=== PATIENT | female | born 1970 | race Caucasian/White ===

== ENCOUNTER 2016-08-20 11:55 | Inpatient (IN) | payer OTHER ==
[2016-08-20 12:00] VITALS: BMI 26.5
[2016-08-20] MEDS ORDERED: FAMOTIDINE 20 MG/50 ML IVPB 20 MG in PREMIX 50 IVPB ONE (12:20)
[2016-08-20] MEDS ORDERED: MAG HYDROX/AL HYDROX/SIMETH 355 ML ORAL.SUSP PO ONE (12:20)
[2016-08-20] MEDS ORDERED: SODIUM CHLORIDE 1,000 ML IV ONE (12:26)
--- NOTE | 2016-08-20 12:28 | PDOC ---
History of Present Illness - General History Source: Patient Exam Limitations: No Limitations <Eran Lucero - Last Filed: 08/20/16 15:41> - General History Source: Patient Exam Limitations: No Limitations - History of Present Illness Initial Comments: 08/20/16 16:29 The patient is a 46 year old female, with a significant past medical history of HTN, hypercholesterolemia, and DM who presents to the emergency department with right sided abdominal pain, nausea, and vomiting since yesterday. She describes the pain as an intermittent burning sensation that radiates up her chest/throat area, ranking her pain a 10/10 in pain intensity. She denies any alleviation from vomiting. She also notes having decreased appetite. She reports having multiple episodes of vomiting describing it as yellow at first, but reports that her vomit is now green in color. She denies recent chills, headache or dizziness. She denies recent diarrhea or constipation. She denies recent dysuria , frequency, urgency or hematuria. She denies recent shortness of breath. Allergies: Penicillins Past surgical history: Cholecystectomy. Tubal ligation. Social history: Nonsmoker. Denies EtOH use and drug use. Primary Care Physician: Not On Staff <Percy Padilla - Last Filed: 08/20/16 16:30> - General Chief Complaint: Pain, Acute Stated Complaint: ABD PAIN Time Seen by Provider: 08/20/16 12:11 Past History - Past Medical History Diabetes: Yes HTN: Yes Hypercholesterolemia: Yes - Surgical History Abdominal Surgery: (TUBAL LIGATION) Cholecystectomy: Yes - Psycho/Social/Smoking Cessation Hx Anxiety: No Suicidal Ideation: No Smoking Status: No Smoking History: Never smoked Number of Cigarettes Smoked Daily: 0 Hx Alcohol Use: No Drug/Substance Use Hx: No Substance Use Type: None Hx Substance Use Treatment: No <Eran Lucero - Last Filed: 08/20/16 15:41> <Percy Padilla - Last Filed: 08/20/16 16:30> - Past Medical History Allergies/Adverse Reactions: Allergies Allergy/AdvReac Type Severity Reaction Status Date / Time Penicillins Allergy Verified 08/20/16 12:00 Home Medications: Ambulatory Orders Enalapril Maleate [Vasotec -] 5 mg PO DAILY #0 tablet 03/03/13 Glipizide [Glucotrol -] 10 mg PO BID #0 tablet 03/03/13 Metformin HCl [Glucophage] 1,000 mg PO BID 04/07/13 Omeprazole [Prilosec (RX)] 40 mg PO DAILY 04/07/13 Simvastatin [Zocor -] 20 mg PO HS 04/07/13 Acetaminophen [Tylenol .Regular Strength -] 650 mg PO Q6H PRN #0 tablet Insulin Glargine,Hum.rec.anlog [Lantus Solostar PEN -] 20 units SQ HS #0 ins 03/22 Unobtainable 08/20/16 Review of Systems - Review of Systems Comments:: 08/20/16 16:30 CONSTITUTIONAL: +subjective fever and loss of appetite. No reported: Chills, Diaphoresis, Generalized Weakness, Malaise HEENT: No reported: Rhinorrhea, Nasal Congestion, Throat Pain, Throat Swelling, Difficulty Swallowing, Mouth Swelling, Ear Pain, Eye Pain, Visual Changes CARDIOVASCULAR: No reported: Chest Pain, Syncope, Palpitations, Irregular Heart Rate, Lightheadedness, Peripheral Edema RESPIRATORY: No reported: Cough, Shortness of Breath, SOB with Exertion, Orthopnea, Wheezing , Stridor, Hemoptysis GASTROINTESTINAL: +abd pain, nausea, and vomiting. No reported: Diarrhea, Constipation, Melena, Hematochezia GENITOURINARY: No reported: Dysuria, Frequency, Urgency, Hesitancy, Flank Pain, Genital Pain MUSCULOSKELETAL: No reported: Myalgia, Arthralgia, Joint Swelling, Back pain, Neck Pain SKIN: No reported: Rash, Itching, Pallor HEMATOLOGIC/IMMUNOLOGIC: No reported: Easy Bleeding, Easy Bruising, Lymphadenopathy, Frequent infections ENDOCRINE: No reported: Unexplained Weight Gain, Unexplained Weight Loss, Heat Intolerance , Cold Intolerance NEUROLOGIC: No reported: Headache, Focal Weakness, Paresthesias, Vertigo, Lightheadedness, Unsteady Gait, Seizure, Mental Status Changes, Incontinence PSYCHIATRIC: No reported: Anxiety, Depression <Percy Padilla - Last Filed: 08/20/16 16:30> *Physical Exam - Vital Signs Last Vital Signs Temp Pulse Resp BP Pulse Ox 98.2 F 122 H 16 155/94 99 08/20/16 11:57 08/20/16 11:57 08/20/16 11:57 08/20/16 11:57 08/20/16 11:57 <Eran Lucero - Last Filed: 08/20/16 15:41> - Vital Signs Last Vital Signs Temp Pulse Resp BP Pulse Ox 98.2 F 98 H 16 155/94 99 08/20/16 11:57 08/20/16 12:59 08/20/16 11:57 08/20/16 11:57 08/20/16 11:57 - Physical Exam Comments: 08/20/16 16:30 GENERAL: The patient is awake, alert, and fully oriented, Nontoxic - in no acute distress. HEAD: Normocephalic, atraumatic. EYES: extraocular movements intact, sclera anicteric, conjunctiva clear. ENT: Normal voice, dry mucous membranes. NECK: Normal range of motion, supple LUNGS: Breath sounds equal, clear to auscultation bilaterally. No wheezes, no rhonchi, no rales. HEART: +tachycardic. Regular rate and rhythm, without murmur, rub or gallop. ABDOMEN: MIld epigastric tenderness. Soft, normoactive bowel sounds. No guarding , no rebound.No CVA tenderness EXTREMITIES: Normal range of motion, no edema. No clubbing or cyanosis. No cords , erythema, or tenderness. NEUROLOGICAL: No facial asymmetry, Normal speech. PSYCH: Normal mood, normal affect. SKIN: Warm, Dry, normal turgor. <Percy Padilla - Last Filed: 08/20/16 16:30> Heart Score/ECG Review - ECG Impressions Comment:: 08/20/16 13:48 Twelve-lead EKG was performed and reviewed by me. There is normal sinus rhythm rate of 125 with some blocked beats no ST change ssuggestive of ischemia <Eran Lucero - Last Filed: 08/20/16 15:41> ED Treatment Course - LABORATORY CBC & Chemistry Diagram: 08/20/16 12:07 08/20/16 12:07 <Eran Lucero - Last Filed: 08/20/16 15:41> - LABORATORY CBC & Chemistry Diagram: 08/20/16 12:07 08/20/16 12:07 - ADDITIONAL ORDERS Additional order review: Laboratory Results 08/20/16 08/20/16 08/20/16 15:20 14:50 12:07 VBG pH 7.32 POC VBG pCO2 34.4 L POC VBG pO2 43.7 Mixed VBG HCO3 17.3 L Sodium 132 L Potassium 4.3 Chloride 95 L D Carbon Dioxide 20 L Anion Gap 17 H BUN 20 H D Creatinine 1.0 D Creat Clearance w eGFR 59.96 Random Glucose 482 H* D Calcium 9.6 Total Bilirubin 0.7 D AST 11 L ALT 25 Alkaline Phosphatase 122 H Creatine Kinase 38 Troponin I < 0.02 Total Protein 8.6 H D Albumin 3.6 D Lipase 91 Serum , Qual Urine Color Urine Appearance Urine pH Ur Specific [place] Urine Protein Urine Glucose (UA) Urine Ketones Urine Blood Urine Nitrite Urine Bilirubin Urine Urobilinogen Ur Leukocyte Esterase Urine RBC Urine WBC Ur Epithelial Cells Urine Crystals Urine Bacteria Hyaline Casts Acetone, Qual Positive moderate 2+ H 08/20/16 12:07 VBG pH POC VBG pCO2 POC VBG pO2 Mixed VBG HCO3 Sodium Potassium Chloride Carbon Dioxide Anion Gap BUN Creatinine Creat Clearance w eGFR Random Glucose Calcium Total Bilirubin AST ALT Alkaline Phosphatase Creatine Kinase Troponin I Total Protein Albumin Lipase Serum , Qual Negative Urine Color Colorless Urine Appearance Clear Urine pH 5.0 Ur Specific [place] 1.031 Urine Protein 2+ H Urine Glucose (UA) 3+ H Urine Ketones 2+ H Urine Blood 1+ H Urine Nitrite Negative Urine Bilirubin Negative Urine Urobilinogen Negative Ur Leukocyte Esterase Trace H Urine RBC 4 Urine WBC 7 Ur Epithelial Cells Few Urine Crystals None seen Urine Bacteria Rare Hyaline Casts 1 Acetone, Qual 08/20/16 12:07 RBC 4.65 MCV 75.0 L MCHC 33.0 RDW 14.7 MPV 8.4 Neutrophils % 84.7 H Lymphocytes % 10.7 D Monocytes % 4.0 Eosinophils % 0.0 D Basophils % 0.6 - Medications Given in the ED: ED Medications Discontinued Medications Generic Name Dose Route Start Last Admin Trade Name Freq PRN Reason Stop Dose Admin Al Hydroxide/Mg Hydroxide 30 ml 08/20/16 12:20 08/20/16 12:50 Mylanta Suspension - PO 08/20/16 12:21 30 ml ONCE ONE Administration Famotidine/Sodium Chloride 20 50 mls @ 100 mls/hr 08/20/16 12:20 08/20/16 12:45 mg/ Miscellaneous IVPB 08/20/16 12:49 100 mls/hr ONCE ONE Administration Sodium Chloride 1,000 mls @ 1,000 mls/hr 08/20/16 12:26 08/20/16 12:45 Normal Saline - IV 08/20/16 13:25 1,000 mls/hr .Q1H ONE Administration Sodium Chloride 1,000 mls @ 1,000 mls/hr 08/20/16 14:04 08/20/16 14:25 Normal Saline - IV 08/20/16 15:03 1,000 mls/hr ASDIR STA Administration <Percy Padilla - Last Filed: 08/20/16 16:30> Medical Decision Making - Medical Decision Making 08/20/16 12:22 46y F hx of htn, dm, hl presents with 1 day of epgiastric/pain radiating to the throat associated with multiple episodes of vomiting that is yellowish and greenish without asociated sob, f/c, diarrhea. on exam the pt was noted to be tachy to 122, with mild epigastric tendreness. differential includes possible gastritis, pancreatitis, obstruction, consider possible ACS, dka will fluid resusitate will give pepcid/maalox, will ck cbc, cmp, lipase, trops will ck ekg will send acetone will place on monitor will r/o uti, 08/20/16 13:03 08/20/16 15:38 pts labs reviewed noted for hyperglycemia, AG of 17, bicarb of 20, serum acetones were +2 pts VBG (obtanied after acetones were returned) shows low normal but not formally acidosis. will give pt insulin bolus and will recheck BGM and manage using boluses of insulin vitals stabilized will admit to med surge case d/w dr. todd (endocrine) and dr. Alegria - agreed with mangement stable for med surg Case discussed in detail with admitting physician including history, physical exam and ancillary studies. Admitting physician has assumed care for the patient, will follow all pending diagnostics and will complete the evaluation and treatment. <Erna Lucero - Last Filed: 08/20/16 15:41> - Medical Decision Making 08/20/16 15:29 Call made to , case discussed. <Percy Padilla - Last Filed: 08/20/16 16:30> *DC/Admit/Observation/Transfer - Discharge Dispostion Admit: Yes <Eran Lucero - Last Filed: 08/20/16 15:41> - Attestations Scribe Attestion: 08/20/16 15:30 Documentation prepared by Percy Padilla, acting as medical social worker for Eran Lucero MD. <Percy Padilla - Last Filed: 08/20/16 16:30> Diagnosis at time of Disposition: Hyperglycemia DKA (diabetic ketoacidoses) Qualifiers: Diabetes mellitus type: type 2 Diabetes mellitus complication detail: without coma Qualified Code(s): E13.10 - Other specified diabetes mellitus with ketoacidosis without coma
[2016-08-20] MEDS ORDERED: FAMOTIDINE 20 MG/50 ML IVPB 50 ML IVPB ONE (12:58)
[2016-08-20] MEDS ORDERED: MAG HYDROX/AL HYDROX/SIMETH 30 ML UNIT-DOSE CUP ONE (12:58)
[2016-08-20 13:04] LABS: BASOPHIL 0.6 % (0-2.0); MCH 24.8 pg (25.7-33.7); MEAN PLT VOLUME 8.4 fl (7.5-11.1); NEUTROPHILS 84.7 % (42.8-82.8); PLATELET COUNT 372 K/MM3 (134-434); RDW 14.7 % (11.6-15.6); WHITE BLOOD COUNT 9.7 K/mm3 (4.0-10.0)
[2016-08-20 13:19] LABS: URINE APPEARANCE CLEAR; URINE BILIRUBIN NEGATIVE (NEGATIVE); URINE COLOR COLORLESS; URINE GLUCOSE (UA) 3+ (NEGATIVE); URINE KETONE 2+ (NEGATIVE); URINE NITRITE NEGATIVE (NEGATIVE); URINE UROBILINOGEN NEGATIVE E.U./dl (0.2-1.0)
[2016-08-20 13:28] LABS: ALBUMIN 3.6 g/dl (3.4-5.0); ANION GAP 17 (8-16); CALCIUM 9.6 mg/dL (8.5-10.1); CO2 20 mmol/L (21-32); SGPT/ALT 25 U/L (12-78)
[2016-08-20 13:33] LABS: ALK PHOS 122 U/L (45-117); BILIRUBIN,TOTAL 0.7 mg/dL (0.2-1.0); COCKROFT - GAULT 76.3045; SGOT/AST 11 U/L (15-37); TOT PROT 8.6 g/dl (6.4-8.2); TROPONIN I < 0.02 ng/ml (0.00-0.05)
[2016-08-20 13:38] LABS: URINE BLOOD 1+ (NEGATIVE); URINE LEUK ESTERASE TRACE (NEGATIVE); URINE PROTEIN 2+ (NEGATIVE)
[2016-08-20] MEDS ORDERED: SODIUM CHLORIDE 1,000 ML IV STA (14:04)
[2016-08-20 14:19] LABS: URINE RBC 4 /hpf (0-3); URINE WBC 7 /hpf (3-5)
[2016-08-20 14:20] LABS: URINE BACTERIA RARE /hpf (NONE SEEN); URINE HYALINE CAST 1 /lpf
[2016-08-20 15:16] LABS: GLUCOSE,RANDOM 482 mg/dL (74-106)
[2016-08-20 15:22] LABS: VENOUS BLOOD GAS HCO3 17.3 meq/L (19-25); VENOUS PH 7.32 (7.32-7.42)
[2016-08-20] MEDS ORDERED: INSULIN REGULAR HUMAN 100 UNITS/ML *VIAL SQ ONE (15:30)
[2016-08-20] MEDS ORDERED: INSULIN REGULAR HUMAN 100 UNITS/ML *VIAL ONE ×2 (15:34→17:14)
--- NOTE | 2016-08-20 15:42 | EKG ---
Test Reason : Blood Pressure : / mmHG Vent. Rate : 098 BPM Atrial Rate : 117 BPM P-R Int : 120 ms QRS Dur : 080 ms QT Int : 328 ms P-R-T Axes : 067 061 046 degrees QTc Int : 418 ms SINUS TACHYCARDIA WITH BLOCKED PREMATURE ATRIAL COMPLEXES POSSIBLE LEFT ATRIAL ENLARGEMENT BORDERLINE ECG WHEN COMPARED WITH ECG OF 05-SEP-2014 05:36, PREMATURE ATRIAL COMPLEXES ARE NOW PRESENT Confirmed by AGNES CAMARA, NUHA ([id number]) on 08/20/2016 3:42:33 PM Referred By: Confirmed By:NUHA ALARCON MD
[2016-08-20] MEDS ORDERED: SODIUM CHLORIDE 1,000 ML IV SCH (16:15)
[2016-08-20] MEDS ORDERED: INSULIN REGULAR HUMAN 100 UNITS/ML *VIAL IVPUSH ONE (17:00)
[2016-08-20] MEDS ORDERED: POTASSIUM CHLORIDE TABS 20 MEQ TABLET.ER (FP) PO ONE ×2 (17:12→17:31)
[2016-08-20] MEDS ORDERED: diphenhydrAMINE HCL 25 MG CAPSULE (FP) PO PRN (20:46)
--- NOTE | 2016-08-20 20:46 | HP ---
Admitting History and Physical - Past Medical History Cardiovascular: Yes: Hyperlipdemia ...LMP: 03/29/13 Endocrine: Yes: Diabetes Mellitus - Smoking History Smoking history: Never smoked Aproximately how many cigarettes per day: 0 - Alcohol/Substance Use Hx Alcohol Use: No - Social History History of Recent Travel: No Home Medications - Allergies Allergies/Adverse Reactions: Allergies Allergy/AdvReac Type Severity Reaction Status Date / Time Penicillins Allergy Verified 08/20/16 12:00 - Home Medications Home Medications: Ambulatory Orders Enalapril Maleate [Vasotec -] 10 mg PO DAILY 08/20/16 Insulin (Levemir) [Levemir Vial] 10 units SQ HS ml 08/26/16 Insulin (Levemir) [Levemir Vial] 10 units SQ HS #1 ml 08/26/16 Pantoprazole Sodium [Protonix] 40 mg PO DAILY #30 tablet. 08/26/16 Physical Examination Vital Signs: Vital Signs Temperature 99.0 F 08/20/16 20:14 Pulse Rate 122 H 08/20/16 20:14 Respiratory Rate 18 08/20/16 20:14 Blood Pressure 146/77 08/20/16 20:14 O2 Sat by Pulse Oximetry (%) 98 08/20/16 20:14 Problem List - Problems (1) DKA (diabetic ketoacidoses) Code(s): E13.10 - OTH DIABETES MELLITUS WITH KETOACIDOSIS WITHOUT COMA Qualifiers: Diabetes mellitus type: type 2 Diabetes mellitus complication detail: without coma Qualified Code(s): E13.10 - Other specified diabetes mellitus with ketoacidosis without coma (2) Nausea and vomiting Code(s): R11.2 - NAUSEA WITH VOMITING, UNSPECIFIED
[2016-08-20] MEDS: SODIUM CHLORIDE 0.45% 1,000 ML IV SCH (22:57)
[2016-08-20] MEDS: HEPARIN NA (PORCINE) 5,000 UNITS/ML 1ML VIAL SQ SCH (22:57)
[2016-08-20] MEDS: INSULIN SLIDING SCALE (NOVOLOG) 1 VIAL SQ SCH (23:11)
[2016-08-21] MEDS: ONDANSETRON 4 MG/2 ML VIAL IVPB PRN ×2 (00:10→09:27)
[2016-08-21] MEDS: INSULIN SLIDING SCALE (NOVOLOG) 1 VIAL SQ SCH ×5 (02:12→23:14)
[2016-08-21] MEDS: metFORMIN HCL 500 MG TABLET (FP) PO SCH ×2 (06:06→17:20)
[2016-08-21 07:20] LABS: BASOPHIL 0.4 % (0-2.0); EOSINOPHIL 0.1 % (0-4.5); MCH 24.7 pg (25.7-33.7); MCHC 33.4 g/dl (32.0-36.0); MEAN CELL VOLUME 73.8 fl (80-96); NEUTROPHILS 73.7 % (42.8-82.8); PLATELET COUNT 304 K/MM3 (134-434); RDW 14.9 % (11.6-15.6)
[2016-08-21 07:33] LABS: ALBUMIN 2.9 g/dl (3.4-5.0); ANION GAP 11 (8-16); CALCIUM 8.3 mg/dL (8.5-10.1); CO2 22 mmol/L (21-32); GLUCOSE,RANDOM 206 mg/dL (74-106); SGOT/AST 10 U/L (15-37); SGPT/ALT 19 U/L (12-78)
[2016-08-21 07:35] LABS: ALK PHOS 95 U/L (45-117); BILIRUBIN,TOTAL 0.5 mg/dL (0.2-1.0); CREATININE 0.6 mg/dL (0.55-1.02); TOT PROT 6.9 g/dl (6.4-8.2)
[2016-08-21] MEDS: SODIUM CHLORIDE 0.45% 1,000 ML IV SCH (08:54)
--- NOTE | 2016-08-21 09:14 | CONSULT ---
Consult Consult Specialty:: Endocrinology Referred by:: Dr Lucero Reason for Consultation:: HYperglycemia - History of Present Illness Chief Complaint: Abdominal pain, nausea History of Present Illness: This is a 46 year old female, with history of HTN, hypercholesterolemia, and DM who presented to the emergency department with right sided abdominal pain, nausea, and vomiting for 2 days. She describes the pain as an intermittent burning sensation that radiates up her chest/throat area, ranking her pain a 10/ 10 in pain intensity. She denies any alleviation from vomiting. Pt found to be hyperglycemic with mild acidosis and treated with IV hydration and Insulin with resolution acidosis and hyperglycemia. Pt referred for mangaement of DM. Pt still with c/o Nausea and vomiting. Pt says she hasn't taken Insulin for sometime but has been taking the oral antidiabetic agents. FS at home 140 to 180. No hypos. - History Source History Provided By: Patient, Medical Record - Past Medical History Cardio/Vascular: Yes: Hyperlipdemia ...LMP: 03/29/13 Endocrine: Yes: Diabetes Mellitus - Alcohol/Substance Use Hx Alcohol Use: No - Smoking History Smoking history: Never smoked Aproximately how many cigarettes per day: 0 - Social History Usual Living Arrangement: With Spouse History of Recent Travel: No Home Medications - Allergies Allergies/Adverse Reactions: Allergies Allergy/AdvReac Type Severity Reaction Status Date / Time Penicillins Allergy Verified 08/20/16 12:00 - Home Medications Home Medications: Ambulatory Orders Metformin HCl [Glucophage] 1,000 mg PO BID 04/07/13 Omeprazole [Prilosec (RX)] 40 mg PO DAILY 04/07/13 Enalapril Maleate [Vasotec -] 10 mg PO DAILY 08/20/16 Review of Systems - Review of Systems Constitutional: reports: Loss of Appetite, Malaise Eyes: reports: No Symptoms HENT: reports: No Symptoms Neck: reports: No Symptoms Cardiovascular: reports: No Symptoms Respiratory: reports: No Symptoms Gastrointestinal: reports: Abdominal Pain, Nausea, Vomiting Genitourinary: reports: No Symptoms Musculoskeletal: reports: No Symptoms Neurological: reports: No Symptoms Endocrine: reports: No Symptoms Physical Exam Vital Signs: Vital Signs Temperature 99.1 F 08/21/16 06:20 Pulse Rate 110 H 08/21/16 06:20 Respiratory Rate 20 08/21/16 06:20 Blood Pressure 161/85 08/21/16 06:20 O2 Sat by Pulse Oximetry (%) 98 08/20/16 22:00 Constitutional: Yes: No Distress, Calm Eyes: Yes: Conjunctiva Clear, EOM Intact HENT: Yes: Atraumatic, Normocephalic Neck: Yes: Supple, Trachea Midline Cardiovascular: Yes: Regular Rate and Rhythm Respiratory: Yes: Regular, CTA Bilaterally Gastrointestinal: Yes: Normal Bowel Sounds, Soft Extremities: Yes: WNL Edema: No Neurological: Yes: Alert, Oriented Labs: CBC, BMP 08/21/16 06:40 08/21/16 06:40 Imaging - Results Chest X-ray: Report Reviewed Assessment/Plan AP: DM uncontrolled with hyperlglycemia BM Q4 hrs Novolog SS coverage for now Change IVF to D5NS if blood sugar drops to less than 120 Start long acting Insulin and nutrition consult once pt is able tolerate food CMP with Mag and Phos in morning Electrolyte replacement as necessary Check HBA1c Will f/U Abd Pain/ Nausea/vomiting Consider GI Consult.
[2016-08-21] MEDS: PANTOPRAZOLE 40 MG TABLET (FP) PO SCH (10:01)
[2016-08-21] MEDS: HEPARIN NA (PORCINE) 5,000 UNITS/ML 1ML VIAL SQ SCH ×2 (10:01→23:10)
[2016-08-21] MEDS ORDERED: INSULIN (NOVOLOG) ASPART 100 UNITS/ML 10ML VIAL ONE (10:13)
[2016-08-21] MEDS: KETOROLAC TROMETHAMINE 30 MG/1 ML VIAL IVPB PRN ×2 (10:56→23:37)
[2016-08-21] MEDS: MAG HYDROX/AL HYDROX/SIMETH 30 ML UNIT-DOSE CUP PO PRN (13:15)
[2016-08-21] MEDS ORDERED: INSULIN SLIDING SCALE (NOVOLOG) 1 VIAL SQ SCH (17:09)
[2016-08-21] MEDS ORDERED: DEXTROSE 5%-NORMAL SALINE 1,000 ML IV SCH (18:15)
--- NOTE | 2016-08-21 18:23 | PN ---
Progress Note, Physician - Current Medication List Current Medications: Active Medications Al Hydroxide/Mg Hydroxide (Mylanta Oral Suspension -) 30 ml PO Q8H PRN PRN Reason: INDIGESTION Last Admin: 08/21/16 13:15 Dose: 30 ml Diphenhydramine HCl (Benadryl -) 25 mg PO HS PRN PRN Reason: INSOMNIA Last Admin: 08/20/16 22:57 Dose: 25 mg Heparin Sodium (Porcine) (Heparin -) 5,000 unit SQ BID [facility] Last Admin: 08/21/16 10:01 Dose: 5,000 unit Dextrose/Sodium Chloride (D5-Ns -) 1,000 mls @ 75 mls/hr IV ASDIR [facility] Last Admin: 08/21/16 18:19 Dose: 75 mls/hr Insulin Aspart (Novolog Vial Sliding Scale -) 1 vial SQ Q4HPO [facility] PRN Reason: Protocol Last Admin: 08/21/16 18:20 Dose: 2 units Ketorolac Tromethamine (Toradol Injection -) 30 mg IVPB Q8H PRN PRN Reason: PAIN Stop: 08/26/16 10:43 Last Admin: 08/21/16 10:56 Dose: 30 mg Ondansetron HCl (Zofran Injection) 4 mg IVPB Q6H PRN PRN Reason: NAUSEA AND/OR VOMITING Last Admin: 08/21/16 09:27 Dose: 4 mg Pantoprazole Sodium (Protonix -) 40 mg PO DAILY [facility] Last Admin: 08/21/16 10:01 Dose: 40 mg - Objective Vital Signs: Vital Signs Temperature 98.2 F 08/21/16 14:00 Pulse Rate 110 H 08/21/16 14:00 Respiratory Rate 20 08/21/16 14:00 Blood Pressure 150/90 08/21/16 14:00 O2 Sat by Pulse Oximetry (%) 98 08/21/16 09:00 Labs: CBC, BMP 08/21/16 06:40 08/21/16 06:40
[2016-08-21 19:02] LABS: ANION GAP 11 (8-16); BILIRUBIN,TOTAL 0.6 mg/dL (0.2-1.0); CALCIUM 8.6 mg/dL (8.5-10.1); CO2 25 mmol/L (21-32); CREATININE 0.5 mg/dL (0.55-1.02); GLUCOSE,RANDOM 157 mg/dL (74-106); SGOT/AST 16 U/L (15-37); SGPT/ALT 22 U/L (12-78); TOT PROT 6.9 g/dl (6.4-8.2)
[2016-08-21 19:03] LABS: ALK PHOS 89 U/L (45-117)
[2016-08-22] MEDS: MAG HYDROX/AL HYDROX/SIMETH 30 ML UNIT-DOSE CUP PO PRN ×2 (01:59→06:59)
[2016-08-22] MEDS: ONDANSETRON 4 MG/2 ML VIAL IVPB PRN ×3 (01:59→15:54)
[2016-08-22] MEDS: KETOROLAC TROMETHAMINE 30 MG/1 ML VIAL IVPB PRN ×2 (06:59→15:53)
[2016-08-22] MEDS: INSULIN SLIDING SCALE (NOVOLOG) 1 VIAL SQ SCH ×4 (07:03→21:55)
[2016-08-22 09:29] LABS: ALBUMIN 2.8 g/dl (3.4-5.0); ANION GAP 11 (8-16); BILIRUBIN,TOTAL 0.4 mg/dL (0.2-1.0); CO2 25 mmol/L (21-32); CREATININE 0.5 mg/dL (0.55-1.02); GLUCOSE,RANDOM 239 mg/dL (74-106); PHOSPHOROUS 2.3 mg/dL (2.5-4.9); SGOT/AST 20 U/L (15-37); SGPT/ALT 25 U/L (12-78); TOT PROT 6.8 g/dl (6.4-8.2)
[2016-08-22 09:30] LABS: ALK PHOS 86 U/L (45-117)
[2016-08-22] MEDS: PANTOPRAZOLE 40 MG TABLET (FP) PO SCH (10:12)
[2016-08-22] MEDS: HEPARIN NA (PORCINE) 5,000 UNITS/ML 1ML VIAL SQ SCH ×2 (10:12→21:54)
--- NOTE | 2016-08-22 12:01 | PN ---
Progress Note (short form) - Note Progress Note: Feels better but still with nausea and vomiting once today Had BM today Poor oral intake Vital Signs Period Temp Pulse Resp BP Sys/Aguilar Pulse Ox Last 24 Hr 97.5 F-98.8 F 105-110 20-20 150-162/88-97 98-98 PE: Aox3 Neck: supple, No JVD HEENT:PERRL, EOMI Lungs: CTA CVS: S1S2 Abd: benign< +BS, Mild diffuse tenderness Ext: No edema Neuro: No focal deficit CMP Sodium 133 mmol/L (136-145) L 08/22/16 07:30 Potassium 3.4 mmol/L (3.5-5.1) L 08/22/16 07:30 Chloride 97 mmol/L (98-107) L 08/22/16 07:30 Carbon Dioxide 25 mmol/L (21-32) 08/22/16 07:30 Anion Gap 11 (8-16) 08/22/16 07:30 BUN 9 mg/dL (7-18) D 08/22/16 07:30 Creatinine 0.5 mg/dL (0.55-1.02) L 08/22/16 07:30 Creat Clearance w eGFR > 60 (>60) 08/22/16 07:30 POC Glucometer 220 UNITS (()) 08/22/16 06:40 Random Glucose 239 mg/dL (74-106) H D 08/22/16 07:30 Hemoglobin A1c % 12.5 % (4.8-6.0) H D 08/21/16 06:40 Calcium 8.0 mg/dL (8.5-10.1) L 08/22/16 07:30 Phosphorus 2.3 mg/dL (2.5-4.9) L 08/22/16 07:30 Magnesium 2.0 mg/dL (1.8-2.4) 08/22/16 07:30 Total Bilirubin 0.4 mg/dL (0.2-1.0) D 08/22/16 07:30 AST 20 U/L (15-37) D 08/22/16 07:30 ALT 25 U/L (12-78) 08/22/16 07:30 Alkaline Phosphatase 86 U/L (45-117) 08/22/16 07:30 Creatine Kinase 38 IU/L (26-192) 08/20/16 12:07 Troponin I < 0.02 ng/ml (0.00-0.05) 08/20/16 12:07 Total Protein 6.8 g/dl (6.4-8.2) 08/22/16 07:30 Albumin 2.8 g/dl (3.4-5.0) L 08/22/16 07:30 Lipase 91 U/L (73-393) 08/20/16 12:07 Serum , Qual Negative 08/20/16 12:07 Current Medications Generic Name Dose Route Start Last Admin Trade Name Freq PRN Reason Stop Dose Admin Al Hydroxide/Mg Hydroxide 30 ml 08/21/16 12:48 08/22/16 06:59 Mylanta Oral Suspension - PO 30 ml Q8H PRN Administration INDIGESTION Diphenhydramine HCl 25 mg 08/20/16 20:46 08/20/16 22:57 Benadryl - PO 25 mg HS PRN Administration INSOMNIA Heparin Sodium (Porcine) 5,000 unit 08/20/16 22:00 08/22/16 10:12 Heparin - SQ 5,000 unit BID ROCÍO Administration Dextrose/Sodium Chloride 1,000 mls @ 75 mls/hr 08/21/16 18:15 08/21/16 18:19 D5-Ns - IV 75 mls/hr ASDIR ROCÍO Administration Insulin Aspart 1 vial 08/21/16 22:00 08/22/16 07:03 Novolog Vial Sliding Scale - SQ 4 units ACHS ROCÍO Administration Protocol Ketorolac Tromethamine 30 mg 08/21/16 10:44 08/22/16 06:59 Toradol Injection - IVPB 08/26/16 10:43 30 mg Q8H PRN Administration PAIN Ondansetron HCl 4 mg 08/20/16 23:53 08/22/16 08:44 Zofran Injection IVPB 4 mg Q6H PRN Administration NAUSEA AND/OR VOMITING Pantoprazole Sodium 40 mg 08/21/16 10:00 08/22/16 10:12 Protonix - PO 40 mg DAILY ROCÍO Administration AP: DM uncontrolled with hyperlglycemia BM Q4 hrs Novolog SS coverage for now Change IVF to D5NS with 20meq KCL 75 ml/hr Start long acting Insulin and nutrition consult once pt is able tolerate food CMP in a.m. Electrolyte replacement as necessary HBA1c: 12.5 Will f/U Monitor blood pressure Abd Pain/ Nausea/vomiting Consider GI Consult.
[2016-08-22] MEDS: D5-NS + 20 MEQ KCL - 1,000 ML IV SCH (12:22)
--- NOTE | 2016-08-22 15:40 | CON.GI ---
Consult Consult Specialty:: GI Referred by:: Dr Alegria Reason for Consultation:: N/V/D and abdominal pain. - History of Present Illness Chief Complaint: abdominal pain History of Present Illness: 46 F with h/o metabolic syndrome with DM x 11 years, admitted with a 3 day h/o epigastric/RUQ pain which she describes as severe, with N/V/D. She states vomitus was bilious. - History Source History Provided By: Patient, Medical Record Limitations to Obtaining History: No Limitations - Past Medical History Cardio/Vascular: Yes: HTN, Hyperlipdemia ...LMP: 03/29/13 Endocrine: Yes: Diabetes Mellitus - Alcohol/Substance Use Hx Alcohol Use: No - Smoking History Smoking history: Never smoked Aproximately how many cigarettes per day: 0 - Social History Usual Living Arrangement: With Spouse History of Recent Travel: No Home Medications - Allergies Allergies/Adverse Reactions: Allergies Allergy/AdvReac Type Severity Reaction Status Date / Time Penicillins Allergy Verified 08/20/16 12:00 - Home Medications Home Medications: Ambulatory Orders Metformin HCl [Glucophage] 1,000 mg PO BID 04/07/13 Omeprazole [Prilosec (RX)] 40 mg PO DAILY 04/07/13 Enalapril Maleate [Vasotec -] 10 mg PO DAILY 08/20/16 Physical Exam-GI Vital Signs: Vital Signs Temperature 99.8 F H 08/22/16 15:22 Pulse Rate 105 H 08/22/16 15:22 Respiratory Rate 20 08/22/16 15:22 Blood Pressure 145/101 08/22/16 15:22 O2 Sat by Pulse Oximetry (%) 98 08/22/16 09:00 Constitutional: Yes: Well Nourished, No Distress HENT: Yes: Normocephalic Neck: Yes: Supple Cardiovascular: Yes: Regular Rate and Rhythm Respiratory: Yes: CTA Bilaterally Gastrointestinal Inspection: Yes: WNL ...Auscultate: Yes: Normoactive Bowel Sounds ...Palpate: Yes: Soft, Tenderness, Tenderness, Epigastium Labs: CBC, BMP 08/21/16 06:40 08/22/16 07:30 Hepatic Panel Total Bilirubin 0.4 mg/dL (0.2-1.0) D 08/22/16 07:30 AST 20 U/L (15-37) D 08/22/16 07:30 ALT 25 U/L (12-78) 08/22/16 07:30 Alkaline Phosphatase 86 U/L (45-117) 08/22/16 07:30 Albumin 2.8 g/dl (3.4-5.0) L 08/22/16 07:30 Abnormal Lab Results 08/21/16 08/22/16 18:00 07:30 Sodium 134 L 133 L Potassium 3.4 L Chloride 97 L Creatinine 0.5 L 0.5 L Random Glucose 157 H D 239 H D Calcium 8.0 L Phosphorus 2.3 L Albumin 3.0 L 2.8 L Imaging - Results Ultrasound: Report Reviewed (sl hepatomegaly, s/p alecia, no ductal dilation) Assessment/Plan 46 F with above history admitted with severe abd pain and N/V Pain symptoms suggest nephrolithiasis (+) blood in urine For now, PPI, reglan 5 tid, Clear liquid diet
[2016-08-22] MEDS: PANTOPRAZOLE SODIUM 100 ML IVPB SCH (15:53)
--- NOTE | 2016-08-22 19:46 | PN ---
Progress Note, Physician History of Present Illness: No abdominal pain Howegver pt still w. some nausea but tolerating diet - Current Medication List Current Medications: Active Medications Al Hydroxide/Mg Hydroxide (Mylanta Oral Suspension -) 30 ml PO Q8H PRN PRN Reason: INDIGESTION Last Admin: 08/22/16 06:59 Dose: 30 ml Diphenhydramine HCl (Benadryl -) 25 mg PO HS PRN PRN Reason: INSOMNIA Last Admin: 08/20/16 22:57 Dose: 25 mg Heparin Sodium (Porcine) (Heparin -) 5,000 unit SQ BID ROCÍO Last Admin: 08/22/16 10:12 Dose: 5,000 unit Dextrose/Sodium Chloride (Dextrose 5%-Normal Saline+20 Meq Kcl -) 1,000 mls @ 75 mls/hr IV ASDIR [facility] Last Admin: 08/22/16 12:22 Dose: 75 mls/hr Pantoprazole Sodium (Protonix 40mg Ivpb (Pre-Docked)) 100 mls @ 200 mls/hr IVPB DAILY [facility] Last Admin: 08/22/16 15:53 Dose: 200 mls/hr Insulin Aspart (Novolog Vial Sliding Scale -) 1 vial SQ ACHS ROCÍO PRN Reason: Protocol Last Admin: 08/22/16 17:59 Dose: 2 units Ketorolac Tromethamine (Toradol Injection -) 30 mg IVPB Q8H PRN PRN Reason: PAIN Stop: 08/26/16 10:43 Last Admin: 08/22/16 15:53 Dose: 30 mg Ondansetron HCl (Zofran Injection) 4 mg IVPB Q6H PRN PRN Reason: NAUSEA AND/OR VOMITING Last Admin: 08/22/16 15:54 Dose: 4 mg - Objective Vital Signs: Vital Signs Temperature 99.3 F 08/22/16 18:05 Pulse Rate 105 H 08/22/16 18:05 Respiratory Rate 20 08/22/16 18:05 Blood Pressure 161/82 08/22/16 18:05 O2 Sat by Pulse Oximetry (%) 98 08/22/16 09:00 Constitutional: Yes: Well Nourished Neck: Yes: Supple Cardiovascular: Yes: WNL, Regular Rate and Rhythm Respiratory: Yes: WNL, Regular, CTA Bilaterally Gastrointestinal: Yes: WNL, Normal Bowel Sounds, Soft Labs: CBC, BMP 08/21/16 06:40 08/22/16 07:30 Problem List - Problems (1) DKA (diabetic ketoacidoses) Assessment/Plan: Change FS to before meals Cont sliding scale Cont IVF HgA1c elevated at 12 Code(s): E13.10 - OTH DIABETES MELLITUS WITH KETOACIDOSIS WITHOUT COMA Qualifiers: Diabetes mellitus type: type 2 Diabetes mellitus complication detail: without coma Qualified Code(s): E13.10 - Other specified diabetes mellitus with ketoacidosis without coma (2) Nausea and vomiting Assessment/Plan: ?gastroparesis Awaiting gastric emptying GI consult Cont zofran Advance diet Code(s): R11.2 - NAUSEA WITH VOMITING, UNSPECIFIED
[2016-08-23] MEDS: D5-NS + 20 MEQ KCL - 1,000 ML IV SCH ×2 (01:41→18:11)
[2016-08-23] MEDS: KETOROLAC TROMETHAMINE 30 MG/1 ML VIAL IVPB PRN ×2 (01:46→21:02)
[2016-08-23] MEDS: ONDANSETRON 4 MG/2 ML VIAL IVPB PRN ×3 (02:17→20:17)
[2016-08-23] MEDS: INSULIN SLIDING SCALE (NOVOLOG) 1 VIAL SQ SCH ×4 (06:19→21:06)
[2016-08-23] MEDS: HEPARIN NA (PORCINE) 5,000 UNITS/ML 1ML VIAL SQ SCH ×2 (10:27→21:06)
[2016-08-23] MEDS: PANTOPRAZOLE SODIUM 100 ML IVPB SCH (10:27)
--- NOTE | 2016-08-23 10:52 | PN ---
Progress Note (short form) - Note Progress Note: Feels better no abd pain, NO vomiting today Still with nausea BGM 200s on D5 1/2NS 75 ml/hr Tolerating liquid diet Vital Signs Period Temp Pulse Resp BP Sys/Aguilar Pulse Ox Last 24 Hr 97.5 F-99.8 F 95-106 20-20 145-161/82-103 98 PE: Aox3 Neck: supple, No JVD HEENT:PERRL, EOMI Lungs: CTA CVS: S1S2 Abd: benign< +BS, Mild diffuse tenderness Ext: No edema Neuro: No focal deficit CMP Sodium 133 mmol/L (136-145) L 08/22/16 07:30 Potassium 3.4 mmol/L (3.5-5.1) L 08/22/16 07:30 Chloride 97 mmol/L (98-107) L 08/22/16 07:30 Carbon Dioxide 25 mmol/L (21-32) 08/22/16 07:30 Anion Gap 11 (8-16) 08/22/16 07:30 BUN 9 mg/dL (7-18) D 08/22/16 07:30 Creatinine 0.5 mg/dL (0.55-1.02) L 08/22/16 07:30 Creat Clearance w eGFR > 60 (>60) 08/22/16 07:30 POC Glucometer 226 UNITS (()) 08/23/16 06:04 Random Glucose 239 mg/dL (74-106) H D 08/22/16 07:30 Hemoglobin A1c % 12.5 % (4.8-6.0) H D 08/21/16 06:40 Calcium 8.0 mg/dL (8.5-10.1) L 08/22/16 07:30 Phosphorus 2.3 mg/dL (2.5-4.9) L 08/22/16 07:30 Magnesium 2.0 mg/dL (1.8-2.4) 08/22/16 07:30 Total Bilirubin 0.4 mg/dL (0.2-1.0) D 08/22/16 07:30 AST 20 U/L (15-37) D 08/22/16 07:30 ALT 25 U/L (12-78) 08/22/16 07:30 Alkaline Phosphatase 86 U/L (45-117) 08/22/16 07:30 Creatine Kinase 38 IU/L (26-192) 08/20/16 12:07 Troponin I < 0.02 ng/ml (0.00-0.05) 08/20/16 12:07 Total Protein 6.8 g/dl (6.4-8.2) 08/22/16 07:30 Albumin 2.8 g/dl (3.4-5.0) L 08/22/16 07:30 Lipase 91 U/L (73-393) 08/20/16 12:07 Serum , Qual Negative 08/20/16 12:07 Current Medications Generic Name Dose Route Start Last Admin Trade Name Freq PRN Reason Stop Dose Admin Al Hydroxide/Mg Hydroxide 30 ml 08/21/16 12:48 08/22/16 06:59 Mylanta Oral Suspension - PO 30 ml Q8H PRN Administration INDIGESTION Diphenhydramine HCl 25 mg 08/20/16 20:46 08/20/16 22:57 Benadryl - PO 25 mg HS PRN Administration INSOMNIA Heparin Sodium (Porcine) 5,000 unit 08/20/16 22:00 08/23/16 10:27 Heparin - SQ 5,000 unit BID ROCÍO Administration Dextrose/Sodium Chloride 1,000 mls @ 75 mls/hr 08/22/16 12:15 08/23/16 01:41 Dextrose 5%-Normal Saline+20 Meq Kcl - IV 75 mls/hr ASDIR ROCÍO Administration Pantoprazole Sodium 100 mls @ 200 mls/hr 08/22/16 15:45 08/23/16 10:27 Protonix 40mg Ivpb (Pre-Docked) IVPB 200 mls/hr DAILY ROCÍO Administration Insulin Aspart 1 vial 08/21/16 22:00 08/23/16 06:19 Novolog Vial Sliding Scale - SQ 4 units ACHS ROCÍO Administration Protocol Ketorolac Tromethamine 30 mg 08/21/16 10:44 08/23/16 01:46 Toradol Injection - IVPB 08/26/16 10:43 30 mg Q8H PRN Administration PAIN Ondansetron HCl 4 mg 08/20/16 23:53 08/23/16 10:34 Zofran Injection IVPB 4 mg Q6H PRN Administration NAUSEA AND/OR VOMITING AP: DM uncontrolled with hyperlglycemia BM Q4 hrs Novolog SS coverage for now IVF to D5NS with 20meq KCL 75 ml/hr Start long acting Insulin and nutrition consult once pt is able tolerate food BMP now Electrolyte replacement as necessary HBA1c: 12.5 Will f/U Monitor blood pressure Abd Pain/ Nausea/vomiting Consider GI Consult noted ?renal colic
[2016-08-23] MEDS ORDERED: INSULIN (NOVOLOG) ASPART 100 UNITS/ML 10ML VIAL ONE (12:11)
--- NOTE | 2016-08-23 13:12 | PN ---
GI Progress Note Subjective: Appears comfortable-in bed States "a little nausea" Has been receiving Zofran - Objective Vital Signs: Vital Signs Temperature 98.8 F 08/23/16 06:00 Pulse Rate 95 H 08/23/16 06:00 Respiratory Rate 20 08/23/16 06:00 Blood Pressure 152/103 08/23/16 06:00 O2 Sat by Pulse Oximetry (%) 98 08/22/16 21:00 Constitutional: Obese HENT: Yes: Normocephalic Neck: Yes: Supple Cardiovascular: Yes: Regular Rate and Rhythm Respiratory: Yes: CTA Bilaterally Gastrointestinal Inspection: Yes: WNL ...Auscultate: Yes: Normoactive Bowel Sounds ...Palpate: Yes: Soft. No: Tenderness Labs: CBC, BMP 08/21/16 06:40 08/22/16 07:30 Assessment/Plan Improving, with no vomiting and less nausea Responding to reglan and PPI Poss gastroenteritis now resolving Rec: d/c gastric emptying scan as it can't be done with patient on reglan-can arrange as opt Advance diet-patient states she is hungry Continue above meds as opt
--- NOTE | 2016-08-23 22:25 | PN ---
Progress Note, Physician - Current Medication List Current Medications: Active Medications Al Hydroxide/Mg Hydroxide (Mylanta Oral Suspension -) 30 ml PO Q8H PRN PRN Reason: INDIGESTION Last Admin: 08/22/16 06:59 Dose: 30 ml Diphenhydramine HCl (Benadryl -) 25 mg PO HS PRN PRN Reason: INSOMNIA Last Admin: 08/20/16 22:57 Dose: 25 mg Heparin Sodium (Porcine) (Heparin -) 5,000 unit SQ BID [facility] Last Admin: 08/23/16 21:06 Dose: 5,000 unit Dextrose/Sodium Chloride (Dextrose 5%-Normal Saline+20 Meq Kcl -) 1,000 mls @ 75 mls/hr IV ASDIR [facility] Last Admin: 08/23/16 18:11 Dose: 75 mls/hr Pantoprazole Sodium (Protonix 40mg Ivpb (Pre-Docked)) 100 mls @ 200 mls/hr IVPB DAILY [facility] Last Admin: 08/23/16 10:27 Dose: 200 mls/hr Insulin Aspart (Novolog Vial Sliding Scale -) 1 vial SQ ACHS ROCÍO PRN Reason: Protocol Last Admin: 08/23/16 21:06 Dose: 4 units Ketorolac Tromethamine (Toradol Injection -) 30 mg IVPB Q8H PRN PRN Reason: PAIN Stop: 08/26/16 10:43 Last Admin: 08/23/16 21:02 Dose: 30 mg Ondansetron HCl (Zofran Injection) 4 mg IVPB Q6H PRN PRN Reason: NAUSEA AND/OR VOMITING Last Admin: 08/23/16 20:17 Dose: 4 mg - Objective Vital Signs: Vital Signs Temperature 99.0 F 08/23/16 18:00 Pulse Rate 97 H 08/23/16 18:00 Respiratory Rate 20 08/23/16 18:00 Blood Pressure 153/99 08/23/16 18:00 O2 Sat by Pulse Oximetry (%) 98 08/22/16 21:00 Labs: CBC, BMP 08/21/16 06:40 08/22/16 07:30 Problem List - Problems (1) DKA (diabetic ketoacidoses) Code(s): E13.10 - OTH DIABETES MELLITUS WITH KETOACIDOSIS WITHOUT COMA Qualifiers: Diabetes mellitus type: type 2 Diabetes mellitus complication detail: without coma Qualified Code(s): E13.10 - Other specified diabetes mellitus with ketoacidosis without coma (2) Nausea and vomiting Code(s): R11.2 - NAUSEA WITH VOMITING, UNSPECIFIED
[2016-08-24] MEDS: ONDANSETRON 4 MG/2 ML VIAL IVPB PRN ×2 (06:33→12:03)
[2016-08-24] MEDS: INSULIN SLIDING SCALE (NOVOLOG) 1 VIAL SQ SCH ×4 (06:33→22:32)
[2016-08-24] MEDS ORDERED: PT OWN MED DRAWER 7, Y5N ONE (09:49)
[2016-08-24] MEDS: KETOROLAC TROMETHAMINE 30 MG/1 ML VIAL IVPB PRN (10:04)
[2016-08-24] MEDS: D5-NS + 20 MEQ KCL - 1,000 ML IV SCH (10:07)
[2016-08-24] MEDS: HEPARIN NA (PORCINE) 5,000 UNITS/ML 1ML VIAL SQ SCH ×2 (10:09→22:05)
[2016-08-24] MEDS: PANTOPRAZOLE SODIUM 100 ML IVPB SCH ×2 (10:11→22:02)
--- NOTE | 2016-08-24 12:33 | PN ---
Progress Note (short form) - Note Progress Note: Nausea vomiting since last night BGM 200s on D5 1/2NS 75 ml/hr diet advanced Vital Signs Period Temp Pulse Resp BP Sys/Aguilar Pulse Ox Last 24 Hr 97.8 F-99.1 F 86-105 17-20 128-159/80-99 PE: Aox3 Neck: supple, No JVD HEENT:PERRL, EOMI Lungs: CTA CVS: S1S2 Abd: benign< +BS, No tenderness Ext: No edema Neuro: No focal deficit CMP Sodium 133 mmol/L (136-145) L 08/22/16 07:30 Potassium 3.4 mmol/L (3.5-5.1) L 08/22/16 07:30 Chloride 97 mmol/L (98-107) L 08/22/16 07:30 Carbon Dioxide 25 mmol/L (21-32) 08/22/16 07:30 Anion Gap 11 (8-16) 08/22/16 07:30 BUN 9 mg/dL (7-18) D 08/22/16 07:30 Creatinine 0.5 mg/dL (0.55-1.02) L 08/22/16 07:30 Creat Clearance w eGFR > 60 (>60) 08/22/16 07:30 POC Glucometer 260 UNITS (()) 08/24/16 11:14 Random Glucose 239 mg/dL (74-106) H D 08/22/16 07:30 Hemoglobin A1c % 12.5 % (4.8-6.0) H D 08/21/16 06:40 Calcium 8.0 mg/dL (8.5-10.1) L 08/22/16 07:30 Phosphorus 2.3 mg/dL (2.5-4.9) L 08/22/16 07:30 Magnesium 2.0 mg/dL (1.8-2.4) 08/22/16 07:30 Total Bilirubin 0.4 mg/dL (0.2-1.0) D 08/22/16 07:30 AST 20 U/L (15-37) D 08/22/16 07:30 ALT 25 U/L (12-78) 08/22/16 07:30 Alkaline Phosphatase 86 U/L (45-117) 08/22/16 07:30 Creatine Kinase 38 IU/L (26-192) 08/20/16 12:07 Troponin I < 0.02 ng/ml (0.00-0.05) 08/20/16 12:07 Total Protein 6.8 g/dl (6.4-8.2) 08/22/16 07:30 Albumin 2.8 g/dl (3.4-5.0) L 08/22/16 07:30 Lipase 91 U/L (73-393) 08/20/16 12:07 Serum , Qual Negative 08/20/16 12:07 Current Medications Generic Name Dose Route Start Last Admin Trade Name Freq PRN Reason Stop Dose Admin Al Hydroxide/Mg Hydroxide 30 ml 08/21/16 12:48 08/22/16 06:59 Mylanta Oral Suspension - PO 30 ml Q8H PRN Administration INDIGESTION Diphenhydramine HCl 25 mg 08/20/16 20:46 08/20/16 22:57 Benadryl - PO 25 mg HS PRN Administration INSOMNIA Heparin Sodium (Porcine) 5,000 unit 08/20/16 22:00 08/24/16 10:09 Heparin - SQ 5,000 unit BID ROCÍO Administration Dextrose/Sodium Chloride 1,000 mls @ 75 mls/hr 08/22/16 12:15 08/24/16 10:07 Dextrose 5%-Normal Saline+20 Meq Kcl - IV 75 mls/hr ASDIR ROCÍO Administration Pantoprazole Sodium 100 mls @ 200 mls/hr 08/22/16 15:45 08/24/16 10:11 Protonix 40mg Ivpb (Pre-Docked) IVPB 200 mls/hr DAILY ROCÍO Administration Insulin Aspart 1 vial 08/21/16 22:00 08/24/16 11:49 Novolog Vial Sliding Scale - SQ 6 units ACHS ROCÍO Administration Protocol Ketorolac Tromethamine 30 mg 08/21/16 10:44 08/24/16 10:04 Toradol Injection - IVPB 08/26/16 10:43 30 mg Q8H PRN Administration PAIN Ondansetron HCl 4 mg 08/20/16 23:53 08/24/16 12:03 Zofran Injection IVPB 4 mg Q6H PRN Administration NAUSEA AND/OR VOMITING AP: DM uncontrolled with hyperlglycemia BM Q4 hrs Novolog SS coverage for now IVF to D5NS with 20meq KCL 75 ml/hr Start long acting Insulin and nutrition consult once pt is able tolerate food CMP stat. Not done yesterday Electrolyte replacement as necessary HBA1c: 12.5 Will f/U Monitor blood pressure Abd Pain/ Nausea/vomiting GI Consult on the case. On PPI
[2016-08-24 13:38] LABS: ALBUMIN 2.9 g/dl (3.4-5.0); ALK PHOS 89 U/L (45-117); ANION GAP 8 (8-16); BILIRUBIN,TOTAL 0.3 mg/dL (0.2-1.0); CALCIUM 8.2 mg/dL (8.5-10.1); CO2 27 mmol/L (21-32); CREATININE 0.6 mg/dL (0.55-1.02); GLUCOSE,RANDOM 230 mg/dL (74-106); SGOT/AST 15 U/L (15-37); SGPT/ALT 26 U/L (12-78); TOT PROT 6.6 g/dl (6.4-8.2)
--- NOTE | 2016-08-24 18:42 | PN ---
GI Progress Note Subjective: still with intractable nausea and vomitig despite adequate medication, epigastric pain persists, ct was ordered but would not be able to tolerate contrast, abdominal ultrasound was done which revealed a normal CBD and patient noted to have a fatty liver - Objective Vital Signs: Vital Signs Temperature 99.0 F 08/24/16 15:21 Pulse Rate 99 H 08/24/16 15:21 Respiratory Rate 18 08/24/16 15:21 Blood Pressure 145/101 08/24/16 15:21 O2 Sat by Pulse Oximetry (%) 99 08/24/16 09:00 Constitutional: Well Nourished Eyes: Yes: Conjunctiva Clear HENT: Yes: Atraumatic Neck: Yes: Supple Cardiovascular: Yes: Regular Rate and Rhythm Respiratory: Yes: CTA Bilaterally ...Palpate: Yes: Soft. No: Firm/Rigid, Guarding, Hepatomegaly, Mass, Pulsatile Mass, Splenomegaly, Tenderness Labs: CBC, BMP 08/21/16 06:40 08/24/16 12:55 Problem List - Problems (1) Intractable abdominal pain Assessment/Plan: associated with nausea and vomiting r/o Peptic ulcer disease, gastroparesis R> IV Reglan, Zofran d/c Toradol Dilaudid prn' EGD as an outpatient--patient was made aware to follow-up Code(s): R10.9 - UNSPECIFIED ABDOMINAL PAIN
[2016-08-24] MEDS ORDERED: SODIUM CHLORIDE 1,000 ML IV SCH (18:45)
[2016-08-24] MEDS: SODIUM CHLORIDE 1,000 ML IV SCH (19:01)
[2016-08-24] MEDS: HYDROmorphone HCL CARPU-JECT 1 MG/1 ML DISP.SYRIN IVPB PRN (19:02)
--- NOTE | 2016-08-24 19:55 | PN ---
Progress Note, Physician - Current Medication List Current Medications: Active Medications Al Hydroxide/Mg Hydroxide (Mylanta Oral Suspension -) 30 ml PO Q8H PRN PRN Reason: INDIGESTION Last Admin: 08/22/16 06:59 Dose: 30 ml Diphenhydramine HCl (Benadryl -) 25 mg PO HS PRN PRN Reason: INSOMNIA Last Admin: 08/20/16 22:57 Dose: 25 mg Heparin Sodium (Porcine) (Heparin -) 5,000 unit SQ BID ROCÍO Last Admin: 08/24/16 10:09 Dose: 5,000 unit Hydromorphone HCl (Dilaudid Injection -) 1 mg IVPB Q4H PRN PRN Reason: PAIN Stop: 08/25/16 18:31 Last Admin: 08/24/16 19:02 Dose: 1 mg Pantoprazole Sodium (Protonix 40mg Ivpb (Pre-Docked)) 100 mls @ 200 mls/hr IVPB BID ROCÍO Sodium Chloride (Normal Saline -) 1,000 mls @ 150 mls/hr IV ASDIR ROCÍO Stop: 08/27/16 01:24 Last Admin: 08/24/16 19:01 Dose: 150 mls/hr Insulin Aspart (Novolog Vial Sliding Scale -) 1 vial SQ ACHS ROCÍO PRN Reason: Protocol Last Admin: 08/24/16 17:10 Dose: 4 units Metoclopramide HCl (Reglan Injection -) 10 mg IVPB Q8H-IV ROCÍO Ondansetron HCl (Zofran Injection) 4 mg IVPB Q4H ROCÍO Stop: 08/25/16 06:34 Ondansetron HCl (Zofran Injection) 4 mg IVPB Q4H PRN PRN Reason: NAUSEA AND/OR VOMITING - Objective Vital Signs: Vital Signs Temperature 99.3 F 08/24/16 19:00 Pulse Rate 101 H 08/24/16 19:00 Respiratory Rate 18 08/24/16 19:00 Blood Pressure 147/77 08/24/16 19:00 O2 Sat by Pulse Oximetry (%) 99 08/24/16 09:00 Labs: CBC, BMP 08/21/16 06:40 08/24/16 12:55 Problem List - Problems (1) DKA (diabetic ketoacidoses) Code(s): E13.10 - OTH DIABETES MELLITUS WITH KETOACIDOSIS WITHOUT COMA Qualifiers: Diabetes mellitus type: type 2 Diabetes mellitus complication detail: without coma Qualified Code(s): E13.10 - Other specified diabetes mellitus with ketoacidosis without coma (2) Nausea and vomiting Code(s): R11.2 - NAUSEA WITH VOMITING, UNSPECIFIED
[2016-08-24] MEDS: ONDANSETRON 4 MG/2 ML VIAL IVPB SCH (22:02)
[2016-08-24] MEDS: METOCLOPRAMIDE HCL INJECTION 10 MG/2 ML VIAL IVPB SCH (22:02)
[2016-08-25] MEDS: ONDANSETRON 4 MG/2 ML VIAL IVPB SCH ×3 (01:08→06:56)
[2016-08-25] MEDS: METOCLOPRAMIDE HCL INJECTION 10 MG/2 ML VIAL IVPB SCH ×3 (02:37→18:48)
[2016-08-25] MEDS ORDERED: ONDANSETRON 4 MG/2 ML VIAL IVPB PRN (06:35)
[2016-08-25] MEDS: INSULIN SLIDING SCALE (NOVOLOG) 1 VIAL SQ SCH ×3 (06:55→16:38)
[2016-08-25 08:02] LABS: ALBUMIN 2.5 g/dl (3.4-5.0); ANION GAP 9 (8-16); CALCIUM 8.2 mg/dL (8.5-10.1); CO2 24 mmol/L (21-32); CREATININE 0.6 mg/dL (0.55-1.02); GLUCOSE,RANDOM 136 mg/dL (74-106); SGOT/AST 20 U/L (15-37); SGPT/ALT 26 U/L (12-78)
[2016-08-25 08:04] LABS: ALK PHOS 77 U/L (45-117); BILIRUBIN,TOTAL 0.3 mg/dL (0.2-1.0)
--- NOTE | 2016-08-25 09:14 | PN ---
Progress Note (short form) - Note Progress Note: Feels better No Nausea vomiting since last night Tolerating regular diet Vital Signs Period Temp Pulse Resp BP Sys/Aguilar Pulse Ox Last 24 Hr 97.9 F-99.3 F 84-101 18-20 101-147/68-101 99 PE: Aox3 Neck: supple, No JVD HEENT:PERRL, EOMI Lungs: CTA CVS: S1S2 Abd: benign< +BS, No tenderness Ext: No edema Neuro: No focal deficit CMP Sodium 139 mmol/L (136-145) 08/25/16 07:10 Potassium 3.5 mmol/L (3.5-5.1) 08/25/16 07:10 Chloride 106 mmol/L (98-107) 08/25/16 07:10 Carbon Dioxide 24 mmol/L (21-32) 08/25/16 07:10 Anion Gap 9 (8-16) 08/25/16 07:10 BUN 7 mg/dL (7-18) 08/25/16 07:10 Creatinine 0.6 mg/dL (0.55-1.02) 08/25/16 07:10 Creat Clearance w eGFR > 60 (>60) 08/25/16 07:10 POC Glucometer 177 UNITS (()) 08/25/16 16:36 Random Glucose 136 mg/dL (74-106) H D 08/25/16 07:10 Hemoglobin A1c % 12.5 % (4.8-6.0) H D 08/21/16 06:40 Calcium 8.2 mg/dL (8.5-10.1) L 08/25/16 07:10 Phosphorus 2.3 mg/dL (2.5-4.9) L 08/22/16 07:30 Magnesium 2.0 mg/dL (1.8-2.4) 08/22/16 07:30 Total Bilirubin 0.3 mg/dL (0.2-1.0) 08/25/16 07:10 AST 20 U/L (15-37) D 08/25/16 07:10 ALT 26 U/L (12-78) 08/25/16 07:10 Alkaline Phosphatase 77 U/L (45-117) 08/25/16 07:10 Creatine Kinase 38 IU/L (26-192) 08/20/16 12:07 Troponin I < 0.02 ng/ml (0.00-0.05) 08/20/16 12:07 Total Protein 6.0 g/dl (6.4-8.2) L 08/25/16 07:10 Albumin 2.5 g/dl (3.4-5.0) L 08/25/16 07:10 Lipase 91 U/L (73-393) 08/20/16 12:07 Serum , Qual Negative 08/20/16 12:07 Current Medications Generic Name Dose Route Start Last Admin Trade Name Freq PRN Reason Stop Dose Admin Al Hydroxide/Mg Hydroxide 30 ml 08/21/16 12:48 08/22/16 06:59 Mylanta Oral Suspension - PO 30 ml Q8H PRN Administration INDIGESTION Diphenhydramine HCl 25 mg 08/20/16 20:46 08/20/16 22:57 Benadryl - PO 25 mg HS PRN Administration INSOMNIA Heparin Sodium (Porcine) 5,000 unit 08/20/16 22:00 08/25/16 11:47 Heparin - SQ 5,000 unit BID ROCÍO Administration Pantoprazole Sodium 100 mls @ 200 mls/hr 08/24/16 22:00 08/25/16 11:47 Protonix 40mg Ivpb (Pre-Docked) IVPB 200 mls/hr BID ROCÍO Administration Insulin Aspart 1 vial 08/21/16 22:00 08/25/16 16:38 Novolog Vial Sliding Scale - SQ 2 units ACHS ROCÍO Administration Protocol Insulin Detemir 10 units 08/25/16 22:00 Levemir Vial SQ HS ROCÍO Metoclopramide HCl 10 mg 08/24/16 18:45 08/25/16 10:06 Reglan Injection - IVPB 10 mg Q8H-IV ROCÍO Administration Ondansetron HCl 4 mg 08/25/16 06:35 Zofran Injection IVPB Q4H PRN NAUSEA AND/OR VOMITING AP: DM uncontrolled with hyperlglycemia BGM QACHS Novolog SS coverage for now Levemri 10 units daily starting today Electrolyte replacement as necessary HBA1c: 12.5 Will f/U Monitor blood pressure Abd Pain/ Nausea/vomiting: improving GI Consult on the case. On PPI and Reglan
[2016-08-25] MEDS: HYDROmorphone HCL CARPU-JECT 1 MG/1 ML DISP.SYRIN IVPB PRN (11:06)
[2016-08-25] MEDS: HEPARIN NA (PORCINE) 5,000 UNITS/ML 1ML VIAL SQ SCH ×2 (11:47→21:03)
[2016-08-25] MEDS: PANTOPRAZOLE SODIUM 100 ML IVPB SCH ×2 (11:47→21:04)
[2016-08-25] MEDS ORDERED: INSULIN (NOVOLOG) ASPART 100 UNITS/ML 10ML VIAL ONE ×2 (11:55→20:34)
[2016-08-25] MEDS: SODIUM CHLORIDE 1,000 ML IV SCH (16:07)
[2016-08-25] MEDS ORDERED: ACETAMINOPHEN 325 MG TABLET (FP) PO ONE (16:15)
[2016-08-25] MEDS ORDERED: ACETAMINOPHEN 325 MG TABLET (FP) PO PRN (20:03)
[2016-08-25] MEDS ORDERED: INSULIN DETEMIR 100 UNITS/ML MDV SQ SCH (22:00)
[2016-08-25] MEDS ORDERED: INSULIN SLIDING SCALE (NOVOLOG) 1 VIAL SQ SCH (22:00)
--- NOTE | 2016-08-25 23:19 | PN ---
Progress Note, Physician - Current Medication List Current Medications: Active Medications Acetaminophen (Tylenol -) 650 mg PO Q4H PRN PRN Reason: FEVER OR PAIN Al Hydroxide/Mg Hydroxide (Mylanta Oral Suspension -) 30 ml PO Q8H PRN PRN Reason: INDIGESTION Last Admin: 08/22/16 06:59 Dose: 30 ml Diphenhydramine HCl (Benadryl -) 25 mg PO HS PRN PRN Reason: INSOMNIA Last Admin: 08/20/16 22:57 Dose: 25 mg Heparin Sodium (Porcine) (Heparin -) 5,000 unit SQ BID ROCÍO Last Admin: 08/25/16 21:03 Dose: 5,000 unit Pantoprazole Sodium (Protonix 40mg Ivpb (Pre-Docked)) 100 mls @ 200 mls/hr IVPB BID ROCÍO Last Admin: 08/25/16 21:04 Dose: 200 mls/hr Insulin Aspart (Novolog Vial Sliding Scale -) 1 vial SQ TIDAC ROCÍO PRN Reason: Protocol Insulin Aspart (Novolog Vial Sliding Scale -) 1 vial SQ HS ROCÍO PRN Reason: Protocol Last Admin: 08/25/16 21:04 Dose: Not Given Metoclopramide HCl (Reglan Injection -) 10 mg IVPB Q8H-IV ROCÍO Last Admin: 08/25/16 18:48 Dose: 10 mg Ondansetron HCl (Zofran Injection) 4 mg IVPB Q4H PRN PRN Reason: NAUSEA AND/OR VOMITING - Objective Vital Signs: Vital Signs Temperature 97.5 F L 08/25/16 18:10 Pulse Rate 93 H 08/25/16 18:10 Respiratory Rate 20 08/25/16 18:10 Blood Pressure 163/85 08/25/16 18:10 O2 Sat by Pulse Oximetry (%) 100 08/25/16 09:00 Labs: CBC, BMP 08/21/16 06:40 08/25/16 07:10 Problem List - Problems (1) DKA (diabetic ketoacidoses) Code(s): E13.10 - OTH DIABETES MELLITUS WITH KETOACIDOSIS WITHOUT COMA Qualifiers: Diabetes mellitus type: type 2 Diabetes mellitus complication detail: without coma Qualified Code(s): E13.10 - Other specified diabetes mellitus with ketoacidosis without coma (2) Nausea and vomiting Code(s): R11.2 - NAUSEA WITH VOMITING, UNSPECIFIED
[2016-08-26] MEDS: METOCLOPRAMIDE HCL INJECTION 10 MG/2 ML VIAL IVPB SCH ×3 (02:34→17:51)
[2016-08-26] MEDS: INSULIN SLIDING SCALE (NOVOLOG) 1 VIAL SQ SCH ×3 (06:30→17:50)
[2016-08-26] MEDS ORDERED: INSULIN (NOVOLOG) ASPART 100 UNITS/ML 10ML VIAL ONE ×2 (06:47→21:23)
[2016-08-26] MEDS ORDERED: PT OWN MED DRAWER 7, Y5N ONE (06:48)
--- NOTE | 2016-08-26 08:45 | PN ---
Progress Note (short form) - Note Progress Note: Feels good DEnies any complaints Improving blood sugar Vital Signs Period Temp Pulse Resp BP Sys/Aguilar Pulse Ox Last 24 Hr 97.5 F-99.4 F 83-100 16-20 121-163/73-96 100-100 PE: Aox3 Neck: supple, No JVD HEENT:PERRL, EOMI Lungs: CTA CVS: S1S2 Abd: benign< +BS, No tenderness Ext: No edema Neuro: No focal deficit CMP Sodium 139 mmol/L (136-145) 08/25/16 07:10 Potassium 3.5 mmol/L (3.5-5.1) 08/25/16 07:10 Chloride 106 mmol/L (98-107) 08/25/16 07:10 Carbon Dioxide 24 mmol/L (21-32) 08/25/16 07:10 Anion Gap 9 (8-16) 08/25/16 07:10 BUN 7 mg/dL (7-18) 08/25/16 07:10 Creatinine 0.6 mg/dL (0.55-1.02) 08/25/16 07:10 Creat Clearance w eGFR > 60 (>60) 08/25/16 07:10 POC Glucometer 165 UNITS (()) 08/26/16 06:28 Random Glucose 136 mg/dL (74-106) H D 08/25/16 07:10 Hemoglobin A1c % 12.5 % (4.8-6.0) H D 08/21/16 06:40 Calcium 8.2 mg/dL (8.5-10.1) L 08/25/16 07:10 Phosphorus 2.3 mg/dL (2.5-4.9) L 08/22/16 07:30 Magnesium 2.0 mg/dL (1.8-2.4) 08/22/16 07:30 Total Bilirubin 0.3 mg/dL (0.2-1.0) 08/25/16 07:10 AST 20 U/L (15-37) D 08/25/16 07:10 ALT 26 U/L (12-78) 08/25/16 07:10 Alkaline Phosphatase 77 U/L (45-117) 08/25/16 07:10 Creatine Kinase 38 IU/L (26-192) 08/20/16 12:07 Troponin I < 0.02 ng/ml (0.00-0.05) 08/20/16 12:07 Total Protein 6.0 g/dl (6.4-8.2) L 08/25/16 07:10 Albumin 2.5 g/dl (3.4-5.0) L 08/25/16 07:10 Lipase 91 U/L (73-393) 08/20/16 12:07 Serum , Qual Negative 08/20/16 12:07 Current Medications Generic Name Dose Route Start Last Admin Trade Name Freq PRN Reason Stop Dose Admin Acetaminophen 650 mg 08/25/16 20:03 Tylenol - PO Q4H PRN FEVER OR PAIN Al Hydroxide/Mg Hydroxide 30 ml 08/21/16 12:48 08/22/16 06:59 Mylanta Oral Suspension - PO 30 ml Q8H PRN Administration INDIGESTION Diphenhydramine HCl 25 mg 08/20/16 20:46 08/20/16 22:57 Benadryl - PO 25 mg HS PRN Administration INSOMNIA Heparin Sodium (Porcine) 5,000 unit 08/20/16 22:00 08/25/16 21:03 Heparin - SQ 5,000 unit BID ROCÍO Administration Pantoprazole Sodium 100 mls @ 200 mls/hr 08/24/16 22:00 08/25/16 21:04 Protonix 40mg Ivpb (Pre-Docked) IVPB 200 mls/hr BID ROCÍO Administration Insulin Aspart 1 vial 08/26/16 07:00 08/26/16 06:30 Novolog Vial Sliding Scale - SQ 4 units TIDAC ROCÍO Administration Protocol Insulin Aspart 1 vial 08/25/16 22:00 08/25/16 21:04 Novolog Vial Sliding Scale - SQ Not Given HS ROCÍO Protocol Metoclopramide HCl 10 mg 08/24/16 18:45 08/26/16 02:34 Reglan Injection - IVPB 10 mg Q8H-IV ROCÍO Administration Ondansetron HCl 4 mg 08/25/16 06:35 Zofran Injection IVPB Q4H PRN NAUSEA AND/OR VOMITING AP: DM uncontrolled with hyperlglycemia BGM QACHS Novolog SS coverage for now Levemri 10 units daily starting today, was discontinued yesterday Pt to be discharged on Basal and bolus insulin regimen as she came in with mild acidosis. Will get C peptide and antibodies before deciding whether Insulin can be discontinued. Electrolyte replacement as necessary HBA1c: 12.5 Will f/U Monitor blood pressure Abd Pain/ Nausea/vomiting: improving GI Consult on the case. On PPI and Reglan
[2016-08-26] MEDS: PANTOPRAZOLE SODIUM 100 ML IVPB SCH (12:22)
[2016-08-26] MEDS: HEPARIN NA (PORCINE) 5,000 UNITS/ML 1ML VIAL SQ SCH (12:22)
[2016-08-26] MEDS: MAG HYDROX/AL HYDROX/SIMETH 30 ML UNIT-DOSE CUP PO PRN (17:49)
[2016-08-26] MEDS ORDERED: INSULIN DETEMIR 100 UNITS/ML MDV SQ SCH (22:00)
[2016-08-26 22:56] VITALS: BP 151/67; PULSE 88; TEMP 98.8
== END 2016-08-26 21:28 | disposition home or self-care (01) | DRG 420 ==
LOC: JER 11:55 → JERBED 15:48 → J5S 18:08
PROVIDERS: ADMIT Internal Medicine; ATTEND Internal Medicine
DX: E13.10 Other specified diabetes mellitus with ketoacidosis without coma (principal); Z79.4 Long term (current) use of insulin; I10 Essential (primary) hypertension; E78.5 Hyperlipidemia, unspecified; K76.0 Fatty (change of) liver, not elsewhere classified
CPT/HCPCS: 36415; 71020-TC; 76700-TC; 80053; 81003; 81015; 82009; 82550; 82803; 83036; 83690; 83735; 84100; 84484; 84703; 85025; 87081; 93005; 93010; 99283-25; J1644

== ENCOUNTER 2016-09-12 11:11 | Inpatient (IN) | payer MEDICARE, OTHER ==
[2016-09-12] MEDS ORDERED: SODIUM CHLORIDE 1,000 ML IV STA (12:13)
[2016-09-12] MEDS ORDERED: ONDANSETRON 4 MG/2 ML VIAL IVPUSH ONE (12:13)
[2016-09-12] MEDS ORDERED: morphine CARPU-JECT 4 MG/1 ML DISP.SYRIN IVPUSH ONE (12:13)
--- NOTE | 2016-09-12 12:13 | PDOC ---
History of Present Illness - General History Source: Patient Exam Limitations: No Limitations - History of Present Illness Initial Comments: 09/12/16 12:34 The patient is a 46 year old female, with a significant past medical history of diabetes, hypertension, and hyperlipidemia, who presents to the emergency department complaining of diffuse abdominal pain radiating into her back for approximately 1 month. The patient reports she has been unable to tolerate solids or fluids p.o. since the onset of her symptoms. She reports associated nausea and vomiting, but denies diarrhea or constipation. Patient reports bilateral flank pain, but denies any dysuria, hematuria, frequency, or urgency. Patient reports she was admitted on 08/20/16 for DKA. Since her discharge, she states she has been noncompliant with her diabetes medication, because she has been unable to get up from bed due to increasing pain and weakness. Patient reports her baseline blood glucose levels are in the 500 range. She denies any fever, chills, cough, headache, or dizziness. She denies any chest pain shortness of breath, diaphoresis, or palpitations. She denies any recent travel or sick contacts. Allergies: Penicillins Past Surgical History: Cholecystectomy. Tubal Ligation. Social History: Non-smoker. Denies alcohol or drug use. <Bakari Paul - Last Filed: 09/12/16 13:31> <Luli Rodriguez - Last Filed: 09/12/16 15:08> - General Chief Complaint: Pain Stated Complaint: ABD PAIN Time Seen by Provider: 09/12/16 11:29 Past History <Bakari Paul - Last Filed: 09/12/16 13:31> - Past Medical History Diabetes: Yes HTN: Yes Hypercholesterolemia: Yes - Surgical History Abdominal Surgery: (TUBAL LIGATION) Cholecystectomy: Yes - Reproductive History Is Patient Now?: No - Psycho/Social/Smoking Cessation Hx Anxiety: No Suicidal Ideation: No Smoking Status: No Smoking History: Never smoked Number of Cigarettes Smoked Daily: 0 Hx Alcohol Use: No Drug/Substance Use Hx: No Substance Use Type: None Hx Substance Use Treatment: No <Luli Rodriguez - Last Filed: 09/12/16 15:08> - Past Medical History Allergies/Adverse Reactions: Allergies Allergy/AdvReac Type Severity Reaction Status Date / Time Penicillins Allergy Verified 09/12/16 11:23 Home Medications: Ambulatory Orders Enalapril Maleate [Vasotec -] 10 mg PO DAILY 08/20/16 Insulin (Levemir) [Levemir Vial] 10 units SQ HS #1 ml 08/26/16 Glipizide [Glipizide ER] 10 mg PO DAILY 09/12/16 Review of Systems - Review of Systems Able to Perform ROS?: Yes Comments:: 09/12/16 12:34 GENERAL/CONSTITUTIONAL: Yes: +weakness. No fever or chills. HEAD, EYES, EARS, NOSE AND THROAT: No change in vision. No ear pain or discharge. No sore throat. CARDIOVASCULAR: No chest pain or shortness of breath. RESPIRATORY: No cough, wheezing, or hemoptysis. GASTROINTESTINAL: Yes: +Abdominal pain, +nausea, +vomiting. No diarrhea or constipation. GENITOURINARY: Yes: +bilateral flank pain. No dysuria, frequency, or change in urination. MUSCULOSKELETAL: Yes: +back pain. No joint or muscle swelling or pain. No neck pain. SKIN: No rash NEUROLOGIC: No headache, vertigo, loss of consciousness, or change in strength/ sensation. ENDOCRINE: No increased thirst. No abnormal weight change. HEMATOLOGIC/LYMPHATIC: No anemia, easy bleeding, or history of blood clots. ALLERGIC/IMMUNOLOGIC: No hives or skin allergy. <Bakari Paul - Last Filed: 09/12/16 13:31> *Physical Exam - Vital Signs Last Vital Signs Temp Pulse Resp BP Pulse Ox 98.5 F 117 H 20 122/79 98 09/12/16 11:20 09/12/16 11:20 09/12/16 11:20 09/12/16 11:20 09/12/16 11:20 - Physical Exam Comments: 09/12/16 12:34 GENERAL: Awake, alert, and fully oriented, in no acute distress HEAD: No signs of trauma EYES: PERRLA, EOMI, sclera anicteric, conjunctiva clear ENT: Auricles normal inspection, hearing grossly normal, nares patent, oropharynx clear without exudates. Dry mucosa NECK: Normal ROM, supple, no lymphadenopathy, JVD, or masses LUNGS: Breath sounds equal, clear to auscultation bilaterally. No wheezes, and no crackles HEART: Tachycardic. Regular rhythm, normal S1 and S2, no murmurs, rubs or gallops ABDOMEN: Bilateral upper quadrant tenderness to palpation, but no guarding or rebound. Normoactive bowel sounds. No masses. EXTREMITIES: Normal range of motion, no edema. No clubbing or cyanosis. No cords, erythema, or tenderness NEUROLOGICAL: Cranial nerves II through XII grossly intact. Normal speech, normal gait SKIN: Warm, Dry, normal turgor, no rashes or lesions noted. <Bakari Paul - Last Filed: 09/12/16 13:31> - Vital Signs Last Vital Signs Temp Pulse Resp BP Pulse Ox 98.5 F 117 H 20 122/79 98 09/12/16 11:20 09/12/16 11:20 09/12/16 11:20 09/12/16 11:20 09/12/16 11:20 <Luli Rodriguez - Last Filed: 09/12/16 15:08> ED Treatment Course - LABORATORY CBC & Chemistry Diagram: 09/12/16 12:15 09/12/16 12:15 - ADDITIONAL ORDERS Additional order review: 09/12/16 12:15 RBC 5.20 D MCV 75.0 L MCHC 33.1 RDW 15.2 MPV 8.2 Neutrophils % 62.5 Lymphocytes % 26.2 D Monocytes % 9.2 Eosinophils % 1.3 D Basophils % 0.8 - Medications Given in the ED: ED Medications Discontinued Medications Generic Name Dose Route Start Last Admin Trade Name Martinq PRN Reason Stop Dose Admin Morphine Sulfate 4 mg 09/12/16 12:13 09/12/16 12:30 Morphine Injection - IVPUSH 09/12/16 12:14 4 mg ONCE ONE Administration Ondansetron HCl 4 mg 09/12/16 12:13 09/12/16 12:30 Zofran Injection IVPUSH 09/12/16 12:14 4 mg ONCE ONE Administration <Bakari Paul - Last Filed: 09/12/16 13:31> - LABORATORY CBC & Chemistry Diagram: 09/12/16 12:15 09/12/16 12:15 <Luli Rodriguez - Last Filed: 09/12/16 15:08> Medical Decision Making - Medical Decision Making 09/12/16 15:06 Pt with elevated blood glucose but normal HCO3 and normal anion gap. She states that she has barely been eating since her last admission, and has not been taking insulin. This may more likely be starvation ketosis, as she would have a much higher glucose if she had been eating all along and not taking insulin. Will continue IV hydration, will give 6 units insulin SC. I have treated for UTI with rocephin. For the abdominal pain and vomiting, I suspect she may have gastroparesis, given her poor insight into her diabetes and need for careful followup (for example, has not filled rx for insulin, and has not checked a fingerstick since discharge from last admission). Will admit to hospitalist- d/ w Dr. Pandya. Will not place on insulin drip for the above reasons. <Luli Rodriguez - Last Filed: 09/12/16 15:08> *DC/Admit/Observation/Transfer - Attestations Scribe Attestion: 09/12/16 12:35 Documentation prepared by Bakari Paul, acting as medical staff assistant for Luli Rodriguez MD. <Bakari Paul - Last Filed: 09/12/16 13:31> - Discharge Dispostion Admit: Yes <Luli Rodriguez - Last Filed: 09/12/16 15:08> Diagnosis at time of Disposition: Hyperglycemia, Intractable abdominal pain, UTI (urinary tract infection) Nausea and vomiting Qualifiers: Vomiting type: unspecified Vomiting Intractability: intractable Qualified Code( s): R11.2 - Nausea with vomiting, unspecified - Discharge Dispostion Condition at time of disposition: Stable
[2016-09-12] MEDS ORDERED: morphine CARPU-JECT 4 MG/1 ML DISP.SYRIN ONE (12:25)
[2016-09-12] MEDS ORDERED: ONDANSETRON 4 MG/2 ML VIAL ONE (12:25)
[2016-09-12 12:26] LABS: BASOPHIL 0.8 % (0-2.0); EOSINOPHIL 1.3 % (0-4.5); MCH 24.8 pg (25.7-33.7); MCHC 33.1 g/dl (32.0-36.0); MEAN PLT VOLUME 8.2 fl (7.5-11.1); NEUTROPHILS 62.5 % (42.8-82.8); PLATELET COUNT 333 K/MM3 (134-434); RDW 15.2 % (11.6-15.6); WHITE BLOOD COUNT 6.8 K/mm3 (4.0-10.0)
[2016-09-12 12:47] LABS: ALBUMIN 3.2 g/dl (3.4-5.0); ANION GAP 14 (8-16); BILIRUBIN,TOTAL 0.7 mg/dL (0.2-1.0); CALCIUM 9.2 mg/dL (8.5-10.1); CO2 22 mmol/L (21-32); CREATININE 0.9 mg/dL (0.55-1.02); SGPT/ALT 23 U/L (12-78); TOT PROT 7.6 g/dl (6.4-8.2)
[2016-09-12 12:48] LABS: ALK PHOS 87 U/L (45-117)
[2016-09-12 12:59] LABS: URINE APPEARANCE CLEAR; URINE BILIRUBIN NEGATIVE (NEGATIVE); URINE COLOR YELLOW; URINE GLUCOSE (UA) 3+ (NEGATIVE); URINE KETONE 2+ (NEGATIVE); URINE NITRITE NEGATIVE (NEGATIVE); URINE UROBILINOGEN NEGATIVE E.U./dl (0.2-1.0)
[2016-09-12 13:04] LABS: GLUCOSE,RANDOM 338 mg/dL (74-106); URINE BLOOD 3+ (NEGATIVE); URINE LEUK ESTERASE TRACE (NEGATIVE); URINE PROTEIN 1+ (NEGATIVE)
[2016-09-12 13:05] LABS: SGOT/AST 64 U/L (15-37)
[2016-09-12 13:08] LABS: URINE HYALINE CAST 3 /lpf; URINE MUCUS RARE; URINE RBC 57 /hpf (0-3); URINE WBC 10 /hpf (3-5)
[2016-09-12] MEDS ORDERED: CEFTRIAXONE 1 GM in DEXTROSE 5%-WATER - 50 ML IVPB ONE (13:47)
[2016-09-12] MEDS ORDERED: CEFTRIAXONE 50 ML ONE (14:04)
[2016-09-12 14:40] LABS: ACETONE SERUM POSITIVE SMALL 1+ (NEGATIVE)
[2016-09-12] MEDS ORDERED: INSULIN REGULAR HUMAN 100 UNITS/ML *VIAL SQ ONE (14:54)
[2016-09-12] MEDS ORDERED: SODIUM CHLORIDE 2,000 ML IV STA (14:54)
[2016-09-12] MEDS ORDERED: INSULIN REGULAR HUMAN 100 UNITS/ML *VIAL ONE (15:04)
--- NOTE | 2016-09-12 16:10 | EKG ---
Test Reason : Blood Pressure : / mmHG Vent. Rate : 104 BPM Atrial Rate : 104 BPM P-R Int : 112 ms QRS Dur : 084 ms QT Int : 360 ms P-R-T Axes : 056 053 020 degrees QTc Int : 473 ms SINUS TACHYCARDIA POSSIBLE LATERAL INFARCT , AGE UNDETERMINED ABNORMAL ECG WHEN COMPARED WITH ECG OF 20-AUG-2016 12:59, PREMATURE ATRIAL COMPLEXES ARE NO LONGER PRESENT QT HAS LENGTHENED Confirmed by VINAY CAMARA, DARCI ([id number]) on 09/12/2016 4:10:29 PM Referred By: Confirmed By:DARCI MCLEAN MD
[2016-09-12] MEDS ORDERED: ONDANSETRON 4 MG/2 ML VIAL IVPB PRN (16:15)
[2016-09-12] MEDS ORDERED: PANTOPRAZOLE SODIUM 40 MG in SODIUM CHLORIDE 100 ML IVPB SCH (16:30)
[2016-09-12] MEDS ORDERED: INSULIN SLIDING SCALE (NOVOLOG) 1 VIAL SQ SCH (16:30)
--- NOTE | 2016-09-12 16:38 | PN ---
Teaching Attending Note Name of Resident: Justin New ATTENDING PHYSICIAN STATEMENT I saw and evaluated the patient. I reviewed the resident's note and discussed the case with the resident. I agree with the resident's findings and plan as documented. SUBJECTIVE: CC: N/V HPI : 46 y/o lady with h/o HTN, IDDM, h/o DKA x2 , UTI with E coli bacteremia in 2012, and recent admission in 08/24 for DKA . AFter her dc form the hospital , the patient continued to have N/V about 10 times a day. emesis included yellow/white/sometimes black/no red blood. has constant 8-10 LUQ and epigastric abd pain . not related to food intake. not relieved by anything. no radiation. has no dysuria , no urinary frequency. has her period for 1 months. changes 4 pads/day. has h/o irregular periods that last for 2.5 weeks . denies any fever or chills. has no CP or SOB. HAs not been able to take any medication due to her illness. 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 She reports sugars of 350s at home . of note she denies marijuana use , NSAIDs use or other drugs / alcohol OBJECTIVE: NAd , AAOx3. comfortable in bed HEENT: MMM, no LAP in neck. EOMI, no facial droop. nl oropharynx. CV: RRR. no JVD Lungs : CTAB ext : no edema. no fungal infection among toes , no ulcers . Abd :Soft, ND , TTP in All quadrants eva in LUQ and epigastric area , no rebound tenderness or guarding, nl BS Neuro : symmetric face , no facial droop , EOMI, round equal reactive pupils . strength 5/5 in upper and lwoer ext proximally and distally. sensation to light touch NL. reflexes 2+ knee jerk and biceps b/l ASSESSMENT AND PLAN: 46 y/o lady with h/o HTN, IDDM, h/o DKA x2 , UTI with E coli bacteremia in 2012 , and recent admission in 08/24 for DKA . She presented with persistent nausea and vomiting and abd pain 1- N/V/Abd pain: SX are most consistent with gastroparesis picture especially with poorly controlled DM with A1c of 12.5 last admission. Of course , gastritis is in DDx. PUD in DDX . - IVF - zofran for nausea. - avoid NSAIDS . give small amount of morphine fro pain control pendinf improvement in po intake - QTC is 470 try to avoid reglan as prokinetic - PPI - HP stool Ag. - stool OB. - if sx don't improve , or worsen, then will consult GI, otherwise , will have her follow with GI as out pt for EGD - full liquid diabetic diet 2- Uncontrolled DM with hyperglycemia: no evidence of DKA, as her Bicarb is nL and has no AG despite the ketones in urine and blood . - SSI TID AC - start 5 units of levemir at HS - no need t repeat A1c 3- Mild hyponatremia : due to decreased po intake . monitor with IVhydration 4- Irregular vaginal bleeding . probably francisca-menopausal irregularity. of course endometrial cancer /fibroids can't be r/o and can follow with [facility] as out pt 5- asymptomatic pyuria : no sx of UTI. urine cx was sent . hold off any treatment pending cx results. 6- DVT px : SCDS due to vaginal bleeding
--- NOTE | 2016-09-12 16:41 | HP ---
CHIEF COMPLAINT: Abdominal pain PCP: HISTORY OF PRESENT ILLNESS: 46 yo F with sigificant PMhx of DM,HTN, HLD presents with one month history of worsening abdominal pain. She describes intermittent sharp 10/10 abdominal pain that is localized to epigastic area, which can generalize. Pain is accompanied by nausea, chills and vomiting. Vomiting makes the pain worse and is of varying color and consistency( thick/thin, yellow/clear/black.) She states that it is not blood and "doesnt taste like blood". She has tried melody seltzer and omeprazole with minimal relief. Denies fever, recent illness, or urinary symptoms. She was seen at [facility] for DKA in August 2016 and discharged on insulin regimen. She states that she did not feel well enough to go get prescription filled. She has been in her house getting weaker and weaker to the point where she could not get out of bed today and brought by a friend who physically picked her up and carlos her to ER. She endorses very poor oral intake and has had nothing but water for past week or so , but has continued to take metformin but vomits every time she takes it. Denies CP, SOB, palpitation or diaphoresis. ER course was notable for: (1)Given 10 units of insulin for BG 338 (2)Given 2L of NS (3)EKG shows no changes from previous admission. (4) hyponatremia seen on labs. Na+=130 Recent Travel:no PAST MEDICAL HISTORY: DM,HTN, HLD PAST SURGICAL HISTORY: Social History: Smoking:denies Alcohol:denies Drugs: denies Family History: Mother - alive(Hypothyroid) ; Father - (DM, cirrhosis) of complications of cirrhosis. Allergies Penicillins Allergy (Verified 09/12/16 11:23) HOME MEDICATIONS: Home Medications Medication Instructions Recorded Enalapril Maleate [Vasotec -] 10 mg PO DAILY 08/20/16 Insulin (Levemir) [Levemir Vial] 10 units SQ HS #1 ml 08/26/16 Glipizide [Glipizide ER] 10 mg PO DAILY 09/12/16 REVIEW OF SYSTEMS CONSTITUTIONAL: chills,generalized weakness,loss of appetite Absent: fever, , diaphoresis, , malaise, , weight change HEENT: Absent: rhinorrhea, nasal congestion, throat pain, throat swelling, difficulty swallowing, mouth swelling, ear pain, eye pain, visual changes CARDIOVASCULAR: Absent: chest pain, syncope, palpitations, irregular heart rate, lightheadedness , peripheral edema RESPIRATORY: Absent: cough, shortness of breath, dyspnea with exertion, orthopnea, wheezing, stridor, hemoptysis GASTROINTESTINAL:abdominal pain, vomiting Absent: abdominal distension, nausea,, diarrhea, constipation, melena, hematochezia GENITOURINARY: Vaginal bleeding for past month Absent: dysuria, frequency, urgency, hesitancy, hematuria, flank pain, genital pain MUSCULOSKELETAL: Absent: myalgia, arthralgia, joint swelling, back pain, neck pain SKIN: Absent: rash, itching, pallor HEMATOLOGIC/IMMUNOLOGIC: Absent: easy bleeding, easy bruising, lymphadenopathy, frequent infections ENDOCRINE: Absent: unexplained weight gain, unexplained weight loss, heat intolerance, cold intolerance NEUROLOGIC: Absent: headache, focal weakness or paresthesias, dizziness, unsteady gait, seizure, mental status changes, bladder or bowel incontinence PSYCHIATRIC: Absent: anxiety, depression, suicidal or homicidal ideation, hallucinations. PHYSICAL EXAMINATION GENERAL: Awake, alert, and fully oriented, in no acute distress. HEAD: Normal with no signs of trauma. EYES: Pupils equal, round and reactive to light, extraocular movements intact, sclera anicteric, conjunctiva clear. No lid lag. EARS, NOSE, THROAT: Dry mucous membranes. NECK: Normal range of motion, supple without lymphadenopathy, JVD, or masses. LUNGS: Breath sounds equal, clear to auscultation bilaterally. No wheezes, and no crackles. No accessory muscle use. HEART: Regular rate and rhythm, normal S1 and S2 without murmur, rub or gallop. ABDOMEN: Soft,Epigastric tenderness, not distended, normoactive bowel sounds, minimal guarding, no rebound, no masses. No hepatomegaly or splenomegaly. MUSCULOSKELETAL: Normal range of motion at all joints. No bony deformities or tenderness. No CVA tenderness. UPPER EXTREMITIES: 2+ pulses, warm, well-perfused. No cyanosis. No clubbing. No peripheral edema. LOWER EXTREMITIES: 2+ pulses, warm, well-perfused. No calf tenderness. No peripheral edema. NEUROLOGICAL: Cranial nerves II-XII intact. Normal speech. gait not observed. PSYCHIATRIC: Cooperative. Good eye contact. Appropriate mood and affect. SKIN: Warm, dry, normal turgor, no rashes or lesions noted, normal capillary refill. Laboratory Results - last 24 hr 09/12/16 15:12 POC Glucometer [id number] ASSESSMENT/PLAN: 46 yo F with significant PMHx of HTn, HLD, and DM admitted to med/surg for intractable abdominal pain and hyperglycemia. Problem List - Problem (1) Hyperglycemia Assessment/Plan: * ADA liquid diet * This is not DKA because no anion gap will treat as hyperglycemia * NISS AC * Lantus 5 U HS * BGM ACHS * diabetic education (2) Intractable abdominal pain Assessment/Plan: * Most like gastroperesis vs. gasritis/PUD * Morphine 2mg IV Q6 * Zofran for nausea * Protonix 40mg IV BID (3) Nausea and vomiting (4) DVT prophylaxis Assessment/Plan: * Will hold AC for now given uterine bleeding * SCD bilat. (5) Pyuria Assessment/Plan: * asymptomatic * will hold off Abx for now * Cultures sent ; if + will treat Visit type - Emergency Visit Emergency Visit: Yes ED Registration Date: 09/12/16 Care time: The patient presented to the Emergency Department on the above date and was hospitalized for further evaluation of their emergent condition. - New Patient This patient is new to me today: Yes Date on this admission: 09/12/16 - Critical Care Critical Care patient: No
[2016-09-12] MEDS ORDERED: PT OWN MED DRAWER 7, Y5N ONE (18:19)
[2016-09-12] MEDS: PANTOPRAZOLE SODIUM 40 MG/100 ML PRE-DOCKED IVPB SCH ×2 (18:21→22:18)
[2016-09-12] MEDS ORDERED: INSULIN DETEMIR 100 UNITS/ML MDV SQ SCH (22:00)
[2016-09-12] MEDS: morphine CARPU-JECT 2 MG/1 ML DISP.SYRIN IVPUSH PRN (22:18)
[2016-09-13] MEDS ORDERED: INSULIN DETEMIR 100 UNITS/ML MDV SQ ONE (05:57)
[2016-09-13] MEDS: INSULIN SLIDING SCALE (NOVOLOG) 1 VIAL SQ SCH ×3 (06:10→18:04)
[2016-09-13] MEDS: morphine CARPU-JECT 2 MG/1 ML DISP.SYRIN IVPUSH PRN ×2 (07:54→13:11)
[2016-09-13 07:58] LABS: BASOPHIL 0.8 % (0-2.0); EOSINOPHIL 3.3 % (0-4.5); MCH 24.7 pg (25.7-33.7); MCHC 33.2 g/dl (32.0-36.0); MEAN CELL VOLUME 74.4 fl (80-96); MEAN PLT VOLUME 8.6 fl (7.5-11.1); NEUTROPHILS 43.8 % (42.8-82.8); PLATELET COUNT 282 K/MM3 (134-434); RDW 15.4 % (11.6-15.6)
[2016-09-13 08:21] LABS: ALK PHOS 77 U/L (45-117); ANION GAP 11 (8-16); BILIRUBIN,TOTAL 0.4 mg/dL (0.2-1.0); CALCIUM 8.2 mg/dL (8.5-10.1); CO2 24 mmol/L (21-32); CREATININE 0.7 mg/dL (0.55-1.02); GLUCOSE,RANDOM 146 mg/dL (74-106); MAGNESIUM 1.7 mg/dL (1.8-2.4); SGOT/AST 14 U/L (15-37); SGPT/ALT 17 U/L (12-78); TOT PROT 6.5 g/dl (6.4-8.2)
[2016-09-13] MEDS: PANTOPRAZOLE SODIUM 40 MG/100 ML PRE-DOCKED IVPB SCH (09:02)
[2016-09-13 15:07] VITALS: BP 121/78; PULSE 92; TEMP 99.2
[2016-09-13] MEDS ORDERED: MAGNESIUM OXIDE 400 MG TABLET (FP) PO ONE (15:34)
[2016-09-13] MEDS ORDERED: POTASSIUM CHLORIDE TABS 20 MEQ TABLET.ER (FP) PO ONE (15:34)
--- NOTE | 2016-09-13 16:17 | DS ---
Physical Examination Vital Signs: Vital Signs Temperature 99.2 F 09/13/16 15:05 Pulse Rate 92 H 09/13/16 15:05 Respiratory Rate 20 09/13/16 15:05 Blood Pressure 121/78 09/13/16 15:05 O2 Sat by Pulse Oximetry (%) 98 09/13/16 09:00 Findings/Remarks: pt looks comfortable, denies any vomiting today , ate soft diet fro breakfast and lunch . abd pain has improved NAd , AAOx3. comfortable in the chair HEENT: MMM, no LAP in neck. EOMI, no facial droop. nl oropharynx. CV: RRR. no JVD Lungs : CTAB ext : no edema. Abd :Soft, ND , minimal TTP in epigastric area , no rebound tenderness or guarding Labs: CBC, BMP 09/13/16 06:00 09/13/16 06:00 Discharge Summary Reason For Visit: NAUSEA AND VOMITING; HYPERGYLCEMIA; UTI Current Active Problems DVT prophylaxis (Acute) Hyperglycemia (Acute) Intractable abdominal pain (Acute) Nausea and vomiting (Acute) Pyuria (Acute) Hospital Course: 46 y/o lady with h/o HTN, IDDM, h/o DKA x2 , UTI with E coli bacteremia in 2012 , and recent admission in 08/24 for DKA . She presented with persistent nausea and vomiting and abd pain . on admission , her labs were unremarkable, except fro mild hyponatremia and GLC > 300 with no AG and nl Bicarb. she was not felt to be in DKA , despite acetones i n urine and blood. Her GI sx were attributed ot possible gastroparesis eva with poorly controlled Dm ( A1c of 12.5 ) . of course PUD and gastritis were in DDx. she was given IVF , nausea medications and was advised to follow with Dr. Rodgers for EGD adn gastric emptying study. she was sent on zofran and pPI and dno pain meds . she did well with soft diet here . fro her DM, she was not taking any medications at [facility] although she was discharged on insulin last admissin given her hx of DKA recently. she was given SQ insulinhere and d/c on SSI and levemir and to follow with Dr. Black . she has h/o of or regular menses , and has menstrual bleeding for 1 month, with stable HB. she was advised to follow with [facility]. she has asymptomatic pyuria with neg Urine cx . She was not treated . Dispo : HOme f.u : GI, PCP, Endocrine , and [facility] condition : improved time spent 30 min Condition: Improved - Instructions Diet, Activity, Other Instructions: - please follow with your primary care doctor - Take diabetic diet, in small portions as tolerated. - take insulin ( Levemir ) 10 units every evening - take insulin ( novolog ) three times with meals depending on a sliding scale. if you do not eat , do not take a sliding scale. - Please follow with Dr. Black , the diabetes doctor. it is important to control your diabetes - you can follow with Dr. Umana , as a primary care dotor if you don't want to go back to [facility] - take all your medications as prescribed. - Do not take glipizide any more . you are on insulin now - check your sugar three times before meals and at bed time . report to your doctor if you develop hypoglycemis ( Glucose < 90 or high numbers > 300 ) - you need to see dr. Rodgers fro an upper GI scope . and for work up for gastroparesis Referrals: Vargas Rodgers MD [Staff Physician] - 1 Week Lloyd Umana MD [Staff Physician] - Ildefonso Marin MD [Staff Physician] - 2 Weeks Disposition: HOME - Home Medications Comprehensive Discharge Medication List: Ambulatory Orders Enalapril Maleate [Vasotec -] 10 mg PO DAILY #30 tab 09/13/16 Insulin (Levemir) [Levemir Flexpen -] 10 units SQ HS #1 pen 09/13/16 Insulin Aspart [Novolog Flexpen] See Protocol SQ AC #1 insuln.pen 09/13/16 Miscellaneous Medical Supply [Outpatient Order] 1 each ASDIR #1 misc Ondansetron HCl [Zofran] 4 mg PO BIDAC #10 tablet 09/13/16 Pantoprazole Sodium [Protonix] 40 mg PO DAILY #30 tablet. 09/13/16 Kevin Needle, Diabetic [Insulin Pen Needle] 1 each ASDIR #100 dis.needle This patient is new to me today: No Emergency Visit: Yes ED Registration Date: 09/12/16 Care time: The patient presented to the Emergency Department on the above date and was hospitalized for further evaluation of their emergent condition. Critical Care patient: No - Discharge Referral Referred to [facility] Yes Physician Referral: Lloyd Umana MD (Int Med)
== END 2016-09-13 17:45 | disposition home or self-care (01) | DRG 48 ==
LOC: JER 11:11 → JERBED 15:00 → J7W 18:11
PROVIDERS: ADMIT Internal Medicine; ATTEND Internal Medicine
DX: E11.43 Type 2 diabetes mellitus with diabetic autonomic (poly)neuropathy (principal); E11.65 Type 2 diabetes mellitus with hyperglycemia; E87.1 Hypo-osmolality and hyponatremia; K31.84 Gastroparesis; I10 Essential (primary) hypertension; E78.5 Hyperlipidemia, unspecified; Z79.4 Long term (current) use of insulin; Z88.0 Allergy status to penicillin; N93.9 Abnormal uterine and vaginal bleeding, unspecified
CPT/HCPCS: 36415; 80053; 81003; 81015; 82009; 83690; 83735; 84100; 84703; 85025; 87086; 93005; 93010; 99285-25

== ENCOUNTER 2016-09-18 13:38 | Emergency (ER) | payer SELFPAY ==
[2016-09-18 13:54] VITALS: BMI 24.7
[2016-09-18] MEDS ORDERED: SODIUM CHLORIDE 1,000 ML IV ONE ×2 (15:18→17:43)
--- NOTE | 2016-09-18 15:43 | PDOC ---
History of Present Illness - General History Source: Patient Exam Limitations: No Limitations - History of Present Illness Initial Comments: CHIEF COMPLAINT: 46 y/o afebrile female with PMH DM c/o vomiting and abd pain x 1 month. HISTORY OF PRESENT ILLNESS: The patient states she's had a 30lb weight loss over the past month and she was not trying to lose weight. She states she cannot eat or drink because she vomits. Her doctor switched her to insulin because she cannot tolerate her oral medications. She was here last week for same issue, had IV antiemetics which worked but the PO antiemetics didn't work at home. The patient denies fever, cough, CP, SOB, back pain, hematuria, dysuria , diarrhea. She does admit she's had vaginal bleeding for 1 month as well. Vital signs on arrival are notable for pulse of 113. REVIEW OF SYSTEMS: GENERAL/CONSTITUTIONAL: No fever/chills. No weakness. +unintentional 30 pound weight loss HEAD, EYES, EARS, NOSE AND THROAT: No change in vision. No ear pain or discharge. No sore throat. CARDIOVASCULAR: No chest pain or shortness of breath. RESPIRATORY: No cough, wheezing, or hemoptysis. GASTROINTESTINAL: +vomiting and abd pain. No diarrhea or constipation. GENITOURINARY: No dysuria, frequency, or change in urination. +vaginal bleeding x 1 month. MUSCULOSKELETAL: No joint or muscle swelling or pain. No neck or back pain. SKIN: No rash or easy bruising. NEUROLOGIC: No headache, vertigo, loss of consciousness, or loss of sensation. PHYSICAL EXAM: GENERAL: The patient is awake, alert, and fully oriented, in no acute distress. She is ambulatory and well appearing. HEAD: Normal with no signs of trauma. ENT: Pupils equal, round and reactive to light, extraocular movements intact, sclera anicteric, conjunctiva clear. Neck supple. Mucous membranes dry. LUNGS: Clear to auscultation bilaterally. Normal excursion. No respiratory distress or use of accessory muscles. CV: RRR, S1/S2, no MRG. Cap refill < 2 sec. ABDOMEN: Soft, non-distended, very TTP of entire lower abdomen with passive guarding. No rebound or rigidity. No masses appreciated. VAGINAL: DEFERRED EXTREMITIES: Normal range of motion, no edema. NEUROLOGICAL: Normal speech, normal gait. CN II-XII grossly intact. PSYCH: Normal mood, normal affect. SKIN: Warm, dry, normal turgor, no rashes or lesions noted. <Jocelyn Johnson - Last Filed: 09/20/16 08:55> <Eran Lucero - Last Filed: 09/21/16 08:13> - General Chief Complaint: Pain, Acute Stated Complaint: ABD PAIN Time Seen by Provider: 09/18/16 15:02 Past History - Past Medical History Anemia: No Asthma: No Cancer: No Cardiac Disorders: No CVA: No COPD: No CHF: No Dementia: No Diabetes: Yes GI Disorders: No Disorders: No HTN: Yes Hypercholesterolemia: Yes Liver Disease: No Seizures: No Thyroid Disease: No - Surgical History Abdominal Surgery: (TUBAL LIGATION) Appendectomy: No Cardiac Surgery: No Cholecystectomy: Yes Lung Surgery: No Neurologic Surgery: No Orthopedic Surgery: No - Psycho/Social/Smoking Cessation Hx Anxiety: No Suicidal Ideation: No Smoking Status: No Smoking History: Never smoked Have you smoked in the past 12 months: No Number of Cigarettes Smoked Daily: 0 Hx Alcohol Use: No Drug/Substance Use Hx: No Substance Use Type: None Hx Substance Use Treatment: No <Jocelyn Johnson - Last Filed: 09/20/16 08:55> <Eran Lucero - Last Filed: 09/21/16 08:13> - Past Medical History Allergies/Adverse Reactions: Allergies Allergy/AdvReac Type Severity Reaction Status Date / Time Penicillins Allergy Verified 09/18/16 13:49 Home Medications: Ambulatory Orders Enalapril Maleate [Vasotec -] 10 mg PO DAILY #30 tab 09/13/16 Pantoprazole Sodium [Protonix] 40 mg PO DAILY #30 tablet. 09/13/16 Insulin (Levemir) [Levemir Flexpen -] 0 units SQ ASDIR 09/18/16 Insulin Glargine,Hum.rec.anlog [Lantus Solostar PEN (NF)] 0 units SQ ASDIR 09/18 Ondansetron [Zofran Odt -] 4 mg SL BID #14 od.tablet 09/19/16 *Physical Exam - Vital Signs Last Vital Signs Temp Pulse Resp BP Pulse Ox 98.9 F 113 H 19 112/79 99 09/18/16 13:49 09/18/16 13:49 09/18/16 13:49 09/18/16 13:49 09/18/16 13:49 <Jocelyn Johnson - Last Filed: 09/20/16 08:55> - Vital Signs Last Vital Signs Temp Pulse Resp BP Pulse Ox 97.1 F L 76 19 130/75 98 09/19/16 06:18 09/19/16 06:18 09/19/16 06:18 09/19/16 06:18 09/19/16 06:18 <Eran Lucero - Last Filed: 09/21/16 08:13> ED Treatment Course - LABORATORY CBC & Chemistry Diagram: 09/18/16 15:45 09/19/16 05:02 <Jocelyn Johnson - Last Filed: 09/20/16 08:55> - LABORATORY CBC & Chemistry Diagram: 09/18/16 15:45 09/19/16 05:02 - ADDITIONAL ORDERS Additional order review: 09/18/16 15:45 RBC 5.04 MCV 74.9 L MCHC 32.8 RDW 16.0 H MPV 7.8 Neutrophils % 55.5 D Lymphocytes % 32.3 D Monocytes % 9.7 Eosinophils % 1.2 Basophils % 1.3 - Medications Given in the ED: ED Medications Discontinued Medications Generic Name Dose Route Start Last Admin Trade Name Gila PRN Reason Stop Dose Admin Sodium Chloride 1,000 mls @ 1,000 mls/hr 09/18/16 15:18 09/18/16 15:55 Normal Saline - IV 09/18/16 16:17 1,000 mls/hr ASDIR ONE Administration Sodium Chloride 1,000 mls @ 250 mls/hr 09/18/16 17:43 09/18/16 17:43 Normal Saline - IV 09/18/16 21:42 250 mls/hr ASDIR ONE Administration Levofloxacin 100 mls @ 100 mls/hr 09/18/16 20:35 09/18/16 22:17 Levaquin 500 Mg Premixed Ivpb - IVPB 09/18/16 21:34 100 mls/hr ONCE ONE Administration Potassium Chloride 100 mls @ 100 mls/hr 09/18/16 21:45 09/19/16 01:23 Potassium Chloride 10 Meq Premix Ivpb - IVPB 09/18/16 23:44 100 mls/hr Q60M ROCÍO Administration Magnesium Sulfate 2 gm 09/18/16 20:34 09/18/16 21:45 Magnesium Sulfate IVPB 09/18/16 20:35 2 gm ONCE ONE Administration Metoclopramide HCl 10 mg 09/18/16 16:59 09/18/16 17:01 Reglan Injection - IVPB 09/18/16 17:00 10 mg ONCE ONE Administration Ondansetron HCl 4 mg 09/18/16 15:44 09/18/16 16:03 Zofran Injection IVPUSH 09/18/16 15:45 4 mg ONCE ONE Administration Potassium Chloride 40 meq 09/18/16 16:39 09/18/16 17:43 K-Dur - PO 09/18/16 16:40 40 meq ONCE ONE Administration <Eran Lucero - Last Filed: 09/21/16 08:13> Medical Decision Making - Medical Decision Making A/P: 46 y/o female with vomiting x 1 month with 30lb weight loss. Also 1 month of vaginal bleeding. Plan is as follows: 1. Labs 2. IV fluids 3. IV zofran 4. CT scan abd/pelvis 5. Transvaginal ultrasound Transvaginal Ultrasound IMPRESSION: Fibroid uterus. I am signing this patient out to my colleague: EMERY Bishop In brief, this patient is being seen in the ED for a chief complaint of: vomiting x 1 month with 30lb weight loss I have completed the initial assessment interview note and have ordered: labs, transvaginal ultrasound, antiemetics, CT scan abd/pelvis I have reviewed the following results: labs, urine, ultrasound Pending results are: Acetone, CT scan abd/pelvis Plan for disposition is as follows: Pending <Jocelyn Johnson - Last Filed: 09/20/16 08:55> - Medical Decision Making 09/21/16 08:12 The patient was seen and evaluated in conjunction with EMERY Johnson under my direct supervision, ancillary studies were reviewed. I agree with the plan as outlined by EMERY Johnson . pt noted +ketones, however not acidodic and no signs of anion gap.suspect ketonuria/ketonemia is secondary to starvation <Eran Lucero - Last Filed: 09/21/16 08:13> *DC/Admit/Observation/Transfer <Jocelyn Johnson - Last Filed: 09/20/16 08:55> <Nic,Eran - Last Filed: 09/21/16 08:13> Diagnosis at time of Disposition: Hypokalemia, Weight loss, non-intentional, Poorly controlled diabetes mellitus , Colitis - Discharge Dispostion Disposition: HOME Condition at time of disposition: Stable - Prescriptions Prescriptions: Ondansetron [Zofran Odt -] 4 mg SL BID #14 od.tablet - Referrals Referrals: Roberto Carlos Gongora MD [Staff Physician] - - Patient Instructions Printed Discharge Instructions: DI for Colitis
[2016-09-18] MEDS ORDERED: ONDANSETRON 4 MG/2 ML VIAL IVPUSH ONE (15:44)
[2016-09-18 16:00] LABS: BASOPHIL 1.3 % (0-2.0); EOSINOPHIL 1.2 % (0-4.5); MCH 24.6 pg (25.7-33.7); MCHC 32.8 g/dl (32.0-36.0); MEAN CELL VOLUME 74.9 fl (80-96); MEAN PLT VOLUME 7.8 fl (7.5-11.1); NEUTROPHILS 55.5 % (42.8-82.8); PLATELET COUNT 359 K/MM3 (134-434); WHITE BLOOD COUNT 7.8 K/mm3 (4.0-10.0)
[2016-09-18] MEDS ORDERED: ONDANSETRON 4 MG/2 ML VIAL ONE (16:02)
[2016-09-18 16:03] LABS: URINE APPEARANCE SLCLOUDY; URINE BILIRUBIN NEGATIVE (NEGATIVE); URINE BLOOD NEGATIVE (NEGATIVE); URINE COLOR YELLOW; URINE GLUCOSE (UA) 2+ (NEGATIVE); URINE KETONE 2+ (NEGATIVE); URINE NITRITE NEGATIVE (NEGATIVE); URINE UROBILINOGEN NEGATIVE E.U./dl (0.2-1.0)
[2016-09-18 16:26] LABS: ALBUMIN 3.6 g/dl (3.4-5.0); ANION GAP 12 (8-16); CALCIUM 9.1 mg/dL (8.5-10.1); CO2 30 mmol/L (21-32); CREATININE 0.8 mg/dL (0.55-1.02); GLUCOSE,RANDOM 231 mg/dL (74-106); SGOT/AST 11 U/L (15-37); SGPT/ALT 26 U/L (12-78)
[2016-09-18 16:29] LABS: ALK PHOS 86 U/L (45-117); BILIRUBIN,TOTAL 0.6 mg/dL (0.2-1.0); TOT PROT 7.7 g/dl (6.4-8.2)
[2016-09-18] MEDS ORDERED: POTASSIUM CHLORIDE TABS 20 MEQ TABLET.ER (FP) PO ONE ×2 (16:39→16:44)
[2016-09-18 16:51] LABS: URINE LEUK ESTERASE 2+ (NEGATIVE); URINE PROTEIN 2+ (NEGATIVE)
[2016-09-18] MEDS ORDERED: METOCLOPRAMIDE HCL INJECTION 10 MG/2 ML VIAL IVPB ONE (16:59)
[2016-09-18] MEDS ORDERED: METOCLOPRAMIDE HCL INJECTION 10 MG/2 ML VIAL ONE (16:59)
[2016-09-18 17:03] LABS: VENOUS BLOOD GAS HCO3 25.5 meq/L (19-25); VENOUS PH 7.5 (7.32-7.42)
[2016-09-18 17:30] LABS: URINE MUCUS MANY; URINE RBC 8 /hpf (0-3); URINE WBC 39 /hpf (3-5)
[2016-09-18 19:10] LABS: ACETONE SERUM POSITIVE MODERATE 2+ (NEGATIVE)
[2016-09-18] MEDS ORDERED: MAGNESIUM SULF 50% (8.12 MEQ/2 ML-1 GM VIAL) IVPB ONE (20:34)
[2016-09-18] MEDS ORDERED: LEVOFLOXACIN 500 MG IVPB 100 ML IVPB ONE ×2 (20:35→21:27)
--- NOTE | 2016-09-18 20:36 | PDOC ---
History of Present Illness - History of Present Illness Initial Comments: 09/19/16 05:43 46-year-old female presents to the emergency department complaining of anorexia 1 month with a 30 pound weight loss. patient reports s been experiencing left- sidedabdominal discomfort 3 days. Pain is described as 6/10 dull nonradiating intermittent discomfort. Patient denies headaches, fever/chills, nausea/vomiting , neck pains, back pains, chest pain, shortness of breath, back pains, extremity numbness or tingling sensation, urinary symptoms. <Minnie Bishop - Last Filed: 10/03/16 04:58> <Eran Lucero - Last Filed: 10/06/16 08:49> - General Chief Complaint: Pain, Acute Stated Complaint: ABD PAIN Time Seen by Provider: 09/18/16 15:02 Past History - Past Medical History Anemia: No Asthma: No Cancer: No Cardiac Disorders: No CVA: No COPD: No CHF: No Dementia: No Diabetes: Yes GI Disorders: No Disorders: No HTN: Yes Hypercholesterolemia: Yes Liver Disease: No Seizures: No Thyroid Disease: No - Surgical History Abdominal Surgery: (TUBAL LIGATION) Appendectomy: No Cardiac Surgery: No Cholecystectomy: Yes Lung Surgery: No Neurologic Surgery: No Orthopedic Surgery: No - Psycho/Social/Smoking Cessation Hx Anxiety: No Suicidal Ideation: No Smoking Status: No Smoking History: Never smoked Have you smoked in the past 12 months: No Number of Cigarettes Smoked Daily: 0 Hx Alcohol Use: No Drug/Substance Use Hx: No Substance Use Type: None Hx Substance Use Treatment: No <Minnie Bishop - Last Filed: 10/03/16 04:58> <Eran Lucero - Last Filed: 10/06/16 08:49> - Past Medical History Allergies/Adverse Reactions: Allergies Allergy/AdvReac Type Severity Reaction Status Date / Time Penicillins Allergy Verified 09/18/16 13:49 Home Medications: Ambulatory Orders Enalapril Maleate [Vasotec -] 10 mg PO DAILY #30 tab 09/13/16 Pantoprazole Sodium [Protonix] 40 mg PO DAILY #30 tablet. 09/13/16 Insulin (Levemir) [Levemir Flexpen -] 0 units SQ ASDIR 09/18/16 Insulin Glargine,Hum.rec.anlog [Lantus Solostar PEN (NF)] 0 units SQ ASDIR 09/18 Ondansetron [Zofran Odt -] 4 mg SL BID #14 od.tablet 09/19/16 Review of Systems - Review of Systems Able to Perform ROS?: Yes Comments:: 10/03/16 04:58 CONSTITUTIONAL: Absent: fever, chills, diaphoresis, generalized weakness, malaise, loss of appetite HEENT: Absent: rhinorrhea, nasal congestion, throat pain, throat swelling, difficulty swallowing, mouth swelling, ear pain, eye pain, visual Changes CARDIOVASCULAR: Absent: chest pain, loss of consciousness, palpitations, irregular heart rate, peripheral edema RESPIRATORY: Absent: cough, shortness of breath, dyspnea with exertion, orthopnea, wheezing, stridor, hemoptysis GASTROINTESTINAL: +Left sided abdominal pain Absent: abdominal distension, nausea, vomiting, diarrhea, constipation, melena, hematochezia GENITOURINARY: Absent: dysuria, frequency, urgency, hesitancy, hematuria, flank pain, genital pain MUSCULOSKELETAL: Absent: myalgia, arthralgia, joint swelling SKIN: Absent: rash, itching, pallor HEMATOLOGIC/IMMUNOLOGIC: Absent: easy bleeding, easy bruising, lymphadenopathy, frequent infections ENDOCRINE: Absent: unexplained weight gain, unexplained weight loss, heat intolerance, cold intolerance NEUROLOGIC: Absent: headache, focal weakness or paresthesias, dizziness, unsteady gait, seizure, mental status changes, bladder or bowel incontinence PSYCHIATRIC: +anxiety Absent: depression, suicidal or homicidal ideation, hallucinations. Is the patient limited Bahraini proficient: No <Minnie Bishop - Last Filed: 10/03/16 04:58> *Physical Exam - Vital Signs Last Vital Signs Temp Pulse Resp BP Pulse Ox 98.9 F 88 16 159/91 97 09/18/16 13:49 09/18/16 17:58 09/18/16 17:58 09/18/16 17:58 09/18/16 17:58 - Physical Exam Comments: 10/03/16 04:58 GENERAL: Well developed, well nourished. Awake and alert. No acute distress. HEENT: Normocephalic, atraumatic. PERRLA, EOMI. No conjunctival pallor. Sclera are non- icteric. Moist mucous membranes. Oropharynx is clear. NECK: Supple. Full ROM. No JVD. Carotid pulses 2+ and symmetric, without bruits. No thyromegaly. No lymphadenopathy. CARDIOVASCULAR: Regular rate and rhythm. No murmurs, rubs, or gallops. Distal pulses are 2+ and symmetric. PULMONARY: No evidence of respiratory distress. Lungs clear to auscultation bilaterally. No wheezing, rales or rhonchi. ABDOMINAL: Soft. Non-tender. Non-distended. No rebound or guarding. No organomegaly. Normoactive bowel sounds. MUSCULOSKELETAL Normal range of motion at all joints. No bony deformities or tenderness. No CVA tenderness. EXTREMITIES: No cyanosis. No clubbing. No edema. No calf tenderness. SKIN: Warm and dry. Normal capillary refill. No rashes. No jaundice. NEUROLOGICAL: Alert, awake, appropriate. Cranial nerves 2-12 intact. No deficits to light touch and temperature in face, upper extremities and lower extremities. No motor deficits in the in face, upper extremities and lower extremities. Normoreflexic in the upper and lower extremities. Normal speech. Toes are down- going bilaterally. Gait is normal without ataxia. PSYCHIATRIC: Cooperative. Good eye contact. Appropriate mood and affect. <Minnie Bishop - Last Filed: 10/03/16 04:58> - Vital Signs Last Vital Signs Temp Pulse Resp BP Pulse Ox 97.1 F L 76 19 130/75 98 09/19/16 06:18 09/19/16 06:18 09/19/16 06:18 09/19/16 06:18 09/19/16 06:18 <Eran Lucero - Last Filed: 10/06/16 08:49> ED Treatment Course - LABORATORY CBC & Chemistry Diagram: 09/18/16 15:45 09/19/16 05:02 - ADDITIONAL ORDERS Additional order review: Laboratory Results 09/18/16 09/18/16 09/18/16 18:25 16:50 15:45 VBG pH 7.50 H D POC VBG pCO2 32.9 L POC VBG pO2 60.5 H D Mixed VBG HCO3 25.5 H Sodium 133 L Potassium 3.1 L Chloride 91 L D Carbon Dioxide 30 D Anion Gap 12 BUN 15 D Creatinine 0.8 Creat Clearance w eGFR > 60 Random Glucose 231 H D Calcium 9.1 Total Bilirubin 0.6 D AST 11 L D ALT 26 D Alkaline Phosphatase 86 Total Protein 7.7 Albumin 3.6 Lipase 337 Urine Color Urine Appearance Urine pH Ur Specific [place] Urine Protein Urine Glucose (UA) Urine Ketones Urine Blood Urine Nitrite Urine Bilirubin Urine Urobilinogen Ur Leukocyte Esterase Urine RBC Urine WBC Ur Epithelial Cells Urine Mucus Urine HCG, Qual Negative Acetone, Qual Positive moderate 2+ H 09/18/16 15:45 VBG pH POC VBG pCO2 POC VBG pO2 Mixed VBG HCO3 Sodium Potassium Chloride Carbon Dioxide Anion Gap BUN Creatinine Creat Clearance w eGFR Random Glucose Calcium Total Bilirubin AST ALT Alkaline Phosphatase Total Protein Albumin Lipase Urine Color Yellow Urine Appearance Slcloudy Urine pH 6.0 Ur Specific [place] 1.025 Urine Protein 2+ H Urine Glucose (UA) 2+ H Urine Ketones 2+ H Urine Blood Negative Urine Nitrite Negative Urine Bilirubin Negative Urine Urobilinogen Negative Ur Leukocyte Esterase 2+ H D Urine RBC 8 Urine WBC 39 Ur Epithelial Cells Many Urine Mucus Many Urine HCG, Qual Acetone, Qual 09/18/16 15:45 RBC 5.04 MCV 74.9 L MCHC 32.8 RDW 16.0 H MPV 7.8 Neutrophils % 55.5 D Lymphocytes % 32.3 D Monocytes % 9.7 Eosinophils % 1.2 Basophils % 1.3 - Medications Given in the ED: ED Medications Discontinued Medications Generic Name Dose Route Start Last Admin Trade Name Martinq PRN Reason Stop Dose Admin Sodium Chloride 1,000 mls @ 1,000 mls/hr 09/18/16 15:18 09/18/16 15:55 Normal Saline - IV 09/18/16 16:17 1,000 mls/hr ASDIR ONE Administration Metoclopramide HCl 10 mg 09/18/16 16:59 09/18/16 17:01 Reglan Injection - IVPB 09/18/16 17:00 10 mg ONCE ONE Administration Ondansetron HCl 4 mg 09/18/16 15:44 09/18/16 16:03 Zofran Injection IVPUSH 09/18/16 15:45 4 mg ONCE ONE Administration Potassium Chloride 40 meq 09/18/16 16:39 09/18/16 17:43 K-Dur - PO 09/18/16 16:40 40 meq ONCE ONE Administration <Minnie Bishop - Last Filed: 10/03/16 04:58> - LABORATORY CBC & Chemistry Diagram: 09/18/16 15:45 09/19/16 05:02 - ADDITIONAL ORDERS Additional order review: 09/18/16 15:45 RBC 5.04 MCV 74.9 L MCHC 32.8 RDW 16.0 H MPV 7.8 Neutrophils % 55.5 D Lymphocytes % 32.3 D Monocytes % 9.7 Eosinophils % 1.2 Basophils % 1.3 - Medications Given in the ED: ED Medications Discontinued Medications Generic Name Dose Route Start Last Admin Trade Name Gila PRN Reason Stop Dose Admin Sodium Chloride 1,000 mls @ 1,000 mls/hr 09/18/16 15:18 09/18/16 15:55 Normal Saline - IV 09/18/16 16:17 1,000 mls/hr ASDIR ONE Administration Sodium Chloride 1,000 mls @ 250 mls/hr 09/18/16 17:43 09/18/16 17:43 Normal Saline - IV 09/18/16 21:42 250 mls/hr ASDIR ONE Administration Levofloxacin 100 mls @ 100 mls/hr 09/18/16 20:35 09/18/16 22:17 Levaquin 500 Mg Premixed Ivpb - IVPB 09/18/16 21:34 100 mls/hr ONCE ONE Administration Potassium Chloride 100 mls @ 100 mls/hr 09/18/16 21:45 09/19/16 01:23 Potassium Chloride 10 Meq Premix Ivpb - IVPB 09/18/16 23:44 100 mls/hr Q60M ROCOÍ Administration Magnesium Sulfate 2 gm 09/18/16 20:34 09/18/16 21:45 Magnesium Sulfate IVPB 09/18/16 20:35 2 gm ONCE ONE Administration Metoclopramide HCl 10 mg 09/18/16 16:59 09/18/16 17:01 Reglan Injection - IVPB 09/18/16 17:00 10 mg ONCE ONE Administration Ondansetron HCl 4 mg 09/18/16 15:44 09/18/16 16:03 Zofran Injection IVPUSH 09/18/16 15:45 4 mg ONCE ONE Administration Potassium Chloride 40 meq 09/18/16 16:39 09/18/16 17:43 K-Dur - PO 09/18/16 16:40 40 meq ONCE ONE Administration <Nic,Eran - Last Filed: 10/06/16 08:49> Medical Decision Making - Medical Decision Making 10/06/16 08:49 The patient was seen and evaluated in conjunction with EMERY Bishop under my direct supervision, ancillary studies were reviewed. I agree with the plan as outlined by EMERY Bishop . <Eran Lucero - Last Filed: 10/06/16 08:49> *DC/Admit/Observation/Transfer - Discharge Dispostion Admit: No <Minnie Bishop - Last Filed: 10/03/16 04:58> <Eran Lucero - Last Filed: 10/06/16 08:49> Diagnosis at time of Disposition: Hypokalemia, Weight loss, non-intentional, Poorly controlled diabetes mellitus , Colitis - Discharge Dispostion Disposition: HOME Condition at time of disposition: Stable - Prescriptions Prescriptions: Ondansetron [Zofran Odt -] 4 mg SL BID #14 od.tablet - Referrals Referrals: Roberto Carlos Gongora MD [Staff Physician] - - Patient Instructions Printed Discharge Instructions: DI for Colitis
[2016-09-18] MEDS ORDERED: MAGNESIUM SULF 50% (8.12 MEQ/2 ML-1 GM VIAL) ONE (21:26)
[2016-09-18] MEDS ORDERED: KCL 10 MEQ IVPB 100 ML IVPB ONE (22:04)
[2016-09-18] MEDS: KCL 10 MEQ IVPB 100 ML IVPB SCH (22:28)
[2016-09-19] MEDS ORDERED: KCL 10 MEQ IVPB 100 ML IVPB ONE (00:07)
[2016-09-19] MEDS: KCL 10 MEQ IVPB 100 ML IVPB SCH (01:23)
[2016-09-19 06:28] VITALS: BP 130/75; PULSE 76; TEMP 97.1
--- NOTE | 2016-09-21 12:51 | EKG ---
Test Reason : Blood Pressure : / mmHG Vent. Rate : 110 BPM Atrial Rate : 110 BPM P-R Int : 128 ms QRS Dur : 084 ms QT Int : 360 ms P-R-T Axes : 050 058 020 degrees QTc Int : 487 ms SINUS TACHYCARDIA POSSIBLE LATERAL INFARCT (CITED ON OR BEFORE 12-SEP-2016) ABNORMAL ECG WHEN COMPARED WITH ECG OF 12-SEP-2016 12:44, T WAVE VARIATION Confirmed by VERNON RIDDLE MD ([id number]) on 09/21/2016 12:51:35 PM Referred By: Confirmed By:VERNON RIDDLE MD
== END 2016-09-19 06:53 | disposition home or self-care (01) ==
LOC: JER 13:38
PROC: 3E0337Z Introduction of Electrolytic and Water Balance Substance into Peripheral Vein, Percutaneous Approach (ICD-10-PCS; principal; 2016-09-18)
PROC: 3E03329 Introduction of Other Anti-infective into Peripheral Vein, Percutaneous Approach (ICD-10-PCS; 2016-09-18)
PROC: 3E033GC Introduction of Other Therapeutic Substance into Peripheral Vein, Percutaneous Approach (ICD-10-PCS; 2016-09-18)
PROC: 3E033GC Introduction of Other Therapeutic Substance into Peripheral Vein, Percutaneous Approach (ICD-10-PCS; 2016-09-18)
DX: E11.65 Type 2 diabetes mellitus with hyperglycemia (principal); Z79.4 Long term (current) use of insulin; E87.6 Hypokalemia; R63.4 Abnormal weight loss; Z68.24 Body mass index [BMI] 24.0-24.9, adult; K52.9 Noninfective gastroenteritis and colitis, unspecified
CPT/HCPCS: 36415; 74177-TC; 76830-TC; 80053; 81003; 81015; 82009; 82803; 83690; 84132; 84703; 85025; 93005; 93010; 99283-25

== ENCOUNTER 2016-10-08 13:26 | Emergency (ER) | payer SELFPAY ==
[2016-10-08 13:36] VITALS: BMI 26.5
--- NOTE | 2016-10-08 14:08 | PDOC ---
History of Present Illness - General History Source: Patient, Old Records Exam Limitations: No Limitations - History of Present Illness Initial Comments: 10/08/16 14:12 The patient is a 46-year-old woman, accompanied by family, with a significant past medical history of hypertension, hypercholesterolemia, type II diabetes mellitus, uteral fibroid who presents to the emergency department for further evaluation of abdominal pain. Patient was seen in this ED on 09/23 for abdominal pain and nausea for which she underwent an abdominal and pelvic CT scan with IV contrast and was indicative for thickening of the proximal sigmoid colon wall and possible diverticula. She also underwent a transvaginal ultrasound which was indicative for a fibroid uterus and she was discharged home. Today, she reports experiencing constant left mid-lower abdominal pain radiating to her left flank, described as a sharp sensation with a rated 10/10 in severity, since yesterday. She reports that her pain has worsened today. She notes that eating and vomiting exacerbates her pain. She reports vomiting approximately 10 times today (no noted bile/blood). She does not report any alleviating factors. She notes associated symptoms of chills and dysuria. No other complaints. No recent ingestion of river, stream or pardo water. No recent ingestion of raw meat. No recent ingestion of shellfish. No antibiotic use in the past 6 months. No recent travel outside of the state. No sick contacts with similar symptoms. No blood or mucous noted in the stools. She denies fever, generalized weakness. She denies chest pain, shortness of breath, cough She denies diarrhea, dysuria, hematuria, urinary frequency and urgency. Allergies: Penicillin Past Surgical History: Tubal Ligation. Cholecystectomy. Social History: Never smoked. No EtOH and recreational drug use. Primary Care Physician: N/A <Diamante Trotter - Last Filed: 10/08/16 15:08> <Luis Allen - Last Filed: 10/08/16 16:45> - General Chief Complaint: Pain Stated Complaint: ABD PAIN, VOMITING Time Seen by Provider: 10/08/16 14:06 Past History <Diamante Trotter - Last Filed: 10/08/16 15:08> - Past Medical History Anemia: No Asthma: No Cancer: No Cardiac Disorders: No CVA: No COPD: No CHF: No Dementia: No Diabetes: Yes GI Disorders: No Disorders: No HTN: Yes Hypercholesterolemia: Yes Liver Disease: No Seizures: No Thyroid Disease: No - Surgical History Abdominal Surgery: (TUBAL LIGATION) Appendectomy: No Cardiac Surgery: No Cholecystectomy: Yes Lung Surgery: No Neurologic Surgery: No Orthopedic Surgery: No - Psycho/Social/Smoking Cessation Hx Anxiety: No Suicidal Ideation: No Smoking Status: No Smoking History: Never smoked Have you smoked in the past 12 months: No Number of Cigarettes Smoked Daily: 0 Information on smoking cessation initiated: No Hx Alcohol Use: No Drug/Substance Use Hx: No Substance Use Type: None Hx Substance Use Treatment: No <Luis Allen - Last Filed: 10/08/16 16:45> - Past Medical History Allergies/Adverse Reactions: Allergies Allergy/AdvReac Type Severity Reaction Status Date / Time Penicillins Allergy Verified 10/08/16 13:36 Home Medications: Ambulatory Orders Enalapril Maleate [Vasotec -] 10 mg PO DAILY #30 tab 09/13/16 Pantoprazole Sodium [Protonix] 40 mg PO DAILY #30 tablet.dr 09/13/16 Insulin (Levemir) [Levemir Flexpen -] 0 units SQ ASDIR 09/18/16 Insulin Glargine,Hum.rec.anlog [Lantus Solostar PEN (NF)] 0 units SQ ASDIR 09/18 Ondansetron [Zofran Odt -] 4 mg SL BID #14 od.tablet 09/19/16 Review of Systems - Review of Systems Able to Perform ROS?: Yes Comments:: 10/08/16 14:12 CONSTITUTIONAL: Present: Chills. Cold sweats. Absent: fever, generalized weakness, malaise, loss of appetite HEENT: Absent: rhinorrhea, nasal congestion, throat pain, throat swelling, difficulty swallowing, mouth swelling, ear pain, eye pain, visual Changes CARDIOVASCULAR: Absent: chest pain, syncope, palpitations, irregular heart rate , lightheadedness, peripheral edema RESPIRATORY: Absent: cough, shortness of breath, dyspnea with exertion, orthopnea, wheezing, stridor, hemoptysis GASTROINTESTINAL: Present: Abdominal Pain. Nausea. Vomiting. Absent: abdominal distension, diarrhea, constipation, melena, hematochezia GENITOURINARY: Present: Dysuria. Absent: frequency, urgency, hesitancy, hematuria, flank pain, genital pain MUSCULOSKELETAL: Absent: myalgia, arthralgia, joint swelling SKIN: Absent: rash, itching, pallor HEMATOLOGIC/IMMUNOLOGIC: Absent: easy bleeding, easy bruising, lymphadenopathy, frequent infections ENDOCRINE:Absent: unexplained weight gain, unexplained weight loss, heat intolerance, cold intolerance NEUROLOGIC: Absent: headache, focal weakness or paresthesias, dizziness, unsteady gait, seizure, mental status changes, bladder or bowel incontinence PSYCHIATRIC: Absent: anxiety, depression, suicidal or homicidal ideation, hallucinations <Diamante Trotter - Last Filed: 10/08/16 15:08> *Physical Exam - Vital Signs Last Vital Signs Temp Pulse Resp BP Pulse Ox 98 F 117 H 16 119/79 99 10/08/16 13:30 10/08/16 13:30 10/08/16 13:30 10/08/16 13:30 10/08/16 13:30 - Physical Exam Comments: 10/08/16 14:12 GENERAL: Well developed, well nourished. Awake and alert. No acute distress. HEENT: Normocephalic, atraumatic. PERRLA, EOMI. No conjunctival pallor. Sclera are non-icteric. Dry mucous membranes. Oropharynx is clear. NECK: Supple. Full ROM. No JVD. CARDIOVASCULAR: Tachycardic but regular rate and rhythm. No murmurs, rubs, or gallops. PULMONARY: No evidence of respiratory distress. Lungs clear to auscultation bilaterally. No wheezing, rales or rhonchi. ABDOMINAL: Soft. There is left lower quadrant tenderness on deep palpation. Non- distended. No rebound or guarding. No organomegaly. Normoactive bowel sounds. MUSCULOSKELETAL: Normal range of motion at all joints. No bony deformities or tenderness. No CVA tenderness. EXTREMITIES: No cyanosis. No clubbing. No edema. No calf tenderness. SKIN: Warm and dry. Normal capillary refill. No rashes. No jaundice. NEUROLOGICAL: Alert, awake, appropriate. Cranial nerves 2-12 intact. No deficits to light touch and temperature in face, upper extremities and lower extremities. No motor deficits in the in face, upper extremities and lower extremities. Normoreflexic in the upper and lower extremities. Normal speech. PSYCHIATRIC: Cooperative. Good eye contact. Appropriate mood and affect. <Diamante Trotter - Last Filed: 10/08/16 15:08> - Vital Signs Last Vital Signs Temp Pulse Resp BP Pulse Ox 98 F 117 H 16 119/79 99 10/08/16 13:30 10/08/16 13:30 10/08/16 13:30 10/08/16 13:30 10/08/16 13:30 <Luis Allen - Last Filed: 10/08/16 16:45> ED Treatment Course - LABORATORY CBC & Chemistry Diagram: 10/08/16 14:50 10/08/16 14:50 <Diamante Trotter - Last Filed: 10/08/16 15:08> - LABORATORY CBC & Chemistry Diagram: 10/08/16 14:50 10/08/16 14:50 <Luis Allen - Last Filed: 10/08/16 16:45> Medical Decision Making - Medical Decision Making 10/08/16 14:00 The patient is well-appearing and in no acute distress She has one SIRS criteria, tachycardia Will obtain labs, urinalysis 10/08/16 15:15 CBC noted, without leukocytosis Chemistries pending Urinalysis pending 10/08/16 15:20 Urinalysis noted, with pyuria and significant hematuria but no bacteriuria Her clinical presentation is potentially consistent with diverticulitis and ureterolithiasis Will obtain CT of the abdomen and pelvis with oral and IV contrast Creatinine pending UHCG pending 10/08/16 15:41 Chemistries noted, with mild hyponatremia I suspect this is secondary to volume depletion Will administer an additional liter of normal saline 10/08/16 16:13 Pt is drinking contrast CT pending 10/08/16 16:45 Oncoming emergency physician has assumed care and will complete the work-up and determine the disposition <Luis Allen - Last Filed: 10/08/16 16:45> *DC/Admit/Observation/Transfer - Attestations Scribe Attestion: 10/08/16 14:12 Documentation prepared by Diamante Trotter, acting as medical office supervisor for Luis Allen MD. <Diamante Trotter - Last Filed: 10/08/16 15:08> <Luis Allen - Last Filed: 10/08/16 16:45> Diagnosis at time of Disposition: Abdominal pain
[2016-10-08] MEDS ORDERED: SODIUM CHLORIDE 1,000 ML IV STA ×2 (14:09→15:42)
[2016-10-08] MEDS ORDERED: ONDANSETRON 4 MG/2 ML VIAL IVPB ONE ×2 (14:28→19:00)
[2016-10-08] MEDS ORDERED: KETOROLAC TROMETHAMINE 30 MG/1 ML VIAL IVPUSH ONE (14:28)
[2016-10-08] MEDS ORDERED: KETOROLAC TROMETHAMINE 60 MG/2 ML VIAL ONE (14:41)
[2016-10-08 15:07] LABS: BASOPHIL 0.9 % (0-2.0); EOSINOPHIL 1.9 % (0-4.5); MCH 24.7 pg (25.7-33.7); MCHC 33.1 g/dl (32.0-36.0); MEAN CELL VOLUME 74.5 fl (80-96); MEAN PLT VOLUME 7.7 fl (7.5-11.1); NEUTROPHILS 50.9 % (42.8-82.8); PLATELET COUNT 284 K/MM3 (134-434); RDW 16.9 % (11.6-15.6); WHITE BLOOD COUNT 4.3 K/mm3 (4.0-10.0)
[2016-10-08 15:09] LABS: URINE APPEARANCE SLCLOUDY; URINE BILIRUBIN NEGATIVE (NEGATIVE); URINE COLOR AMBER; URINE GLUCOSE (UA) 2+ (NEGATIVE); URINE KETONE 1+ (NEGATIVE); URINE NITRITE NEGATIVE (NEGATIVE); URINE UROBILINOGEN 2.0 E.U/dl E.U./dl (0.2-1.0)
[2016-10-08 15:18] LABS: URINE BLOOD 3+ (NEGATIVE); URINE LEUK ESTERASE TRACE (NEGATIVE); URINE PROTEIN 2+ (NEGATIVE)
[2016-10-08 15:20] LABS: URINE MUCUS MANY; URINE RBC 5009 /hpf (0-3); URINE WBC 25 /hpf (3-5)
[2016-10-08 15:34] LABS: ANION GAP 12 (8-16); BILIRUBIN,TOTAL 0.4 mg/dL (0.2-1.0); CALCIUM 9.2 mg/dL (8.5-10.1); CO2 26 mmol/L (21-32); CREATININE 0.7 mg/dL (0.55-1.02); GLUCOSE,RANDOM 274 mg/dL (74-106); SGOT/AST 35 U/L (15-37); SGPT/ALT 45 U/L (12-78); TOT PROT 6.7 g/dl (6.4-8.2)
[2016-10-08 15:35] LABS: ALK PHOS 76 U/L (45-117)
[2016-10-08] MEDS ORDERED: FAMOTIDINE 20 MG/50 ML IVPB 20 MG in PREMIX 50 IV ONE (15:37)
[2016-10-08] MEDS ORDERED: FAMOTIDINE 20 MG/50 ML IVPB 50 ML IVPB ONE (16:10)
[2016-10-08] MEDS ORDERED: METOCLOPRAMIDE HCL INJECTION 10 MG/2 ML VIAL IVPUSH ONE (16:15)
[2016-10-08] MEDS ORDERED: METOCLOPRAMIDE HCL INJECTION 10 MG/2 ML VIAL ONE (16:16)
[2016-10-08] MEDS ORDERED: POTASSIUM CHLORIDE TABS 20 MEQ TABLET.ER (FP) PO ONE ×2 (18:47→19:08)
[2016-10-08] MEDS ORDERED: SODIUM CHLORIDE 500 ML IV STA (19:00)
[2016-10-08] MEDS ORDERED: PANTOPRAZOLE SODIUM 40 MG in SODIUM CHLORIDE 100 ML IVPB ONE (19:00)
[2016-10-08] MEDS ORDERED: PANTOPRAZOLE SODIUM 100 ML IVPB ONE (19:01)
[2016-10-08] MEDS ORDERED: ONDANSETRON 4 MG/2 ML VIAL ONE (19:01)
[2016-10-08] MEDS ORDERED: morphine CARPU-JECT 2 MG/1 ML DISP.SYRIN IVPUSH ONE (20:07)
[2016-10-08] MEDS ORDERED: morphine CARPU-JECT 2 MG/1 ML DISP.SYRIN ONE (20:13)
[2016-10-08 21:03] VITALS: BP 159/95; PULSE 105; TEMP 98.4
--- NOTE | 2016-10-08 21:23 | PDOC ---
*Physical Exam - Vital Signs Last Vital Signs Temp Pulse Resp BP Pulse Ox 98.4 F 105 H 16 159/95 96 10/08/16 21:02 10/08/16 21:02 10/08/16 21:02 10/08/16 21:02 10/08/16 21:02 - Physical Exam Comments: 10/08/16 21:18 Patient endorsed to me by Dr. Allen. Patient is a 46-year-old female who presented with atraumatic epigastric and left lower quadrant pain. CBC/CMP are noted to be within normal limit. Urinalysis reveals more than 5000 RBCs (patient 's currently having her menstrual and has no urinary symptoms or complaints). CT of abdomen and pelvis reveals no evidence of acute intra-abdominal pathology. There is no evidence of diverticulitis or pancreatitis. On further questioning, patient reports that she had been using large amounts of NSAIDs prior to onset of her current symptoms which have lingered for the past several months and required numerous visits to the ER. Patient failed to follow-up with GI as result of losing her health coverage. I suspect patient's symptoms may be related to acute NSAID-related gastritis. At this time, patient is reporting improvement in level of her pain and is able tolerate by mouth. Will discharge with protonic twice a day, Zofran for nausea as needed and GI follow-up for EGD and further evaluation. ED Treatment Course - LABORATORY CBC & Chemistry Diagram: 10/08/16 14:50 10/08/16 14:50 - ADDITIONAL ORDERS Additional order review: Laboratory Results 10/08/16 10/08/16 10/08/16 14:57 14:57 14:57 Sodium Potassium Chloride Carbon Dioxide Anion Gap BUN Creatinine Creat Clearance w eGFR Random Glucose Lactic Acid 1.4 Calcium Total Bilirubin AST ALT Alkaline Phosphatase C-Reactive Protein 0.4 H Total Protein Albumin Lipase Serum , Qual Negative Urine Color [place] Urine Appearance Slcloudy Urine pH 6.0 Ur Specific [place] 1.020 Urine Protein 2+ H Urine Glucose (UA) 2+ H Urine Ketones 1+ H Urine Blood 3+ H Urine Nitrite Negative Urine Bilirubin Negative Urine Urobilinogen 2.0 e.u/dl H Ur Leukocyte Esterase Trace H D Urine RBC 5009 Urine WBC 25 Urine Mucus Many Urine HCG, Qual Cancelled 10/08/16 14:50 Sodium 135 L Potassium 3.3 L Chloride 97 L Carbon Dioxide 26 Anion Gap 12 BUN 6 L D Creatinine 0.7 Creat Clearance w eGFR > 60 Random Glucose 274 H Lactic Acid Calcium 9.2 Total Bilirubin 0.4 D AST 35 D ALT 45 D Alkaline Phosphatase 76 C-Reactive Protein Total Protein 6.7 Albumin 3.0 L Lipase 252 Serum , Qual Urine Color Urine Appearance Urine pH Ur Specific [place] Urine Protein Urine Glucose (UA) Urine Ketones Urine Blood Urine Nitrite Urine Bilirubin Urine Urobilinogen Ur Leukocyte Esterase Urine RBC Urine WBC Urine Mucus Urine HCG, Qual 10/08/16 14:50 RBC 4.59 MCV 74.5 L MCHC 33.1 RDW 16.9 H MPV 7.7 Neutrophils % 50.9 Lymphocytes % 34.8 Monocytes % 11.5 H Eosinophils % 1.9 Basophils % 0.9 - Medications Given in the ED: ED Medications Discontinued Medications Generic Name Dose Route Start Last Admin Trade Name Freq PRN Reason Stop Dose Admin Sodium Chloride 1,000 mls @ 1,000 mls/hr 10/08/16 14:09 10/08/16 14:39 Normal Saline - IV 10/08/16 15:08 1,000 mls/hr ASDIR STA Administration Famotidine/Sodium Chloride 20 50 mls @ 100 mls/hr 10/08/16 15:37 10/08/16 16:09 mg/ Miscellaneous IV 10/08/16 16:06 100 mls/hr ONCE ONE Administration Sodium Chloride 1,000 mls @ 1,000 mls/hr 10/08/16 15:42 10/08/16 16:09 Normal Saline - IV 10/08/16 16:41 1,000 mls/hr ASDIR STA Administration Pantoprazole Sodium 40 mg/ 100 mls @ 200 mls/hr 10/08/16 19:00 10/08/16 19:08 Sodium Chloride IVPB 10/08/16 19:29 200 mls/hr ONCE ONE Administration Sodium Chloride 500 mls @ 500 mls/hr 10/08/16 19:00 10/08/16 19:08 Normal Saline - IV 10/08/16 19:59 500 mls/hr ASDIR STA Administration Ketorolac Tromethamine 30 mg 10/08/16 14:28 10/08/16 14:39 Toradol Injection - IVPUSH 10/08/16 14:29 30 mg ONCE ONE Administration Metoclopramide HCl 10 mg 10/08/16 16:15 10/08/16 16:23 Reglan Injection - IVPUSH 10/08/16 16:16 10 mg ONCE ONE Administration Morphine Sulfate 2 mg 10/08/16 20:07 10/08/16 20:10 Morphine Injection - IVPUSH 10/08/16 20:08 2 mg ONCE ONE Administration Ondansetron HCl 4 mg 10/08/16 14:28 10/08/16 14:39 Zofran Injection IVPB 10/08/16 14:29 4 mg ONCE ONE Administration Ondansetron HCl 8 mg 10/08/16 19:00 10/08/16 19:08 Zofran Injection IVPB 10/08/16 19:01 8 mg ONCE ONE Administration Potassium Chloride 40 meq 10/08/16 18:47 10/08/16 19:08 K-Dur - PO 10/08/16 18:48 40 meq ONCE ONE Administration *DC/Admit/Observation/Transfer Diagnosis at time of Disposition: Abdominal pain Qualifiers: Abdominal location: unspecified location Qualified Code(s): R10.9 - Unspecified abdominal pain Nausea and vomiting Qualifiers: Vomiting type: unspecified Vomiting Intractability: non-intractable Qualified Code(s): R11.2 - Nausea with vomiting, unspecified - Discharge Dispostion Disposition: HOME Condition at time of disposition: Stable - Referrals Referrals: Sravan Fischer MD [Staff Physician] - - Patient Instructions Printed Discharge Instructions: DI for Abdominal Pain-Adult
--- NOTE | 2016-10-12 11:50 | PDOC ---
Patient Follow-up (Call Back) - Post ED Follow - Up Chief Complaint: Pain Condition at time of discharge: Stable Disposition at time of original discharge: HOME Reason for Call Back: Abnwl. Microbiology (E.Coli in urine spoke to pt still having abd pain will send bactrim to [facility]. pt is to see her PMD this week or return to ER for any worsening symptoms. pt agrees with plan and understands the follow up plan.)
== END 2016-10-08 21:36 | disposition home or self-care (01) ==
LOC: JER 13:26
PROC: 3E033GC Introduction of Other Therapeutic Substance into Peripheral Vein, Percutaneous Approach (ICD-10-PCS; principal; 2016-10-08)
PROC: 3E033GC Introduction of Other Therapeutic Substance into Peripheral Vein, Percutaneous Approach (ICD-10-PCS; 2016-10-08)
PROC: 3E033NZ Introduction of Analgesics, Hypnotics, Sedatives into Peripheral Vein, Percutaneous Approach (ICD-10-PCS; 2016-10-08)
PROC: 3E0333Z Introduction of Anti-inflammatory into Peripheral Vein, Percutaneous Approach (ICD-10-PCS; 2016-10-08)
PROC: 3E033GC Introduction of Other Therapeutic Substance into Peripheral Vein, Percutaneous Approach (ICD-10-PCS; 2016-10-08)
DX: R10.84 Generalized abdominal pain (principal); I10 Essential (primary) hypertension; E78.00 Pure hypercholesterolemia, unspecified; D25.9 Leiomyoma of uterus, unspecified; E11.9 Type 2 diabetes mellitus without complications; Z79.4 Long term (current) use of insulin
CPT/HCPCS: 36415; 74177-TC; 80053; 81003; 81015; 83605; 83690; 84703; 85025; 86140; 87086; 87186; 99283-25; Q9967

== ENCOUNTER 2017-09-28 11:23 | Emergency (ER) | payer OTHER ==
[2017-09-28 11:32] VITALS: BMI 28.3
--- NOTE | 2017-09-28 14:49 | PDOC ---
History of Present Illness - General History Source: Patient - History of Present Illness Timing/Duration: reports: constant Quality: reports: other Abdominal Pain Onset Location: reports: generalized abdomen Pain Radiation: reports: back <Elham GuzmanRadhaSravani - Last Filed: 09/28/17 19:16> <Nic,Eran - Last Filed: 10/01/17 09:24> - General Chief Complaint: Pain Stated Complaint: ABD/BACK PAIN Time Seen by Provider: 09/28/17 14:03 Past History - Past Medical History Anemia: No Asthma: No Cancer: No Cardiac Disorders: No CVA: No COPD: No CHF: No DVT: No Dementia: No Diabetes: Yes GI Disorders: Yes (gastroparesis) Disorders: No HTN: Yes Hypercholesterolemia: Yes Liver Disease: No Seizures: No Thyroid Disease: No - Surgical History Abdominal Surgery: Yes (TUBAL LIGATION) Appendectomy: No Cardiac Surgery: No Cholecystectomy: Yes Lung Surgery: No Neurologic Surgery: No Orthopedic Surgery: No - Suicide/Smoking/Psychosocial Hx Smoking Status: No Smoking History: Never smoked Have you smoked in the past 12 months: No Number of Cigarettes Smoked Daily: 0 Information on smoking cessation initiated: No Hx Alcohol Use: No Drug/Substance Use Hx: No Substance Use Type: None Hx Substance Use Treatment: No <Elham GuzmanLuciano - Last Filed: 09/28/17 19:16> <Eran Lucero - Last Filed: 10/01/17 09:24> - Past Medical History Allergies/Adverse Reactions: Allergies Allergy/AdvReac Type Severity Reaction Status Date / Time Penicillins Allergy Verified 09/28/17 11:28 Home Medications: Ambulatory Orders Insulin (Levemir) [Levemir Flexpen -] 0 units SQ ASDIR 09/18/16 Insulin Glargine,Hum.rec.anlog [Lantus Solostar PEN (NF)] 0 units SQ ASDIR 09/18 Ondansetron [Zofran Odt -] 4 mg SL TID #21 od.tablet 10/08/16 Pantoprazole Sodium [Protonix -] 40 mg PO BID #60 tablet.ec 10/08/16 Tramadol HCl 50 mg PO Q6H #20 tablet MDD 200 mg 09/28/17 Review of Systems - Review of Systems Constitutional: No: Chills, Fever, Unexplained wgt Loss ABD/GI: Yes: Nausea, Vomiting. No: Constipated, Diarrhea : No: Dysuria, Hematuria <Braden Guzman - Last Filed: 09/28/17 19:16> *Physical Exam - Vital Signs Last Vital Signs Temp Pulse Resp BP Pulse Ox 98.5 F 112 H 18 146/106 100 09/28/17 11:29 09/28/17 11:29 09/28/17 11:29 09/28/17 11:29 09/28/17 11:29 - Physical Exam General Appearance: Yes: Moderate Distress HEENT: positive: Normal Voice Respiratory/Chest: positive: Lungs Clear, Normal Breath Sounds. negative: Respiratory Distress Cardiovascular: positive: Regular Rate, S1, S2 Gastrointestinal/Abdominal: positive: Normal Bowel Sounds, Soft. negative: Tender, Pulsatile Mass, Distended, Guarding, Rebound Musculoskeletal: negative: CVA Tenderness, Vertebral Tenderness Extremity: positive: Normal Inspection Integumentary: positive: Dry, Warm Neurologic: positive: Fully Oriented, Alert, Normal Mood/Affect <Braden Guzman - Last Filed: 09/28/17 19:16> - Vital Signs Last Vital Signs Temp Pulse Resp BP Pulse Ox 98 F 105 H 18 164/96 98 09/28/17 19:20 09/28/17 19:20 09/28/17 19:20 09/28/17 19:20 09/28/17 19:20 <Eran Lucero - Last Filed: 10/01/17 09:24> Moderate Sedation - Procedure Monitoring Vital Signs: Vital Signs Temp Pulse Resp BP Pulse Ox 98.5 F 112 H 18 146/106 100 09/28/17 11:29 09/28/17 11:29 09/28/17 11:29 09/28/17 11:29 09/28/17 11:29 <Braden Guzman - Last Filed: 09/28/17 19:16> ED Treatment Course - LABORATORY CBC & Chemistry Diagram: 09/28/17 16:26 09/28/17 16:26 <Braden Guzman - Last Filed: 09/28/17 19:16> - LABORATORY CBC & Chemistry Diagram: 09/28/17 16:26 09/28/17 16:26 - ADDITIONAL ORDERS Additional order review: 09/28/17 16:26 RBC 4.10 MCV 76.3 L MCHC 32.5 RDW 15.5 MPV 7.8 Neutrophils % 56.0 Lymphocytes % 31.0 Monocytes % 8.6 Eosinophils % 3.5 D Basophils % 0.9 - Medications Given in the ED: ED Medications Discontinued Medications Generic Name Dose Route Start Last Admin Trade Name [place]ila PRN Reason Stop Dose Admin Sodium Chloride 1,000 mls @ 1,000 mls/hr 09/28/17 15:28 09/28/17 16:26 Normal Saline - IV 09/28/17 16:27 1,000 mls/hr ASDIR STA Administration Ketorolac Tromethamine 30 mg 09/28/17 15:26 09/28/17 16:26 Toradol Injection - IVPUSH 09/28/17 15:27 30 mg ONCE ONE Administration Tramadol HCl 50 mg 09/28/17 17:29 09/28/17 18:25 Ultram - PO 09/28/17 17:30 50 mg ONCE ONE Administration <Eran Lucero - Last Filed: 10/01/17 09:24> Medical Decision Making - Medical Decision Making 09/28/17 14:49 47-year-old female, history of hypertension, hyperlipidemia, diabetes, gastroparesis, fibroids, diverticulosis, status post alecia, renal stones, s/p normal endoscopy w/ her GI 3 months ago per pt, here with chronic complaints. Patient complaining of right lower back pain radiating to diffuse abdomen that has been constant for 3 months. Describes pain as "It feels like I'm carrying someone" with an intensity of 10 out of 10. States she went to see her doctor a month ago and had CT of the abdomen and pelvis with contrast with no remarkable findings. Continues to have intermittent nausea, vomiting, consistent with her gastroparesis but states reglan significantly improves symptoms. Denies dysuria, hematuria, change in bowel movements, fever, chills or unexplained weight loss. Of note, patient has had multiple ER visits going back last year with mostly negative imaging. See exam Chronic back/abd pain of unclear etiology Multiple neg imaging in past including neg CT a/p + last month per pt (imaging not done here) -pain control -labs -reassess 09/28/17 18:08 Pt reports moderate improvement with Motrin. HR now improved. Pt feels safe being discharged to follow-up with her PMD this week. Reasons to return discussed with patient <Braden Guzman - Last Filed: 09/28/17 19:16> - Medical Decision Making The patient was seen and evaluated in conjunction with EMERY Guzman under my direct supervision, ancillary studies were reviewed. I agree with the plan as outlined by EMERY Guzman . <Eran Lucero - Last Filed: 10/01/17 09:24> *DC/Admit/Observation/Transfer <Braden Guzman - Last Filed: 09/28/17 19:16> <Eran Lucero - Last Filed: 10/01/17 09:24> Diagnosis at time of Disposition: Chronic abdominal pain - Discharge Dispostion Disposition: HOME Condition at time of disposition: Improved - Prescriptions Prescriptions: Tramadol HCl 50 mg PO Q6H #20 tablet MDD 200 mg - Referrals Referrals: Sandi Tapia MD [Primary Care Provider] - - Patient Instructions Additional Instructions: The cause of your chronic back and abdominal pain is unclear at this time as workup in ER and past workup have not demonstrated a specific cause of your symptoms. Take medications as prescribed and please follow-up with your doctor this week - Post Discharge Activity
[2017-09-28] MEDS ORDERED: KETOROLAC TROMETHAMINE 30 MG/1 ML VIAL IVPUSH ONE (15:26)
[2017-09-28] MEDS ORDERED: SODIUM CHLORIDE 1,000 ML IV STA (15:28)
[2017-09-28] MEDS ORDERED: KETOROLAC TROMETHAMINE 30 MG/1 ML VIAL ONE (16:09)
[2017-09-28 16:54] LABS: BASO % 0.9 % (0-2.0); EOS % 3.5 % (0-4.5); HEMATOCRIT 31.3 % (32.4-45.2); HEMOGLOBIN 10.2 GM/dL (10.7-15.3); MCH 24.8 pg (25.7-33.7); MCHC 32.5 g/dl (32.0-36.0); MEAN CELL VOLUME 76.3 fl (80-96); MEAN PLT VOLUME 7.8 fl (7.5-11.1); MONO % 8.6 % (3.8-10.2); PLATELET COUNT 377 K/MM3 (134-434); RDW 15.5 % (11.6-15.6); WHITE BLOOD COUNT 5.6 K/mm3 (4.0-10.0)
[2017-09-28 17:25] LABS: ANION GAP 6 (8-16); BILIRUBIN,TOTAL 0.5 mg/dL (0.2-1.0); BLOOD UREA NITROGEN 12 mg/dL (7-18); CHLORIDE 102 mmol/L (98-107); CO2 28 mmol/L (21-32); CREATININE 0.7 mg/dL (0.55-1.02); GLUCOSE,RANDOM 245 mg/dL (74-106); LIPASE 100 U/L (73-393); POTASSIUM 4.2 mmol/L (3.5-5.1); SGOT/AST 14 U/L (15-37); SGPT/ALT 16 U/L (12-78); SODIUM 136 mmol/L (136-145)
[2017-09-28 17:26] LABS: ALK PHOS 101 U/L (45-117)
[2017-09-28] MEDS ORDERED: traMADol HCL 50 MG TABLET PO ONE (17:29)
[2017-09-28] MEDS ORDERED: traMADol HCL 50 MG TABLET ONE (18:14)
[2017-09-28 18:51] LABS: URINE APPEARANCE CLOUDY; URINE BILIRUBIN NEGATIVE (<2.0 mg/dL); URINE COLOR YELLOW; URINE GLUCOSE (UA) 3+ (NEGATIVE); URINE KETONE NEGATIVE (NEGATIVE); URINE LEUK ESTERASE NEGATIVE (NEGATIVE); URINE NITRITE NEGATIVE (NEGATIVE); URINE UROBILINOGEN NEGATIVE mg/dL (0.2-1.0)
[2017-09-28 19:00] LABS: URINE PROTEIN 1+ (NEGATIVE)
[2017-09-28 19:11] LABS: EPI CELLS MANY /HPF (FEW); URINE MUCUS RARE
[2017-09-28 19:22] VITALS: BP 164/96; PULSE 105; TEMP 98
== END 2017-09-28 19:24 | disposition home or self-care (01) ==
LOC: JER 11:23
DX: R10.84 Generalized abdominal pain (principal); I10 Essential (primary) hypertension; E78.5 Hyperlipidemia, unspecified; Z79.4 Long term (current) use of insulin; Z87.19 Personal history of other diseases of the digestive system
CPT/HCPCS: 36415; 80053; 81003; 81015; 83690; 85025; 99282-25; J7030

== ENCOUNTER 2019-12-05 05:08 | Inpatient (IN) | payer OTHER ==
--- NOTE | 2019-12-05 05:10 | PDOC ---
History of Present Illness - General Chief Complaint: SIRS, Suspected/Possible Stated Complaint: ABD PAIN,FEVER,COUGHING Time Seen by Provider: 12/05/19 05:10 History Source: Patient Exam Limitations: No Limitations - History of Present Illness Initial Comments: 12/05/19 05:28 49yF w PMHx DM HTN presenting w 8d chills, non productive cough, generalized malaise, fatigue. Didn't take any meds for symptoms. Denies sick contacts/covid exposures. Denies n/v, fevers, chest pain, SOB, ABD pain, urinary/bowel mvmt changes. Past History - Medical History Allergies/Adverse Reactions: Allergies Allergy/AdvReac Type Severity Reaction Status Date / Time Penicillins Allergy Verified 12/05/19 05:18 Home Medications: Ambulatory Orders Insulin (Levemir) [Levemir Flexpen -] 0 units SQ ASDIR 09/18/16 Insulin Glargine,Hum.rec.anlog [Lantus Solostar PEN (NF)] 0 units SQ ASDIR 09/18 Ondansetron [Zofran Odt -] 4 mg SL TID #21 od.tablet 10/08/16 Pantoprazole Sodium [Protonix -] 40 mg PO BID #60 tablet.ec 10/08/16 Tramadol HCl 50 mg PO Q6H #20 tablet MDD 200 mg 09/28/17 Anemia: No Asthma: No Cancer: No Cardiac Disorders: No CVA: No COPD: No CHF: No DVT: No Dementia: No Diabetes: Yes GI Disorders: Yes (gastroparesis) Disorders: No HTN: Yes Hypercholesterolemia: Yes Liver Disease: No Seizures: No Thyroid Disease: No - Surgical History Abdominal Surgery: Yes (TUBAL LIGATION) Appendectomy: No Cardiac Surgery: No Cholecystectomy: Yes Lung Surgery: No Neurologic Surgery: No Orthopedic Surgery: No - Psycho-Social/Smoking History Smoking Status: No Smoking History: Never smoked Have you smoked in the past 12 months: No Number of Cigarettes Smoked Daily: 0 Review of Systems - Review of Systems Constitutional: Yes: Chills. No: Fever HEENTM: No: Eye Pain, Nose Congestion Respiratory: Yes: Cough. No: Shortness of Breath Cardiac (ROS): No: Chest Pain, Lightheadedness ABD/GI: No: Nausea, Vomiting : No: Burning, Flank Pain Musculoskeletal: No: Back Pain, Joint Pain Integumentary: No: Bruising, Dryness Neurological: No: Headache, Seizure Psychiatric: No: Anxiety, Depression Endocrine: No: Intolerance to Cold, Intolerance to Heat Hematologic/Lymphatic: No: Anemia, Blood Clots *Physical Exam - Physical Exam General Appearance: Yes: Nourished, Appropriately Dressed, Mild Distress HEENT: positive: EOMI, LEXIE, Normal Voice. negative: Scleral Icterus (R), Scleral Icterus (L), Nasal Congestion Respiratory/Chest: positive: Lungs Clear, Rapid RR. 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 negative: Edema, Murmur Gastrointestinal/Abdominal: positive: Normal Bowel Sounds, Flat, Soft. negative: Tender, Organomegaly Musculoskeletal: negative: CVA Tenderness (R), CVA Tenderness (L) Integumentary: positive: Normal Color, Dry, Warm Neurologic: positive: Fully Oriented, Alert, Normal Mood/Affect, Normal Response, Responsive Medical Decision Making - Medical Decision Making 12/05/19 06:08 EKG CXR - zina patchy infiltrates --- 49yF w PMHx DM HTN presenting w 8d chills, non productive cough, generalized malaise, fatigue. Sepsis (temp 102, HR 121, RR 22, hypoxic low 80s RA) 2/2 covid vs UTI Given vanc, meropenem, 30mL/kg NS, tylenol. Started non-rebreather mask. Plan admit m/s for suspected covid, acute respiratory failure on supplemental O2 - pending lab results, EKG Signed out to day team Discharge - Discharge Information Problems reviewed: Yes Clinical Impression/Diagnosis: Suspected COVID-19 virus infection Acute respiratory failure Qualifiers: Respiratory failure complication: hypoxia Qualified Code(s): J96.01 - Acute respiratory failure with hypoxia Sepsis Qualifiers: Sepsis type: sepsis due to unspecified organism Sepsis acute organ dysfunction status: with acute organ dysfunction Severe sepsis acute organ dysfunction type: acute respiratory failure Acute respiratory failure type: with hypoxia Severe sepsis shock status: without septic shock Qualified Code(s): A41.9 - Sepsis, unspecified organism Condition: Guarded - Follow up/Referral Referrals: Sandi Tapia MD [Primary Care Provider] - - Patient Discharge Instructions - Post Discharge Activity
[2019-12-05] MEDS ORDERED: SODIUM CHLORIDE 1,905 ML IV ONE (05:24)
[2019-12-05] MEDS ORDERED: MEROPENEM 1 GM in DEXTROSE 5%-WATER 100 ML IVPB ONE (05:26)
[2019-12-05] MEDS ORDERED: VANCOMYCIN 1 GM in D5W (PRE-DOCKED) 1,000 MG/250 ML IVPB ONE (05:26)
[2019-12-05] MEDS ORDERED: ACETAMINOPHEN 1000 MG/100 ML VIAL (NON FORMULARY) IVPB ONE (05:26)
[2019-12-05] MEDS ORDERED: ACETAMINOPHEN INJECTION 100 ML IVPB ONE (05:30)
[2019-12-05] MEDS ORDERED: MEROPENEM 1 GM VIAL (RESTRICTED TO ID) IVPB ONE (05:30)
[2019-12-05] MEDS ORDERED: VANCOMYCIN 1 GRAM (PRE-DOCKED) 1,000 MG/250 ML BAG IVPB ONE (05:31)
--- NOTE | 2019-12-05 05:35 | PDOC ---
Attending Attestation - Resident Resident Name: Mikie Gutierrez - ED Attending Attestation I have performed the following: I have examined & evaluated the patient, The case was reviewed & discussed with the resident, I agree w/resident's findings & plan - HPI HPI: 12/06/19 01:26 see resident hpi - Physicial Exam PE: 12/06/19 01:26 see resident exam - Medical Decision Making 12/06/19 01:27 49-year-old female with fever and increasing shortness of breath Initial evaluation suggest COVID-19 infection, chest x-ray shows bilateral increased interstitial Case signed out to dayshift pending results and eventual admission Discharge - Discharge Information Problems reviewed: Yes Clinical Impression/Diagnosis: Suspected COVID-19 virus infection Acute respiratory failure Qualifiers: Respiratory failure complication: hypoxia Qualified Code(s): J96.01 - Acute respiratory failure with hypoxia Sepsis Qualifiers: Sepsis type: sepsis due to unspecified organism Sepsis acute organ dysfunction status: with acute organ dysfunction Severe sepsis acute organ dysfunction type: acute respiratory failure Acute respiratory failure type: with hypoxia Severe sepsis shock status: without septic shock Qualified Code(s): A41.9 - Sepsis, unspecified organism Condition: Guarded - Follow up/Referral - Patient Discharge Instructions - Post Discharge Activity
[2019-12-05 06:43] LABS: EPI CELLS >36 /uL (0-25.1); HYALINE CASTS 27 /uL (0-3.1); URINE APPEARANCE CLOUDY; URINE BILIRUBIN NEGATIVE (NEGATIVE); URINE COLOR YELLOW; URINE GLUCOSE (UA) 3+ (NEGATIVE); URINE KETONE 1+ (NEGATIVE); URINE LEUK ESTERASE TRACE (NEGATIVE); URINE NITRITE NEGATIVE (NEGATIVE); URINE PROTEIN 3+ (NEGATIVE); URINE RBC 13 /uL (0-23.9); URINE UROBILINOGEN 0.2 mg/dL (0.2-1.0); URINE WBC 598 /uL (0-25.8)
--- NOTE | 2019-12-05 07:15 | PDOC ---
*Physical Exam - Vital Signs Last Vital Signs Temp Pulse Resp BP Pulse Ox 102.4 F H 121 H 22 H 151/96 100 12/05/19 05:10 12/05/19 05:10 12/05/19 05:10 12/05/19 05:10 12/05/19 06:00 - Physical Exam 12/05/19 09:22 GENERAL: Awake, alert, and fully oriented, in moderate distress HEAD: No signs of trauma, normocephalic, atraumatic EYES: PERRLA, EOMI, sclera anicteric, conjunctiva clear ENT: Auricles normal inspection, hearing grossly normal, nares patent, oropharynx clear without exudates. Moist mucosa NECK: Normal ROM, supple, no lymphadenopathy, JVD, or masses LUNGS: In distress, on 6L NRB. Bilateral lung restrictions. HEART: Regular rate and rhythm, normal S1 and S2, no murmurs, rubs or gallops, peripheral pulses normal and equal bilaterally. ABDOMEN: Soft, normoactive bowel sounds. Tender to palpation on RUQ. No guarding, no rebound. No masses EXTREMITIES : Normal inspection, Normal range of motion, no edema. No clubbing or cyanosis. NEUROLOGICAL: Cranial nerves II through XII grossly intact. Normal speech, normal gait, no focal sensorimotor deficits SKIN: Warm, Dry, normal turgor, no rashes or lesions noted : Copious white discharge. vaginal wall tenderness. Neg cervical wall motion tenderness or adnexal tenderness. ED Treatment Course - LABORATORY CBC & Chemistry Diagram: 12/05/19 06:15 12/05/19 06:15 - ADDITIONAL ORDERS Additional order review: Laboratory Results 12/05/19 05:49 Urine Color Yellow Urine Appearance Cloudy Urine pH 5.0 Ur Specific [place] 1.029 Urine Protein 3+ H Urine Glucose (UA) 3+ H Urine Ketones 1+ H Urine Blood 1+ H Urine Nitrite Negative Urine Bilirubin Negative Urine Urobilinogen 0.2 Ur Leukocyte Esterase Trace Urine WBC (Auto) 598 Urine RBC (Auto) 13 Urine Casts (Auto) 27 U Epithel Cells (Auto) >36 Urine Bacteria (Auto) >10,000 - Medications Given in the ED: ED Medications Discontinued Medications Generic Name Dose Route Start Last Admin Trade Name Freq PRN Reason Stop Dose Admin Acetaminophen 1,000 mg 12/05/19 05:26 12/05/19 06:15 Ofirmev Injection - IVPB 12/05/19 05:27 1,000 mg ONCE ONE Administration Meropenem 1 gm/ Dextrose 100 mls @ 200 mls/hr 12/05/19 05:26 12/05/19 06:15 IVPB 12/05/19 05:55 200 mls/hr ONCE ONE Administration Vancomycin HCl 1,000 mg 12/05/19 05:26 12/05/19 06:44 Vancomycin (Pre-Docked) IVPB 12/05/19 05:27 1,000 mg ONCE ONE Administration Protocol Medical Decision Making - Medical Decision Making 12/05/19 07:05 Received signout from PM team. 49yF w PMHx DM HTN presenting w 8d chills, non productive cough, generalized malaise, fatigue. Didn't take any meds for symptoms. Denies sick contacts/covid exposures. Denies n/v, fevers, chest pain, SOB, ABD pain, urinary/bowel mvmt changes. Pt was saturating in 80s so was given NRB. Pt found to have UTI and cxr with patchy infiltrates and vitals that met SIRs criteria. Pt was given 30cc/kg fluids, vanc and meropenem. Waiting on labs will assess and admit. On further questioning Pt had RUQ abdominal pain going on for years. Also had burning in urination and vaginal discharge going on for three months but new onset back pain going on for 3 days. Pt also has positive Left sided CVA tenderness. 12/05/19 10:[address] scan showed possible COVID pt was admitted to Dr. Irene Hale. Pt also elevated glucose which she has not taken her insulin for one week. Will give 50 of insulin Discharge - Discharge Information Problems reviewed: Yes Clinical Impression/Diagnosis: Suspected COVID-19 virus infection Acute respiratory failure Qualifiers: Respiratory failure complication: hypoxia Qualified Code(s): J96.01 - Acute respiratory failure with hypoxia Sepsis Qualifiers: Sepsis type: sepsis due to unspecified organism Sepsis acute organ dysfunction status: with acute organ dysfunction Severe sepsis acute organ dysfunction type: acute respiratory failure Acute respiratory failure type: with hypoxia Severe sepsis shock status: without septic shock Qualified Code(s): A41.9 - Sepsis, unspecified organism Condition: Guarded - Admission Yes - Follow up/Referral Referrals: Hadi,Sandi, MD [Primary Care Provider] - - Patient Discharge Instructions - Post Discharge Activity
[2019-12-05 07:26] LABS: BASO % 0.2 % (0-2.0); HEMOGLOBIN 12.6 GM/dL (10.7-15.3); LYMPH % 17.3 % (8-40); MCH 26.3 pg (25.7-33.7); MCHC 32.2 g/dl (32.0-36.0); MEAN CELL VOLUME 81.6 fl (80-96); MEAN PLT VOLUME 8.6 fl (7.5-11.1); MONO % 10.6 % (3.8-10.2); NEUT % 71.9 % (42.8-82.8); PLATELET COUNT 265 K/MM3 (134-434); RBC 4.78 M/mm3 (3.60-5.2); RDW 14.5 % (11.6-15.6)
[2019-12-05 07:34] LABS: ALBUMIN 2.3 g/dl (3.4-5.0); BILIRUBIN,TOTAL 0.3 mg/dL (0.2-1); BLOOD UREA NITROGEN 20.1 mg/dL (7-18); CALCIUM 8.9 mg/dL (8.5-10.1); CREATININE 1.1 mg/dL (0.55-1.3); POTASSIUM 4.8 mmol/L (3.5-5.1); TOT PROT 7.7 g/dl (6.4-8.2)
[2019-12-05 07:36] LABS: INR 0.92 (0.83-1.09); PROTHROMBIN TIME (PATIENT) 10.8 SEC (9.7-13.0)
[2019-12-05 07:39] LABS: ACTIVATED PTT 29.2 SECONDS (25.2-36.5)
--- NOTE | 2019-12-05 09:12 | EKG ---
Test Reason : Blood Pressure : / mmHG Vent. Rate : 115 BPM Atrial Rate : 115 BPM P-R Int : 114 ms QRS Dur : 080 ms QT Int : 312 ms P-R-T Axes : 056 067 048 degrees QTc Int : 431 ms SINUS TACHYCARDIA POSSIBLE LATERAL INFARCT (CITED ON OR BEFORE 12-SEP-2016) ABNORMAL ECG WHEN COMPARED WITH ECG OF 18-SEP-2016 21:34, NONSPECIFIC T WAVE ABNORMALITY NO LONGER EVIDENT IN INFERIOR LEADS T WAVE INVERSION NO LONGER EVIDENT IN ANTERIOR LEADS Confirmed by MD SHAHRZAD, INOCENCIO ([id number]) on 12/05/2019 9:12:01 AM Referred By: Confirmed By:INOCENCIO MARKHAM MD
[2019-12-05] MEDS ORDERED: DEXAMETHASONE SOD PHOSPHATE 4 MG/1 ML VIAL IVPUSH ONE ×2 (09:29→15:43)
[2019-12-05] MEDS ORDERED: DEXAMETHASONE SOD PHOSPHATE 4 MG/1 ML VIAL ONE (09:46)
[2019-12-05] MEDS ORDERED: INSULIN (LEVEMIR) 100 UNITS/ML UNITS SQ ONE ×2 (10:02→10:12)
--- NOTE | 2019-12-05 10:39 | HP ---
CHIEF COMPLAINT: SOB PCP: Dr. Demetria Junior HISTORY OF PRESENT ILLNESS: 49 y/o DM, HTN, Gastroparesis presents with SOB. Last Wednesday patient woke in her usual state of health. After returning home from a job interview, she felt fatigue and rested. Her fatigue progressed to weakness to the point where she was unable to get up from the bed. Since then, she endorses a decreased appetite, decreased PO intake, sore throat, subjective fevers. She says she felt so bad that she was unable to take her insulin for the past 2-3 days. She discussed her sx's with her PCP but they were unable to test her for 2-3 weeks and advised her to vist [facility] [place]. Patient did not want to visit the hospital however she then experienced difficulty with breathing accompanied by pleuritic chest pain with deep inhalation that awoke her from sleep prompting her to visit [facility] [place]. She additionally complain of loss of taste but has a sensation of smell. Endorses diarrhea, 3-4 episodes nonbloody last week. Patient tried tylenol at home with minimal relief. Denies any chest pain, Nausea, vomiting, constipation, hematuria, headache. Denies any recent medication changes, travel, trauma or sick contacts. Patient says she has been quarantining herself and her only possible exposure may have been at the job interview. Additionally endorses dysuria x 1 month. She visited her OBGyn who rx'ed monistat however it provided minimal relief. ER course was notable for: (1) NS 1L, Meropenem, Ofirmev, Vanco (2) Decadron (3) CTA Chest/CTAP Recent Travel: Denies PAST MEDICAL HISTORY: As per HPI PAST SURGICAL HISTORY: [facility] (2005) Social History: Smoking: Denies Alcohol: Denies Drugs: Denies Occupation: Unemployed Residence: in house with , Children Ambulation: without assistance Allergies Penicillins Allergy (Verified 12/05/19 05:18) HOME MEDICATIONS: Home Medications Medication Instructions Recorded Insulin Glargine,Hum.rec.anlog 50 units SQ DAILY 09/18/16 [Lantus Solostar PEN (NF)] Ondansetron [Zofran Odt -] 4 mg SL TID #21 od.tablet 10/08/16 Amitriptyline HCl [Elavil -] 0 mg PO DAILY 12/05/19 Gabapentin [Neurontin -] 900 mg PO BID 12/05/19 Omeprazole 20 mg PO DAILY 12/05/19 metFORMIN HCL [Metformin HCl ER] 1,000 mg PO DAILY 12/05/19 REVIEW OF SYSTEMS As per HPI PHYSICAL EXAMINATION Last Vital Signs Temp Pulse Resp BP Pulse Ox 99.5 F 104 H 20 141/92 100 12/05/19 09:21 12/05/19 09:21 12/05/19 09:21 12/05/19 09:21 12/05/19 10:34 GENERAL: A&Ox3, NAD HEAD: NCAT EYES: PERRL, EOMI ENT: Moist mucous membranes. NECK: No JVD LUNGS: Diminished breath sounds at the bases, Poor inspiratory effort HEART: Tachycardic, S1 S2 ABDOMEN: Soft, Diffusely tender to palpation, not distended, + bowel sounds, no guarding, no rebound MUSCULOSKELETAL: No CVA tenderness. EXTREMITIES: No peripheral edema. NEUROLOGICAL: Cranial nerves II-XII intact. Normal speech. Gross sensation intact throughout. 5/5 muscle strength throughout. PSYCHIATRIC: Cooperative. SKIN: Warm, dry Laboratory Last Values WBC 3.0 K/mm3 (4.0-10.0) L 12/05/19 06:15 RBC 4.78 M/mm3 (3.60-5.2) 12/05/19 06:15 Hgb 12.6 GM/dL (10.7-15.3) 12/05/19 06:15 Hct 39.0 % (32.4-45.2) D 12/05/19 06:15 MCV 81.6 fl (80-96) 12/05/19 06:15 MCH 26.3 pg (25.7-33.7) 12/05/19 06:15 MCHC 32.2 g/dl (32.0-36.0) 12/05/19 06:15 RDW 14.5 % (11.6-15.6) 12/05/19 06:15 Plt Count 265 K/MM3 (134-434) D 12/05/19 06:15 MPV 8.6 fl (7.5-11.1) D 12/05/19 06:15 Absolute Neuts (auto) 2.1 K/mm3 (1.5-8.0) 12/05/19 06:15 Neutrophils % 71.9 % (42.8-82.8) D 12/05/19 06:15 Lymphocytes % 17.3 % (8-40) D 12/05/19 06:15 Monocytes % 10.6 % (3.8-10.2) H 12/05/19 06:15 Eosinophils % 0.0 % (0-4.5) D 12/05/19 06:15 Basophils % 0.2 % (0-2.0) 12/05/19 06:15 Nucleated RBC % 0 % (0-0) 12/05/19 06:15 PT with INR 10.80 SEC (9.7-13.0) 12/05/19 06:15 INR 0.92 (0.83-1.09) 12/05/19 06:15 PTT (Actin FS) 29.2 SECONDS (25.2-36.5) 12/05/19 06:15 D-Dimer 411 ng/ml (0-500) 12/05/19 07:55 Sodium 136 mmol/L (136-145) 12/05/19 06:15 Potassium 4.8 mmol/L (3.5-5.1) 12/05/19 06:15 Chloride 102 mmol/L (98-107) 12/05/19 06:15 Carbon Dioxide 18 mmol/L (21-32) L 12/05/19 06:15 Anion Gap 17 MMOL/L (8-16) H 12/05/19 06:15 BUN 20.1 mg/dL (7-18) H 12/05/19 06:15 Creatinine 1.1 mg/dL (0.55-1.3) 12/05/19 06:15 Est GFR (CKD-EPI)AfAm 68.75 12/05/19 06:15 Est GFR (CKD-EPI)NonAf 59.32 12/05/19 06:15 POC Glucometer 457 UNITS (80-120) 12/05/19 09:29 Random Glucose 400 mg/dL (74-106) H 12/05/19 06:15 Lactic Acid 2.6 mmol/L (0.4-2.0) H* 12/05/19 05:33 Calcium 8.9 mg/dL (8.5-10.1) 12/05/19 06:15 Ferritin 319.1 ng/ml (8-388) 12/05/19 06:15 Total Bilirubin 0.3 mg/dL (0.2-1) 12/05/19 06:15 AST 114 U/L (15-37) H 12/05/19 06:15 ALT 86 U/L (13-61) H 12/05/19 06:15 Alkaline Phosphatase 148 U/L (45-117) H 12/05/19 06:15 LD Total 344 U/L (84-246) H 12/05/19 06:15 Troponin I < 0.02 ng/ml (0.00-0.05) 12/05/19 06:15 C-Reactive Protein 12.0 MG/DL (0.00-0.3) H 12/05/19 06:15 Total Protein 7.7 g/dl (6.4-8.2) 12/05/19 06:15 Albumin 2.3 g/dl (3.4-5.0) L 12/05/19 06:15 Beta HCG, Quant Cancelled 12/05/19 06:15 Serum , Qual Negative 12/05/19 08:00 Urine Color Yellow 12/05/19 05:49 Urine Appearance Cloudy 12/05/19 05:49 Urine pH 5.0 (5.0-8.0) 12/05/19 05:49 Ur Specific [place] 1.029 (1.010-1.035) 12/05/19 05:49 Urine Protein 3+ (NEGATIVE) H 12/05/19 05:49 Urine Glucose (UA) 3+ (NEGATIVE) H 12/05/19 05:49 Urine Ketones 1+ (NEGATIVE) H 12/05/19 05:49 Urine Blood 1+ (NEGATIVE) H 12/05/19 05:49 Urine Nitrite Negative (NEGATIVE) 12/05/19 05:49 Urine Bilirubin Negative (NEGATIVE) 12/05/19 05:49 Urine Urobilinogen 0.2 mg/dL (0.2-1.0) 12/05/19 05:49 Ur Leukocyte Esterase Trace (NEGATIVE) 12/05/19 05:49 Urine WBC (Auto) 598 /uL (0-25.8) 12/05/19 05:49 Urine RBC (Auto) 13 /uL (0-23.9) 12/05/19 05:49 Urine Casts (Auto) 27 /uL (0-3.1) 12/05/19 05:49 U Epithel Cells (Auto) >36 /uL (0-25.1) 12/05/19 05:49 Urine Bacteria (Auto) >10,000 /uL (0-1359) 12/05/19 05:49 ASSESSMENT/PLAN: 49 y/o DM, HTN, Gastroparesis presents with SOB, Subjective fevers, diarrhea, and loss of taste. Patient founds to be in Sepsis (TMax 102.4, HR 121, RR 22, WBC 3.0) with Chest CTA Findings suggestive of Covid19 Pneumonitis, UA positive for UTI. #Sepsis -In the setting of COVID19 pneumonitis VS UTI -Follow covid serologies, Blood Cx, Urine Cx -Check Sputum Cx, Urine Legionella/Pneumoniae Ag, -Given 1L NS in ED; Give 500ccs more then hold off -Trend Lactic -ID (Dr. Clements) consulted -Continue Vanco/Meropenem -CT A/P without acute pathology though patient complains of white discharge inaddition to dysuria; Pelvic Exam as per ED Documentation. Will consider OBGyn consult if patient does not begin to improve #Acute Hypoxic Respiratory failure -In the setting of COVID19 pneumonitis findings on Chest CTA -Chest CTA negative for PE; Elevated CRP, LDH -Continue Decadron 6mg Daily IV -Full dose Lovenox -Vit C/D/zinc -Albuterol MDI -Supplemental O2 to maintain SpO2 >92%; Currently on NRB -Trend inflammatory Markers -Pulm Consulted; Will consider Remdesevir and C-Plasma #Anion Gap Metabolic Acidosis -In the setting of lactic acidosis; Will need to r/o DKA as patient as mild AG, Ketonuria, Low Serum Bicarb--Likely due to medication nonadherence vs Sepsis -Check Stat Beta-Hydroxybutyrate and repeat CMP -Will consider stat IVPush Regular Insulin followed by Insulin GTT pending above #Transaminitis -likely due to [place] (Diffuse fatty infiltrate on CT); Possibly due to sepsis from Covid -Check hepatitis panel -Trend LFTs #FEN -No standing fluids -Replete Lytes PRN -Soft diet #PPx -DVT: Lovenox Visit type - Emergency Visit Emergency Visit: Yes ED Registration Date: 12/05/19 Care time: The patient presented to the Emergency Department on the above date and was hospitalized for further evaluation of their emergent condition. - New Patient This patient is new to me today: Yes Date on this admission: 12/06/19 - Critical Care Critical Care patient: Yes Total Critical Care Time (in minutes): 40 Critical Care Statement: The care of this patient involved high complexity decision making to prevent further life threatening deterioration of the patie nt's condition and/or to evaluate & treat vital organ system(s) failure or risk of failure. ATTENDING PHYSICIAN STATEMENT I saw and evaluated the patient. I reviewed the resident's note and discussed the case with the resident. I agree with the resident's findings and plan as documented. SUBJECTIVE: OBJECTIVE: ASSESSMENT AND PLAN:
[2019-12-05] MEDS ORDERED: SODIUM CHLORIDE 1,000 ML IV STA (11:51)
--- NOTE | 2019-12-05 12:52 | CONSULT ---
Consultation: REQUESTING PROVIDER: CONSULT REQUEST: We have been asked to medically evaluate this patient for DKA and likely COVID-19 related acute respiratory distress. HISTORY OF PRESENT ILLNESS: 49 y/o DM, HTN, cholecystectomy, Gastroparesis presented to the ED with SOB. Last Wednesday patient woke in her usual state of health. After returning home from a job interview, she felt fatigue and rested. Her fatigue progressed to debilitating weakness, unable to get out of bed. Reports decreased appetite, loss of taste, decreased PO intake, sore throat, subjective fevers, too ill to take her insulin, polydipsia and polyuria. Also reported diarrhea, 3-4 episodes nonbloody last week. Her PCP was unable to see her for 2-3 weeks and recommended that she goes to [facility]. She decided to go the ED after a paroxysmal nocturnal dyspnea episode, accompanied by pleuritic pain. Tylenol offered no relief. Of note, she has been quarantining at home since onset of symptoms. REVIEW OF SYSTEMS: CONSTITUTIONAL: Admits to fevers for 2 days along with generalized weakness HEENT: Absent: rhinorrhea, nasal congestion, throat pain, throat swelling, difficulty swallowing, mouth swelling, ear pain, eye pain, visual changes CARDIOVASCULAR: Absent: chest pain, syncope, palpitations, irregular heart rate, lightheadedness, peripheral edema RESPIRATORY: Admits to SOB worse on exertion and when laying flat GASTROINTESTINAL: Absent: abdominal pain, abdominal distension, nausea, vomiting, diarrhea, constipation, melena, hematochezia GENITOURINARY: Admits to increased urination and pain on urination. MUSCULOSKELETAL: Absent: myalgia, arthralgia, joint swelling, back pain, neck pain SKIN: Absent: rash, itching, pallor NEUROLOGIC: Absent: headache, focal weakness or paresthesias, dizziness, unsteady gait, seizure, mental status changes, bladder or bowel incontinence PHYSICAL EXAMINATION GENERAL: Awake, alert, and fully oriented, in no acute distress. HEAD: Normal with no signs of trauma. EYES: Pupils equal, round and reactive to light, extraocular movements intact, sclera anicteric, conjunctiva clear. No lid lag. EARS, NOSE, THROAT: Ears normal, nares patent, oropharynx clear without exudates. Moist mucous membranes. NECK: Normal range of motion, supple without lymphadenopathy, JVD, or masses. LUNGS: Breath sounds equal, clear to auscultation bilaterally. No wheezes, and no crackles. No accessory muscle use. Speaking in full sentences, RR 18 HEART: Tachycardic and rhythm, normal S1 and S2 without murmur, rub or gallop. ABDOMEN: Soft, nontender, not distended, normoactive bowel sounds, no guarding, no rebound, no masses. No hepatomegaly or splenomegaly. MUSCULOSKELETAL: Normal range of motion at all joints. No bony deformities or tenderness. No CVA tenderness noted on my exam. UPPER EXTREMITIES: 2+ pulses, warm, well-perfused. No cyanosis. No clubbing. Cap refill <2 seconds. No peripheral edema. LOWER EXTREMITIES: 2+ pulses, warm, well-perfused. No calf tenderness. No peripheral edema. NEUROLOGICAL: Cranial nerves II-XII intact. Normal speech. Normal gait. PSYCHIATRIC: Cooperative. Good eye contact. Appropriate mood and affect. SKIN: Warm, dry, normal turgor, no rashes or lesions noted. Vital Signs (72 hours) 12/05/19 12/05/19 12/05/19 05:10 06:00 07:23 Temperature 102.4 F H Pulse Rate 121 H 108 H Pulse Rate [ Apical] Respiratory 22 H Rate Blood Pressure 151/96 Blood Pressure [Left Arm] O2 Sat by Pulse 100 100 100 Oximetry (%) 12/05/19 12/05/19 12/05/19 09:05 09:21 10:34 Temperature 99.9 F H 99.5 F Pulse Rate Pulse Rate [ 108 H 104 H Apical] Respiratory 20 20 Rate Blood Pressure Blood Pressure 141/92 [Left Arm] O2 Sat by Pulse 100 100 100 Oximetry (%) 12/05/19 12/05/19 12/05/19 12:20 12:29 14:00 Temperature 99.2 F 98.2 F Pulse Rate 102 H 92 H Pulse Rate [ 100 H Apical] Respiratory 20 32 H Rate Blood Pressure 152/92 Blood Pressure 162/102 H [Left Arm] O2 Sat by Pulse 100 100 Oximetry (%) 12/05/19 14:30 Temperature 98.6 F Pulse Rate 91 H Pulse Rate [ Apical] Respiratory 35 H Rate Blood Pressure 159/92 Blood Pressure [Left Arm] O2 Sat by Pulse 97 Oximetry (%) Laboratory Results - last 24 hr Laboratory Last Values WBC 3.0 K/mm3 (4.0-10.0) L 12/05/19 06:15 RBC 4.78 M/mm3 (3.60-5.2) 12/05/19 06:15 Hgb 12.6 GM/dL (10.7-15.3) 12/05/19 06:15 Hct 39.0 % (32.4-45.2) D 12/05/19 06:15 MCV 81.6 fl (80-96) 12/05/19 06:15 MCH 26.3 pg (25.7-33.7) 12/05/19 06:15 MCHC 32.2 g/dl (32.0-36.0) 12/05/19 06:15 RDW 14.5 % (11.6-15.6) 12/05/19 06:15 Plt Count 265 K/MM3 (134-434) D 12/05/19 06:15 MPV 8.6 fl (7.5-11.1) D 12/05/19 06:15 Absolute Neuts (auto) 2.1 K/mm3 (1.5-8.0) 12/05/19 06:15 Neutrophils % 71.9 % (42.8-82.8) D 12/05/19 06:15 Lymphocytes % 17.3 % (8-40) D 12/05/19 06:15 Monocytes % 10.6 % (3.8-10.2) H 12/05/19 06:15 Eosinophils % 0.0 % (0-4.5) D 12/05/19 06:15 Basophils % 0.2 % (0-2.0) 12/05/19 06:15 Nucleated RBC % 0 % (0-0) 12/05/19 06:15 PT with INR 10.80 SEC (9.7-13.0) 12/05/19 06:15 INR 0.92 (0.83-1.09) 12/05/19 06:15 PTT (Actin FS) 29.2 SECONDS (25.2-36.5) 12/05/19 06:15 D-Dimer 361 ng/ml (0-500) 12/05/19 11:05 Anticoagulation Therapy No Result Required. 12/05/19 12:18 Puncture Site Left radial 12/05/19 12:18 Patient Temperature No Result Required. 12/05/19 12:18 ABG pH 7.347 (7.350-7.450) L 12/05/19 12:18 ABG pCO2 32.30 mmHg (35-45) L 12/05/19 12:18 ABG pO2 123.7 mmHg (80-100) H 12/05/19 12:18 ABG HCO3 17.3 mmol/L (22-27) L 12/05/19 12:18 ABG O2 Sat (Measured) 98.3 mmHg (95-98) H 12/05/19 12:18 ABG O2 Content No Result Required. 12/05/19 12:18 ABG Base Excess -7.2 mmol/L (-2-2) L 12/05/19 12:18 John Paul Test No Result Required. 12/05/19 12:18 Patient On Oxygen Yes 12/05/19 12:18 O2 Delivery Device Breather 12/05/19 12:18 Oxygen Flow Rate 100 12/05/19 12:18 Vent Mode No Result Required. 12/05/19 12:18 Vent Rate No Result Required. 12/05/19 12:18 Mechanical Rate No Result Required. 12/05/19 12:18 PEEP No Result Required. 12/05/19 12:18 Pressure Support Vent No Result Required. 12/05/19 12:18 Sodium 139 mmol/L (136-145) 12/05/19 12:01 Potassium 4.4 mmol/L (3.5-5.1) 12/05/19 12:01 Chloride 108 mmol/L (98-107) H 12/05/19 12:01 Carbon Dioxide 19 mmol/L (21-32) L 12/05/19 12:01 Anion Gap 11 MMOL/L (8-16) 12/05/19 12:01 BUN 16.8 mg/dL (7-18) 12/05/19 12:01 Creatinine 0.8 mg/dL (0.55-1.3) 12/05/19 12:01 Est GFR (CKD-EPI)AfAm 101.04 12/05/19 12:01 Est GFR (CKD-EPI)NonAf 87.18 12/05/19 12:01 POC Glucometer 304 UNITS (80-120) 12/05/19 13:16 Random Glucose 359 mg/dL (74-106) H 12/05/19 12:01 Hemoglobin A1c % < 3.5 % (4.2-6.3) L 12/05/19 12:01 Lactic Acid 0.9 mmol/L (0.4-2.0) 12/05/19 15:14 Calcium 8.2 mg/dL (8.5-10.1) L 12/05/19 12:01 Phosphorus 3.0 mg/dL (2.5-4.9) 12/05/19 12:01 Magnesium 2.6 mg/dL (1.8-2.4) H 12/05/19 12:01 Ferritin 319.1 ng/ml (8-388) 12/05/19 06:15 Total Bilirubin 0.3 mg/dL (0.2-1) 12/05/19 12:01 AST 83 U/L (15-37) H 12/05/19 12:01 ALT 72 U/L (13-61) H 12/05/19 12:01 Alkaline Phosphatase 131 U/L (45-117) H 12/05/19 12:01 LD Total 344 U/L (84-246) H 12/05/19 06:15 Troponin I < 0.02 ng/ml (0.00-0.05) 12/05/19 06:15 C-Reactive Protein 12.0 MG/DL (0.00-0.3) H 12/05/19 06:15 Total Protein 7.2 g/dl (6.4-8.2) 12/05/19 12:01 Albumin 2.0 g/dl (3.4-5.0) L 12/05/19 12:01 Beta-Hydroxybutyrate 39.2 mg/dL (0.2-2.8) H 12/05/19 06:15 Beta HCG, Quant Cancelled 12/05/19 06:15 Serum , Qual Negative 12/05/19 08:00 Urine Color Yellow 12/05/19 05:49 Urine Appearance Cloudy 12/05/19 05:49 Urine pH 5.0 (5.0-8.0) 12/05/19 05:49 Ur Specific [place] 1.029 (1.010-1.035) 12/05/19 05:49 Urine Protein 3+ (NEGATIVE) H 12/05/19 05:49 Urine Glucose (UA) 3+ (NEGATIVE) H 12/05/19 05:49 Urine Ketones 1+ (NEGATIVE) H 12/05/19 05:49 Urine Blood 1+ (NEGATIVE) H 12/05/19 05:49 Urine Nitrite Negative (NEGATIVE) 12/05/19 05:49 Urine Bilirubin Negative (NEGATIVE) 12/05/19 05:49 Urine Urobilinogen 0.2 mg/dL (0.2-1.0) 12/05/19 05:49 Ur Leukocyte Esterase Trace (NEGATIVE) 12/05/19 05:49 Urine WBC (Auto) 598 /uL (0-25.8) 12/05/19 05:49 Urine RBC (Auto) 13 /uL (0-23.9) 12/05/19 05:49 Urine Casts (Auto) 27 /uL (0-3.1) 12/05/19 05:49 U Epithel Cells (Auto) >36 /uL (0-25.1) 12/05/19 05:49 Urine Bacteria (Auto) >10,000 /uL (0-1359) 12/05/19 05:49 SARS-CoV-2 Ab Interp Non-reactive (NONREACTIVE) 12/05/19 11:05 Active Medications Acetaminophen (Ofirmev Injection -) 1,000 mg IVPB Q6H PRN PRN Reason: FEVER Stop: 12/06/19 14:46 Albuterol Sulfate (Ventolin Hfa Inhaler -) 2 puff IH Q4H PRN PRN Reason: SHORT OF BREATH/WHEEZING Ascorbic Acid (Vitamin C -) 250 mg PO BID [facility] Chlorhexidine Gluconate (Hibiclens For Decolonization -) 1 applic TP HS [facility] Cholecalciferol (Vitamin D3 -) 1,000 unit PO DAILY [facility] Enoxaparin Sodium (Lovenox -) 80 mg SQ BID [facility] Gabapentin (Neurontin -) 900 mg PO BID [facility] Non-Formulary Medication 100 (mg/ Sodium Chloride) 250 mls @ 250 mls/hr IVPB DAILY [facility] Stop: 12/09/19 10:59 Non-Formulary Medication 200 (mg/ Sodium Chloride) 250 mls @ 250 mls/hr IVPB ONCE ONE Stop: 12/05/19 16:59 Azithromycin (Zithromax 500mg Ivpb (Pre-Docked)) 500 mg in 250 mls @ 250 mls/hr IVPB DAILY [facility] Ceftriaxone Sodium 2 gm/ (Dextrose) 100 mls @ 200 mls/hr IVPB DAILY [facility]; Protocol Insulin Aspart (Novolog Vial Sliding Scale -) 1 vial SQ ACHS [facility]; Protocol Mupirocin (Bactroban Ointment (For Decolonization) -) 1 applic NS BID [facility] Stop: 12/10/19 21:59 Pantoprazole Sodium (Protonix -) 20 mg PO DAILY [facility] Zinc Sulfate (Orazinc -) 220 mg PO BID [facility] ASSESSMENT/PLAN: 49 y/o DM, HTN, cholecystectomy, Gastroparesis presented to the ED with SOB, Subjective fevers, diarrhea, and loss of taste. Patient met criteria for sepsis protocol, with Chest CTA findings suggestive of Covid19 Pneumonitis, EMS reported her oxygen Sat was 80% upon their arrival. Workup also met criteria for mild DKA. ED Course: - Patient was satting in the 80s upon arrival then given NRB. Pt found to have UTI with CVA tenderness and CXR with patchy infiltrates and vitals met SIRs criteria. Was given 30 cc/kg fluids as protocol, vanc and meropenem. CT scan showed possible covid and decadron 1 dose 6 mg IVPush was given. #Sepsis - In the setting of COVID19 pneumonitis VS UTI - Arrived with 102.4 fever, tachy, elevated RR, received tylenol and vitals improved - Follow blood Cx, Urine Cx - Check Sputum Cx, Urine Legionella/Pneumoniae Ag, - Given 3L of NS. - ID (Dr. Clements/Harrison) consulted, awaiting recommendations - Received dose of Vanco/Meropenem. Awaiting recommendations from ID. - CT A/P without acute pathology though patient complains of white discharge in addition to dysuria #Acute Hypoxic Respiratory failure - In the setting of COVID19 pneumonitis findings on Chest CTA - Chest CTA negative for PE - Decadron 6 mg IVPush Daily - Full dose Lovenox (awaiting accurate weight), will give 1 mg/kg initial dose then BID 1 mg/kg mg/kg - Vit C/D/zinc - Albuterol MDI PRN - Supplemental O2 to maintain SpO2 >92%; Currently 100% STAT at 12L flow rate - Inflammatory Markers: LD total 344, elevated. CRP 12, elevated. D-dimer wnl - Leukopenia - SARS Covid-19 serology negative - Pulmonology (Dr. Rivas) in the ICU is following. Will consider Remdesevir and C-Plasma #Anion Gap Metabolic Acidosis - Initial Beta-Hydroxybutyrate in DKA range, 39.2, ketonuria - Anion gap closed - LA was elevated, now within normal range - Bicarbonate levels are improving, now above DKA range - ISS (No gtt recommended at this time) - BGM ACHS, BG trending down #Transaminitis - likely due to [place] (Diffuse fatty infiltrate on CT); Possibly due to sepsis from Covid - LFTs Improving, will continue to trend - Check hepatitis panel #FEN - No standing fluids - Routing electrolyte monitoring, notably K - NPO #PPx -Therapeutic: Lovenox #Disposition - Patient admitted to the ICU, not on a vent currently. Visit type - Emergency Visit Emergency Visit: Yes ED Registration Date: 12/05/19 Care time: The patient presented to the Emergency Department on the above date and was hospitalized for further evaluation of their emergent condition. - New Patient This patient is new to me today: Yes Date on this admission: 12/05/19 - Critical Care Critical Care patient: Yes Total Critical Care Time (in minutes): 60 Critical Care Statement: The care of this patient involved high complexity decision making to prevent further life threatening deterioration of the patient's condition and/or to evaluate & treat vital organ system(s) failure or risk of failure. ATTENDING PHYSICIAN STATEMENT I saw and evaluated the patient. I reviewed the resident's note and discussed the case with the resident. I agree with the resident's findings and plan as documented. SUBJECTIVE: OBJECTIVE: ASSESSMENT AND PLAN:
[2019-12-05 13:06] LABS: BILIRUBIN,TOTAL 0.3 mg/dL (0.2-1); BLOOD UREA NITROGEN 16.8 mg/dL (7-18); CALCIUM 8.2 mg/dL (8.5-10.1); CREATININE 0.8 mg/dL (0.55-1.3); MAGNESIUM 2.6 mg/dL (1.8-2.4); POTASSIUM 4.4 mmol/L (3.5-5.1); TOT PROT 7.2 g/dl (6.4-8.2)
[2019-12-05] MEDS ORDERED: ALBUTEROL SO4 HFA INHALER IH PRN (14:46)
[2019-12-05] MEDS ORDERED: ACETAMINOPHEN 1000 MG/100 ML VIAL (NON FORMULARY) IVPB PRN (14:46)
--- NOTE | 2019-12-05 15:03 | PN ---
Teaching Attending Note Name of Resident: Vicente Gary ATTENDING PHYSICIAN STATEMENT I saw and evaluated the patient. I reviewed the resident's note and discussed the case with the resident. I agree with the resident's findings and plan as documented. SUBJECTIVE: Patient seen and examined in the ER. 49 F, DM, HTN, and history of gastroparesi s. Admitted via the ER due to progressive SOB for the past few days. She reports that last Wednesday she had a job interview and then felt fatigue afterwards. Progressive SOB with pleuritic type CP, decreased appetite, decreased PO intake, and subjective fevers. Reports change in sense of smell. She reports not taking her insulin for the past few days. Denies travel history or sick contacts. Lives with her and 2 teenage children who have all been apparently socially isolating. Intake & Output 12/02/19 12/03/19 12/04/19 12/05/19 23:59 23:59 23:59 23:59 Intake Total 2400 Balance 2400 Weight 140 lb Last Vital Signs Temp Pulse Resp BP Pulse Ox 98.2 F 92 H 32 H 152/92 100 12/05/19 14:00 12/05/19 14:00 12/05/19 14:00 12/05/19 14:00 12/05/19 12:29 Active Medications Chlorhexidine Gluconate (Hibiclens For Decolonization -) 1 applic TP HS [facility] Insulin Aspart (Novolog Vial Sliding Scale -) 1 vial SQ ACHS [facility]; Protocol Mupirocin (Bactroban Ointment (For Decolonization) -) 1 applic NS BID [facility] Stop: 12/10/19 21:59 GENERAL: A&Ox3, Mildly tachypneic on 100% NRBM HEAD: NCAT EYES: PERRL, EOMI ENT: dry mucous membranes. NECK: No JVD LUNGS: Diminished breath sounds at the bases, Poor inspiratory effort HEART: Tachycardic, S1 S2 ABDOMEN: Soft, mildly tender to palpation, not distended, + bowel sounds, no guarding, no rebound MUSCULOSKELETAL: No CVA tenderness. EXTREMITIES: No peripheral edema. NEUROLOGICAL: Non-focal PSYCHIATRIC: Cooperative. SKIN: Warm, dry Laboratory Last Values WBC 3.0 K/mm3 (4.0-10.0) L 12/05/19 06:15 RBC 4.78 M/mm3 (3.60-5.2) 12/05/19 06:15 Hgb 12.6 GM/dL (10.7-15.3) 12/05/19 06:15 Hct 39.0 % (32.4-45.2) D 12/05/19 06:15 MCV 81.6 fl (80-96) 12/05/19 06:15 MCH 26.3 pg (25.7-33.7) 12/05/19 06:15 MCHC 32.2 g/dl (32.0-36.0) 12/05/19 06:15 RDW 14.5 % (11.6-15.6) 12/05/19 06:15 Plt Count 265 K/MM3 (134-434) D 12/05/19 06:15 MPV 8.6 fl (7.5-11.1) D 12/05/19 06:15 Absolute Neuts (auto) 2.1 K/mm3 (1.5-8.0) 12/05/19 06:15 Neutrophils % 71.9 % (42.8-82.8) D 12/05/19 06:15 Lymphocytes % 17.3 % (8-40) D 12/05/19 06:15 Monocytes % 10.6 % (3.8-10.2) H 12/05/19 06:15 Eosinophils % 0.0 % (0-4.5) D 12/05/19 06:15 Basophils % 0.2 % (0-2.0) 12/05/19 06:15 Nucleated RBC % 0 % (0-0) 12/05/19 06:15 PT with INR 10.80 SEC (9.7-13.0) 12/05/19 06:15 INR 0.92 (0.83-1.09) 12/05/19 06:15 PTT (Actin FS) 29.2 SECONDS (25.2-36.5) 12/05/19 06:15 D-Dimer 411 ng/ml (0-500) 12/05/19 07:55 Sodium 136 mmol/L (136-145) 12/05/19 06:15 Potassium 4.8 mmol/L (3.5-5.1) 12/05/19 06:15 Chloride 102 mmol/L (98-107) 12/05/19 06:15 Carbon Dioxide 18 mmol/L (21-32) L 12/05/19 06:15 Anion Gap 17 MMOL/L (8-16) H 12/05/19 06:15 BUN 20.1 mg/dL (7-18) H 12/05/19 06:15 Creatinine 1.1 mg/dL (0.55-1.3) 12/05/19 06:15 Est GFR (CKD-EPI)AfAm 68.75 12/05/19 06:15 Est GFR (CKD-EPI)NonAf 59.32 12/05/19 06:15 POC Glucometer 457 UNITS (80-120) 12/05/19 09:29 Random Glucose 400 mg/dL (74-106) H 12/05/19 06:15 Lactic Acid 2.6 mmol/L (0.4-2.0) H* 12/05/19 05:33 Calcium 8.9 mg/dL (8.5-10.1) 12/05/19 06:15 Ferritin 319.1 ng/ml (8-388) 12/05/19 06:15 Total Bilirubin 0.3 mg/dL (0.2-1) 12/05/19 06:15 AST 114 U/L (15-37) H 12/05/19 06:15 ALT 86 U/L (13-61) H 12/05/19 06:15 Alkaline Phosphatase 148 U/L (45-117) H 12/05/19 06:15 LD Total 344 U/L (84-246) H 12/05/19 06:15 Troponin I < 0.02 ng/ml (0.00-0.05) 12/05/19 06:15 C-Reactive Protein 12.0 MG/DL (0.00-0.3) H 12/05/19 06:15 Total Protein 7.7 g/dl (6.4-8.2) 12/05/19 06:15 Albumin 2.3 g/dl (3.4-5.0) L 12/05/19 06:15 Beta HCG, Quant Cancelled 12/05/19 06:15 Serum , Qual Negative 12/05/19 08:00 Urine Color Yellow 12/05/19 05:49 Urine Appearance Cloudy 12/05/19 05:49 Urine pH 5.0 (5.0-8.0) 12/05/19 05:49 Ur Specific [place] 1.029 (1.010-1.035) 12/05/19 05:49 Urine Protein 3+ (NEGATIVE) H 12/05/19 05:49 Urine Glucose (UA) 3+ (NEGATIVE) H 12/05/19 05:49 Urine Ketones 1+ (NEGATIVE) H 12/05/19 05:49 Urine Blood 1+ (NEGATIVE) H 12/05/19 05:49 Urine Nitrite Negative (NEGATIVE) 12/05/19 05:49 Urine Bilirubin Negative (NEGATIVE) 12/05/19 05:49 Urine Urobilinogen 0.2 mg/dL (0.2-1.0) 12/05/19 05:49 Ur Leukocyte Esterase Trace (NEGATIVE) 12/05/19 05:49 Urine WBC (Auto) 598 /uL (0-25.8) 12/05/19 05:49 Urine RBC (Auto) 13 /uL (0-23.9) 12/05/19 05:49 Urine Casts (Auto) 27 /uL (0-3.1) 12/05/19 05:49 U Epithel Cells (Auto) >36 /uL (0-25.1) 12/05/19 05:49 Urine Bacteria (Auto) >10,000 /uL (0-1359) 12/05/19 05:49 ASSESSMENT/PLAN: High clinical and Radiographic suspicion for COVID19 infection with Capillary Leak Syndrome / COVID19 Pneumonitis DM Hyperglycemia HTN Gastroparesis Sepsis PE ruled out Dexamethasone 6mg OD Follow Inflammatory markers Check Sputum Ross-culture Judicious IVF Tight glycemic control with SQ insulin for now Strict I & O Check urinary antigen Full AC Strict Isolation and usage of Full PPE Vit C Vitamin D Zinc No nebulized treatments Supplemental O2 to maintain saturation Follow Transaminitis I discussed the Risks and the Benefits of the use of Remdesivir. I have a very high clinical suspicion of COVID19 infection and for the possibility of clinical decompensation. The patient was given information about Remdesivir and about the potential risks and the benefits. The patient has agreed for Remdesivir therapy. Close ICU monitoring Dr Rivas Critical care time spent in reviewing chart, evaluating patient and formulating plan - 36 minutes.
[2019-12-05] MEDS ORDERED: ENOXAPARIN NA (PORCINE) 80 MG/0.8 ML DISP.SYRIN SQ ONE (15:29)
--- NOTE | 2019-12-05 15:58 | PN ---
Progress Note (short form) - Note Progress Note: ID CONSULT DICTATED PROBABLE COVID-19 PNEUMONITIS ?SUPERIMPOSED BACTERIAL PNEUMONIA UTI LEUKOPENIA UNCONTROLLED DIABETES MELLITUS AWAIT COVID-19 PCR, CULTURES AGREE WITH REMDESIVIR EMPIRIC CEFTRIAXONE/ ZITHROMAX
[2019-12-05] MEDS ORDERED: REMDESIVIR 200 MG in SODIUM CHLORIDE 210 ML IVPB ONE (16:00)
[2019-12-05] MEDS: CEFTRIAXONE 2 GM in DEXTROSE 5%-WATER 100 ML IVPB SCH (17:00)
[2019-12-05] MEDS ORDERED: DEXTROSE 5%-WATER 100 ML IVPB ONE (17:00)
--- NOTE | 2019-12-05 17:14 | CONS ---
DATE OF CONSULTATION: DATE OF DICTATION: 12/05/2019 INFECTIOUS DISEASE CONSULTATION HISTORY OF PRESENT ILLNESS: The patient is a 49-year-old diabetic female who is admitted for probable COVID-19 pneumonitis. The patient states that she was well until approximately 8 days ago. She had attended a job interview. Shortly after that, she developed profound fatigue, generalized weakness, malaise, cough, and chills. She also experienced some back pain and dysuria. She presented to the emergency room, where she was noted to be hypoxemic. A CAT scan of the chest was negative for pulmonary embolism; however, showed extensive bilateral pulmonary consolidations with ground-glass appearance and peripheral distribution. Patient required placement on a nonrebreather mask. She appears comfortable at the present time on the nonrebreather; however, when taken off, she quickly desaturates to the low 80s. The patient lives at home. She states that she has been remaining at home with the exception of a pending job interview. She denies any ill contacts. She does have 2 teenage children. She denies any ill contacts. She has not traveled. PAST MEDICAL HISTORY: Positive for diabetes mellitus, hypertension. ALLERGIES: PENICILLIN. SOCIAL HISTORY: As per HPI. The patient is originally from [facility], has been living in the [facility] for the past 40 years . Denies recent travel. Denies tobacco use. LABORATORY DATA: White count 3.0, 71 neutrophils, 17 lymphocytes, 10 monocytes. Hematocrit 39.0, platelet count 265. Creatinine 0.8, lactic acid 1.5, glucose 359. Urinalysis 598 white cells. Total bilirubin 0.3, alkaline phosphatase 131. AST 83, ALT 72. D-dimer 361. C-reactive protein 12.0, ferritin 319, LDH 344. PHYSICAL EXAMINATION: General: On exam, she is awake, obese, in no acute distress. She has a nonrebreather mask on. She appears comfortable at rest. She is able to speak in complete sentences. Vital signs: Temperature 99.2, T-max 102.4, blood pressure 152/92, pulse 92, respirations 30 per minute. HEENT: Sclerae anicteric. Cardiovascular: Heart sounds S1, S2. Lungs: Diminished breath sounds bilaterally. Abdomen: Obese. Soft, nontender. Extremities: Negative for edema. Negative Homans sign. IMPRESSION: 1. Probable COVID-19 pneumonitis. 2. Possible superimposed bacterial pneumonia. 3 . Urinary tract infection. 4. Uncontrolled diabetes mellitus. 5. Leukopenia, likely secondary to viral infection. Clinical presentation and CAT scan findings highly suggestive of COVID-19 pneumonitis. Agree with Remdesivir. Await PCR. Obtain cultures. Will empirically treat for possible superimposed bacterial pneumonia with Zithromax and ceftriaxone. Patient is a candidate for convalescent plasma and assuming her PCR comes back positive, airborne precautions. Thank you for the kind referral. YOLIS SOLORZANO M.D. [id number]
[2019-12-05] MEDS: CHOLECALCIFEROL (VIT D3) 1,000 UNIT (25 MCG) TABLET PO SCH (17:31)
[2019-12-05] MEDS: PANTOPRAZOLE 20 MG TABLET PO SCH (17:31)
[2019-12-05] MEDS: AZITHROMYCIN IVPB 500 MG/250 ML BAG IVPB SCH (17:32)
[2019-12-05] MEDS: INSULIN SLIDING SCALE (NOVOLOG) 1 VIAL SQ SCH (17:34)
[2019-12-05 20:08] LABS: BLOOD UREA NITROGEN 16.2 mg/dL (7-18); CALCIUM 8.4 mg/dL (8.5-10.1); CREATININE 0.8 mg/dL (0.55-1.3); POTASSIUM 4.7 mmol/L (3.5-5.1)
[2019-12-05] MEDS ORDERED: PT OWN MED DRAWER 7, Y5N ONE (21:57)
[2019-12-05] MEDS ORDERED: ENOXAPARIN NA (PORCINE) 40 MG/0.4 ML DISP.SYRIN SQ SCH (22:00)
[2019-12-06] MEDS: ZINC SULFATE 220 MG CAPSULE (FP) PO SCH ×3 (00:25→23:09)
[2019-12-06] MEDS: GABAPENTIN 300 MG CAPSULE PO SCH ×3 (00:27→23:09)
[2019-12-06] MEDS: ASCORBIC ACID 250 MG TABLET (FP) PO SCH ×3 (00:27→23:09)
[2019-12-06] MEDS: CHLORHEXIDINE GLUCONATE 4% CLEANSER FOR DECOLONIZATION TP SCH ×2 (00:28→23:08)
[2019-12-06] MEDS: MUPIROCIN 2% TOPICAL OINTMENT FOR DECOLONIZATION NS SCH ×3 (00:28→23:08)
[2019-12-06] MEDS: INSULIN SLIDING SCALE (NOVOLOG) 1 VIAL SQ SCH ×4 (04:35→17:25)
[2019-12-06] MEDS ORDERED: ENOXAPARIN NA (PORCINE) 40 MG/0.4 ML DISP.SYRIN SQ SCH ×2 (07:00→10:00)
[2019-12-06 07:21] LABS: BASO % 0.2 % (0-2.0); HEMATOCRIT 34.2 % (32.4-45.2); HEMOGLOBIN 11.3 GM/dL (10.7-15.3); MCH 26.4 pg (25.7-33.7); MEAN PLT VOLUME 8.5 fl (7.5-11.1); MONO % 8.9 % (3.8-10.2); NEUT % 77.9 % (42.8-82.8); PLATELET COUNT 288 K/MM3 (134-434); RBC 4.27 M/mm3 (3.60-5.2); RDW 14.5 % (11.6-15.6); WHITE BLOOD COUNT 5.2 K/mm3 (4.0-10.0)
[2019-12-06 07:49] LABS: ALBUMIN 1.7 g/dl (3.4-5.0); BILIRUBIN,TOTAL 0.3 mg/dL (0.2-1); BLOOD UREA NITROGEN 19.1 mg/dL (7-18); CALCIUM 8.4 mg/dL (8.5-10.1); CREATININE 0.6 mg/dL (0.55-1.3); MAGNESIUM 2.6 mg/dL (1.8-2.4); PHOSPHOROUS 2.8 mg/dL (2.5-4.9); TOT PROT 6.5 g/dl (6.4-8.2)
[2019-12-06] MEDS ORDERED: ENOXAPARIN NA (PORCINE) 80 MG/0.8 ML DISP.SYRIN SQ SCH (08:00)
[2019-12-06] MEDS ORDERED: DEXTROSE 5%-WATER 100 ML IVPB ONE (08:42)
[2019-12-06] MEDS ORDERED: PT OWN MED DRAWER 7, Y5N ONE ×2 (08:44→22:29)
[2019-12-06] MEDS: CEFTRIAXONE 2 GM in DEXTROSE 5%-WATER 100 ML IVPB SCH (09:06)
[2019-12-06] MEDS: PANTOPRAZOLE 20 MG TABLET PO SCH (09:07)
[2019-12-06] MEDS: AZITHROMYCIN IVPB 500 MG/250 ML BAG IVPB SCH (09:07)
[2019-12-06] MEDS: CHOLECALCIFEROL (VIT D3) 1,000 UNIT (25 MCG) TABLET PO SCH (09:12)
[2019-12-06] MEDS: ENOXAPARIN NA (PORCINE) 80 MG/0.8 ML DISP.SYRIN SQ SCH ×2 (09:13→23:08)
[2019-12-06] MEDS: REMDESIVIR 100 MG in SODIUM CHLORIDE 230 ML IVPB SCH (09:20)
--- NOTE | 2019-12-06 11:25 | PN ---
Progress Note (short form) - Note Progress Note: Transfer note: Subjective: 49 y/o female with PMH DM and HTN presented to ED with SOB. Pt was returning home from a job interview and subsequently felt fatigued. She had decreased appetite, decreased PO intake, sore throat, and subjective fevers. As a results of her fatigue, pt was not able to take insulin for the 2-3 days. Pt experienced difficulty breathing and pleuritic chest pain. Pt tried to use Tylenol with minimal relief. Pt called her PCP, who told her to go to the ED. Pt also complained of associated loss of taste, 3-4 non-bloody loose bowel movements. Objective: Last Vital Signs Temp Pulse Resp BP Pulse Ox 97.3 F L 80 33 H 145/82 100 12/06/19 06:00 12/06/19 08:00 12/06/19 08:00 12/06/19 08:00 12/06/19 08:00 Physical exam as per Dr. Otoole, due to limited PPE. GENERAL: The patient is awake, alert, and fully oriented, in no acute distress. HEENT: NCAT, EOMI. On non-rebreather mask. LUNGS: scattered rales HEART: regular rate and rhythm, no murmurs. ABDOMEN: soft, nontender. A/P: 49 y/o with PMH DM, HTN, cholecystectomy, Gastroparesis presented to the ED with SOB, Subjective fevers, diarrhea, polyuria, polydipsia, dysuria and loss of taste. EMS reported her oxygen Sat was 80% upon their arrival. Patient met criteria for sepsis protocol, with Chest CTA findings suggestive of Covid-19 Pneumonitis. Workup also met criteria for mild DKA. Pt was admitted to ICU due to COVID related acute respiratory distress and mild DKA. Pt was Covid serology positive as of 12/05 and SARS Covid-19 serology negative.Pt received IVF, Decadron, Lovenox,Vit C/D/zinc, Ventolin, remdesivir, rocephin, and zithromax. Mild DKA resolved, anion gap closed and lactic acid was in normal range. Pt was weaned off non-rebreather mask and placed on ventimask at 50%, pt was saturating well at 100%. Pt is hemodynamically stable and is medically optimized for transfer. #Cardio HTN -Monitor BP and maintain MAP>65. #Pulmonary COVID pneumonitis - Continue Decadron 6 mg IVPush Daily - Continue Lovenox 80 mg SQ BID - Continue Vit C/D/zinc - Continue Ventolin hfa 2 puffs IH Q4 PRN - Supplemental O2 to maintain SpO2 >92%; Weaned to venti mask at 50%. Tolerating well. - Trend inflammatory markers - Continue 100mg Remdesevir #ID COVID19 pneumonitis VS UTI - Rocephin and Zithromax empirically for suspected bacterial superinfection - Follow blood Cx, negative 24 hrs - Urine Cx growing lactose fermenting neg bacilli, along with UTI symptoms, treating with broad spectrum - Urine Legionella/Pneumoniae Ag neg - ID consulted. Recommended continue remdesivir, rocephin and zithromax. #Endo Mild DKA, improved DM - Anion gap closed, lactic acid within normal range, bicarbonate levels within normal range - ISS + BGM ACHS -Continue gabapentin for neuropathy #GI/Hepatology Transaminitis in the setting of [place] vs sepsis from Covid, improved - LFTs improved - Hepatitis panel pending #FEN - No standing fluids - Monitor electrolytes and replete as necessary - Diabetic/sodium diet #PPx - DVT: Lovenox 80 mg SQ BID - Pantoprazole 20 mg Daily #Disposition Transfer
--- NOTE | 2019-12-06 11:42 | PN ---
Teaching Attending Note Name of Resident: Sandi Jaimes ATTENDING PHYSICIAN STATEMENT I saw and evaluated the patient. I reviewed the resident's note and discussed the case with the resident. I agree with the resident's findings and plan as documented. SUBJECTIVE: Pt seen and examined in the ICU. Remains on NRB saturating well. States breathi ng is improving. COVID19 serology positive. Declining convalescent plasma at this time. OBJECTIVE: Vital Signs Period Temp Pulse Resp BP Sys/Aguilar Pulse Ox Last 24 Hr 95.2 F-99.2 F 75-102 18-35 133-162/80-102 97-100 Intake & Output 12/03/19 12/04/19 12/05/19 12/06/19 23:59 23:59 23:59 23:59 Intake Total 3250 100 Output Total 500 Balance 2750 100 Weight 80 kg Gen: NAD on NRB Heart: RRR Lung: scattered rales Abd: soft, nontender Ext: no edema CBC, BMP 12/06/19 06:02 12/06/19 06:00 Active Medications Acetaminophen (Ofirmev Injection -) 1,000 mg IVPB Q6H PRN PRN Reason: FEVER Stop: 12/06/19 14:46 Albuterol Sulfate (Ventolin Hfa Inhaler -) 2 puff IH Q4H PRN PRN Reason: SHORT OF BREATH/WHEEZING Ascorbic Acid (Vitamin C -) 250 mg PO BID [facility] Last Admin: 12/06/19 09:07 Dose: 250 mg Documented by: Chlorhexidine Gluconate (Hibiclens For Decolonization -) 1 applic TP HS [facility] Last Admin: 12/06/19 00:28 Dose: 1 applic Documented by: Cholecalciferol (Vitamin D3 -) 1,000 unit PO DAILY [facility] Last Admin: 12/06/19 09:12 Dose: 1,000 unit Documented by: Enoxaparin Sodium (Lovenox -) 80 mg SQ BID [facility] Last Admin: 12/06/19 09:13 Dose: 80 mg Documented by: Gabapentin (Neurontin -) 900 mg PO BID [facility] Last Admin: 12/06/19 09:07 Dose: 900 mg Documented by: Non-Formulary Medication 100 (mg/ Sodium Chloride) 250 mls @ 250 mls/hr IVPB DAILY [facility] Stop: 12/09/19 10:59 Last Admin: 12/06/19 09:20 Dose: 250 mls/hr Documented by: Azithromycin (Zithromax 500mg Ivpb (Pre-Docked)) 500 mg in 250 mls @ 250 mls/hr IVPB DAILY [facility] Last Admin: 12/06/19 09:07 Dose: 250 mls/hr Documented by: Ceftriaxone Sodium 2 gm/ (Dextrose) 100 mls @ 200 mls/hr IVPB DAILY [facility]; Protocol Last Admin: 12/06/19 09:06 Dose: 200 mls/hr Documented by: Insulin Aspart (Novolog Vial Sliding Scale -) 1 vial SQ ACHS [facility]; Protocol Last Admin: 12/06/19 09:16 Dose: 4 units Documented by: Mupirocin (Bactroban Ointment (For Decolonization) -) 1 applic NS BID [facility] Stop: 12/10/19 21:59 Last Admin: 12/06/19 09:12 Dose: 1 applic Documented by: Pantoprazole Sodium (Protonix -) 20 mg PO DAILY [facility] Last Admin: 12/06/19 09:07 Dose: 20 mg Documented by: Zinc Sulfate (Orazinc -) 220 mg PO BID [facility] Last Admin: 12/06/19 09:07 Dose: 220 mg Documented by: ASSESSMENT AND PLAN: COVID19 Pneumonitis DKA resolved UTI Sepsis Lactic Acidosis HTN DM - continue remdesivir - continue antibiotics - f/u cultures - glucose control - continue decadron - taper Fio2 to keep SpO2 >90%, transitioned to 50% ventimask - trend inflammatory markers - DVT prophylaxis
--- NOTE | 2019-12-06 13:37 | PN ---
Progress Note, Physician History of Present Illness: COVID-19+ ON REMDESIVIR IMPROVED AWAKE , ALERT NOW ON 50% VM BREATHING NON-LABORED DENIES DYSPNEA/ CHEST PAIN/ COUGH NO FEVER WBC IMPROVED URINE C/S LF BC NO GROWTH LEGIONELLA AG (-) - Current Medication List Current Medications: Active Medications Acetaminophen (Ofirmev Injection -) 1,000 mg IVPB Q6H PRN PRN Reason: FEVER Stop: 12/06/19 14:46 Albuterol Sulfate (Ventolin Hfa Inhaler -) 2 puff IH Q4H PRN PRN Reason: SHORT OF BREATH/WHEEZING Ascorbic Acid (Vitamin C -) 250 mg PO BID [facility] Last Admin: 12/06/19 09:07 Dose: 250 mg Documented by: Chlorhexidine Gluconate (Hibiclens For Decolonization -) 1 applic TP HS [facility] Last Admin: 12/06/19 00:28 Dose: 1 applic Documented by: Cholecalciferol (Vitamin D3 -) 1,000 unit PO DAILY [facility] Last Admin: 12/06/19 09:12 Dose: 1,000 unit Documented by: Enoxaparin Sodium (Lovenox -) 80 mg SQ BID [facility] Last Admin: 12/06/19 09:13 Dose: 80 mg Documented by: Gabapentin (Neurontin -) 900 mg PO BID [facility] Last Admin: 12/06/19 09:07 Dose: 900 mg Documented by: Non-Formulary Medication 100 (mg/ Sodium Chloride) 250 mls @ 250 mls/hr IVPB DAILY [facility] Stop: 12/09/19 10:59 Last Admin: 12/06/19 09:20 Dose: 250 mls/hr Documented by: Azithromycin (Zithromax 500mg Ivpb (Pre-Docked)) 500 mg in 250 mls @ 250 mls/hr IVPB DAILY [facility] Last Admin: 12/06/19 09:07 Dose: 250 mls/hr Documented by: Ceftriaxone Sodium 2 gm/ (Dextrose) 100 mls @ 200 mls/hr IVPB DAILY [facility]; Protocol Last Admin: 12/06/19 09:06 Dose: 200 mls/hr Documented by: Insulin Aspart (Novolog Vial Sliding Scale -) 1 vial SQ ACHS [facility]; Protocol Last Admin: 12/06/19 11:50 Dose: 6 units Documented by: Mupirocin (Bactroban Ointment (For Decolonization) -) 1 applic NS BID [facility] Stop: 12/10/19 21:59 Last Admin: 12/06/19 09:12 Dose: 1 applic Documented by: Pantoprazole Sodium (Protonix -) 20 mg PO DAILY [facility] Last Admin: 12/06/19 09:07 Dose: 20 mg Documented by: Zinc Sulfate (Orazinc -) 220 mg PO BID [facility] Last Admin: 12/06/19 09:07 Dose: 220 mg Documented by: - Objective Vital Signs: Vital Signs Temperature 98.2 F 12/06/19 10:00 Pulse Rate 97 H 12/06/19 12:00 Respiratory Rate 28 H 12/06/19 12:00 Blood Pressure 134/81 12/06/19 12:00 O2 Sat by Pulse Oximetry (%) 95 12/06/19 12:00 Constitutional: Yes: No Distress Eyes: Yes: Conjunctiva Clear Cardiovascular: Yes: Regular Rate and Rhythm, S1, S2 Respiratory: Yes: Diminished Gastrointestinal: Yes: Normal Bowel Sounds, Soft, Abdomen, Obese. No: Tend erness Edema: No Labs: CBC, BMP 12/06/19 06:02 12/06/19 06:00 INR, PTT INR 0.92 (0.83-1.09) 12/05/19 06:15 Assessment/Plan COVID-19 PNEUMONITIS ? SUPERIMPOSED BACTERIAL PNEUMONIA UTI UNCONTROLLED DM CONTINUE REMDESIVIR CEFTRIAXONE/ ZITHROMAX
--- NOTE | 2019-12-06 14:39 | PN ---
Physical Exam: SUBJECTIVE: Patient seen and examined in the ICU. Pt stated that her breathing has improved. Reported 1 episode of large loose bowel movement overnight. Denies shortness of breath. OBJECTIVE: Vital Signs Period Temp Pulse Resp BP Sys/Aguilar Pulse Ox Last 24 Hr 95.2 F-98.6 F 75-97 18-35 133-160/80-94 95-100 Physical exam as per Dr. Otoole, due to limited PPE. GENERAL: The patient is awake, alert, and fully oriented, in no acute distress. HEENT: NCAT, EOMI. On non-rebreather mask. LUNGS: scattered rales HEART: regular rate and rhythm, no murmurs. ABDOMEN: soft, nontender. Laboratory Last Values WBC 5.2 K/mm3 (4.0-10.0) 12/06/19 06:02 RBC 4.27 M/mm3 (3.60-5.2) 12/06/19 06:02 Hgb 11.3 GM/dL (10.7-15.3) 12/06/19 06:02 Hct 34.2 % (32.4-45.2) 12/06/19 06:02 MCV 80.0 fl (80-96) 12/06/19 06:02 MCH 26.4 pg (25.7-33.7) 12/06/19 06:02 MCHC 33.0 g/dl (32.0-36.0) 12/06/19 06:02 RDW 14.5 % (11.6-15.6) 12/06/19 06:02 Plt Count 288 K/MM3 (134-434) 12/06/19 06:02 MPV 8.5 fl (7.5-11.1) 12/06/19 06:02 Absolute Neuts (auto) 4.0 K/mm3 (1.5-8.0) 12/06/19 06:02 Neutrophils % 77.9 % (42.8-82.8) 12/06/19 06:02 Lymphocytes % 13.0 % (8-40) D 12/06/19 06:02 Monocytes % 8.9 % (3.8-10.2) 12/06/19 06:02 Eosinophils % 0.0 % (0-4.5) 12/06/19 06:02 Basophils % 0.2 % (0-2.0) 12/06/19 06:02 Nucleated RBC % 0 % (0-0) 12/06/19 06:02 PT with INR 10.80 SEC (9.7-13.0) 12/05/19 06:15 INR 0.92 (0.83-1.09) 12/05/19 06:15 PTT (Actin FS) 29.2 SECONDS (25.2-36.5) 12/05/19 06:15 D-Dimer 361 ng/ml (0-500) 12/05/19 11:05 Anticoagulation Therapy Cancelled 12/05/19 12:18 Puncture Site Cancelled 12/05/19 12:18 Patient Temperature Cancelled 12/05/19 12:18 ABG pH Cancelled 12/05/19 12:18 ABG pCO2 Cancelled 12/05/19 12:18 ABG pO2 Cancelled 12/05/19 12:18 ABG HCO3 Cancelled 12/05/19 12:18 ABG O2 Sat (Measured) Cancelled 12/05/19 12:18 ABG O2 Content Cancelled 12/05/19 12:18 ABG Base Excess Cancelled 12/05/19 12:18 John Paul Test Cancelled 12/05/19 12:18 Patient On Oxygen Cancelled 12/05/19 12:18 O2 Delivery Device Cancelled 12/05/19 12:18 Oxygen Flow Rate Cancelled 12/05/19 12:18 Vent Mode Cancelled 12/05/19 12:18 Vent Rate Cancelled 12/05/19 12:18 Mechanical Rate Cancelled 12/05/19 12:18 PEEP Cancelled 12/05/19 12:18 Pressure Support Vent Cancelled 12/05/19 12:18 Sodium 140 mmol/L (136-145) 12/06/19 06:00 Potassium 4.0 mmol/L (3.5-5.1) 12/06/19 06:00 Chloride 110 mmol/L (98-107) H 12/06/19 06:00 Carbon Dioxide 22 mmol/L (21-32) 12/06/19 06:00 Anion Gap 9 MMOL/L (8-16) 12/06/19 06:00 BUN 19.1 mg/dL (7-18) H 12/06/19 06:00 Creatinine 0.6 mg/dL (0.55-1.3) 12/06/19 06:00 Est GFR (CKD-EPI)AfAm 124.92 12/06/19 06:00 Est GFR (CKD-EPI)NonAf 107.78 12/06/19 06:00 POC Glucometer 279 UNITS (80-120) 12/06/19 11:44 Random Glucose 254 mg/dL (74-106) H 12/06/19 06:00 Hemoglobin A1c % < 3.5 % (4.2-6.3) L 12/05/19 12:01 Lactic Acid 0.9 mmol/L (0.4-2.0) 12/05/19 15:14 Calcium 8.4 mg/dL (8.5-10.1) L 12/06/19 06:00 Phosphorus 2.8 mg/dL (2.5-4.9) 12/06/19 06:00 Magnesium 2.6 mg/dL (1.8-2.4) H 12/06/19 06:00 Ferritin 319.1 ng/ml (8-388) 12/05/19 06:15 Total Bilirubin 0.3 mg/dL (0.2-1) 12/06/19 06:00 AST 66 U/L (15-37) H 12/06/19 06:00 ALT 59 U/L (13-61) 12/06/19 06:00 Alkaline Phosphatase 113 U/L (45-117) 12/06/19 06:00 LD Total 344 U/L (84-246) H 12/05/19 06:15 Troponin I < 0.02 ng/ml (0.00-0.05) 12/05/19 06:15 C-Reactive Protein 12.0 MG/DL (0.00-0.3) H 12/05/19 06:15 Total Protein 6.5 g/dl (6.4-8.2) 12/06/19 06:00 Albumin 1.7 g/dl (3.4-5.0) L 12/06/19 06:00 Beta-Hydroxybutyrate 29.7 mg/dL (0.2-2.8) H 12/05/19 12:01 Beta HCG, Quant Cancelled 12/05/19 06:15 Serum , Qual Negative 12/05/19 08:00 Urine Color Yellow 12/05/19 05:49 Urine Appearance Cloudy 12/05/19 05:49 Urine pH 5.0 (5.0-8.0) 12/05/19 05:49 Ur Specific [place] 1.029 (1.010-1.035) 12/05/19 05:49 Urine Protein 3+ (NEGATIVE) H 12/05/19 05:49 Urine Glucose (UA) 3+ (NEGATIVE) H 12/05/19 05:49 Urine Ketones 1+ (NEGATIVE) H 12/05/19 05:49 Urine Blood 1+ (NEGATIVE) H 12/05/19 05:49 Urine Nitrite Negative (NEGATIVE) 12/05/19 05:49 Urine Bilirubin Negative (NEGATIVE) 12/05/19 05:49 Urine Urobilinogen 0.2 mg/dL (0.2-1.0) 12/05/19 05:49 Ur Leukocyte Esterase Trace (NEGATIVE) 12/05/19 05:49 Urine WBC (Auto) 598 /uL (0-25.8) 12/05/19 05:49 Urine RBC (Auto) 13 /uL (0-23.9) 12/05/19 05:49 Urine Casts (Auto) 27 /uL (0-3.1) 12/05/19 05:49 U Epithel Cells (Auto) >36 /uL (0-25.1) 12/05/19 05:49 Urine Bacteria (Auto) >10,000 /uL (0-1359) 12/05/19 05:49 COVID-19 (BULMARO) Detected (Not Detected) H 12/05/19 06:15 SARS-CoV-2 Ab Interp Non-reactive (NONREACTIVE) 12/05/19 11:05 Active Medications Acetaminophen (Ofirmev Injection -) 1,000 mg IVPB Q6H PRN PRN Reason: FEVER Stop: 12/06/19 14:46 Albuterol Sulfate (Ventolin Hfa Inhaler -) 2 puff IH Q4H PRN PRN Reason: SHORT OF BREATH/WHEEZING Ascorbic Acid (Vitamin C -) 250 mg PO BID [facility] Last Admin: 12/06/19 09:07 Dose: 250 mg Documented by: Chlorhexidine Gluconate (Hibiclens For Decolonization -) 1 applic TP HS [facility] Last Admin: 12/06/19 00:28 Dose: 1 applic Documented by: Cholecalciferol (Vitamin D3 -) 1,000 unit PO DAILY [facility] Last Admin: 12/06/19 09:12 Dose: 1,000 unit Documented by: Enoxaparin Sodium (Lovenox -) 80 mg SQ BID [facility] Last Admin: 12/06/19 09:13 Dose: 80 mg Documented by: Gabapentin (Neurontin -) 900 mg PO BID [facility] Last Admin: 12/06/19 09:07 Dose: 900 mg Documented by: Non-Formulary Medication 100 (mg/ Sodium Chloride) 250 mls @ 250 mls/hr IVPB DAILY [facility] Stop: 12/09/19 10:59 Last Admin: 12/06/19 09:20 Dose: 250 mls/hr Documented by: Azithromycin (Zithromax 500mg Ivpb (Pre-Docked)) 500 mg in 250 mls @ 250 mls/hr IVPB DAILY [facility] Last Admin: 12/06/19 09:07 Dose: 250 mls/hr Documented by: Ceftriaxone Sodium 2 gm/ (Dextrose) 100 mls @ 200 mls/hr IVPB DAILY [facility]; Protocol Last Admin: 12/06/19 09:06 Dose: 200 mls/hr Documented by: Insulin Aspart (Novolog Vial Sliding Scale -) 1 vial SQ ACHS [facility]; Protocol Last Admin: 12/06/19 11:50 Dose: 6 units Documented by: Mupirocin (Bactroban Ointment (For Decolonization) -) 1 applic NS BID [facility] Stop: 12/10/19 21:59 Last Admin: 12/06/19 09:12 Dose: 1 applic Documented by: Pantoprazole Sodium (Protonix -) 20 mg PO DAILY [facility] Last Admin: 12/06/19 09:07 Dose: 20 mg Documented by: Zinc Sulfate (Orazinc -) 220 mg PO BID [facility] Last Admin: 12/06/19 09:07 Dose: 220 mg Documented by: ASSESSMENT/PLAN: 49 y/o with PMH DM, HTN, cholecystectomy, Gastroparesis presented to the ED with SOB, Subjective fevers, diarrhea, polyuria, polydipsia, dysuria and loss of taste. EMS reported her oxygen Sat was 80% upon their arrival. Patient met criteria for sepsis protocol, with Chest CTA findings suggestive of Covid-19 Pneumonitis. Workup also met criteria for mild DKA. Pt was admitted to ICU due to COVID related acute respiratory distress and mild DKA. Pt is currently saturating well with ventimask at 50%, is hemodynamically stable and is optimized for transfer. Problem list: #Neuro -Alert and oriented #Cardio HTN -Monitor BP and maintain MAP>65. #Pulmonary COVID pneumonitis - Covid positive as of 12/05 - SARS Covid-19 serology negative - In the setting of COVID19 pneumonitis findings on Chest CTA - Chest CTA negative for PE - Continue Decadron 6 mg IVPush Daily - Continue Lovenox 80 mg SQ BID - Continue Vit C/D/zinc - Continue Ventolin hfa 2 puffs IH Q4 PRN - Supplemental O2 to maintain SpO2 >92%; Weaned to venti mask at 50%. Tolerating well. - Inflammatory Markers: LD total 344, elevated. CRP 12, elevated. D-dimer and ferritin wnl - Trend inflammatory markers - Leukopenia, resolved - Continue 100mg Remdesevir - Pulmonology (Dr. Topete), patient is stable for transfer to telemetry. #ID COVID19 pneumonitis VS UTI - Arrived with 102.4 fever, tachy, elevated RR, received tylenol and vitals improved - Rocephin and Zithromax empirically for suspected bacterial superinfection - Follow blood Cx, negative 24 hrs - Urine Cx growing lactose fermenting neg bacilli, along with UTI symptoms, treating with broad spectrum - Urine Legionella/Pneumoniae Ag neg - ID (Dr. Clements/Harrison) consulted. Recommended continue remdesivir, rocephin and zithromax. #Endo Mild DKA DM - Initial Beta-Hydroxybutyrate in DKA range, 39.2 --> 29.7, ketonuria - Anion gap closed - Lactic acid within normal range - Bicarbonate levels within normal range - ISS (No gtt recommended at this time) + BGM ACHS -Continue gabapentin for neuropathy #GI/Hepatology Transaminitis in the setting of [place] vs sepsis from Covid - LFTs improved - Hepatitis panel pending #FEN - No standing fluids - Monitor electrolytes and replete as necessary - Diabetic/sodium diet #PPx - DVT: Lovenox 80 mg SQ BID - Pantoprazole 20 mg Daily #Disposition Transfer Visit type - Emergency Visit Emergency Visit: Yes ED Registration Date: 12/05/19 Care time: The patient presented to the Emergency Department on the above date and was hospitalized for further evaluation of their emergent condition. - New Patient This patient is new to me today: No - Critical Care Critical Care patient: Yes Total Critical Care Time (in minutes): 38 Critical Care Statement: The care of this patient involved high complexity decision making to prevent further life threatening deterioration of the patient's condition and/or to evaluate & treat vital organ system(s) failure or risk of failure. ATTENDING PHYSICIAN STATEMENT I saw and evaluated the patient. I reviewed the resident's note and discussed the case with the resident. I agree with the resident's findings and plan as documented. SUBJECTIVE: OBJECTIVE: ASSESSMENT AND PLAN:
--- NOTE | 2019-12-06 16:35 | HOSP ---
Subjective - Review of Symptoms Subjective: Acceptance Note Pt seen and assessed at bedside in ICU, seen stable, NAD, AOx3. Pt stable for transfer from ICU to telemetry. Physical Examination Vital Signs: Vital Signs Temperature 98.4 F 12/06/19 14:00 Pulse Rate 84 12/06/19 14:00 Respiratory Rate 32 H 12/06/19 14:00 Blood Pressure 123/78 12/06/19 14:00 O2 Sat by Pulse Oximetry (%) 94 L 12/06/19 14:00 Findings/Remarks: General: AOx3, pt resting comfortably in bed Lungs: Decreased air movement B/L, fine crackles in bases Heart: RRR, no murmurs or rubs noted Abdomen: Soft, non-tender Extremities: No edema, pulses intact Neuro: Motor 5/5, sensations intact in all 4 extremities Labs: CBC, BMP 12/06/19 06:02 12/06/19 06:00 Visit type - Emergency Visit Emergency Visit: No - New Patient This patient is new to me today: Yes Date on this admission: 12/07/19 - Critical Care Critical Care patient: No
[2019-12-07] MEDS: INSULIN SLIDING SCALE (NOVOLOG) 1 VIAL SQ SCH ×4 (06:35→22:41)
[2019-12-07 07:33] LABS: BASO % 0.2 % (0-2.0); EOS % 0.2 % (0-4.5); HEMATOCRIT 33.5 % (32.4-45.2); HEMOGLOBIN 11.1 GM/dL (10.7-15.3); LYMPH % 21.8 % (8-40); MCH 26.3 pg (25.7-33.7); MCHC 33.1 g/dl (32.0-36.0); MEAN CELL VOLUME 79.5 fl (80-96); MEAN PLT VOLUME 8.4 fl (7.5-11.1); MONO % 12.9 % (3.8-10.2); NEUT % 64.9 % (42.8-82.8); PLATELET COUNT 351 K/MM3 (134-434); RBC 4.21 M/mm3 (3.60-5.2); RDW 14.2 % (11.6-15.6); WHITE BLOOD COUNT 4.9 K/mm3 (4.0-10.0)
[2019-12-07 07:43] LABS: ALBUMIN 1.6 g/dl (3.4-5.0); BILIRUBIN,TOTAL 0.3 mg/dL (0.2-1); BLOOD UREA NITROGEN 19.3 mg/dL (7-18); CALCIUM 8.1 mg/dL (8.5-10.1); CREATININE 0.6 mg/dL (0.55-1.3); MAGNESIUM 2.1 mg/dL (1.8-2.4); PHOSPHOROUS 2.8 mg/dL (2.5-4.9); POTASSIUM 3.5 mmol/L (3.5-5.1)
[2019-12-07] MEDS ORDERED: DEXTROSE 5%-WATER 100 ML IVPB ONE (08:36)
[2019-12-07 09:00] VITALS: BMI 31.1
[2019-12-07] MEDS: ENOXAPARIN NA (PORCINE) 80 MG/0.8 ML DISP.SYRIN SQ SCH (10:44)
[2019-12-07] MEDS: MUPIROCIN 2% TOPICAL OINTMENT FOR DECOLONIZATION NS SCH ×2 (10:44→23:37)
[2019-12-07] MEDS: GABAPENTIN 300 MG CAPSULE PO SCH ×2 (10:45→22:44)
[2019-12-07] MEDS: CEFTRIAXONE 2 GM in DEXTROSE 5%-WATER 100 ML IVPB SCH (10:45)
[2019-12-07] MEDS: PANTOPRAZOLE 20 MG TABLET PO SCH (10:45)
[2019-12-07] MEDS: ZINC SULFATE 220 MG CAPSULE (FP) PO SCH ×2 (10:45→22:44)
[2019-12-07] MEDS: AZITHROMYCIN IVPB 500 MG/250 ML BAG IVPB SCH (10:46)
[2019-12-07] MEDS: CHOLECALCIFEROL (VIT D3) 1,000 UNIT (25 MCG) TABLET PO SCH (10:46)
[2019-12-07] MEDS: ASCORBIC ACID 250 MG TABLET (FP) PO SCH ×2 (10:46→23:37)
--- NOTE | 2019-12-07 11:12 | PN ---
Physical Exam: SUBJECTIVE: Patient seen and examined. Stated that breathing has improved. No complaints at this time. OBJECTIVE: Vital Signs Period Temp Pulse Resp BP Sys/Aguilar Pulse Ox Last 24 Hr 97.8 F-98.4 F 75-97 25-44 123-148/70-118 94-100 Physical exam as per Dr. Otoole, due to limited PPE. GENERAL: AAOx3, not in acute distress. HEENT: NCAT, EOMI, dry mucous membranes. LUNGS: Breath sounds decreased at bases. HEART: Regular rate and rhythm, S1, S2 without murmur ABDOMEN: Bowel sounds present. Soft, nontender, nondistended EXTREMITIES: warm, well-perfused, no edema. SKIN: Warm, dry Laboratory Last Values WBC 4.9 K/mm3 (4.0-10.0) 12/07/19 06:05 RBC 4.21 M/mm3 (3.60-5.2) 12/07/19 06:05 Hgb 11.1 GM/dL (10.7-15.3) 12/07/19 06:05 Hct 33.5 % (32.4-45.2) 12/07/19 06:05 MCV 79.5 fl (80-96) L 12/07/19 06:05 MCH 26.3 pg (25.7-33.7) 12/07/19 06:05 MCHC 33.1 g/dl (32.0-36.0) 12/07/19 06:05 RDW 14.2 % (11.6-15.6) 12/07/19 06:05 Plt Count 351 K/MM3 (134-434) D 12/07/19 06:05 MPV 8.4 fl (7.5-11.1) 12/07/19 06:05 Absolute Neuts (auto) 3.2 K/mm3 (1.5-8.0) 12/07/19 06:05 Neutrophils % 64.9 % (42.8-82.8) 12/07/19 06:05 Lymphocytes % 21.8 % (8-40) D 12/07/19 06:05 Monocytes % 12.9 % (3.8-10.2) H 12/07/19 06:05 Eosinophils % 0.2 % (0-4.5) D 12/07/19 06:05 Basophils % 0.2 % (0-2.0) 12/07/19 06:05 Nucleated RBC % 0 % (0-0) 12/07/19 06:05 ESR 101 mm/hr (0-20) H 12/07/19 06:05 PT with INR 10.80 SEC (9.7-13.0) 12/05/19 06:15 INR 0.92 (0.83-1.09) 12/05/19 06:15 PTT (Actin FS) 29.2 SECONDS (25.2-36.5) 12/05/19 06:15 D-Dimer 409 ng/ml (0-500) 12/07/19 06:05 Anticoagulation Therapy Cancelled 12/05/19 12:18 Puncture Site Cancelled 12/05/19 12:18 Patient Temperature Cancelled 12/05/19 12:18 ABG pH Cancelled 12/05/19 12:18 ABG pCO2 Cancelled 12/05/19 12:18 ABG pO2 Cancelled 12/05/19 12:18 ABG HCO3 Cancelled 12/05/19 12:18 ABG O2 Sat (Measured) Cancelled 12/05/19 12:18 ABG O2 Content Cancelled 12/05/19 12:18 ABG Base Excess Cancelled 12/05/19 12:18 John Paul Test Cancelled 12/05/19 12:18 Patient On Oxygen Cancelled 12/05/19 12:18 O2 Delivery Device Cancelled 12/05/19 12:18 Oxygen Flow Rate Cancelled 12/05/19 12:18 Vent Mode Cancelled 12/05/19 12:18 Vent Rate Cancelled 12/05/19 12:18 Mechanical Rate Cancelled 12/05/19 12:18 PEEP Cancelled 12/05/19 12:18 Pressure Support Vent Cancelled 12/05/19 12:18 Sodium 142 mmol/L (136-145) 12/07/19 06:05 Potassium 3.5 mmol/L (3.5-5.1) 12/07/19 06:05 Chloride 111 mmol/L (98-107) H 12/07/19 06:05 Carbon Dioxide 23 mmol/L (21-32) 12/07/19 06:05 Anion Gap 7 MMOL/L (8-16) L 12/07/19 06:05 BUN 19.3 mg/dL (7-18) H 12/07/19 06:05 Creatinine 0.6 mg/dL (0.55-1.3) 12/07/19 06:05 Est GFR (CKD-EPI)AfAm 124.92 12/07/19 06:05 Est GFR (CKD-EPI)NonAf 107.78 12/07/19 06:05 POC Glucometer 308 UNITS (80-120) 12/07/19 11:10 Random Glucose 179 mg/dL (74-106) H 12/07/19 06:05 Hemoglobin A1c % < 3.5 % (4.2-6.3) L 12/05/19 12:01 Lactic Acid 0.9 mmol/L (0.4-2.0) 12/05/19 15:14 Calcium 8.1 mg/dL (8.5-10.1) L 12/07/19 06:05 Phosphorus 2.8 mg/dL (2.5-4.9) 12/07/19 06:05 Magnesium 2.1 mg/dL (1.8-2.4) 12/07/19 06:05 Ferritin 343.7 ng/ml (8-388) 12/07/19 06:05 Total Bilirubin 0.3 mg/dL (0.2-1) 12/07/19 06:05 AST 109 U/L (15-37) H 12/07/19 06:05 ALT 72 U/L (13-61) H 12/07/19 06:05 Alkaline Phosphatase 100 U/L (45-117) 12/07/19 06:05 LD Total 282 U/L (84-246) H 12/07/19 06:05 Troponin I < 0.02 ng/ml (0.00-0.05) 12/05/19 06:15 C-Reactive Protein 5.5 MG/DL (0.00-0.3) H 12/07/19 06:05 Total Protein 6.0 g/dl (6.4-8.2) L 12/07/19 06:05 Albumin 1.6 g/dl (3.4-5.0) L 12/07/19 06:05 Beta-Hydroxybutyrate 29.7 mg/dL (0.2-2.8) H 12/05/19 12:01 Beta HCG, Quant Cancelled 12/05/19 06:15 Serum , Qual Negative 12/05/19 08:00 Urine Color Yellow 12/05/19 05:49 Urine Appearance Cloudy 12/05/19 05:49 Urine pH 5.0 (5.0-8.0) 12/05/19 05:49 Ur Specific [place] 1.029 (1.010-1.035) 12/05/19 05:49 Urine Protein 3+ (NEGATIVE) H 12/05/19 05:49 Urine Glucose (UA) 3+ (NEGATIVE) H 12/05/19 05:49 Urine Ketones 1+ (NEGATIVE) H 12/05/19 05:49 Urine Blood 1+ (NEGATIVE) H 12/05/19 05:49 Urine Nitrite Negative (NEGATIVE) 12/05/19 05:49 Urine Bilirubin Negative (NEGATIVE) 12/05/19 05:49 Urine Urobilinogen 0.2 mg/dL (0.2-1.0) 12/05/19 05:49 Ur Leukocyte Esterase Trace (NEGATIVE) 12/05/19 05:49 Urine WBC (Auto) 598 /uL (0-25.8) 12/05/19 05:49 Urine RBC (Auto) 13 /uL (0-23.9) 12/05/19 05:49 Urine Casts (Auto) 27 /uL (0-3.1) 12/05/19 05:49 U Epithel Cells (Auto) >36 /uL (0-25.1) 12/05/19 05:49 Urine Bacteria (Auto) >10,000 /uL (0-1359) 12/05/19 05:49 COVID-19 (BULMARO) Detected (Not Detected) H 12/05/19 06:15 Hep A IgM Ab Confirm Negative (Negative) 12/05/19 19:15 Hep Bs Antigen Negative (Negative) 12/05/19 19:15 Hep B Core IgM Ab Negative (Negative) 12/05/19 19:15 Hepatitis C Ab (EIA) <0.1 s/co ratio (0.0-0.9) 12/05/19 19:15 SARS-CoV-2 Ab Interp Non-reactive (NONREACTIVE) 12/05/19 11:05 Active Medications Albuterol Sulfate (Ventolin Hfa Inhaler -) 2 puff IH Q4H PRN PRN Reason: SHORT OF BREATH/WHEEZING Apixaban (Eliquis -) 5 mg PO BID [facility] Ascorbic Acid (Vitamin C -) 250 mg PO BID [facility] Last Admin: 12/07/19 10:46 Dose: 250 mg Documented by: Chlorhexidine Gluconate (Hibiclens For Decolonization -) 1 applic TP HS [facility] Last Admin: 12/06/19 23:08 Dose: 1 applic Documented by: Cholecalciferol (Vitamin D3 -) 1,000 unit PO DAILY [facility] Last Admin: 12/07/19 10:46 Dose: 1,000 unit Documented by: Gabapentin (Neurontin -) 900 mg PO BID [facility] Last Admin: 12/07/19 10:45 Dose: 900 mg Documented by: Non-Formulary Medication 100 (mg/ Sodium Chloride) 250 mls @ 250 mls/hr IVPB DAILY [facility] Stop: 12/09/19 10:59 Last Admin: 12/07/19 11:39 Dose: 250 mls/hr Documented by: Azithromycin (Zithromax 500mg Ivpb (Pre-Docked)) 500 mg in 250 mls @ 250 mls/hr IVPB DAILY [facility] Last Admin: 12/07/19 10:46 Dose: 250 mls/hr Documented by: Ceftriaxone Sodium 2 gm/ (Dextrose) 100 mls @ 200 mls/hr IVPB DAILY [facility]; Protocol Last Admin: 12/07/19 10:45 Dose: 200 mls/hr Documented by: Insulin Aspart (Novolog Vial Sliding Scale -) 1 vial SQ ACHS [facility]; Protocol Last Admin: 12/07/19 11:39 Dose: 8 units Documented by: Mupirocin (Bactroban Ointment (For Decolonization) -) 1 applic NS BID [facility] Stop: 12/10/19 21:59 Last Admin: 12/07/19 10:44 Dose: 1 applic Documented by: Pantoprazole Sodium (Protonix -) 20 mg PO DAILY [facility] Last Admin: 12/07/19 10:45 Dose: 20 mg Documented by: Zinc Sulfate (Orazinc -) 220 mg PO BID [facility] Last Admin: 12/07/19 10:45 Dose: 220 mg Documented by: ASSESSMENT/PLAN: 49 y/o with PMH DM, HTN, cholecystectomy, Gastroparesis presented to the ED with SOB, Subjective fevers, diarrhea, polyuria, polydipsia, dysuria and loss of taste. EMS reported her oxygen Sat was 80% upon their arrival. Pt was admitted to ICU due to COVID related acute respiratory distress and mild DKA. Pt is currently saturating well with ventimask at 50%, is hemodynamically stable and is optimized for transfer. Problem list: #Neuro -Alert and oriented #Cardio HTN -Monitor BP and maintain MAP>65. #Pulmonary Acute hypoxic respiratory failure secondary to COVID - Covid positive as of 12/05 - SARS Covid-19 serology negative - Chest CTA negative for PE, showed b/l ground glass opacities consistent with COVID. - Discontinued Lovenox. - Started Eliquis 5mg BID - Continue Vit C/D/zinc - Continue Ventolin hfa 2 puffs IH Q4 PRN - Supplemental O2 to maintain SpO2 >92%; Weaned to venti mask at 50%. Tolerating well. - Inflammatory Markers: LD total 282, elevated. CRP 5.5, elevated. D-dimer and ferritin wnl. ESR 101, elevated. - Trend inflammatory markers - Leukopenia, resolved - Continue 100mg Remdesevir #ID COVID19 pneumonitis VS UTI - Arrived with 102.4 fever, tachy, elevated RR, received tylenol and vitals improved - Rocephin and Zithromax empirically for suspected bacterial superinfection - Blood cultures negative - Urine Cx growing E Coli, treating with broad spectrum - Urine Legionella/Pneumoniae Ag neg - ID (Dr. Clements/Harrison) consulted. Recommended continue remdesivir, rocephin and zithromax. #Endo Mild DKA DM - Anion gap closed - Lactic acid within normal range - Bicarbonate levels within normal range - ISS + BGM ACHS -Continue gabapentin for neuropathy #GI/Hepatology Transaminitis likely due to sepsis from COVID - LFTs improved - Hepatitis panel negative #FEN - No standing fluids - Monitor electrolytes and replete as necessary - Diabetic/sodium diet #PPx - DVT: Eliquis - Pantoprazole 20 mg Daily -Activity: OOB to chair #Disposition Transfer Visit type - Emergency Visit Emergency Visit: Yes ED Registration Date: 12/05/19 Care time: The patient presented to the Emergency Department on the above date and was hospitalized for further evaluation of their emergent condition. - New Patient This patient is new to me today: No - Critical Care Critical Care patient: Yes Total Critical Care Time (in minutes): 39 Critical Care Statement: The care of this patient involved high complexity decision making to prevent further life threatening deterioration of the patient's condition and/or to evaluate & treat vital organ system(s) failure or risk of failure. ATTENDING PHYSICIAN STATEMENT I saw and evaluated the patient. I reviewed the resident's note and discussed the case with the resident. I agree with the resident's findings and plan as documented. SUBJECTIVE: OBJECTIVE: ASSESSMENT AND PLAN:
--- NOTE | 2019-12-07 11:19 | PN ---
Teaching Attending Note Name of Resident: Sandi Jaimes ATTENDING PHYSICIAN STATEMENT I saw and evaluated the patient. I reviewed the resident's note and discussed the case with the resident. I agree with the resident's findings and plan as documented. SUBJECTIVE: Patient seen and examined in the ICU. Reports breathing is better. 50% VM. Intake & Output 12/04/19 12/05/19 12/06/19 12/07/19 23:59 23:59 23:59 23:59 Intake Total 3250 1260 250 Output Total 500 1 Balance 2750 1259 250 Weight 176 lb 5.917 oz 176 lb Last Vital Signs Temp Pulse Resp BP Pulse Ox 98.4 F 92 H 32 H 145/89 97 12/07/19 06:00 12/07/19 08:00 12/07/19 08:00 12/07/19 08:00 12/07/19 08:00 Active Medications Albuterol Sulfate (Ventolin Hfa Inhaler -) 2 puff IH Q4H PRN PRN Reason: SHORT OF BREATH/WHEEZING Ascorbic Acid (Vitamin C -) 250 mg PO BID [facility] Last Admin: 12/07/19 10:46 Dose: 250 mg Documented by: Chlorhexidine Gluconate (Hibiclens For Decolonization -) 1 applic TP HS [facility] Last Admin: 12/06/19 23:08 Dose: 1 applic Documented by: Cholecalciferol (Vitamin D3 -) 1,000 unit PO DAILY [facility] Last Admin: 12/07/19 10:46 Dose: 1,000 unit Documented by: Enoxaparin Sodium (Lovenox -) 80 mg SQ BID [facility] Last Admin: 12/07/19 10:44 Dose: 80 mg Documented by: Gabapentin (Neurontin -) 900 mg PO BID [facility] Last Admin: 12/07/19 10:45 Dose: 900 mg Documented by: Non-Formulary Medication 100 (mg/ Sodium Chloride) 250 mls @ 250 mls/hr IVPB DAILY [facility] Stop: 12/09/19 10:59 Last Admin: 12/06/19 09:20 Dose: 250 mls/hr Documented by: Azithromycin (Zithromax 500mg Ivpb (Pre-Docked)) 500 mg in 250 mls @ 250 mls/hr IVPB DAILY [facility] Last Admin: 12/07/19 10:46 Dose: 250 mls/hr Documented by: Ceftriaxone Sodium 2 gm/ (Dextrose) 100 mls @ 200 mls/hr IVPB DAILY [facility]; Protocol Last Admin: 12/07/19 10:45 Dose: 200 mls/hr Documented by: Insulin Aspart (Novolog Vial Sliding Scale -) 1 vial SQ ACHS [facility]; Protocol Last Admin: 12/07/19 06:35 Dose: Not Given Documented by: Mupirocin (Bactroban Ointment (For Decolonization) -) 1 applic NS BID [facility] Stop: 12/10/19 21:59 Last Admin: 12/07/19 10:44 Dose: 1 applic Documented by: Pantoprazole Sodium (Protonix -) 20 mg PO DAILY [facility] Last Admin: 12/07/19 10:45 Dose: 20 mg Documented by: Zinc Sulfate (Orazinc -) 220 mg PO BID [facility] Last Admin: 12/07/19 10:45 Dose: 220 mg Documented by: GENERAL: A&Ox3, Mildly tachypneic on 50% VM HEAD: NCAT EYES: PERRL, EOMI ENT: dry mucous membranes. NECK: No JVD LUNGS: Diminished breath sounds at the bases, Poor inspiratory effort HEART: S1 S2 ABDOMEN: Soft, non-tender to palpation, not distended, + bowel sounds, no guar ding, no rebound MUSCULOSKELETAL: No CVA tenderness. EXTREMITIES: No peripheral edema. NEUROLOGICAL: Non-focal PSYCHIATRIC: Cooperative. SKIN: Warm, dry Laboratory Results - last 24 hr 12/05/19 12/06/19 12/06/19 19:15 11:44 17:24 WBC RBC Hgb Hct MCV MCH MCHC RDW Plt Count MPV Absolute Neuts (auto) Neutrophils % Lymphocytes % Monocytes % Eosinophils % Basophils % Nucleated RBC % D-Dimer Sodium Potassium Chloride Carbon Dioxide Anion Gap BUN Creatinine Est GFR (CKD-EPI)AfAm Est GFR (CKD-EPI)NonAf POC Glucometer 279 301 Random Glucose Calcium Phosphorus Magnesium Ferritin Total Bilirubin AST ALT Alkaline Phosphatase LD Total C-Reactive Protein Total Protein Albumin Hep A IgM Ab Confirm Negative Hep Bs Antigen Negative Hep B Core IgM Ab Negative Hepatitis C Ab (EIA) <0.1 12/07/19 12/07/19 12/07/19 04:00 06:05 06:05 WBC 4.9 RBC 4.21 Hgb 11.1 Hct 33.5 MCV 79.5 L MCH 26.3 MCHC 33.1 RDW 14.2 Plt Count 351 D MPV 8.4 Absolute Neuts (auto) 3.2 Neutrophils % 64.9 Lymphocytes % 21.8 D Monocytes % 12.9 H Eosinophils % 0.2 D Basophils % 0.2 Nucleated RBC % 0 D-Dimer Sodium 142 Potassium 3.5 Chloride 111 H Carbon Dioxide 23 Anion Gap 7 L BUN 19.3 H Creatinine 0.6 Est GFR (CKD-EPI)AfAm 124.92 Est GFR (CKD-EPI)NonAf 107.78 POC Glucometer 185 Random Glucose 179 H Calcium 8.1 L Phosphorus 2.8 Magnesium 2.1 Ferritin Total Bilirubin 0.3 AST 109 H ALT 72 H Alkaline Phosphatase 100 LD Total 282 H C-Reactive Protein Total Protein 6.0 L Albumin 1.6 L Hep A IgM Ab Confirm Hep Bs Antigen Hep B Core IgM Ab Hepatitis C Ab (EIA) 12/07/19 12/07/19 12/07/19 06:05 06:05 11:10 WBC RBC Hgb Hct MCV MCH MCHC RDW Plt Count MPV Absolute Neuts (auto) Neutrophils % Lymphocytes % Monocytes % Eosinophils % Basophils % Nucleated RBC % D-Dimer 409 Sodium Potassium Chloride Carbon Dioxide Anion Gap BUN Creatinine Est GFR (CKD-EPI)AfAm Est GFR (CKD-EPI)NonAf POC Glucometer 308 Random Glucose Calcium Phosphorus Magnesium Ferritin 343.7 Total Bilirubin AST ALT Alkaline Phosphatase LD Total C-Reactive Protein 5.5 H Total Protein Albumin Hep A IgM Ab Confirm Hep Bs Antigen Hep B Core IgM Ab Hepatitis C Ab (EIA) ASSESSMENT/PLAN: COVID19 infection with Capillary Leak Syndrome / COVID19 Pneumonitis DM Hyperglycemia HTN Gastroparesis Sepsis PE ruled out Dexamethasone 6mg OD Glycemic control Strict I & O AC with Reta Strict Isolation and usage of Full PPE Vit C Vitamin D Zinc No nebulized treatments Supplemental O2 to maintain saturation Remdesivir Floor Dr Rivas
[2019-12-07] MEDS: REMDESIVIR 100 MG in SODIUM CHLORIDE 230 ML IVPB SCH (11:39)
--- NOTE | 2019-12-07 15:15 | PN ---
Progress Note, Physician History of Present Illness: COVID-19+ ON REMDESIVIR IMPROVED AWAKE , ALERT ON 50% VM BREATHING NON-LABORED DENIES DYSPNEA/ CHEST PAIN/ COUGH LOW GRADE TEMP WBC IMPROVED URINE C/S E COLI BC NO GROWTH LEGIONELLA AG (-) - Current Medication List Current Medications: Active Medications Albuterol Sulfate (Ventolin Hfa Inhaler -) 2 puff IH Q4H PRN PRN Reason: SHORT OF BREATH/WHEEZING Apixaban (Eliquis -) 5 mg PO BID [facility] Ascorbic Acid (Vitamin C -) 250 mg PO BID [facility] Last Admin: 12/07/19 10:46 Dose: 250 mg Documented by: Chlorhexidine Gluconate (Hibiclens For Decolonization -) 1 applic TP HS [facility] Last Admin: 12/06/19 23:08 Dose: 1 applic Documented by: Cholecalciferol (Vitamin D3 -) 1,000 unit PO DAILY [facility] Last Admin: 12/07/19 10:46 Dose: 1,000 unit Documented by: Gabapentin (Neurontin -) 900 mg PO BID [facility] Last Admin: 12/07/19 10:45 Dose: 900 mg Documented by: Non-Formulary Medication 100 (mg/ Sodium Chloride) 250 mls @ 250 mls/hr IVPB DAILY [facility] Stop: 12/09/19 10:59 Last Admin: 12/07/19 11:39 Dose: 250 mls/hr Documented by: Azithromycin (Zithromax 500mg Ivpb (Pre-Docked)) 500 mg in 250 mls @ 250 mls/hr IVPB DAILY [facility] Last Admin: 12/07/19 10:46 Dose: 250 mls/hr Documented by: Ceftriaxone Sodium 2 gm/ (Dextrose) 100 mls @ 200 mls/hr IVPB DAILY [facility]; Protocol Last Admin: 12/07/19 10:45 Dose: 200 mls/hr Documented by: Insulin Aspart (Novolog Vial Sliding Scale -) 1 vial SQ ACHS [facility]; Protocol Last Admin: 12/07/19 11:39 Dose: 8 units Documented by: Mupirocin (Bactroban Ointment (For Decolonization) -) 1 applic NS BID [facility] Stop: 12/10/19 21:59 Last Admin: 12/07/19 10:44 Dose: 1 applic Documented by: Pantoprazole Sodium (Protonix -) 20 mg PO DAILY [facility] Last Admin: 12/07/19 10:45 Dose: 20 mg Documented by: Zinc Sulfate (Orazinc -) 220 mg PO BID [facility] Last Admin: 12/07/19 10:45 Dose: 220 mg Documented by: - Objective Vital Signs: Vital Signs Temperature 99.8 F H 12/07/19 14:00 Pulse Rate 96 H 12/07/19 14:00 Respiratory Rate 35 H 12/07/19 14:00 Blood Pressure 169/91 12/07/19 14:00 O2 Sat by Pulse Oximetry (%) 99 12/07/19 14:00 Constitutional: Yes: No Distress Cardiovascular: Yes: Regular Rate and Rhythm, S1, S2 Respiratory: Yes: Diminished Gastrointestinal: Yes: Normal Bowel Sounds, Soft. No: Tenderness Edema: No Labs: CBC, BMP 12/07/19 06:05 12/07/19 06:05 INR, PTT INR 0.92 (0.83-1.09) 12/05/19 06:15 Assessment/Plan COVID-19 PNEUMONITIS ? SUPERIMPOSED BACTERIAL PNEUMONIA UTI E COLI UNCONTROLLED DM CONTINUE REMDESIVIR CEFTRIAXONE/ ZITHROMAX
[2019-12-07] MEDS: APIXABAN 5 MG TABLET PO SCH (22:44)
[2019-12-07] MEDS: CHLORHEXIDINE GLUCONATE 4% CLEANSER FOR DECOLONIZATION TP SCH (23:37)
[2019-12-08 06:06] LABS: BASO % 0.3 % (0-2.0); EOS % 0.2 % (0-4.5); HEMATOCRIT 32.9 % (32.4-45.2); HEMOGLOBIN 10.9 GM/dL (10.7-15.3); LYMPH % 19.4 % (8-40); MCH 26.3 pg (25.7-33.7); MCHC 33.2 g/dl (32.0-36.0); MEAN CELL VOLUME 79.1 fl (80-96); MEAN PLT VOLUME 7.7 fl (7.5-11.1); MONO % 13.3 % (3.8-10.2); NEUT % 66.8 % (42.8-82.8); PLATELET COUNT 361 K/MM3 (134-434); RBC 4.16 M/mm3 (3.60-5.2); RDW 14.3 % (11.6-15.6)
[2019-12-08] MEDS: INSULIN SLIDING SCALE (NOVOLOG) 1 VIAL SQ SCH ×6 (06:39→22:40)
[2019-12-08 06:40] LABS: ALBUMIN 1.6 g/dl (3.4-5.0); BILIRUBIN,TOTAL 0.7 mg/dL (0.2-1); BLOOD UREA NITROGEN 13.5 mg/dL (7-18); CALCIUM 7.9 mg/dL (8.5-10.1); CREATININE 0.6 mg/dL (0.55-1.3); MAGNESIUM 1.8 mg/dL (1.8-2.4); PHOSPHOROUS 3.3 mg/dL (2.5-4.9); POTASSIUM 3.3 mmol/L (3.5-5.1); TOT PROT 5.6 g/dl (6.4-8.2)
[2019-12-08] MEDS ORDERED: POTASSIUM CHLORIDE TABS 20 MEQ TABLET.ER (FP) PO ONE (07:16)
--- NOTE | 2019-12-08 07:50 | PN ---
Physical Exam: SUBJECTIVE: Patient seen and examined. No acute overnight events. OBJECTIVE: Vital Signs Period Temp Pulse Resp BP Sys/Aguilar Pulse Ox Last 24 Hr 98.5 F-100.3 F 88-98 20-39 128-169/70-91 93-99 Physical exam as per Dr. Otoole, due to limited PPE. GENERAL: AAOx3, not in acute distress. HEENT: NCAT, EOMI, dry mucous membranes. LUNGS: Breath sounds decreased at bases. Non-labored breathing HEART: Regular rate and rhythm, S1, S2 without murmur ABDOMEN: Bowel sounds present. Soft, nontender, nondistended EXTREMITIES: warm, well-perfused, no edema. SKIN: Warm, dry Laboratory Last Values WBC 5.0 K/mm3 (4.0-10.0) 12/08/19 05:50 RBC 4.16 M/mm3 (3.60-5.2) 12/08/19 05:50 Hgb 10.9 GM/dL (10.7-15.3) 12/08/19 05:50 Hct 32.9 % (32.4-45.2) 12/08/19 05:50 MCV 79.1 fl (80-96) L 12/08/19 05:50 MCH 26.3 pg (25.7-33.7) 12/08/19 05:50 MCHC 33.2 g/dl (32.0-36.0) 12/08/19 05:50 RDW 14.3 % (11.6-15.6) 12/08/19 05:50 Plt Count 361 K/MM3 (134-434) 12/08/19 05:50 MPV 7.7 fl (7.5-11.1) 12/08/19 05:50 Absolute Neuts (auto) 3.4 K/mm3 (1.5-8.0) 12/08/19 05:50 Neutrophils % 66.8 % (42.8-82.8) 12/08/19 05:50 Lymphocytes % 19.4 % (8-40) 12/08/19 05:50 Monocytes % 13.3 % (3.8-10.2) H 12/08/19 05:50 Eosinophils % 0.2 % (0-4.5) 12/08/19 05:50 Basophils % 0.3 % (0-2.0) 12/08/19 05:50 Nucleated RBC % 0 % (0-0) 12/08/19 05:50 ESR 101 mm/hr (0-20) H 12/07/19 06:05 PT with INR 10.80 SEC (9.7-13.0) 12/05/19 06:15 INR 0.92 (0.83-1.09) 12/05/19 06:15 PTT (Actin FS) 29.2 SECONDS (25.2-36.5) 12/05/19 06:15 D-Dimer 409 ng/ml (0-500) 12/07/19 06:05 Anticoagulation Therapy Cancelled 12/05/19 12:18 Puncture Site Cancelled 12/05/19 12:18 Patient Temperature Cancelled 12/05/19 12:18 ABG pH Cancelled 12/05/19 12:18 ABG pCO2 Cancelled 12/05/19 12:18 ABG pO2 Cancelled 12/05/19 12:18 ABG HCO3 Cancelled 12/05/19 12:18 ABG O2 Sat (Measured) Cancelled 12/05/19 12:18 ABG O2 Content Cancelled 12/05/19 12:18 ABG Base Excess Cancelled 12/05/19 12:18 John Paul Test Cancelled 12/05/19 12:18 Patient On Oxygen Cancelled 12/05/19 12:18 O2 Delivery Device Cancelled 12/05/19 12:18 Oxygen Flow Rate Cancelled 12/05/19 12:18 Vent Mode Cancelled 12/05/19 12:18 Vent Rate Cancelled 12/05/19 12:18 Mechanical Rate Cancelled 12/05/19 12:18 PEEP Cancelled 12/05/19 12:18 Pressure Support Vent Cancelled 12/05/19 12:18 Sodium 142 mmol/L (136-145) 12/08/19 05:50 Potassium 3.3 mmol/L (3.5-5.1) L 12/08/19 05:50 Chloride 109 mmol/L (98-107) H 12/08/19 05:50 Carbon Dioxide 22 mmol/L (21-32) 12/08/19 05:50 Anion Gap 11 MMOL/L (8-16) 12/08/19 05:50 BUN 13.5 mg/dL (7-18) 12/08/19 05:50 Creatinine 0.6 mg/dL (0.55-1.3) 12/08/19 05:50 Est GFR (CKD-EPI)AfAm 124.92 12/08/19 05:50 Est GFR (CKD-EPI)NonAf 107.78 12/08/19 05:50 POC Glucometer 240 UNITS (80-120) 12/08/19 05:48 Random Glucose 261 mg/dL (74-106) H 12/08/19 05:50 Hemoglobin A1c % < 3.5 % (4.2-6.3) L 12/05/19 12:01 Lactic Acid 0.9 mmol/L (0.4-2.0) 12/05/19 15:14 Calcium 7.9 mg/dL (8.5-10.1) L 12/08/19 05:50 Phosphorus 3.3 mg/dL (2.5-4.9) 12/08/19 05:50 Magnesium 1.8 mg/dL (1.8-2.4) 12/08/19 05:50 Ferritin 343.7 ng/ml (8-388) 12/07/19 06:05 Total Bilirubin 0.7 mg/dL (0.2-1) 12/08/19 05:50 AST 35 U/L (15-37) 12/08/19 05:50 ALT 50 U/L (13-61) 12/08/19 05:50 Alkaline Phosphatase 91 U/L (45-117) 12/08/19 05:50 LD Total 252 U/L (84-246) H 12/08/19 05:50 Troponin I < 0.02 ng/ml (0.00-0.05) 12/05/19 06:15 C-Reactive Protein 8.0 MG/DL (0.00-0.3) H 12/08/19 05:50 Total Protein 5.6 g/dl (6.4-8.2) L 12/08/19 05:50 Albumin 1.6 g/dl (3.4-5.0) L 12/08/19 05:50 Beta-Hydroxybutyrate 29.7 mg/dL (0.2-2.8) H 12/05/19 12:01 Beta HCG, Quant Cancelled 12/05/19 06:15 Serum , Qual Negative 12/05/19 08:00 Urine Color Yellow 12/05/19 05:49 Urine Appearance Cloudy 12/05/19 05:49 Urine pH 5.0 (5.0-8.0) 12/05/19 05:49 Ur Specific Jackson 1.029 (1.010-1.035) 12/05/19 05:49 Urine Protein 3+ (NEGATIVE) H 12/05/19 05:49 Urine Glucose (UA) 3+ (NEGATIVE) H 12/05/19 05:49 Urine Ketones 1+ (NEGATIVE) H 12/05/19 05:49 Urine Blood 1+ (NEGATIVE) H 12/05/19 05:49 Urine Nitrite Negative (NEGATIVE) 12/05/19 05:49 Urine Bilirubin Negative (NEGATIVE) 12/05/19 05:49 Urine Urobilinogen 0.2 mg/dL (0.2-1.0) 12/05/19 05:49 Ur Leukocyte Esterase Trace (NEGATIVE) 12/05/19 05:49 Urine WBC (Auto) 598 /uL (0-25.8) 12/05/19 05:49 Urine RBC (Auto) 13 /uL (0-23.9) 12/05/19 05:49 Urine Casts (Auto) 27 /uL (0-3.1) 12/05/19 05:49 U Epithel Cells (Auto) >36 /uL (0-25.1) 12/05/19 05:49 Urine Bacteria (Auto) >10,000 /uL (0-1359) 12/05/19 05:49 COVID-19 (BULMARO) Detected (Not Detected) H 12/05/19 06:15 Hep A IgM Ab Confirm Negative (Negative) 12/05/19 19:15 Hep Bs Antigen Negative (Negative) 12/05/19 19:15 Hep B Core IgM Ab Negative (Negative) 12/05/19 19:15 Hepatitis C Ab (EIA) <0.1 s/co ratio (0.0-0.9) 12/05/19 19:15 SARS-CoV-2 Ab Interp Non-reactive (NONREACTIVE) 12/05/19 11:05 Active Medications Albuterol Sulfate (Ventolin Hfa Inhaler -) 2 puff IH Q4H PRN PRN Reason: SHORT OF BREATH/WHEEZING Apixaban (Eliquis -) 5 mg PO BID [facility] Last Admin: 12/07/19 22:44 Dose: 5 mg Documented by: Ascorbic Acid (Vitamin C -) 250 mg PO BID [facility] Last Admin: 12/07/19 23:37 Dose: 250 mg Documented by: Chlorhexidine Gluconate (Hibiclens For Decolonization -) 1 applic TP HS [facility] Last Admin: 12/07/19 23:37 Dose: 1 applic Documented by: Cholecalciferol (Vitamin D3 -) 1,000 unit PO DAILY [facility] Last Admin: 12/07/19 10:46 Dose: 1,000 unit Documented by: Gabapentin (Neurontin -) 900 mg PO BID [facility] Last Admin: 12/07/19 22:44 Dose: 900 mg Documented by: Non-Formulary Medication 100 (mg/ Sodium Chloride) 250 mls @ 250 mls/hr IVPB DAILY [facility] Stop: 12/09/19 10:59 Last Admin: 12/08/19 10:30 Dose: 250 mls/hr Documented by: Azithromycin (Zithromax 500mg Ivpb (Pre-Docked)) 500 mg in 250 mls @ 250 mls/hr IVPB DAILY [facility] Last Admin: 12/07/19 10:46 Dose: 250 mls/hr Documented by: Ceftriaxone Sodium 2 gm/ (Dextrose) 100 mls @ 200 mls/hr IVPB DAILY [facility]; Protocol Last Admin: 12/07/19 10:45 Dose: 200 mls/hr Documented by: Insulin Aspart (Novolog Vial Sliding Scale -) 1 vial SQ ACHS [facility]; Protocol Last Admin: 12/08/19 06:39 Dose: 4 units Documented by: Mupirocin (Bactroban Ointment (For Decolonization) -) 1 applic NS BID [facility] Stop: 12/10/19 21:59 Last Admin: 12/07/19 23:37 Dose: 1 applic Documented by: Pantoprazole Sodium (Protonix -) 20 mg PO DAILY [facility] Last Admin: 12/07/19 10:45 Dose: 20 mg Documented by: Zinc Sulfate (Orazinc -) 220 mg PO BID [facility] Last Admin: 12/07/19 22:44 Dose: 220 mg Documented by: ASSESSMENT/PLAN: 49 y/o with PMH DM, HTN, cholecystectomy, Gastroparesis presented to the ED with SOB, Subjective fevers, diarrhea, polyuria, polydipsia, dysuria and loss of taste. EMS reported her oxygen Sat was 80% upon their arrival. Pt was admitted to ICU due to COVID related acute respiratory distress and mild DKA. Pt is currently saturating well with ventimask at 50%, is hemodynamically stable and is optimized for transfer. No acute overnight events. Problem list: #Neuro -Alert and oriented -C/w gabapentin #Cardio HTN -Monitor BP and maintain MAP>65. #Pulmonary Acute hypoxic respiratory failure secondary to COVID - Covid positive as of 12/05 - SARS Covid-19 serology negative - Chest CTA negative for PE, showed b/l ground glass opacities consistent with COVID. - c/w Eliquis 5mg BID - Continue dexamethasone 6mg IV qD - Continue Vit C/D/zinc - Continue Ventolin hfa 2 puffs IH Q4 PRN - Continue 100mg Remdesevir - Supplemental O2 to maintain SpO2 >92%; Continue venti mask at 50%. Tolerating well. - Inflammatory Markers: LDH 252, elevated. CRP 8, elevated. D-dimer 706, elevated. ESR 102, elevated. - Trend inflammatory markers, if remained elevated, consider C-plasma - Leukopenia, resolved #ID COVID19 pneumonitis VS UTI - Arrived with 102.4 fever, tachy, elevated RR, received tylenol and vitals improved - Rocephin and Zithromax empirically for suspected bacterial superinfection - Blood cultures negative - Urine Cx growing E Coli, treating with broad spectrum - Urine Legionella/Pneumoniae Ag neg - ID (Dr. Clements/Harrison) consulted. Recommended continue remdesivir, ceftriaxone and zithromax. #Endo Mild DKA DM - Anion gap closed - Lactic acid within normal range - Bicarbonate levels within normal range - ISS + BGM ACHS -Start Levemir 25 U qHS -Continue gabapentin for neuropathy #GI/Hepatology Transaminitis likely due to sepsis from COVID - LFTs improved - Hepatitis panel negative #FEN - No standing fluids - Monitor electrolytes and replete as necessary - Diabetic/sodium diet #PPx - DVT: Eliquis - Pantoprazole 20 mg Daily -Activity: OOB to chair #Disposition Transfer Visit type - Emergency Visit Emergency Visit: Yes ED Registration Date: 12/05/19 Care time: The patient presented to the Emergency Department on the above date and was hospitalized for further evaluation of their emergent condition. - New Patient This patient is new to me today: No - Critical Care Critical Care patient: Yes Total Critical Care Time (in minutes): 37 Critical Care Statement: The care of this patient involved high complexity decision making to prevent further life threatening deterioration of the patient's condition and/or to evaluate & treat vital organ system(s) failure or risk of failure. ATTENDING PHYSICIAN STATEMENT I saw and evaluated the patient. I reviewed the resident's note and discussed the case with the resident. I agree with the resident's findings and plan as documented. SUBJECTIVE: OBJECTIVE: ASSESSMENT AND PLAN:
[2019-12-08] MEDS ORDERED: DEXTROSE 5%-WATER 100 ML IVPB ONE (09:14)
[2019-12-08] MEDS: REMDESIVIR 100 MG in SODIUM CHLORIDE 230 ML IVPB SCH (10:30)
[2019-12-08] MEDS: CEFTRIAXONE 2 GM in DEXTROSE 5%-WATER 100 ML IVPB SCH (11:26)
[2019-12-08] MEDS: PANTOPRAZOLE 20 MG TABLET PO SCH (11:26)
[2019-12-08] MEDS: APIXABAN 5 MG TABLET PO SCH ×2 (11:26→21:21)
[2019-12-08] MEDS: ZINC SULFATE 220 MG CAPSULE (FP) PO SCH ×2 (11:26→21:21)
[2019-12-08] MEDS: ASCORBIC ACID 250 MG TABLET (FP) PO SCH ×2 (11:26→22:03)
[2019-12-08] MEDS: MUPIROCIN 2% TOPICAL OINTMENT FOR DECOLONIZATION NS SCH (11:26)
[2019-12-08] MEDS: GABAPENTIN 300 MG CAPSULE PO SCH ×2 (11:26→21:21)
[2019-12-08] MEDS: CHOLECALCIFEROL (VIT D3) 1,000 UNIT (25 MCG) TABLET PO SCH (11:26)
[2019-12-08] MEDS: AZITHROMYCIN IVPB 500 MG/250 ML BAG IVPB SCH (11:27)
--- NOTE | 2019-12-08 12:02 | PN ---
Teaching Attending Note Name of Resident: Sandi Jaimes ATTENDING PHYSICIAN STATEMENT I saw and evaluated the patient. I reviewed the resident's note and discussed the case with the resident. I agree with the resident's findings and plan as documented. SUBJECTIVE: Patient seen and examined in the ICU. Reports breathing continues to slowly improve. Low grade fever overnight. 50% VM. Intake & Output 12/05/19 12/06/19 12/07/19 12/08/19 23:59 23:59 23:59 23:59 Intake Total 3250 1260 250 Output Total 500 1 2 Balance 2750 1259 248 Weight 176 lb 5.917 oz 176 lb Last Vital Signs Temp Pulse Resp BP Pulse Ox 100.3 F H 89 30 H 168/91 94 L 12/08/19 06:00 12/08/19 06:00 12/08/19 06:00 12/08/19 06:00 12/08/19 06:00 Active Medications Albuterol Sulfate (Ventolin Hfa Inhaler -) 2 puff IH Q4H PRN PRN Reason: SHORT OF BREATH/WHEEZING Apixaban (Eliquis -) 5 mg PO BID [facility] Last Admin: 12/08/19 11:26 Dose: 5 mg Documented by: Ascorbic Acid (Vitamin C -) 250 mg PO BID [facility] Last Admin: 12/08/19 11:26 Dose: 250 mg Documented by: Chlorhexidine Gluconate (Hibiclens For Decolonization -) 1 applic TP HS [facility] Last Admin: 12/07/19 23:37 Dose: 1 applic Documented by: Cholecalciferol (Vitamin D3 -) 1,000 unit PO DAILY [facility] Last Admin: 12/08/19 11:26 Dose: 1,000 unit Documented by: Dexamethasone Sodium Phosphate (Decadron Injection -) 6 mg IVPUSH DAILY [facility] Gabapentin (Neurontin -) 900 mg PO BID [facility] Last Admin: 12/08/19 11:26 Dose: 900 mg Documented by: Non-Formulary Medication 100 (mg/ Sodium Chloride) 250 mls @ 250 mls/hr IVPB DAILY [facility] Stop: 12/09/19 10:59 Last Admin: 12/08/19 10:30 Dose: 250 mls/hr Documented by: Azithromycin (Zithromax 500mg Ivpb (Pre-Docked)) 500 mg in 250 mls @ 250 mls/hr IVPB DAILY [facility] Last Admin: 12/08/19 11:27 Dose: 250 mls/hr Documented by: Ceftriaxone Sodium 2 gm/ (Dextrose) 100 mls @ 200 mls/hr IVPB DAILY [facility]; Protocol Last Admin: 12/08/19 11:26 Dose: 200 mls/hr Documented by: Insulin Aspart (Novolog Vial Sliding Scale -) 1 vial SQ ACHS [facility]; Protocol Last Admin: 12/08/19 06:39 Dose: 4 units Documented by: Mupirocin (Bactroban Ointment (For Decolonization) -) 1 applic NS BID [facility] Stop: 12/10/19 21:59 Last Admin: 12/08/19 11:26 Dose: 1 applic Documented by: Pantoprazole Sodium (Protonix -) 20 mg PO DAILY [facility] Last Admin: 12/08/19 11:26 Dose: 20 mg Documented by: Zinc Sulfate (Orazinc -) 220 mg PO BID [facility] Last Admin: 12/08/19 11:26 Dose: 220 mg Documented by: GENERAL: A&Ox3, Mildly tachypneic on 50% VM HEAD: NCAT EYES: PERRL, EOMI ENT: dry mucous membranes. NECK: No JVD LUNGS: Diminished breath sounds at the bases, Poor inspiratory effort HEART: S1 S2 ABDOMEN: Soft, non-tender to palpation, not distended, + bowel sounds, no guarding, no rebound MUSCULOSKELETAL: No CVA tenderness. EXTREMITIES: No peripheral edema. NEUROLOGICAL: Non-focal PSYCHIATRIC: Cooperative. SKIN: Warm, dry Laboratory Results - last 24 hr 12/07/19 12/07/19 12/08/19 17:08 23:45 05:48 WBC RBC Hgb Hct MCV MCH MCHC RDW Plt Count MPV Absolute Neuts (auto) Neutrophils % Lymphocytes % Monocytes % Eosinophils % Basophils % Nucleated RBC % ESR D-Dimer Sodium Potassium Chloride Carbon Dioxide Anion Gap BUN Creatinine Est GFR (CKD-EPI)AfAm Est GFR (CKD-EPI)NonAf POC Glucometer 227 273 240 Random Glucose Calcium Phosphorus Magnesium Total Bilirubin AST ALT Alkaline Phosphatase LD Total C-Reactive Protein Total Protein Albumin 12/08/19 12/08/19 12/08/19 05:50 05:50 05:50 WBC 5.0 RBC 4.16 Hgb 10.9 Hct 32.9 MCV 79.1 L MCH 26.3 MCHC 33.2 RDW 14.3 Plt Count 361 MPV 7.7 Absolute Neuts (auto) 3.4 Neutrophils % 66.8 Lymphocytes % 19.4 Monocytes % 13.3 H Eosinophils % 0.2 Basophils % 0.3 Nucleated RBC % 0 ESR 102 H D-Dimer Sodium 142 Potassium 3.3 L Chloride 109 H Carbon Dioxide 22 Anion Gap 11 BUN 13.5 Creatinine 0.6 Est GFR (CKD-EPI)AfAm 124.92 Est GFR (CKD-EPI)NonAf 107.78 POC Glucometer Random Glucose 261 H Calcium 7.9 L Phosphorus 3.3 Magnesium 1.8 Total Bilirubin 0.7 AST 35 ALT 50 Alkaline Phosphatase 91 LD Total 252 H C-Reactive Protein 8.0 H Total Protein 5.6 L Albumin 1.6 L 12/08/19 12/08/19 09:50 11:35 WBC RBC Hgb Hct MCV MCH MCHC RDW Plt Count MPV Absolute Neuts (auto) Neutrophils % Lymphocytes % Monocytes % Eosinophils % Basophils % Nucleated RBC % ESR D-Dimer 716 H Sodium Potassium Chloride Carbon Dioxide Anion Gap BUN Creatinine Est GFR (CKD-EPI)AfAm Est GFR (CKD-EPI)NonAf POC Glucometer 294 Random Glucose Calcium Phosphorus Magnesium Total Bilirubin AST ALT Alkaline Phosphatase LD Total C-Reactive Protein Total Protein Albumin ASSESSMENT/PLAN: COVID19 infection with Capillary Leak Syndrome / COVID19 Pneumonitis DM Hyperglycemia HTN Gastroparesis Sepsis PE ruled out Dexamethasone 6mg OD Glycemic control Strict I & O AC with Eliquis Strict Isolation and usage of Full PPE Vit C Vitamin D Zinc No nebulized treatments Supplemental O2 to maintain saturation Remdesivir x 5 days May benefit from Convalescent Plasma if continued fever or increasing symptoms Floor Dr Rivas
[2019-12-08] MEDS: DEXAMETHASONE SOD PHOSPHATE 10 MG/1 ML VIAL IVPUSH SCH (12:30)
--- NOTE | 2019-12-08 15:00 | PN ---
Progress Note, Physician History of Present Illness: ON REMDESIVIR IMPROVED AWAKE , ALERT ON 50% VM BREATHING NON-LABORED DENIES DYSPNEA/ CHEST PAIN/ COUGH LOW GRADE TEMP NOTED URINE C/S E COLI BC NO GROWTH LEGIONELLA AG (-) - Current Medication List Current Medications: Active Medications Albuterol Sulfate (Ventolin Hfa Inhaler -) 2 puff IH Q4H PRN PRN Reason: SHORT OF BREATH/WHEEZING Apixaban (Eliquis -) 5 mg PO BID [facility] Last Admin: 12/08/19 11:26 Dose: 5 mg Documented by: Ascorbic Acid (Vitamin C -) 250 mg PO BID [facility] Last Admin: 12/08/19 11:26 Dose: 250 mg Documented by: Chlorhexidine Gluconate (Hibiclens For Decolonization -) 1 applic TP HS [facility] Last Admin: 12/07/19 23:37 Dose: 1 applic Documented by: Cholecalciferol (Vitamin D3 -) 1,000 unit PO DAILY [facility] Last Admin: 12/08/19 11:26 Dose: 1,000 unit Documented by: Dexamethasone Sodium Phosphate (Decadron Injection -) 6 mg IVPUSH DAILY [facility] Last Admin: 12/08/19 12:30 Dose: 6 mg Documented by: Gabapentin (Neurontin -) 900 mg PO BID [facility] Last Admin: 12/08/19 11:26 Dose: 900 mg Documented by: Non-Formulary Medication 100 (mg/ Sodium Chloride) 250 mls @ 250 mls/hr IVPB DAILY [facility] Stop: 12/09/19 10:59 Last Admin: 12/08/19 10:30 Dose: 250 mls/hr Documented by: Azithromycin (Zithromax 500mg Ivpb (Pre-Docked)) 500 mg in 250 mls @ 250 mls/hr IVPB DAILY [facility] Last Admin: 12/08/19 11:27 Dose: 250 mls/hr Documented by: Ceftriaxone Sodium 2 gm/ (Dextrose) 100 mls @ 200 mls/hr IVPB DAILY [facility]; Prot ocol Last Admin: 12/08/19 11:26 Dose: 200 mls/hr Documented by: Insulin Aspart (Novolog Vial Sliding Scale -) 1 vial SQ ACHS [facility]; Protocol Last Admin: 12/08/19 12:35 Dose: 6 units Documented by: Mupirocin (Bactroban Ointment (For Decolonization) -) 1 applic NS BID [facility] Stop: 12/10/19 21:59 Last Admin: 12/08/19 11:26 Dose: 1 applic Documented by: Pantoprazole Sodium (Protonix -) 20 mg PO DAILY [facility] Last Admin: 12/08/19 11:26 Dose: 20 mg Documented by: Zinc Sulfate (Orazinc -) 220 mg PO BID [facility] Last Admin: 12/08/19 11:26 Dose: 220 mg Documented by: - Objective Vital Signs: Vital Signs Temperature 98.6 F 12/08/19 08:00 Pulse Rate 112 H 12/08/19 13:29 Respiratory Rate 30 H 12/08/19 13:29 Blood Pressure 141/88 12/08/19 13:29 O2 Sat by Pulse Oximetry (%) 96 12/08/19 13:29 Constitutional: Yes: No Distress Cardiovascular: Yes: Regular Rate and Rhythm, S1, S2 Respiratory: Yes: Diminished Gastrointestinal: Yes: Normal Bowel Sounds, Soft. No: Tenderness Edema: No Labs: CBC, BMP 12/08/19 05:50 12/08/19 05:50 INR, PTT INR 0.92 (0.83-1.09) 12/05/19 06:15 Assessment/Plan COVID-19 PNEUMONITIS ? SUPERIMPOSED BACTERIAL PNEUMONIA UTI E COLI UNCONTROLLED DM CONTINUE REMDESIVIR CEFTRIAXONE/ ZITHROMAX
[2019-12-08] MEDS ORDERED: ALBUTEROL SO4 HFA INHALER IH PRN (18:10)
[2019-12-08] MEDS ORDERED: INSULIN (NOVOLOG) ASPART 100 UNITS/ML 10ML VIAL ONE (21:05)
[2019-12-08] MEDS ORDERED: CHLORHEXIDINE GLUCONATE 4% CLEANSER FOR DECOLONIZATION TP SCH (22:00)
[2019-12-08] MEDS ORDERED: INSULIN (LEVEMIR) 100 UNITS/ML UNITS SQ SCH (22:00)
[2019-12-08] MEDS ORDERED: MUPIROCIN 2% TOPICAL OINTMENT FOR DECOLONIZATION NS SCH (22:00)
[2019-12-08 23:20] LABS: BLOOD UREA NITROGEN 16.2 mg/dL (7-18); CALCIUM 8.5 mg/dL (8.5-10.1); CREATININE 0.8 mg/dL (0.55-1.3); POTASSIUM 3.8 mmol/L (3.5-5.1)
[2019-12-09] MEDS: INSULIN SLIDING SCALE (NOVOLOG) 1 VIAL SQ SCH ×4 (06:18→22:26)
[2019-12-09] MEDS ORDERED: INSULIN (LEVEMIR) 100 UNITS/ML UNITS SQ ONE (06:45)
[2019-12-09 08:30] LABS: BASO % 0.4 % (0-2.0); EOS % 0.1 % (0-4.5); HEMATOCRIT 33.5 % (32.4-45.2); LYMPH % 11.4 % (8-40); MCH 26.3 pg (25.7-33.7); MEAN CELL VOLUME 79.9 fl (80-96); MEAN PLT VOLUME 8.4 fl (7.5-11.1); MONO % 11.3 % (3.8-10.2); NEUT % 76.8 % (42.8-82.8); PLATELET COUNT 427 K/MM3 (134-434); RDW 14.4 % (11.6-15.6); WHITE BLOOD COUNT 6.4 K/mm3 (4.0-10.0)
[2019-12-09] MEDS ORDERED: PT OWN MED DRAWER 7, Y5N ONE ×2 (09:05→19:23)
[2019-12-09] MEDS ORDERED: DEXTROSE 5%-WATER 100 ML IVPB ONE (09:06)
[2019-12-09 09:09] LABS: POTASSIUM 3.6 mmol/L (3.5-5.1)
[2019-12-09] MEDS: GABAPENTIN 300 MG CAPSULE PO SCH ×2 (09:16→21:47)
[2019-12-09] MEDS: ZINC SULFATE 220 MG CAPSULE (FP) PO SCH ×2 (09:16→21:44)
[2019-12-09] MEDS: APIXABAN 5 MG TABLET PO SCH ×2 (09:16→21:44)
[2019-12-09] MEDS: DEXAMETHASONE SOD PHOSPHATE 10 MG/1 ML VIAL IVPUSH SCH (09:16)
[2019-12-09] MEDS: ASCORBIC ACID 250 MG TABLET (FP) PO SCH ×2 (09:17→21:45)
[2019-12-09 09:30] LABS: ALBUMIN 1.6 g/dl (3.4-5.0); BILIRUBIN,TOTAL 0.3 mg/dL (0.2-1); BLOOD UREA NITROGEN 17.1 mg/dL (7-18); CALCIUM 8.7 mg/dL (8.5-10.1); CREATININE 0.7 mg/dL (0.55-1.3); MAGNESIUM 2.1 mg/dL (1.8-2.4); PHOSPHOROUS 2.8 mg/dL (2.5-4.9); TOT PROT 6.2 g/dl (6.4-8.2)
[2019-12-09] MEDS ORDERED: CHOLECALCIFEROL (VIT D3) 1,000 UNIT (25 MCG) TABLET PO SCH (10:00)
[2019-12-09] MEDS ORDERED: AZITHROMYCIN IVPB 500 MG/250 ML BAG IVPB SCH (10:00)
[2019-12-09] MEDS ORDERED: REMDESIVIR 100 MG in SODIUM CHLORIDE 230 ML IVPB SCH (10:00)
[2019-12-09] MEDS ORDERED: CEFTRIAXONE 2 GM in DEXTROSE 5%-WATER 100 ML IVPB SCH (10:00)
[2019-12-09] MEDS ORDERED: PANTOPRAZOLE 20 MG TABLET PO SCH (10:00)
[2019-12-09 10:16] LABS: ERYTHROCYTE SEDIMENTATION RATE 101 mm/hr (0-20)
[2019-12-09] MEDS ORDERED: ALBUTEROL SO4 HFA INHALER IH PRN (10:30)
[2019-12-09] MEDS ORDERED: methylPREDNISolone NA SUCC 40 MG/1 ML VIAL IVPUSH ONE (11:37)
--- NOTE | 2019-12-09 11:37 | PN ---
Progress Note (short form) - Note Progress Note: PULMONARY Now on NRB but denies shortness of breath. No cough or fevers. Vital Signs Period Temp Pulse Resp BP Sys/Aguilar Pulse Ox Last 24 Hr 98.4 F-98.8 F 85-112 20-30 125-153/68-88 82-100 Gen: NAD on NRB Heart: RRR Lung: decreased breath sounds at the bases Abd: soft, nontender Ext: no edema CBC, BMP 12/09/19 07:51 12/09/19 07:51 Active Medications Albuterol Sulfate (Ventolin Hfa Inhaler -) 2 puff IH Q4H PRN PRN Reason: SHORT OF BREATH/WHEEZING Apixaban (Eliquis -) 5 mg PO BID [facility] Ascorbic Acid (Vitamin C -) 250 mg PO BID [facility] Cholecalciferol (Vitamin D3 -) 1,000 unit PO DAILY [facility] Dexamethasone Sodium Phosphate (Decadron Injection -) 6 mg IVPUSH DAILY [facility] Gabapentin (Neurontin -) 900 mg PO BID [facility] Azithromycin (Zithromax 500mg Ivpb (Pre-Docked)) 500 mg in 250 mls @ 250 mls/hr IVPB DAILY [facility] Ceftriaxone Sodium 2 gm/ (Dextrose) 100 mls @ 200 mls/hr IVPB DAILY [facility]; Protocol Insulin Aspart (Novolog Vial Sliding Scale -) 1 vial SQ ACHS [facility]; Protocol Insulin Detemir (Levemir Vial) 25 units SQ HS [facility] Pantoprazole Sodium (Protonix -) 20 mg PO DAILY [facility] Zinc Sulfate (Orazinc -) 220 mg PO BID [facility] A/P COVID19 Pneumonitis DKA resolved UTI Sepsis Lactic Acidosis HTN DM - completed remdesivir - continue antibiotics - glucose control - will change decadron to solumedrol - taper Fio2 to keep SpO2 >90% - trend inflammatory markers - pulse oximetry monitoring
--- NOTE | 2019-12-09 14:00 | PN ---
Physical Exam: SUBJECTIVE: Patient seen and examined at bedside admitted for COVID pneumonitis, sat 91-91% on 100% NRB. Will transfer to telemetry for monitoring. OBJECTIVE: Vital Signs Period Temp Pulse Resp BP Sys/Aguilar Pulse Ox Last 24 Hr 98.4 F-98.8 F 85-101 20-30 125-153/68-88 82-100 GENERAL: AAOx3, on 100% VM, coughing HEAD: NCAT EYES: PERRL, EOMI ENT: dry mucous membranes. NECK: No JVD LUNGS: Diminished breath sounds at the bases, Poor inspiratory effort HEART: S1 S2 ABDOMEN: Soft, non-tender to palpation, not distended, + bowel sounds, no guarding, no rebound MUSCULOSKELETAL: No CVA tenderness. EXTREMITIES: No peripheral edema. NEUROLOGICAL: Non-focal PSYCHIATRIC: Cooperative. SKIN: Warm, dry Laboratory Results - last 24 hr 12/08/19 12/08/19 12/08/19 16:50 21:19 22:03 WBC RBC Hgb Hct MCV MCH MCHC RDW Plt Count MPV Absolute Neuts (auto) Neutrophils % Lymphocytes % Monocytes % Eosinophils % Basophils % Nucleated RBC % ESR D-Dimer Sodium Potassium Chloride Carbon Dioxide Anion Gap BUN Creatinine Est GFR (CKD-EPI)AfAm Est GFR (CKD-EPI)NonAf POC Glucometer 436 430 419 Random Glucose Calcium Phosphorus Magnesium Total Bilirubin AST ALT Alkaline Phosphatase LD Total Total Protein Albumin 12/08/19 12/09/19 12/09/19 22:46 00:13 05:56 WBC RBC Hgb Hct MCV MCH MCHC RDW Plt Count MPV Absolute Neuts (auto) Neutrophils % Lymphocytes % Monocytes % Eosinophils % Basophils % Nucleated RBC % ESR D-Dimer Sodium 137 Potassium 3.8 Chloride 106 Carbon Dioxide 23 Anion Gap 8 BUN 16.2 Creatinine 0.8 Est GFR (CKD-EPI)AfAm 101.04 Est GFR (CKD-EPI)NonAf 87.18 POC Glucometer 343 279 Random Glucose 431 H* Calcium 8.5 Phosphorus Magnesium Total Bilirubin AST ALT Alkaline Phosphatase LD Total Total Protein Albumin 12/09/19 12/09/19 12/09/19 07:51 07:51 07:51 WBC 6.4 RBC 4.20 Hgb 11.0 Hct 33.5 MCV 79.9 L MCH 26.3 MCHC 33.0 RDW 14.4 Plt Count 427 MPV 8.4 Absolute Neuts (auto) 4.9 Neutrophils % 76.8 Lymphocytes % 11.4 D Monocytes % 11.3 H Eosinophils % 0.1 Basophils % 0.4 Nucleated RBC % 0 ESR 101 H D-Dimer 1169 H Sodium 140 Potassium 3.6 Chloride 108 H Carbon Dioxide 24 Anion Gap 7 L BUN 17.1 Creatinine 0.7 Est GFR (CKD-EPI)AfAm 118.74 Est GFR (CKD-EPI)NonAf 102.45 POC Glucometer Random Glucose 258 H Calcium 8.7 Phosphorus 2.8 Magnesium 2.1 Total Bilirubin 0.3 AST 18 ALT 36 Alkaline Phosphatase 105 LD Total 256 H Total Protein 6.2 L Albumin 1.6 L 12/09/19 12:30 WBC RBC Hgb Hct MCV MCH MCHC RDW Plt Count MPV Absolute Neuts (auto) Neutrophils % Lymphocytes % Monocytes % Eosinophils % Basophils % Nucleated RBC % ESR D-Dimer Sodium Potassium Chloride Carbon Dioxide Anion Gap BUN Creatinine Est GFR (CKD-EPI)AfAm Est GFR (CKD-EPI)NonAf POC Glucometer 331 Random Glucose Calcium Phosphorus Magnesium Total Bilirubin AST ALT Alkaline Phosphatase LD Total Total Protein Albumin Active Medications Generic Name Dose Route Start Last Admin Trade Name Freq PRN Reason Stop Dose Admin Albuterol Sulfate 2 puff 12/09/19 10:30 Ventolin Hfa Inhaler - IH Q4H PRN SHORT OF BREATH/WHEEZING Apixaban 5 mg 12/09/19 22:00 Eliquis - PO BID [facility] Ascorbic Acid 250 mg 12/09/19 22:00 Vitamin C - PO BID [facility] Cholecalciferol 1,000 unit 12/10/19 10:00 Vitamin D3 - PO DAILY [facility] Gabapentin 900 mg 12/09/19 22:00 Neurontin - PO BID [facility] Azithromycin 500 mg in 250 mls @ 250 mls/hr 12/10/19 10:00 Zithromax 500mg Ivpb (Pre-Docked) IVPB DAILY [facility] Ceftriaxone Sodium 2 gm/ 100 mls @ 200 mls/hr 12/10/19 10:00 Dextrose IVPB DAILY [facility] Protocol Insulin Aspart 1 vial 12/09/19 11:00 12/09/19 12:31 Novolog Vial Sliding Scale - SQ 8 units ACHS [facility] Administration Protocol Insulin Detemir 25 units 12/09/19 22:00 Levemir Vial SQ HS [facility] Methylprednisolone Sodium Succinate 40 mg 08/01/20 22:00 Solu-Medrol - IVPUSH DAILY [facility] Pantoprazole Sodium 20 mg 12/10/19 10:00 Protonix - PO DAILY [facility] Zinc Sulfate 220 mg 12/09/19 22:00 Orazinc - PO BID [facility] ASSESSMENT/PLAN: 49 F COVID19 w/ pneumonitis DM Hyperglycemia HTN Gastroparesis Sepsis PE ruled out Plan: COnt. steroids Cont. Eliquis Supplemental O2 keep >90% Cont. Ceftriaxone/Azithromycin Evaluate for plasma if fevers persist Remdisivir x5 days Close cardiopulmonary monitoring DVT ppx: Eliquis Visit type - Emergency Visit Emergency Visit: Yes ED Registration Date: 12/05/19 Care time: The patient presented to the Emergency Department on the above date and was hospitalized for further evaluation of their emergent condition. - New Patient This patient is new to me today: Yes Date on this admission: 12/09/19 - Critical Care Critical Care patient: No - Discharge Referral Referred to [facility] No
--- NOTE | 2019-12-09 18:43 | PN ---
Progress Note, Physician History of Present Illness: AWAKE , ALERT LOW GRADE TEMP NOW ON NRB MASK BREATHING NON-LABORED - Current Medication List Current Medications: Active Medications Albuterol Sulfate (Ventolin Hfa Inhaler -) 2 puff IH Q4H PRN PRN Reason: SHORT OF BREATH/WHEEZING Apixaban (Eliquis -) 5 mg PO BID [facility] Ascorbic Acid (Vitamin C -) 250 mg PO BID [facility] Cholecalciferol (Vitamin D3 -) 1,000 unit PO DAILY [facility] Gabapentin (Neurontin -) 900 mg PO BID [facility] Azithromycin (Zithromax 500mg Ivpb (Pre-Docked)) 500 mg in 250 mls @ 250 mls/hr IVPB DAILY [facility] Ceftriaxone Sodium 2 gm/ (Dextrose) 100 mls @ 200 mls/hr IVPB DAILY [facility]; Protocol Insulin Aspart (Novolog Vial Sliding Scale -) 1 vial SQ ACHS [facility]; Protocol Last Admin: 12/09/19 17:51 Dose: 10 units Documented by: Insulin Detemir (Levemir Vial) 25 units SQ HS [facility] Methylprednisolone Sodium Succinate (Solu-Medrol -) 40 mg IVPUSH DAILY [facility] Pantoprazole Sodium (Protonix -) 20 mg PO DAILY [facility] Zinc Sulfate (Orazinc -) 220 mg PO BID [facility] - Objective Vital Signs: Vital Signs Temperature 97.0 F L 12/09/19 17:43 Pulse Rate 89 12/09/19 17:43 Respiratory Rate 20 12/09/19 17:43 Blood Pressure 154/94 12/09/19 17:43 O2 Sat by Pulse Oximetry (%) 88 L 12/09/19 17:43 Constitutional: Yes: No Distress Eyes: Yes: Conjunctiva Clear Cardiovascular: Yes: Regular Rate and Rhythm, S1, S2 Respiratory: Yes: Diminished Gastrointestinal: Yes: Normal Bowel Sounds, Soft Edema: No Labs: CBC, BMP 12/09/19 07:51 12/09/19 07:51 INR, PTT INR 0.92 (0.83-1.09) 12/05/19 06:15 Assessment/Plan COVID-19 PNEUMONITIS ? SUPERIMPOSED BACTERIAL PNEUMONIA UTI E COLI UNCONTROLLED DM CONTINUE REMDESIVIR CEFTRIAXONE/ ZITHROMAX
[2019-12-09] MEDS: methylPREDNISolone NA SUCC 40 MG/1 ML VIAL IVPUSH SCH (21:45)
[2019-12-09] MEDS ORDERED: INSULIN (LEVEMIR) 100 UNITS/ML UNITS SQ SCH (22:00)
[2019-12-10] MEDS ORDERED: INSULIN (LEVEMIR) 100 UNITS/ML UNITS SQ ONE (00:28)
[2019-12-10] MEDS: INSULIN SLIDING SCALE (NOVOLOG) 1 VIAL SQ SCH ×6 (00:35→22:38)
[2019-12-10] MEDS: ACETAMINOPHEN 325 MG TABLET (FP) PO PRN ×2 (00:36→22:38)
[2019-12-10] MEDS ORDERED: INSULIN (NOVOLOG) ASPART 100 UNITS/ML 10ML VIAL ONE ×2 (05:32→21:52)
[2019-12-10 07:50] LABS: BASO % 0.2 % (0-2.0); HEMATOCRIT 33.1 % (32.4-45.2); HEMOGLOBIN 11.1 GM/dL (10.7-15.3); LYMPH % 7.7 % (8-40); MCH 26.6 pg (25.7-33.7); MCHC 33.6 g/dl (32.0-36.0); MEAN CELL VOLUME 79.2 fl (80-96); MEAN PLT VOLUME 8.6 fl (7.5-11.1); MONO % 7.2 % (3.8-10.2); NEUT % 84.9 % (42.8-82.8); PLATELET COUNT 501 K/MM3 (134-434); RBC 4.18 M/mm3 (3.60-5.2); RDW 14.5 % (11.6-15.6); WHITE BLOOD COUNT 8.5 K/mm3 (4.0-10.0)
[2019-12-10 07:52] LABS: ALBUMIN 1.8 g/dl (3.4-5.0); BILIRUBIN,TOTAL 0.2 mg/dL (0.2-1); BLOOD UREA NITROGEN 20.5 mg/dL (7-18); CALCIUM 8.8 mg/dL (8.5-10.1); CREATININE 0.7 mg/dL (0.55-1.3); POTASSIUM 3.8 mmol/L (3.5-5.1); TOT PROT 6.4 g/dl (6.4-8.2)
[2019-12-10] MEDS ORDERED: DEXTROSE 5%-WATER 100 ML IVPB ONE (08:38)
[2019-12-10] MEDS ORDERED: PT OWN MED DRAWER 7, Y5N ONE (08:44)
[2019-12-10] MEDS: APIXABAN 5 MG TABLET PO SCH ×2 (09:47→22:38)
[2019-12-10] MEDS: ZINC SULFATE 220 MG CAPSULE (FP) PO SCH ×2 (09:47→22:00)
[2019-12-10] MEDS: methylPREDNISolone NA SUCC 40 MG/1 ML VIAL IVPUSH SCH (09:47)
[2019-12-10] MEDS: CHOLECALCIFEROL (VIT D3) 1,000 UNIT (25 MCG) TABLET PO SCH (09:47)
[2019-12-10] MEDS: PANTOPRAZOLE 20 MG TABLET PO SCH (09:47)
[2019-12-10] MEDS: ASCORBIC ACID 250 MG TABLET (FP) PO SCH ×2 (09:48→22:38)
[2019-12-10] MEDS: AZITHROMYCIN IVPB 500 MG/250 ML BAG IVPB SCH (09:48)
[2019-12-10] MEDS: CEFTRIAXONE 2 GM in DEXTROSE 5%-WATER 100 ML IVPB SCH (09:48)
[2019-12-10] MEDS: GABAPENTIN 300 MG CAPSULE PO SCH ×2 (09:48→22:37)
[2019-12-10] MEDS ORDERED: REMDESIVIR 100 MG in SODIUM CHLORIDE 230 ML IVPB SCH (10:00)
[2019-12-10] MEDS ORDERED: DEXAMETHASONE SOD PHOSPHATE 10 MG/1 ML VIAL IVPUSH SCH (10:00)
--- NOTE | 2019-12-10 12:20 | PN ---
Physical Exam: SUBJECTIVE: Patient seen and examined 12/10/19: nO CP, BUT STILL FEELS SOB WITH EXERTION, DENIES ANY COUGH, NO FEVERS, CHILLS, BREATHING IS ABOUT THE SAME; REPORTS SOME PAIN AND SWELLING IN HER LEGS OBJECTIVE: Vital Signs Period Temp Pulse Resp BP Sys/Aguilar Pulse Ox Last 24 Hr 97.0 F-98.5 F 87-97 20-24 133-154/70-98 88-100 GENERAL: The patient is awake, alert, and fully oriented, in no acute distress. ON 100%NRB, ABLE TO COMPLETE HER SENTENCES HEAD: Normal with no signs of trauma. EYES: extraocular movements intact, sclera anicteric, conjunctiva clear. No ptosis. ENT: Ears normal, nares patent, oropharynx clear without exudates, moist mucous membranes. NECK: Trachea midline, full range of motion, supple. LUNGS: Breath sounds equal, clear to auscultation bilaterally, no wheezes, no accessory muscle use. SCATTERED CRACKLES NIKKI HEART: Regular rate and rhythm, S1, S2 without murmur, rub or gallop. ABDOMEN: Soft, nontender, nondistended, normoactive bowel sounds, no guarding, no rebound, no hepatosplenomegaly, no masses. EXTREMITIES: 2+ pulses, warm, well-perfused, 1+ EDEMA NIKKI LE, TENDER IN THE [place] NIKKI NEUROLOGICAL: Cranial nerves II through XII grossly intact. Normal speech, gait not observed. PSYCH: Normal mood, normal affect. SKIN: Warm, dry, normal turgor, no rashes or lesions noted Laboratory Results - last 24 hr 12/09/19 12/09/19 12/09/19 07:51 12:30 17:16 WBC RBC Hgb Hct MCV MCH MCHC RDW Plt Count MPV Absolute Neuts (auto) Neutrophils % Lymphocytes % Monocytes % Eosinophils % Basophils % Nucleated RBC % D-Dimer Sodium Potassium Chloride Carbon Dioxide Anion Gap BUN Creatinine Est GFR (CKD-EPI)AfAm Est GFR (CKD-EPI)NonAf POC Glucometer 331 403 Random Glucose Calcium Ferritin Total Bilirubin AST ALT Alkaline Phosphatase LD Total C-Reactive Protein 7.8 H Total Protein Albumin 12/09/19 12/09/19 12/09/19 17:20 22:24 23:30 WBC RBC Hgb Hct MCV MCH MCHC RDW Plt Count MPV Absolute Neuts (auto) Neutrophils % Lymphocytes % Monocytes % Eosinophils % Basophils % Nucleated RBC % D-Dimer Sodium Potassium Chloride Carbon Dioxide Anion Gap BUN Creatinine Est GFR (CKD-EPI)AfAm Est GFR (CKD-EPI)NonAf POC Glucometer 378 410 428 Random Glucose Calcium Ferritin Total Bilirubin AST ALT Alkaline Phosphatase LD Total C-Reactive Protein Total Protein Albumin 12/10/19 12/10/19 12/10/19 01:16 05:34 05:34 WBC 8.5 RBC 4.18 Hgb 11.1 Hct 33.1 MCV 79.2 L MCH 26.6 MCHC 33.6 RDW 14.5 Plt Count 501 H MPV 8.6 Absolute Neuts (auto) 7.2 Neutrophils % 84.9 H Lymphocytes % 7.7 L D Monocytes % 7.2 Eosinophils % 0.0 D Basophils % 0.2 Nucleated RBC % 0 D-Dimer Sodium 139 Potassium 3.8 Chloride 110 H Carbon Dioxide 20 L Anion Gap 9 BUN 20.5 H Creatinine 0.7 Est GFR (CKD-EPI)AfAm 118.74 Est GFR (CKD-EPI)NonAf 102.45 POC Glucometer 425 Random Glucose 223 H Calcium 8.8 Ferritin 192.5 Total Bilirubin 0.2 AST 16 ALT 31 Alkaline Phosphatase 105 LD Total 265 H C-Reactive Protein 3.1 H Total Protein 6.4 Albumin 1.8 L 12/10/19 12/10/19 12/10/19 05:34 06:08 11:09 WBC RBC Hgb Hct MCV MCH MCHC RDW Plt Count MPV Absolute Neuts (auto) Neutrophils % Lymphocytes % Monocytes % Eosinophils % Basophils % Nucleated RBC % D-Dimer 1243 H Sodium Potassium Chloride Carbon Dioxide Anion Gap BUN Creatinine Est GFR (CKD-EPI)AfAm Est GFR (CKD-EPI)NonAf POC Glucometer 212 308 Random Glucose Calcium Ferritin Total Bilirubin AST ALT Alkaline Phosphatase LD Total C-Reactive Protein Total Protein Albumin Active Medications Generic Name Dose Route Start Last Admin Trade Name Freq PRN Reason Stop Dose Admin Acetaminophen 650 mg 12/10/19 00:29 12/10/19 00:36 Tylenol - PO 650 mg Q6H PRN Administration Fever Or Pain Albuterol Sulfate 2 puff 12/09/19 10:30 Ventolin Hfa Inhaler - IH Q4H PRN SHORT OF BREATH/WHEEZING Apixaban 5 mg 12/09/19 22:00 12/10/19 09:47 Eliquis - PO 5 mg BID [facility] Administration Ascorbic Acid 250 mg 12/09/19 22:00 12/10/19 09:48 Vitamin C - PO 250 mg BID [facility] Administration Cholecalciferol 1,000 unit 12/10/19 10:00 12/10/19 09:47 Vitamin D3 - PO 1,000 unit DAILY [facility] Administration Gabapentin 900 mg 12/09/19 22:00 12/10/19 09:48 Neurontin - PO 900 mg BID [facility] Administration Azithromycin 500 mg in 250 mls @ 250 mls/hr 12/10/19 10:00 12/10/19 09:48 Zithromax 500mg Ivpb (Pre-Docked) IVPB 250 mls/hr DAILY [facility] Administration Ceftriaxone Sodium 2 gm/ 100 mls @ 200 mls/hr 12/10/19 10:00 12/10/19 09:48 Dextrose IVPB 200 mls/hr DAILY [facility] Administration Protocol Insulin Aspart 1 vial 12/09/19 11:00 12/10/19 06:16 Novolog Vial Sliding Scale - SQ 4 units ACHS [facility] Administration Protocol Insulin Detemir 25 units 12/09/19 22:00 12/09/19 21:45 Levemir Vial SQ 25 units HS [facility] Administration Methylprednisolone Sodium Succinate 40 mg 12/09/19 22:00 12/10/19 09:47 Solu-Medrol - IVPUSH 40 mg DAILY [facility] Administration Pantoprazole Sodium 20 mg 12/10/19 10:00 12/10/19 09:47 Protonix - PO 20 mg DAILY [facility] Administration Zinc Sulfate 220 mg 12/09/19 22:00 12/10/19 09:47 Orazinc - PO 220 mg BID [facility] Administration ASSESSMENT/PLAN: 49 F WITH HX OF DM, HTN, GASTROPARESIS ADMITTED WITH SEPSIS AND HYPOXIC RESP FAILURE SECONDARY TO COVID PNEUMONITIS. *COVID PNEUMONITIS -- NOW WITH POSSIBLE CONCOMINANT BACTERIAL PNA? ON ROCEPHIN AND ZITHRO FINISHED REMDESEVIR STILL WITH HYPOXIA BUT SATS ARE STAYING 90-92% CONT STEROIDS INFLAMMATORY MARKERS TRENDING DOWN *UNCONTROLLED DM - WITH HYPERGLYCEMIA INCREASE LEVEMIR FURTHER CONT TO CHECK BGMS AND ADJUST NEEDED DIABETIC DIET LIKELY STEROID INDUCED WELL * LE EDEMA/CALF PAIN - CHECK DOPPLERS TO RULE OUT DVT IS ON ELIQUIS BUT STILL HIGH RISK *DVT PROPHY - ELIQUIS Problem List - Problems (1) Acute respiratory failure Code(s): J96.00 - ACUTE RESPIRATORY FAILURE, UNSP W HYPOXIA OR HYPERCAPNIA Qualifiers: Respiratory failure complication: hypoxia Qualified Code(s): J96.01 - Acute respiratory failure with hypoxia (2) Hyperglycemia due to diabetes mellitus Code(s): E11.65 - TYPE 2 DIABETES MELLITUS WITH HYPERGLYCEMIA Visit type - Emergency Visit Emergency Visit: Yes ED Registration Date: 12/05/19 Care time: The patient presented to the Emergency Department on the above date and was hospitalized for further evaluation of their emergent condition. - New Patient This patient is new to me today: Yes Date on this admission: 12/10/19 - Critical Care Critical Care patient: No - Discharge Referral Referred to [facility] Med P.C.: No
--- NOTE | 2019-12-10 12:43 | PN ---
Progress Note (short form) - Note Progress Note: PULMONARY Remains on NRB, states breathing is the same. No cough or fevers. c/o right foot pain. Vital Signs Period Temp Pulse Resp BP Sys/Aguilar Pulse Ox Last 24 Hr 97.0 F-98.5 F 87-97 20-24 133-154/70-98 88-100 Gen: NAD on NRB Heart: RRR Lung: decreased breath sounds at the bases Abd: soft, nontender Ext: no edema CBC, BMP 12/10/19 05:34 12/10/19 05:34 Laboratory Tests 12/05/19 12/07/19 12/08/19 06:15 06:05 05:50 C-Reactive Protein 12.0 H 5.5 H 8.0 H 12/09/19 12/10/19 07:51 05:34 C-Reactive Protein 7.8 H 3.1 H Active Medications Acetaminophen (Tylenol -) 650 mg PO Q6H PRN PRN Reason: Fever Or Pain Last Admin: 12/10/19 00:36 Dose: 650 mg Documented by: Albuterol Sulfate (Ventolin Hfa Inhaler -) 2 puff IH Q4H PRN PRN Reason: SHORT OF BREATH/WHEEZING Apixaban (Eliquis -) 5 mg PO BID [facility] Last Admin: 12/10/19 09:47 Dose: 5 mg Documented by: Ascorbic Acid (Vitamin C -) 250 mg PO BID [facility] Last Admin: 12/10/19 09:48 Dose: 250 mg Documented by: Cholecalciferol (Vitamin D3 -) 1,000 unit PO DAILY [facility] Last Admin: 12/10/19 09:47 Dose: 1,000 unit Documented by: Gabapentin (Neurontin -) 900 mg PO BID [facility] Last Admin: 12/10/19 09:48 Dose: 900 mg Documented by: Azithromycin (Zithromax 500mg Ivpb (Pre-Docked)) 500 mg in 250 mls @ 250 mls/hr IVPB DAILY [facility] Last Admin: 12/10/19 09:48 Dose: 250 mls/hr Documented by: Ceftriaxone Sodium 2 gm/ (Dextrose) 100 mls @ 200 mls/hr IVPB DAILY [facility]; Protocol Last Admin: 12/10/19 09:48 Dose: 200 mls/hr Documented by: Insulin Aspart (Novolog Vial Sliding Scale -) 1 vial SQ ACHS [facility]; Protocol Last Admin: 12/10/19 11:30 Dose: 8 units Documented by: Insulin Detemir (Levemir Vial) 25 units SQ HS [facility] Last Admin: 12/09/19 21:45 Dose: 25 units Documented by: Methylprednisolone Sodium Succinate (Solu-Medrol -) 40 mg IVPUSH DAILY [facility] Last Admin: 12/10/19 09:47 Dose: 40 mg Documented by: Pantoprazole Sodium (Protonix -) 20 mg PO DAILY [facility] Last Admin: 12/10/19 09:47 Dose: 20 mg Documented by: Zinc Sulfate (Orazinc -) 220 mg PO BID [facility] Last Admin: 12/10/19 09:47 Dose: 220 mg Documented by: A/P COVID19 Pneumonitis DKA resolved UTI Sepsis Lactic Acidosis HTN DM - completed remdesivir - continue antibiotics - glucose control - continue solumedrol - taper Fio2 to keep SpO2 >90% - trend inflammatory markers - pulse oximetry monitoring
--- NOTE | 2019-12-10 12:57 | PN ---
Progress Note, Physician History of Present Illness: AWAKE , ALERT IN BED AFEBRILE ON NRB MASK O2 SAT 94% BREATHING NON-LABORED - Current Medication List Current Medications: Active Medications Acetaminophen (Tylenol -) 650 mg PO Q6H PRN PRN Reason: Fever Or Pain Last Admin: 12/10/19 00:36 Dose: 650 mg Documented by: Albuterol Sulfate (Ventolin Hfa Inhaler -) 2 puff IH Q4H PRN PRN Reason: SHORT OF BREATH/WHEEZING Apixaban (Eliquis -) 5 mg PO BID [facility] Last Admin: 12/10/19 09:47 Dose: 5 mg Documented by: Ascorbic Acid (Vitamin C -) 250 mg PO BID [facility] Last Admin: 12/10/19 09:48 Dose: 250 mg Documented by: Cholecalciferol (Vitamin D3 -) 1,000 unit PO DAILY [facility] Last Admin: 12/10/19 09:47 Dose: 1,000 unit Documented by: Gabapentin (Neurontin -) 900 mg PO BID [facility] Last Admin: 12/10/19 09:48 Dose: 900 mg Documented by: Azithromycin (Zithromax 500mg Ivpb (Pre-Docked)) 500 mg in 250 mls @ 250 mls/hr IVPB DAILY [facility] Last Admin: 12/10/19 09:48 Dose: 250 mls/hr Documented by: Ceftriaxone Sodium 2 gm/ (Dextrose) 100 mls @ 200 mls/hr IVPB DAILY [facility]; Protocol Last Admin: 12/10/19 09:48 Dose: 200 mls/hr Documented by: Insulin Aspart (Novolog Vial Sliding Scale -) 1 vial SQ ACHS [facility]; Protocol Last Admin: 12/10/19 11:30 Dose: 8 units Documented by: Insulin Detemir (Levemir Vial) 25 units SQ HS [facility] Last Admin: 12/09/19 21:45 Dose: 25 units Documented by: Methylprednisolone Sodium Succinate (Solu-Medrol -) 40 mg IVPUSH DAILY [facility] Last Admin: 12/10/19 09:47 Dose: 40 mg Documented by: Pantoprazole Sodium (Protonix -) 20 mg PO DAILY [facility] Last Admin: 12/10/19 09:47 Dose: 20 mg Documented by: Zinc Sulfate (Orazinc -) 220 mg PO BID [facility] Last Admin: 12/10/19 09:47 Dose: 220 mg Documented by: - Objective Vital Signs: Vital Signs Temperature 97.8 F 12/10/19 10:00 Pulse Rate 97 H 12/10/19 10:00 Respiratory Rate 22 H 12/10/19 10:00 Blood Pressure 133/70 12/10/19 10:00 O2 Sat by Pulse Oximetry (%) 94 L 12/10/19 10:00 Constitutional: Yes: No Distress, Obese Cardiovascular: Yes: Regular Rate and Rhythm, S1, S2 Respiratory: Yes: CTA Bilaterally Gastrointestinal: Yes: Normal Bowel Sounds, Soft. No: Tenderness Edema: No Labs: CBC, BMP 12/10/19 05:34 12/10/19 05:34 INR, PTT INR 0.92 (0.83-1.09) 12/05/19 06:15 Assessment/Plan COVID-19 PNEUMONITIS ? SUPERIMPOSED BACTERIAL PNEUMONIA UTI E COLI UNCONTROLLED DM COMPLETED REMDESIVIR CEFTRIAXONE/ ZITHROMAX
[2019-12-10] MEDS: INSULIN (LEVEMIR) 100 UNITS/ML UNITS SQ SCH (22:39)
[2019-12-11] MEDS: INSULIN SLIDING SCALE (NOVOLOG) 1 VIAL SQ SCH ×4 (07:19→22:09)
[2019-12-11] MEDS ORDERED: DEXTROSE 5%-WATER 100 ML IVPB ONE (08:13)
[2019-12-11] MEDS: GABAPENTIN 300 MG CAPSULE PO SCH ×2 (09:10→22:09)
[2019-12-11] MEDS: AZITHROMYCIN IVPB 500 MG/250 ML BAG IVPB SCH (09:10)
[2019-12-11] MEDS: CEFTRIAXONE 2 GM in DEXTROSE 5%-WATER 100 ML IVPB SCH (09:10)
[2019-12-11] MEDS: APIXABAN 5 MG TABLET PO SCH ×2 (09:10→22:09)
[2019-12-11] MEDS: CHOLECALCIFEROL (VIT D3) 1,000 UNIT (25 MCG) TABLET PO SCH (09:10)
[2019-12-11] MEDS: methylPREDNISolone NA SUCC 40 MG/1 ML VIAL IVPUSH SCH (09:10)
[2019-12-11] MEDS: ZINC SULFATE 220 MG CAPSULE (FP) PO SCH ×2 (09:10→22:10)
[2019-12-11] MEDS: ASCORBIC ACID 250 MG TABLET (FP) PO SCH ×2 (09:10→22:10)
[2019-12-11] MEDS: PANTOPRAZOLE 20 MG TABLET PO SCH (09:10)
--- NOTE | 2019-12-11 15:27 | PN ---
Progress Note (short form) - Note Progress Note: Remains on NRB, but states breathing is better. No cough or fevers. No acute events overnight. Intake & Output 12/08/19 12/09/19 12/10/19 12/11/19 23:59 23:59 23:59 23:59 Intake Total 700 1454 1820 Balance 700 1454 1820 Last Vital Signs Temp Pulse Resp BP Pulse Ox 97.4 F L 97 H 22 H 126/74 96 12/11/19 14:02 12/11/19 14:02 12/11/19 14:02 12/11/19 14:02 12/11/19 11:55 Active Medications Acetaminophen (Tylenol -) 650 mg PO Q6H PRN PRN Reason: Fever Or Pain Last Admin: 12/10/19 22:38 Dose: 650 mg Documented by: Albuterol Sulfate (Ventolin Hfa Inhaler -) 2 puff IH Q4H PRN PRN Reason: SHORT OF BREATH/WHEEZING Apixaban (Eliquis -) 5 mg PO BID [facility] Last Admin: 12/11/19 09:10 Dose: 5 mg Documented by: Ascorbic Acid (Vitamin C -) 250 mg PO BID [facility] Last Admin: 12/11/19 09:10 Dose: 250 mg Documented by: Cholecalciferol (Vitamin D3 -) 1,000 unit PO DAILY [facility] Last Admin: 12/11/19 09:10 Dose: 1,000 unit Documented by: Gabapentin (Neurontin -) 900 mg PO BID [facility] Last Admin: 12/11/19 09:10 Dose: 900 mg Documented by: Azithromycin (Zithromax 500mg Ivpb (Pre-Docked)) 500 mg in 250 mls @ 250 mls/hr IVPB DAILY [facility] Last Admin: 12/11/19 09:10 Dose: 250 mls/hr Documented by: Ceftriaxone Sodium 2 gm/ (Dextrose) 100 mls @ 200 mls/hr IVPB DAILY [facility]; Protocol Last Admin: 12/11/19 09:10 Dose: 200 mls/hr Documented by: Insulin Aspart (Novolog Vial Sliding Scale -) 1 vial SQ ACHS [facility]; Protocol Last Admin: 12/11/19 11:00 Dose: 4 units Documented by: Insulin Detemir (Levemir Vial) 32 units SQ HS [facility] Last Admin: 12/10/19 22:39 Dose: 32 units Documented by: Methylprednisolone Sodium Succinate (Solu-Medrol -) 40 mg IVPUSH DAILY [facility] Last Admin: 12/11/19 09:10 Dose: 40 mg Documented by: Pantoprazole Sodium (Protonix -) 20 mg PO DAILY [facility] Last Admin: 12/11/19 09:10 Dose: 20 mg Documented by: Zinc Sulfate (Orazinc -) 220 mg PO BID [facility] Last Admin: 12/11/19 09:10 Dose: 220 mg Documented by: Gen: NAD on NRB Heart: RRR Lung: decreased breath sounds at the bases Abd: soft, nontender Ext: no edema Laboratory Results - last 24 hr 12/10/19 12/10/19 12/11/19 17:09 22:29 07:04 D-Dimer POC Glucometer 274 370 126 Ferritin LD Total C-Reactive Protein 12/11/19 12/11/19 12/11/19 10:57 12:10 12:10 D-Dimer 2142 H POC Glucometer 206 Ferritin 305.1 LD Total 335 H C-Reactive Protein 1.9 H A/P COVID19 Pneumonitis DKA resolved UTI Sepsis Lactic Acidosis HTN DM - completed remdesivir - continue antibiotics - glucose control - Steroids - taper Fio2 to keep SpO2 >90% - trend inflammatory markers - pulse oximetry monitoring Dr Rivas
--- NOTE | 2019-12-11 17:14 | PN ---
Physical Exam: SUBJECTIVE: Patient seen and examined. No acute events overnight. PAtient reports feeling better, although still short of breath. Trial of venti mask done today, but patient desaturated to the 80s. OBJECTIVE: Vital Signs Temperature 97.4 F L 12/11/19 14:02 Pulse Rate 97 H 12/11/19 14:02 Respiratory Rate 22 H 12/11/19 14:02 Blood Pressure 126/74 12/11/19 14:02 O2 Sat by Pulse Oximetry (%) 96 12/11/19 11:55 GENERAL: The patient is awake, alert, and fully oriented, on nonrebreather NECK: Trachea midline, full range of motion, supple. LUNGS: scattered rales bilaterally HEART: Regular rate and rhythm, S1, S2 ABDOMEN: Soft, nontender, nondistended, normoactive bowel sounds EXTREMITIES: 2+ pulses, warm, well-perfused, no edema. NEUROLOGICAL: Cranial nerves II through XII grossly intact. Normal speech PSYCH: Normal mood, normal affect. SKIN: Warm, dry, normal turgor Laboratory Results - last 24 hr 12/10/19 12/10/19 12/11/19 17:09 22:29 07:04 D-Dimer POC Glucometer 274 370 126 Ferritin LD Total C-Reactive Protein 12/11/19 12/11/19 12/11/19 10:57 12:10 12:10 D-Dimer 2142 H POC Glucometer 206 Ferritin 305.1 LD Total 335 H C-Reactive Protein 1.9 H 12/11/19 17:04 D-Dimer POC Glucometer 395 Ferritin LD Total C-Reactive Protein Active Medications Generic Name Dose Route Start Last Admin Trade Name Freq PRN Reason Stop Dose Admin Acetaminophen 650 mg 12/10/19 00:29 12/10/19 22:38 Tylenol - PO 650 mg Q6H PRN Administration Fever Or Pain Albuterol Sulfate 2 puff 12/09/19 10:30 Ventolin Hfa Inhaler - IH Q4H PRN SHORT OF BREATH/WHEEZING Apixaban 5 mg 12/09/19 22:00 12/11/19 09:10 Eliquis - PO 5 mg BID [facility] Administration Ascorbic Acid 250 mg 12/09/19 22:00 12/11/19 09:10 Vitamin C - PO 250 mg BID [facility] Administration Cholecalciferol 1,000 unit 12/10/19 10:00 12/11/19 09:10 Vitamin D3 - PO 1,000 unit DAILY [facility] Administration Gabapentin 900 mg 12/09/19 22:00 12/11/19 09:10 Neurontin - PO 900 mg BID [facility] Administration Azithromycin 500 mg in 250 mls @ 250 mls/hr 12/10/19 10:00 12/11/19 09:10 Zithromax 500mg Ivpb (Pre-Docked) IVPB 250 mls/hr DAILY [facility] Administration Ceftriaxone Sodium 2 gm/ 100 mls @ 200 mls/hr 12/10/19 10:00 12/11/19 09:10 Dextrose IVPB 200 mls/hr DAILY [facility] Administration Protocol Insulin Aspart 1 vial 12/09/19 11:00 12/11/19 17:08 Novolog Vial Sliding Scale - SQ 10 units ACHS [facility] Administration Protocol Insulin Detemir 32 units 12/10/19 22:00 12/10/19 22:39 Levemir Vial SQ 32 units HS [facility] Administration Methylprednisolone Sodium Succinate 40 mg 12/09/19 22:00 12/11/19 09:10 Solu-Medrol - IVPUSH 40 mg DAILY [facility] Administration Pantoprazole Sodium 20 mg 12/10/19 10:00 12/11/19 09:10 Protonix - PO 20 mg DAILY [facility] Administration Zinc Sulfate 220 mg 12/09/19 22:00 12/11/19 09:10 Orazinc - PO 220 mg BID [facility] Administration ASSESSMENT/PLAN: Patient is a 49 year old female with past medical history of DM, HTN, gastrop aresis, came in for SOB, admitted for COVID pneumonitis. #SEpsis 2/2 COVID pneumonitis #Acute hypoxic respiratory failure 2/2 COVID pneumonitis, ?possible concomitant bacterial pneumonia -Completed 5 doses of Remdesivir -IV Ceftriaxone and Azithromycin started on 12/09 -inflammatory markers trending down -blood cx, urine legionella/pneumonia negative -supplemental oxygen to keep SpO2>90% -Vit C/Zinc/Vit D3 -Pulm consulted REcommendations appreciated. -ID consulted. REcommendations appreciated #Uncontrolled DM -BGM ACHS -Insulin sliding scale implemented, will titrate as needed as patient is on steroid taper -Levemir 32u HS started overnight -hold home metformin -will continue to monitor #HTN -BP stable, not on any home meds -will continue to monitor #B/L LE edema, b/l plantar pain -LE doppler ordered, but could not be done due to patient's covid status -will keep legs elevated -gabapentin bid -keep legs elevated -on eliquis bid #FEN -Not on any standing fluids -Electrolytes wnl, routine bmp monitoring -Diabetic/sodium restricted diet #Prophylaxis -Eliquis 5mg bid #Disposition -full code -tele monitoring Visit type - Emergency Visit Emergency Visit: Yes ED Registration Date: 12/05/19 Care time: The patient presented to the Emergency Department on the above date and was hospitalized for further evaluation of their emergent condition. - New Patient This patient is new to me today: Yes Date on this admission: 12/11/19 - Critical Care Critical Care patient: No ATTENDING PHYSICIAN STATEMENT I saw and evaluated the patient. I reviewed the resident's note and discussed the case with the resident. I agree with the resident's findings and plan as documented. SUBJECTIVE: OBJECTIVE: ASSESSMENT AND PLAN:
[2019-12-11] MEDS: ACETAMINOPHEN 325 MG TABLET (FP) PO PRN (22:09)
[2019-12-11] MEDS: INSULIN (LEVEMIR) 100 UNITS/ML UNITS SQ SCH (22:09)
[2019-12-12] MEDS: INSULIN SLIDING SCALE (NOVOLOG) 1 VIAL SQ SCH ×4 (06:01→22:20)
[2019-12-12 06:56] LABS: BASO % 0.2 % (0-2.0); EOS % 0.5 % (0-4.5); HEMATOCRIT 33.2 % (32.4-45.2); HEMOGLOBIN 10.9 GM/dL (10.7-15.3); MCH 26.3 pg (25.7-33.7); MCHC 32.9 g/dl (32.0-36.0); MEAN CELL VOLUME 79.9 fl (80-96); MEAN PLT VOLUME 8.1 fl (7.5-11.1); MONO % 6.6 % (3.8-10.2); NEUT % 80.7 % (42.8-82.8); PLATELET COUNT 406 K/MM3 (134-434); RBC 4.16 M/mm3 (3.60-5.2); RDW 14.5 % (11.6-15.6); WHITE BLOOD COUNT 10.9 K/mm3 (4.0-10.0)
--- NOTE | 2019-12-12 08:01 | PN ---
Progress Note, Physician History of Present Illness: pulmonary alert,less dysoneic on 100% nrm,O sat 94% - Current Medication List Current Medications: Active Medications Acetaminophen (Tylenol -) 650 mg PO Q6H PRN PRN Reason: Fever Or Pain Last Admin: 12/11/19 22:09 Dose: 650 mg Documented by: Albuterol Sulfate (Ventolin Hfa Inhaler -) 2 puff IH Q4H PRN PRN Reason: SHORT OF BREATH/WHEEZING Apixaban (Eliquis -) 5 mg PO BID [facility] Last Admin: 12/11/19 22:09 Dose: 5 mg Documented by: Ascorbic Acid (Vitamin C -) 250 mg PO BID [facility] Last Admin: 12/11/19 22:10 Dose: 250 mg Documented by: Cholecalciferol (Vitamin D3 -) 1,000 unit PO DAILY [facility] Last Admin: 12/11/19 09:10 Dose: 1,000 unit Documented by: Gabapentin (Neurontin -) 900 mg PO BID [facility] Last Admin: 12/11/19 22:09 Dose: 900 mg Documented by: Azithromycin (Zithromax 500mg Ivpb (Pre-Docked)) 500 mg in 250 mls @ 250 mls/hr IVPB DAILY [facility] Last Admin: 12/11/19 09:10 Dose: 250 mls/hr Documented by: Ceftriaxone Sodium 2 gm/ (Dextrose) 100 mls @ 200 mls/hr IVPB DAILY [facility]; Protocol Last Admin: 12/11/19 09:10 Dose: 200 mls/hr Documented by: Insulin Aspart (Novolog Vial Sliding Scale -) 1 vial SQ ACHS [facility]; Protocol Last Admin: 12/12/19 06:01 Dose: 2 units Documented by: Insulin Detemir (Levemir Vial) 32 units SQ HS [facility] Last Admin: 12/11/19 22:09 Dose: 32 units Documented by: Methylprednisolone Sodium Succinate (Solu-Medrol -) 40 mg IVPUSH DAILY [facility] Last Admin: 12/11/19 09:10 Dose: 40 mg Documented by: Pantoprazole Sodium (Protonix -) 20 mg PO DAILY [facility] Last Admin: 12/11/19 09:10 Dose: 20 mg Documented by: Zinc Sulfate (Orazinc -) 220 mg PO BID [facility] Last Admin: 12/11/19 22:10 Dose: 220 mg Documented by: - Objective Vital Signs: Vital Signs Temperature 98.1 F 08/04/20 05:58 Pulse Rate 91 H 12/12/19 05:58 Respiratory Rate 18 12/12/19 05:58 Blood Pressure 140/96 12/12/19 05:58 O2 Sat by Pulse Oximetry (%) 92 L 12/12/19 05:58 Constitutional: Yes: Well Nourished, Calm, Other (dyspneic) Eyes: Yes: WNL HENT: Yes: WNL Neck: Yes: WNL Cardiovascular: Yes: Regular Rate and Rhythm, S1, S2 Respiratory: Yes: Rales (scattered zina crackles) Gastrointestinal: Yes: Normal Bowel Sounds, Soft Extremities: Yes: WNL Edema: No Labs: CBC, BMP 12/12/19 05:45 INR, PTT INR 0.92 (0.83-1.09) 12/05/19 06:15 Problem List - Problems (1) COVID-19 Code(s): U07.1 - COVID POSITIVE (2) Acute respiratory failure Code(s): J96.00 - ACUTE RESPIRATORY FAILURE, UNSP W HYPOXIA OR HYPERCAPNIA Qualifiers: Respiratory failure complication: hypoxia Qualified Code(s): J96.01 - Acute respiratory failure with hypoxia (3) Hyperglycemia due to diabetes mellitus Code(s): E11.65 - TYPE 2 DIABETES MELLITUS WITH HYPERGLYCEMIA (4) Sepsis Code(s): A41.9 - SEPSIS, UNSPECIFIED ORGANISM Qualifiers: Sepsis type: sepsis due to unspecified organism Sepsis acute organ dysfunction status: with acute organ dysfunction Severe sepsis acute organ dysfunction type: acute respiratory failure Acute respiratory failure type: with hypoxia Severe sepsis shock status: without septic shock Qualified Code(s): A41.9 - Sepsis, unspecified organism; R65.20 - Severe sepsis without septic shock; J96.01 - Acute respiratory failure with hypoxia (5) DKA (diabetic ketoacidoses) Code(s): E13.10 - OTH DIABETES MELLITUS WITH KETOACIDOSIS WITHOUT COMA Assessment/Plan A/P COVID19 Pneumonitis DKA resolved UTI Sepsis Lactic Acidosis HTN DM - completed remdesivir - antibiotics - glucose control - Steroids - taper Fio2 to keep SpO2 >90% - trend inflammatory markers - pulse oximetry monitoring DR GUNDERSON
[2019-12-12 08:04] LABS: CALCIUM 8.8 mg/dL (8.5-10.1); POTASSIUM 3.7 mmol/L (3.5-5.1)
[2019-12-12 08:05] LABS: ALBUMIN 1.7 g/dl (3.4-5.0); BILIRUBIN,TOTAL 0.2 mg/dL (0.2-1); BLOOD UREA NITROGEN 18.3 mg/dL (7-18); CREATININE 0.7 mg/dL (0.55-1.3); TOT PROT 5.8 g/dl (6.4-8.2)
[2019-12-12] MEDS ORDERED: DEXTROSE 5%-WATER 100 ML IVPB ONE (08:31)
[2019-12-12] MEDS: APIXABAN 5 MG TABLET PO SCH ×2 (09:54→22:07)
[2019-12-12] MEDS: GABAPENTIN 300 MG CAPSULE PO SCH ×2 (09:54→22:07)
[2019-12-12] MEDS: CHOLECALCIFEROL (VIT D3) 1,000 UNIT (25 MCG) TABLET PO SCH (09:55)
[2019-12-12] MEDS: ZINC SULFATE 220 MG CAPSULE (FP) PO SCH ×2 (09:55→22:07)
[2019-12-12] MEDS: methylPREDNISolone NA SUCC 40 MG/1 ML VIAL IVPUSH SCH (09:55)
[2019-12-12] MEDS: ASCORBIC ACID 250 MG TABLET (FP) PO SCH ×2 (09:55→22:08)
[2019-12-12] MEDS: PANTOPRAZOLE 20 MG TABLET PO SCH (09:55)
[2019-12-12] MEDS: ACETAMINOPHEN 325 MG TABLET (FP) PO PRN ×2 (09:56→22:17)
[2019-12-12] MEDS: AZITHROMYCIN IVPB 500 MG/250 ML BAG IVPB SCH (10:39)
[2019-12-12 11:11] LABS: ANISOCYTOSIS 0; MACROCYTOSIS 0; PLATELET ESTIMATE NORMAL
[2019-12-12] MEDS: CEFTRIAXONE 2 GM in DEXTROSE 5%-WATER 100 ML IVPB SCH (11:43)
--- NOTE | 2019-12-12 11:56 | PN ---
Teaching Attending Note Name of Resident: Italia Alcantar ATTENDING PHYSICIAN STATEMENT I saw and evaluated the patient. I reviewed the resident's note and discussed the case with the resident. I agree with the resident's findings and plan as documented. SUBJECTIVE: pt was seen and examined at bedside, on non rebreather. able to speak full sentences, not in acute distress OBJECTIVE: Last Vital Signs Temp Pulse Resp BP Pulse Ox 99.3 F 103 H 18 119/75 94 L 12/12/19 10:00 12/12/19 10:00 12/12/19 10:00 12/12/19 10:12/12/19 10:00 GENERAL: Awake, alert, and fully oriented, in no acute distress. HEENT: NC/AT, Not P/C/J, neck supple no JVD LUNGS: Breath sounds equal, clear to auscultation bilaterally. No wheezes, and no crackles. No accessory muscle use. HEART: tachy, normal S1 and S2 without murmur, rub or gallop. ABDOMEN: Soft, nontender, not distended, normoactive bowel sounds, no guarding, no rebound, no masses. No hepatomegaly or splenomegaly. EXTREMITIES: 2+ pulses, warm, well-perfused. No cyanosis. No clubbing. No peripheral edema. NEUROLOGICAL: no focal deficit CBCD WBC 10.9 K/mm3 (4.0-10.0) H 12/12/19 05:45 RBC 4.16 M/mm3 (3.60-5.2) 12/12/19 05:45 Hgb 10.9 GM/dL (10.7-15.3) 12/12/19 05:45 Hct 33.2 % (32.4-45.2) 12/12/19 05:45 MCV 79.9 fl (80-96) L 12/12/19 05:45 MCHC 32.9 g/dl (32.0-36.0) 12/12/19 05:45 RDW 14.5 % (11.6-15.6) 12/12/19 05:45 Plt Count 406 K/MM3 (134-434) 12/12/19 05:45 MPV 8.1 fl (7.5-11.1) 12/12/19 05:45 CMP Sodium 140 mmol/L (136-145) 12/12/19 05:45 Potassium 3.7 mmol/L (3.5-5.1) 12/12/19 05:45 Chloride 106 mmol/L (98-107) 12/12/19 05:45 Carbon Dioxide 25 mmol/L (21-32) 12/12/19 05:45 Anion Gap 8 MMOL/L (8-16) 12/12/19 05:45 BUN 18.3 mg/dL (7-18) H 12/12/19 05:45 Creatinine 0.7 mg/dL (0.55-1.3) 12/12/19 05:45 Calcium 8.8 mg/dL (8.5-10.1) 12/12/19 05:45 Total Bilirubin 0.2 mg/dL (0.2-1) 12/12/19 05:45 AST 64 U/L (15-37) H 12/12/19 05:45 ALT 82 U/L (13-61) H 12/12/19 05:45 Alkaline Phosphatase 131 U/L (45-117) H 12/12/19 05:45 Total Protein 5.8 g/dl (6.4-8.2) L 12/12/19 05:45 Albumin 1.7 g/dl (3.4-5.0) L 12/12/19 05:45 Current Medications Generic Name Dose Route Start Last Admin Trade Name Freq PRN Reason Stop Dose Admin Acetaminophen 650 mg 12/10/19 00:29 12/12/19 09:56 Tylenol - PO 650 mg Q6H PRN Administration Fever Or Pain Albuterol Sulfate 2 puff 12/09/19 10:30 Ventolin Hfa Inhaler - IH Q4H PRN SHORT OF BREATH/WHEEZING Apixaban 5 mg 12/09/19 22:00 12/12/19 09:54 Eliquis - PO 5 mg BID [facility] Administration Ascorbic Acid 250 mg 12/09/19 22:00 12/12/19 09:55 Vitamin C - PO 250 mg BID [facility] Administration Cholecalciferol 1,000 unit 12/10/19 10:00 12/12/19 09:55 Vitamin D3 - PO 1,000 unit DAILY [facility] Administration Gabapentin 900 mg 12/09/19 22:00 12/12/19 09:54 Neurontin - PO 900 mg BID [facility] Administration Azithromycin 500 mg in 250 mls @ 250 mls/hr 12/10/19 10:00 12/12/19 10:39 Zithromax 500mg Ivpb (Pre-Docked) IVPB 250 mls/hr DAILY [facility] Administration Ceftriaxone Sodium 2 gm/ 100 mls @ 200 mls/hr 12/10/19 10:00 12/12/19 11:43 Dextrose IVPB 200 mls/hr DAILY [facility] Administration Protocol Insulin Aspart 1 vial 12/09/19 11:00 12/12/19 06:01 Novolog Vial Sliding Scale - SQ 2 units ACHS [facility] Administration Protocol Insulin Detemir 20 units 12/12/19 22:00 Levemir Vial SQ 0700,2200 [facility] Methylprednisolone Sodium Succinate 40 mg 12/09/19 22:00 12/12/19 09:55 Solu-Medrol - IVPUSH 40 mg DAILY [facility] Administration Pantoprazole Sodium 20 mg 12/10/19 10:00 12/12/19 09:55 Protonix - PO 20 mg DAILY [facility] Administration Zinc Sulfate 220 mg 12/09/19 22:00 12/12/19 09:55 Orazinc - PO 220 mg BID [facility] Administration ASSESSMENT AND PLAN: # COVID19 Pneumonitis with sepsis - ICU downgrade 2 days ago - completed remdesivir - C/w IV antibiotics, Anticoagulation, O2 - Steroids - trend inflammatory markers - pulmonary and ID consult appreciated DM - DKA resolved - need to optimize glucose, will switch levemir bid plus with meal insulin UTI HTN obesity DVT prophylaxis (on Eliquis)
--- NOTE | 2019-12-12 13:55 | PN ---
Physical Exam: SUBJECTIVE: Patient seen and examined OBJECTIVE: Vital Signs Temperature 99.3 F 12/12/19 10:00 Pulse Rate 103 H 12/12/19 10:00 Respiratory Rate 18 12/12/19 10:00 Blood Pressure 119/75 12/12/19 10:00 O2 Sat by Pulse Oximetry (%) 94 L 12/12/19 10:00 GENERAL: The patient is awake, alert, and fully oriented, on nonrebreather NECK: Trachea midline, full range of motion, supple. LUNGS: scattered rales bilaterally HEART: Regular rate and rhythm, S1, S2 ABDOMEN: Soft, nontender, nondistended, normoactive bowel sounds EXTREMITIES: 2+ pulses, warm, well-perfused, no edema. NEUROLOGICAL: Cranial nerves II through XII grossly intact. Normal speech PSYCH: Normal mood, normal affect. SKIN: Warm, dry, normal turgor Laboratory Results - last 24 hr 12/11/19 12/11/19 12/12/19 17:04 22:00 05:42 WBC RBC Hgb Hct MCV MCH MCHC RDW Plt Count MPV Absolute Neuts (auto) Neutrophils % Neutrophils % (Manual) Band Neutrophils % Lymphocytes % Lymphocytes % (Manual) Monocytes % Monocytes % (Manual) Eosinophils % Eosinophils % (Manual) Basophils % Basophils % (Manual) Myelocytes % (Man) Promyelocytes % (Man) Blast Cells % (Manual) Nucleated RBC % Metamyelocytes Hypochromia Platelet Estimate Polychromasia Poikilocytosis Anisocytosis Microcytosis Macrocytosis Sodium Potassium Chloride Carbon Dioxide Anion Gap BUN Creatinine Est GFR (CKD-EPI)AfAm Est GFR (CKD-EPI)NonAf POC Glucometer 395 348 175 Random Glucose Calcium Ferritin Total Bilirubin AST ALT Alkaline Phosphatase LD Total C-Reactive Protein Total Protein Albumin 12/12/19 12/12/19 12/12/19 05:45 05:45 12:06 WBC 10.9 H RBC 4.16 Hgb 10.9 Hct 33.2 MCV 79.9 L MCH 26.3 MCHC 32.9 RDW 14.5 Plt Count 406 MPV 8.1 Absolute Neuts (auto) 8.8 H Neutrophils % 80.7 Neutrophils % (Manual) 77.0 Band Neutrophils % 0.0 Lymphocytes % 12.0 D Lymphocytes % (Manual) 12.0 Monocytes % 6.6 Monocytes % (Manual) 6 Eosinophils % 0.5 D Eosinophils % (Manual) 0.0 Basophils % 0.2 Basophils % (Manual) 0.0 Myelocytes % (Man) 3 H Promyelocytes % (Man) 0 Blast Cells % (Manual) 0 Nucleated RBC % 0 Metamyelocytes 1 Hypochromia 0 Platelet Estimate Normal Polychromasia 0 Poikilocytosis 0 Anisocytosis 0 Microcytosis 0 Macrocytosis 0 Sodium 140 Potassium 3.7 Chloride 106 Carbon Dioxide 25 Anion Gap 8 BUN 18.3 H Creatinine 0.7 Est GFR (CKD-EPI)AfAm 118.74 Est GFR (CKD-EPI)NonAf 102.45 POC Glucometer 204 Random Glucose 184 H Calcium 8.8 Ferritin 246.4 Total Bilirubin 0.2 AST 64 H ALT 82 H Alkaline Phosphatase 131 H LD Total 300 H C-Reactive Protein 5.1 H Total Protein 5.8 L Albumin 1.7 L Active Medications Generic Name Dose Route Start Last Admin Trade Name Freq PRN Reason Stop Dose Admin Acetaminophen 650 mg 12/10/19 00:29 12/12/19 09:56 Tylenol - PO 650 mg Q6H PRN Administration Fever Or Pain Albuterol Sulfate 2 puff 12/09/19 10:30 Ventolin Hfa Inhaler - IH Q4H PRN SHORT OF BREATH/WHEEZING Apixaban 5 mg 12/09/19 22:00 12/12/19 09:54 Eliquis - PO 5 mg BID [facility] Administration Ascorbic Acid 250 mg 12/09/19 22:00 12/12/19 09:55 Vitamin C - PO 250 mg BID [facility] Administration Cholecalciferol 1,000 unit 12/10/19 10:00 12/12/19 09:55 Vitamin D3 - PO 1,000 unit DAILY [facility] Administration Gabapentin 900 mg 12/09/19 22:00 12/12/19 09:54 Neurontin - PO 900 mg BID [facility] Administration Azithromycin 500 mg in 250 mls @ 250 mls/hr 12/10/19 10:00 12/12/19 10:39 Zithromax 500mg Ivpb (Pre-Docked) IVPB 250 mls/hr DAILY [facility] Administration Ceftriaxone Sodium 2 gm/ 100 mls @ 200 mls/hr 12/10/19 10:00 12/12/19 11:43 Dextrose IVPB 200 mls/hr DAILY [facility] Administration Protocol Insulin Aspart 1 vial 12/09/19 11:00 12/12/19 12:16 Novolog Vial Sliding Scale - SQ 4 units ACHS [facility] Administration Protocol Insulin Detemir 20 units 12/12/19 22:00 Levemir Vial SQ 0700,2200 [facility] Methylprednisolone Sodium Succinate 40 mg 12/09/19 22:00 12/12/19 09:55 Solu-Medrol - IVPUSH 40 mg DAILY [facility] Administration Pantoprazole Sodium 20 mg 12/10/19 10:00 12/12/19 09:55 Protonix - PO 20 mg DAILY [facility] Administration Zinc Sulfate 220 mg 12/09/19 22:00 12/12/19 09:55 Orazinc - PO 220 mg BID [facility] Administration ASSESSMENT/PLAN: Patient is a 49 year old female with past medical history of DM, HTN, gastroparesis, came in for SOB, admitted for COVID pneumonitis. #SEpsis 2/2 COVID pneumonitis #Acute hypoxic respiratory failure 2/2 COVID pneumonitis, ?possible concomitant bacterial pneumonia -Completed 5 doses of Remdesivir -IV Ceftriaxone and Azithromycin started on 12/09 -On IV steroids -inflammatory markers trending down -blood cx, urine legionella/pneumonia negative -supplemental oxygen to keep SpO2>90% -Vit C/Zinc/Vit D3 -Pulm consulted REcommendations appreciated. -ID consulted. REcommendations appreciated #Uncontrolled DM -BGM ACHS -Insulin sliding scale implemented, will titrate as needed as patient is on steroid taper -Levemir 32u hs switched to 20u bid -hold home metformin -will continue to monitor #HTN -BP stable, not on any home meds -will continue to monitor #B/L LE edema, b/l plantar pain -LE doppler ordered, but could not be done due to patient's covid status -will keep legs elevated -gabapentin bid -keep legs elevated -on eliquis bid #FEN -Not on any standing fluids -Electrolytes wnl, routine bmp monitoring -Diabetic/sodium restricted diet #Prophylaxis -Eliquis 5mg bid #Disposition -full code -tele monitoring Visit type - Emergency Visit Emergency Visit: Yes ED Registration Date: 12/05/19 Care time: The patient presented to the Emergency Department on the above date and was hospitalized for further evaluation of their emergent condition. - New Patient This patient is new to me today: No - Critical Care Critical Care patient: No ATTENDING PHYSICIAN STATEMENT I saw and evaluated the patient. I reviewed the resident's note and discussed the case with the resident. I agree with the resident's findings and plan as documented. SUBJECTIVE: OBJECTIVE: ASSESSMENT AND PLAN:
--- NOTE | 2019-12-12 15:56 | PN ---
Teaching Attending Note Name of Resident: Italia Alcantar ATTENDING PHYSICIAN STATEMENT I saw and evaluated the patient. I reviewed the resident's note and discussed the case with the resident. I agree with the resident's findings and plan as documented. SUBJECTIVE: Patient seen and examined at bedside, on NRB @50% saturating mid90s, NAD, VSS. OBJECTIVE: GENERAL: AAOx3, on 50% VM, NAD, speaking in full sentences HEAD: NCAT EYES: PERRL, EOMI ENT: dry mucous membranes. NECK: No JVD LUNGS: Diminished breath sounds at the bases, no accessory M use HEART: S1 S2 ABDOMEN: Soft, non-tender to palpation, not distended, + bowel sounds, no guarding, no rebound MUSCULOSKELETAL: No CVA tenderness. EXTREMITIES: No peripheral edema. NEUROLOGICAL: Non-focal PSYCHIATRIC: Cooperative. SKIN: Warm, dry Vital Signs - 24 hr 12/11/19 12/11/19 12/11/19 19:56 20:45 21:45 Temperature 98.5 F Pulse Rate 101 H Respiratory 19 Rate Blood Pressure 151/95 155/97 O2 Sat by Pulse 100 90 L Oximetry (%) 12/11/19 12/12/19 12/12/19 22:00 01:47 05:58 Temperature 98.2 F 98.1 F Pulse Rate 88 91 H Respiratory 18 18 Rate Blood Pressure 159/82 140/96 O2 Sat by Pulse 90 L 99 92 L Oximetry (%) 12/12/19 12/12/19 12/12/19 09:00 10:00 14:00 Temperature 99.3 F 98.3 F Pulse Rate 103 H 108 H Respiratory 18 18 20 Rate Blood Pressure 119/75 133/74 O2 Sat by Pulse 94 L 94 L 94 L Oximetry (%) Microbiology 12/05/19 06:00 Blood - Peripheral Venous Blood Culture - Final NO GROWTH AFTER 5 DAYS INCUBATION 12/05/19 06:15 Blood - Peripheral Venous Blood Culture - Final NO GROWTH AFTER 5 DAYS INCUBATION 12/08/19 22:46 Urine - Urine Clean Catch Legionella Antigen - Final 12/08/19 22:46 Urine - Urine Clean Catch Streptococcus pneumoniae Antigen (M - Final 12/05/19 05:49 Urine - Urine Clean Catch Urine Culture - Final Escherichia Coli 12/05/19 05:49 Urine - Urine Clean Catch Legionella Antigen - Final 12/05/19 05:49 Urine - Urine Clean Catch Streptococcus pneumoniae Antigen (M - Final Laboratory Results - last 24 hr 12/11/19 12/11/19 12/12/19 17:04 22:00 05:42 WBC RBC Hgb Hct MCV MCH MCHC RDW Plt Count MPV Absolute Neuts (auto) Neutrophils % Neutrophils % (Manual) Band Neutrophils % Lymphocytes % Lymphocytes % (Manual) Monocytes % Monocytes % (Manual) Eosinophils % Eosinophils % (Manual) Basophils % Basophils % (Manual) Myelocytes % (Man) Promyelocytes % (Man) Blast Cells % (Manual) Nucleated RBC % Metamyelocytes Hypochromia Platelet Estimate Polychromasia Poikilocytosis Anisocytosis Microcytosis Macrocytosis Sodium Potassium Chloride Carbon Dioxide Anion Gap BUN Creatinine Est GFR (CKD-EPI)AfAm Est GFR (CKD-EPI)NonAf POC Glucometer 395 348 175 Random Glucose Calcium Ferritin Total Bilirubin AST ALT Alkaline Phosphatase LD Total C-Reactive Protein Total Protein Albumin 12/12/19 12/12/19 12/12/19 05:45 05:45 12:06 WBC 10.9 H RBC 4.16 Hgb 10.9 Hct 33.2 MCV 79.9 L MCH 26.3 MCHC 32.9 RDW 14.5 Plt Count 406 MPV 8.1 Absolute Neuts (auto) 8.8 H Neutrophils % 80.7 Neutrophils % (Manual) 77.0 Band Neutrophils % 0.0 Lymphocytes % 12.0 D Lymphocytes % (Manual) 12.0 Monocytes % 6.6 Monocytes % (Manual) 6 Eosinophils % 0.5 D Eosinophils % (Manual) 0.0 Basophils % 0.2 Basophils % (Manual) 0.0 Myelocytes % (Man) 3 H Promyelocytes % (Man) 0 Blast Cells % (Manual) 0 Nucleated RBC % 0 Metamyelocytes 1 Hypochromia 0 Platelet Estimate Normal Polychromasia 0 Poikilocytosis 0 Anisocytosis 0 Microcytosis 0 Macrocytosis 0 Sodium 140 Potassium 3.7 Chloride 106 Carbon Dioxide 25 Anion Gap 8 BUN 18.3 H Creatinine 0.7 Est GFR (CKD-EPI)AfAm 118.74 Est GFR (CKD-EPI)NonAf 102.45 POC Glucometer 204 Random Glucose 184 H Calcium 8.8 Ferritin 246.4 Total Bilirubin 0.2 AST 64 H ALT 82 H Alkaline Phosphatase 131 H LD Total 300 H C-Reactive Protein 5.1 H Total Protein 5.8 L Albumin 1.7 L Home Medications Medication Instructions Recorded Insulin Glargine,Hum.rec.anlog 50 units SQ DAILY 09/18/16 [Lantus Solostar PEN (NF)] Ondansetron [Zofran Odt -] 4 mg SL TID #21 od.tablet 10/08/16 Amitriptyline HCl [Elavil -] 10 mg PO BID 12/05/19 Gabapentin [Neurontin -] 900 mg PO BID 12/05/19 Omeprazole 20 mg PO DAILY 12/05/19 metFORMIN HCL [Metformin HCl ER] 1,000 mg PO DAILY 12/05/19 Ergocalciferol (Vitamin D2) 50,000 units PO WEEKLY 12/08/19 [Vitamin D2] Current Medications Generic Name Dose Route Start Last Admin Trade Name Freq PRN Reason Stop Dose Admin Acetaminophen 650 mg 12/10/19 00:29 12/12/19 09:56 Tylenol - PO 650 mg Q6H PRN Administration Fever Or Pain Albuterol Sulfate 2 puff 12/09/19 10:30 Ventolin Hfa Inhaler - IH Q4H PRN SHORT OF BREATH/WHEEZING Apixaban 5 mg 12/09/19 22:00 12/12/19 09:54 Eliquis - PO 5 mg BID [facility] Administration Ascorbic Acid 250 mg 12/09/19 22:00 12/12/19 09:55 Vitamin C - PO 250 mg BID [facility] Administration Cholecalciferol 1,000 unit 12/10/19 10:00 12/12/19 09:55 Vitamin D3 - PO 1,000 unit DAILY [facility] Administration Gabapentin 900 mg 12/09/19 22:00 12/12/19 09:54 Neurontin - PO 900 mg BID [facility] Administration Azithromycin 500 mg in 250 mls @ 250 mls/hr 12/10/19 10:00 12/12/19 10:39 Zithromax 500mg Ivpb (Pre-Docked) IVPB 250 mls/hr DAILY [facility] Administration Ceftriaxone Sodium 2 gm/ 100 mls @ 200 mls/hr 12/10/19 10:00 12/12/19 11:43 Dextrose IVPB 200 mls/hr DAILY [facility] Administration Protocol Insulin Aspart 1 vial 12/09/19 11:00 12/12/19 12:16 Novolog Vial Sliding Scale - SQ 4 units ACHS [facility] Administration Protocol Insulin Detemir 20 units 12/12/19 22:00 Levemir Vial SQ 0700,2200 [facility] Methylprednisolone Sodium Succinate 40 mg 12/09/19 22:00 12/12/19 09:55 Solu-Medrol - IVPUSH 40 mg DAILY [facility] Administration Pantoprazole Sodium 20 mg 12/10/19 10:00 12/12/19 09:55 Protonix - PO 20 mg DAILY [facility] Administration Zinc Sulfate 220 mg 12/09/19 22:00 12/12/19 09:55 Orazinc - PO 220 mg BID [facility] Administration ASSESSMENT AND PLAN: 49 F COVID19 w/ pneumonitis Hypoxemia T2DM Steroid induced hyperglycemia HTN Gastroparesis Sepsis PE ruled out Plan: COnt. steroids Cont. Eliquis Supplement PPI Supplemental O2 keep >90% Cont. Ceftriaxone/Azithromycin Evaluate for plasma if fevers persist s/p Remdisivir course x5 days Close cardiopulmonary monitoring DVT ppx: Eliquis
[2019-12-12] MEDS ORDERED: INSULIN (LEVEMIR) 100 UNITS/ML UNITS SQ SCH ×2 (22:00)
[2019-12-13] MEDS ORDERED: INSULIN (LEVEMIR) 100 UNITS/ML UNITS SQ SCH ×2 (07:00)
[2019-12-13] MEDS: INSULIN SLIDING SCALE (NOVOLOG) 1 VIAL SQ SCH ×4 (07:17→22:25)
[2019-12-13 08:21] LABS: BASO % 0.3 % (0-2.0); EOS % 0.4 % (0-4.5); HEMATOCRIT 36.2 % (32.4-45.2); HEMOGLOBIN 11.7 GM/dL (10.7-15.3); MCH 26.2 pg (25.7-33.7); MCHC 32.3 g/dl (32.0-36.0); MEAN PLT VOLUME 8.1 fl (7.5-11.1); MONO % 6.5 % (3.8-10.2); NEUT % 82.8 % (42.8-82.8); PLATELET COUNT 380 K/MM3 (134-434); RBC 4.46 M/mm3 (3.60-5.2); RDW 14.9 % (11.6-15.6); WHITE BLOOD COUNT 13.2 K/mm3 (4.0-10.0)
[2019-12-13 08:49] LABS: ALBUMIN 1.8 g/dl (3.4-5.0); BLOOD UREA NITROGEN 17.3 mg/dL (7-18); CALCIUM 8.9 mg/dL (8.5-10.1)
[2019-12-13] MEDS ORDERED: DEXTROSE 5%-WATER 100 ML IVPB ONE (08:50)
[2019-12-13 08:54] LABS: BILIRUBIN,TOTAL 0.3 mg/dL (0.2-1); CREATININE 0.7 mg/dL (0.55-1.3); TOT PROT 6.4 g/dl (6.4-8.2)
[2019-12-13] MEDS: CEFTRIAXONE 2 GM in DEXTROSE 5%-WATER 100 ML IVPB SCH (09:02)
[2019-12-13] MEDS: AZITHROMYCIN IVPB 500 MG/250 ML BAG IVPB SCH (09:02)
[2019-12-13] MEDS: methylPREDNISolone NA SUCC 40 MG/1 ML VIAL IVPUSH SCH ×2 (09:03→22:24)
[2019-12-13] MEDS: PANTOPRAZOLE 20 MG TABLET PO SCH (09:03)
[2019-12-13] MEDS: ZINC SULFATE 220 MG CAPSULE (FP) PO SCH ×2 (09:03→22:24)
[2019-12-13] MEDS: CHOLECALCIFEROL (VIT D3) 1,000 UNIT (25 MCG) TABLET PO SCH (09:03)
[2019-12-13] MEDS: ASCORBIC ACID 250 MG TABLET (FP) PO SCH ×2 (09:03→22:24)
[2019-12-13] MEDS: APIXABAN 5 MG TABLET PO SCH ×2 (09:07→22:24)
[2019-12-13] MEDS: GABAPENTIN 300 MG CAPSULE PO SCH ×2 (09:07→22:23)
[2019-12-13 09:38] LABS: ANISOCYTOSIS 0; MACROCYTOSIS 0; PLATELET ESTIMATE NORMAL
--- NOTE | 2019-12-13 11:06 | PN ---
Progress Note, Physician History of Present Illness: pulmonary alert,comfortable on 100%nrm O2 sat 95% - Current Medication List Current Medications: Active Medications Acetaminophen (Tylenol -) 650 mg PO Q6H PRN PRN Reason: Fever Or Pain Last Admin: 12/12/19 22:17 Dose: 650 mg Documented by: Albuterol Sulfate (Ventolin Hfa Inhaler -) 2 puff IH Q4H PRN PRN Reason: SHORT OF BREATH/WHEEZING Apixaban (Eliquis -) 5 mg PO BID [facility] Last Admin: 12/13/19 09:07 Dose: 5 mg Documented by: Ascorbic Acid (Vitamin C -) 250 mg PO BID [facility] Last Admin: 12/13/19 09:03 Dose: 250 mg Documented by: Cholecalciferol (Vitamin D3 -) 1,000 unit PO DAILY [facility] Last Admin: 12/13/19 09:03 Dose: 1,000 unit Documented by: Gabapentin (Neurontin -) 900 mg PO BID [facility] Last Admin: 12/13/19 09:07 Dose: 900 mg Documented by: Azithromycin (Zithromax 500mg Ivpb (Pre-Docked)) 500 mg in 250 mls @ 250 mls/hr IVPB DAILY [facility] Last Admin: 12/13/19 09:02 Dose: 250 mls/hr Documented by: Ceftriaxone Sodium 2 gm/ (Dextrose) 100 mls @ 200 mls/hr IVPB DAILY [facility]; Protocol Last Admin: 12/13/19 09:02 Dose: 200 mls/hr Documented by: Insulin Aspart (Novolog Vial Sliding Scale -) 1 vial SQ ACHS [facility]; Protocol Last Admin: 12/13/19 07:17 Dose: 4 units Documented by: Insulin Detemir (Levemir Vial) 20 units SQ HS [facility] Last Admin: 12/12/19 22:18 Dose: 20 units Documented by: Insulin Detemir (Levemir Vial) 30 units SQ AM [facility] Last Admin: 12/13/19 07:16 Dose: 30 units Documented by: Methylprednisolone Sodium Succinate (Solu-Medrol -) 40 mg IVPUSH DAILY [facility] Last Admin: 12/13/19 09:03 Dose: 40 mg Documented by: Pantoprazole Sodium (Protonix -) 20 mg PO DAILY [facility] Last Admin: 12/13/19 09:03 Dose: 20 mg Documented by: Zinc Sulfate (Orazinc -) 220 mg PO BID [facility] Last Admin: 12/13/19 09:03 Dose: 220 mg Documented by: - Objective Vital Signs: Vital Signs Temperature 99.4 F 12/13/19 10:00 Pulse Rate 125 H 12/13/19 10:00 Respiratory Rate 26 H 12/13/19 10:00 Blood Pressure 144/84 12/13/19 10:00 O2 Sat by Pulse Oximetry (%) 95 12/13/19 10:00 Constitutional: Yes: Well Nourished, Calm Eyes: Yes: WNL HENT: Yes: WNL Neck: Yes: WNL Cardiovascular: Yes: Tachycardia, S1, S2 Respiratory: Yes: Diminished Gastrointestinal: Yes: Normal Bowel Sounds, Soft Extremities: Yes: WNL Edema: No Labs: CBC, BMP 12/13/19 07:50 12/13/19 07:50 INR, PTT INR 0.92 (0.83-1.09) 12/05/19 06:15 Laboratory Tests 12/11/19 12/13/19 12:10 07:50 D-Dimer 2142 H Ferritin 237.2 LD Total 319 H C-Reactive Protein 7.7 H Problem List - Problems (1) COVID-19 Code(s): U07.1 - COVID POSITIVE (2) Acute respiratory failure Code(s): J96.00 - ACUTE RESPIRATORY FAILURE, UNSP W HYPOXIA OR HYPERCAPNIA Qualifiers: Respiratory failure complication: hypoxia Qualified Code(s): J96.01 - Acute respiratory failure with hypoxia (3) Hyperglycemia due to diabetes mellitus Code(s): E11.65 - TYPE 2 DIABETES MELLITUS WITH HYPERGLYCEMIA (4) Sepsis Code(s): A41.9 - SEPSIS, UNSPECIFIED ORGANISM Qualifiers: Sepsis type: sepsis due to unspecified organism Sepsis acute organ dysfunction status: with acute organ dysfunction Severe sepsis acute organ dysfunction type: acute respiratory failure Acute respiratory failure type: with hypoxia Severe sepsis shock status: without septic shock Qualified Code(s): A41.9 - Sepsis, unspecified organism; R65.20 - Severe sepsis without septic shock; J96.01 - Acute respiratory failure with hypoxia (5) DKA (diabetic ketoacidoses) Code(s): E13.10 - OTH DIABETES MELLITUS WITH KETOACIDOSIS WITHOUT COMA Assessment/Plan A/P COVID19 Pneumonitis DKA resolved UTI Sepsis Lactic Acidosis HTN DM - completed remdesivir - antibiotics - glucose control - medrol 40 bid - taper Fio2 to keep SpO2 >90% - trend inflammatory markers - pulse oximetry monitoring DR GUNDERSON
--- NOTE | 2019-12-13 12:41 | PN ---
Progress Note, Physician History of Present Illness: AWAKE , ALERT IN BED AFEBRILE BREATHING NON-LABORED DESATS OFF NRB MASK LOW GRADE TEMP ELEVATED WBC LIKELY STEROID-INDUCED - Current Medication List Current Medications: Active Medications Acetaminophen (Tylenol -) 650 mg PO Q6H PRN PRN Reason: Fever Or Pain Last Admin: 12/12/19 22:17 Dose: 650 mg Documented by: Albuterol Sulfate (Ventolin Hfa Inhaler -) 2 puff IH Q4H PRN PRN Reason: SHORT OF BREATH/WHEEZING Apixaban (Eliquis -) 5 mg PO BID [facility] Last Admin: 12/13/19 09:07 Dose: 5 mg Documented by: Ascorbic Acid (Vitamin C -) 250 mg PO BID [facility] Last Admin: 12/13/19 09:03 Dose: 250 mg Documented by: Cholecalciferol (Vitamin D3 -) 1,000 unit PO DAILY [facility] Last Admin: 12/13/19 09:03 Dose: 1,000 unit Documented by: Gabapentin (Neurontin -) 900 mg PO BID [facility] Last Admin: 12/13/19 09:07 Dose: 900 mg Documented by: Azithromycin (Zithromax 500mg Ivpb (Pre-Docked)) 500 mg in 250 mls @ 250 mls/hr IVPB DAILY [facility] Last Admin: 12/13/19 09:02 Dose: 250 mls/hr Documented by: Ceftriaxone Sodium 2 gm/ (Dextrose) 100 mls @ 200 mls/hr IVPB DAILY [facility]; Protocol Last Admin: 12/13/19 09:02 Dose: 200 mls/hr Documented by: Insulin Aspart (Novolog Vial Sliding Scale -) 1 vial SQ ACHS [facility]; Protocol Last Admin: 12/13/19 11:22 Dose: 6 units Documented by: Insulin Detemir (Levemir Vial) 20 units SQ HS [facility] Last Admin: 12/12/19 22:18 Dose: 20 units Documented by: Insulin Detemir (Levemir Vial) 30 units SQ AM [facility] Last Admin: 12/13/19 07:16 Dose: 30 units Documented by: Methylprednisolone Sodium Succinate (Solu-Medrol -) 40 mg IVPUSH BID [facility] Pantoprazole Sodium (Protonix -) 20 mg PO DAILY [facility] Last Admin: 12/13/19 09:03 Dose: 20 mg Documented by: Zinc Sulfate (Orazinc -) 220 mg PO BID [facility] Last Admin: 12/13/19 09:03 Dose: 220 mg Documented by: - Objective Vital Signs: Vital Signs Temperature 99.4 F 12/13/19 10:00 Pulse Rate 125 H 12/13/19 10:00 Respiratory Rate 26 H 12/13/19 10:00 Blood Pressure 144/84 12/13/19 10:00 O2 Sat by Pulse Oximetry (%) 95 12/13/19 10:00 Constitutional: Yes: No Distress Eyes: Yes: Conjunctiva Clear Cardiovascular: Yes: Regular Rate and Rhythm, S1, S2 Respiratory: Yes: Rhonchi Gastrointestinal: Yes: Normal Bowel Sounds, Soft. No: Tenderness Labs: CBC, BMP 12/13/19 07:50 12/13/19 07:50 INR, PTT INR 0.92 (0.83-1.09) 12/05/19 06:15 Assessment/Plan COVID-19 PNEUMONITIS ? SUPERIMPOSED BACTERIAL PNEUMONIA UTI E COLI UNCONTROLLED DM DESATS OFF NRB MASK INFLAMMATORY MARKERS REMAIN ELEVATED COMPLETED REMDESIVIR CEFTRIAXONE/ ZITHROMAX FOLLOW UP CXR ORDERED DISCUSSED WITH PULMONARY
--- NOTE | 2019-12-13 13:23 | PN ---
Teaching Attending Note Name of Resident: Italia Alcantar ATTENDING PHYSICIAN STATEMENT I saw and evaluated the patient. I reviewed the resident's note and discussed the case with the resident. I agree with the resident's findings and plan as documented. SUBJECTIVE: pt seen and examined at bedside, denies complains, feeling better today OBJECTIVE: Last Vital Signs Temp Pulse Resp BP Pulse Ox 99.4 F 125 H 26 H 144/84 95 12/13/19 10:00 12/13/19 10:00 12/13/19 10:00 12/13/19 10:00 12/13/19 10:00 GENERAL: Awake, alert, and fully oriented, in no acute distress. HEENT: NC/AT, Not P/C/J, neck supple no JVD LUNGS: Breath sounds equal, clear to auscultation bilaterally. No wheezes, and no crackles. No accessory muscle use. HEART: tachy, normal S1 and S2 without murmur, rub or gallop. ABDOMEN: Soft, nontender, not distended, normoactive bowel sounds, no guarding, no rebound, no masses. No hepatomegaly or splenomegaly. EXTREMITIES: 2+ pulses, warm, well-perfused. No cyanosis. No clubbing. No peripheral edema. NEUROLOGICAL: no focal deficit CBCD WBC 13.2 K/mm3 (4.0-10.0) H 12/13/19 07:50 RBC 4.46 M/mm3 (3.60-5.2) 12/13/19 07:50 Hgb 11.7 GM/dL (10.7-15.3) 12/13/19 07:50 Hct 36.2 % (32.4-45.2) 12/13/19 07:50 MCV 81.0 fl (80-96) 12/13/19 07:50 MCHC 32.3 g/dl (32.0-36.0) 12/13/19 07:50 RDW 14.9 % (11.6-15.6) 12/13/19 07:50 Plt Count 380 K/MM3 (134-434) 12/13/19 07:50 MPV 8.1 fl (7.5-11.1) 12/13/19 07:50 CMP Sodium 139 mmol/L (136-145) 12/13/19 07:50 Potassium 4.0 mmol/L (3.5-5.1) 12/13/19 07:50 Chloride 104 mmol/L (98-107) 12/13/19 07:50 Carbon Dioxide 27 mmol/L (21-32) 12/13/19 07:50 Anion Gap 8 MMOL/L (8-16) 12/13/19 07:50 BUN 17.3 mg/dL (7-18) 12/13/19 07:50 Creatinine 0.7 mg/dL (0.55-1.3) 12/13/19 07:50 Random Glucose 199 mg/dL (74-106) H 12/13/19 07:50 Calcium 8.9 mg/dL (8.5-10.1) 12/13/19 07:50 Total Bilirubin 0.3 mg/dL (0.2-1) 12/13/19 07:50 AST 43 U/L (15-37) H 12/13/19 07:50 ALT 102 U/L (13-61) H 12/13/19 07:50 Alkaline Phosphatase 159 U/L (45-117) H 12/13/19 07:50 Total Protein 6.4 g/dl (6.4-8.2) 12/13/19 07:50 Albumin 1.8 g/dl (3.4-5.0) L 12/13/19 07:50 CARDIAC ENZYMES Troponin I < 0.02 ng/ml (0.00-0.05) 12/05/19 06:15 Active Medications Acetaminophen (Tylenol -) 650 mg PO Q6H PRN PRN Reason: Fever Or Pain Last Admin: 12/12/19 22:17 Dose: 650 mg Documented by: Albuterol Sulfate (Ventolin Hfa Inhaler -) 2 puff IH Q4H PRN PRN Reason: SHORT OF BREATH/WHEEZING Apixaban (Eliquis -) 5 mg PO BID [facility] Last Admin: 12/13/19 09:07 Dose: 5 mg Documented by: Ascorbic Acid (Vitamin C -) 250 mg PO BID [facility] Last Admin: 12/13/19 09:03 Dose: 250 mg Documented by: Cholecalciferol (Vitamin D3 -) 1,000 unit PO DAILY [facility] Last Admin: 12/13/19 09:03 Dose: 1,000 unit Documented by: Gabapentin (Neurontin -) 900 mg PO BID [facility] Last Admin: 12/13/19 09:07 Dose: 900 mg Documented by: Azithromycin (Zithromax 500mg Ivpb (Pre-Docked)) 500 mg in 250 mls @ 250 mls/hr IVPB DAILY [facility] Last Admin: 12/13/19 09:02 Dose: 250 mls/hr Documented by: Ceftriaxone Sodium 2 gm/ (Dextrose) 100 mls @ 200 mls/hr IVPB DAILY [facility]; Protocol Last Admin: 12/13/19 09:02 Dose: 200 mls/hr Documented by: Insulin Aspart (Novolog Vial Sliding Scale -) 1 vial SQ ACHS [facility]; Protocol Last Admin: 12/13/19 11:22 Dose: 6 units Documented by: Insulin Detemir (Levemir Vial) 20 units SQ HS [facility] Last Admin: 12/12/19 22:18 Dose: 20 units Documented by: Insulin Detemir (Levemir Vial) 30 units SQ AM [facility] Last Admin: 12/13/19 07:16 Dose: 30 units Documented by: Methylprednisolone Sodium Succinate (Solu-Medrol -) 40 mg IVPUSH BID [facility] Pantoprazole Sodium (Protonix -) 20 mg PO DAILY [facility] Last Admin: 12/13/19 09:03 Dose: 20 mg Documented by: Zinc Sulfate (Orazinc -) 220 mg PO BID [facility] Last Admin: 12/13/19 09:03 Dose: 220 mg Documented by: ASSESSMENT AND PLAN: 49 YO Lady with Mhx of DM, HTN, Obesity, admitted for COVID19 pneumonitis # COVID19 Pneumonitis with sepsis - completed remdesivir - C/w IV antibiotics, Anticoagulation, O2 - Steroids - trend inflammatory markers - pulmonary and ID consult appreciated - encourage to ambulate as tolerated DM - DKA resolved - levemir bid plus with meal insulin LFT trended up UTI HTN obesity DVT prophylaxis (on Eliquis)
--- NOTE | 2019-12-13 13:35 | PN ---
Physical Exam: SUBJECTIVE: Patient seen and examined. Still desats on venti. OBJECTIVE: Vital Signs Temperature 99.4 F 12/13/19 10:00 Pulse Rate 125 H 12/13/19 10:00 Respiratory Rate 26 H 12/13/19 10:00 Blood Pressure 144/84 12/13/19 10:00 O2 Sat by Pulse Oximetry (%) 95 12/13/19 10:00 GENERAL: The patient is awake, alert, and fully oriented, on nonrebreather NECK: Trachea midline, full range of motion, supple. LUNGS: scattered rales bilaterally HEART: Regular rate and rhythm, S1, S2 ABDOMEN: Soft, nontender, nondistended, normoactive bowel sounds EXTREMITIES: 2+ pulses, warm, well-perfused, no edema. NEUROLOGICAL: Cranial nerves II through XII grossly intact. Normal speech PSYCH: Normal mood, normal affect. SKIN: Warm, dry, normal turgor Laboratory Results - last 24 hr 12/12/19 12/12/19 12/13/19 17:16 22:14 05:58 WBC RBC Hgb Hct MCV MCH MCHC RDW Plt Count MPV Absolute Neuts (auto) Neutrophils % Neutrophils % (Manual) Band Neutrophils % Lymphocytes % Lymphocytes % (Manual) Monocytes % Monocytes % (Manual) Eosinophils % Eosinophils % (Manual) Basophils % Basophils % (Manual) Myelocytes % (Man) Promyelocytes % (Man) Blast Cells % (Manual) Nucleated RBC % Metamyelocytes Hypochromia Platelet Estimate Polychromasia Poikilocytosis Anisocytosis Microcytosis Macrocytosis Sodium Potassium Chloride Carbon Dioxide Anion Gap BUN Creatinine Est GFR (CKD-EPI)AfAm Est GFR (CKD-EPI)NonAf POC Glucometer 419 465 239 Random Glucose Calcium Ferritin Total Bilirubin AST ALT Alkaline Phosphatase LD Total C-Reactive Protein Total Protein Albumin 12/13/19 12/13/19 12/13/19 07:50 07:50 11:19 WBC 13.2 H RBC 4.46 Hgb 11.7 Hct 36.2 MCV 81.0 MCH 26.2 MCHC 32.3 RDW 14.9 Plt Count 380 MPV 8.1 Absolute Neuts (auto) 10.9 H Neutrophils % 82.8 Neutrophils % (Manual) 78.0 Band Neutrophils % 0.0 Lymphocytes % 10.0 Lymphocytes % (Manual) 13.0 Monocytes % 6.5 Monocytes % (Manual) 8 Eosinophils % 0.4 Eosinophils % (Manual) 0.0 Basophils % 0.3 Basophils % (Manual) 0.0 Myelocytes % (Man) 0 D Promyelocytes % (Man) 0 Blast Cells % (Manual) 0 Nucleated RBC % 0 Metamyelocytes 1 Hypochromia 0 Platelet Estimate Normal Polychromasia 0 Poikilocytosis 0 Anisocytosis 0 Microcytosis 0 Macrocytosis 0 Sodium 139 Potassium 4.0 Chloride 104 Carbon Dioxide 27 Anion Gap 8 BUN 17.3 Creatinine 0.7 Est GFR (CKD-EPI)AfAm 118.74 Est GFR (CKD-EPI)NonAf 102.45 POC Glucometer 298 Random Glucose 199 H Calcium 8.9 Ferritin 237.2 Total Bilirubin 0.3 AST 43 H ALT 102 H Alkaline Phosphatase 159 H LD Total 319 H C-Reactive Protein 7.7 H Total Protein 6.4 Albumin 1.8 L Active Medications Generic Name Dose Route Start Last Admin Trade Name Freq PRN Reason Stop Dose Admin Acetaminophen 650 mg 12/10/19 00:29 12/12/19 22:17 Tylenol - PO 650 mg Q6H PRN Administration Fever Or Pain Albuterol Sulfate 2 puff 12/09/19 10:30 Ventolin Hfa Inhaler - IH Q4H PRN SHORT OF BREATH/WHEEZING Apixaban 5 mg 12/09/19 22:00 12/13/19 09:07 Eliquis - PO 5 mg BID [facility] Administration Ascorbic Acid 250 mg 12/09/19 22:00 12/13/19 09:03 Vitamin C - PO 250 mg BID [facility] Administration Cholecalciferol 1,000 unit 12/10/19 10:00 12/13/19 09:03 Vitamin D3 - PO 1,000 unit DAILY [facility] Administration Gabapentin 900 mg 12/09/19 22:00 12/13/19 09:07 Neurontin - PO 900 mg BID [facility] Administration Azithromycin 500 mg in 250 mls @ 250 mls/hr 12/10/19 10:00 12/13/19 09:02 Zithromax 500mg Ivpb (Pre-Docked) IVPB 250 mls/hr DAILY [facility] Administration Ceftriaxone Sodium 2 gm/ 100 mls @ 200 mls/hr 12/10/19 10:00 12/13/19 09:02 Dextrose IVPB 200 mls/hr DAILY [facility] Administration Protocol Insulin Aspart 1 vial 12/09/19 11:00 12/13/19 11:22 Novolog Vial Sliding Scale - SQ 6 units ACHS [facility] Administration Protocol Insulin Detemir 20 units 12/12/19 22:00 12/12/19 22:18 Levemir Vial SQ 20 units HS [facility] Administration Insulin Detemir 30 units 12/13/19 07:00 12/13/19 07:16 Levemir Vial SQ 30 units AM [facility] Administration Methylprednisolone Sodium Succinate 40 mg 12/13/19 22:00 Solu-Medrol - IVPUSH BID [facility] Pantoprazole Sodium 20 mg 12/10/19 10:00 12/13/19 09:03 Protonix - PO 20 mg DAILY [facility] Administration Zinc Sulfate 220 mg 12/09/19 22:00 12/13/19 09:03 Orazinc - PO 220 mg BID [facility] Administration ASSESSMENT/PLAN: Patient is a 49 year old female with past medical history of DM, HTN, gastroparesis, came in for SOB, admitted for COVID pneumonitis. #SEpsis 2/2 COVID pneumonitis #Acute hypoxic respiratory failure 2/2 COVID pneumonitis, ?possible concomitant bacterial pneumonia -Completed 5 doses of Remdesivir -IV Ceftriaxone and Azithromycin started on 12/09 -Steroids increased to medrol 40mg bid -inflammatory markers trending down -blood cx, urine legionella/pneumonia negative -supplemental oxygen to keep SpO2>90% -Vit C/Zinc/Vit D3 -Pulm consulted REcommendations appreciated. -ID consulted. REcommendations appreciated #Uncontrolled DM -BGM ACHS -Insulin sliding scale implemented, will titrate as needed as patient is on steroid taper -Levemir bid, will titrate dose as needed -hold home metformin -will continue to monitor #HTN -BP stable, not on any home meds -will continue to monitor #B/L LE edema, b/l plantar pain -LE doppler ordered, but could not be done due to patient's covid status -will keep legs elevated -gabapentin bid -keep legs elevated -on eliquis bid #FEN -Not on any standing fluids -Electrolytes wnl, routine bmp monitoring -Diabetic/sodium restricted diet #Prophylaxis -Eliquis 5mg bid #Disposition -full code -tele monitoring Visit type - Emergency Visit Emergency Visit: Yes ED Registration Date: 12/05/19 Care time: The patient presented to the Emergency Department on the above date and was hospitalized for further evaluation of their emergent condition. - New Patient This patient is new to me today: No - Critical Care Critical Care patient: No ATTENDING PHYSICIAN STATEMENT I saw and evaluated the patient. I reviewed the resident's note and discussed the case with the resident. I agree with the resident's findings and plan as documented. SUBJECTIVE: OBJECTIVE: ASSESSMENT AND PLAN:
[2019-12-13] MEDS: ACETAMINOPHEN 325 MG TABLET (FP) PO PRN (17:59)
[2019-12-13] MEDS: INSULIN (LEVEMIR) 100 UNITS/ML UNITS SQ SCH (22:25)
[2019-12-14] MEDS: INSULIN SLIDING SCALE (NOVOLOG) 1 VIAL SQ SCH ×4 (07:07→21:45)
[2019-12-14] MEDS: INSULIN (LEVEMIR) 100 UNITS/ML UNITS SQ SCH (07:07)
[2019-12-14 07:55] LABS: BASO % 0.1 % (0-2.0); HEMATOCRIT 35.3 % (32.4-45.2); HEMOGLOBIN 11.5 GM/dL (10.7-15.3); MCH 26.2 pg (25.7-33.7); MCHC 32.5 g/dl (32.0-36.0); MEAN CELL VOLUME 80.6 fl (80-96); MEAN PLT VOLUME 8.3 fl (7.5-11.1); MONO % 5.4 % (3.8-10.2); NEUT % 89.5 % (42.8-82.8); PLATELET COUNT 327 K/MM3 (134-434); RBC 4.37 M/mm3 (3.60-5.2); RDW 14.6 % (11.6-15.6); WHITE BLOOD COUNT 13.3 K/mm3 (4.0-10.0)
[2019-12-14 08:44] LABS: ALBUMIN 1.7 g/dl (3.4-5.0); BILIRUBIN,TOTAL 0.3 mg/dL (0.2-1); BLOOD UREA NITROGEN 21.4 mg/dL (7-18); CALCIUM 8.7 mg/dL (8.5-10.1); CREATININE 0.6 mg/dL (0.55-1.3); POTASSIUM 4.6 mmol/L (3.5-5.1); TOT PROT 6.2 g/dl (6.4-8.2)
[2019-12-14] MEDS: APIXABAN 5 MG TABLET PO SCH ×2 (09:07→21:44)
[2019-12-14] MEDS: GABAPENTIN 300 MG CAPSULE PO SCH ×2 (09:07→21:43)
[2019-12-14] MEDS: ZINC SULFATE 220 MG CAPSULE (FP) PO SCH ×2 (09:07→21:43)
[2019-12-14] MEDS: CEFTRIAXONE 2 GM in DEXTROSE 5%-WATER 100 ML IVPB SCH (09:07)
[2019-12-14] MEDS: methylPREDNISolone NA SUCC 40 MG/1 ML VIAL IVPUSH SCH ×2 (09:07→21:44)
[2019-12-14] MEDS: ASCORBIC ACID 250 MG TABLET (FP) PO SCH ×2 (09:07→21:44)
[2019-12-14] MEDS: CHOLECALCIFEROL (VIT D3) 1,000 UNIT (25 MCG) TABLET PO SCH (09:07)
[2019-12-14] MEDS: PANTOPRAZOLE 20 MG TABLET PO SCH (09:07)
[2019-12-14] MEDS: AZITHROMYCIN IVPB 500 MG/250 ML BAG IVPB SCH (09:08)
--- NOTE | 2019-12-14 10:08 | PN ---
Progress Note, Physician History of Present Illness: pulmonary alert,less dyspneic,mildly tachypneic on 100%nrm o2 sat 88% - Current Medication List Current Medications: Active Medications Acetaminophen (Tylenol -) 650 mg PO Q6H PRN PRN Reason: Fever Or Pain Last Admin: 12/13/19 17:59 Dose: 650 mg Documented by: Albuterol Sulfate (Ventolin Hfa Inhaler -) 2 puff IH Q4H PRN PRN Reason: SHORT OF BREATH/WHEEZING Apixaban (Eliquis -) 5 mg PO BID [facility] Last Admin: 12/14/19 09:07 Dose: 5 mg Documented by: Ascorbic Acid (Vitamin C -) 250 mg PO BID [facility] Last Admin: 12/14/19 09:07 Dose: 250 mg Documented by: Cholecalciferol (Vitamin D3 -) 1,000 unit PO DAILY [facility] Last Admin: 12/14/19 09:07 Dose: 1,000 unit Documented by: Gabapentin (Neurontin -) 900 mg PO BID [facility] Last Admin: 12/14/19 09:07 Dose: 900 mg Documented by: Azithromycin (Zithromax 500mg Ivpb (Pre-Docked)) 500 mg in 250 mls @ 250 mls/hr IVPB DAILY [facility] Last Admin: 12/14/19 09:08 Dose: 250 mls/hr Documented by: Ceftriaxone Sodium 2 gm/ (Dextrose) 100 mls @ 200 mls/hr IVPB DAILY [facility]; Protocol Last Admin: 12/14/19 09:07 Dose: 200 mls/hr Documented by: Insulin Aspart (Novolog Vial Sliding Scale -) 1 vial SQ ACHS [facility]; Protocol Last Admin: 12/14/19 07:07 Dose: 8 units Documented by: Insulin Aspart (Novolog Vial) 5 units SQ TIDAC [facility] Insulin Detemir (Levemir Vial) 30 units SQ BID@0700,2200 [facility] Last Admin: 12/14/19 07:07 Dose: 30 units Documented by: Methylprednisolone Sodium Succinate (Solu-Medrol -) 40 mg IVPUSH BID [facility] Last Admin: 12/14/19 09:07 Dose: 40 mg Documented by: Pantoprazole Sodium (Protonix -) 20 mg PO DAILY [facility] Last Admin: 12/14/19 09:07 Dose: 20 mg Documented by: Zinc Sulfate (Orazinc -) 220 mg PO BID [facility] Last Admin: 12/14/19 09:07 Dose: 220 mg Documented by: - Objective Vital Signs: Vital Signs Temperature 98.2 F 12/14/19 06:00 Pulse Rate 113 H 12/14/19 06:00 Respiratory Rate 20 12/14/19 06:00 Blood Pressure 155/89 12/14/19 06:00 O2 Sat by Pulse Oximetry (%) 92 L 12/13/19 22:00 Constitutional: Yes: Well Nourished, Calm, Other (mildly tachypneic) Eyes: Yes: WNL HENT: Yes: WNL Neck: Yes: WNL Cardiovascular: Yes: Regular Rate and Rhythm, S1, S2 Respiratory: Yes: Rales (scattered zina crackles) Gastrointestinal: Yes: Normal Bowel Sounds, Soft Extremities: Yes: WNL Edema: No Labs: CBC, BMP 12/14/19 06:45 12/14/19 06:45 INR, PTT INR 0.92 (0.83-1.09) 12/05/19 06:15 - ....Imaging Chest X-ray: Report Reviewed, Image Reviewed (worsening zina infiltrates) Problem List - Problems (1) COVID-19 Code(s): U07.1 - COVID POSITIVE (2) Acute respiratory failure Code(s): J96.00 - ACUTE RESPIRATORY FAILURE, UNSP W HYPOXIA OR HYPERCAPNIA Qualifiers: Respiratory failure complication: hypoxia Qualified Code(s): J96.01 - Acute respiratory failure with hypoxia (3) Hyperglycemia due to diabetes mellitus Code(s): E11.65 - TYPE 2 DIABETES MELLITUS WITH HYPERGLYCEMIA (4) Sepsis Code(s): A41.9 - SEPSIS, UNSPECIFIED ORGANISM Qualifiers: Sepsis type: sepsis due to unspecified organism Sepsis acute organ dysfunction status: with acute organ dysfunction Severe sepsis acute organ dysfunction type: acute respiratory failure Acute respiratory failure type: with hypoxia Severe sepsis shock status: without septic shock Qualified Code(s): A41.9 - Sepsis, unspecified organism; R65.20 - Severe sepsis without septic shock; J96.01 - Acute respiratory failure with hypoxia (5) DKA (diabetic ketoacidoses) Code(s): E13.10 - OTH DIABETES MELLITUS WITH KETOACIDOSIS WITHOUT COMA Assessment/Plan A/P COVID19 Pneumonitis DKA resolved UTI Sepsis Lactic Acidosis HTN DM - completed remdesivir - pt refused convalescent plasma - antibiotics - glucose control - medrol 40 bid - taper Fio2 to keep SpO2 >90% - trend inflammatory markers - pulse oximetry monitoring - symbicort DR GUNDERSON
[2019-12-14] MEDS: INSULIN (NOVOLOG) ASPART 100 UNITS/ML 10ML VIAL SQ SCH ×2 (11:18→17:00)
--- NOTE | 2019-12-14 11:39 | PN ---
Teaching Attending Note Name of Resident: Italia Alcantar ATTENDING PHYSICIAN STATEMENT I saw and evaluated the patient. I reviewed the resident's note and discussed the case with the resident. I agree with the resident's findings and plan as documented. SUBJECTIVE: pt seen and examined at bedside, feeling tired as she couldn't sleep last night due to SOB OBJECTIVE: Last Vital Signs Temp Pulse Resp BP Pulse Ox 98.8 F 96 H 32 H 176/97 H 88 L 12/14/19 10:00 12/14/19 10:00 12/14/19 10:00 12/14/19 10:00 12/14/19 10:00 GENERAL: Awake, alert, and fully oriented, in no acute distress. HEENT: NC/AT, Not P/C/J, neck supple no JVD LUNGS: Breath sounds equal, clear to auscultation bilaterally. No wheezes, and no crackles. No accessory muscle use. HEART: tachy, normal S1 and S2 without murmur, rub or gallop. ABDOMEN: Soft, nontender, not distended, normoactive bowel sounds, no guarding, no rebound, no masses. No hepatomegaly or splenomegaly. EXTREMITIES: 2+ pulses, warm, well-perfused. No cyanosis. No clubbing. No peripheral edema, rt calf tenderness, +ve rawls NEUROLOGICAL: no focal deficit CBCD WBC 13.3 K/mm3 (4.0-10.0) H 12/14/19 06:45 RBC 4.37 M/mm3 (3.60-5.2) 12/14/19 06:45 Hgb 11.5 GM/dL (10.7-15.3) 12/14/19 06:45 Hct 35.3 % (32.4-45.2) 12/14/19 06:45 MCV 80.6 fl (80-96) 12/14/19 06:45 MCHC 32.5 g/dl (32.0-36.0) 12/14/19 06:45 RDW 14.6 % (11.6-15.6) 12/14/19 06:45 Plt Count 327 K/MM3 (134-434) 12/14/19 06:45 MPV 8.3 fl (7.5-11.1) 12/14/19 06:45 CMP Sodium 137 mmol/L (136-145) 12/14/19 06:45 Potassium 4.6 mmol/L (3.5-5.1) 12/14/19 06:45 Chloride 102 mmol/L (98-107) 12/14/19 06:45 Carbon Dioxide 25 mmol/L (21-32) 12/14/19 06:45 Anion Gap 10 MMOL/L (8-16) 12/14/19 06:45 BUN 21.4 mg/dL (7-18) H 12/14/19 06:45 Creatinine 0.6 mg/dL (0.55-1.3) 12/14/19 06:45 Calcium 8.7 mg/dL (8.5-10.1) 12/14/19 06:45 Total Bilirubin 0.3 mg/dL (0.2-1) 12/14/19 06:45 AST 25 U/L (15-37) 12/14/19 06:45 ALT 73 U/L (13-61) H 12/14/19 06:45 Alkaline Phosphatase 152 U/L (45-117) H 12/14/19 06:45 Total Protein 6.2 g/dl (6.4-8.2) L 12/14/19 06:45 Albumin 1.7 g/dl (3.4-5.0) L 12/14/19 06:45 Active Medications Acetaminophen (Tylenol -) 650 mg PO Q6H PRN PRN Reason: Fever Or Pain Last Admin: 12/13/19 17:59 Dose: 650 mg Documented by: Albuterol Sulfate (Ventolin Hfa Inhaler -) 2 puff IH Q4H PRN PRN Reason: SHORT OF BREATH/WHEEZING Apixaban (Eliquis -) 5 mg PO BID [facility] Last Admin: 12/14/19 09:07 Dose: 5 mg Documented by: Ascorbic Acid (Vitamin C -) 250 mg PO BID [facility] Last Admin: 12/14/19 09:07 Dose: 250 mg Documented by: Cholecalciferol (Vitamin D3 -) 1,000 unit PO DAILY [facility] Last Admin: 12/14/19 09:07 Dose: 1,000 unit Documented by: Gabapentin (Neurontin -) 900 mg PO BID [facility] Last Admin: 12/14/19 09:07 Dose: 900 mg Documented by: Azithromycin (Zithromax 500mg Ivpb (Pre-Docked)) 500 mg in 250 mls @ 250 mls/hr IVPB DAILY [facility] Last Admin: 12/14/19 09:08 Dose: 250 mls/hr Documented by: Ceftriaxone Sodium 2 gm/ (Dextrose) 100 mls @ 200 mls/hr IVPB DAILY [facility]; Protocol Last Admin: 12/14/19 09:07 Dose: 200 mls/hr Documented by: Insulin Aspart (Novolog Vial Sliding Scale -) 1 vial SQ ACHS [facility]; Protocol Last Admin: 12/14/19 11:18 Dose: 10 units Documented by: Insulin Aspart (Novolog Vial) 5 units SQ TIDAC [facility] Last Admin: 12/14/19 11:18 Dose: 5 units Documented by: Insulin Detemir (Levemir Vial) 30 units SQ BID@0700,2200 [facility] Last Admin: 12/14/19 07:07 Dose: 30 units Documented by: Methylprednisolone Sodium Succinate (Solu-Medrol -) 40 mg IVPUSH BID [facility] Last Admin: 12/14/19 09:07 Dose: 40 mg Documented by: Pantoprazole Sodium (Protonix -) 20 mg PO DAILY [facility] Last Admin: 12/14/19 09:07 Dose: 20 mg Documented by: Zinc Sulfate (Orazinc -) 220 mg PO BID [facility] Last Admin: 12/14/19 09:07 Dose: 220 mg Documented by: ASSESSMENT AND PLAN: 49 YO Lady with Mhx of DM, HTN, Obesity, admitted for COVID19 pneumonitis # COVID19 Pneumonitis with sepsis - completed remdesivir - C/w IV antibiotics, Anticoagulation, O2 - Steroids per pulmonary - trend inflammatory markers - pulmonary and ID consult appreciated - remains in bed, encourage to ambulate as tolerated - tender calf, last US Doppler was negative for DVT - will repeat D-Dimer and US Doppler DM - increasing insulin requirement, likely due to stress and steroids. abnormal LFT UTI HTN obesity DVT prophylaxis (on Eliquis)
[2019-12-14] MEDS: BUDESONIDE/FORMETEROL FUMARATE 160/4.5 mcg INHALER IH SCH ×2 (13:20→21:44)
--- NOTE | 2019-12-14 13:22 | PN ---
Physical Exam: SUBJECTIVE: Patient seen and examined. Still desats off NRB. Still has right calf pain. Afebrile. Blood glucose noted to be elevated. OBJECTIVE: Vital Signs Temperature 98.8 F 12/14/19 10:00 Pulse Rate 96 H 12/14/19 10:00 Respiratory Rate 32 H 12/14/19 10:00 Blood Pressure 176/97 H 12/14/19 10:00 O2 Sat by Pulse Oximetry (%) 88 L 12/14/19 10:00 GENERAL: The patient is awake, alert, and fully oriented, on nonrebreather NECK: Trachea midline, full range of motion, supple. LUNGS: scattered rales bilaterally HEART: Regular rate and rhythm, S1, S2 ABDOMEN: Soft, nontender, nondistended, normoactive bowel sounds EXTREMITIES: 2+ pulses, warm, well-perfused, no edema. NEUROLOGICAL: Cranial nerves II through XII grossly intact. Normal speech PSYCH: Normal mood, normal affect. SKIN: Warm, dry, normal turgor Laboratory Results - last 24 hr 12/13/19 12/13/19 12/14/19 16:36 22:13 06:45 WBC RBC Hgb Hct MCV MCH MCHC RDW Plt Count MPV Absolute Neuts (auto) Neutrophils % Lymphocytes % Monocytes % Eosinophils % Basophils % Nucleated RBC % Sodium 137 Potassium 4.6 Chloride 102 Carbon Dioxide 25 Anion Gap 10 BUN 21.4 H Creatinine 0.6 Est GFR (CKD-EPI)AfAm 124.92 Est GFR (CKD-EPI)NonAf 107.78 POC Glucometer 383 419 Random Glucose 311 H Calcium 8.7 Ferritin 210.6 Total Bilirubin 0.3 AST 25 ALT 73 H Alkaline Phosphatase 152 H LD Total 308 H C-Reactive Protein 9.8 H Total Protein 6.2 L Albumin 1.7 L 12/14/19 12/14/19 12/14/19 06:45 07:06 11:15 WBC 13.3 H RBC 4.37 Hgb 11.5 Hct 35.3 MCV 80.6 MCH 26.2 MCHC 32.5 RDW 14.6 Plt Count 327 MPV 8.3 Absolute Neuts (auto) 11.9 H Neutrophils % 89.5 H Lymphocytes % 5.0 L D Monocytes % 5.4 Eosinophils % 0.0 D Basophils % 0.1 Nucleated RBC % 0 Sodium Potassium Chloride Carbon Dioxide Anion Gap BUN Creatinine Est GFR (CKD-EPI)AfAm Est GFR (CKD-EPI)NonAf POC Glucometer 326 351 Random Glucose Calcium Ferritin Total Bilirubin AST ALT Alkaline Phosphatase LD Total C-Reactive Protein Total Protein Albumin Active Medications Generic Name Dose Route Start Last Admin Trade Name Freq PRN Reason Stop Dose Admin Acetaminophen 650 mg 12/10/19 00:29 12/13/19 17:59 Tylenol - PO 650 mg Q6H PRN Administration Fever Or Pain Albuterol Sulfate 2 puff 12/09/19 10:30 Ventolin Hfa Inhaler - IH Q4H PRN SHORT OF BREATH/WHEEZING Apixaban 5 mg 12/09/19 22:00 12/14/19 09:07 Eliquis - PO 5 mg BID ROCÍO Administration Ascorbic Acid 250 mg 12/09/19 22:00 12/14/19 09:07 Vitamin C - PO 250 mg BID ROCÍO Administration Budesonide/Formoterol Fumarate 2 puff 12/14/19 12:15 12/14/19 13:20 Symbicort 160/4.5mcg - IH 2 puff BID ROCÍO Administration Cholecalciferol 1,000 unit 12/10/19 10:00 12/14/19 09:07 Vitamin D3 - PO 1,000 unit DAILY ROCÍO Administration Gabapentin 900 mg 12/09/19 22:00 12/14/19 09:07 Neurontin - PO 900 mg BID ROCÍO Administration Azithromycin 500 mg in 250 mls @ 250 mls/hr 12/10/19 10:00 12/14/19 09:08 Zithromax 500mg Ivpb (Pre-Docked) IVPB 250 mls/hr DAILY ROCÍO Administration Ceftriaxone Sodium 2 gm/ 100 mls @ 200 mls/hr 12/10/19 10:00 12/14/19 09:07 Dextrose IVPB 200 mls/hr DAILY ROCÍO Administration Protocol Insulin Aspart 1 vial 12/09/19 11:00 12/14/19 11:18 Novolog Vial Sliding Scale - SQ 10 units ACHS ROCÍO Administration Protocol Insulin Aspart 5 units 12/14/19 11:00 12/14/19 11:18 Novolog Vial SQ 5 units TIDAC ROCÍO Administration Insulin Detemir 40 units 12/14/19 22:00 Levemir Vial SQ BID@0700,2200 [facility] Methylprednisolone Sodium Succinate 40 mg 12/13/19 22:00 08/06/20 09:07 Solu-Medrol - IVPUSH 40 mg BID ROCÍO Administration Pantoprazole Sodium 20 mg 12/10/19 10:00 12/14/19 09:07 Protonix - PO 20 mg DAILY ROCÍO Administration Zinc Sulfate 220 mg 12/09/19 22:00 12/14/19 09:07 Orazinc - PO 220 mg BID ROCÍO Administration ASSESSMENT/PLAN: Patient is a 49 year old female with past medical history of DM, HTN, gastroparesis, came in for SOB, admitted for COVID pneumonitis. #Sepsis 2/2 COVID pneumonitis #Acute hypoxic respiratory failure 2/2 COVID pneumonitis, ?possible concomitant bacterial pneumonia -Completed 5 doses of Remdesivir -IV Ceftriaxone and Azithromycin course completed -IV medrol 40mg bid -inflammatory markers trend -blood cx, urine legionella/pneumonia negative -supplemental oxygen to keep SpO2>90% -Vit C/Zinc/Vit D3 -Pulm consulted REcommendations appreciated. -ID consulted. REcommendations appreciated #Uncontrolled DM -BGM ACHS -Insulin sliding scale implemented -Levemir bid and novolog standing TIDAC, will titrate as needed as patient is on steroids -hold home metformin -will continue to monitor #HTN -BP stable, not on any home meds -will continue to monitor #B/L LE edema, b/l plantar pain -LE doppler negative 12/10 -will repeat LE US as patient still reports calf pain -gabapentin bid -keep legs elevated -on eliquis bid #FEN -Not on any standing fluids -Electrolytes wnl, routine bmp monitoring -Diabetic/sodium restricted diet #Prophylaxis -Eliquis 5mg bid #Disposition -full code -tele monitoring Visit type - Emergency Visit Emergency Visit: Yes ED Registration Date: 12/05/19 Care time: The patient presented to the Emergency Department on the above date and was hospitalized for further evaluation of their emergent condition. - New Patient This patient is new to me today: No - Critical Care Critical Care patient: No ATTENDING PHYSICIAN STATEMENT I saw and evaluated the patient. I reviewed the resident's note and discussed the case with the resident. I agree with the resident's findings and plan as documented. SUBJECTIVE: OBJECTIVE: ASSESSMENT AND PLAN:
[2019-12-14] MEDS ORDERED: INSULIN (LEVEMIR) 100 UNITS/ML UNITS SQ SCH (22:00)
[2019-12-14] MEDS ORDERED: LORazepam 2 MG/ML SDV VIAL IVPUSH ONE (23:49)
--- NOTE | 2019-12-14 23:59 | PN ---
Progress Note (short form) - Note Progress Note: Resident paged by RN for o2 desaturation to the low 80s on NRB. Pt examined and found to be tachypnic to 40 bpm, using accessory muscles of respiration. High flow therapy was initiated but pt further desaturated to the high 70s 02 sat and NRB resumed. Plethysmographic interpretation confirms o2 saturation reading accurate. Pt notably anxious. ABG, CXR, and Ativan ordered. Pt educated on importance of prone/lateral decubitus positioning and expansion of thoracic cavi ty. Possibility of intubation discussed with pt if she is not able to sustain o2 greater than 88%. Discussed case with ICU team, who is familiar with patient given stay in ICU prior to present telemetry monitoring.
--- NOTE | 2019-12-15 00:15 | PN ---
Physical Exam: SUBJECTIVE: Patient seen and examined at bedside- notified by floor team that patient was desaturating in the high 70's while on 100% NRB; patient attempted to use high-flow for a few minutes however she could not tolerate it she states she couldn't get enough air in. patient was instructed to lay on her side with minimal improvement in 02 saturations- patient 's o2 saturations were ranging in the high 70's with respirations in the 30's. updated patients on the current status of his and he endorsed that we should do everything that we need to do. OBJECTIVE: Vital Signs Period Temp Pulse Resp BP Sys/Aguilar Pulse Ox Last 24 Hr 98.2 F-99.0 F 96-118 20-36 152-176/83-97 83-88 GENERAL: The patient is awake, alert, and fully oriented, on NRB and tachypneic EYES: PEERLA: EOMI no scleral icterus . NECK: no JVD; no lymphadenopathy LUNGS: scattered rales BL HEART:tachycardic, S1, S2 without murmur, rub or gallop. ABDOMEN: Soft, NT ND +BS in all 4 quadrants . EXTREMITIES: 2+ pulses, warm, well-perfused, no edema + right calf pain/tenderness. PSYCH: Normal mood, normal affect. SKIN: Warm, dry, normal turgor, no rashes or lesions noted Laboratory Results - last 24 hr 12/14/19 12/14/19 12/14/19 06:45 06:45 07:06 WBC 13.3 H RBC 4.37 Hgb 11.5 Hct 35.3 MCV 80.6 MCH 26.2 MCHC 32.5 RDW 14.6 Plt Count 327 MPV 8.3 Absolute Neuts (auto) 11.9 H Neutrophils % 89.5 H Lymphocytes % 5.0 L D Monocytes % 5.4 Eosinophils % 0.0 D Basophils % 0.1 Nucleated RBC % 0 Sodium 137 Potassium 4.6 Chloride 102 Carbon Dioxide 25 Anion Gap 10 BUN 21.4 H Creatinine 0.6 Est GFR (CKD-EPI)AfAm 124.92 Est GFR (CKD-EPI)NonAf 107.78 POC Glucometer 326 Random Glucose 311 H Calcium 8.7 Ferritin 210.6 Total Bilirubin 0.3 AST 25 ALT 73 H Alkaline Phosphatase 152 H LD Total 308 H C-Reactive Protein 9.8 H Total Protein 6.2 L Albumin 1.7 L Blood Type Antibody Screen 12/14/19 12/14/19 12/14/19 11:15 16:45 16:57 WBC RBC Hgb Hct MCV MCH MCHC RDW Plt Count MPV Absolute Neuts (auto) Neutrophils % Lymphocytes % Monocytes % Eosinophils % Basophils % Nucleated RBC % Sodium Potassium Chloride Carbon Dioxide Anion Gap BUN Creatinine Est GFR (CKD-EPI)AfAm Est GFR (CKD-EPI)NonAf POC Glucometer 351 410 Random Glucose Calcium Ferritin 241.7 Total Bilirubin AST ALT Alkaline Phosphatase LD Total 339 H C-Reactive Protein Total Protein Albumin Blood Type Antibody Screen 12/14/19 12/14/19 18:35 21:42 WBC RBC Hgb Hct MCV MCH MCHC RDW Plt Count MPV Absolute Neuts (auto) Neutrophils % Lymphocytes % Monocytes % Eosinophils % Basophils % Nucleated RBC % Sodium Potassium Chloride Carbon Dioxide Anion Gap BUN Creatinine Est GFR (CKD-EPI)AfAm Est GFR (CKD-EPI)NonAf POC Glucometer 241 Random Glucose Calcium Ferritin Total Bilirubin AST ALT Alkaline Phosphatase LD Total C-Reactive Protein Total Protein Albumin Blood Type O POSITIVE Antibody Screen Negative Active Medications Generic Name Dose Route Start Last Admin Trade Name Freq PRN Reason Stop Dose Admin Acetaminophen 650 mg 12/10/19 00:29 12/13/19 17:59 Tylenol - PO 650 mg Q6H PRN Administration Fever Or Pain Albuterol Sulfate 2 puff 12/09/19 10:30 Ventolin Hfa Inhaler - IH Q4H PRN SHORT OF BREATH/WHEEZING Apixaban 5 mg 12/09/19 22:00 12/14/19 21:44 Eliquis - PO 5 mg BID ROCÍO Administration Ascorbic Acid 250 mg 12/09/19 22:00 12/14/19 21:44 Vitamin C - PO 250 mg BID ROCÍO Administration Budesonide/Formoterol Fumarate 2 puff 12/14/19 12:15 12/14/19 21:44 Symbicort 160/4.5mcg - IH 2 puff BID ROCÍO Administration Cholecalciferol 1,000 unit 12/10/19 10:00 12/14/19 09:07 Vitamin D3 - PO 1,000 unit DAILY ROCÍO Administration Gabapentin 900 mg 12/09/19 22:00 12/14/19 21:43 Neurontin - PO 900 mg BID ROCÍO Administration Insulin Aspart 1 vial 12/09/19 11:00 12/14/19 21:45 Novolog Vial Sliding Scale - SQ 4 units ACHS ROCÍO Administration Protocol Insulin Aspart 5 units 12/14/19 11:00 12/14/19 17:00 Novolog Vial SQ 5 units TIDAC ROCÍO Administration Insulin Detemir 40 units 12/14/19 22:00 12/14/19 21:44 Levemir Vial SQ 40 units BID@0700,2200 ROC[facility]O Administration Methylprednisolone Sodium Succinate 40 mg 12/13/19 22:00 12/14/19 21:44 Solu-Medrol - IVPUSH 40 mg BID ROCÍO Administration Pantoprazole Sodium 20 mg 12/10/19 10:00 12/14/19 09:07 Protonix - PO 20 mg DAILY ROCÍO Administration Zinc Sulfate 220 mg 12/09/19 22:00 12/14/19 21:43 Orazinc - PO 220 mg BID ROCÍO Administration ASSESSMENT/PLAN: Patient is a 49 year old female with past medical history of DM, HTN, gastroparesis, came in for SOB, admitted for COVID pneumonitis. #Neuro Aox3 -stable; no issues #Cardio HTN history -not on home meds -monitor hemodynamics #Endo DM -ISS -Levemir 40sq BID and novolog standing TIDAC, -BGMS ACHS #ID completed abx course of ceftriaxone/azithromycin #Pulmonary COVID 19 positive patient currently saturating high 70's on NRB and refusing high flow -f/u ABG and CXR -completed 5 days of remdesivir -agreed today to convalescent plasma; to receive tomorrow -completed abx course -medrol 40 BID -zine/vit c/ vit D -on eliquis for AC -symbicort -albuterol PRN -explained to patient that if she refuses hi-flow and does not improve o2 saturations may need intubation -maintain o2 sat >90%; -monitor inflammatory markers #Renal stable; no issues -monitor volume status and electrolytes f/e/n not on fluids monitor electrolytes sodium/diabetic diet dvt ppx: eliquis Problem List - Problems (1) Acute respiratory failure Code(s): J96.00 - ACUTE RESPIRATORY FAILURE, UNSP W HYPOXIA OR HYPERCAPNIA Qualifiers: Respiratory failure complication: hypoxia Qualified Code(s): J96.01 - Acute respiratory failure with hypoxia (2) COVID-19 Code(s): U07.1 - COVID POSITIVE Visit type - Emergency Visit Emergency Visit: Yes ED Registration Date: 12/05/19 Care time: The patient presented to the Emergency Department on the above date and was hospitalized for further evaluation of their emergent condition. - New Patient This patient is new to me today: No - Critical Care Critical Care patient: Yes Total Critical Care Time (in minutes): 35 Critical Care Statement: The care of this patient involved high complexity deci deb making to prevent further life threatening deterioration of the patient's condition and/or to evaluate & treat vital organ system(s) failure or risk of failure. ATTENDING PHYSICIAN STATEMENT I saw and evaluated the patient. I reviewed the resident's note and discussed the case with the resident. I agree with the resident's findings and plan as documented. SUBJECTIVE: OBJECTIVE: ASSESSMENT AND PLAN:
[2019-12-15 00:22] LABS: ARTERIAL BLD GAS O2 SATURATION 82.1 mmHg (95-98); ARTERIAL BLOOD GAS BASE EXCESS 2.5 mmol/L (-2-2); ARTERIAL BLOOD GAS PO2 42.2 mmHg (80-100); ARTERIAL BLOOD GAS pH 7.486 (7.350-7.450)
[2019-12-15 00:24] LABS: ALLENS TEST POSITIVE
[2019-12-15 02:16] LABS: BASO % 1.4 % (0-2.0); HEMATOCRIT 34.4 % (32.4-45.2); HEMOGLOBIN 11.2 GM/dL (10.7-15.3); MCH 26.4 pg (25.7-33.7); MCHC 32.5 g/dl (32.0-36.0); MEAN CELL VOLUME 81.2 fl (80-96); MEAN PLT VOLUME 8.3 fl (7.5-11.1); MONO % 4.4 % (3.8-10.2); NEUT % 91.2 % (42.8-82.8); PLATELET COUNT 334 K/MM3 (134-434); RBC 4.24 M/mm3 (3.60-5.2); RDW 14.9 % (11.6-15.6); WHITE BLOOD COUNT 19.8 K/mm3 (4.0-10.0)
[2019-12-15] MEDS ORDERED: IPRATROPIUM BR 0.02% 0.5 MG/2.5 ML VIAL.NEB. NEB PRN (02:18)
[2019-12-15 02:32] LABS: ALBUMIN 1.6 g/dl (3.4-5.0); BILIRUBIN,TOTAL 0.2 mg/dL (0.2-1); BLOOD UREA NITROGEN 28.5 mg/dL (7-18); CALCIUM 8.7 mg/dL (8.5-10.1); CREATININE 0.8 mg/dL (0.55-1.3); MAGNESIUM 2.3 mg/dL (1.8-2.4); PHOSPHOROUS 3.2 mg/dL (2.5-4.9); POTASSIUM 5.2 mmol/L (3.5-5.1); TOT PROT 6.5 g/dl (6.4-8.2)
[2019-12-15] MEDS ORDERED: RAPID SEQUENCE INTUBATION KIT NR ONE (03:09)
[2019-12-15 03:23] LABS: PLATELET ESTIMATE ADEQUATE
[2019-12-15] MEDS ORDERED: SODIUM CHLORIDE 1,000 ML IV SCH (03:30)
[2019-12-15] MEDS: SODIUM CHLORIDE 1,000 ML IV SCH ×2 (03:30→12:07)
[2019-12-15] MEDS: PROPOFOL 1,000,000 MCG/100 ML VIAL IVPB SCH ×4 (03:30→17:23)
[2019-12-15] MEDS ORDERED: PROPOFOL 1,000,000 MCG/100 ML VIAL ONE (03:33)
[2019-12-15] MEDS: MIDAZOLAM 100 MG in SODIUM CHLORIDE 100 ML IVPB SCH ×2 (04:00→12:10)
[2019-12-15] MEDS ORDERED: MIDAZOLAM 100 MG/100 ML MG IVPB ONE ×3 (04:03→20:23)
--- NOTE | 2019-12-15 04:38 | PROC ---
Intubation - Intubation Reason for Intubation: Respiratory Failure Time of Intubation: 03:15 Intubation Method: orotracheal Blade used: Glidescope Tube Size (cm): 7.5 Tube position @ lip (cm): 22 Tube position confirmed by: Direct visualization, CO2 detector, Chest x-ray, Breath sounds Breath Sounds after Intubation: equal Post Intubation Xray: Yes Remarks: Dr. Heath supervising attending No complications
[2019-12-15 04:44] LABS: ARTERIAL BLD GAS O2 SATURATION 93.4 mmHg (95-98); ARTERIAL BLOOD GAS BASE EXCESS 1.6 mmol/L (-2-2); ARTERIAL BLOOD GAS PO2 75.2 mmHg (80-100); ARTERIAL BLOOD GAS pH 7.302 (7.350-7.450)
[2019-12-15] MEDS ORDERED: ACETAMINOPHEN 325 MG TABLET (FP) PO PRN (04:44)
[2019-12-15] MEDS ORDERED: ALBUTEROL SO4 HFA INHALER IH PRN (04:44)
[2019-12-15 04:45] LABS: ALLENS TEST POSITIVE; VENT MODE A/C; VENT RATE 16
[2019-12-15] MEDS ORDERED: METOPROLOL TARTRATE 5 MG/5 ML VIAL IVPUSH ONE (04:55)
[2019-12-15] MEDS: ACETAMINOPHEN 1000 MG/100 ML VIAL (NON FORMULARY) IVPB PRN (04:59)
[2019-12-15] MEDS: MUPIROCIN 2% TOPICAL OINTMENT FOR DECOLONIZATION NS SCH ×3 (06:12→21:05)
[2019-12-15] MEDS ORDERED: VASOPRESSIN 20 UNITS/ML VIAL IV ONE (06:38)
[2019-12-15] MEDS ORDERED: VASOPRESSIN 40 UNITS in SODIUM CHLORIDE 98 ML IVPB SCH (06:45)
[2019-12-15] MEDS ORDERED: INSULIN (NOVOLOG) ASPART 100 UNITS/ML 10ML VIAL SQ SCH (07:00)
[2019-12-15] MEDS: INSULIN (LEVEMIR) 100 UNITS/ML UNITS SQ SCH ×2 (07:00→21:55)
[2019-12-15] MEDS: INSULIN SLIDING SCALE (NOVOLOG) 1 VIAL SQ SCH ×4 (07:00→21:55)
[2019-12-15] MEDS: VECURONIUM BROMIDE 100 MG/100 ML BAG IVPB SCH ×2 (08:15→12:11)
[2019-12-15 09:49] LABS: ARTERIAL BLD GAS O2 SATURATION 85.1 mmHg (95-98); ARTERIAL BLOOD GAS BASE EXCESS -2.2 mmol/L (-2-2); ARTERIAL BLOOD GAS PO2 58.9 mmHg (80-100); ARTERIAL BLOOD GAS pH 7.238 (7.350-7.450)
[2019-12-15 09:51] LABS: VENT MODE AC
[2019-12-15 09:52] LABS: VENT RATE 18
[2019-12-15] MEDS ORDERED: ZINC SULFATE 220 MG CAPSULE (FP) PO SCH (10:00)
[2019-12-15] MEDS ORDERED: PANTOPRAZOLE 20 MG TABLET PO SCH (10:00)
[2019-12-15] MEDS ORDERED: APIXABAN 5 MG TABLET PO SCH (10:00)
[2019-12-15] MEDS ORDERED: GABAPENTIN 300 MG CAPSULE PO SCH (10:00)
[2019-12-15] MEDS ORDERED: CHOLECALCIFEROL (VIT D3) 1,000 UNIT (25 MCG) TABLET PO SCH (10:00)
[2019-12-15] MEDS ORDERED: ASCORBIC ACID 250 MG TABLET (FP) PO SCH (10:00)
[2019-12-15] MEDS: ENOXAPARIN NA (PORCINE) 80 MG/0.8 ML DISP.SYRIN SQ SCH ×2 (10:43→21:02)
[2019-12-15] MEDS: methylPREDNISolone NA SUCC 40 MG/1 ML VIAL IVPUSH SCH ×2 (10:43→21:02)
--- NOTE | 2019-12-15 12:00 | PN ---
Progress Note, Physician History of Present Illness: TRANSFERRED TO ICU S/P RESP FAILURE INTUBATED HYPOTENSIVE ON PRESSORS LOW GRADE TEMP ELEVATED WBC TO RECEIVE CONVALESCENT PLASMA - Current Medication List Current Medications: Active Medications Acetaminophen (Ofirmev Injection -) 1,000 mg IVPB Q6H PRN PRN Reason: FEVER Stop: 12/16/19 02:38 Last Admin: 12/15/19 04:59 Dose: 1,000 mg Documented by: Acetaminophen (Tylenol -) 650 mg PO Q6H PRN PRN Reason: Fever Or Pain Albuterol Sulfate (Ventolin Hfa Inhaler -) 2 puff IH Q4H PRN PRN Reason: SHORT OF BREATH/WHEEZING Artificial Tears (Artificial Tears) 1 drop OU TID PRN PRN Reason: Dry eyes Ascorbic Acid (Vitamin C -) 250 mg PO BID [facility] Last Admin: 12/15/19 10:46 Dose: Not Given Documented by: Budesonide/Formoterol Fumarate (Symbicort 160/4.5mcg -) 2 puff IH BID [facility] Chlorhexidine Gluconate (Hibiclens For Decolonization -) 1 applic TP [facility] Cholecalciferol (Vitamin D3 -) 1,000 unit PO DAILY [facility] Last Admin: 12/15/19 10:48 Dose: Not Given Documented by: Enoxaparin Sodium (Lovenox -) 80 mg SQ BID [facility] Last Admin: 12/15/19 10:43 Dose: 80 mg Documented by: Gabapentin (Neurontin -) 900 mg PO BID [facility] Last Admin: 12/15/19 10:47 Dose: Not Given Documented by: Sodium Chloride (Normal Saline -) 1,000 mls @ 100 mls/hr IV ASDIR [facility] Last Admin: 12/15/19 03:30 Dose: 100 mls/hr Documented by: Propofol (Diprivan -) 1,000,000 mcg in 100 mls @ 2.395 mls/hr IVPB TITR [facility]; Protocol Last Titration: 12/15/19 06:00 Dose: 60 mcg/kg/min, 28.74 mls/hr Documented by: Midazolam HCl 100 mg/ Sodium (Chloride) 100 mls @ 1 mls/hr IVPB TITR [facility]; Protocol Last Titration: 12/15/19 08:25 Dose: 6 mg/hr, 6 mls/hr Documented by: Vecuronium [place] (Vecuronium [place]) 100 mg in 100 mls @ 4.79 mls/hr IVPB TITR [facility] Last Admin: 12/15/19 08:15 Dose: 1 mcg/kg/min, 4.79 mls/hr Documented by: Vasopressin 40 units/ Sodium (Chloride) 100 mls @ 5 mls/hr IVPB ASDIR [facility]; Protocol Last Titration: 12/15/19 08:35 Dose: 0 units/hr, 0 mls/hr Documented by: Vancomycin HCl 1,000 mg/ (Dextrose) 250 mls @ 166.667 mls/hr IVPB Q12H [facility]; Protocol Cefepime HCl (Maxipime 2gm Ivpb (Premix)) 2 gm in 50 mls @ 100 mls/hr IVPB Q8H- IV [facility]; Protocol Insulin Aspart (Novolog Vial Sliding Scale -) 1 vial SQ ACHS [facility]; Protocol Last Admin: 12/15/19 11:02 Dose: 6 units Documented by: Insulin Detemir (Levemir Vial) 40 units SQ BID@0700,2200 [facility] Last Admin: 12/15/19 07:00 Dose: 40 units Documented by: Ipratropium [place] (Atrovent 0.02% Nebulizer -) 1 amp NEB Q6H PRN PRN Reason: DYSPEPSIA Stop: 12/22/19 02:18 Methylprednisolone Sodium Succinate (Solu-Medrol -) 40 mg IVPUSH BID [facility] Last Admin: 12/15/19 10:43 Dose: 40 mg Documented by: Mupirocin (Bactroban Ointment (For Decolonization) -) 1 applic NS BID [facility] Stop: 12/20/19 00:14 Last Admin: 12/15/19 06:12 Dose: Not Given Documented by: Pantoprazole Sodium (Protonix -) 20 mg PO DAILY [facility] Last Admin: 12/15/19 10:47 Dose: Not Given Documented by: Zinc Sulfate (Orazinc -) 220 mg PO BID [facility] Last Admin: 12/15/19 10:47 Dose: Not Given Documented by: - Objective Vital Signs: Vital Signs Temperature 97.0 F L 12/15/19 10:00 Pulse Rate 117 H 12/15/19 10:00 Respiratory Rate 20 12/15/19 11:21 Blood Pressure 97/57 L 12/15/19 10:00 O2 Sat by Pulse Oximetry (%) 91 L 12/15/19 11:21 Constitutional: Yes: No Distress Cardiovascular: Yes: Tachycardia, S1, S2 Respiratory: Yes: Mechanically Ventilated Gastrointestinal: Yes: Normal Bowel Sounds, Soft. No: Tenderness Edema: No Labs: INR, PTT INR 0.92 (0.83-1.09) 12/05/19 06:15 Assessment/Plan COVID-19 PNEUMONITIS S/P RESP FAILURE R/O SEPTIC SHOCK OBTAIN BLOOD C/S SUCTIONED SPUTUM C/S EMPIRIC VANCOMYCIN / CEFEPIME PT HAS TOLERATED CEPHALOSPORINS IN THE PAST CONVALESCENT PLASMA VENTILATORY/ HEMODYNAMIC SUPPORT DISCUSSED WITH PULMONARY
[2019-12-15 12:01] LABS: BASO % 0.1 % (0-2.0); HEMATOCRIT 32.7 % (32.4-45.2); HEMOGLOBIN 10.4 GM/dL (10.7-15.3); LYMPH % 3.3 % (8-40); MCH 26.4 pg (25.7-33.7); MCHC 31.7 g/dl (32.0-36.0); MEAN CELL VOLUME 83.3 fl (80-96); MONO % 7.5 % (3.8-10.2); NEUT % 89.1 % (42.8-82.8); PLATELET COUNT 295 K/MM3 (134-434); RBC 3.93 M/mm3 (3.60-5.2); WHITE BLOOD COUNT 23.4 K/mm3 (4.0-10.0)
[2019-12-15] MEDS: BUDESONIDE/FORMETEROL FUMARATE 160/4.5 mcg INHALER IH SCH ×2 (12:06→21:02)
[2019-12-15 12:35] LABS: ALBUMIN 1.6 g/dl (3.4-5.0); BILIRUBIN,TOTAL 0.2 mg/dL (0.2-1); BLOOD UREA NITROGEN 31.5 mg/dL (7-18); CALCIUM 8.3 mg/dL (8.5-10.1); CREATININE 1.2 mg/dL (0.55-1.3); MAGNESIUM 2.4 mg/dL (1.8-2.4); N-TERMINAL BNP 624.4 pg/ml (5-125); PHOSPHOROUS 7.6 mg/dL (2.5-4.9); POTASSIUM 4.9 mmol/L (3.5-5.1); TOT PROT 5.8 g/dl (6.4-8.2)
[2019-12-15 12:48] LABS: ANISOCYTOSIS 0; MACROCYTOSIS 0; PLATELET ESTIMATE NORMAL
--- NOTE | 2019-12-15 13:06 | PN ---
Teaching Attending Note Name of Resident: Micha Katz ATTENDING PHYSICIAN STATEMENT I saw and evaluated the patient. I reviewed the resident's note and discussed the case with the resident. I agree with the resident's findings and plan as documented. SUBJECTIVE: Patient seen and examined in the ICU. Events from overnight noted. Clinical decompensation requiring intubation. ARDS : PPlat initially 32; settings were adjusted and now 26. Vasopressin for hemodynamic support. Intake & Output 12/12/19 12/13/19 12/14/19 12/15/19 23:59 23:59 23:59 23:59 Intake Total 1120 1700 890 260 Output Total 1250 Balance 1120 1700 890 -990 Last Vital Signs Temp Pulse Resp BP Pulse Ox 97.0 F L 117 H 20 97/57 L 91 L 12/15/19 10:00 12/15/19 10:00 12/15/19 11:21 12/15/19 10:00 12/15/19 11:21 Active Medications Acetaminophen (Ofirmev Injection -) 1,000 mg IVPB Q6H PRN PRN Reason: FEVER Stop: 12/16/19 02:38 Last Admin: 12/15/19 04:59 Dose: 1,000 mg Documented by: Acetaminophen (Tylenol -) 650 mg PO Q6H PRN PRN Reason: Fever Or Pain Albuterol Sulfate (Ventolin Hfa Inhaler -) 2 puff IH Q4H PRN PRN Reason: SHORT OF BREATH/WHEEZING Artificial Tears (Artificial Tears) 1 drop OU TID PRN PRN Reason: Dry eyes Ascorbic Acid (Vitamin C Oral Solution -) 250 mg NGT BID [facility] Budesonide/Formoterol Fumarate (Symbicort 160/4.5mcg -) 2 puff IH BID [facility] Last Admin: 12/15/19 12:06 Dose: Not Given Documented by: Chlorhexidine Gluconate (Hibiclens For Decolonization -) 1 applic TP HS [facility] Cholecalciferol (Vitamin D3 Oral Solution -) 1,000 unit GT DAILY [facility] Enoxaparin Sodium (Lovenox -) 80 mg SQ BID [facility] Last Admin: 12/15/19 10:43 Dose: 80 mg Documented by: Gabapentin (Neurontin -) 900 mg PO BID [facility] Last Admin: 12/15/19 10:47 Dose: Not Given Documented by: Sodium Chloride (Normal Saline -) 1,000 mls @ 100 mls/hr IV ASDIR [facility] Last Admin: 12/15/19 12:07 Dose: 100 mls/hr Documented by: Propofol (Diprivan -) 1,000,000 mcg in 100 mls @ 2.395 mls/hr IVPB TITR [facility]; Protocol Last Admin: 12/15/19 12:09 Dose: 50 mcg/kg/min, 23.95 mls/hr Documented by: Midazolam HCl 100 mg/ Sodium (Chloride) 100 mls @ 1 mls/hr IVPB TITR [facility]; Protocol Last Admin: 12/15/19 12:10 Dose: 6 mg/hr, 6 mls/hr Documented by: Vecuronium [place] (Vecuronium [place]) 100 mg in 100 mls @ 4.79 mls/hr IVPB TITR [facility] Last Admin: 12/15/19 12:11 Dose: 1 mcg/kg/min, 4.79 mls/hr Documented by: Vancomycin HCl (Vancomycin (Pre-Docked)) 1,000 mg in 250 mls @ 166.667 mls/hr IVPB BID@0100,1300 [facility]; Protocol Cefepime HCl 2 gm/ Dextrose 100 mls @ 200 mls/hr IVPB Q8H-IV [facility]; Protocol Insulin Aspart (Novolog Vial Sliding Scale -) 1 vial SQ ACHS [facility]; Protocol Last Admin: 12/15/19 11:02 Dose: 6 units Documented by: Insulin Detemir (Levemir Vial) 40 units SQ BID@0700,2200 [facility] Last Admin: 12/15/19 07:00 Dose: 40 units Documented by: Ipratropium [place] (Atrovent 0.02% Nebulizer -) 1 amp NEB Q6H PRN PRN Reason: DYSPEPSIA Stop: 12/22/19 02:18 Methylprednisolone Sodium Succinate (Solu-Medrol -) 40 mg IVPUSH BID [facility] Last Admin: 12/15/19 10:43 Dose: 40 mg Documented by: Mupirocin (Bactroban Ointment (For Decolonization) -) 1 applic NS BID [facility] Stop: 12/20/19 00:14 Last Admin: 12/15/19 06:12 Dose: Not Given Documented by: Pantoprazole Sodium (Protonix -) 20 mg PO DAILY [facility] Last Admin: 12/15/19 10:47 Dose: Not Given Documented by: Zinc Sulfate (Orazinc -) 220 mg NGT BID [facility] GENERAL: A&Ox3, Mildly tachypneic on 50% VM HEAD: NCAT EYES: PERRL, EOMI ENT: dry mucous membranes. NECK: No JVD LUNGS: Diminished breath sounds at the bases, Poor inspiratory effort HEART: S1 S2 ABDOMEN: Soft, non-tender to palpation, not distended, + bowel sounds, no guarding, no rebound MUSCULOSKELETAL: No CVA tenderness. EXTREMITIES: No peripheral edema. NEUROLOGICAL: Non-focal PSYCHIATRIC: Cooperative. SKIN: Warm, dry Laboratory Results - last 24 hr 12/14/19 12/14/19 12/14/19 16:45 16:57 18:35 WBC RBC Hgb Hct MCV MCH MCHC RDW Plt Count MPV Absolute Neuts (auto) Total Counted Neutrophils % Neutrophils % (Manual) Band Neutrophils % Lymphocytes % Lymphocytes % (Manual) Monocytes % Monocytes % (Manual) Eosinophils % Eosinophils % (Manual) Basophils % Basophils % (Manual) Myelocytes % (Man) Promyelocytes % (Man) Blast Cells % (Manual) Nucleated RBC % Metamyelocytes Hypochromia Platelet Estimate Platelet Comment Polychromasia Poikilocytosis Anisocytosis Microcytosis Macrocytosis Anticoagulation Therapy Puncture Site Patient Temperature ABG pH ABG pCO2 ABG pO2 ABG HCO3 ABG O2 Sat (Measured) ABG O2 Content ABG Base Excess [place] Test Patient On Oxygen O2 Delivery Device Oxygen Flow Rate Vent Mode Vent Rate Mechanical Rate PEEP Pressure Support Vent Sodium Potassium Chloride Carbon Dioxide Anion Gap BUN Creatinine Est GFR (CKD-EPI)AfAm Est GFR (CKD-EPI)NonAf POC Glucometer 410 Random Glucose Calcium Phosphorus Magnesium Ferritin 241.7 Total Bilirubin AST ALT Alkaline Phosphatase LD Total 339 H C-Reactive Protein B-Natriuretic Peptide Total Protein Albumin Blood Type O POSITIVE Antibody Screen Negative 12/14/19 12/15/19 12/15/19 21:42 00:10 02:03 WBC 19.8 H RBC 4.24 Hgb 11.2 Hct 34.4 MCV 81.2 MCH 26.4 MCHC 32.5 RDW 14.9 Plt Count 334 MPV 8.3 Absolute Neuts (auto) 18.1 H Total Counted 100 Neutrophils % 91.2 H Neutrophils % (Manual) 86.0 H Band Neutrophils % 3.0 Lymphocytes % 3.0 L D Lymphocytes % (Manual) 4.0 L D Monocytes % 4.4 Monocytes % (Manual) 7 Eosinophils % 0.0 Eosinophils % (Manual) Basophils % 1.4 D Basophils % (Manual) Myelocytes % (Man) Promyelocytes % (Man) Blast Cells % (Manual) Nucleated RBC % 0 Metamyelocytes Hypochromia 1+ Platelet Estimate Adequate Platelet Comment No clumping noted Polychromasia Poikilocytosis Anisocytosis Microcytosis Macrocytosis Anticoagulation Therapy No Result Required. Puncture Site Left radial Patient Temperature No Result Required. ABG pH 7.486 H ABG pCO2 34.60 L ABG pO2 42.2 L ABG HCO3 25.5 ABG O2 Sat (Measured) 82.1 L ABG O2 Content No Result Required. ABG Base Excess 2.5 H [place] Test Positive Patient On Oxygen Yes O2 Delivery Device Nrm Oxygen Flow Rate 100% Vent Mode No Result Required. Vent Rate No Result Required. Mechanical Rate No Result Required. PEEP No Result Required. Pressure Support Vent No Result Required. Sodium Potassium Chloride Carbon Dioxide Anion Gap BUN Creatinine Est GFR (CKD-EPI)AfAm Est GFR (CKD-EPI)NonAf POC Glucometer 241 Random Glucose Calcium Phosphorus Magnesium Ferritin Total Bilirubin AST ALT Alkaline Phosphatase LD Total C-Reactive Protein B-Natriuretic Peptide Total Protein Albumin Blood Type Antibody Screen 12/15/19 12/15/19 12/15/19 02:03 04:25 06:55 WBC RBC Hgb Hct MCV MCH MCHC RDW Plt Count MPV Absolute Neuts (auto) Total Counted Neutrophils % Neutrophils % (Manual) Band Neutrophils % Lymphocytes % Lymphocytes % (Manual) Monocytes % Monocytes % (Manual) Eosinophils % Eosinophils % (Manual) Basophils % Basophils % (Manual) Myelocytes % (Man) Promyelocytes % (Man) Blast Cells % (Manual) Nucleated RBC % Metamyelocytes Hypochromia Platelet Estimate Platelet Comment Polychromasia Poikilocytosis Anisocytosis Microcytosis Macrocytosis Anticoagulation Therapy No Result Required. Puncture Site Right radial Patient Temperature No Result Required. ABG pH 7.302 L ABG pCO2 60.20 H ABG pO2 75.2 L ABG HCO3 29.1 H ABG O2 Sat (Measured) 93.4 L ABG O2 Content No Result Required. ABG Base Excess 1.6 [place] Test Positive Patient On Oxygen Yes O2 Delivery Device Vent Oxygen Flow Rate 100% Vent Mode A/c Vent Rate 16 Mechanical Rate Yes PEEP 12.0 Pressure Support Vent 400 Sodium 137 Potassium 5.2 H Chloride 102 Carbon Dioxide 28 Anion Gap 6 L BUN 28.5 H Creatinine 0.8 Est GFR (CKD-EPI)AfAm 101.04 Est GFR (CKD-EPI)NonAf 87.18 POC Glucometer 254 Random Glucose 209 H Calcium 8.7 Phosphorus 3.2 Magnesium 2.3 Ferritin Total Bilirubin 0.2 AST 45 H ALT 57 Alkaline Phosphatase 176 H LD Total C-Reactive Protein B-Natriuretic Peptide Total Protein 6.5 Albumin 1.6 L Blood Type Antibody Screen 12/15/19 12/15/19 12/15/19 08:00 10:56 11:18 WBC 23.4 H RBC 3.93 Hgb 10.4 L Hct 32.7 MCV 83.3 MCH 26.4 MCHC 31.7 L RDW 15.0 Plt Count 295 MPV 8.0 Absolute Neuts (auto) 20.9 H Total Counted Neutrophils % 89.1 H Neutrophils % (Manual) 90.1 H Band Neutrophils % 0.0 Lymphocytes % 3.3 L Lymphocytes % (Manual) 3.9 L Monocytes % 7.5 Monocytes % (Manual) 4 Eosinophils % 0.0 Eosinophils % (Manual) 0.0 Basophils % 0.1 Basophils % (Manual) 0.0 Myelocytes % (Man) 1 D Promyelocytes % (Man) 0 Blast Cells % (Manual) 0 Nucleated RBC % 0 Metamyelocytes 0 D Hypochromia 0 Platelet Estimate Normal Platelet Comment Polychromasia 0 Poikilocytosis 0 Anisocytosis 0 Microcytosis 0 Macrocytosis 0 Anticoagulation Therapy No Result Required. Puncture Site Left radial Patient Temperature No Result Required. ABG pH 7.238 L ABG pCO2 62.50 H ABG pO2 58.9 L ABG HCO3 26.1 ABG O2 Sat (Measured) 85.1 L ABG O2 Content No Result Required. ABG Base Excess -2.2 L [place] Test No Result Required. Patient On Oxygen Yes O2 Delivery Device V Oxygen Flow Rate 100 Vent Mode Ac Vent Rate 18 Mechanical Rate V PEEP 10.0 Pressure Support Vent 350 Sodium Potassium Chloride Carbon Dioxide Anion Gap BUN Creatinine Est GFR (CKD-EPI)AfAm Est GFR (CKD-EPI)NonAf POC Glucometer 268 Random Glucose Calcium Phosphorus Magnesium Ferritin Total Bilirubin AST ALT Alkaline Phosphatase LD Total C-Reactive Protein B-Natriuretic Peptide Total Protein Albumin Blood Type Antibody Screen 12/15/19 11:18 WBC RBC Hgb Hct MCV MCH MCHC RDW Plt Count MPV Absolute Neuts (auto) Total Counted Neutrophils % Neutrophils % (Manual) Band Neutrophils % Lymphocytes % Lymphocytes % (Manual) Monocytes % Monocytes % (Manual) Eosinophils % Eosinophils % (Manual) Basophils % Basophils % (Manual) Myelocytes % (Man) Promyelocytes % (Man) Blast Cells % (Manual) Nucleated RBC % Metamyelocytes Hypochromia Platelet Estimate Platelet Comment Polychromasia Poikilocytosis Anisocytosis Microcytosis Macrocytosis Anticoagulation Therapy Puncture Site Patient Temperature ABG pH ABG pCO2 ABG pO2 ABG HCO3 ABG O2 Sat (Measured) ABG O2 Content ABG Base Excess [place] Test Patient On Oxygen O2 Delivery Device Oxygen Flow Rate Vent Mode Vent Rate Mechanical Rate PEEP Pressure Support Vent Sodium 140 Potassium 4.9 Chloride 105 Carbon Dioxide 27 Anion Gap 8 BUN 31.5 H Creatinine 1.2 Est GFR (CKD-EPI)AfAm 61.89 Est GFR (CKD-EPI)NonAf 53.40 POC Glucometer Random Glucose 268 H Calcium 8.3 L Phosphorus 7.6 H Magnesium 2.4 Ferritin Total Bilirubin 0.2 AST 80 H ALT 89 H Alkaline Phosphatase 170 H LD Total 393 H C-Reactive Protein 9.5 H B-Natriuretic Peptide 624.4 H Total Protein 5.8 L Albumin 1.6 L Blood Type Antibody Screen ASSESSMENT/PLAN: Acute Respiratory Failure due to9 COVID19 Pneumonitis Capillary Leak Syndrome DM Hyperglycemia HTN Gastroparesis Sepsis PE ruled out LTVV : Follow PPlat Dexamethasone Glycemic control Strict I & O Full AC Strict Isolation and usage of Full PPE Vit C Vitamin D Zinc S/P Remdesivir x 5 days Convalescent Plasma ordered If cultures are negative will give Actemra Critical care time spent in reviewing chart, evaluating patient and formulating plan - [address] Rivas
--- NOTE | 2019-12-15 13:34 | PN ---
Physical Exam: SUBJECTIVE: Patient seen and examined at bedside today s/p being intubated 2/2 desaturating. Additionally, one femoral and one EJ central line placed. OBJECTIVE: Vital Signs Period Temp Pulse Resp BP Sys/Aguilar Pulse Ox Last 24 Hr 97.0 F-100.2 F 0-146 16-40 70-164/40-96 75-95 GENERAL: Intubated and sedated EYES: Not able to assess NECK: no JVD; no lymphadenopathy LUNGS: Tachypnic, scattered coarse lung sounds BL HEART:tachycardic, S1, S2 without murmur, rub or gallop. ABDOMEN: Soft, NT ND +BS in all 4 quadrants . EXTREMITIES: 2+ pulses, warm, well-perfused, no edema PSYCH: Not able to assess SKIN: Warm, dry, normal turgor, no rashes or lesions noted ABG Results ABG pH 7.238 (7.350-7.450) L 12/15/19 08:00 ABG HCO3 26.1 mmol/L (22-27) 12/15/19 08:00 ABG O2 Sat (Measured) 85.1 mmHg (95-98) L 12/15/19 08:00 ABG O2 Content No Result Required. 12/15/19 08:00 ABG Base Excess -2.2 mmol/L (-2-2) L 12/15/19 08:00 CBC, BMP 12/15/19 11:18 12/15/19 11:18 Active Medications Acetaminophen (Ofirmev Injection -) 1,000 mg IVPB Q6H PRN PRN Reason: FEVER Stop: 12/16/19 02:38 Last Admin: 12/15/19 04:59 Dose: 1,000 mg Documented by: Acetaminophen (Tylenol -) 650 mg PO Q6H PRN PRN Reason: Fever Or Pain Albuterol Sulfate (Ventolin Hfa Inhaler -) 2 puff IH Q4H PRN PRN Reason: SHORT OF BREATH/WHEEZING Artificial Tears (Artificial Tears) 1 drop OU TID PRN PRN Reason: Dry eyes Ascorbic Acid (Vitamin C Oral Solution -) 250 mg NGT BID [facility] Budesonide/Formoterol Fumarate (Symbicort 160/4.5mcg -) 2 puff IH BID [facility] Last Admin: 12/15/19 12:06 Dose: Not Given Documented by: Chlorhexidine Gluconate (Hibiclens For Decolonization -) 1 applic TP HS [facility] Cholecalciferol (Vitamin D3 Oral Solution -) 1,000 unit GT DAILY [facility] Enoxaparin Sodium (Lovenox -) 80 mg SQ BID [facility] Last Admin: 12/15/19 10:43 Dose: 80 mg Documented by: Gabapentin (Neurontin -) 900 mg PO BID [facility] Last Admin: 12/15/19 10:47 Dose: Not Given Documented by: Sodium Chloride (Normal Saline -) 1,000 mls @ 100 mls/hr IV ASDIR [facility] Last Admin: 12/15/19 12:07 Dose: 100 mls/hr Documented by: Propofol (Diprivan -) 1,000,000 mcg in 100 mls @ 2.395 mls/hr IVPB TITR [facility]; Protocol Last Admin: 12/15/19 12:09 Dose: 50 mcg/kg/min, 23.95 mls/hr Documented by: Midazolam HCl 100 mg/ Sodium (Chloride) 100 mls @ 1 mls/hr IVPB TITR [facility]; Protocol Last Admin: 12/15/19 12:10 Dose: 6 mg/hr, 6 mls/hr Documented by: Vecuronium [place] (Vecuronium [place]) 100 mg in 100 mls @ 4.79 mls/hr IVPB TITR [facility] Last Admin: 12/15/19 12:11 Dose: 1 mcg/kg/min, 4.79 mls/hr Documented by: Vancomycin HCl (Vancomycin (Pre-Docked)) 1,000 mg in 250 mls @ 166.667 mls/hr IVPB BID@0100,1300 [facility]; Protocol Cefepime HCl 2 gm/ Dextrose 100 mls @ 200 mls/hr IVPB Q8H-IV [facility]; Protocol Insulin Aspart (Novolog Vial Sliding Scale -) 1 vial SQ ACHS [facility]; Protocol Last Admin: 12/15/19 11:02 Dose: 6 units Documented by: Insulin Detemir (Levemir Vial) 40 units SQ BID@0700,2200 [facility] Last Admin: 12/15/19 07:00 Dose: 40 units Documented by: Ipratropium [place] (Atrovent 0.02% Nebulizer -) 1 amp NEB Q6H PRN PRN Reason: DYSPEPSIA Stop: 12/22/19 02:18 Methylprednisolone Sodium Succinate (Solu-Medrol -) 40 mg IVPUSH BID [facility] Last Admin: 12/15/19 10:43 Dose: 40 mg Documented by: Mupirocin (Bactroban Ointment (For Decolonization) -) 1 applic NS BID [facility] Stop: 12/20/19 00:14 Last Admin: 12/15/19 06:12 Dose: Not Given Documented by: Pantoprazole Sodium (Protonix -) 20 mg PO DAILY [facility] Last Admin: 12/15/19 10:47 Dose: Not Given Documented by: Zinc Sulfate (Orazinc -) 220 mg NGT BID [facility] ASSESSMENT/PLAN: Patient is a 49 year old female with past medical history of DM, HTN, gastroparesis, came in for SOB, admitted for COVID pneumonitis. Currently sedated and intubated. Neuro -Intubated & Sedated -Monitor vital signs -Vecuronium -Midazolam -Propofol Cardio -Tachycardic at 117 -HTN history: BP stable at 110/66. -not on home meds -monitor hemodynamics Endo DM -ISS -Levemir 40sq BID and novolog standing TIDAC, ID -Likely infectious process: WBC trending up w/ left shift -completed abx course of ceftriaxone/azithromycin -Completed Remdesivir -Continue Cefepime -Continue Vancomycin -Follow up Blood Cultures then begin Tocilizumab therapy (12/14) Pulmonary -COVID 19 positive -Patient currently saturating 90 while intubated: TV 350; RR 20; PF 60; PEEP 7; FIO2 100 -F/U CXR & ABG -completed 5 days of remdesivir -convalescent plasma; to receive today (12/14) -completed azithromycin/Ceftriaxone -medrol 40 BID -zine/vit c/ vit D -on lovenox for AC -symbicort -albuterol PRN -maintain o2 sat >90%; -monitor inflammatory markers Renal -BUN: 31.5 -ABG Trend (12/14) -7.4/34/42/25 -7.3/60/75/29 -7.23/62/58/26 FEN Fluid: NS Electrolytes: FU [place] [facility] Nutrition: Orogastric tube - sodium/diabetic diet dvt ppx: -Lovenox 80 BID (Full dose) Visit type - Emergency Visit Emergency Visit: No - New Patient This patient is new to me today: Yes Date on this admission: 12/15/19 - Critical Care Critical Care patient: Yes Total Critical Care Time (in minutes): 36 Critical Care Statement: The care of this patient involved high complexity decision making to prevent further life threatening deterioration of the patient's condition and/or to evaluate & treat vital organ system(s) failure or risk of failure. - Discharge Referral Referred to [facility] No ATTENDING PHYSICIAN STATEMENT I saw and evaluated the patient. I reviewed the resident's note and discussed the case with the resident. I agree with the resident's findings and plan as documented. SUBJECTIVE: OBJECTIVE: ASSESSMENT AND PLAN:
[2019-12-15] MEDS: ARTIFICIAL TEARS (POLYVINYL ALCOHOL) OPTH DROPS OU PRN (13:59)
[2019-12-15] MEDS: CEFEPIME 2 GM in DEXTROSE 5%-WATER - 100 ML IVPB SCH ×2 (15:31→18:08)
[2019-12-15] MEDS ORDERED: PT OWN MED DRAWER 7, Y5N ONE (18:04)
[2019-12-15] MEDS: CHLORHEXIDINE GLUCONATE 4% CLEANSER FOR DECOLONIZATION TP SCH (21:01)
[2019-12-15] MEDS: ZINC SULFATE 220 MG CAPSULE (FP) NGT SCH (21:02)
[2019-12-15] MEDS: ASCORBIC ACID 500 MG/5 ML UNIT DOSE CUP NGT SCH (21:05)
[2019-12-16] MEDS: CEFEPIME 2 GM in DEXTROSE 5%-WATER - 100 ML IVPB SCH ×3 (01:34→18:00)
[2019-12-16] MEDS: PROPOFOL 1,000,000 MCG/100 ML VIAL IVPB SCH ×4 (01:56→14:40)
[2019-12-16] MEDS: MIDAZOLAM 100 MG in SODIUM CHLORIDE 100 ML IVPB SCH ×2 (04:00→13:50)
[2019-12-16] MEDS: SODIUM CHLORIDE 1,000 ML IV SCH (05:00)
[2019-12-16 06:40] LABS: ARTERIAL BLD GAS O2 SATURATION 94.2 mmHg (95-98); ARTERIAL BLOOD GAS BASE EXCESS -1.8 mmol/L (-2-2); ARTERIAL BLOOD GAS PO2 76.8 mmHg (80-100); ARTERIAL BLOOD GAS pH 7.315 (7.350-7.450)
[2019-12-16] MEDS: INSULIN (LEVEMIR) 100 UNITS/ML UNITS SQ SCH ×2 (06:41→23:40)
[2019-12-16] MEDS: VECURONIUM BROMIDE 100 MG/100 ML BAG IVPB SCH (06:41)
[2019-12-16] MEDS: INSULIN SLIDING SCALE (NOVOLOG) 1 VIAL SQ SCH ×4 (06:42→21:08)
[2019-12-16 06:48] LABS: ALLENS TEST POSITIVE
[2019-12-16 06:49] LABS: VENT MODE A/C; VENT RATE 20
[2019-12-16 07:07] LABS: BASO % 0.2 % (0-2.0); HEMATOCRIT 29.4 % (32.4-45.2); HEMOGLOBIN 9.5 GM/dL (10.7-15.3); LYMPH % 4.4 % (8-40); MCH 26.6 pg (25.7-33.7); MCHC 32.2 g/dl (32.0-36.0); MEAN CELL VOLUME 82.8 fl (80-96); MEAN PLT VOLUME 8.4 fl (7.5-11.1); MONO % 7.5 % (3.8-10.2); NEUT % 87.9 % (42.8-82.8); PLATELET COUNT 248 K/MM3 (134-434); RBC 3.55 M/mm3 (3.60-5.2); RDW 14.9 % (11.6-15.6); WHITE BLOOD COUNT 12.2 K/mm3 (4.0-10.0)
[2019-12-16 07:24] LABS: BLOOD UREA NITROGEN 33.8 mg/dL (7-18); CALCIUM 8.1 mg/dL (8.5-10.1); MAGNESIUM 2.5 mg/dL (1.8-2.4); PHOSPHOROUS 4.4 mg/dL (2.5-4.9); POTASSIUM 4.6 mmol/L (3.5-5.1)
[2019-12-16] MEDS ORDERED: PT OWN MED DRAWER 7, Y5N ONE (08:42)
[2019-12-16] MEDS: PANTOPRAZOLE SODIUM 40 MG VIAL IVPUSH SCH (09:06)
[2019-12-16] MEDS: methylPREDNISolone NA SUCC 40 MG/1 ML VIAL IVPUSH SCH ×2 (09:07→21:09)
[2019-12-16] MEDS: ZINC SULFATE 220 MG CAPSULE (FP) NGT SCH ×2 (09:07→21:08)
[2019-12-16] MEDS: ENOXAPARIN NA (PORCINE) 80 MG/0.8 ML DISP.SYRIN SQ SCH ×2 (09:07→21:08)
[2019-12-16] MEDS: CHOLECALCIFEROL (VIT D SOLUTION) 400 UNIT/1 ML DROPS GT SCH (09:08)
[2019-12-16] MEDS: ASCORBIC ACID 500 MG/5 ML UNIT DOSE CUP NGT SCH ×2 (09:08→21:09)
[2019-12-16] MEDS: MUPIROCIN 2% TOPICAL OINTMENT FOR DECOLONIZATION NS SCH ×2 (09:09→21:08)
[2019-12-16] MEDS: BUDESONIDE/FORMETEROL FUMARATE 160/4.5 mcg INHALER IH SCH ×2 (09:09→21:09)
--- NOTE | 2019-12-16 10:26 | PN ---
Progress Note (short form) - Note Progress Note: Progress Note Pulm/CCM Pt seen and examined in the ICU. Received convalescent plasma yesterday. Received off paralysis. Remains on FiO2 100%. O2 sat 94%. Vent: AC/VC; 20/350/100/7 Plat: 25 PIP:29.8 Active Medications Albuterol Sulfate (Ventolin Hfa Inhaler -) 2 puff IH Q4H PRN PRN Reason: SHORT OF BREATH/WHEEZING Artificial Tears (Artificial Tears) 1 drop OU TID PRN PRN Reason: Dry eyes Last Admin: 12/15/19 13:59 Dose: 1 drop Documented by: Ascorbic Acid (Vitamin C Oral Solution -) 250 mg NGT BID [facility] Last Admin: 12/16/19 09:08 Dose: 250 mg Documented by: Budesonide/Formoterol Fumarate (Symbicort 160/4.5mcg -) 2 puff IH BID [facility] Last Admin: 12/16/19 09:09 Dose: Not Given Documented by: Chlorhexidine Gluconate (Hibiclens For Decolonization -) 1 applic TP HS [facility] Last Admin: 12/15/19 21:01 Dose: 1 applic Documented by: Cholecalciferol (Vitamin D3 Oral Solution -) 1,000 unit GT DAILY [facility] Last Admin: 12/16/19 09:08 Dose: 1,000 units Documented by: Enoxaparin Sodium (Lovenox -) 80 mg SQ BID [facility] Last Admin: 12/16/19 09:07 Dose: 80 mg Documented by: Sodium Chloride (Normal Saline -) 1,000 mls @ 100 mls/hr IV ASDIR [facility] Last Admin: 12/16/19 05:00 Dose: 100 mls/hr Documented by: Propofol (Diprivan -) 1,000,000 mcg in 100 mls @ 2.395 mls/hr IVPB TITR [facility]; Protocol Last Admin: 12/16/19 05:00 Dose: 50 mcg/kg/min, 23.95 mls/hr Documented by: Midazolam HCl 100 mg/ Sodium (Chloride) 100 mls @ 1 mls/hr IVPB TITR [facility]; Protocol Last Admin: 12/16/19 04:00 Dose: 6 mg/hr, 6 mls/hr Documented by: Vecuronium [place] (Vecuronium [place]) 100 mg in 100 mls @ 4.79 mls/hr IVPB TITR [facility] Last Admin: 12/16/19 06:41 Dose: Not Given Documented by: Vancomycin HCl (Vancomycin (Pre-Docked)) 1,000 mg in 250 mls @ 166.667 mls/hr IVPB BID@0100,1300 [facility]; Protocol Cefepime HCl 2 gm/ Dextrose 100 mls @ 200 mls/hr IVPB Q8H-IV [facility]; Protocol Last Admin: 12/16/19 09:06 Dose: 200 mls/hr Documented by: Insulin Aspart (Novolog Vial Sliding Scale -) 1 vial SQ ACHS [facility]; Protocol Last Admin: 12/16/19 06:42 Dose: Not Given Documented by: Insulin Detemir (Levemir Vial) 40 units SQ BID@0700,2200 [facility] Last Admin: 12/16/19 06:41 Dose: 40 units Documented by: Ipratropium [place] (Atrovent 0.02% Nebulizer -) 1 amp NEB Q6H PRN PRN Reason: DYSPEPSIA Stop: 12/22/19 02:18 Methylprednisolone Sodium Succinate (Solu-Medrol -) 40 mg IVPUSH BID [facility] Last Admin: 12/16/19 09:07 Dose: 40 mg Documented by: Mupirocin (Bactroban Ointment (For Decolonization) -) 1 applic NS BID [facility] Stop: 12/20/19 00:14 Last Admin: 12/16/19 09:09 Dose: 1 applic Documented by: Pantoprazole Sodium (Protonix Iv) 40 mg IVPUSH DAILY [facility] Last Admin: 12/16/19 09:06 Dose: 40 mg Documented by: Zinc Sulfate (Orazinc -) 220 mg NGT BID [facility] Last Admin: 12/16/19 09:07 Dose: 220 mg Documented by: Vital Signs Period Temp Pulse Resp BP Sys/Aguilar Pulse Ox Last 24 Hr 96.5 F-99.1 F 104-122 20-36 105-136/62-79 90-96 Intake & Output 12/13/19 12/14/19 12/15/19 12/16/19 23:59 23:59 23:59 23:59 Intake Total 2752 031 7964 1760 Output Total 1850 300 Balance 1700 749 361 4912 GEN: Orally intubated, sedated ENT: Sclera clear LUNGS: Diminished bases; light rales CV: S1S2, tachy RRR ABD: Soft, ND, NT+ bowel sounds, no guarding, no rebound EXT: WWP; no edema NEURO: RASS-4 CBC,CMP WBC 12.2 K/mm3 (4.0-10.0) H 12/16/19 05:30 RBC 3.55 M/mm3 (3.60-5.2) L 12/16/19 05:30 Hgb 9.5 GM/dL (10.7-15.3) L 12/16/19 05:30 Hct 29.4 % (32.4-45.2) L 12/16/19 05:30 MCV 82.8 fl (80-96) 12/16/19 05:30 MCH 26.6 pg (25.7-33.7) 12/16/19 05:30 MCHC 32.2 g/dl (32.0-36.0) 12/16/19 05:30 RDW 14.9 % (11.6-15.6) 12/16/19 05:30 Plt Count 248 K/MM3 (134-434) 12/16/19 05:30 MPV 8.4 fl (7.5-11.1) 12/16/19 05:30 Absolute Neuts (auto) 10.7 K/mm3 (1.5-8.0) H 12/16/19 05:30 Total Counted 100 12/15/19 02:03 Neutrophils % 87.9 % (42.8-82.8) H 12/16/19 05:30 Neutrophils % (Manual) 90.1 % (42.8-82.8) H 12/15/19 11:18 Band Neutrophils % 0.0 % 12/15/19 11:18 Lymphocytes % 4.4 % (8-40) L D 12/16/19 05:30 Lymphocytes % (Manual) 3.9 % (8-40) L 12/15/19 11:18 Monocytes % 7.5 % (3.8-10.2) 12/16/19 05:30 Monocytes % (Manual) 4 % (3.8-10.2) 12/15/19 11:18 Eosinophils % 0.0 % (0-4.5) 12/16/19 05:30 Eosinophils % (Manual) 0.0 % (0-4.5) 12/15/19 11:18 Basophils % 0.2 % (0-2.0) 12/16/19 05:30 Basophils % (Manual) 0.0 % (0-2.0) 12/15/19 11:18 Myelocytes % (Man) 1 % (0-2) D 12/15/19 11:18 Promyelocytes % (Man) 0 % (0-2) 12/15/19 11:18 Blast Cells % (Manual) 0 % (0-0) 12/15/19 11:18 Nucleated RBC % 0 % (0-0) 12/16/19 05:30 Metamyelocytes 0 % (0-2) D 12/15/19 11:18 Hypochromia 0 12/15/19 11:18 Platelet Estimate Normal 12/15/19 11:18 Platelet Comment No clotting detected 12/15/19 02:03 Platelet Comment No clumping noted 12/15/19 02:03 Polychromasia 0 12/15/19 11:18 Poikilocytosis 0 12/15/19 11:18 Anisocytosis 0 12/15/19 11:18 Microcytosis 0 12/15/19 11:18 Macrocytosis 0 12/15/19 11:18 ESR 101 mm/hr (0-20) H 12/09/19 07:51 Sodium 144 mmol/L (136-145) 12/16/19 05:30 Potassium 4.6 mmol/L (3.5-5.1) 12/16/19 05:30 Chloride 111 mmol/L (98-107) H 12/16/19 05:30 Carbon Dioxide 27 mmol/L (21-32) 12/16/19 05:30 Anion Gap 5 MMOL/L (8-16) L 12/16/19 05:30 BUN 33.8 mg/dL (7-18) H 12/16/19 05:30 Creatinine 1.0 mg/dL (0.55-1.3) 12/16/19 05:30 Est GFR (CKD-EPI)AfAm 77.15 12/16/19 05:30 Est GFR (CKD-EPI)NonAf 66.57 12/16/19 05:30 POC Glucometer 130 UNITS (80-120) 12/16/19 06:19 Random Glucose 143 mg/dL (74-106) H 12/16/19 05:30 Hemoglobin A1c % < 3.5 % (4.2-6.3) L 12/05/19 12:01 Lactic Acid 0.9 mmol/L (0.4-2.0) 12/05/19 15:14 Calcium 8.1 mg/dL (8.5-10.1) L 12/16/19 05:30 Phosphorus 4.4 mg/dL (2.5-4.9) 12/16/19 05:30 Magnesium 2.5 mg/dL (1.8-2.4) H 12/16/19 05:30 Ferritin 241.7 ng/ml (8-388) 12/14/19 16:45 Total Bilirubin 0.2 mg/dL (0.2-1) 12/15/19 11:18 AST 80 U/L (15-37) H 12/15/19 11:18 ALT 89 U/L (13-61) H 12/15/19 11:18 Alkaline Phosphatase 170 U/L (45-117) H 12/15/19 11:18 LD Total 393 U/L (84-246) H 12/15/19 11:18 Troponin I < 0.02 ng/ml (0.00-0.05) 12/05/19 06:15 C-Reactive Protein 9.5 MG/DL (0.00-0.3) H 12/15/19 11:18 B-Natriuretic Peptide 624.4 pg/ml (5-125) H 12/15/19 11:18 Total Protein 5.8 g/dl (6.4-8.2) L 12/15/19 11:18 Albumin 1.6 g/dl (3.4-5.0) L 12/15/19 11:18 Beta-Hydroxybutyrate 29.7 mg/dL (0.2-2.8) H 12/05/19 12:01 Beta HCG, Quant Cancelled 12/05/19 06:15 Serum , Qual Negative 12/05/19 08:00 ABG Results ABG pH 7.315 (7.350-7.450) L 12/16/19 05:55 ABG HCO3 24.6 mmol/L (22-27) 08/08/20 05:55 ABG O2 Sat (Measured) 94.2 mmHg (95-98) L 12/16/19 05:55 ABG O2 Content No Result Required. 12/16/19 05:55 ABG Base Excess -1.8 mmol/L (-2-2) 12/16/19 05:55 Microbiology 12/05/19 06:00 Blood - Peripheral Venous Blood Culture - Final NO GROWTH AFTER 5 DAYS INCUBATION 12/05/19 06:15 Blood - Peripheral Venous Blood Culture - Final NO GROWTH AFTER 5 DAYS INCUBATION 12/08/19 22:46 Urine - Urine Clean Catch Legionella Antigen - Final 12/08/19 22:46 Urine - Urine Clean Catch Streptococcus pneumoniae Antigen (M - Final 12/05/19 05:49 Urine - Urine Clean Catch Urine Culture - Final Escherichia Coli 12/05/19 05:49 Urine - Urine Clean Catch Legionella Antigen - Final 12/05/19 05:49 Urine - Urine Clean Catch Streptococcus pneumoniae Antigen (M - Final ASSESSMENT/PLAN: Acute Respiratory Failure due to9 COVID19 Pneumonitis Capillary Leak Syndrome DM Hyperglycemia HTN Gastroparesis Sepsis PE ruled out LTVV; PPlat goal<30 Cont Dexamethasone Sedation for vent synchrony Diuresis for net even to neg Full AC Strict Isolation and usage of Full PPE S/P Remdesivir x 5 days F/u Convalescent Plasma treatment ID following If cultures are negative will give Actemra Vit C; Vitamin D; Zinc Strict I & O Replete electrolytes ALISHA Santamaria CCT 35mins
--- NOTE | 2019-12-16 10:42 | PN ---
Progress Note (short form) - Note Progress Note: chart reviewed-patient new to de admitted 12/04 covid positive pneumonia DM s/p remdesivir s/p rocephin/zithromax intubated yeserday am and transferred to ICU right IJ cvp placed as well s/p convalescent plasma yesterday started on vanco/cefepime for HAP cultures pending transiently on pressors- now off on sedation fio2 100% Vital Signs Period Temp Pulse Resp BP Sys/Aguilar Pulse Ox Last 24 Hr 96.5 F-99.1 F 104-122 20-36 105-136/62-79 90-96 cor-rrr lungs decreased bs at bases abd soft,nt ext no edema +arevalo +central line CBC, BMP 12/16/19 05:30 12/16/19 05:30 Microbiology 12/05/19 06:00 Blood - Peripheral Venous Blood Culture - Final NO GROWTH AFTER 5 DAYS INCUBATION 12/05/19 06:15 Blood - Peripheral Venous Blood Culture - Final NO GROWTH AFTER 5 DAYS INCUBATION 12/08/19 22:46 Urine - Urine Clean Catch Legionella Antigen - Final 12/08/19 22:46 Urine - Urine Clean Catch Streptococcus pneumoniae Antigen (M - Final 12/05/19 05:49 Urine - Urine Clean Catch Urine Culture - Final Escherichia Coli 12/05/19 05:49 Urine - Urine Clean Catch Legionella Antigen - Final 12/05/19 05:49 Urine - Urine Clean Catch Streptococcus pneumoniae Antigen (M - Final cxray reviewed- bilateral infiltrates Active Medications Albuterol Sulfate (Ventolin Hfa Inhaler -) 2 puff IH Q4H PRN PRN Reason: SHORT OF BREATH/WHEEZING Artificial Tears (Artificial Tears) 1 drop OU TID PRN PRN Reason: Dry eyes Last Admin: 12/15/19 13:59 Dose: 1 drop Documented by: Ascorbic Acid (Vitamin C Oral Solution -) 250 mg NGT BID [facility] Last Admin: 12/16/19 09:08 Dose: 250 mg Documented by: Budesonide/Formoterol Fumarate (Symbicort 160/4.5mcg -) 2 puff IH BID [facility] Last Admin: 12/16/19 09:09 Dose: Not Given Documented by: Chlorhexidine Gluconate (Hibiclens For Decolonization -) 1 applic TP HS [facility] Last Admin: 12/15/19 21:01 Dose: 1 applic Documented by: Cholecalciferol (Vitamin D3 Oral Solution -) 1,000 unit GT DAILY [facility] Last Admin: 12/16/19 09:08 Dose: 1,000 units Documented by: Enoxaparin Sodium (Lovenox -) 80 mg SQ BID [facility] Last Admin: 12/16/19 09:07 Dose: 80 mg Documented by: Sodium Chloride (Normal Saline -) 1,000 mls @ 100 mls/hr IV ASDIR [facility] Last Admin: 12/16/19 05:00 Dose: 100 mls/hr Documented by: Propofol (Diprivan -) 1,000,000 mcg in 100 mls @ 2.395 mls/hr IVPB TITR [facility]; Protocol Last Admin: 12/16/19 05:00 Dose: 50 mcg/kg/min, 23.95 mls/hr Documented by: Midazolam HCl 100 mg/ Sodium (Chloride) 100 mls @ 1 mls/hr IVPB TITR [facility]; Protocol Last Admin: 12/16/19 04:00 Dose: 6 mg/hr, 6 mls/hr Documented by: Vecuronium [place] (Vecuronium [place]) 100 mg in 100 mls @ 4.79 mls/hr IVPB TITR [facility] Last Admin: 12/16/19 06:41 Dose: Not Given Documented by: Cefepime HCl 2 gm/ Dextrose 100 mls @ 200 mls/hr IVPB Q8H-IV [facility]; Protocol Last Admin: 12/16/19 09:06 Dose: 200 mls/hr Documented by: Vancomycin HCl 1,000 mg/ (Dextrose) 250 mls @ 166.667 mls/hr IVPB Q12H [facility]; Protocol Insulin Aspart (Novolog Vial Sliding Scale -) 1 vial SQ ACHS [facility]; Protocol Last Admin: 12/16/19 06:42 Dose: Not Given Documented by: Insulin Detemir (Levemir Vial) 40 units SQ BID@0700,2200 [facility] Last Admin: 12/16/19 06:41 Dose: 40 units Documented by: Ipratropium [place] (Atrovent 0.02% Nebulizer -) 1 amp NEB Q6H PRN PRN Reason: DYSPEPSIA Stop: 12/22/19 02:18 Methylprednisolone Sodium Succinate (Solu-Medrol -) 40 mg IVPUSH BID [facility] Last Admin: 12/16/19 09:07 Dose: 40 mg Documented by: Mupirocin (Bactroban Ointment (For Decolonization) -) 1 applic NS BID [facility] Stop: 12/20/19 00:14 Last Admin: 12/16/19 09:09 Dose: 1 applic Documented by: Pantoprazole Sodium (Protonix Iv) 40 mg IVPUSH DAILY [facility] Last Admin: 12/16/19 09:06 Dose: 40 mg Documented by: Zinc Sulfate (Orazinc -) 220 mg NGT BID [facility] Last Admin: 12/16/19 09:07 Dose: 220 mg Documented by: a/p COVID-19 pneumonia- s/p convalescent plasma last night, s/p 5 days remdesvir- RESP FAILURE- intubated yesterday- treat for HAP with vanco/cefepime- f/u cultures, leukocytosis improved, follow vanco levels off pressors Diabetes elevated lfts- ?due to hypotension, will repeat today Pen allergy follow inflammatory markers f/u cultures vent management per ICU team overall status guarded over 35 minutes spent in the care of this critically ill patient d/w icu nurse and supervising editor news reel
[2019-12-16] MEDS: VANCOMYCIN 1 GRAM (PRE-DOCKED) 1,000 MG/250 ML BAG IVPB SCH ×2 (10:58→22:49)
[2019-12-16 11:11] LABS: ALBUMIN 1.7 g/dl (3.4-5.0); BILIRUBIN,DIRECT 0.1 mg/dL (0.0-0.2); BILIRUBIN,TOTAL 0.3 mg/dL (0.2-1); TOT PROT 5.7 g/dl (6.4-8.2)
[2019-12-16] MEDS: ACETAMINOPHEN 1000 MG/100 ML VIAL (NON FORMULARY) IVPB PRN (11:55)
[2019-12-16] MEDS ORDERED: ACETAMINOPHEN 1000 MG/100 ML VIAL (NON FORMULARY) IVPB PRN (12:15)
[2019-12-16] MEDS ORDERED: VANCOMYCIN 1 GRAM (PRE-DOCKED) 1,000 MG/250 ML BAG IVPB SCH (13:15)
[2019-12-16] MEDS ORDERED: MIDAZOLAM 100 MG/100 ML MG IVPB ONE (13:47)
[2019-12-16] MEDS: CHLORHEXIDINE GLUCONATE 4% CLEANSER FOR DECOLONIZATION TP SCH (21:08)
[2019-12-17] MEDS ORDERED: MIDAZOLAM IN 0.9 % SOD.CHLORID 1 MG/1 ML PLAST..BAG ONE ×3 (00:15→20:40)
[2019-12-17] MEDS ORDERED: PT OWN MED DRAWER 7, Y5N ONE ×3 (00:54→20:57)
[2019-12-17] MEDS: CEFEPIME 2 GM in DEXTROSE 5%-WATER - 100 ML IVPB SCH ×3 (01:04→17:43)
[2019-12-17] MEDS: MIDAZOLAM 100 MG in SODIUM CHLORIDE 100 ML IVPB SCH ×3 (01:05→10:37)
[2019-12-17] MEDS: PROPOFOL 1,000,000 MCG/100 ML VIAL IVPB SCH ×5 (01:05→14:57)
[2019-12-17] MEDS: SODIUM CHLORIDE 1,000 ML IV SCH ×2 (04:47→08:00)
[2019-12-17] MEDS: VECURONIUM BROMIDE 100 MG/100 ML BAG IVPB SCH (04:47)
[2019-12-17 06:20] LABS: ARTERIAL BLD GAS O2 SATURATION 95.4 mmHg (95-98); ARTERIAL BLOOD GAS BASE EXCESS -1.9 mmol/L (-2-2); ARTERIAL BLOOD GAS PO2 84.4 mmHg (80-100); ARTERIAL BLOOD GAS pH 7.315 (7.350-7.450)
[2019-12-17] MEDS: INSULIN SLIDING SCALE (NOVOLOG) 1 VIAL SQ SCH ×4 (06:23→21:17)
[2019-12-17 06:24] LABS: ALLENS TEST POSITIVE
[2019-12-17 06:25] LABS: VENT MODE A/C; VENT RATE 20
[2019-12-17 06:26] LABS: HEMATOCRIT 30.2 % (32.4-45.2); HEMOGLOBIN 9.6 GM/dL (10.7-15.3); MCH 26.2 pg (25.7-33.7); MCHC 31.8 g/dl (32.0-36.0); MEAN CELL VOLUME 82.3 fl (80-96); MEAN PLT VOLUME 8.5 fl (7.5-11.1); PLATELET COUNT 251 K/MM3 (134-434); RBC 3.67 M/mm3 (3.60-5.2); RDW 15.2 % (11.6-15.6); WHITE BLOOD COUNT 13.4 K/mm3 (4.0-10.0)
[2019-12-17 06:40] LABS: BLOOD UREA NITROGEN 26.4 mg/dL (7-18); CALCIUM 8.1 mg/dL (8.5-10.1); CREATININE 0.7 mg/dL (0.55-1.3); MAGNESIUM 2.6 mg/dL (1.8-2.4); POTASSIUM 4.5 mmol/L (3.5-5.1)
[2019-12-17] MEDS: ENOXAPARIN NA (PORCINE) 80 MG/0.8 ML DISP.SYRIN SQ SCH ×2 (10:04→21:04)
[2019-12-17] MEDS: MUPIROCIN 2% TOPICAL OINTMENT FOR DECOLONIZATION NS SCH ×2 (10:04→21:04)
[2019-12-17] MEDS: ASCORBIC ACID 500 MG/5 ML UNIT DOSE CUP NGT SCH ×2 (10:06→21:05)
[2019-12-17] MEDS: BUDESONIDE/FORMETEROL FUMARATE 160/4.5 mcg INHALER IH SCH ×2 (10:06→21:04)
[2019-12-17] MEDS: CHOLECALCIFEROL (VIT D SOLUTION) 400 UNIT/1 ML DROPS GT SCH (10:06)
[2019-12-17] MEDS: ZINC SULFATE 220 MG CAPSULE (FP) NGT SCH ×2 (10:07→21:04)
[2019-12-17] MEDS: PANTOPRAZOLE SODIUM 40 MG VIAL IVPUSH SCH (10:07)
[2019-12-17] MEDS: methylPREDNISolone NA SUCC 40 MG/1 ML VIAL IVPUSH SCH ×2 (10:08→21:04)
--- NOTE | 2019-12-17 10:20 | PN ---
Progress Note (short form) - Note Progress Note: Pulm/CCM Pt seen and examined in the ICU. Patient remains intubated and sedated. Received convalescent plasma (12/15). Received off paralysis. Remains on FiO2 100%. O2 sat 92%. Vent: AC/VC; 24/350/100/+7 Plat: 25 ABG Results ABG pH 7.315 (7.350-7.450) L 12/17/19 05:15 ABG HCO3 24.5 mmol/L (22-27) 12/17/19 05:15 ABG O2 Sat (Measured) 95.4 mmHg (95-98) 12/17/19 05:15 ABG O2 Content No Result Required. 12/17/19 05:15 ABG Base Excess -1.9 mmol/L (-2-2) 12/17/19 05:15 Active Medications Acetaminophen (Ofirmev Injection -) 1,000 mg IVPB Q6H PRN PRN Reason: FEVER Stop: 12/17/19 12:15 Albuterol Sulfate (Ventolin Hfa Inhaler -) 2 puff IH Q4H PRN PRN Reason: SHORT OF BREATH/WHEEZING Artificial Tears (Artificial Tears) 1 drop OU TID PRN PRN Reason: Dry eyes Last Admin: 12/15/19 13:59 Dose: 1 drop Documented by: Ascorbic Acid (Vitamin C Oral Solution -) 250 mg NGT BID [facility] Last Admin: 12/17/19 10:06 Dose: 250 mg Documented by: Budesonide/Formoterol Fumarate (Symbicort 160/4.5mcg -) 2 puff IH BID [facility] Last Admin: 12/17/19 10:06 Dose: Not Given Documented by: Chlorhexidine Gluconate (Hibiclens For Decolonization -) 1 applic TP HS [facility] Last Admin: 12/16/19 21:08 Dose: 1 applic Documented by: Cholecalciferol (Vitamin D3 Oral Solution -) 1,000 unit GT DAILY [facility] Last Admin: 12/17/19 10:06 Dose: 1,000 units Documented by: Enoxaparin Sodium (Lovenox -) 80 mg SQ BID [facility] Last Admin: 12/17/19 10:04 Dose: 80 mg Documented by: Propofol (Diprivan -) 1,000,000 mcg in 100 mls @ 2.395 mls/hr IVPB TITR [facility]; Protocol Last Admin: 12/17/19 10:39 Dose: 65 mcg/kg/min, 31.134 mls/hr Documented by: Midazolam HCl 100 mg/ Sodium (Chloride) 100 mls @ 1 mls/hr IVPB TITR [facility]; Protocol Last Admin: 12/17/19 10:37 Dose: 10 mg/hr, 10 mls/hr Documented by: Vecuronium [place] (Vecuronium [place]) 100 mg in 100 mls @ 4.79 mls/hr IVPB TITR [facility] Last Admin: 12/17/19 04:47 Dose: Not Given Documented by: Cefepime HCl 2 gm/ Dextrose 100 mls @ 200 mls/hr IVPB Q8H-IV [facility]; Protocol Last Admin: 12/17/19 10:05 Dose: 200 mls/hr Documented by: Vancomycin HCl (Vancomycin (Pre-Docked)) 1,000 mg in 250 mls @ 166.667 mls/hr IVPB Q12H [facility]; Protocol Last Admin: 12/16/19 22:49 Dose: 166.667 mls/hr Documented by: Sodium Chloride (Normal Saline -) 1,000 mls @ 25 mls/hr IV ASDIR [facility] Last Admin: 12/17/19 08:00 Dose: 25 mls/hr Documented by: Insulin Aspart (Novolog Vial Sliding Scale -) 1 vial SQ ACHS [facility]; Protocol Last Admin: 12/17/19 06:23 Dose: Not Given Documented by: Ipratropium [place] (Atrovent 0.02% Nebulizer -) 1 amp NEB Q6H PRN PRN Reason: DYSPEPSIA Stop: 12/22/19 02:18 Methylprednisolone Sodium Succinate (Solu-Medrol -) 40 mg IVPUSH BID [facility] Last Admin: 12/17/19 10:08 Dose: 40 mg Documented by: Mupirocin (Bactroban Ointment (For Decolonization) -) 1 applic NS BID [facility] Stop: 12/20/19 00:14 Last Admin: 12/17/19 10:04 Dose: 1 applic Documented by: Pantoprazole Sodium (Protonix Iv) 40 mg IVPUSH DAILY [facility] Last Admin: 12/17/19 10:07 Dose: 40 mg Documented by: Zinc Sulfate (Orazinc -) 220 mg NGT BID [facility] Last Admin: 12/17/19 10:07 Dose: 220 mg Documented by: Vital Signs Period Temp Pulse Resp BP Sys/Aguilar Pulse Ox Last 24 Hr 98.4 F-100.6 F 92-114 22-36 111-136/58-76 93-98 Intake & Output 12/14/19 12/15/19 12/16/19 12/17/19 23:59 23:59 23:59 23:59 Intake Total 890 2096 3672 1237.3 Output Total 1850 3050 900 Balance 890 246 622 337.3 GEN: Orally intubated, sedated ENT: Sclera clear LUNGS: Diminished bases; light rales CV: S1S2, tachy RRR ABD: Soft, ND, NT+ bowel sounds, no guarding, no rebound EXT: WWP; no edema NEURO: RASS-4 CBC, BMP 12/17/19 05:00 12/17/19 05:00 Microbiology 12/15/19 06:00 Sputum - Endotrachea Suction/Ventilator Sputum Culture - Preliminary Group D Strep Or Entero Coccus 12/15/19 15:20 Sputum - Endotrachea Suction/Ventilator Sputum Culture - Preliminary Group D Strep Or Entero Coccus 12/15/19 15:20 Urine - Urine - Catheterized Urine Culture - Final NO GROWTH OBTAINED 12/15/19 11:18 Blood - Central Line Blood Culture - Preliminary NO GROWTH OBTAINED AFTER 24 HOURS, INCUBATION TO CONTINUE FOR 4 DAYS. 12/15/19 11:18 Blood - Central Line Blood Culture - Preliminary NO GROWTH OBTAINED AFTER 24 HOURS, INCUBATION TO CONTINUE FOR 4 DAYS. 12/05/19 06:00 Blood - Peripheral Venous Blood Culture - Final NO GROWTH AFTER 5 DAYS INCUBATION 12/05/19 06:15 Blood - Peripheral Venous Blood Culture - Final NO GROWTH AFTER 5 DAYS INCUBATION 12/08/19 22:46 Urine - Urine Clean Catch Legionella Antigen - Final 12/08/19 22:46 Urine - Urine Clean Catch Streptococcus pneumoniae Antigen (M - Final 12/05/19 05:49 Urine - Urine Clean Catch Urine Culture - Final Escherichia Coli 12/05/19 05:49 Urine - Urine Clean Catch Legionella Antigen - Final 12/05/19 05:49 Urine - Urine Clean Catch Streptococcus pneumoniae Antigen (M - Final ASSESSMENT/PLAN: Acute Respiratory Failure due to COVID19 Pneumonitis Capillary Leak Syndrome DM Hyperglycemia HTN Gastroparesis Sepsis -LTVV; PPlat goal<30 -Cont Dexamethasone -Sedation for vent synchrony, will add Fentanyl drip -Diuresis for net even to neg -Full AC -Continue Cefepime -Strict Isolation and usage of Full PPE -S/P Remdesivir x 5 days -F/u Convalescent Plasma treatment -ID following -If cultures are negative will give Actemra -Vit C; Vitamin D; Zinc -Strict I & O -Replete electrolytes, keep Mg>2, K>4 -Transfuse for Hgb<7, Plt<10 -Continue TF Kiesha Rios, ACNP [id number]
[2019-12-17] MEDS: FENTANYL IVPB 500 MCG/100 ML BAG IVPB SCH ×2 (11:56→15:36)
--- NOTE | 2019-12-17 12:18 | PN ---
Progress Note (short form) - Note Progress Note: intubated and sedated remains on 100% fiO2 Vital Signs Period Temp Pulse Resp BP Sys/Aguilar Pulse Ox Last 24 Hr 98.4 F-100 F 92-111 22-34 111-135/58-73 90-98 cor-rrr lungs decreased bs at bases abd soft,nt ext no edema arevalo r CBC, BMP 12/17/19 05:00 12/17/19 05:00 Microbiology 12/15/19 15:20 Sputum - Endotrachea Suction/Ventilator Gram Stain - Final 12/15/19 15:20 Sputum - Endotrachea Suction/Ventilator Sputum Culture - Preliminary Group D Strep Or Entero Coccus 12/15/19 06:00 Sputum - Endotrachea Suction/Ventilator Gram Stain - Final 12/15/19 06:00 Sputum - Endotrachea Suction/Ventilator Sputum Culture - Preliminary Group D Strep Or Entero Coccus 12/15/19 11:18 Blood - Central Line Blood Culture - Preliminary NO GROWTH OBTAINED AFTER 48 HOURS, INCUBATION TO CONTINUE FOR 3 DAYS. 12/15/19 11:18 Blood - Central Line Blood Culture - Preliminary NO GROWTH OBTAINED AFTER 48 HOURS, INCUBATION TO CONTINUE FOR 3 DAYS. 12/15/19 15:20 Urine - Urine - Catheterized Urine Culture - Final NO GROWTH OBTAINED 12/05/19 06:00 Blood - Peripheral Venous Blood Culture - Final NO GROWTH AFTER 5 DAYS INCUBATION 12/05/19 06:15 Blood - Peripheral Venous Blood Culture - Final NO GROWTH AFTER 5 DAYS INCUBATION 12/08/19 22:46 Urine - Urine Clean Catch Legionella Antigen - Final 12/08/19 22:46 Urine - Urine Clean Catch Streptococcus pneumoniae Antigen (M - Final 12/05/19 05:49 Urine - Urine Clean Catch Urine Culture - Final Escherichia Coli 12/05/19 05:49 Urine - Urine Clean Catch Legionella Antigen - Final 12/05/19 05:49 Urine - Urine Clean Catch Streptococcus pneumoniae Antigen (M - Final Laboratory Tests 12/16/19 12/17/19 05:30 05:00 Ferritin 235.6 AST 28 ALT 63 H Alkaline Phosphatase 139 H LD Total 267 H C-Reactive Protein 7.6 H vanco trough 13.8 Active Medications Albuterol Sulfate (Ventolin Hfa Inhaler -) 2 puff IH Q4H PRN PRN Reason: SHORT OF BREATH/WHEEZING Artificial Tears (Artificial Tears) 1 drop OU TID PRN PRN Reason: Dry eyes Last Admin: 12/15/19 13:59 Dose: 1 drop Documented by: Ascorbic Acid (Vitamin C Oral Solution -) 250 mg NGT BID [facility] Last Admin: 12/16/19 09:08 Dose: 250 mg Documented by: Budesonide/Formoterol Fumarate (Symbicort 160/4.5mcg -) 2 puff IH BID [facility] Last Admin: 12/16/19 09:09 Dose: Not Given Documented by: Chlorhexidine Gluconate (Hibiclens For Decolonization -) 1 applic TP HS [facility] Last Admin: 12/15/19 21:01 Dose: 1 applic Documented by: Cholecalciferol (Vitamin D3 Oral Solution -) 1,000 unit GT DAILY [facility] Last Admin: 12/16/19 09:08 Dose: 1,000 units Documented by: Enoxaparin Sodium (Lovenox -) 80 mg SQ BID [facility] Last Admin: 12/16/19 09:07 Dose: 80 mg Documented by: Sodium Chloride (Normal Saline -) 1,000 mls @ 100 mls/hr IV ASDIR [facility] Last Admin: 12/16/19 05:00 Dose: 100 mls/hr Documented by: Propofol (Diprivan -) 1,000,000 mcg in 100 mls @ 2.395 mls/hr IVPB TITR [facility]; Protocol Last Admin: 12/16/19 05:00 Dose: 50 mcg/kg/min, 23.95 mls/hr Documented by: Midazolam HCl 100 mg/ Sodium (Chloride) 100 mls @ 1 mls/hr IVPB TITR [facility]; Protocol Last Admin: 12/16/19 04:00 Dose: 6 mg/hr, 6 mls/hr Documented by: Vecuronium Squire (Vecuronium Squire) 100 mg in 100 mls @ 4.79 mls/hr IVPB TITR [facility] Last Admin: 12/16/19 06:41 Dose: Not Given Documented by: Cefepime HCl 2 gm/ Dextrose 100 mls @ 200 mls/hr IVPB Q8H-IV [facility]O; Protocol Last Admin: 12/16/19 09:06 Dose: 200 mls/hr Documented by: Vancomycin HCl 1,000 mg/ (Dextrose) 250 mls @ 166.667 mls/hr IVPB Q12H [facility]; Protocol Insulin Aspart (Novolog Vial Sliding Scale -) 1 vial SQ ACHS [facility]O; Protocol Last Admin: 12/16/19 06:42 Dose: Not Given Documented by: Insulin Detemir (Levemir Vial) 40 units SQ BID@0700,2200 [facility] Last Admin: 12/16/19 06:41 Dose: 40 units Documented by: Ipratropium Squire (Atrovent 0.02% Nebulizer -) 1 amp NEB Q6H PRN PRN Reason: DYSPEPSIA Stop: 12/22/19 02:18 Methylprednisolone Sodium Succinate (Solu-Medrol -) 40 mg IVPUSH BID [facility] Last Admin: 12/16/19 09:07 Dose: 40 mg Documented by: Mupirocin (Bactroban Ointment (For Decolonization) -) 1 applic NS BID [facility] Stop: 12/20/19 00:14 Last Admin: 12/16/19 09:09 Dose: 1 applic Documented by: Pantoprazole Sodium (Protonix Iv) 40 mg IVPUSH DAILY [facility] Last Admin: 12/16/19 09:06 Dose: 40 mg Documented by: Zinc Sulfate (Orazinc -) 220 mg NGT BID [facility] Last Admin: 12/16/19 09:07 Dose: 220 mg Documented by: a/p COVID-19 pneumonia- s/p convalescent plasma last night, s/p 5 days remdesvir- RESP FAILURE- intubated 12/14- continue vanco/cefepime, f/u cultures Diabetes elevated lfts- improved Pen allergy follow inflammatory markers-improved today f/u cultures vent management per ICU team
[2019-12-17] MEDS: VANCOMYCIN 1 GRAM (PRE-DOCKED) 1,000 MG/250 ML BAG IVPB SCH ×2 (13:13→22:55)
[2019-12-17] MEDS: CHLORHEXIDINE GLUCONATE 4% CLEANSER FOR DECOLONIZATION TP SCH (21:04)
[2019-12-18] MEDS ORDERED: PT OWN MED DRAWER 7, Y5N ONE ×3 (01:12→16:49)
[2019-12-18] MEDS: CEFEPIME 2 GM in DEXTROSE 5%-WATER - 100 ML IVPB SCH ×2 (01:15→10:52)
[2019-12-18] MEDS: PROPOFOL 1,000,000 MCG/100 ML VIAL IVPB SCH ×2 (01:16→06:12)
[2019-12-18] MEDS: FENTANYL IVPB 500 MCG/100 ML BAG IVPB SCH ×3 (01:17→16:03)
[2019-12-18] MEDS ORDERED: fentaNYL CITRATE 250 MCG/5 ML VIAL ONE (04:17)
[2019-12-18] MEDS ORDERED: MIDAZOLAM IN 0.9 % SOD.CHLORID 1 MG/1 ML PLAST..BAG ONE ×2 (05:47→16:17)
[2019-12-18 06:03] LABS: ARTERIAL BLD GAS O2 SATURATION 97.1 mmHg (95-98); ARTERIAL BLOOD GAS BASE EXCESS -3.8 mmol/L (-2-2); ARTERIAL BLOOD GAS PO2 117.7 mmHg (80-100)
[2019-12-18] MEDS: MIDAZOLAM 100 MG in SODIUM CHLORIDE 100 ML IVPB SCH (06:12)
[2019-12-18] MEDS: VECURONIUM BROMIDE 100 MG/100 ML BAG IVPB SCH (06:12)
[2019-12-18] MEDS: INSULIN SLIDING SCALE (NOVOLOG) 1 VIAL SQ SCH ×4 (06:13→22:14)
[2019-12-18 06:17] LABS: ALLENS TEST POSITIVE; ARTERIAL BLOOD GAS pH 7.176 (7.350-7.450); VENT MODE A/C
[2019-12-18 06:18] LABS: VENT RATE 24
[2019-12-18] MEDS ORDERED: ACETAMINOPHEN 1000 MG/100 ML VIAL (NON FORMULARY) IVPB PRN (06:40)
--- NOTE | 2019-12-18 07:35 | PN ---
Physical Exam: SUBJECTIVE: Patient seen and examined. Remains intubated and sedated. Over the weekend, received plasma, completed remdesevir. On cefepime (day 4), vancomycin (day 3). ABG pH 7.176, Co2 70.3. As per [employer], when pt is turned R side up, her saturation improves to 99%. OBJECTIVE: Vital Signs Period Temp Pulse Resp BP Sys/Aguilar Pulse Ox Last 24 Hr 98.9 F-100.4 F 103-129 21-34 104-140/56-74 90-100 Physical exam as per Dr. Otoole, due to limited PPE. GENERAL: Intubated and sedated. HEENT: NCAT, ETT in place. CARDIAC: Tacychardic. Regular rate and rhythm, S1, S2 present, no murmurs. RESPIRATORY: b/l rhonchi EXTREMITIES: warm, well-perfused, no edema. Laboratory Last Values WBC 13.3 K/mm3 (4.0-10.0) H 12/18/19 05:30 RBC 3.42 M/mm3 (3.60-5.2) L 12/18/19 05:30 Hgb 9.0 GM/dL (10.7-15.3) L 12/18/19 05:30 Hct 28.4 % (32.4-45.2) L 12/18/19 05:30 MCV 83.2 fl (80-96) 12/18/19 05:30 MCH 26.3 pg (25.7-33.7) 12/18/19 05:30 MCHC 31.6 g/dl (32.0-36.0) L 12/18/19 05:30 RDW 14.6 % (11.6-15.6) 12/18/19 05:30 Plt Count 226 K/MM3 (134-434) 12/18/19 05:30 MPV 8.6 fl (7.5-11.1) 12/18/19 05:30 Absolute Neuts (auto) 12.3 K/mm3 (1.5-8.0) H 12/18/19 05:30 Total Counted 100 12/15/19 02:03 Neutrophils % 92.3 % (42.8-82.8) H 12/18/19 05:30 Neutrophils % (Manual) 91.0 % (42.8-82.8) H 12/18/19 05:30 Band Neutrophils % 0.0 % 12/18/19 05:30 Lymphocytes % 2.5 % (8-40) L D 12/18/19 05:30 Lymphocytes % (Manual) 5.0 % (8-40) L D 12/18/19 05:30 Monocytes % 5.0 % (3.8-10.2) 12/18/19 05:30 Monocytes % (Manual) 3 % (3.8-10.2) L 12/18/19 05:30 Eosinophils % 0.0 % (0-4.5) 12/18/19 05:30 Eosinophils % (Manual) 0.0 % (0-4.5) 12/18/19 05:30 Basophils % 0.2 % (0-2.0) 12/18/19 05:30 Basophils % (Manual) 0.0 % (0-2.0) 12/18/19 05:30 Myelocytes % (Man) 0 % (0-2) D 12/18/19 05:30 Promyelocytes % (Man) 0 % (0-2) 12/18/19 05:30 Blast Cells % (Manual) 0 % (0-0) 12/18/19 05:30 Nucleated RBC % 0 % (0-0) 12/18/19 05:30 Metamyelocytes 0 % (0-2) 12/18/19 05:30 Hypochromia 0 12/18/19 05:30 Platelet Estimate Normal 12/18/19 05:30 Platelet Comment No clotting detected 12/15/19 02:03 Platelet Comment No clumping noted 12/15/19 02:03 Polychromasia 0 12/18/19 05:30 Poikilocytosis 0 12/18/19 05:30 Anisocytosis 0 12/18/19 05:30 Microcytosis 0 12/18/19 05:30 Macrocytosis 0 12/18/19 05:30 ESR 101 mm/hr (0-20) H 12/09/19 07:51 PT with INR 10.80 SEC (9.7-13.0) 12/05/19 06:15 INR 0.92 (0.83-1.09) 12/05/19 06:15 PTT (Actin FS) 29.2 SECONDS (25.2-36.5) 12/05/19 06:15 D-Dimer 1350 ng/ml (0-500) H 12/18/19 05:30 Anticoagulation Therapy No Result Required. 12/18/19 09:25 Puncture Site Right radial 12/18/19 09:25 Patient Temperature No Result Required. 12/18/19 09:25 ABG pH 7.207 (7.350-7.450) L 12/18/19 09:25 ABG pCO2 63.00 mmHg (35-45) H 12/18/19 09:25 ABG pO2 107.7 mmHg (80-100) H 12/18/19 09:25 ABG HCO3 24.5 mmol/L (22-27) 12/18/19 09:25 ABG O2 Sat (Measured) 96.7 mmHg (95-98) 12/18/19 09:25 ABG O2 Content No Result Required. 12/18/19 09:25 ABG Base Excess -3.9 mmol/L (-2-2) L 12/18/19 09:25 John Paul Test Positive 12/18/19 09:25 Patient On Oxygen Yes 12/18/19 09:25 O2 Delivery Device V 12/18/19 09:25 Oxygen Flow Rate 80 12/18/19 09:25 Vent Mode 12/18/19 09:25 Vent Rate 28 12/18/19 09:25 Mechanical Rate Ac 12/18/19 09:25 PEEP 9.0 cmH2O 12/18/19 09:25 Pressure Support Vent 350 12/18/19 09:25 Sodium 136 mmol/L (136-145) 12/18/19 05:30 Potassium 5.4 mmol/L (3.5-5.1) H 12/18/19 05:30 Chloride 105 mmol/L (98-107) 12/18/19 05:30 Carbon Dioxide 26 mmol/L (21-32) 12/18/19 05:30 Anion Gap 5 MMOL/L (8-16) L 12/18/19 05:30 BUN 35.6 mg/dL (7-18) H 12/18/19 05:30 Creatinine 1.3 mg/dL (0.55-1.3) 12/18/19 05:30 Est GFR (CKD-EPI)AfAm 56.18 12/18/19 05:30 Est GFR (CKD-EPI)NonAf 48.47 12/18/19 05:30 POC Glucometer 257 UNITS (80-120) 12/18/19 11:12 Random Glucose 381 mg/dL (74-106) H 12/18/19 05:30 Hemoglobin A1c % < 3.5 % (4.2-6.3) L 12/05/19 12:01 Lactic Acid 0.9 mmol/L (0.4-2.0) 12/05/19 15:14 Calcium 8.0 mg/dL (8.5-10.1) L 12/18/19 05:30 Phosphorus 4.3 mg/dL (2.5-4.9) 12/18/19 05:30 Magnesium 2.8 mg/dL (1.8-2.4) H 12/18/19 05:30 Ferritin 249.3 ng/ml (8-388) 12/18/19 05:30 Total Bilirubin 0.2 mg/dL (0.2-1) 12/18/19 05:30 Direct Bilirubin 0.1 mg/dL (0.0-0.2) 12/16/19 05:30 AST 16 U/L (15-37) 12/18/19 05:30 ALT 43 U/L (13-61) 12/18/19 05:30 Alkaline Phosphatase 161 U/L (45-117) H 12/18/19 05:30 LD Total 317 U/L (84-246) H 12/18/19 05:30 Troponin I < 0.02 ng/ml (0.00-0.05) 12/05/19 06:15 C-Reactive Protein 11.9 MG/DL (0.00-0.3) H 12/18/19 05:30 B-Natriuretic Peptide 624.4 pg/ml (5-125) H 12/15/19 11:18 Total Protein 5.4 g/dl (6.4-8.2) L 12/18/19 05:30 Albumin 1.4 g/dl (3.4-5.0) L 12/18/19 05:30 Beta-Hydroxybutyrate 29.7 mg/dL (0.2-2.8) H 12/05/19 12:01 Beta HCG, Quant Cancelled 12/05/19 06:15 Serum , Qual Negative 12/05/19 08:00 Urine Color Yellow 12/05/19 05:49 Urine Appearance Cloudy 12/05/19 05:49 Urine pH 5.0 (5.0-8.0) 12/05/19 05:49 Ur Specific [place] 1.029 (1.010-1.035) 12/05/19 05:49 Urine Protein 3+ (NEGATIVE) H 12/05/19 05:49 Urine Glucose (UA) 3+ (NEGATIVE) H 12/05/19 05:49 Urine Ketones 1+ (NEGATIVE) H 12/05/19 05:49 Urine Blood 1+ (NEGATIVE) H 12/05/19 05:49 Urine Nitrite Negative (NEGATIVE) 12/05/19 05:49 Urine Bilirubin Negative (NEGATIVE) 12/05/19 05:49 Urine Urobilinogen 0.2 mg/dL (0.2-1.0) 12/05/19 05:49 Ur Leukocyte Esterase Trace (NEGATIVE) 12/05/19 05:49 Urine WBC (Auto) 598 /uL (0-25.8) 12/05/19 05:49 Urine RBC (Auto) 13 /uL (0-23.9) 12/05/19 05:49 Urine Casts (Auto) 27 /uL (0-3.1) 12/05/19 05:49 U Epithel Cells (Auto) >36 /uL (0-25.1) 12/05/19 05:49 Urine Bacteria (Auto) >10,000 /uL (0-1359) 12/05/19 05:49 Vancomycin Pre-Dose 13.8 ug/ml (5-10) H 12/17/19 10:50 COVID-19 (BULMARO) Detected (Not Detected) H 12/05/19 06:15 Hep A IgM Ab Confirm Negative (Negative) 12/05/19 19:15 Hep Bs Antigen Negative (Negative) 12/05/19 19:15 Hep B Core IgM Ab Negative (Negative) 12/05/19 19:15 Hepatitis C Ab (EIA) <0.1 s/co ratio (0.0-0.9) 12/05/19 19:15 SARS-CoV-2 Ab Interp Non-reactive (NONREACTIVE) 12/05/19 11:05 Blood Type O POSITIVE 12/14/19 18:35 Antibody Screen Negative 12/14/19 18:35 Active Medications Acetaminophen (Ofirmev Injection -) 1,000 mg IVPB Q8H PRN PRN Reason: FEVER Stop: 12/19/19 06:41 Albuterol Sulfate (Ventolin Hfa Inhaler -) 2 puff IH Q4H PRN PRN Reason: SHORT OF BREATH/WHEEZING Artificial Tears (Artificial Tears) 1 drop OU TID PRN PRN Reason: Dry eyes Last Admin: 12/15/19 13:59 Dose: 1 drop Documented by: Ascorbic Acid (Vitamin C Oral Solution -) 250 mg NGT BID ROCÍO Last Admin: 12/17/19 21:05 Dose: 250 mg Documented by: Budesonide/Formoterol Fumarate (Symbicort 160/4.5mcg -) 2 puff IH BID ROCÍO Last Admin: 12/17/19 21:04 Dose: Not Given Documented by: Chlorhexidine Gluconate (Hibiclens For Decolonization -) 1 applic TP HS ROCÍO Last Admin: 12/17/19 21:04 Dose: 1 applic Documented by: Cholecalciferol (Vitamin D3 Oral Solution -) 1,000 unit GT DAILY ROCÍO Last Admin: 12/17/19 10:06 Dose: 1,000 units Documented by: Enoxaparin Sodium (Lovenox -) 80 mg SQ BID ROCÍO Last Admin: 12/17/19 21:04 Dose: 80 mg Documented by: Propofol (Diprivan -) 1,000,000 mcg in 100 mls @ 2.395 mls/hr IVPB TITR [facility]; Protocol Last Admin: 12/18/19 06:12 Dose: 65 mcg/kg/min, 31.134 mls/hr Documented by: Midazolam HCl 100 mg/ Sodium (Chloride) 100 mls @ 1 mls/hr IVPB TITR [facility]; Protocol Last Admin: 12/18/19 06:12 Dose: 10 mg/hr, 10 mls/hr Documented by: Vecuronium Mcintosh (Vecuronium Mcintosh) 100 mg in 100 mls @ 4.79 mls/hr IVPB TITR ROCÍO Last Admin: 12/18/19 06:12 Dose: Not Given Documented by: Cefepime HCl 2 gm/ Dextrose 100 mls @ 200 mls/hr IVPB Q8H-IV ROC[facility]O; Protocol Last Admin: 12/18/19 01:15 Dose: 200 mls/hr Documented by: Vancomycin HCl (Vancomycin (Pre-Docked)) 1,000 mg in 250 mls @ 166.667 mls/hr IVPB Q12H [facility]; Protocol Last Admin: 12/17/19 22:55 Dose: 166.667 mls/hr Documented by: Sodium Chloride (Normal Saline -) 1,000 mls @ 25 mls/hr IV ASDIR [facility] Last Admin: 12/17/19 08:00 Dose: 25 mls/hr Documented by: Fentanyl (Sublimaze Ivpb) 500 mcg in 100 mls @ 15.966 mls/hr IVPB TITR [facility]; Protocol Last Admin: 12/18/19 04:30 Dose: 1.88 mcg/kg/hr, 30 mls/hr Documented by: Insulin Aspart (Novolog Vial Sliding Scale -) 1 vial SQ ACHS [facility]; Protocol Last Admin: 12/18/19 06:13 Dose: 10 units Documented by: Ipratropium Mcintosh (Atrovent 0.02% Nebulizer -) 1 amp NEB Q6H PRN PRN Reason: DYSPEPSIA Stop: 12/22/19 02:18 Methylprednisolone Sodium Succinate (Solu-Medrol -) 40 mg IVPUSH BID [facility] Last Admin: 12/17/19 21:04 Dose: 40 mg Documented by: Mupirocin (Bactroban Ointment (For Decolonization) -) 1 applic NS BID [facility] Stop: 12/20/19 00:14 Last Admin: 12/17/19 21:04 Dose: 1 applic Documented by: Pantoprazole Sodium (Protonix Iv) 40 mg IVPUSH DAILY [facility] Last Admin: 12/17/19 10:07 Dose: 40 mg Documented by: Zinc Sulfate (Orazinc -) 220 mg NGT BID [facility] Last Admin: 12/17/19 21:04 Dose: 220 mg Documented by: ASSESSMENT/PLAN: 49 yo Female with PMH DM, HTN, gastroparesis presented to ED with shortness of breath and is admitted to ICU for COVID pneumonitis. Pt was desaturating ~80% on NRB and tachypneic RR 40 and using accessory muscles. Pt was placed on HFOT, but further desaturated SpO2 ~70%. Pt was not able to sustain SpO2 greater than 88% and thus, decision made to intubate. Pt had rising WBC. Pt completed remdesevir regimen, received C-plasma, and is currently on Cefepime and vancomycin. ABG showed respiratory acidosis. Neuro - Sedated on propofol, midazolam, fentanyl - c/w vecuronium for paralysis. Cardio h/o HTN - No home meds for HTN. - Monitor and maintain MAP>65 - Hb 9.0, repeat CBC Hb 8.9. Stable. Transfuse if Hb<7. Pulmonary COVID pneumonitis - c/w albuterol, ipratropium bromide, methylprednisolone 40 BID - c/w Lovenox 80 BID - Vent: AC/VC 28/350/80%/9, maintain PPlat <30. Today Pplat 28. - CXR showed b/l congestive and infiltrative changes - ABG this morning showed respiratory acidosis. Repeat ABG done after incre asing RR of vent showed improvement, however, still respiratory acidosis. - monitor inflammatory markers GI h/o gastroparesis -Last BM 12/13 -consider Reglan Endo h/o DM - ISS + BGM Renal -Diuresis for net negative ID COVID pneumonitis - c/w Ofirmev PRN for fevers - c/w Vitamin C, D, Zinc - ID consulted. Recommended c/w cefepime (day 4), vancomycin (day 3). - c/w trending inflammatory markers. Improving. - Bcx negative thus far. Ucx negative. Sputum culture grew Group D Strep/Enterococcus and yeast-like organism. - Completed 5 days Remdesevir. Received c-plasma. Completed rocephin/azithromycin. - Consider tocilizumab PPX - DVT: Lovenox 80 BID - GI : PPI 40 IV qD FEN - NS @25 - Monitor and replete electrolytes as needed - Start feeds, as per manager architecture. LTD - RIJ 12/14 - ETT 12/14 - Milagros Dispo: Continue to monitor in the ICU. Visit type - Emergency Visit Emergency Visit: Yes ED Registration Date: 12/05/19 Care time: The patient presented to the Emergency Department on the above date and was hospitalized for further evaluation of their emergent condition. - New Patient This patient is new to me today: No - Critical Care Critical Care patient: Yes Total Critical Care Time (in minutes): 38 Critical Care Statement: The care of this patient involved high complexity decision making to prevent further life threatening deterioration of the patient's condition and/or to evaluate & treat vital organ system(s) failure or risk of failure. ATTENDING PHYSICIAN STATEMENT I saw and evaluated the patient. I reviewed the resident's note and discussed the case with the resident. I agree with the resident's findings and plan as documented. SUBJECTIVE: OBJECTIVE: ASSESSMENT AND PLAN:
[2019-12-18] MEDS: SODIUM CHLORIDE 1,000 ML IV SCH (07:37)
[2019-12-18 07:39] LABS: BASO % 0.2 % (0-2.0); HEMATOCRIT 28.4 % (32.4-45.2); LYMPH % 2.5 % (8-40); MCH 26.3 pg (25.7-33.7); MCHC 31.6 g/dl (32.0-36.0); MEAN CELL VOLUME 83.2 fl (80-96); MEAN PLT VOLUME 8.6 fl (7.5-11.1); NEUT % 92.3 % (42.8-82.8); PLATELET COUNT 226 K/MM3 (134-434); RBC 3.42 M/mm3 (3.60-5.2); RDW 14.6 % (11.6-15.6); WHITE BLOOD COUNT 13.3 K/mm3 (4.0-10.0)
[2019-12-18 07:44] LABS: ALBUMIN 1.4 g/dl (3.4-5.0); BILIRUBIN,TOTAL 0.2 mg/dL (0.2-1); BLOOD UREA NITROGEN 35.6 mg/dL (7-18); CREATININE 1.3 mg/dL (0.55-1.3); MAGNESIUM 2.8 mg/dL (1.8-2.4); PHOSPHOROUS 4.3 mg/dL (2.5-4.9); POTASSIUM 5.4 mmol/L (3.5-5.1); TOT PROT 5.4 g/dl (6.4-8.2)
[2019-12-18] MEDS ORDERED: FENTANYL NS IVPB 500 MCG/100 ML BAG IVPB ONE ×3 (08:17→18:23)
[2019-12-18 09:20] LABS: ANISOCYTOSIS 0; MACROCYTOSIS 0; PLATELET ESTIMATE NORMAL
[2019-12-18 09:45] LABS: ARTERIAL BLD GAS O2 SATURATION 96.7 mmHg (95-98); ARTERIAL BLOOD GAS BASE EXCESS -3.9 mmol/L (-2-2); ARTERIAL BLOOD GAS PO2 107.7 mmHg (80-100); ARTERIAL BLOOD GAS pH 7.207 (7.350-7.450)
[2019-12-18 09:47] LABS: ALLENS TEST POSITIVE
[2019-12-18 09:49] LABS: VENT RATE 28
[2019-12-18] MEDS: CHOLECALCIFEROL (VIT D SOLUTION) 400 UNIT/1 ML DROPS GT SCH (10:49)
[2019-12-18] MEDS: ENOXAPARIN NA (PORCINE) 80 MG/0.8 ML DISP.SYRIN SQ SCH ×2 (10:49→22:15)
[2019-12-18] MEDS: ASCORBIC ACID 500 MG/5 ML UNIT DOSE CUP NGT SCH ×2 (10:50→22:16)
[2019-12-18] MEDS: PANTOPRAZOLE SODIUM 40 MG VIAL IVPUSH SCH (10:50)
[2019-12-18] MEDS: methylPREDNISolone NA SUCC 40 MG/1 ML VIAL IVPUSH SCH ×2 (10:51→22:16)
[2019-12-18] MEDS: MUPIROCIN 2% TOPICAL OINTMENT FOR DECOLONIZATION NS SCH ×2 (11:03→22:15)
[2019-12-18] MEDS: BUDESONIDE/FORMETEROL FUMARATE 160/4.5 mcg INHALER IH SCH (11:03)
[2019-12-18] MEDS: ZINC SULFATE 220 MG CAPSULE (FP) NGT SCH ×2 (11:04→22:16)
[2019-12-18] MEDS: VANCOMYCIN 1 GRAM (PRE-DOCKED) 1,000 MG/250 ML BAG IVPB SCH (11:58)
--- NOTE | 2019-12-18 13:35 | PN ---
Teaching Attending Note Name of Resident: Sandi Jaimes ATTENDING PHYSICIAN STATEMENT I saw and evaluated the patient. I reviewed the resident's note and discussed the case with the resident. I agree with the resident's findings and plan as documented. SUBJECTIVE: Patient seen and examined in the ICU. intubated and sedated. AC mode of vent, 80% FiO2. No pressors. PPlat : 28 Intake & Output 12/15/19 12/16/19 12/17/19 12/18/19 23:59 23:59 23:59 23:59 Intake Total 2096 3672 2837.3 2046.6 Output Total 1850 3050 2000 1000 Balance 246 622 837.3 1046.6 Last Vital Signs Temp Pulse Resp BP Pulse Ox 98.1 F 88 28 H 100/60 93 L 12/18/19 12:00 12/18/19 12:59 12/18/19 12:59 12/18/19 12:59 12/18/19 12:59 Active Medications Acetaminophen (Ofirmev Injection -) 1,000 mg IVPB Q8H PRN PRN Reason: FEVER Stop: 12/19/19 06:41 Albuterol Sulfate (Ventolin Hfa Inhaler -) 2 puff IH Q4H PRN PRN Reason: SHORT OF BREATH/WHEEZING Amino Acids (Prosource No Carb Liquid Pkt) 30 ml PO BID@0800,1730 [facility] Artificial Tears (Artificial Tears) 1 drop OU TID PRN PRN Reason: Dry eyes Last Admin: 12/15/19 13:59 Dose: 1 drop Documented by: Ascorbic Acid (Vitamin C Oral Solution -) 250 mg NGT BID [facility] Last Admin: 12/18/19 10:50 Dose: 250 mg Documented by: Budesonide/Formoterol Fumarate (Symbicort 160/4.5mcg -) 2 puff IH BID [facility] Last Admin: 12/18/19 11:03 Dose: Not Given Documented by: Chlorhexidine Gluconate (Hibiclens For Decolonization -) 1 applic TP HS [facility] Last Admin: 12/17/19 21:04 Dose: 1 applic Documented by: Cholecalciferol (Vitamin D3 Oral Solution -) 1,000 unit GT DAILY [facility] Last Admin: 12/18/19 10:49 Dose: 1,000 units Documented by: Enoxaparin Sodium (Lovenox -) 80 mg SQ BID [facility] Last Admin: 12/18/19 10:49 Dose: 80 mg Documented by: Propofol (Diprivan -) 1,000,000 mcg in 100 mls @ 2.395 mls/hr IVPB TITR [facility]; Protocol Last Titration: 12/18/19 12:04 Dose: 55 mcg/kg/min, 26.345 mls/hr Documented by: Midazolam HCl 100 mg/ Sodium (Chloride) 100 mls @ 1 mls/hr IVPB TITR [facility]; Protocol Last Admin: 12/18/19 06:12 Dose: 10 mg/hr, 10 mls/hr Documented by: Vecuronium [place]ston (Vecuronium [place]ston) 100 mg in 100 mls @ 4.79 mls/hr IVPB TITR ROCÍO Last Admin: 12/18/19 06:12 Dose: Not Given Documented by: Sodium Chloride (Normal Saline -) 1,000 mls @ 25 mls/hr IV ASDIR ROCÍO Last Admin: 12/18/19 07:37 Dose: 25 mls/hr Documented by: Fentanyl (Sublimaze Ivpb) 500 mcg in 100 mls @ 15.966 mls/hr IVPB TITR [facility]; Protocol Last Titration: 12/18/19 12:04 Dose: 1.25 mcg/kg/hr, 20 mls/hr Documented by: Cefepime HCl 2 gm/ Sodium (Chloride) 100 mls @ 200 mls/hr IVPB Q8H-IV [facility]; Protocol Vancomycin HCl 1,000 mg/ (Sodium Chloride) 250 mls @ 166.667 mls/hr IVPB Q12H [facility]; Protocol Insulin Aspart (Novolog Vial Sliding Scale -) 1 vial SQ ACHS [facility]; Protocol Last Admin: 12/18/19 11:10 Dose: 6 units Documented by: Ipratropium [place] (Atrovent 0.02% Nebulizer -) 1 amp NEB Q6H PRN PRN Reason: DYSPEPSIA Stop: 12/22/19 02:18 Methylprednisolone Sodium Succinate (Solu-Medrol -) 40 mg IVPUSH BID [facility] Last Admin: 12/18/19 10:51 Dose: 40 mg Documented by: Mupirocin (Bactroban Ointment (For Decolonization) -) 1 applic NS BID [facility] Stop: 12/20/19 00:14 Last Admin: 12/18/19 11:03 Dose: 1 applic Documented by: Nystatin (Mycostatin Cream -) 1 applic TP BID [facility] Pantoprazole Sodium (Protonix Iv) 40 mg IVPUSH DAILY [facility] Last Admin: 12/18/19 10:50 Dose: 40 mg Documented by: Zinc Sulfate (Orazinc -) 220 mg NGT BID [facility] Last Admin: 12/18/19 11:04 Dose: Not Given Documented by: GEN: intubated, sedated ENT: Sclera clear LUNGS: Vented, bilateral coarse rhonchi CV: S1S2, tachy RRR ABD: Soft, ND, NT+ bowel sounds, no guarding, no rebound EXT: WWP; no edema NEURO: Sedated Laboratory Results - last 24 hr 12/17/19 12/17/19 12/17/19 17:50 18:42 21:15 WBC RBC Hgb Hct MCV MCH MCHC RDW Plt Count MPV Absolute Neuts (auto) Neutrophils % Neutrophils % (Manual) Band Neutrophils % Lymphocytes % Lymphocytes % (Manual) Monocytes % Monocytes % (Manual) Eosinophils % Eosinophils % (Manual) Basophils % Basophils % (Manual) Myelocytes % (Man) Promyelocytes % (Man) Blast Cells % (Manual) Nucleated RBC % Metamyelocytes Hypochromia Platelet Estimate Polychromasia Poikilocytosis Anisocytosis Microcytosis Macrocytosis D-Dimer Anticoagulation Therapy Puncture Site Patient Temperature ABG pH ABG pCO2 ABG pO2 ABG HCO3 ABG O2 Sat (Measured) ABG O2 Content ABG Base Excess [place] Test Patient On Oxygen O2 Delivery Device Oxygen Flow Rate Vent Mode Vent Rate Mechanical Rate PEEP Pressure Support Vent Sodium Potassium Chloride Carbon Dioxide Anion Gap BUN Creatinine Est GFR (CKD-EPI)AfAm Est GFR (CKD-EPI)NonAf POC Glucometer 363 386 369 Random Glucose Calcium Phosphorus Magnesium Ferritin Total Bilirubin AST ALT Alkaline Phosphatase LD Total C-Reactive Protein Total Protein Albumin 12/18/19 12/18/19 12/18/19 05:30 05:30 05:30 WBC 13.3 H RBC 3.42 L Hgb 9.0 L Hct 28.4 L MCV 83.2 MCH 26.3 MCHC 31.6 L RDW 14.6 Plt Count 226 MPV 8.6 Absolute Neuts (auto) 12.3 H Neutrophils % 92.3 H Neutrophils % (Manual) 91.0 H Band Neutrophils % 0.0 Lymphocytes % 2.5 L D Lymphocytes % (Manual) 5.0 L D Monocytes % 5.0 Monocytes % (Manual) 3 L Eosinophils % 0.0 Eosinophils % (Manual) 0.0 Basophils % 0.2 Basophils % (Manual) 0.0 Myelocytes % (Man) 0 D Promyelocytes % (Man) 0 Blast Cells % (Manual) 0 Nucleated RBC % 0 Metamyelocytes 0 Hypochromia 0 Platelet Estimate Normal Polychromasia 0 Poikilocytosis 0 Anisocytosis 0 Microcytosis 0 Macrocytosis 0 D-Dimer Anticoagulation Therapy No Result Required. Puncture Site Right radial Patient Temperature No Result Required. ABG pH 7.176 L* ABG pCO2 70.30 H* ABG pO2 117.7 H ABG HCO3 25.4 ABG O2 Sat (Measured) 97.1 ABG O2 Content No Result Required. ABG Base Excess -3.8 L [place] Test Positive Patient On Oxygen Yes O2 Delivery Device Vent Oxygen Flow Rate 100% Vent Mode A/c Vent Rate 24 Mechanical Rate Vent PEEP 9.0 Pressure Support Vent 350 Sodium 136 Potassium 5.4 H Chloride 105 Carbon Dioxide 26 Anion Gap 5 L BUN 35.6 H Creatinine 1.3 Est GFR (CKD-EPI)AfAm 56.18 Est GFR (CKD-EPI)NonAf 48.47 POC Glucometer Random Glucose 381 H Calcium 8.0 L Phosphorus 4.3 Magnesium 2.8 H Ferritin Total Bilirubin 0.2 AST 16 ALT 43 Alkaline Phosphatase 161 H LD Total 317 H C-Reactive Protein Total Protein 5.4 L Albumin 1.4 L 12/18/19 12/18/19 12/18/19 05:30 05:30 06:10 WBC RBC Hgb Hct MCV MCH MCHC RDW Plt Count MPV Absolute Neuts (auto) Neutrophils % Neutrophils % (Manual) Band Neutrophils % Lymphocytes % Lymphocytes % (Manual) Monocytes % Monocytes % (Manual) Eosinophils % Eosinophils % (Manual) Basophils % Basophils % (Manual) Myelocytes % (Man) Promyelocytes % (Man) Blast Cells % (Manual) Nucleated RBC % Metamyelocytes Hypochromia Platelet Estimate Polychromasia Poikilocytosis Anisocytosis Microcytosis Macrocytosis D-Dimer 1350 H Anticoagulation Therapy Puncture Site Patient Temperature ABG pH ABG pCO2 ABG pO2 ABG HCO3 ABG O2 Sat (Measured) ABG O2 Content ABG Base Excess [place] Test Patient On Oxygen O2 Delivery Device Oxygen Flow Rate Vent Mode Vent Rate Mechanical Rate PEEP Pressure Support Vent Sodium Potassium Chloride Carbon Dioxide Anion Gap BUN Creatinine Est GFR (CKD-EPI)AfAm Est GFR (CKD-EPI)NonAf POC Glucometer 372 Random Glucose Calcium Phosphorus Magnesium Ferritin 249.3 Total Bilirubin AST ALT Alkaline Phosphatase LD Total C-Reactive Protein 11.9 H Total Protein Albumin 12/18/19 12/18/19 09:25 11:12 WBC RBC Hgb Hct MCV MCH MCHC RDW Plt Count MPV Absolute Neuts (auto) Neutrophils % Neutrophils % (Manual) Band Neutrophils % Lymphocytes % Lymphocytes % (Manual) Monocytes % Monocytes % (Manual) Eosinophils % Eosinophils % (Manual) Basophils % Basophils % (Manual) Myelocytes % (Man) Promyelocytes % (Man) Blast Cells % (Manual) Nucleated RBC % Metamyelocytes Hypochromia Platelet Estimate Polychromasia Poikilocytosis Anisocytosis Microcytosis Macrocytosis D-Dimer Anticoagulation Therapy No Result Required. Puncture Site Right radial Patient Temperature No Result Required. ABG pH 7.207 L ABG pCO2 63.00 H ABG pO2 107.7 H ABG HCO3 24.5 ABG O2 Sat (Measured) 96.7 ABG O2 Content No Result Required. ABG Base Excess -3.9 L [place] Test Positive Patient On Oxygen Yes O2 Delivery Device V Oxygen Flow Rate 80 Vent Mode Vent Rate 28 Mechanical Rate Ac PEEP 9.0 Pressure Support Vent 350 Sodium Potassium Chloride Carbon Dioxide Anion Gap BUN Creatinine Est GFR (CKD-EPI)AfAm Est GFR (CKD-EPI)NonAf POC Glucometer 257 Random Glucose Calcium Phosphorus Magnesium Ferritin Total Bilirubin AST ALT Alkaline Phosphatase LD Total C-Reactive Protein Total Protein Albumin ASSESSMENT/PLAN: Acute Respiratory Failure due to COVID19 Pneumonitis Capillary Leak Syndrome DM Hyperglycemia HTN Gastroparesis Sepsis PE ruled out LTVV; PPlat goal<30 Cont Dexamethasone Sedation for vent synchrony Diuresis for net even to neg Full AC Strict Isolation and usage of Full PPE S/P Remdesivir x 5 days F/u Convalescent Plasma treatment ID following If cultures are negative will give Actemra Vit C; Vitamin D; Zinc Strict I & O Replete electrolytes Dr Rivas Critical care time spent in reviewing chart, evaluating patient and formulating plan - 36 minutes.
--- NOTE | 2019-12-18 14:22 | PN ---
Progress Note, Physician History of Present Illness: SEDATED ON VENTILATOR FIO2 REDUCED TO 80% OFF PRESSORS LOW GRADE TEMP - Current Medication List Current Medications: Active Medications Acetaminophen (Ofirmev Injection -) 1,000 mg IVPB Q8H PRN PRN Reason: FEVER Stop: 12/19/19 06:41 Albuterol Sulfate (Ventolin Hfa Inhaler -) 2 puff IH Q4H PRN PRN Reason: SHORT OF BREATH/WHEEZING Amino Acids (Prosource No Carb Liquid Pkt) 30 ml PO BID@0800,1730 [facility] Artificial Tears (Artificial Tears) 1 drop OU TID PRN PRN Reason: Dry eyes Last Admin: 12/15/19 13:59 Dose: 1 drop Documented by: Ascorbic Acid (Vitamin C Oral Solution -) 250 mg NGT BID [facility] Last Admin: 12/18/19 10:50 Dose: 250 mg Documented by: Budesonide/Formoterol Fumarate (Symbicort 160/4.5mcg -) 2 puff IH BID [facility] Last Admin: 12/18/19 11:03 Dose: Not Given Documented by: Chlorhexidine Gluconate (Hibiclens For Decolonization -) 1 applic TP HS [facility] Last Admin: 12/17/19 21:04 Dose: 1 applic Documented by: Cholecalciferol (Vitamin D3 Oral Solution -) 1,000 unit GT DAILY [facility] Last Admin: 12/18/19 10:49 Dose: 1,000 units Documented by: Enoxaparin Sodium (Lovenox -) 80 mg SQ BID [facility] Last Admin: 12/18/19 10:49 Dose: 80 mg Documented by: Propofol (Diprivan -) 1,000,000 mcg in 100 mls @ 2.395 mls/hr IVPB TITR [facility]; Protocol Last Titration: 12/18/19 12:04 Dose: 55 mcg/kg/min, 26.345 mls/hr Documented by: Midazolam HCl 100 mg/ Sodium (Chloride) 100 mls @ 1 mls/hr IVPB TITR [facility]; Protocol Last Admin: 12/18/19 06:12 Dose: 10 mg/hr, 10 mls/hr Documented by: Vecuronium [place] (Vecuronium [place]) 100 mg in 100 mls @ 4.79 mls/hr IVPB TITR [facility] Last Admin: 12/18/19 06:12 Dose: Not Given Documented by: Sodium Chloride (Normal Saline -) 1,000 mls @ 25 mls/hr IV ASDIR [facility] Last Admin: 12/18/19 07:37 Dose: 25 mls/hr Documented by: Fentanyl (Sublimaze Ivpb) 500 mcg in 100 mls @ 15.966 mls/hr IVPB TITR [facility]; Protocol Last Titration: 12/18/19 12:04 Dose: 1.25 mcg/kg/hr, 20 mls/hr Documented by: Cefepime HCl 2 gm/ Sodium (Chloride) 100 mls @ 200 mls/hr IVPB Q8H-IV [facility]; Protocol Vancomycin HCl 1,000 mg/ (Sodium Chloride) 250 mls @ 166.667 mls/hr IVPB Q12H [facility]; Protocol Insulin Aspart (Novolog Vial Sliding Scale -) 1 vial SQ ACHS [facility]; Protocol Last Admin: 12/18/19 11:10 Dose: 6 units Documented by: Ipratropium [place] (Atrovent 0.02% Nebulizer -) 1 amp NEB Q6H PRN PRN Reason: DYSPEPSIA Stop: 12/22/19 02:18 Methylprednisolone Sodium Succinate (Solu-Medrol -) 40 mg IVPUSH BID [facility] Last Admin: 12/18/19 10:51 Dose: 40 mg Documented by: Mupirocin (Bactroban Ointment (For Decolonization) -) 1 applic NS BID [facility] Stop: 12/20/19 00:14 Last Admin: 12/18/19 11:03 Dose: 1 applic Documented by: Nystatin (Mycostatin Cream -) 1 applic TP BID [facility] Pantoprazole Sodium (Protonix Iv) 40 mg IVPUSH DAILY [facility] Last Admin: 12/18/19 10:50 Dose: 40 mg Documented by: Zinc Sulfate (Orazinc -) 220 mg NGT BID [facility] Last Admin: 12/18/19 11:04 Dose: Not Given Documented by: - Objective Vital Signs: Vital Signs Temperature 98.1 F 12/18/19 12:00 Pulse Rate 88 12/18/19 12:59 Respiratory Rate 28 H 12/18/19 12:59 Blood Pressure 100/60 12/18/19 12:59 O2 Sat by Pulse Oximetry (%) 93 L 12/18/19 12:59 Constitutional: Yes: No Distress Cardiovascular: Yes: Regular Rate and Rhythm, S1, S2 Respiratory: Yes: Mechanically Ventilated Gastrointestinal: Yes: Normal Bowel Sounds, Soft. No: Tenderness Edema: Yes Labs: CBC, BMP 12/18/19 05:30 12/18/19 05:30 INR, PTT INR 0.92 (0.83-1.09) 12/05/19 06:15 Assessment/Plan COVID-19 PNEUMONITIS S/P RESP FAILURE R/O SEPTIC SHOCK CONTINUR EMPIRIC VANCOMYCIN / CEFEPIME RECEIVED CONVALESCENT PLASMA, REMDESIVIR VENTILATORY SUPPORT
[2019-12-18 16:44] LABS: BASO % 0.3 % (0-2.0); EOS % 0.3 % (0-4.5); HEMATOCRIT 27.7 % (32.4-45.2); HEMOGLOBIN 8.9 GM/dL (10.7-15.3); LYMPH % 3.7 % (8-40); MCH 26.6 pg (25.7-33.7); MCHC 31.9 g/dl (32.0-36.0); MEAN CELL VOLUME 83.3 fl (80-96); MEAN PLT VOLUME 8.5 fl (7.5-11.1); MONO % 6.2 % (3.8-10.2); NEUT % 89.5 % (42.8-82.8); PLATELET COUNT 201 K/MM3 (134-434); RBC 3.33 M/mm3 (3.60-5.2); RDW 14.8 % (11.6-15.6); WHITE BLOOD COUNT 11.5 K/mm3 (4.0-10.0)
[2019-12-18] MEDS: NYSTATIN 100,000 UNIT/GM TOPICAL CREAM 15 GM TUBE TP SCH ×2 (17:37→22:15)
[2019-12-18] MEDS: CEFEPIME 2 GM in SODIUM CHLORIDE 100 ML IVPB SCH (17:38)
[2019-12-18 18:15] LABS: ANISOCYTOSIS 2+; MACROCYTOSIS 1+; PLATELET ESTIMATE NORMAL
[2019-12-18] MEDS: AMINO ACIDS/PROTEIN HYDROLYS 30 ML LIQUID.PKT PO SCH (22:14)
[2019-12-18] MEDS: CHLORHEXIDINE GLUCONATE 4% CLEANSER FOR DECOLONIZATION TP SCH (22:15)
[2019-12-19] MEDS ORDERED: FENTANYL IVPB 500 MCG/100 ML BAG IVPB ONE ×2 (00:04→04:25)
[2019-12-19] MEDS ORDERED: MIDAZOLAM IN 0.9 % SOD.CHLORID 1 MG/1 ML PLAST..BAG ONE ×3 (00:05→20:20)
[2019-12-19] MEDS ORDERED: PT OWN MED DRAWER 7, Y5N ONE ×4 (01:19→21:01)
[2019-12-19] MEDS: CEFEPIME 2 GM in SODIUM CHLORIDE 100 ML IVPB SCH ×3 (03:08→17:55)
[2019-12-19] MEDS: PROPOFOL 1,000,000 MCG/100 ML VIAL IVPB SCH (03:09)
[2019-12-19] MEDS: MIDAZOLAM 100 MG in SODIUM CHLORIDE 100 ML IVPB SCH (04:00)
[2019-12-19] MEDS: VECURONIUM BROMIDE 100 MG/100 ML BAG IVPB SCH (06:29)
[2019-12-19] MEDS: SODIUM CHLORIDE 1,000 ML IV SCH ×2 (06:30→14:52)
[2019-12-19] MEDS: INSULIN SLIDING SCALE (NOVOLOG) 1 VIAL SQ SCH ×4 (06:30→21:14)
--- NOTE | 2019-12-19 06:43 | PN ---
Physical Exam: SUBJECTIVE: Patient seen and examined. No acute events overnight. Pt remains intubated and sedated. OBJECTIVE: Vital Signs Period Temp Pulse Resp BP Sys/[place] Pulse Ox Last 24 Hr 94.4 F-98.1 F 66-103 28-28 88-130/51-81 92-100 Physical exam as per Dr. Otoole, due to limited PPE GENERAL: Intubated and sedated. HEENT: NCAT, ETT in place. CARDIAC: Tacychardic. Regular rate and rhythm, S1, S2 present, no murmurs. RESPIRATORY: b/l rhonchi GI: soft, non-distended, bowel sounds present EXTREMITIES: no edema. Laboratory Last Values WBC 8.2 K/mm3 (4.0-10.0) 12/19/19 06:00 RBC 3.24 M/mm3 (3.60-5.2) L 12/19/19 06:00 Hgb 8.5 GM/dL (10.7-15.3) L 12/19/19 06:00 Hct 26.2 % (32.4-45.2) L 12/19/19 06:00 MCV 80.8 fl (80-96) 12/19/19 06:00 MCH 26.3 pg (25.7-33.7) 12/19/19 06:00 MCHC 32.6 g/dl (32.0-36.0) 12/19/19 06:00 RDW 14.8 % (11.6-15.6) 12/19/19 06:00 Plt Count 200 K/MM3 (134-434) 12/19/19 06:00 MPV 8.5 fl (7.5-11.1) 12/19/19 06:00 Absolute Neuts (auto) 7.2 K/mm3 (1.5-8.0) 12/19/19 06:00 Total Counted 100 12/15/19 02:03 Neutrophils % 88.8 % (42.8-82.8) H 12/19/19 06:00 Neutrophils % (Manual) 91.5 % (42.8-82.8) H 12/19/19 06:00 Band Neutrophils % 4.2 % 12/19/19 06:00 Lymphocytes % 6.4 % (8-40) L D 12/19/19 06:00 Lymphocytes % (Manual) 1.1 % (8-40) L D 12/19/19 06:00 Monocytes % 4.5 % (3.8-10.2) 12/19/19 06:00 Monocytes % (Manual) 2 % (3.8-10.2) L 12/19/19 06:00 Eosinophils % 0.1 % (0-4.5) 12/19/19 06:00 Eosinophils % (Manual) 0.0 % (0-4.5) D 12/19/19 06:00 Basophils % 0.2 % (0-2.0) 12/19/19 06:00 Basophils % (Manual) 0.0 % (0-2.0) 12/19/19 06:00 Myelocytes % (Man) 0 % (0-2) 12/19/19 06:00 Promyelocytes % (Man) 0 % (0-2) 12/19/19 06:00 Blast Cells % (Manual) 0 % (0-0) 12/19/19 06:00 Nucleated RBC % 1 % (0-0) H 12/19/19 06:00 Metamyelocytes 0 % (0-2) 12/19/19 06:00 Hypochromia 0 12/19/19 06:00 Platelet Estimate Normal 12/19/19 06:00 Platelet Comment No clotting detected 12/15/19 02:03 Platelet Comment No clumping noted 12/15/19 02:03 Polychromasia 0 12/19/19 06:00 Poikilocytosis 0 12/19/19 06:00 Anisocytosis 0 12/19/19 06:00 Microcytosis 0 12/19/19 06:00 Macrocytosis 0 12/19/19 06:00 ESR 101 mm/hr (0-20) H 12/09/19 07:51 PT with INR 10.80 SEC (9.7-13.0) 12/05/19 06:15 INR 0.92 (0.83-1.09) 12/05/19 06:15 PTT (Actin FS) 29.2 SECONDS (25.2-36.5) 12/05/19 06:15 D-Dimer 938 ng/ml (0-500) H 12/19/19 06:00 Anticoagulation Therapy No Result Required. 12/18/19 09:25 Puncture Site Right radial 12/18/19 09:25 Patient Temperature No Result Required. 12/18/19 09:25 ABG pH 7.207 (7.350-7.450) L 12/18/19 09:25 ABG pCO2 63.00 mmHg (35-45) H 12/18/19 09:25 ABG pO2 107.7 mmHg (80-100) H 12/18/19 09:25 ABG HCO3 24.5 mmol/L (22-27) 12/18/19 09:25 ABG O2 Sat (Measured) 96.7 mmHg (95-98) 12/18/19 09:25 ABG O2 Content No Result Required. 12/18/19 09:25 ABG Base Excess -3.9 mmol/L (-2-2) L 12/18/19 09:25 John Paul Test Positive 12/18/19 09:25 Patient On Oxygen Yes 12/18/19 09:25 O2 Delivery Device V 12/18/19 09:25 Oxygen Flow Rate 80 12/18/19 09:25 Vent Mode 12/18/19 09:25 Vent Rate 28 12/18/19 09:25 Mechanical Rate Ac 12/18/19 09:25 PEEP 9.0 cmH2O 12/18/19 09:25 Pressure Support Vent 350 12/18/19 09:25 Sodium 138 mmol/L (136-145) 12/19/19 06:00 Potassium 4.9 mmol/L (3.5-5.1) 12/19/19 06:00 Chloride 107 mmol/L (98-107) 12/19/19 06:00 Carbon Dioxide 21 mmol/L (21-32) 12/19/19 06:00 Anion Gap 10 MMOL/L (8-16) 12/19/19 06:00 BUN 52.6 mg/dL (7-18) H 12/19/19 06:00 Creatinine 1.7 mg/dL (0.55-1.3) H 12/19/19 06:00 Est GFR (CKD-EPI)AfAm 40.62 12/19/19 06:00 Est GFR (CKD-EPI)NonAf 35.05 12/19/19 06:00 POC Glucometer 226 UNITS (80-120) 12/19/19 10:49 Random Glucose 233 mg/dL (74-106) H 12/19/19 06:00 Hemoglobin A1c % < 3.5 % (4.2-6.3) L 12/05/19 12:01 Lactic Acid 0.9 mmol/L (0.4-2.0) 12/05/19 15:14 Calcium 8.0 mg/dL (8.5-10.1) L 12/19/19 06:00 Phosphorus 5.4 mg/dL (2.5-4.9) H 12/19/19 06:00 Magnesium 3.0 mg/dL (1.8-2.4) H 12/19/19 06:00 Ferritin 249.3 ng/ml (8-388) 12/18/19 05:30 Total Bilirubin 0.9 mg/dL (0.2-1) 12/19/19 06:00 Direct Bilirubin 0.1 mg/dL (0.0-0.2) 12/16/19 05:30 AST 12 U/L (15-37) L 12/19/19 06:00 ALT 31 U/L (13-61) 12/19/19 06:00 Alkaline Phosphatase 131 U/L (45-117) H 12/19/19 06:00 LD Total 239 U/L (84-246) 12/19/19 06:00 Troponin I < 0.02 ng/ml (0.00-0.05) 12/05/19 06:15 C-Reactive Protein 6.4 MG/DL (0.00-0.3) H 12/19/19 06:00 B-Natriuretic Peptide 624.4 pg/ml (5-125) H 12/15/19 11:18 Total Protein 5.3 g/dl (6.4-8.2) L 12/19/19 06:00 Albumin 1.3 g/dl (3.4-5.0) L 12/19/19 06:00 Beta-Hydroxybutyrate 29.7 mg/dL (0.2-2.8) H 12/05/19 12:01 Beta HCG, Quant Cancelled 12/05/19 06:15 Serum , Qual Negative 12/05/19 08:00 Urine Color Yellow 12/05/19 05:49 Urine Appearance Cloudy 12/05/19 05:49 Urine pH 5.0 (5.0-8.0) 12/05/19 05:49 Ur Specific [place] 1.029 (1.010-1.035) 12/05/19 05:49 Urine Protein 3+ (NEGATIVE) H 12/05/19 05:49 Urine Glucose (UA) 3+ (NEGATIVE) H 12/05/19 05:49 Urine Ketones 1+ (NEGATIVE) H 12/05/19 05:49 Urine Blood 1+ (NEGATIVE) H 12/05/19 05:49 Urine Nitrite Negative (NEGATIVE) 12/05/19 05:49 Urine Bilirubin Negative (NEGATIVE) 12/05/19 05:49 Urine Urobilinogen 0.2 mg/dL (0.2-1.0) 12/05/19 05:49 Ur Leukocyte Esterase Trace (NEGATIVE) 12/05/19 05:49 Urine WBC (Auto) 598 /uL (0-25.8) 12/05/19 05:49 Urine RBC (Auto) 13 /uL (0-23.9) 12/05/19 05:49 Urine Casts (Auto) 27 /uL (0-3.1) 12/05/19 05:49 U Epithel Cells (Auto) >36 /uL (0-25.1) 12/05/19 05:49 Urine Bacteria (Auto) >10,000 /uL (0-1359) 12/05/19 05:49 Vancomycin Pre-Dose 13.8 ug/ml (5-10) H 12/17/19 10:50 COVID-19 (BULMARO) Detected (Not Detected) H 12/05/19 06:15 Hep A IgM Ab Confirm Negative (Negative) 12/05/19 19:15 Hep Bs Antigen Negative (Negative) 12/05/19 19:15 Hep B Core IgM Ab Negative (Negative) 12/05/19 19:15 Hepatitis C Ab (EIA) <0.1 s/co ratio (0.0-0.9) 12/05/19 19:15 SARS-CoV-2 Ab Interp Non-reactive (NONREACTIVE) 12/05/19 11:05 Blood Type O POSITIVE 12/14/19 18:35 Antibody Screen Negative 12/14/19 18:35 Active Medications Acetaminophen (Ofirmev Injection -) 1,000 mg IVPB Q8H PRN PRN Reason: FEVER Stop: 12/19/19 06:41 Albuterol Sulfate (Ventolin Hfa Inhaler -) 2 puff IH Q4H PRN PRN Reason: SHORT OF BREATH/WHEEZING Amino Acids (Prosource No Carb Liquid Pkt) 30 ml PO BID@0800,1730 [facility] Last Admin: 12/18/19 22:14 Dose: Not Given Documented by: Artificial Tears (Artificial Tears) 1 drop OU TID PRN PRN Reason: Dry eyes Last Admin: 12/15/19 13:59 Dose: 1 drop Documented by: Ascorbic Acid (Vitamin C Oral Solution -) 250 mg NGT BID [facility] Last Admin: 12/18/19 22:16 Dose: 250 mg Documented by: Chlorhexidine Gluconate (Hibiclens For Decolonization -) 1 applic TP HS [facility] Last Admin: 12/18/19 22:15 Dose: 1 applic Documented by: Cholecalciferol (Vitamin D3 Oral Solution -) 1,000 unit GT DAILY [facility] Last Admin: 12/18/19 10:49 Dose: 1,000 units Documented by: Enoxaparin Sodium (Lovenox -) 80 mg SQ BID [facility] Last Admin: 12/18/19 22:15 Dose: 80 mg Documented by: Propofol (Diprivan -) 1,000,000 mcg in 100 mls @ 2.395 mls/hr IVPB TITR [facility]; Protocol Last Admin: 12/19/19 03:09 Dose: 55 mcg/kg/min, 26.345 mls/hr Documented by: Midazolam HCl 100 mg/ Sodium (Chloride) 100 mls @ 1 mls/hr IVPB TITR [facility]; Protocol Last Admin: 12/19/19 04:00 Dose: 8 mg/hr, 8 mls/hr Documented by: Vecuronium [place] (Vecuronium [place]) 100 mg in 100 mls @ 4.79 mls/hr IVPB TITR [facility] Last Admin: 12/19/19 06:29 Dose: Not Given Documented by: Sodium Chloride (Normal Saline -) 1,000 mls @ 25 mls/hr IV ASDIR [facility] Last Admin: 12/19/19 06:30 Dose: 25 mls/hr Documented by: Fentanyl (Sublimaze Ivpb) 500 mcg in 100 mls @ 15.966 mls/hr IVPB TITR [facility]; Protocol Last Admin: 12/18/19 16:03 Dose: 1.25 mcg/kg/hr, 20 mls/hr Documented by: Cefepime HCl 2 gm/ Sodium (Chloride) 100 mls @ 200 mls/hr IVPB Q8H-IV [facility]; Protocol Last Admin: 12/19/19 03:08 Dose: 200 mls/hr Documented by: Vancomycin HCl 1,000 mg/ (Sodium Chloride) 250 mls @ 166.667 mls/hr IVPB Q12H [facility]; Protocol Last Admin: 12/19/19 00:00 Dose: 166.667 mls/hr Documented by: Insulin Aspart (Novolog Vial Sliding Scale -) 1 vial SQ ACHS [facility]; Protocol Last Admin: 12/19/19 06:30 Dose: 4 units Documented by: Ipratropium [place] (Atrovent 0.02% Nebulizer -) 1 amp NEB Q6H PRN PRN Reason: DYSPEPSIA Stop: 12/22/19 02:18 Methylprednisolone Sodium Succinate (Solu-Medrol -) 40 mg IVPUSH BID [facility] Last Admin: 12/18/19 22:16 Dose: 40 mg Documented by: Mupirocin (Bactroban Ointment (For Decolonization) -) 1 applic NS BID [facility] Stop: 12/20/19 00:14 Last Admin: 12/18/19 22:15 Dose: 1 applic Documented by: Nystatin (Mycostatin Cream -) 1 applic TP BID [facility] Last Admin: 12/18/19 22:15 Dose: 1 applic Documented by: Pantoprazole Sodium (Protonix Iv) 40 mg IVPUSH DAILY [facility] Last Admin: 12/18/19 10:50 Dose: 40 mg Documented by: Zinc Sulfate (Orazinc -) 220 mg NGT BID [facility] Last Admin: 12/18/19 22:16 Dose: 220 mg Documented by: IVF resuscitation LTVV; PPlat goal<30 Cont Dexamethasone Sedation for vent synchrony Full AC Strict Isolation and usage of Full PPE S/P Remdesivir x 5 days S/P Convalescent Plasma treatment Vit C; Vitamin D; Zinc Strict I & O Replete electrolytes ASSESSMENT/PLAN: 49 yo Female with PMH DM, HTN, gastroparesis presented to ED with shortness of breath and is admitted to ICU for COVID pneumonitis. Pt was desaturating ~80% on NRB and tachypneic RR 40 and using accessory muscles. Pt was placed on HFOT, but further desaturated SpO2 ~70%. Pt was not able to sustain SpO2 greater than 88% and thus, decision made to intubate. Pt had rising WBC. Pt completed remdesevir regimen, received C-plasma, and is currently on Cefepime and vancomycin. ABG showed respiratory acidosis. Neuro - Sedated on propofol, midazolam, fentanyl - c/w vecuronium for paralysis if sats <90% and check ABG Cardio h/o HTN - No home meds for HTN. - Monitor and maintain MAP>65 - Monitor and transfuse if Hb<7 Pulmonary COVID pneumonitis - c/w albuterol, ipratropium bromide, methylprednisolone 40 BID - c/w Lovenox 80 BID - Vent: AC/VC 28/350/80%/9, maintain PPlat <30. Today Pplat 28. - CXR showed b/l congestive and infiltrative changes - ABG this morning showed respiratory acidosis. Repeat ABG done after increasing RR of vent showed improvement, however, still respiratory acidosis. - monitor inflammatory markers GI h/o gastroparesis -Last BM 12/13 -consider Reglan Endo h/o DM - ISS + BGM Renal NELLIE -Diuresis for net negative -Nephrology consulted. Cr 1.7. Recommended check ua, lytes, gate attendant. Avoid nephrotoxic medication if possible. -Monitor I/O's, Cr ID COVID pneumonitis - c/w Vitamin C, D, Zinc - ID consulted. Pt completed 5 days Remdesevir. Received c-plasma. Completed rocephin/azithromycin. Recommended c/w cefepime (day 5). Hold vancomycin. f/u vanc level in the morning. - c/w trending inflammatory markers. Improving. - Bcx negative thus far. Ucx negative. Sputum culture grew Enterococcus faecalis and yeast-like organism. - Consider tocilizumab - c/w topical nystatin cream for skin PPX - DVT: Lovenox 80 BID - GI : PPI 40 IV qD FEN - NS @50 - Monitor and replete electrolytes as needed - Continue tube feeds (Promote) LTD - RIJ 12/14 - ETT 12/14 - [place] Dispo: Continue to monitor in the ICU. Visit type - Emergency Visit Emergency Visit: Yes ED Registration Date: 12/05/19 Care time: The patient presented to the Emergency Department on the above date and was hospitalized for further evaluation of their emergent condition. - New Patient This patient is new to me today: No - Critical Care Critical Care patient: Yes Total Critical Care Time (in minutes): 38 Critical Care Statement: The care of this patient involved high complexity de cision making to prevent further life threatening deterioration of the patient's condition and/or to evaluate & treat vital organ system(s) failure or risk of failure. ATTENDING PHYSICIAN STATEMENT I saw and evaluated the patient. I reviewed the resident's note and discussed the case with the resident. I agree with the resident's findings and plan as documented. SUBJECTIVE: OBJECTIVE: ASSESSMENT AND PLAN:
[2019-12-19 07:01] LABS: BASO % 0.2 % (0-2.0); EOS % 0.1 % (0-4.5); HEMATOCRIT 26.2 % (32.4-45.2); HEMOGLOBIN 8.5 GM/dL (10.7-15.3); LYMPH % 6.4 % (8-40); MCH 26.3 pg (25.7-33.7); MCHC 32.6 g/dl (32.0-36.0); MEAN CELL VOLUME 80.8 fl (80-96); MEAN PLT VOLUME 8.5 fl (7.5-11.1); MONO % 4.5 % (3.8-10.2); NEUT % 88.8 % (42.8-82.8); PLATELET COUNT 200 K/MM3 (134-434); RBC 3.24 M/mm3 (3.60-5.2); RDW 14.8 % (11.6-15.6); WHITE BLOOD COUNT 8.2 K/mm3 (4.0-10.0)
[2019-12-19 07:32] LABS: ALBUMIN 1.3 g/dl (3.4-5.0); BILIRUBIN,TOTAL 0.9 mg/dL (0.2-1); BLOOD UREA NITROGEN 52.6 mg/dL (7-18); CREATININE 1.7 mg/dL (0.55-1.3); PHOSPHOROUS 5.4 mg/dL (2.5-4.9); POTASSIUM 4.9 mmol/L (3.5-5.1); TOT PROT 5.3 g/dl (6.4-8.2)
[2019-12-19] MEDS: AMINO ACIDS/PROTEIN HYDROLYS 30 ML LIQUID.PKT PO SCH (09:04)
[2019-12-19 10:02] LABS: ANISOCYTOSIS 0; MACROCYTOSIS 0; PLATELET ESTIMATE NORMAL
[2019-12-19] MEDS: MUPIROCIN 2% TOPICAL OINTMENT FOR DECOLONIZATION NS SCH ×2 (10:11→21:12)
[2019-12-19] MEDS: ENOXAPARIN NA (PORCINE) 80 MG/0.8 ML DISP.SYRIN SQ SCH ×2 (10:13→21:12)
[2019-12-19] MEDS: methylPREDNISolone NA SUCC 40 MG/1 ML VIAL IVPUSH SCH ×2 (10:14→21:13)
[2019-12-19] MEDS: CHOLECALCIFEROL (VIT D SOLUTION) 400 UNIT/1 ML DROPS GT SCH (10:17)
[2019-12-19] MEDS: ZINC SULFATE 220 MG CAPSULE (FP) NGT SCH ×2 (10:17→21:13)
[2019-12-19] MEDS: NYSTATIN 100,000 UNIT/GM TOPICAL CREAM 15 GM TUBE TP SCH ×2 (10:18→21:13)
[2019-12-19] MEDS: PANTOPRAZOLE SODIUM 40 MG VIAL IVPUSH SCH (10:19)
[2019-12-19] MEDS: ASCORBIC ACID 500 MG/5 ML UNIT DOSE CUP NGT SCH ×2 (10:22→21:13)
[2019-12-19] MEDS ORDERED: FENTANYL NS IVPB 500 MCG/100 ML BAG IVPB ONE ×2 (10:27→16:24)
[2019-12-19] MEDS: ARTIFICIAL TEARS (POLYVINYL ALCOHOL) OPTH DROPS OU PRN (11:30)
[2019-12-19] MEDS: VANCOMYCIN 1,000 MG in SODIUM CHLORIDE 250 ML IVPB SCH ×2 (12:02)
[2019-12-19] MEDS ORDERED: SODIUM CHLORIDE 500 ML IV STA (12:36)
--- NOTE | 2019-12-19 12:40 | PN ---
Teaching Attending Note Name of Resident: Sandi Jaimes ATTENDING PHYSICIAN STATEMENT I saw and evaluated the patient. I reviewed the resident's note and discussed the case with the resident. I agree with the resident's findings and plan as documented. SUBJECTIVE: Patient seen and examined in the ICU. Remains intubated and sedated. AC mode of vent, 80% FiO2. No pressors. PPlat : 28 Inflammatory markers are declining. Intake & Output 12/16/19 12/17/19 12/18/19 12/19/19 23:59 23:59 23:59 23:59 Intake Total 3672 2837.3 4592.6 1672.8 Output Total 3050 2000 2100 450 Balance 622 837.3 2492.6 1222.8 Last Vital Signs Temp Pulse Resp BP Pulse Ox 93.7 F L 66 28 H 115/73 94 L 12/19/19 10:00 12/19/19 10:00 12/19/19 10:00 12/19/19 10:00 12/19/19 10:00 Active Medications Albuterol Sulfate (Ventolin Hfa Inhaler -) 2 puff IH Q4H PRN PRN Reason: SHORT OF BREATH/WHEEZING Amino Acids (Prosource No Carb Liquid Pkt) 30 ml PO BID@0800,1730 [facility] Last Admin: 12/19/19 09:04 Dose: 30 ml Documented by: Artificial Tears (Artificial Tears) 1 drop OU TID PRN PRN Reason: Dry eyes Last Admin: 12/15/19 13:59 Dose: 1 drop Documented by: Ascorbic Acid (Vitamin C Oral Solution -) 250 mg NGT BID [facility] Last Admin: 12/19/19 10:22 Dose: 250 mg Documented by: Chlorhexidine Gluconate (Hibiclens For Decolonization -) 1 applic TP HS [facility] Last Admin: 12/18/19 22:15 Dose: 1 applic Documented by: Cholecalciferol (Vitamin D3 Oral Solution -) 1,000 unit GT DAILY [facility] Last Admin: 12/19/19 10:17 Dose: 1,000 units Documented by: Enoxaparin Sodium (Lovenox -) 80 mg SQ BID [facility] Last Admin: 12/19/19 10:13 Dose: 80 mg Documented by: Propofol (Diprivan -) 1,000,000 mcg in 100 mls @ 2.395 mls/hr IVPB TITR [facility]; Protocol Last Admin: 12/19/19 03:09 Dose: 55 mcg/kg/min, 26.345 mls/hr Documented by: Midazolam HCl 100 mg/ Sodium (Chloride) 100 mls @ 1 mls/hr IVPB TITR [facility]; Protocol Last Admin: 12/19/19 04:00 Dose: 8 mg/hr, 8 mls/hr Documented by: Vecuronium [place] (Vecuronium [place]) 100 mg in 100 mls @ 4.79 mls/hr IVPB TITR [facility] Last Admin: 12/19/19 06:29 Dose: Not Given Documented by: Sodium Chloride (Normal Saline -) 1,000 mls @ 25 mls/hr IV ASDIR [facility] Last Admin: 12/19/19 06:30 Dose: 25 mls/hr Documented by: Fentanyl (Sublimaze Ivpb) 500 mcg in 100 mls @ 15.966 mls/hr IVPB TITR [facility]; Protocol Last Admin: 12/18/19 16:03 Dose: 1.25 mcg/kg/hr, 20 mls/hr Documented by: Cefepime HCl 2 gm/ Sodium (Chloride) 100 mls @ 200 mls/hr IVPB Q8H-IV [facility]; Protocol Last Admin: 12/19/19 09:07 Dose: 200 mls/hr Documented by: Vancomycin HCl 1,000 mg/ (Sodium Chloride) 250 mls @ 166.667 mls/hr IVPB Q12H [facility]; Protocol Last Admin: 12/19/19 12:02 Dose: 166.667 mls/hr Documented by: Sodium Chloride (Normal Saline -) 500 mls @ 500 mls/hr IV ASDIR STA Stop: 12/19/19 13:35 Insulin Aspart (Novolog Vial Sliding Scale -) 1 vial SQ ACHS [facility]; Protocol Last Admin: 12/19/19 10:24 Dose: 4 units Documented by: Ipratropium [place] (Atrovent 0.02% Nebulizer -) 1 amp NEB Q6H PRN PRN Reason: DYSPEPSIA Stop: 12/22/19 02:18 Methylprednisolone Sodium Succinate (Solu-Medrol -) 40 mg IVPUSH BID [facility] Last Admin: 12/19/19 10:14 Dose: 40 mg Documented by: Mupirocin (Bactroban Ointment (For Decolonization) -) 1 applic NS BID [facility] Stop: 12/20/19 00:14 Last Admin: 12/19/19 10:11 Dose: 1 applic Documented by: Nystatin (Mycostatin Cream -) 1 applic TP BID [facility] Last Admin: 12/19/19 10:18 Dose: 1 applic Documented by: Pantoprazole Sodium (Protonix Iv) 40 mg IVPUSH DAILY [facility] Last Admin: 12/19/19 10:19 Dose: 40 mg Documented by: Zinc Sulfate (Orazinc -) 220 mg NGT BID [facility] Last Admin: 12/19/19 10:17 Dose: 220 mg Documented by: GEN: intubated, sedated ENT: Sclera clear LUNGS: Vented, bilateral coarse rhonchi CV: S1S2, tachy RRR ABD: Soft, ND, NT+ bowel sounds, no guarding, no rebound EXT: WWP; no edema NEURO: Sedated Laboratory Results - last 24 hr 12/18/19 12/18/19 12/18/19 16:30 17:29 22:12 WBC 11.5 H RBC 3.33 L Hgb 8.9 L Hct 27.7 L MCV 83.3 MCH 26.6 MCHC 31.9 L RDW 14.8 Plt Count 201 MPV 8.5 Absolute Neuts (auto) 10.2 H Neutrophils % 89.5 H Neutrophils % (Manual) 89.3 H Band Neutrophils % 1.0 Lymphocytes % 3.7 L D Lymphocytes % (Manual) 5.8 L Monocytes % 6.2 Monocytes % (Manual) 3 L Eosinophils % 0.3 D Eosinophils % (Manual) 1.0 D Basophils % 0.3 Basophils % (Manual) 0.0 Myelocytes % (Man) 0 Promyelocytes % (Man) 0 Blast Cells % (Manual) 0 Nucleated RBC % 0 Metamyelocytes 0 Hypochromia 2+ Platelet Estimate Normal Polychromasia 0 Poikilocytosis 0 Anisocytosis 2+ Microcytosis 2+ Macrocytosis 1+ D-Dimer Sodium Potassium Chloride Carbon Dioxide Anion Gap BUN Creatinine Est GFR (CKD-EPI)AfAm Est GFR (CKD-EPI)NonAf POC Glucometer 282 248 Random Glucose Calcium Phosphorus Magnesium Total Bilirubin AST ALT Alkaline Phosphatase LD Total C-Reactive Protein Total Protein Albumin 12/19/19 12/19/19 12/19/19 06:00 06:00 06:00 WBC 8.2 RBC 3.24 L Hgb 8.5 L Hct 26.2 L MCV 80.8 MCH 26.3 MCHC 32.6 RDW 14.8 Plt Count 200 MPV 8.5 Absolute Neuts (auto) 7.2 Neutrophils % 88.8 H Neutrophils % (Manual) 91.5 H Band Neutrophils % 4.2 Lymphocytes % 6.4 L D Lymphocytes % (Manual) 1.1 L D Monocytes % 4.5 Monocytes % (Manual) 2 L Eosinophils % 0.1 Eosinophils % (Manual) 0.0 D Basophils % 0.2 Basophils % (Manual) 0.0 Myelocytes % (Man) 0 Promyelocytes % (Man) 0 Blast Cells % (Manual) 0 Nucleated RBC % 1 H Metamyelocytes 0 Hypochromia 0 Platelet Estimate Normal Polychromasia 0 Poikilocytosis 0 Anisocytosis 0 Microcytosis 0 Macrocytosis 0 D-Dimer Sodium 138 Potassium 4.9 Chloride 107 Carbon Dioxide 21 Anion Gap 10 BUN 52.6 H Creatinine 1.7 H Est GFR (CKD-EPI)AfAm 40.62 Est GFR (CKD-EPI)NonAf 35.05 POC Glucometer Random Glucose 233 H Calcium 8.0 L Phosphorus 5.4 H Magnesium 3.0 H Total Bilirubin 0.9 AST 12 L ALT 31 Alkaline Phosphatase 131 H LD Total 239 C-Reactive Protein 6.4 H Total Protein 5.3 L Albumin 1.3 L 12/19/19 12/19/19 12/19/19 06:00 06:16 10:49 WBC RBC Hgb Hct MCV MCH MCHC RDW Plt Count MPV Absolute Neuts (auto) Neutrophils % Neutrophils % (Manual) Band Neutrophils % Lymphocytes % Lymphocytes % (Manual) Monocytes % Monocytes % (Manual) Eosinophils % Eosinophils % (Manual) Basophils % Basophils % (Manual) Myelocytes % (Man) Promyelocytes % (Man) Blast Cells % (Manual) Nucleated RBC % Metamyelocytes Hypochromia Platelet Estimate Polychromasia Poikilocytosis Anisocytosis Microcytosis Macrocytosis D-Dimer 938 H Sodium Potassium Chloride Carbon Dioxide Anion Gap BUN Creatinine Est GFR (CKD-EPI)AfAm Est GFR (CKD-EPI)NonAf POC Glucometer 220 226 Random Glucose Calcium Phosphorus Magnesium Total Bilirubin AST ALT Alkaline Phosphatase LD Total C-Reactive Protein Total Protein Albumin ASSESSMENT/PLAN: Acute Respiratory Failure due to COVID19 Pneumonitis Capillary Leak Syndrome DM Hyperglycemia HTN Gastroparesis Sepsis PE ruled out NELLIE IVF resuscitation LTVV; PPlat goal<30 Cont Dexamethasone Sedation for vent synchrony Full AC Strict Isolation and usage of Full PPE S/P Remdesivir x 5 days S/P Convalescent Plasma treatment Vit C; Vitamin D; Zinc Strict I & O Replete electrolytes Dr Rivas Critical care time spent in reviewing chart, evaluating patient and formulating plan - 36 minutes.
[2019-12-19] MEDS: FENTANYL IVPB 500 MCG/100 ML BAG IVPB SCH ×2 (14:59→20:00)
--- NOTE | 2019-12-19 16:38 | CONSULT ---
Consult Consult Specialty:: Nephrology Reason for Consultation:: GEORGE - History of Present Illness Chief Complaint: initially presented with fatigue History of Present Illness: Pt is a 49 year old female with a prolonged hospital stay. She was found to have George and I was called to evaluate her. She has history of DM, HTN and gastroparesis. She initially presented to the ER with fatigue and weakness. She was found to be positive for COVID. She developed progressive respiratory failure and eventually required intubation. She is now intubated in the ICU. She was found to have elevated fruit or nut picker and I was called to evaluate her. She is on feeds however has had elevated residuals. She is making urine. - History Source History Provided By: Medical Record - Past Medical History Cardio/Vascular: Yes: Hyperlipdemia ...LMP: 08/20/16 Endocrine: Yes: Diabetes Mellitus - Alcohol/Substance Use Hx Alcohol Use: No - Smoking History Smoking history: Never smoked Have you smoked in the past 12 months: No Aproximately how many cigarettes per day: 0 - Social History Usual Living Arrangement: With Spouse History of Recent Travel: No Home Medications - Allergies Allergies/Adverse Reactions: Allergies Allergy/AdvReac Type Severity Reaction Status Date / Time Penicillins Allergy Verified 12/05/19 05:18 - Home Medications Home Medications: Ambulatory Orders Insulin Glargine,Hum.rec.anlog [Lantus Solostar PEN (NF)] 50 units SQ DAILY 09/18/16 Ondansetron [Zofran Odt -] 4 mg SL TID #21 od.tablet 10/08/16 Amitriptyline HCl [Elavil -] 10 mg PO BID 12/05/19 Gabapentin [Neurontin -] 900 mg PO BID 12/05/19 Omeprazole 20 mg PO DAILY 12/05/19 metFORMIN HCL [Metformin HCl ER] 1,000 mg PO DAILY 12/05/19 Ergocalciferol (Vitamin D2) [Vitamin D2] 50,000 units PO WEEKLY 12/08/19 Family Medical History Family History: Unable to Obtain Review of Systems Unable to obtain ROS, reason: intubated Physical Exam Vital Signs: Vital Signs Temperature 95.2 F L 12/19/19 14:00 Pulse Rate 86 12/19/19 14:00 Respiratory Rate 28 H 12/19/19 14:00 Blood Pressure 115/67 12/19/19 14:00 O2 Sat by Pulse Oximetry (%) 89 L 12/19/19 14:00 Constitutional: Yes: Calm Eyes: Yes: Conjunctiva Clear HENT: Yes: Atraumatic Cardiovascular: Yes: S1, S2 Respiratory: Yes: Mechanically Ventilated Gastrointestinal: Yes: Soft Renal/: Yes: [place] Present Musculoskeletal: Yes: Muscle Weakness Edema: No Integumentary: Yes: WNL Neurological: Yes: Lethargy Labs: CBC, BMP 12/19/19 06:00 12/19/19 06:00 Laboratory Tests 12/05/19 12/05/19 12/15/19 05:49 06:15 02:03 Hgb ABG pH ABG pCO2 Creatinine 0.8 Urine Protein 3+ H Urine Blood 1+ H Vancomycin Pre-Dose COVID-19 ([facility]) Detected H 12/15/19 12/16/19 12/17/19 11:18 05:30 05:00 Hgb ABG pH ABG pCO2 Creatinine 1.2 1.0 0.7 Urine Protein Urine Blood Vancomycin Pre-Dose COVID-19 ([facility]) 12/17/19 12/18/19 12/18/19 10:50 05:30 09:25 Hgb ABG pH 7.207 L ABG pCO2 63.00 H Creatinine 1.3 Urine Protein Urine Blood Vancomycin Pre-Dose 13.8 H COVID-19 ([facility]) 12/19/19 12/19/19 12/19/19 06:00 06:00 12:00 Hgb 8.5 L ABG pH ABG pCO2 Creatinine 1.7 H Urine Protein Urine Blood Vancomycin Pre-Dose 37.3 H* COVID-19 ([facility]) Imaging - Results Chest X-ray: Report Reviewed Problem List - Problems (1) GEORGE (acute kidney injury) Code(s): N17.9 - ACUTE KIDNEY FAILURE, UNSPECIFIED (2) Acute respiratory failure Code(s): J96.00 - ACUTE RESPIRATORY FAILURE, UNSP W HYPOXIA OR HYPERCAPNIA Qualifiers: Respiratory failure complication: hypoxia Qualified Code(s): J96.01 - Acute respiratory failure with hypoxia (3) COVID-19 Code(s): U07.1 - COVID POSITIVE Assessment/Plan Current Medications Generic Name Dose Route Start Last Admin Trade Name Freq PRN Reason Stop Dose Admin Albuterol Sulfate 2 puff 12/15/19 04:44 Ventolin Hfa Inhaler - IH Q4H PRN SHORT OF BREATH/WHEEZING Amino Acids 30 ml 12/18/19 17:30 12/19/19 09:04 Prosource No Carb Liquid Pkt PO 30 ml BID@0800,1730 [facility] Administration Artificial Tears 1 drop 12/15/19 09:04 12/19/19 11:30 Artificial Tears OU 1 drop TID PRN Administration Dry eyes Ascorbic Acid 250 mg 12/15/19 22:00 12/19/19 10:22 Vitamin C Oral Solution - NGT 250 mg BID [facility] Administration Chlorhexidine Gluconate 1 applic 12/15/19 22:00 12/18/19 22:15 Hibiclens For Decolonization - TP 1 applic HS [facility] Administration Cholecalciferol 1,000 unit 12/16/19 10:00 12/19/19 10:17 Vitamin D3 Oral Solution - GT 1,000 units DAILY [facility] Administration Enoxaparin Sodium 80 mg 12/15/19 10:00 12/19/19 10:13 Lovenox - SQ 80 mg BID [facility] Administration Propofol 1,000,000 mcg in 100 mls @ 2.395 mls/hr 12/15/19 03:45 12/19/19 03:09 Diprivan - IVPB 55 mcg/kg/min TITR [facility] 26.345 mls/hr Administration Protocol 5 MCG/KG/MIN Midazolam HCl 100 mg/ Sodium 100 mls @ 1 mls/hr 12/15/19 04:00 12/19/19 14:00 Chloride IVPB 6 mg/hr TITR [facility] 6 mls/hr Titration Protocol 1 MG/HR Vecuronium [place] 100 mg in 100 mls @ 4.79 mls/hr 12/15/19 04:15 12/19/19 06:29 Vecuronium [place] IVPB Not Given TITR [facility] 1 MCG/KG/MIN Fentanyl 500 mcg in 100 mls @ 15.966 mls/hr 12/17/19 11:30 12/19/19 14:59 Sublimaze Ivpb IVPB 1.25 mcg/kg/hr TITR [facility] 20 mls/hr Administration Protocol 1 MCG/KG/HR Cefepime HCl 2 gm/ Sodium 100 mls @ 200 mls/hr 12/18/19 18:00 12/19/19 09:07 Chloride IVPB 200 mls/hr Q8H-IV [facility] Administration Protocol Sodium Chloride 1,000 mls @ 50 mls/hr 12/19/19 13:35 12/19/19 14:52 Normal Saline - IV 50 mls/hr ASDIR [facility] Administration Insulin Aspart 1 vial 12/15/19 07:00 12/19/19 10:24 Novolog Vial Sliding Scale - SQ 4 units ACHS [facility] Administration Protocol Ipratropium [place] 1 amp 12/15/19 02:18 Atrovent 0.02% Nebulizer - NEB 12/22/19 02:18 Q6H PRN DYSPEPSIA Methylprednisolone Sodium Succinate 40 mg 12/15/19 10:00 12/19/19 10:14 Solu-Medrol - IVPUSH 40 mg BID [facility] Administration Mupirocin 1 applic 12/15/19 00:15 12/19/19 10:11 Bactroban Ointment (For Decolonization) - NS 12/20/19 00:14 1 applic BID [facility] Administration Nystatin 1 applic 12/18/19 12:00 12/19/19 10:18 Mycostatin Cream - TP 1 applic BID [facility] Administration Pantoprazole Sodium 40 mg 12/16/19 10:00 12/19/19 10:19 Protonix Iv IVPUSH 40 mg DAILY [facility] Administration Zinc Sulfate 220 mg 12/15/19 22:00 12/19/19 10:17 Orazinc - NGT 220 mg BID [facility] Administration Impression 1. GEORGE 2. covid 3. resp failure requiring intubation 4. dm 5. htn 6. gastroparesis 7. sepsis 8. elevated vanco level Plan - monitor urine output - saline bolus and start fluids - check ua, lytes and fruit or nut picker - repeat lab and monitor fruit or nut picker trend - cont vent support - cont feeds - discussed with ICU team - monitor oxygen level - avoid nephrotoxins - will follow pt - repeat vanco level in am
[2019-12-19] MEDS: CHLORHEXIDINE GLUCONATE 4% CLEANSER FOR DECOLONIZATION TP SCH (21:12)
--- NOTE | 2019-12-19 21:31 | PN ---
Progress Note, Physician History of Present Illness: SEDATED ON VENTILATOR HYPOTHERMIC VANCOMYCIN LEVEL, CR NOTED - Current Medication List Current Medications: Active Medications Albuterol Sulfate (Ventolin Hfa Inhaler -) 2 puff IH Q4H PRN PRN Reason: SHORT OF BREATH/WHEEZING Amino Acids (Prosource No Carb Liquid Pkt) 30 ml PO BID@0800,1730 [facility] Last Admin: 12/19/19 09:04 Dose: 30 ml Documented by: Artificial Tears (Artificial Tears) 1 drop OU TID PRN PRN Reason: Dry eyes Last Admin: 12/19/19 11:30 Dose: 1 drop Documented by: Ascorbic Acid (Vitamin C Oral Solution -) 250 mg NGT BID [facility] Last Admin: 12/19/19 21:13 Dose: 250 mg Documented by: Chlorhexidine Gluconate (Hibiclens For Decolonization -) 1 applic TP HS [facility] Last Admin: 12/19/19 21:12 Dose: 1 applic Documented by: Cholecalciferol (Vitamin D3 Oral Solution -) 1,000 unit GT DAILY [facility] Last Admin: 12/19/19 10:17 Dose: 1,000 units Documented by: Enoxaparin Sodium (Lovenox -) 80 mg SQ BID [facility] Last Admin: 12/19/19 21:12 Dose: 80 mg Documented by: Propofol (Diprivan -) 1,000,000 mcg in 100 mls @ 2.395 mls/hr IVPB TITR [facility]; Protocol Last Admin: 12/19/19 03:09 Dose: 55 mcg/kg/min, 26.345 mls/hr Documented by: Midazolam HCl 100 mg/ Sodium (Chloride) 100 mls @ 1 mls/hr IVPB TITR [facility]; Protocol Last Titration: 12/19/19 15:30 Dose: 8 mg/hr, 8 mls/hr Documented by: Vecuronium [place] (Vecuronium [place]) 100 mg in 100 mls @ 4.79 mls/hr IVPB TITR [facility] Last Admin: 12/19/19 06:29 Dose: Not Given Documented by: Fentanyl (Sublimaze Ivpb) 500 mcg in 100 mls @ 15.966 mls/hr IVPB TITR [facility]; Protocol Last Admin: 12/19/19 14:59 Dose: 1.25 mcg/kg/hr, 20 mls/hr Documented by: Cefepime HCl 2 gm/ Sodium (Chloride) 100 mls @ 200 mls/hr IVPB Q8H-IV [facility]; Protocol Last Admin: 12/19/19 17:55 Dose: 200 mls/hr Documented by: Sodium Chloride (Normal Saline -) 1,000 mls @ 50 mls/hr IV ASDIR [facility] Last Admin: 12/19/19 14:52 Dose: 50 mls/hr Documented by: Insulin Aspart (Novolog Vial Sliding Scale -) 1 vial SQ ACHS [facility]; Protocol Last Admin: 12/19/19 21:14 Dose: 2 units Documented by: Ipratropium [place] (Atrovent 0.02% Nebulizer -) 1 amp NEB Q6H PRN PRN Reason: DYSPEPSIA Stop: 12/22/19 02:18 Methylprednisolone Sodium Succinate (Solu-Medrol -) 40 mg IVPUSH BID [facility] Last Admin: 12/19/19 21:13 Dose: 40 mg Documented by: Mupirocin (Bactroban Ointment (For Decolonization) -) 1 applic NS BID [facility] Stop: 12/20/19 00:14 Last Admin: 12/19/19 21:12 Dose: 1 applic Documented by: Nystatin (Mycostatin Cream -) 1 applic TP BID [facility] Last Admin: 12/19/19 21:13 Dose: 1 applic Documented by: Pantoprazole Sodium (Protonix Iv) 40 mg IVPUSH DAILY [facility] Last Admin: 12/19/19 10:19 Dose: 40 mg Documented by: Zinc Sulfate (Orazinc -) 220 mg NGT BID [facility] Last Admin: 12/19/19 21:13 Dose: 220 mg Documented by: - Objective Vital Signs: Vital Signs Temperature 98.9 F 12/19/19 16:00 Pulse Rate 101 H 12/19/19 20:30 Respiratory Rate 29 H 12/19/19 20:30 Blood Pressure 129/72 12/19/19 19:30 O2 Sat by Pulse Oximetry (%) 96 12/19/19 20:30 Constitutional: Yes: No Distress Cardiovascular: Yes: Regular Rate and Rhythm, S1, S2 Respiratory: Yes: Mechanically Ventilated Gastrointestinal: Yes: Normal Bowel Sounds, Soft Edema: No Labs: CBC, BMP 12/19/19 06:00 12/19/19 06:00 INR, PTT INR 0.92 (0.83-1.09) 12/05/19 06:15 Assessment/Plan COVID-19 PNEUMONITIS S/P RESP FAILURE CONTINUR EMPIRIC CEFEPIME HOLD VANCOMYCIN RECEIVED CONVALESCENT PLASMA, REMDESIVIR VENTILATORY SUPPORT
[2019-12-20] MEDS: FENTANYL IVPB 500 MCG/100 ML BAG IVPB SCH ×4 (01:00→21:19)
[2019-12-20] MEDS ORDERED: PT OWN MED DRAWER 7, Y5N ONE ×3 (01:58→17:03)
[2019-12-20] MEDS: CEFEPIME 2 GM in SODIUM CHLORIDE 100 ML IVPB SCH ×3 (02:00→17:24)
[2019-12-20] MEDS: SODIUM CHLORIDE 1,000 ML IV SCH (02:00)
[2019-12-20] MEDS: PROPOFOL 1,000,000 MCG/100 ML VIAL IVPB SCH ×3 (04:00→21:19)
[2019-12-20] MEDS: MIDAZOLAM 100 MG in SODIUM CHLORIDE 100 ML IVPB SCH ×2 (04:00→18:31)
[2019-12-20] MEDS: VECURONIUM BROMIDE 100 MG/100 ML BAG IVPB SCH (04:23)
[2019-12-20] MEDS: AMINO ACIDS/PROTEIN HYDROLYS 30 ML LIQUID.PKT PO SCH ×3 (04:23→17:24)
[2019-12-20] MEDS: INSULIN SLIDING SCALE (NOVOLOG) 1 VIAL SQ SCH ×4 (06:15→22:23)
[2019-12-20 07:10] LABS: BASO % 0.2 % (0-2.0); EOS % 0.1 % (0-4.5); HEMATOCRIT 26.7 % (32.4-45.2); HEMOGLOBIN 8.6 GM/dL (10.7-15.3); LYMPH % 5.9 % (8-40); MCH 26.3 pg (25.7-33.7); MCHC 32.3 g/dl (32.0-36.0); MEAN CELL VOLUME 81.3 fl (80-96); MEAN PLT VOLUME 8.2 fl (7.5-11.1); MONO % 5.5 % (3.8-10.2); NEUT % 88.3 % (42.8-82.8); PLATELET COUNT 231 K/MM3 (134-434); RBC 3.28 M/mm3 (3.60-5.2); RDW 15.3 % (11.6-15.6); WHITE BLOOD COUNT 9.5 K/mm3 (4.0-10.0)
[2019-12-20 07:22] LABS: EPI CELLS 14 /uL (0-25.1); HYALINE CASTS 1 /uL (0-3.1); URINE APPEARANCE CLOUDY; URINE BACTERIA 5 /uL (0-1359); URINE BILIRUBIN NEGATIVE (NEGATIVE); URINE COLOR YELLOW; URINE GLUCOSE (UA) NEGATIVE (NEGATIVE); URINE KETONE NEGATIVE (NEGATIVE); URINE LEUK ESTERASE NEGATIVE (NEGATIVE); URINE NITRITE NEGATIVE (NEGATIVE); URINE PROTEIN 1+ (NEGATIVE); URINE UROBILINOGEN 0.2 mg/dL (0.2-1.0)
--- NOTE | 2019-12-20 07:24 | PN ---
Physical Exam: SUBJECTIVE: Patient seen and examined. No acute events overnight. Pt had SpO2 >98% the entire night. Pt remained intubated and sedated. OBJECTIVE: Vital Signs Period Temp Pulse Resp BP Sys/Aguilar Pulse Ox Last 24 Hr 93.7 F-98.9 F 63-112 28-29 104-138/66-78 88-100 Physical exam as per Dr[address] Otoole, due to limited PPE GENERAL: Intubated and sedated. HEENT: NCAT, ETT in place. CARDIAC: Regular rate and rhythm, S1, S2 present, no murmurs. RESPIRATORY: b/l rhonchi GI: soft, non-distended, bowel sounds present EXTREMITIES: no edema. Laboratory Last Values WBC 9.5 K/mm3 (4.0-10.0) 12/20/19 06:00 RBC 3.28 M/mm3 (3.60-5.2) L 12/20/19 06:00 Hgb 8.6 GM/dL (10.7-15.3) L 12/20/19 06:00 Hct 26.7 % (32.4-45.2) L 12/20/19 06:00 MCV 81.3 fl (80-96) 12/20/19 06:00 MCH 26.3 pg (25.7-33.7) 12/20/19 06:00 MCHC 32.3 g/dl (32.0-36.0) 12/20/19 06:00 RDW 15.3 % (11.6-15.6) 12/20/19 06:00 Plt Count 231 K/MM3 (134-434) 12/20/19 06:00 MPV 8.2 fl (7.5-11.1) 12/20/19 06:00 Absolute Neuts (auto) 8.4 K/mm3 (1.5-8.0) H 12/20/19 06:00 Total Counted 100 12/15/19 02:03 Neutrophils % 88.3 % (42.8-82.8) H 12/20/19 06:00 Neutrophils % (Manual) 91.5 % (42.8-82.8) H 12/19/19 06:00 Band Neutrophils % 4.2 % 12/19/19 06:00 Lymphocytes % 5.9 % (8-40) L 08/12/20 06:00 Lymphocytes % (Manual) 1.1 % (8-40) L D 12/19/19 06:00 Monocytes % 5.5 % (3.8-10.2) 12/20/19 06:00 Monocytes % (Manual) 2 % (3.8-10.2) L 12/19/19 06:00 Eosinophils % 0.1 % (0-4.5) 12/20/19 06:00 Eosinophils % (Manual) 0.0 % (0-4.5) D 12/19/19 06:00 Basophils % 0.2 % (0-2.0) 12/20/19 06:00 Basophils % (Manual) 0.0 % (0-2.0) 12/19/19 06:00 Myelocytes % (Man) 0 % (0-2) 12/19/19 06:00 Promyelocytes % (Man) 0 % (0-2) 12/19/19 06:00 Blast Cells % (Manual) 0 % (0-0) 12/19/19 06:00 Nucleated RBC % 0 % (0-0) 12/20/19 06:00 Metamyelocytes 0 % (0-2) 12/19/19 06:00 Hypochromia 0 12/19/19 06:00 Platelet Estimate Normal 12/19/19 06:00 Platelet Comment No clotting detected 12/15/19 02:03 Platelet Comment No clumping noted 12/15/19 02:03 Polychromasia 0 12/19/19 06:00 Poikilocytosis 0 12/19/19 06:00 Anisocytosis 0 12/19/19 06:00 Microcytosis 0 12/19/19 06:00 Macrocytosis 0 12/19/19 06:00 ESR 115 mm/hr (0-20) H 12/20/19 06:00 PT with INR 10.80 SEC (9.7-13.0) 12/05/19 06:15 INR 0.92 (0.83-1.09) 12/05/19 06:15 PTT (Actin FS) 29.2 SECONDS (25.2-36.5) 12/05/19 06:15 D-Dimer 1140 ng/ml (0-500) H 12/20/19 06:00 Anticoagulation Therapy No Result Required. 12/18/19 09:25 Puncture Site Right radial 12/18/19 09:25 Patient Temperature No Result Required. 12/18/19 09:25 ABG pH 7.207 (7.350-7.450) L 12/18/19 09:25 ABG pCO2 63.00 mmHg (35-45) H 12/18/19 09:25 ABG pO2 107.7 mmHg (80-100) H 12/18/19 09:25 ABG HCO3 24.5 mmol/L (22-27) 12/18/19 09:25 ABG O2 Sat (Measured) 96.7 mmHg (95-98) 12/18/19 09:25 ABG O2 Content No Result Required. 12/18/19 09:25 ABG Base Excess -3.9 mmol/L (-2-2) L 12/18/19 09:25 John Paul Test Positive 12/18/19 09:25 Patient On Oxygen Yes 12/18/19 09:25 O2 Delivery Device V 12/18/19 09:25 Oxygen Flow Rate 80 12/18/19 09:25 Vent Mode 12/18/19 09:25 Vent Rate 28 12/18/19 09:25 Mechanical Rate Ac 12/18/19 09:25 PEEP 9.0 cmH2O 12/18/19 09:25 Pressure Support Vent 350 12/18/19 09:25 Sodium 139 mmol/L (136-145) 12/20/19 06:00 Potassium 5.3 mmol/L (3.5-5.1) H 12/20/19 06:00 Chloride 110 mmol/L (98-107) H 12/20/19 06:00 Carbon Dioxide 20 mmol/L (21-32) L 12/20/19 06:00 Anion Gap 8 MMOL/L (8-16) 12/20/19 06:00 BUN 61.4 mg/dL (7-18) H 12/20/19 06:00 Creatinine 1.7 mg/dL (0.55-1.3) H 12/20/19 06:00 Est GFR (CKD-EPI)AfAm 40.62 12/20/19 06:00 Est GFR (CKD-EPI)NonAf 35.05 12/20/19 06:00 POC Glucometer 211 UNITS (80-120) 12/20/19 06:11 Random Glucose 223 mg/dL (74-106) H 12/20/19 06:00 Hemoglobin A1c % < 3.5 % (4.2-6.3) L 12/05/19 12:01 Lactic Acid 0.9 mmol/L (0.4-2.0) 12/05/19 15:14 Calcium 7.9 mg/dL (8.5-10.1) L 12/20/19 06:00 Phosphorus 5.7 mg/dL (2.5-4.9) H 12/20/19 06:00 Magnesium 3.0 mg/dL (1.8-2.4) H 12/20/19 06:00 Ferritin 249.3 ng/ml (8-388) 12/18/19 05:30 Total Bilirubin 0.2 mg/dL (0.2-1) 12/20/19 06:00 Direct Bilirubin 0.1 mg/dL (0.0-0.2) 12/16/19 05:30 AST 17 U/L (15-37) 12/20/19 06:00 ALT 28 U/L (13-61) 12/20/19 06:00 Alkaline Phosphatase 147 U/L (45-117) H 12/20/19 06:00 LD Total 301 U/L (84-246) H 12/20/19 06:00 Troponin I < 0.02 ng/ml (0.00-0.05) 12/05/19 06:15 C-Reactive Protein 5.5 MG/DL (0.00-0.3) H 12/20/19 06:00 B-Natriuretic Peptide 624.4 pg/ml (5-125) H 12/15/19 11:18 Total Protein 5.4 g/dl (6.4-8.2) L 12/20/19 06:00 Albumin 1.3 g/dl (3.4-5.0) L 12/20/19 06:00 Beta-Hydroxybutyrate 29.7 mg/dL (0.2-2.8) H 12/05/19 12:01 Beta HCG, Quant Cancelled 12/05/19 06:15 Serum , Qual Negative 12/05/19 08:00 Urine Color Yellow 12/20/19 06:00 Urine Appearance Cloudy 12/20/19 06:00 Urine pH 5.0 (5.0-8.0) 12/20/19 06:00 Ur Specific [place] 1.014 (1.010-1.035) 12/20/19 06:00 Urine Protein 1+ (NEGATIVE) H 12/20/19 06:00 Urine Glucose (UA) Negative (NEGATIVE) 12/20/19 06:00 Urine Ketones Negative (NEGATIVE) 12/20/19 06:00 Urine Blood Negative (NEGATIVE) 12/20/19 06:00 Urine Nitrite Negative (NEGATIVE) 12/20/19 06:00 Urine Bilirubin Negative (NEGATIVE) 12/20/19 06:00 Urine Urobilinogen 0.2 mg/dL (0.2-1.0) 12/20/19 06:00 Ur Leukocyte Esterase Negative (NEGATIVE) 12/20/19 06:00 Urine WBC (Auto) 598 /uL (0-25.8) 12/05/19 05:49 Urine RBC (Auto) 13 /uL (0-23.9) 12/05/19 05:49 Urine Casts (Auto) 1 /uL (0-3.1) 12/20/19 06:00 U Epithel Cells (Auto) 14 /uL (0-25.1) 12/20/19 06:00 Urine Bacteria (Auto) 5 /uL (0-1359) 12/20/19 06:00 Ur Random Creatinine 26.0 mg/dL (30-150) L 12/20/19 06:00 Ur Random Sodium 53 MMOL/L (40-220) 12/20/19 06:00 Ur Random Potassium 11.0 MMOL/L (25-125) L 12/20/19 06:00 Ur Random Chloride 44 MMOL/L (110-250) L 12/20/19 06:00 Random Vancomycin 39.1 ug/ml (5-26) H* 12/20/19 06:00 Vancomycin Pre-Dose 37.3 ug/ml (5-10) H* 12/19/19 12:00 COVID-19 (BULMARO) Detected (Not Detected) H 12/05/19 06:15 Hep A IgM Ab Confirm Negative (Negative) 12/05/19 19:15 Hep Bs Antigen Negative (Negative) 12/05/19 19:15 Hep B Core IgM Ab Negative (Negative) 07/28/20 19:15 Hepatitis C Ab (EIA) <0.1 s/co ratio (0.0-0.9) 12/05/19 19:15 SARS-CoV-2 Ab Interp Non-reactive (NONREACTIVE) 12/05/19 11:05 Blood Type O POSITIVE 12/14/19 18:35 Antibody Screen Negative 12/14/19 18:35 Active Medications Albuterol Sulfate (Ventolin Hfa Inhaler -) 2 puff IH Q4H PRN PRN Reason: SHORT OF BREATH/WHEEZING Amino Acids (Prosource No Carb Liquid Pkt) 30 ml PO BID@0800,1730 [facility] Last Admin: 12/20/19 10:04 Dose: 30 ml Documented by: Artificial Tears (Artificial Tears) 1 drop OU TID PRN PRN Reason: Dry eyes Last Admin: 12/19/19 11:30 Dose: 1 drop Documented by: Ascorbic Acid (Vitamin C Oral Solution -) 250 mg NGT BID [facility] Last Admin: 12/20/19 10:04 Dose: 250 mg Documented by: Chlorhexidine Gluconate (Hibiclens For Decolonization -) 1 applic TP HS [facility] Last Admin: 12/19/19 21:12 Dose: 1 applic Documented by: Cholecalciferol (Vitamin D3 Oral Solution -) 1,000 unit GT DAILY [facility] Last Admin: 12/20/19 10:04 Dose: 1,000 units Documented by: Enoxaparin Sodium (Lovenox -) 80 mg SQ BID [facility] Last Admin: 12/20/19 10:04 Dose: 80 mg Documented by: Propofol (Diprivan -) 1,000,000 mcg in 100 mls @ 2.395 mls/hr IVPB TITR [facility]; Protocol Last Admin: 12/20/19 04:00 Dose: 50 mcg/kg/min, 23.95 mls/hr Documented by: Midazolam HCl 100 mg/ Sodium (Chloride) 100 mls @ 1 mls/hr IVPB TITR [facility]; Protocol Last Admin: 12/20/19 04:00 Dose: 8 mg/hr, 8 mls/hr Documented by: Vecuronium [place] (Vecuronium [place]avia) 100 mg in 100 mls @ 4.79 mls/hr IVPB TITR [facility] Last Admin: 12/20/19 04:23 Dose: Not Given Documented by: Fentanyl (Sublimaze Ivpb) 500 mcg in 100 mls @ 15.966 mls/hr IVPB TITR [facility]; Protocol Last Admin: 12/20/19 05:39 Dose: 1.25 mcg/kg/hr, 20 mls/hr Documented by: Cefepime HCl 2 gm/ Sodium (Chloride) 100 mls @ 200 mls/hr IVPB Q8H-IV [facility]; Protocol Last Admin: 12/20/19 10:04 Dose: 200 mls/hr Documented by: Sodium Chloride (1/2 Normal Saline) 1,000 mls @ 75 mls/hr IV ASDIR [facility] Insulin Aspart (Novolog Vial Sliding Scale -) 1 vial SQ ACHS [facility]; Protocol Last Admin: 12/20/19 06:15 Dose: 4 units Documented by: Methylprednisolone Sodium Succinate (Solu-Medrol -) 40 mg IVPUSH BID [facility] Last Admin: 12/20/19 10:04 Dose: 40 mg Documented by: Nystatin (Mycostatin Cream -) 1 applic TP BID [facility] Last Admin: 12/20/19 10:04 Dose: 1 applic Documented by: Pantoprazole Sodium (Protonix Iv) 40 mg IVPUSH DAILY [facility] Last Admin: 12/20/19 10:04 Dose: 40 mg Documented by: Zinc Sulfate (Orazinc -) 220 mg NGT BID [facility] Last Admin: 12/20/19 10:04 Dose: 220 mg Documented by: ASSESSMENT/PLAN: 49 yo Female with PMH DM, HTN, gastroparesis presented to ED with shortness of breath and is admitted to ICU for COVID pneumonitis. Pt was desaturating ~80% on NRB and tachypneic RR 40 and using accessory muscles. Pt was placed on HFOT, but further desaturated SpO2 ~70%. Pt was not able to sustain SpO2 greater than 88% and thus, decision made to intubate. Pt had rising WBC. Pt completed remdesevir regimen, received C-plasma, and is currently on Cefepime. ABG showed respiratory acidosis. Neuro - Sedated on propofol, midazolam, fentanyl - c/w vecuronium for paralysis if sats <90% Cardio h/o HTN - No home meds for HTN. - Monitor and maintain MAP>65 - Monitor and transfuse if Hb<7 Pulmonary COVID pneumonitis - c/w albuterol, ipratropium bromide, methylprednisolone 40 BID - c/w Lovenox 80 BID - Vent: AC/VC 28/350/100%/10, maintain PPlat <30. Today Pplat 24.6. Was put on 90% FiO2 during rounds. If pt sats >95%, can decrease FiO2. - CXR showed b/l congestive and infiltrative changes - ABG showed respiratory acidosis. Repeat ABG done after increasing RR of vent showed improvement, however, still respiratory acidosis. - monitor inflammatory markers GI h/o gastroparesis -Start Reglan -High residuals Endo h/o DM - ISS + BGM Renal Hyperkalemia NELLIE -Diuresis for net negative -Nephrology consulted. Cr 1.7. Recommended check BMP today, give Lokelma, given 1/2 NS @ 75. Treat hyperkalemia medically. If K+ improves, switch 1/2 NS to LR. -Monitor I/O's, Cr ID COVID pneumonitis - c/w Vitamin C, D, Zinc - ID consulted. Pt completed 5 days Remdesevir. Received c-plasma. Completed rocephin/azithromycin. Recommended c/w cefepime (day 6). D/C vancomycin. Random vanc level 39.1 - c/w trending inflammatory markers. Improving. - Bcx negative thus far. Ucx negative. Sputum culture grew Enterococcus faecalis and yeast-like organism. - Consider tocilizumab - c/w topical nystatin cream for skin PPX - DVT: Lovenox 80 BID - GI : PPI 40 IV qD FEN - 1/2 NS @ 75 - Monitor and replete electrolytes as needed - Continue tube feeds (Promote) LTD - RIJ 12/14 - ETT 12/14 - [place] Family discussion: Spoke to Ethel (sister) and Maury (pt's ) over the phone about pt's s tatus. Dispo: Continue to monitor in the ICU. Visit type - Emergency Visit Emergency Visit: Yes ED Registration Date: 12/05/19 Care time: The patient presented to the Emergency Department on the above date and was hospitalized for further evaluation of their emergent condition. - New Patient This patient is new to me today: No - Critical Care Critical Care patient: Yes Total Critical Care Time (in minutes): 38 Critical Care Statement: The care of this patient involved high complexity decision making to prevent further life threatening deterioration of the patient's condition and/or to evaluate & treat vital organ system(s) failure or risk of failure. ATTENDING PHYSICIAN STATEMENT I saw and evaluated the patient. I reviewed the resident's note and discussed the case with the resident. I agree with the resident's findings and plan as documented. SUBJECTIVE: OBJECTIVE: ASSESSMENT AND PLAN:
[2019-12-20 07:44] LABS: ALBUMIN 1.3 g/dl (3.4-5.0); BILIRUBIN,TOTAL 0.2 mg/dL (0.2-1); BLOOD UREA NITROGEN 61.4 mg/dL (7-18); CALCIUM 7.9 mg/dL (8.5-10.1); CREATININE 1.7 mg/dL (0.55-1.3); PHOSPHOROUS 5.7 mg/dL (2.5-4.9); POTASSIUM 5.3 mmol/L (3.5-5.1); TOT PROT 5.4 g/dl (6.4-8.2)
[2019-12-20] MEDS ORDERED: SODIUM CHLORIDE 500 ML IV STA (07:48)
[2019-12-20] MEDS: ENOXAPARIN NA (PORCINE) 80 MG/0.8 ML DISP.SYRIN SQ SCH ×2 (10:04→21:17)
[2019-12-20] MEDS: PANTOPRAZOLE SODIUM 40 MG VIAL IVPUSH SCH (10:04)
[2019-12-20] MEDS: ASCORBIC ACID 500 MG/5 ML UNIT DOSE CUP NGT SCH ×2 (10:04→21:18)
[2019-12-20] MEDS: NYSTATIN 100,000 UNIT/GM TOPICAL CREAM 15 GM TUBE TP SCH ×2 (10:04→21:18)
[2019-12-20] MEDS: methylPREDNISolone NA SUCC 40 MG/1 ML VIAL IVPUSH SCH ×2 (10:04→21:20)
[2019-12-20] MEDS: CHOLECALCIFEROL (VIT D SOLUTION) 400 UNIT/1 ML DROPS GT SCH (10:04)
[2019-12-20] MEDS: ZINC SULFATE 220 MG CAPSULE (FP) NGT SCH ×2 (10:04→21:18)
[2019-12-20] MEDS ORDERED: METOCLOPRAMIDE HCL INJECTION 10 MG/2 ML VIAL IVPUSH ONE (10:25)
[2019-12-20] MEDS ORDERED: SODIUM ZIRCONIUM CYCLOSILICATE (LOKELMA) 5 GM PACKET PO ONE ×2 (10:33→11:57)
--- NOTE | 2019-12-20 10:54 | PN ---
Progress Note, Physician History of Present Illness: SEDATED ON VENTILATOR HYPOTHERMIA NOTED VANCOMYCIN LEVEL, CR NOTED VANCOMYCIN D/C'D - Current Medication List Current Medications: Active Medications Albuterol Sulfate (Ventolin Hfa Inhaler -) 2 puff IH Q4H PRN PRN Reason: SHORT OF BREATH/WHEEZING Amino Acids (Prosource No Carb Liquid Pkt) 30 ml PO BID@0800,1730 [facility] Last Admin: 12/20/19 10:04 Dose: 30 ml Documented by: Artificial Tears (Artificial Tears) 1 drop OU TID PRN PRN Reason: Dry eyes Last Admin: 12/19/19 11:30 Dose: 1 drop Documented by: Ascorbic Acid (Vitamin C Oral Solution -) 250 mg NGT BID [facility] Last Admin: 12/20/19 10:04 Dose: 250 mg Documented by: Chlorhexidine Gluconate (Hibiclens For Decolonization -) 1 applic TP HS [facility] Last Admin: 12/19/19 21:12 Dose: 1 applic Documented by: Cholecalciferol (Vitamin D3 Oral Solution -) 1,000 unit GT DAILY [facility] Last Admin: 12/20/19 10:04 Dose: 1,000 units Documented by: Enoxaparin Sodium (Lovenox -) 80 mg SQ BID [facility] Last Admin: 12/20/19 10:04 Dose: 80 mg Documented by: Propofol (Diprivan -) 1,000,000 mcg in 100 mls @ 2.395 mls/hr IVPB TITR [facility]; Protocol Last Admin: 12/20/19 04:00 Dose: 50 mcg/kg/min, 23.95 mls/hr Documented by: Midazolam HCl 100 mg/ Sodium (Chloride) 100 mls @ 1 mls/hr IVPB TITR [facility]; Protocol Last Admin: 12/20/19 04:00 Dose: 8 mg/hr, 8 mls/hr Documented by: Vecuronium [place] (Vecuronium [place]) 100 mg in 100 mls @ 4.79 mls/hr IVPB TITR [facility] Last Admin: 12/20/19 04:23 Dose: Not Given Documented by: Fentanyl (Sublimaze Ivpb) 500 mcg in 100 mls @ 15.966 mls/hr IVPB TITR [facility]; Protocol Last Admin: 12/20/19 05:39 Dose: 1.25 mcg/kg/hr, 20 mls/hr Documented by: Cefepime HCl 2 gm/ Sodium (Chloride) 100 mls @ 200 mls/hr IVPB Q8H-IV [facility]; Protocol Last Admin: 12/20/19 10:04 Dose: 200 mls/hr Documented by: Sodium Chloride (1/2 Normal Saline) 1,000 mls @ 75 mls/hr IV ASDIR [facility] Insulin Aspart (Novolog Vial Sliding Scale -) 1 vial SQ ACHS [facility]; Protocol Last Admin: 12/20/19 06:15 Dose: 4 units Documented by: Methylprednisolone Sodium Succinate (Solu-Medrol -) 40 mg IVPUSH BID [facility] Last Admin: 12/20/19 10:04 Dose: 40 mg Documented by: Nystatin (Mycostatin Cream -) 1 applic TP BID [facility] Last Admin: 12/20/19 10:04 Dose: 1 applic Documented by: Pantoprazole Sodium (Protonix Iv) 40 mg IVPUSH DAILY [facility] Last Admin: 12/20/19 10:04 Dose: 40 mg Documented by: Zinc Sulfate (Orazinc -) 220 mg NGT BID [facility] Last Admin: 12/20/19 10:04 Dose: 220 mg Documented by: - Objective Vital Signs: Vital Signs Temperature 96.0 F L 12/20/19 10:00 Pulse Rate 79 12/20/19 10:00 Respiratory Rate 26 H 12/20/19 10:00 Blood Pressure 118/70 12/20/19 10:00 O2 Sat by Pulse Oximetry (%) 98 12/20/19 10:00 Constitutional: Yes: No Distress Cardiovascular: Yes: Regular Rate and Rhythm, S1, S2 Respiratory: Yes: Mechanically Ventilated Gastrointestinal: Yes: Normal Bowel Sounds, Soft. No: Tenderness Edema: Yes Labs: CBC, BMP 12/20/19 06:00 12/20/19 06:00 INR, PTT INR 0.92 (0.83-1.09) 12/05/19 06:15 Assessment/Plan COVID-19 PNEUMONITIS S/P RESP FAILURE CONTINUR EMPIRIC CEFEPIME VANCOMYCIN D/C'D RECEIVED CONVALESCENT PLASMA, REMDESIVIR VENTILATORY SUPPORT
--- NOTE | 2019-12-20 11:00 | PN ---
Teaching Attending Note Name of Resident: Sandi Jaimes ATTENDING PHYSICIAN STATEMENT I saw and evaluated the patient. I reviewed the resident's note and discussed the case with the resident. I agree with the resident's findings and plan as documented. SUBJECTIVE: Pt seen and examined in the ICU. Remains intubated, sedated. No pressors. Good urine output. Ppk 32, Pplat 28 on 100% FiO2, PEEP 9. OBJECTIVE: Vital Signs Period Temp Pulse Resp BP Sys/Aguilar Pulse Ox Last 24 Hr 95.2 F-98.9 F 63-112 26-29 104-138/66-75 88-100 Intake & Output 12/17/19 12/18/19 12/19/19 12/20/19 23:59 23:59 23:59 23:59 Intake Total 2837.3 4592.6 2898.8 1644 Output Total 1999 2099 1900 1000 Balance 837.3 2492.6 998.8 644 Gen: intubated, sedated Heart: RRR Lung: decreased breath sounds at the bases Abd: soft, nontender Ext: UE edema CBC, BMP 12/20/19 06:00 12/20/19 06:00 Active Medications Albuterol Sulfate (Ventolin Hfa Inhaler -) 2 puff IH Q4H PRN PRN Reason: SHORT OF BREATH/WHEEZING Amino Acids (Prosource No Carb Liquid Pkt) 30 ml PO BID@0800,1730 [facility] Last Admin: 12/20/19 10:04 Dose: 30 ml Documented by: Artificial Tears (Artificial Tears) 1 drop OU TID PRN PRN Reason: Dry eyes Last Admin: 12/19/19 11:30 Dose: 1 drop Documented by: Ascorbic Acid (Vitamin C Oral Solution -) 250 mg NGT BID [facility] Last Admin: 12/20/19 10:04 Dose: 250 mg Documented by: Chlorhexidine Gluconate (Hibiclens For Decolonization -) 1 applic TP HS [facility] Last Admin: 12/19/19 21:12 Dose: 1 applic Documented by: Cholecalciferol (Vitamin D3 Oral Solution -) 1,000 unit GT DAILY [facility] Last Admin: 12/20/19 10:04 Dose: 1,000 units Documented by: Enoxaparin Sodium (Lovenox -) 80 mg SQ BID [facility] Last Admin: 12/20/19 10:04 Dose: 80 mg Documented by: Propofol (Diprivan -) 1,000,000 mcg in 100 mls @ 2.395 mls/hr IVPB TITR [facility]; Protocol Last Admin: 12/20/19 04:00 Dose: 50 mcg/kg/min, 23.95 mls/hr Documented by: Midazolam HCl 100 mg/ Sodium (Chloride) 100 mls @ 1 mls/hr IVPB TITR [facility]; Protocol Last Admin: 12/20/19 04:00 Dose: 8 mg/hr, 8 mls/hr Documented by: Vecuronium Switchback (Vecuronium Switchback) 100 mg in 100 mls @ 4.79 mls/hr IVPB TITR [facility] Last Admin: 12/20/19 04:23 Dose: Not Given Documented by: Fentanyl (Sublimaze Ivpb) 500 mcg in 100 mls @ 15.966 mls/hr IVPB TITR [facility]; Protocol Last Admin: 12/20/19 05:39 Dose: 1.25 mcg/kg/hr, 20 mls/hr Documented by: Cefepime HCl 2 gm/ Sodium (Chloride) 100 mls @ 200 mls/hr IVPB Q8H-IV [facility]; Protocol Last Admin: 12/20/19 10:04 Dose: 200 mls/hr Documented by: Sodium Chloride (1/2 Normal Saline) 1,000 mls @ 75 mls/hr IV ASDIR [facility] Insulin Aspart (Novolog Vial Sliding Scale -) 1 vial SQ ACHS [facility]; Protocol Last Admin: 12/20/19 06:15 Dose: 4 units Documented by: Methylprednisolone Sodium Succinate (Solu-Medrol -) 40 mg IVPUSH BID [facility] Last Admin: 12/20/19 10:04 Dose: 40 mg Documented by: Nystatin (Mycostatin Cream -) 1 applic TP BID [facility] Last Admin: 12/20/19 10:04 Dose: 1 applic Documented by: Pantoprazole Sodium (Protonix Iv) 40 mg IVPUSH DAILY [facility] Last Admin: 12/20/19 10:04 Dose: 40 mg Documented by: Zinc Sulfate (Orazinc -) 220 mg NGT BID [facility] Last Admin: 12/20/19 10:04 Dose: 220 mg Documented by: ASSESSMENT AND PLAN: Acute Hypoxic Respiratory Failure COVID19 Pneumonia ARDS Sepsis Acute Kidney Injury DM HTN Gastroparesis - received convalescent plasma transfusion - completed remdesivir course - continue medrol - continue anticoagulation - low tidal volume ventilation - titrate Fio2, PEEP to keep SpO2 >90% - monitor Pplat - sedate for vent synchrony - monitor urine output, creatinine - reglan today - enteral feeds as tolerated - DVT/GI prophylaxis - continue ICU monitoring critical care time spent in reviewing chart, evaluating patient and formulating plan 35 min
[2019-12-20] MEDS: SODIUM CHLORIDE 0.45% 1,000 ML IV SCH (12:20)
[2019-12-20 12:24] LABS: ANISOCYTOSIS 0; MACROCYTOSIS 0; PLATELET ESTIMATE NORMAL
--- NOTE | 2019-12-20 12:47 | PN ---
Progress Note, Physician History of Present Illness: Pt seen and examined at bedside. She remains in the ICU. She remains intubated. - Current Medication List Current Medications: Active Medications Albuterol Sulfate (Ventolin Hfa Inhaler -) 2 puff IH Q4H PRN PRN Reason: SHORT OF BREATH/WHEEZING Amino Acids (Prosource No Carb Liquid Pkt) 30 ml PO BID@0800,1730 [facility] Last Admin: 12/20/19 10:04 Dose: 30 ml Documented by: Artificial Tears (Artificial Tears) 1 drop OU TID PRN PRN Reason: Dry eyes Last Admin: 12/19/19 11:30 Dose: 1 drop Documented by: Ascorbic Acid (Vitamin C Oral Solution -) 250 mg NGT BID [facility] Last Admin: 12/20/19 10:04 Dose: 250 mg Documented by: Chlorhexidine Gluconate (Hibiclens For Decolonization -) 1 applic TP HS [facility] Last Admin: 12/19/19 21:12 Dose: 1 applic Documented by: Cholecalciferol (Vitamin D3 Oral Solution -) 1,000 unit GT DAILY [facility] Last Admin: 12/20/19 10:04 Dose: 1,000 units Documented by: Enoxaparin Sodium (Lovenox -) 80 mg SQ BID [facility] Last Admin: 12/20/19 10:04 Dose: 80 mg Documented by: Propofol (Diprivan -) 1,000,000 mcg in 100 mls @ 2.395 mls/hr IVPB TITR [facility]; Protocol Last Admin: 12/20/19 04:00 Dose: 50 mcg/kg/min, 23.95 mls/hr Documented by: Midazolam HCl 100 mg/ Sodium (Chloride) 100 mls @ 1 mls/hr IVPB TITR [facility]; Protocol Last Admin: 12/20/19 04:00 Dose: 8 mg/hr, 8 mls/hr Documented by: Vecuronium [place] (Vecuronium [place]) 100 mg in 100 mls @ 4.79 mls/hr IVPB TITR [facility] Last Admin: 12/20/19 04:23 Dose: Not Given Documented by: Fentanyl (Sublimaze Ivpb) 500 mcg in 100 mls @ 15.966 mls/hr IVPB TITR [facility]; Protocol Last Admin: 12/20/19 05:39 Dose: 1.25 mcg/kg/hr, 20 mls/hr Documented by: Cefepime HCl 2 gm/ Sodium (Chloride) 100 mls @ 200 mls/hr IVPB Q8H-IV [facility]; Protocol Last Admin: 12/20/19 10:04 Dose: 200 mls/hr Documented by: Sodium Chloride (1/2 Normal Saline) 1,000 mls @ 75 mls/hr IV ASDIR [facility] Last Admin: 12/20/19 12:20 Dose: 75 mls/hr Documented by: Insulin Aspart (Novolog Vial Sliding Scale -) 1 vial SQ ACHS [facility]; Protocol Last Admin: 12/20/19 12:20 Dose: 2 units Documented by: Methylprednisolone Sodium Succinate (Solu-Medrol -) 40 mg IVPUSH BID [facility] Last Admin: 12/20/19 10:04 Dose: 40 mg Documented by: Nystatin (Mycostatin Cream -) 1 applic TP BID [facility] Last Admin: 12/20/19 10:04 Dose: 1 applic Documented by: Pantoprazole Sodium (Protonix Iv) 40 mg IVPUSH DAILY [facility] Last Admin: 12/20/19 10:04 Dose: 40 mg Documented by: Zinc Sulfate (Orazinc -) 220 mg NGT BID [facility] Last Admin: 12/20/19 10:04 Dose: 220 mg Documented by: - Objective Vital Signs: Vital Signs Temperature 96.0 F L 12/20/19 10:00 Pulse Rate 79 12/20/19 10:00 Respiratory Rate 32 H 12/20/19 12:41 Blood Pressure 118/70 12/20/19 10:00 O2 Sat by Pulse Oximetry (%) 98 12/20/19 10:00 Constitutional: Yes: Calm Eyes: Yes: Conjunctiva Clear HENT: Yes: Atraumatic Neck: Yes: Supple Cardiovascular: Yes: S1, S2 Respiratory: Yes: Mechanically Ventilated Gastrointestinal: Yes: Soft Genitourinary: Yes: [place] Present Musculoskeletal: Yes: Muscle Weakness Edema: No Integumentary: Yes: WNL Neurological: Yes: Lethargy Labs: CBC, BMP 12/20/19 06:00 12/20/19 06:00 INR, PTT INR 0.92 (0.83-1.09) 12/05/19 06:15 - ....Imaging Chest X-ray: Report Reviewed Problem List - Problems (1) NELLIE (acute kidney injury) Code(s): N17.9 - ACUTE KIDNEY FAILURE, UNSPECIFIED (2) Acute respiratory failure Code(s): J96.00 - ACUTE RESPIRATORY FAILURE, UNSP W HYPOXIA OR HYPERCAPNIA Qualifiers: Respiratory failure complication: hypoxia Qualified Code(s): J96.01 - Acute respiratory failure with hypoxia (3) COVID-19 Code(s): U07.1 - COVID POSITIVE Assessment/Plan Current Medications Generic Name Dose Route Start Last Admin Trade Name Freq PRN Reason Stop Dose Admin Albuterol Sulfate 2 puff 12/15/19 04:44 Ventolin Hfa Inhaler - IH Q4H PRN SHORT OF BREATH/WHEEZING Amino Acids 30 ml 12/18/19 17:30 12/20/19 10:04 Prosource No Carb Liquid Pkt PO 30 ml BID@0800,1730 [facility] Administration Artificial Tears 1 drop 12/15/19 09:04 12/19/19 11:30 Artificial Tears OU 1 drop TID PRN Administration Dry eyes Ascorbic Acid 250 mg 12/15/19 22:00 12/20/19 10:04 Vitamin C Oral Solution - NGT 250 mg BID [facility] Administration Chlorhexidine Gluconate 1 applic 12/15/19 22:00 12/19/19 21:12 Hibiclens For Decolonization - TP 1 applic HS [facility] Administration Cholecalciferol 1,000 unit 12/16/19 10:00 12/20/19 10:04 Vitamin D3 Oral Solution - GT 1,000 units DAILY [facility] Administration Enoxaparin Sodium 80 mg 12/15/19 10:00 12/20/19 10:04 Lovenox - SQ 80 mg BID [facility] Administration Propofol 1,000,000 mcg in 100 mls @ 2.395 mls/hr 12/15/19 03:45 12/20/19 04:00 Diprivan - IVPB 50 mcg/kg/min TITR [facility] 23.95 mls/hr Administration Protocol 5 MCG/KG/MIN Midazolam HCl 100 mg/ Sodium 100 mls @ 1 mls/hr 12/15/19 04:00 12/20/19 04:00 Chloride IVPB 8 mg/hr TITR [facility] 8 mls/hr Administration Protocol 1 MG/HR Vecuronium [place] 100 mg in 100 mls @ 4.79 mls/hr 12/15/19 04:15 12/20/19 04:23 Vecuronium [place] IVPB Not Given TITR [facility] 1 MCG/KG/MIN Fentanyl 500 mcg in 100 mls @ 15.966 mls/hr 12/17/19 11:30 12/20/19 05:39 Sublimaze Ivpb IVPB 1.25 mcg/kg/hr TITR [facility] 20 mls/hr Administration Protocol 1 MCG/KG/HR Cefepime HCl 2 gm/ Sodium 100 mls @ 200 mls/hr 12/18/19 18:00 12/20/19 10:04 Chloride IVPB 200 mls/hr Q8H-IV [facility] Administration Protocol Sodium Chloride 1,000 mls @ 75 mls/hr 12/20/19 10:30 12/20/19 12:20 1/2 Normal Saline IV 75 mls/hr ASDIR [facility] Administration Insulin Aspart 1 vial 12/15/19 07:00 12/20/19 12:20 Novolog Vial Sliding Scale - SQ 2 units ACHS [facility] Administration Protocol Methylprednisolone Sodium Succinate 40 mg 12/15/19 10:00 12/20/19 10:04 Solu-Medrol - IVPUSH 40 mg BID [facility] Administration Nystatin 1 applic 12/18/19 12:00 12/20/19 10:04 Mycostatin Cream - TP 1 applic BID [facility] Administration Pantoprazole Sodium 40 mg 12/16/19 10:00 12/20/19 10:04 Protonix Iv IVPUSH 40 mg DAILY [facility] Administration Zinc Sulfate 220 mg 12/15/19 22:00 12/20/19 10:04 Orazinc - NGT 220 mg BID [facility] Administration Impression 1. NELLIE 2. covid 3. resp failure requiring intubation 4. dm 5. htn 6. gastroparesis 7. sepsis 8. elevated vanco level Plan - change fluids to 1/2 ns - cont to hydrate - reglan trial today for elevated residuals - hold vanco and repeat level in am - cont to monitor renal function - cont vent support - discussed with ICU team - monitor oxygen level - avoid nephrotoxins - will follow pt - treat potassium medically
--- NOTE | 2019-12-20 13:12 | EKG ---
Test Reason : Blood Pressure : / mmHG Vent. 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
[2019-12-20 15:04] LABS: BLOOD UREA NITROGEN 66.2 mg/dL (7-18); CALCIUM 8.3 mg/dL (8.5-10.1); CREATININE 1.6 mg/dL (0.55-1.3); POTASSIUM 5.4 mmol/L (3.5-5.1)
[2019-12-20] MEDS ORDERED: MIDAZOLAM IN 0.9 % SOD.CHLORID 1 MG/1 ML PLAST..BAG ONE ×2 (18:24→20:48)
[2019-12-20] MEDS ORDERED: FENTANYL NS IVPB 500 MCG/100 ML BAG IVPB ONE (20:48)
[2019-12-20] MEDS: CHLORHEXIDINE GLUCONATE 4% CLEANSER FOR DECOLONIZATION TP SCH (21:17)
[2019-12-21] MEDS: CEFEPIME 2 GM in SODIUM CHLORIDE 100 ML IVPB SCH ×3 (02:45→17:46)
[2019-12-21] MEDS: PROPOFOL 1,000,000 MCG/100 ML VIAL IVPB SCH ×3 (04:00→12:30)
[2019-12-21] MEDS: MIDAZOLAM 100 MG in SODIUM CHLORIDE 100 ML IVPB SCH ×2 (04:00→13:00)
[2019-12-21] MEDS: VECURONIUM BROMIDE 100 MG/100 ML BAG IVPB SCH (04:00)
[2019-12-21] MEDS: INSULIN SLIDING SCALE (NOVOLOG) 1 VIAL SQ SCH ×4 (06:18→22:27)
--- NOTE | 2019-12-21 06:41 | PN ---
Physical Exam: SUBJECTIVE: Patient seen and examined. No acute events overnight. Was satting 96%. OBJECTIVE: Vital Signs Period Temp Pulse Resp BP Sys/Aguilar Pulse Ox Last 24 Hr 96.0 F-97.4 F 79-111 25-32 109-151/61-80 92-100 Physical exam as per Dr. Otoole due to limited PPE. GENERAL: Intubated and sedated. HEENT: NCAT, ETT in place. CARDIAC: Tachycardic. Regular rhythm, S1, S2 present, no murmurs. RESPIRATORY: b/l rhonchi GI: soft, non-distended, bowel sounds present EXTREMITIES: no edema. Laboratory Last Values WBC 11.5 K/mm3 (4.0-10.0) H 12/21/19 06:00 RBC 3.31 M/mm3 (3.60-5.2) L 12/21/19 06:00 Hgb 8.6 GM/dL (10.7-15.3) L 12/21/19 06:00 Hct 27.1 % (32.4-45.2) L 12/21/19 06:00 MCV 81.9 fl (80-96) 12/21/19 06:00 MCH 25.9 pg (25.7-33.7) 12/21/19 06:00 MCHC 31.7 g/dl (32.0-36.0) L 12/21/19 06:00 RDW 15.0 % (11.6-15.6) 12/21/19 06:00 Plt Count 211 K/MM3 (134-434) 12/21/19 06:00 MPV 8.4 fl (7.5-11.1) 12/21/19 06:00 Absolute Neuts (auto) 10.6 K/mm3 (1.5-8.0) H 12/21/19 06:00 Total Counted 100 12/15/19 02:03 Neutrophils % 92.0 % (42.8-82.8) H 12/21/19 06:00 Neutrophils % (Manual) 92.8 % (42.8-82.8) H 12/21/19 06:00 Band Neutrophils % 0.0 % 12/21/19 06:00 Lymphocytes % 3.1 % (8-40) L D 12/21/19 06:00 Lymphocytes % (Manual) 2.0 % (8-40) L D 12/21/19 06:00 Monocytes % 4.5 % (3.8-10.2) 12/21/19 06:00 Monocytes % (Manual) 2 % (3.8-10.2) L D 12/21/19 06:00 Eosinophils % 0.1 % (0-4.5) 12/21/19 06:00 Eosinophils % (Manual) 0.0 % (0-4.5) 12/21/19 06:00 Basophils % 0.3 % (0-2.0) 12/21/19 06:00 Basophils % (Manual) 0.0 % (0-2.0) 12/21/19 06:00 Myelocytes % (Man) 2 % (0-2) D 12/21/19 06:00 Promyelocytes % (Man) 0 % (0-2) 12/21/19 06:00 Blast Cells % (Manual) 0 % (0-0) 12/21/19 06:00 Nucleated RBC % 0 % (0-0) 12/21/19 06:00 Metamyelocytes 0 % (0-2) D 12/21/19 06:00 Hypochromia 0 12/21/19 06:00 Platelet Estimate Normal 12/21/19 06:00 Platelet Comment Present 12/20/19 06:00 Platelet Comment No clumping noted 12/15/19 02:03 Polychromasia 1+ 12/21/19 06:00 Poikilocytosis 1+ 12/21/19 06:00 Basophilic Stippling 1+ 12/21/19 06:00 Anisocytosis 1+ 12/21/19 06:00 Microcytosis 1+ 12/21/19 06:00 Macrocytosis 0 12/21/19 06:00 Tear Drop Cells 1+ 12/21/19 06:00 Whiteclay Cells 1+ 12/21/19 06:00 ESR 116 mm/hr (0-20) H 12/21/19 06:00 PT with INR 10.80 SEC (9.7-13.0) 12/05/19 06:15 INR 0.92 (0.83-1.09) 12/05/19 06:15 PTT (Actin FS) 29.2 SECONDS (25.2-36.5) 12/05/19 06:15 D-Dimer 1194 ng/ml (0-500) H 12/21/19 06:00 Anticoagulation Therapy No Result Required. 12/18/19 09:25 Puncture Site Right radial 12/18/19 09:25 Patient Temperature No Result Required. 12/18/19 09:25 ABG pH 7.207 (7.350-7.450) L 12/18/19 09:25 ABG pCO2 63.00 mmHg (35-45) H 12/18/19 09:25 ABG pO2 107.7 mmHg (80-100) H 12/18/19 09:25 ABG HCO3 24.5 mmol/L (22-27) 12/18/19 09:25 ABG O2 Sat (Measured) 96.7 mmHg (95-98) 12/18/19 09:25 ABG O2 Content No Result Required. 12/18/19 09:25 ABG Base Excess -3.9 mmol/L (-2-2) L 12/18/19 09:25 John Paul Test Positive 12/18/19 09:25 Patient On Oxygen Yes 12/18/19 09:25 O2 Delivery Device V 12/18/19 09:25 Oxygen Flow Rate 80 12/18/19 09:25 Vent Mode 12/18/19 09:25 Vent Rate 28 12/18/19 09:25 Mechanical Rate Ac 12/18/19 09:25 PEEP 9.0 cmH2O 12/18/19 09:25 Pressure Support Vent 350 12/18/19 09:25 Sodium 139 mmol/L (136-145) 12/21/19 06:00 Potassium 5.6 mmol/L (3.5-5.1) H 12/21/19 06:00 Chloride 110 mmol/L (98-107) H 12/21/19 06:00 Carbon Dioxide 20 mmol/L (21-32) L 12/21/19 06:00 Anion Gap 8 MMOL/L (8-16) 12/21/19 06:00 BUN 71.3 mg/dL (7-18) H 12/21/19 06:00 Creatinine 1.6 mg/dL (0.55-1.3) H 12/21/19 06:00 Est GFR (CKD-EPI)AfAm 43.71 12/21/19 06:00 Est GFR (CKD-EPI)NonAf 37.71 12/21/19 06:00 POC Glucometer 243 UNITS (80-120) 12/21/19 11:23 Random Glucose 285 mg/dL (74-106) H 12/21/19 06:00 Hemoglobin A1c % < 3.5 % (4.2-6.3) L 12/05/19 12:01 Lactic Acid 0.9 mmol/L (0.4-2.0) 12/05/19 15:14 Calcium 8.1 mg/dL (8.5-10.1) L 12/21/19 06:00 Phosphorus 6.3 mg/dL (2.5-4.9) H 12/21/19 06:00 Magnesium 2.9 mg/dL (1.8-2.4) H 12/21/19 06:00 Ferritin 249.3 ng/ml (8-388) 12/18/19 05:30 Total Bilirubin 0.3 mg/dL (0.2-1) 12/21/19 06:00 Direct Bilirubin 0.1 mg/dL (0.0-0.2) 12/16/19 05:30 AST 19 U/L (15-37) 12/21/19 06:00 ALT 29 U/L (13-61) 12/21/19 06:00 Alkaline Phosphatase 181 U/L (45-117) H 12/21/19 06:00 LD Total 379 U/L (84-246) H 12/21/19 06:00 Troponin I < 0.02 ng/ml (0.00-0.05) 12/05/19 06:15 C-Reactive Protein 7.9 MG/DL (0.00-0.3) H 12/21/19 06:00 B-Natriuretic Peptide 624.4 pg/ml (5-125) H 12/15/19 11:18 Total Protein 5.6 g/dl (6.4-8.2) L 12/21/19 06:00 Albumin 1.3 g/dl (3.4-5.0) L 12/21/19 06:00 Beta-Hydroxybutyrate 29.7 mg/dL (0.2-2.8) H 12/05/19 12:01 Beta HCG, Quant Cancelled 12/05/19 06:15 Serum , Qual Negative 12/05/19 08:00 Urine Color Yellow 12/20/19 06:00 Urine Appearance Cloudy 12/20/19 06:00 Urine pH 5.0 (5.0-8.0) 12/20/19 06:00 Ur Specific [place] 1.014 (1.010-1.035) 12/20/19 06:00 Urine Protein 1+ (NEGATIVE) H 12/20/19 06:00 Urine Glucose (UA) Negative (NEGATIVE) 12/20/19 06:00 Urine Ketones Negative (NEGATIVE) 12/20/19 06:00 Urine Blood Negative (NEGATIVE) 12/20/19 06:00 Urine Nitrite Negative (NEGATIVE) 12/20/19 06:00 Urine Bilirubin Negative (NEGATIVE) 12/20/19 06:00 Urine Urobilinogen 0.2 mg/dL (0.2-1.0) 12/20/19 06:00 Ur Leukocyte Esterase Negative (NEGATIVE) 12/20/19 06:00 Urine WBC (Auto) 598 /uL (0-25.8) 12/05/19 05:49 Urine RBC (Auto) 13 /uL (0-23.9) 12/05/19 05:49 Urine Casts (Auto) 1 /uL (0-3.1) 12/20/19 06:00 U Epithel Cells (Auto) 14 /uL (0-25.1) 12/20/19 06:00 Urine Bacteria (Auto) 5 /uL (0-1359) 12/20/19 06:00 Ur Random Creatinine 26.0 mg/dL (30-150) L 12/20/19 06:00 Ur Random Sodium 53 MMOL/L (40-220) 12/20/19 06:00 Ur Random Potassium 11.0 MMOL/L (25-125) L 12/20/19 06:00 Ur Random Chloride 44 MMOL/L (110-250) L 12/20/19 06:00 Random Vancomycin 27.6 ug/ml (5-26) H 12/21/19 06:00 Vancomycin Pre-Dose 37.3 ug/ml (5-10) H* 12/19/19 12:00 COVID-19 (BULMARO) Detected (Not Detected) H 12/05/19 06:15 Hep A IgM Ab Confirm Negative (Negative) 12/05/19 19:15 Hep Bs Antigen Negative (Negative) 12/05/19 19:15 Hep B Core IgM Ab Negative (Negative) 12/05/19 19:15 Hepatitis C Ab (EIA) <0.1 s/co ratio (0.0-0.9) 12/05/19 19:15 SARS-CoV-2 Ab Interp Non-reactive (NONREACTIVE) 12/05/19 11:05 Blood Type O POSITIVE 12/14/19 18:35 Antibody Screen Negative 12/14/19 18:35 Active Medications Albuterol Sulfate (Ventolin Hfa Inhaler -) 2 puff IH Q4H PRN PRN Reason: SHORT OF BREATH/WHEEZING Amino Acids (Prosource No Carb Liquid Pkt) 30 ml PO BID@0800,1730 [facility] Last Admin: 12/20/19 17:24 Dose: 30 ml Documented by: Artificial Tears (Artificial Tears) 1 drop OU TID PRN PRN Reason: Dry eyes Last Admin: 12/19/19 11:30 Dose: 1 drop Documented by: Ascorbic Acid (Vitamin C Oral Solution -) 250 mg NGT BID [facility] Last Admin: 12/20/19 21:18 Dose: 250 mg Documented by: Chlorhexidine Gluconate (Hibiclens For Decolonization -) 1 applic TP HS [facility] Last Admin: 12/20/19 21:17 Dose: 1 applic Documented by: Cholecalciferol (Vitamin D3 Oral Solution -) 1,000 unit GT DAILY [facility] Last Admin: 12/20/19 10:04 Dose: 1,000 units Documented by: Enoxaparin Sodium (Lovenox -) 80 mg SQ BID [facility] Last Admin: 12/20/19 21:17 Dose: 80 mg Documented by: Propofol (Diprivan -) 1,000,000 mcg in 100 mls @ 2.395 mls/hr IVPB TITR [facility]; Protocol Last Admin: 12/21/19 04:00 Dose: 50 mcg/kg/min, 23.95 mls/hr Documented by: Midazolam HCl 100 mg/ Sodium (Chloride) 100 mls @ 1 mls/hr IVPB TITR [facility]; Protocol Last Admin: 12/21/19 04:00 Dose: 9 mg/hr, 9 mls/hr Documented by: Vecuronium [place] (Vecuronium [place]) 100 mg in 100 mls @ 4.79 mls/hr IVPB TITR [facility] Last Admin: 12/21/19 04:00 Dose: Not Given Documented by: Fentanyl (Sublimaze Ivpb) 500 mcg in 100 mls @ 15.966 mls/hr IVPB TITR [facility]; Protocol Last Admin: 12/20/19 21:19 Dose: 0.94 mcg/kg/hr, 15 mls/hr Documented by: Cefepime HCl 2 gm/ Sodium (Chloride) 100 mls @ 200 mls/hr IVPB Q8H-IV [facility]; Protocol Last Admin: 12/21/19 02:45 Dose: 200 mls/hr Documented by: Sodium Chloride (1/2 Normal Saline) 1,000 mls @ 75 mls/hr IV ASDIR [facility] Last Admin: 12/20/19 12:20 Dose: 75 mls/hr Documented by: Insulin Aspart (Novolog Vial Sliding Scale -) 1 vial SQ ACHS [facility]; Protocol Last Admin: 12/21/19 06:18 Dose: 6 units Documented by: Methylprednisolone Sodium Succinate (Solu-Medrol -) 40 mg IVPUSH BID [facility] Last Admin: 12/20/19 21:20 Dose: 40 mg Documented by: Nystatin (Mycostatin Cream -) 1 applic TP BID [facility] Last Admin: 12/20/19 21:18 Dose: 1 applic Documented by: Pantoprazole Sodium (Protonix Iv) 40 mg IVPUSH DAILY [facility] Last Admin: 12/20/19 10:04 Dose: 40 mg Documented by: Zinc Sulfate (Orazinc -) 220 mg NGT BID [facility] Last Admin: 12/20/19 21:18 Dose: 220 mg Documented by: ASSESSMENT/PLAN: 49 yo Female with PMH DM, HTN, gastroparesis presented to ED with shortness of breath and is admitted to ICU for COVID pneumonitis. Pt was desaturating ~80% on NRB and tachypneic RR 40 and using accessory muscles. Pt was placed on HFOT, but further desaturated SpO2 ~70%. Pt was not able to sustain SpO2 greater than 88% and thus, decision made to intubate. Pt had rising WBC. Pt completed remdesevir regimen, received C-plasma, regimen of roephin/azithromycin and is currently on Cefepime. ABG showed respiratory acidosis. Inflammatory markers increasing. Neuro - Sedated on propofol 50, midazolam 9, fentanyl 75 - c/w vecuronium for paralysis Cardio h/o HTN - No home meds for HTN. - Monitor and maintain MAP>65 - Monitor and transfuse if Hb<7 Pulmonary COVID pneumonitis - c/w albuterol, ipratropium bromide, methylprednisolone 40 BID - c/w Lovenox 80 BID - Vent: AC/VC 28/350/100%/10, maintain PPlat <30. Pplat 24.6. If pt sats >95%, can decrease FiO2 incrementally. - CXR showed b/l congestive and infiltrative changes - ABG showed respiratory acidosis. Repeat ABG done after increasing RR of vent showed improvement, however, still respiratory acidosis. - monitor inflammatory markers GI h/o gastroparesis -Start Reglan for high residuals Endo h/o DM - ISS + BGM Renal Hyperkalemia NELLIE -Diuresis for net negative -Nephrology consulted. Cr 1.7. Recommended f/u BMP, continue 1/2 NS @ 75. Treat hyperkalemia medically. If K+ improves, switch 1/2 NS to LR. -Monitor I/O's, Cr ID COVID pneumonitis - c/w Vitamin C, D, Zinc - ID consulted. Pt completed 5 days Remdesevir. Received c-plasma. Completed rocephin/azithromycin. Recommended c/w cefepime (day 7). D/C vancomycin. Random vanc level 27.6 - c/w trending inflammatory markers. Inflammatory markers increasing. - Bcx negative thus far. Ucx negative. Sputum culture grew Enterococcus faecalis and yeast-like organism. - Considered tocilizumab, however, due to positive sputum culture, unable to suppress immune system - c/w topical nystatin cream for skin PPX - DVT: Lovenox 80 BID - GI : PPI 40 IV qD FEN - 1/2 NS @ 75 - Monitor and replete electrolytes as needed - Continue tube feeds (Promote) LTD - LIJ 12/20 Day 1 - ETT 12/14 Day 7 - [place] Family discussion: Spoke to Ethel (sister) and Maury (pt's ) over the phone about pt's status. Dispo: Continue to monitor in the ICU. Visit type - Emergency Visit Emergency Visit: Yes ED Registration Date: 12/05/19 Care time: The patient presented to the Emergency Department on the above date and was hospitalized for further evaluation of their emergent condition. - New Patient This patient is new to me today: No - Critical Care Critical Care patient: Yes Total Critical Care Time (in minutes): 40 Critical Care Statement: The care of this patient involved high complexity decision making to prevent further life threatening deterioration of the patient's condition and/or to evaluate & treat vital organ system(s) failure or risk of failure. ATTENDING PHYSICIAN STATEMENT I saw and evaluated the patient. I reviewed the resident's note and discussed the case with the resident. I agree with the resident's findings and plan as documented. SUBJECTIVE: OBJECTIVE: ASSESSMENT AND PLAN:
[2019-12-21 07:12] LABS: ALBUMIN 1.3 g/dl (3.4-5.0); BILIRUBIN,TOTAL 0.3 mg/dL (0.2-1); BLOOD UREA NITROGEN 71.3 mg/dL (7-18); CALCIUM 8.1 mg/dL (8.5-10.1); CREATININE 1.6 mg/dL (0.55-1.3); MAGNESIUM 2.9 mg/dL (1.8-2.4); PHOSPHOROUS 6.3 mg/dL (2.5-4.9); POTASSIUM 5.6 mmol/L (3.5-5.1); TOT PROT 5.6 g/dl (6.4-8.2)
[2019-12-21 07:15] LABS: BASO % 0.3 % (0-2.0); EOS % 0.1 % (0-4.5); HEMATOCRIT 27.1 % (32.4-45.2); HEMOGLOBIN 8.6 GM/dL (10.7-15.3); LYMPH % 3.1 % (8-40); MCH 25.9 pg (25.7-33.7); MCHC 31.7 g/dl (32.0-36.0); MEAN CELL VOLUME 81.9 fl (80-96); MEAN PLT VOLUME 8.4 fl (7.5-11.1); MONO % 4.5 % (3.8-10.2); PLATELET COUNT 211 K/MM3 (134-434); RBC 3.31 M/mm3 (3.60-5.2); WHITE BLOOD COUNT 11.5 K/mm3 (4.0-10.0)
[2019-12-21] MEDS: SODIUM CHLORIDE 0.45% 1,000 ML IV SCH ×2 (09:00→15:00)
[2019-12-21] MEDS: AMINO ACIDS/PROTEIN HYDROLYS 30 ML LIQUID.PKT PO SCH ×2 (09:01→17:46)
[2019-12-21 09:56] LABS: ANISOCYTOSIS 1+; MACROCYTOSIS 0; PLATELET ESTIMATE NORMAL; TEAR DROP CELLS 1+
[2019-12-21] MEDS: ENOXAPARIN NA (PORCINE) 80 MG/0.8 ML DISP.SYRIN SQ SCH ×2 (10:04→21:50)
[2019-12-21] MEDS ORDERED: PT OWN MED DRAWER 7, Y5N ONE ×3 (10:05→19:29)
[2019-12-21] MEDS: ZINC SULFATE 220 MG CAPSULE (FP) NGT SCH ×2 (10:11→21:51)
[2019-12-21] MEDS: methylPREDNISolone NA SUCC 40 MG/1 ML VIAL IVPUSH SCH ×2 (10:11→21:51)
[2019-12-21] MEDS: PANTOPRAZOLE SODIUM 40 MG VIAL IVPUSH SCH (10:11)
[2019-12-21] MEDS ORDERED: SODIUM ZIRCONIUM CYCLOSILICATE (LOKELMA) 5 GM PACKET PO ONE (10:26)
[2019-12-21] MEDS: FENTANYL IVPB 500 MCG/100 ML BAG IVPB SCH ×2 (11:54→12:00)
[2019-12-21] MEDS: ASCORBIC ACID 500 MG/5 ML UNIT DOSE CUP NGT SCH ×2 (12:00→21:52)
[2019-12-21] MEDS ORDERED: METOCLOPRAMIDE HCL INJECTION 10 MG/2 ML VIAL IVPUSH ONE (12:15)
[2019-12-21] MEDS ORDERED: FUROSEMIDE 40 MG/4 ML INJECTABLE VIAL IVPUSH ONE (12:15)
--- NOTE | 2019-12-21 12:46 | PN ---
Teaching Attending Note Name of Resident: Sandi Jaimes ATTENDING PHYSICIAN STATEMENT I saw and evaluated the patient. I reviewed the resident's note and discussed the case with the resident. I agree with the resident's findings and plan as documented. SUBJECTIVE: Patient seen and examined in the ICU. Remains intubated and sedated. AC mode of vent, 100% FiO2. No pressors. PPlat : 26 Inflammatory markers are increasing. Intake & Output 12/18/19 12/19/19 12/20/19 12/21/19 23:59 23:59 23:59 23:59 Intake Total 4592.6 2898.8 3748 2015 Output Total 2099 1900 1750 400 Balance 2492.6 998.8 1998 1616 Last Vital Signs Temp Pulse Resp BP Pulse Ox 97.1 F L 115 H 28 H 133/64 91 L 12/21/19 10:00 12/21/19 10:00 12/21/19 10:00 12/21/19 10:00 12/21/19 10:00 Active Medications Albuterol Sulfate (Ventolin Hfa Inhaler -) 2 puff IH Q4H PRN PRN Reason: SHORT OF BREATH/WHEEZING Amino Acids (Prosource No Carb Liquid Pkt) 30 ml PO BID@0800,1730 [facility] Last Admin: 12/21/19 09:01 Dose: 30 ml Documented by: Artificial Tears (Artificial Tears) 1 drop OU TID PRN PRN Reason: Dry eyes Last Admin: 12/19/19 11:30 Dose: 1 drop Documented by: Ascorbic Acid (Vitamin C Oral Solution -) 250 mg NGT BID [facility] Last Admin: 12/20/19 21:18 Dose: 250 mg Documented by: Chlorhexidine Gluconate (Hibiclens For Decolonization -) 1 applic TP HS [facility] Last Admin: 12/20/19 21:17 Dose: 1 applic Documented by: Cholecalciferol (Vitamin D3 Oral Solution -) 1,000 unit GT DAILY [facility] Last Admin: 12/20/19 10:04 Dose: 1,000 units Documented by: Enoxaparin Sodium (Lovenox -) 80 mg SQ BID [facility] Last Admin: 12/21/19 10:04 Dose: 80 mg Documented by: Furosemide (Lasix Injection -) 20 mg IVPUSH ONCE ONE Stop: 12/21/19 12:16 Propofol (Diprivan -) 1,000,000 mcg in 100 mls @ 2.395 mls/hr IVPB TITR [facility]; Protocol Last Admin: 12/21/19 08:30 Dose: 50 mcg/kg/min, 23.95 mls/hr Documented by: Midazolam HCl 100 mg/ Sodium (Chloride) 100 mls @ 1 mls/hr IVPB TITR [facility]; Protocol Last Admin: 12/21/19 04:00 Dose: 9 mg/hr, 9 mls/hr Documented by: Vecuronium [place] (Vecuronium [place]) 100 mg in 100 mls @ 4.79 mls/hr IVPB TITR [facility] Last Titration: 12/21/19 11:12 Dose: 0.8 mcg/kg/min, 3.832 mls/hr Documented by: Fentanyl (Sublimaze Ivpb) 500 mcg in 100 mls @ 15.966 mls/hr IVPB TITR [facility]; Protocol Last Admin: 12/21/19 11:54 Dose: Not Given Documented by: Cefepime HCl 2 gm/ Sodium (Chloride) 100 mls @ 200 mls/hr IVPB Q8H-IV [facility]; Protocol Last Admin: 12/21/19 10:06 Dose: 200 mls/hr Documented by: Amino Acids (Clinimix -) 1,000 mls @ 40 mls/hr IV Q24H [facility] Sodium Chloride (1/2 Normal Saline) 1,000 mls @ 35 mls/hr IV ASDIR [facility] Insulin Aspart (Novolog Vial Sliding Scale -) 1 vial SQ ACHS [facility]; Protocol Last Admin: 12/21/19 06:18 Dose: 6 units Documented by: Insulin Detemir (Levemir Vial) 10 units SQ HS [facility] Methylprednisolone Sodium Succinate (Solu-Medrol -) 40 mg IVPUSH BID [facility] Last Admin: 12/21/19 10:11 Dose: 40 mg Documented by: Metoclopramide HCl (Reglan Injection -) 10 mg IVPUSH ONCE ONE Stop: 12/21/19 12:16 Nystatin (Mycostatin Cream -) 1 applic TP BID [facility] Last Admin: 12/20/19 21:18 Dose: 1 applic Documented by: Pantoprazole Sodium (Protonix Iv) 40 mg IVPUSH DAILY [facility] Last Admin: 12/21/19 10:11 Dose: 40 mg Documented by: Sodium Zirconium Cyclosilicate (Lokelma) 10 gm PO ONCE ONE Stop: 12/22/19 12:13 Zinc Sulfate (Orazinc -) 220 mg NGT BID [facility] Last Admin: 12/21/19 10:11 Dose: 220 mg Documented by: GEN: intubated, sedated ENT: Sclera clear LUNGS: Vented, bilateral coarse rhonchi CV: S1S2, tachy RRR ABD: Soft, ND, NT+ bowel sounds, no guarding, no rebound EXT: WWP; no edema NEURO: Sedated Laboratory Results - last 24 hr 12/20/19 12/20/19 12/20/19 14:10 14:10 17:15 WBC RBC Hgb Hct MCV MCH MCHC RDW Plt Count MPV Absolute Neuts (auto) Neutrophils % Neutrophils % (Manual) Band Neutrophils % Lymphocytes % Lymphocytes % (Manual) Monocytes % Monocytes % (Manual) Eosinophils % Eosinophils % (Manual) Basophils % Basophils % (Manual) Myelocytes % (Man) Promyelocytes % (Man) Blast Cells % (Manual) Nucleated RBC % Metamyelocytes Hypochromia Platelet Estimate Polychromasia Poikilocytosis Basophilic Stippling Anisocytosis Microcytosis Macrocytosis Tear Drop Cells [place] Cells ESR D-Dimer Sodium 137 Potassium 5.4 H Chloride 108 H Carbon Dioxide 21 Anion Gap 9 BUN 66.2 H Creatinine 1.6 H Est GFR (CKD-EPI)AfAm 43.71 Est GFR (CKD-EPI)NonAf 37.71 POC Glucometer 370 Random Glucose 308 H Calcium 8.3 L Phosphorus Magnesium Total Bilirubin AST ALT Alkaline Phosphatase LD Total C-Reactive Protein Total Protein Albumin Random Vancomycin 33.5 H* 12/20/19 12/21/19 12/21/19 22:09 06:00 06:00 WBC 11.5 H RBC 3.31 L Hgb 8.6 L Hct 27.1 L MCV 81.9 MCH 25.9 MCHC 31.7 L RDW 15.0 Plt Count 211 MPV 8.4 Absolute Neuts (auto) 10.6 H Neutrophils % 92.0 H Neutrophils % (Manual) 92.8 H Band Neutrophils % 0.0 Lymphocytes % 3.1 L D Lymphocytes % (Manual) 2.0 L D Monocytes % 4.5 Monocytes % (Manual) 2 L D Eosinophils % 0.1 Eosinophils % (Manual) 0.0 Basophils % 0.3 Basophils % (Manual) 0.0 Myelocytes % (Man) 2 D Promyelocytes % (Man) 0 Blast Cells % (Manual) 0 Nucleated RBC % 0 Metamyelocytes 0 D Hypochromia 0 Platelet Estimate Normal Polychromasia 1+ Poikilocytosis 1+ Basophilic Stippling 1+ Anisocytosis 1+ Microcytosis 1+ Macrocytosis 0 Tear Drop Cells 1+ Len Cells 1+ ESR D-Dimer Sodium Potassium Chloride Carbon Dioxide Anion Gap BUN Creatinine Est GFR (CKD-EPI)AfAm Est GFR (CKD-EPI)NonAf POC Glucometer 306 Random Glucose Calcium Phosphorus Magnesium Total Bilirubin AST ALT Alkaline Phosphatase LD Total C-Reactive Protein Total Protein Albumin Random Vancomycin 27.6 H 12/21/19 12/21/19 12/21/19 06:00 06:00 06:00 WBC RBC Hgb Hct MCV MCH MCHC RDW Plt Count MPV Absolute Neuts (auto) Neutrophils % Neutrophils % (Manual) Band Neutrophils % Lymphocytes % Lymphocytes % (Manual) Monocytes % Monocytes % (Manual) Eosinophils % Eosinophils % (Manual) Basophils % Basophils % (Manual) Myelocytes % (Man) Promyelocytes % (Man) Blast Cells % (Manual) Nucleated RBC % Metamyelocytes Hypochromia Platelet Estimate Polychromasia Poikilocytosis Basophilic Stippling Anisocytosis Microcytosis Macrocytosis Tear Drop Cells [place] Cells ESR 116 H D-Dimer Sodium 139 Potassium 5.6 H Chloride 110 H Carbon Dioxide 20 L Anion Gap 8 BUN 71.3 H Creatinine 1.6 H Est GFR (CKD-EPI)AfAm 43.71 Est GFR (CKD-EPI)NonAf 37.71 POC Glucometer Random Glucose 285 H Calcium 8.1 L Phosphorus 6.3 H Magnesium 2.9 H Total Bilirubin 0.3 AST 19 ALT 29 Alkaline Phosphatase 181 H LD Total 379 H C-Reactive Protein 7.9 H Total Protein 5.6 L Albumin 1.3 L Random Vancomycin 12/21/19 12/21/19 12/21/19 06:00 06:04 11:23 WBC RBC Hgb Hct MCV MCH MCHC RDW Plt Count MPV Absolute Neuts (auto) Neutrophils % Neutrophils % (Manual) Band Neutrophils % Lymphocytes % Lymphocytes % (Manual) Monocytes % Monocytes % (Manual) Eosinophils % Eosinophils % (Manual) Basophils % Basophils % (Manual) Myelocytes % (Man) Promyelocytes % (Man) Blast Cells % (Manual) Nucleated RBC % Metamyelocytes Hypochromia Platelet Estimate Polychromasia Poikilocytosis Basophilic Stippling Anisocytosis Microcytosis Macrocytosis Tear Drop Cells [place] Cells ESR D-Dimer 1194 H Sodium Potassium Chloride Carbon Dioxide Anion Gap BUN Creatinine Est GFR (CKD-EPI)AfAm Est GFR (CKD-EPI)NonAf POC Glucometer 291 243 Random Glucose Calcium Phosphorus Magnesium Total Bilirubin AST ALT Alkaline Phosphatase LD Total C-Reactive Protein Total Protein Albumin Random Vancomycin ASSESSMENT/PLAN: Acute Respiratory Failure due to ARDS due to COVID19 Pneumonitis Capillary Leak Syndrome DM Hyperglycemia HTN Gastroparesis Sepsis PE ruled out NELLIE Conservative IVF LTVV; PPlat goal<30 Cont Dexamethasone Sedation for vent synchrony Full AC Strict Isolation and usage of Full PPE S/P Remdesivir x 5 days S/P Convalescent Plasma treatment Will not give Actemra due to active infectious process Vit C; Vitamin D; Zinc Strict I & O Replete electrolytes Dr Rivas Critical care time spent in reviewing chart, evaluating patient and formulating plan - 36 minutes.
[2019-12-21] MEDS: CHOLECALCIFEROL (VIT D SOLUTION) 400 UNIT/1 ML DROPS GT SCH (12:50)
[2019-12-21] MEDS: NYSTATIN 100,000 UNIT/GM TOPICAL CREAM 15 GM TUBE TP SCH ×2 (13:20→21:51)
[2019-12-21] MEDS: AMINO ACIDS 4.25%/D5W 1,000 ML IV SCH (15:00)
[2019-12-21] MEDS: ARTIFICIAL TEARS (POLYVINYL ALCOHOL) OPTH DROPS OU PRN ×2 (15:00→21:52)
[2019-12-21] MEDS ORDERED: MIDAZOLAM IN 0.9 % SOD.CHLORID 1 MG/1 ML PLAST..BAG ONE ×2 (15:15→21:26)
--- NOTE | 2019-12-21 15:27 | PN ---
Progress Note, Physician History of Present Illness: Pt seen and examined at bedside. She remains in the ICU. She remains intubated. - Current Medication List Current Medications: Active Medications Albuterol Sulfate (Ventolin Hfa Inhaler -) 2 puff IH Q4H PRN PRN Reason: SHORT OF BREATH/WHEEZING Amino Acids (Prosource No Carb Liquid Pkt) 30 ml PO BID@0800,1730 [facility] Last Admin: 12/21/19 09:01 Dose: 30 ml Documented by: Artificial Tears (Artificial Tears) 1 drop OU TID PRN PRN Reason: Dry eyes Last Admin: 12/19/19 11:30 Dose: 1 drop Documented by: Ascorbic Acid (Vitamin C Oral Solution -) 250 mg NGT BID [facility] Last Admin: 12/21/19 12:00 Dose: 250 mg Documented by: Chlorhexidine Gluconate (Hibiclens For Decolonization -) 1 applic TP HS [facility] Last Admin: 12/20/19 21:17 Dose: 1 applic Documented by: Cholecalciferol (Vitamin D3 Oral Solution -) 1,000 unit GT DAILY [facility] Last Admin: 12/21/19 12:50 Dose: 1,000 units Documented by: Enoxaparin Sodium (Lovenox -) 80 mg SQ BID [facility] Last Admin: 12/21/19 10:04 Dose: 80 mg Documented by: Propofol (Diprivan -) 1,000,000 mcg in 100 mls @ 2.395 mls/hr IVPB TITR [facility]; Protocol Last Admin: 12/21/19 12:30 Dose: 50 mcg/kg/min, 23.95 mls/hr Documented by: Midazolam HCl 100 mg/ Sodium (Chloride) 100 mls @ 1 mls/hr IVPB TITR [facility]; Protocol Last Admin: 12/21/19 04:00 Dose: 9 mg/hr, 9 mls/hr Documented by: Vecuronium [place] (Vecuronium [place]) 100 mg in 100 mls @ 4.79 mls/hr IVPB TITR [facility] Last Titration: 12/21/19 11:12 Dose: 0.8 mcg/kg/min, 3.832 mls/hr Documented by: Fentanyl (Sublimaze Ivpb) 500 mcg in 100 mls @ 15.966 mls/hr IVPB TITR [facility]; Protocol Last Admin: 12/21/19 12:00 Dose: 1.25 mcg/kg/hr, 20 mls/hr Documented by: Cefepime HCl 2 gm/ Sodium (Chloride) 100 mls @ 200 mls/hr IVPB Q8H-IV [facility]; Protocol Last Admin: 12/21/19 10:06 Dose: 200 mls/hr Documented by: Amino Acids (Clinimix -) 1,000 mls @ 40 mls/hr IV Q24H [facility] Last Admin: 12/21/19 15:00 Dose: 40 mls/hr Documented by: Sodium Chloride (1/2 Normal Saline) 1,000 mls @ 35 mls/hr IV ASDIR [facility] Last Admin: 12/21/19 15:00 Dose: 35 mls/hr Documented by: Insulin Aspart (Novolog Vial Sliding Scale -) 1 vial SQ [facility]; Protocol Last Admin: 12/21/19 12:00 Dose: 4 units Documented by: Insulin Detemir (Levemir Vial) 10 units SQ HS [facility] Methylprednisolone Sodium Succinate (Solu-Medrol -) 40 mg IVPUSH BID [facility] Last Admin: 12/21/19 10:11 Dose: 40 mg Documented by: Nystatin (Mycostatin Cream -) 1 applic TP BID [facility] Last Admin: 12/21/19 13:20 Dose: 1 applic Documented by: Pantoprazole Sodium (Protonix Iv) 40 mg IVPUSH DAILY [facility] Last Admin: 12/21/19 10:11 Dose: 40 mg Documented by: Sodium Zirconium Cyclosilicate (Lokelma) 10 gm PO ONCE ONE Stop: 12/22/19 12:13 Zinc Sulfate (Orazinc -) 220 mg NGT BID [facility] Last Admin: 12/21/19 10:11 Dose: 220 mg Documented by: - Objective Vital Signs: Vital Signs Temperature 96.9 F L 12/21/19 14:00 Pulse Rate 112 H 12/21/19 14:00 Respiratory Rate 28 H 12/21/19 14:00 Blood Pressure 125/67 12/21/19 14:00 O2 Sat by Pulse Oximetry (%) 95 12/21/19 14:00 Constitutional: Yes: Calm Eyes: Yes: Conjunctiva Clear HENT: Yes: Atraumatic Neck: Yes: Supple Cardiovascular: Yes: S1, S2 Respiratory: Yes: Mechanically Ventilated Gastrointestinal: Yes: Soft Genitourinary: Yes: [place] Present Musculoskeletal: Yes: Muscle Weakness Edema: Yes Edema: LLE: Trace, RLE: Trace Neurological: Yes: Lethargy Labs: CBC, BMP 12/21/19 06:00 12/21/19 06:00 INR, PTT INR 0.92 (0.83-1.09) 12/05/19 06:15 - ....Imaging Chest X-ray: Report Reviewed Problem List - Problems (1) NELLIE (acute kidney injury) Code(s): N17.9 - ACUTE KIDNEY FAILURE, UNSPECIFIED (2) Acute respiratory failure Code(s): J96.00 - ACUTE RESPIRATORY FAILURE, UNSP W HYPOXIA OR HYPERCAPNIA Qualifiers: Respiratory failure complication: hypoxia Qualified Code(s): J96.01 - Acute respiratory failure with hypoxia (3) COVID-19 Code(s): U07.1 - COVID POSITIVE Assessment/Plan Current Medications Generic Name Dose Route Start Last Admin Trade Name Freq PRN Reason Stop Dose Admin Albuterol Sulfate 2 puff 12/15/19 04:44 Ventolin Hfa Inhaler - IH Q4H PRN SHORT OF BREATH/WHEEZING Amino Acids 30 ml 12/18/19 17:30 12/21/19 09:01 Prosource No Carb Liquid Pkt PO 30 ml BID@0800,1730 [facility] Administration Artificial Tears 1 drop 12/15/19 09:04 12/19/19 11:30 Artificial Tears OU 1 drop TID PRN Administration Dry eyes Ascorbic Acid 250 mg 12/15/19 22:00 12/21/19 12:00 Vitamin C Oral Solution - NGT 250 mg BID [facility] Administration Chlorhexidine Gluconate 1 applic 12/15/19 22:00 12/20/19 21:17 Hibiclens For Decolonization - TP 1 applic HS [facility] Administration Cholecalciferol 1,000 unit 12/16/19 10:00 12/21/19 12:50 Vitamin D3 Oral Solution - GT 1,000 units DAILY [facility] Administration Enoxaparin Sodium 80 mg 12/15/19 10:00 12/21/19 10:04 Lovenox - SQ 80 mg BID [facility] Administration Propofol 1,000,000 mcg in 100 mls @ 2.395 mls/hr 12/15/19 03:45 12/21/19 12:30 Diprivan - IVPB 50 mcg/kg/min TITR [facility] 23.95 mls/hr Administration Protocol 5 MCG/KG/MIN Midazolam HCl 100 mg/ Sodium 100 mls @ 1 mls/hr 12/15/19 04:00 12/21/19 04:00 Chloride IVPB 9 mg/hr TITR [facility] 9 mls/hr Administration Protocol 1 MG/HR Vecuronium [place] 100 mg in 100 mls @ 4.79 mls/hr 12/15/19 04:15 12/21/19 11:12 Vecuronium [place] IVPB 0.8 mcg/kg/min TITR [facility] 3.832 mls/hr Titration 1 MCG/KG/MIN Fentanyl 500 mcg in 100 mls @ 15.966 mls/hr 12/17/19 11:30 12/21/19 12:00 Sublimaze Ivpb IVPB 1.25 mcg/kg/hr TITR [facility] 20 mls/hr Administration Protocol 1 MCG/KG/HR Cefepime HCl 2 gm/ Sodium 100 mls @ 200 mls/hr 12/18/19 18:00 12/21/19 10:06 Chloride IVPB 200 mls/hr Q8H-IV [facility] Administration Protocol Amino Acids 1,000 mls @ 40 mls/hr 12/21/19 12:15 12/21/19 15:00 Clinimix - IV 40 mls/hr Q24H [facility] Administration Sodium Chloride 1,000 mls @ 35 mls/hr 12/21/19 12:15 12/21/19 15:00 1/2 Normal Saline IV 35 mls/hr ASDIR [facility] Administration Insulin Aspart 1 vial 12/15/19 07:00 12/21/19 12:00 Novolog Vial Sliding Scale - SQ 4 units ACHS [facility] Administration Protocol Insulin Detemir 10 units 12/21/19 22:00 Levemir Vial SQ HS [facility] Methylprednisolone Sodium Succinate 40 mg 12/15/19 10:00 12/21/19 10:11 Solu-Medrol - IVPUSH 40 mg BID [facility] Administration Nystatin 1 applic 12/18/19 12:00 12/21/19 13:20 Mycostatin Cream - TP 1 applic BID [facility] Administration Pantoprazole Sodium 40 mg 12/16/19 10:00 12/21/19 10:11 Protonix Iv IVPUSH 40 mg DAILY [facility] Administration Sodium Zirconium Cyclosilicate 10 gm 12/22/19 12:12 Lokelma PO 12/22/19 12:13 ONCE ONE Zinc Sulfate 220 mg 12/15/19 22:00 12/21/19 10:11 Orazinc - NGT 220 mg BID [facility] Administration Impression 1. NELLIE 2. covid 3. resp failure requiring intubation 4. dm 5. htn 6. gastroparesis 7. sepsis 8. elevated vanco level Plan - cont vent support - change fluids to clinimix at 40 and 1/2 ns at 35 - give dose of lokelma - give 20 mg lasix - cont to monitor lytes - monitor urine output - discussed in detail with ICU team - cont ICU care - repeat ua shows improvement - cont trickle feeds
[2019-12-21 16:17] LABS: ARTERIAL BLD GAS O2 SATURATION 98.3 mmHg (95-98); ARTERIAL BLOOD GAS BASE EXCESS -11.6 mmol/L (-2-2); ARTERIAL BLOOD GAS PO2 160.9 mmHg (80-100)
[2019-12-21 16:37] LABS: ALLENS TEST POSITIVE
[2019-12-21 16:39] LABS: VENT MODE VOL/AC; VENT RATE 28
--- NOTE | 2019-12-21 17:47 | PROC ---
Central Line Insertion Indication: Sepsis Risks and Benefits Explained: Yes Consent on Chart: Yes Central Line: Triple Lumen Catheter Anesthesia: other Sterile Technique: Yes Ultrasound Guided Assistance: Yes Position: Left Internal Jugular Post Insertion: Yes: Bilateral Breath Sounds, Bilateral Chest Expansion, Chest X-Ray Ordered Sterile Dressing Applied: Yes Remarks: RIJ line placed 12/15/2019. Due to line being 7 days old, decision made to change to L side.
[2019-12-21 20:19] LABS: ARTERIAL BLD GAS O2 SATURATION 99.1 mmHg (95-98); ARTERIAL BLOOD GAS BASE EXCESS -12.3 mmol/L (-2-2); ARTERIAL BLOOD GAS PO2 208.1 mmHg (80-100)
[2019-12-21 20:22] LABS: ARTERIAL BLOOD GAS pH 7.152 (7.350-7.450)
[2019-12-21 20:23] LABS: VENT MODE A/C; VENT RATE 32
[2019-12-21] MEDS: CHLORHEXIDINE GLUCONATE 4% CLEANSER FOR DECOLONIZATION TP SCH (21:41)
[2019-12-21] MEDS ORDERED: INSULIN (LEVEMIR) 100 UNITS/ML UNITS SQ SCH (22:00)
[2019-12-22] MEDS: CEFEPIME 2 GM in SODIUM CHLORIDE 100 ML IVPB SCH ×2 (01:07→09:44)
[2019-12-22] MEDS: VECURONIUM BROMIDE 100 MG/100 ML BAG IVPB SCH (03:15)
[2019-12-22] MEDS: MIDAZOLAM 100 MG in SODIUM CHLORIDE 100 ML IVPB SCH (04:00)
[2019-12-22 05:26] LABS: ALLENS TEST POSITIVE; ARTERIAL BLD GAS O2 SATURATION 98.6 mmHg (95-98); ARTERIAL BLOOD GAS BASE EXCESS -12.6 mmol/L (-2-2); ARTERIAL BLOOD GAS PO2 170.1 mmHg (80-100)
[2019-12-22 05:27] LABS: VENT MODE A/C; VENT RATE 32
[2019-12-22 05:29] LABS: ARTERIAL BLOOD GAS pH 7.133 (7.350-7.450)
[2019-12-22] MEDS: PROPOFOL 1,000,000 MCG/100 ML VIAL IVPB SCH (05:38)
[2019-12-22 05:52] LABS: BASO % 0.1 % (0-2.0); EOS % 0.1 % (0-4.5); HEMATOCRIT 26.4 % (32.4-45.2); HEMOGLOBIN 8.2 GM/dL (10.7-15.3); LYMPH % 2.6 % (8-40); MCHC 31.2 g/dl (32.0-36.0); MEAN CELL VOLUME 83.3 fl (80-96); MEAN PLT VOLUME 8.6 fl (7.5-11.1); MONO % 3.5 % (3.8-10.2); NEUT % 93.7 % (42.8-82.8); PLATELET COUNT 190 K/MM3 (134-434); RBC 3.16 M/mm3 (3.60-5.2); RDW 15.3 % (11.6-15.6); WHITE BLOOD COUNT 12.1 K/mm3 (4.0-10.0)
[2019-12-22 06:33] LABS: ALBUMIN 1.3 g/dl (3.4-5.0); BILIRUBIN,TOTAL 0.3 mg/dL (0.2-1); BLOOD UREA NITROGEN 91.9 mg/dL (7-18); CALCIUM 8.2 mg/dL (8.5-10.1); CREATININE 2.3 mg/dL (0.55-1.3); MAGNESIUM 2.8 mg/dL (1.8-2.4); PHOSPHOROUS 7.5 mg/dL (2.5-4.9); TOT PROT 5.9 g/dl (6.4-8.2)
--- NOTE | 2019-12-22 06:50 | PN ---
Physical Exam: SUBJECTIVE: Patient seen and examined. Pt remained intubated and sedated. OBJECTIVE: Vital Signs Period Temp Pulse Resp BP Sys/Aguilar Pulse Ox Last 24 Hr 96.8 F-97.8 F 96-115 28-34 105-133/56-67 90-100 Physical exam as per Dr. Otoole due to limited PPE. GENERAL: Intubated and sedated. HEENT: NCAT, ETT in place. CARDIAC: Tachycardic. Regular rhythm, S1, S2 present, no murmurs. RESPIRATORY: b/l rhonchi GI: soft, non-distended, bowel sounds present EXTREMITIES: no edema. Laboratory Last Values WBC 12.1 K/mm3 (4.0-10.0) H 12/22/19 05:25 RBC 3.16 M/mm3 (3.60-5.2) L 12/22/19 05:25 Hgb 8.2 GM/dL (10.7-15.3) L 12/22/19 05:25 Hct 26.4 % (32.4-45.2) L 12/22/19 05:25 MCV 83.3 fl (80-96) 12/22/19 05:25 MCH 26.0 pg (25.7-33.7) 12/22/19 05:25 MCHC 31.2 g/dl (32.0-36.0) L 12/22/19 05:25 RDW 15.3 % (11.6-15.6) 12/22/19 05:25 Plt Count 190 K/MM3 (134-434) 12/22/19 05:25 MPV 8.6 fl (7.5-11.1) 12/22/19 05:25 Absolute Neuts (auto) 11.4 K/mm3 (1.5-8.0) H 12/22/19 05:25 Total Counted 100 12/15/19 02:03 Neutrophils % 93.7 % (42.8-82.8) H 12/22/19 05:25 Neutrophils % (Manual) 92.8 % (42.8-82.8) H 12/21/19 06:00 Band Neutrophils % 0.0 % 12/21/19 06:00 Lymphocytes % 2.6 % (8-40) L 12/22/19 05:25 Lymphocytes % (Manual) 2.0 % (8-40) L D 12/21/19 06:00 Monocytes % 3.5 % (3.8-10.2) L 12/22/19 05:25 Monocytes % (Manual) 2 % (3.8-10.2) L D 12/21/19 06:00 Eosinophils % 0.1 % (0-4.5) 12/22/19 05:25 Eosinophils % (Manual) 0.0 % (0-4.5) 12/21/19 06:00 Basophils % 0.1 % (0-2.0) 12/22/19 05:25 Basophils % (Manual) 0.0 % (0-2.0) 12/21/19 06:00 Myelocytes % (Man) 2 % (0-2) D 12/21/19 06:00 Promyelocytes % (Man) 0 % (0-2) 12/21/19 06:00 Blast Cells % (Manual) 0 % (0-0) 12/21/19 06:00 Nucleated RBC % 0 % (0-0) 12/22/19 05:25 Metamyelocytes 0 % (0-2) D 12/21/19 06:00 Hypochromia 0 12/21/19 06:00 Platelet Estimate Normal 12/21/19 06:00 Platelet Comment Present 12/20/19 06:00 Platelet Comment No clumping noted 12/15/19 02:03 Polychromasia 1+ 12/21/19 06:00 Poikilocytosis 1+ 12/21/19 06:00 Basophilic Stippling 1+ 12/21/19 06:00 Anisocytosis 1+ 12/21/19 06:00 Microcytosis 1+ 12/21/19 06:00 Macrocytosis 0 12/21/19 06:00 Tear Drop Cells 1+ 12/21/19 06:00 Herrick Cells 1+ 12/21/19 06:00 ESR 116 mm/hr (0-20) H 12/21/19 06:00 PT with INR 10.80 SEC (9.7-13.0) 12/05/19 06:15 INR 0.92 (0.83-1.09) 12/05/19 06:15 PTT (Actin FS) 29.2 SECONDS (25.2-36.5) 12/05/19 06:15 D-Dimer 1301 ng/ml (0-500) H 12/22/19 05:25 Anticoagulation Therapy No Result Required. 12/22/19 05:15 Puncture Site Left radial 12/22/19 05:15 Patient Temperature No Result Required. 12/22/19 05:15 ABG pH 7.133 (7.350-7.450) L* 12/22/19 05:15 ABG pCO2 48.80 mmHg (35-45) H 12/22/19 05:15 ABG pO2 170.1 mmHg (80-100) H 12/22/19 05:15 ABG HCO3 16.0 mmol/L (22-27) L 12/22/19 05:15 ABG O2 Sat (Measured) 98.6 mmHg (95-98) H 12/22/19 05:15 ABG O2 Content No Result Required. 12/22/19 05:15 ABG Base Excess -12.6 mmol/L (-2-2) L 12/22/19 05:15 John Paul Test Positive 12/22/19 05:15 Patient On Oxygen Yes 12/22/19 05:15 O2 Delivery Device Vent 12/22/19 05:15 Oxygen Flow Rate 100% 12/22/19 05:15 Vent Mode A/c 12/22/19 05:15 Vent Rate 32 12/22/19 05:15 Mechanical Rate Yes 12/22/19 05:15 PEEP 10.0 cmH2O 12/22/19 05:15 Pressure Support Vent 350 12/22/19 05:15 Sodium 139 mmol/L (136-145) 12/21/19 06:00 Potassium 5.6 mmol/L (3.5-5.1) H 12/21/19 06:00 Chloride 110 mmol/L (98-107) H 12/21/19 06:00 Carbon Dioxide 16 mmol/L (21-32) L 12/22/19 05:25 Anion Gap 8 MMOL/L (8-16) 12/21/19 06:00 BUN 91.9 mg/dL (7-18) H 12/22/19 05:25 Creatinine 2.3 mg/dL (0.55-1.3) H 12/22/19 05:25 Est GFR (CKD-EPI)AfAm 28.18 12/22/19 05:25 Est GFR (CKD-EPI)NonAf 24.32 12/22/19 05:25 POC Glucometer 295 UNITS (80-120) 12/21/19 22:22 Random Glucose 370 mg/dL (74-106) H 12/22/19 05:25 Hemoglobin A1c % < 3.5 % (4.2-6.3) L 12/05/19 12:01 Lactic Acid 0.9 mmol/L (0.4-2.0) 12/05/19 15:14 Calcium 8.2 mg/dL (8.5-10.1) L 12/22/19 05:25 Phosphorus 7.5 mg/dL (2.5-4.9) H 12/22/19 05:25 Magnesium 2.8 mg/dL (1.8-2.4) H 12/22/19 05:25 Ferritin 249.3 ng/ml (8-388) 12/18/19 05:30 Total Bilirubin 0.3 mg/dL (0.2-1) 12/22/19 05:25 Direct Bilirubin 0.1 mg/dL (0.0-0.2) 12/16/19 05:30 AST 14 U/L (15-37) L 12/22/19 05:25 ALT 23 U/L (13-61) 12/22/19 05:25 Alkaline Phosphatase 174 U/L (45-117) H 12/22/19 05:25 LD Total 379 U/L (84-246) H 12/21/19 06:00 Troponin I < 0.02 ng/ml (0.00-0.05) 12/05/19 06:15 C-Reactive Protein 11.8 MG/DL (0.00-0.3) H 12/22/19 05:25 B-Natriuretic Peptide 624.4 pg/ml (5-125) H 12/15/19 11:18 Total Protein 5.9 g/dl (6.4-8.2) L 12/22/19 05:25 Albumin 1.3 g/dl (3.4-5.0) L 12/22/19 05:25 Beta-Hydroxybutyrate 29.7 mg/dL (0.2-2.8) H 12/05/19 12:01 Beta HCG, Quant Cancelled 12/05/19 06:15 Serum , Qual Negative 12/05/19 08:00 Urine Color Yellow 12/20/19 06:00 Urine Appearance Cloudy 12/20/19 06:00 Urine pH 5.0 (5.0-8.0) 12/20/19 06:00 Ur Specific [place] 1.014 (1.010-1.035) 12/20/19 06:00 Urine Protein 1+ (NEGATIVE) H 12/20/19 06:00 Urine Glucose (UA) Negative (NEGATIVE) 12/20/19 06:00 Urine Ketones Negative (NEGATIVE) 12/20/19 06:00 Urine Blood Negative (NEGATIVE) 12/20/19 06:00 Urine Nitrite Negative (NEGATIVE) 12/20/19 06:00 Urine Bilirubin Negative (NEGATIVE) 12/20/19 06:00 Urine Urobilinogen 0.2 mg/dL (0.2-1.0) 12/20/19 06:00 Ur Leukocyte Esterase Negative (NEGATIVE) 12/20/19 06:00 Urine WBC (Auto) 598 /uL (0-25.8) 12/05/19 05:49 Urine RBC (Auto) 13 /uL (0-23.9) 12/05/19 05:49 Urine Casts (Auto) 1 /uL (0-3.1) 12/20/19 06:00 U Epithel Cells (Auto) 14 /uL (0-25.1) 12/20/19 06:00 Urine Bacteria (Auto) 5 /uL (0-1359) 12/20/19 06:00 Ur Random Creatinine 26.0 mg/dL (30-150) L 12/20/19 06:00 Ur Random Sodium 53 MMOL/L (40-220) 12/20/19 06:00 Ur Random Potassium 11.0 MMOL/L (25-125) L 12/20/19 06:00 Ur Random Chloride 44 MMOL/L (110-250) L 12/20/19 06:00 Random Vancomycin 27.6 ug/ml (5-26) H 12/21/19 06:00 Vancomycin Pre-Dose 37.3 ug/ml (5-10) H* 12/19/19 12:00 COVID-19 (BULMARO) Detected (Not Detected) H 12/05/19 06:15 Hep A IgM Ab Confirm Negative (Negative) 12/05/19 19:15 Hep Bs Antigen Negative (Negative) 12/05/19 19:15 Hep B Core IgM Ab Negative (Negative) 12/05/19 19:15 Hepatitis C Ab (EIA) <0.1 s/co ratio (0.0-0.9) 12/05/19 19:15 SARS-CoV-2 Ab Interp Non-reactive (NONREACTIVE) 12/05/19 11:05 Blood Type O POSITIVE 12/14/19 18:35 Antibody Screen Negative 12/14/19 18:35 Active Medications Albuterol Sulfate (Ventolin Hfa Inhaler -) 2 puff IH Q4H PRN PRN Reason: SHORT OF BREATH/WHEEZING Amino Acids (Prosource No Carb Liquid Pkt) 30 ml PO BID@0800,1730 [facility] Last Admin: 12/22/19 09:44 Dose: 30 ml Documented by: Artificial Tears (Artificial Tears) 1 drop OU TID PRN PRN Reason: Dry eyes Last Admin: 12/21/19 21:52 Dose: 1 drop Documented by: Ascorbic Acid (Vitamin C Oral Solution -) 250 mg NGT BID [facility] Last Admin: 12/22/19 09:44 Dose: 250 mg Documented by: Budesonide/Formoterol Fumarate (Symbicort 160/4.5mcg -) 2 puff IH BID [facility] Chlorhexidine Gluconate (Hibiclens For Decolonization -) 1 applic TP HS [facility] Last Admin: 12/21/19 21:41 Dose: 1 applic Documented by: Cholecalciferol (Vitamin D3 Oral Solution -) 1,000 unit GT DAILY [facility] Last Admin: 12/22/19 13:58 Dose: 1,000 units Documented by: Enoxaparin Sodium (Lovenox -) 80 mg SQ BID [facility] Last Admin: 12/22/19 09:44 Dose: 80 mg Documented by: Propofol (Diprivan -) 1,000,000 mcg in 100 mls @ 2.395 mls/hr IVPB TITR [facility]; Protocol Last Admin: 12/22/19 05:38 Dose: 50 mcg/kg/min, 23.95 mls/hr Documented by: Midazolam HCl 100 mg/ Sodium (Chloride) 100 mls @ 1 mls/hr IVPB TITR [facility]; Protocol Last Admin: 12/22/19 04:00 Dose: Not Given Documented by: Vecuronium [place] (Vecuronium [place]) 100 mg in 100 mls @ 4.79 mls/hr IVPB TITR [facility] Last Admin: 12/22/19 03:15 Dose: 1 mcg/kg/min, 4.79 mls/hr Documented by: Fentanyl (Sublimaze Ivpb) 500 mcg in 100 mls @ 15.966 mls/hr IVPB TITR [facility]; Protocol Last Titration: 12/22/19 04:49 Dose: 0.94 mcg/kg/hr, 15 mls/hr Documented by: Amino Acids (Clinimix -) 1,000 mls @ 84 mls/hr IV Q12H [facility] Cefepime HCl 1 gm/ Dextrose 100 mls @ 200 mls/hr IVPB BID [facility]; Protocol Insulin Aspart (Novolog Vial Sliding Scale -) 1 vial SQ ACHS [facility]; Protocol Last Admin: 12/22/19 12:00 Dose: 10 units Documented by: Insulin Detemir (Levemir Vial) 10 units SQ HS [facility] Last Admin: 12/21/19 21:49 Dose: 10 units Documented by: Methylprednisolone Sodium Succinate (Solu-Medrol -) 40 mg IVPUSH BID [facility] Last Admin: 12/22/19 09:44 Dose: 40 mg Documented by: Nystatin (Mycostatin Cream -) 1 applic TP BID [facility] Last Admin: 12/22/19 09:44 Dose: 1 applic Documented by: Pantoprazole Sodium (Protonix Iv) 40 mg IVPUSH DAILY [facility] Last Admin: 12/22/19 09:44 Dose: 40 mg Documented by: Zinc Sulfate (Orazinc -) 220 mg NGT BID [facility] Last Admin: 12/22/19 09:44 Dose: 220 mg Documented by: ASSESSMENT/PLAN: 49 yo Female with PMH DM, HTN, gastroparesis presented to ED with shortness of breath and is admitted to ICU for COVID pneumonitis. Pt was desaturating ~80% on NRB and tachypneic RR 40 and using accessory muscles. Pt was placed on HFOT, but further desaturated SpO2 ~70%. Pt was not able to sustain SpO2 greater than 88% and thus, decision made to intubate. Pt had rising WBC. Pt completed remdesevir regimen, received C-plasma, regimen of roephin/azithromycin and is currently on Cefepime. ABG showed respiratory acidosis. Inflammatory markers increasing for 2 days. Neuro - Sedated on propofol 50, midazolam 9, fentanyl 75 - c/w vecuronium for paralysis Cardio h/o HTN - No home meds for HTN. - Monitor and maintain MAP>65 - Monitor and transfuse if Hb<7 Pulmonary COVID pneumonitis - c/w albuterol, ipratropium bromide, methylprednisolone 40 BID, inhaled budesonide BID - c/w Lovenox 80 BID - Vent: AC/VC 35/350/90%/10, maintain PPlat <30. Pplat 33 PIP 35. (Changed the filter and better PIP) - CXR showed b/l congestive and infiltrative changes - ABG showed respiratory acidosis. GI h/o gastroparesis -Consider reglan for high residuals Endo h/o DM - ISS + BGM - Levemir 10 qHS Renal Hyperkalemia NELLIE -Worsening hyperkalemia, BUN/Cr. -Diuresis for net negative -Nephrology consulted. Treat potassium medically. Will evaluate for TRANSPORTATION ENGINEER daily. Continue 1/2 NS @ 35. If K+ improves, switch 1/2 NS to LR. -Monitor I/O's, urine output ID COVID pneumonitis Leukocytosis - c/w Vitamin C, D, Zinc - ID consulted. Pt completed 5 days Remdesevir. Received c-plasma. Completed rocephin/azithromycin. Recommended c/w cefepime (day 8). - c/w trending inflammatory markers. Inflammatory markers increasing. - Bcx negative thus far. Ucx negative. Sputum culture grew Enterococcus faecalis and yeast-like organism. - No tocilizumab, because active infection - c/w topical nystatin cream for skin PPX - DVT: Lovenox 80 BID - GI : PPI 40 IV qD FEN - 1/2 NS @ 75 - Monitor and replete electrolytes as needed - Stop feeds. C/w [employer] - [facility] 12/20 Day 2 - ETT 12/14 Day 8 - [place] Family discussion: Spoke to . Updated him about pt's status. Will do video chat with pt today. Dispo: Continue to monitor in the ICU. Visit type - Emergency Visit Emergency Visit: Yes ED Registration Date: 12/05/19 Care time: The patient presented to the Emergency Department on the above date and was hospitalized for further evaluation of their emergent condition. - New Patient This patient is new to me today: No - Critical Care Critical Care patient: Yes Total Critical Care Time (in minutes): 38 Critical Care Statement: The care of this patient involved high complexity decision making to prevent further life threatening deterioration of the patient's condition and/or to evaluate & treat vital organ system(s) failure or risk of failure. ATTENDING PHYSICIAN STATEMENT I saw and evaluated the patient. I reviewed the resident's note and discussed the case with the resident. I agree with the resident's findings and plan as documented. SUBJECTIVE: OBJECTIVE: ASSESSMENT AND PLAN:
[2019-12-22 07:00] LABS: POTASSIUM 5.8 mmol/L (3.5-5.1)
[2019-12-22] MEDS ORDERED: SODIUM BICARBONATE 8.4% 50 MEQ/50 ML DISP.SYRIN IVPUSH ONE ×3 (07:00→20:12)
[2019-12-22] MEDS: INSULIN SLIDING SCALE (NOVOLOG) 1 VIAL SQ SCH ×4 (07:40→22:30)
[2019-12-22] MEDS ORDERED: SODIUM ZIRCONIUM CYCLOSILICATE (LOKELMA) 5 GM PACKET PO ONE ×3 (07:50→12:12)
[2019-12-22] MEDS ORDERED: PT OWN MED DRAWER 7, Y5N ONE ×3 (08:45→22:24)
[2019-12-22 09:08] LABS: ERYTHROCYTE SEDIMENTATION RATE 119 mm/hr (0-20)
[2019-12-22] MEDS: AMINO ACIDS/PROTEIN HYDROLYS 30 ML LIQUID.PKT PO SCH ×2 (09:44→17:21)
[2019-12-22] MEDS: ASCORBIC ACID 500 MG/5 ML UNIT DOSE CUP NGT SCH ×2 (09:44→22:30)
[2019-12-22] MEDS: ZINC SULFATE 220 MG CAPSULE (FP) NGT SCH ×2 (09:44→22:31)
[2019-12-22] MEDS: PANTOPRAZOLE SODIUM 40 MG VIAL IVPUSH SCH (09:44)
[2019-12-22] MEDS: NYSTATIN 100,000 UNIT/GM TOPICAL CREAM 15 GM TUBE TP SCH ×2 (09:44→22:31)
[2019-12-22] MEDS: methylPREDNISolone NA SUCC 40 MG/1 ML VIAL IVPUSH SCH ×2 (09:44→22:31)
[2019-12-22] MEDS: ENOXAPARIN NA (PORCINE) 80 MG/0.8 ML DISP.SYRIN SQ SCH ×2 (09:44→22:29)
--- NOTE | 2019-12-22 10:57 | PN ---
Teaching Attending Note Name of Resident: Sandi Jaimes ATTENDING PHYSICIAN STATEMENT I saw and evaluated the patient. I reviewed the resident's note and discussed the case with the resident. I agree with the resident's findings and plan as documented. SUBJECTIVE: Patient seen and examined in the ICU. Remains intubated and sedated. AC mode of vent, 90% FiO2. No pressors. PPlat : 32 Inflammatory markers are increasing. CXR: No PTX / no gross change. Intake & Output 12/19/19 12/20/19 12/21/19 12/22/19 23:59 23:59 23:59 23:59 Intake Total 2898.8 3748 4596 1210 Output Total 1900 1750 2550 200 Balance 998.8 1998 6 1010 Last Vital Signs Temp Pulse Resp BP Pulse Ox 98.0 F 115 H 32 H 126/63 100 12/22/19 06:00 12/22/19 08:19 12/22/19 08:15 12/22/19 06:00 12/22/19 08:19 Active Medications Albuterol Sulfate (Ventolin Hfa Inhaler -) 2 puff IH Q4H PRN PRN Reason: SHORT OF BREATH/WHEEZING Amino Acids (Prosource No Carb Liquid Pkt) 30 ml PO BID@0800,1730 [facility] Last Admin: 12/22/19 09:44 Dose: 30 ml Documented by: Artificial Tears (Artificial Tears) 1 drop OU TID PRN PRN Reason: Dry eyes Last Admin: 12/21/19 21:52 Dose: 1 drop Documented by: Ascorbic Acid (Vitamin C Oral Solution -) 250 mg NGT BID [facility] Last Admin: 12/22/19 09:44 Dose: 250 mg Documented by: Chlorhexidine Gluconate (Hibiclens For Decolonization -) 1 applic TP HS [facility] Last Admin: 12/21/19 21:41 Dose: 1 applic Documented by: Cholecalciferol (Vitamin D3 Oral Solution -) 1,000 unit GT DAILY [facility] Last Admin: 12/21/19 12:50 Dose: 1,000 units Documented by: Enoxaparin Sodium (Lovenox -) 80 mg SQ BID [facility] Last Admin: 12/22/19 09:44 Dose: 80 mg Documented by: Propofol (Diprivan -) 1,000,000 mcg in 100 mls @ 2.395 mls/hr IVPB TITR [facility]; Protocol Last Admin: 12/22/19 05:38 Dose: 50 mcg/kg/min, 23.95 mls/hr Documented by: Midazolam HCl 100 mg/ Sodium (Chloride) 100 mls @ 1 mls/hr IVPB TITR [facility]; Protocol Last Admin: 12/22/19 04:00 Dose: Not Given Documented by: Vecuronium Delta (Vecuronium Delta) 100 mg in 100 mls @ 4.79 mls/hr IVPB TITR [facility] Last Admin: 12/22/19 03:15 Dose: 1 mcg/kg/min, 4.79 mls/hr Documented by: Fentanyl (Sublimaze Ivpb) 500 mcg in 100 mls @ 15.966 mls/hr IVPB TITR [facility]; Protocol Last Titration: 12/22/19 04:49 Dose: 0.94 mcg/kg/hr, 15 mls/hr Documented by: Cefepime HCl 2 gm/ Sodium (Chloride) 100 mls @ 200 mls/hr IVPB Q8H-IV [facility]; Protocol Last Admin: 12/22/19 09:44 Dose: 200 mls/hr Documented by: Amino Acids (Clinimix -) 1,000 mls @ 40 mls/hr IV Q24H [facility] Last Admin: 12/21/19 15:00 Dose: 40 mls/hr Documented by: Sodium Chloride (1/2 Normal Saline) 1,000 mls @ 35 mls/hr IV ASDIR [facility] Last Admin: 12/21/19 15:00 Dose: 35 mls/hr Documented by: Insulin Aspart (Novolog Vial Sliding Scale -) 1 vial SQ ACHS [facility]; Protocol Last Admin: 12/22/19 07:40 Dose: 10 units Documented by: Insulin Detemir (Levemir Vial) 10 units SQ HS [facility] Last Admin: 12/21/19 21:49 Dose: 10 units Documented by: Methylprednisolone Sodium Succinate (Solu-Medrol -) 40 mg IVPUSH BID [facility] Last Admin: 12/22/19 09:44 Dose: 40 mg Documented by: Nystatin (Mycostatin Cream -) 1 applic TP BID [facility] Last Admin: 12/22/19 09:44 Dose: 1 applic Documented by: Pantoprazole Sodium (Protonix Iv) 40 mg IVPUSH DAILY [facility] Last Admin: 12/22/19 09:44 Dose: 40 mg Documented by: Sodium Zirconium Cyclosilicate (Lokelma) 10 gm PO ONCE ONE Stop: 12/22/19 12:13 Zinc Sulfate (Orazinc -) 220 mg NGT BID [facility] Last Admin: 12/22/19 09:44 Dose: 220 mg Documented by: GEN: intubated, sedated ENT: Sclera clear LUNGS: Vented, bilateral coarse rhonchi CV: S1S2, tachy RRR ABD: Soft, ND, NT+ bowel sounds, no guarding, no rebound EXT: WWP; no edema NEURO: Sedated Laboratory Results - last 24 hr 12/21/19 12/21/19 12/21/19 11:23 15:40 17:13 WBC RBC Hgb Hct MCV MCH MCHC RDW Plt Count MPV Absolute Neuts (auto) Neutrophils % Lymphocytes % Monocytes % Eosinophils % Basophils % Nucleated RBC % ESR D-Dimer Anticoagulation Therapy No Result Required. Puncture Site Right radial Patient Temperature No Result Required. ABG pH 7.080 L* ABG pCO2 61.70 H ABG pO2 160.9 H ABG HCO3 17.9 L ABG O2 Sat (Measured) 98.3 H ABG O2 Content No Result Required. ABG Base Excess -11.6 L John Paul Test Positive Patient On Oxygen No Result Required. O2 Delivery Device Ventilator Oxygen Flow Rate 100% Vent Mode Vol/ac Vent Rate 28 Mechanical Rate No Result Required. PEEP 10.0 Pressure Support Vent 350 Sodium Potassium Chloride Carbon Dioxide Anion Gap BUN Creatinine Est GFR (CKD-EPI)AfAm Est GFR (CKD-EPI)NonAf POC Glucometer 243 305 Random Glucose Calcium Phosphorus Magnesium Total Bilirubin AST ALT Alkaline Phosphatase LD Total C-Reactive Protein Total Protein Albumin 12/21/19 12/21/19 12/22/19 20:05 22:22 05:15 WBC RBC Hgb Hct MCV MCH MCHC RDW Plt Count MPV Absolute Neuts (auto) Neutrophils % Lymphocytes % Monocytes % Eosinophils % Basophils % Nucleated RBC % ESR D-Dimer Anticoagulation Therapy No Result Required. No Result Required. Puncture Site Left radial Left radial Patient Temperature No Result Required. No Result Required. ABG pH 7.152 L* 7.133 L* ABG pCO2 46.30 H 48.80 H ABG pO2 208.1 H 170.1 H ABG HCO3 15.8 L 16.0 L ABG O2 Sat (Measured) 99.1 H 98.6 H ABG O2 Content No Result Required. No Result Required. ABG Base Excess -12.3 L -12.6 L John Paul Test No Result Required. Positive Patient On Oxygen Yes Yes O2 Delivery Device Vent Vent Oxygen Flow Rate No Result Required. 100% Vent Mode A/c A/c Vent Rate 32 32 Mechanical Rate No Result Required. Yes PEEP 10.0 10.0 Pressure Support Vent 350 350 Sodium Potassium Chloride Carbon Dioxide Anion Gap BUN Creatinine Est GFR (CKD-EPI)AfAm Est GFR (CKD-EPI)NonAf POC Glucometer 295 Random Glucose Calcium Phosphorus Magnesium Total Bilirubin AST ALT Alkaline Phosphatase LD Total C-Reactive Protein Total Protein Albumin 12/22/19 12/22/19 12/22/19 05:25 05:25 05:25 WBC 12.1 H RBC 3.16 L Hgb 8.2 L Hct 26.4 L MCV 83.3 MCH 26.0 MCHC 31.2 L RDW 15.3 Plt Count 190 MPV 8.6 Absolute Neuts (auto) 11.4 H Neutrophils % 93.7 H Lymphocytes % 2.6 L Monocytes % 3.5 L Eosinophils % 0.1 Basophils % 0.1 Nucleated RBC % 0 ESR 119 H D-Dimer 1301 H Anticoagulation Therapy Puncture Site Patient Temperature ABG pH ABG pCO2 ABG pO2 ABG HCO3 ABG O2 Sat (Measured) ABG O2 Content ABG Base Excess [place] Test Patient On Oxygen O2 Delivery Device Oxygen Flow Rate Vent Mode Vent Rate Mechanical Rate PEEP Pressure Support Vent Sodium 134 L Potassium 5.8 H Chloride 106 Carbon Dioxide 16 L Anion Gap 12 BUN 91.9 H Creatinine 2.3 H Est GFR (CKD-EPI)AfAm 28.18 Est GFR (CKD-EPI)NonAf 24.32 POC Glucometer Random Glucose 370 H Calcium 8.2 L Phosphorus 7.5 H Magnesium 2.8 H Total Bilirubin 0.3 AST 14 L ALT 23 Alkaline Phosphatase 174 H LD Total 355 H C-Reactive Protein 11.8 H Total Protein 5.9 L Albumin 1.3 L ASSESSMENT/PLAN: Acute Respiratory Failure due to ARDS due to COVID19 Pneumonitis Capillary Leak Syndrome DM Hyperglycemia HTN Gastroparesis Sepsis PE ruled out NELLIE Will D/W Renal REJECTED ITEMS CLERK Conservative IVF LTVV; PPlat goal<30 Continue Steroids Sedation/Paralyze for vent synchrony Full AC Strict Isolation and usage of Full PPE S/P Remdesivir x 5 days S/P Convalescent Plasma treatment Will not give Actemra due to active infectious process Vit C; Vitamin D; Zinc Strict I & O Replete electrolytes Dr Rivas Critical care time spent in reviewing chart, evaluating patient and formulating plan - 36 minutes.
[2019-12-22] MEDS ORDERED: MIDAZOLAM IN 0.9 % SOD.CHLORID 1 MG/1 ML PLAST..BAG ONE ×2 (11:03→21:06)
[2019-12-22 12:12] LABS: ANISOCYTOSIS 0; MACROCYTOSIS 0; PLATELET ESTIMATE NORMAL
[2019-12-22] MEDS ORDERED: SODIUM BICARBONATE 8.4% - 50 ML ONE (13:42)
--- NOTE | 2019-12-22 13:56 | PN ---
Progress Note, Physician History of Present Illness: REMAINS SEDATED ON VENTILATOR AFEBRILE WBC SLIGHTLY INCREASED RENAL FUNCTION WORSENING - Current Medication List Current Medications: Active Medications Albuterol Sulfate (Ventolin Hfa Inhaler -) 2 puff IH Q4H PRN PRN Reason: SHORT OF BREATH/WHEEZING Amino Acids (Prosource No Carb Liquid Pkt) 30 ml PO BID@0800,1730 [facility]CLUDES [facility] Last Admin: 12/22/19 09:44 Dose: 30 ml Documented by: Artificial Tears (Artificial Tears) 1 drop OU TID PRN PRN Reason: Dry eyes Last Admin: 12/21/19 21:52 Dose: 1 drop Documented by: Ascorbic Acid (Vitamin C Oral Solution -) 250 mg NGT BID COUNT [facility]CLUDES [facility] Last Admin: 12/22/19 09:44 Dose: 250 mg Documented by: Chlorhexidine Gluconate (Hibiclens For Decolonization -) 1 applic TP HS COUNT INCLUDES [facility] Last Admin: 12/21/19 21:41 Dose: 1 applic Documented by: Cholecalciferol (Vitamin D3 Oral Solution -) 1,000 unit GT DAILY [facility] Last Admin: 12/21/19 12:50 Dose: 1,000 units Documented by: Enoxaparin Sodium (Lovenox -) 80 mg SQ BID [facility] Last Admin: 12/22/19 09:44 Dose: 80 mg Documented by: Propofol (Diprivan -) 1,000,000 mcg in 100 mls @ 2.395 mls/hr IVPB TITR COUNT [facility]CLUDES [facility]; Protocol Last Admin: 12/22/19 05:38 Dose: 50 mcg/kg/min, 23.95 mls/hr Documented by: Midazolam HCl 100 mg/ Sodium (Chloride) 100 mls @ 1 mls/hr IVPB TITR COUNT [facility]CLUDES [facility]; Protocol Last Admin: 12/22/19 04:00 Dose: Not Given Documented by: Vecuronium [place] (Vecuronium [place]) 100 mg in 100 mls @ 4.79 mls/hr IVPB TITR COUNT INCLUDES [facility] Last Admin: 12/22/19 03:15 Dose: 1 mcg/kg/min, 4.79 mls/hr Documented by: Fentanyl (Sublimaze Ivpb) 500 mcg in 100 mls @ 15.966 mls/hr IVPB TITR COUNT [facility]CLUDES [facility]; Protocol Last Titration: 12/22/19 04:49 Dose: 0.94 mcg/kg/hr, 15 mls/hr Documented by: Amino Acids (Clinimix -) 1,000 mls @ 84 mls/hr IV Q12H COUNT INCLUDES [facility] Insulin Aspart (Novolog Vial Sliding Scale -) 1 vial SQ ACHS COUNT [facility]CLUDES [facility]; Protocol Last Admin: 12/22/19 12:00 Dose: 10 units Documented by: Insulin Detemir (Levemir Vial) 10 units SQ HS COUNT [facility]CLUDES [facility] Last Admin: 12/21/19 21:49 Dose: 10 units Documented by: Methylprednisolone Sodium Succinate (Solu-Medrol -) 40 mg IVPUSH BID COUNT [facility]CLUDES [facility] Last Admin: 12/22/19 09:44 Dose: 40 mg Documented by: Nystatin (Mycostatin Cream -) 1 applic TP BID COUNT [facility]CLUDES [facility] Last Admin: 12/22/19 09:44 Dose: 1 applic Documented by: Pantoprazole Sodium (Protonix Iv) 40 mg IVPUSH DAILY COUNT [facility]CLUDES [facility] Last Admin: 12/22/19 09:44 Dose: 40 mg Documented by: Zinc Sulfate (Orazinc -) 220 mg NGT BID COUNT [facility]CLUDES [facility] Last Admin: 12/22/19 09:44 Dose: 220 mg Documented by: - Objective Vital Signs: Vital Signs Temperature 98.0 F 12/22/19 06:00 Pulse Rate 115 H 12/22/19 08:19 Respiratory Rate 35 H 12/22/19 12:41 Blood Pressure 126/63 12/22/19 06:00 O2 Sat by Pulse Oximetry (%) 98 12/22/19 12:41 Constitutional: Yes: No Distress Cardiovascular: Yes: Regular Rate and Rhythm, S1, S2 Respiratory: Yes: Mechanically Ventilated Edema: LUE: 1+, RUE: 1+, LLE: 1+, RLE: 1+ Labs: CBC, BMP 12/22/19 05:25 12/22/19 05:25 INR, PTT INR 0.92 (0.83-1.09) 12/05/19 06:15 Assessment/Plan COVID-19 PNEUMONITIS S/P RESP FAILURE AZOTEMIA CONTINUE EMPIRIC CEFEPIME ADJUST FOR AZOTEMIA RECEIVED CONVALESCENT PLASMA, REMDESIVIR VENTILATORY SUPPORT
[2019-12-22] MEDS: CHOLECALCIFEROL (VIT D SOLUTION) 400 UNIT/1 ML DROPS GT SCH (13:58)
--- NOTE | 2019-12-22 16:14 | PN ---
Progress Note, Physician History of Present Illness: Pt seen and examined at bedside. She remains in the ICU. She remains intubated. - Current Medication List Current Medications: Active Medications Albuterol Sulfate (Ventolin Hfa Inhaler -) 2 puff IH Q4H PRN PRN Reason: SHORT OF BREATH/WHEEZING Amino Acids (Prosource No Carb Liquid Pkt) 30 ml PO BID@0800,1730 [facility] Last Admin: 12/22/19 09:44 Dose: 30 ml Documented by: Artificial Tears (Artificial Tears) 1 drop OU TID PRN PRN Reason: Dry eyes Last Admin: 12/21/19 21:52 Dose: 1 drop Documented by: Ascorbic Acid (Vitamin C Oral Solution -) 250 mg NGT BID [facility] Last Admin: 12/22/19 09:44 Dose: 250 mg Documented by: Budesonide/Formoterol Fumarate (Symbicort 160/4.5mcg -) 2 puff IH BID [facility] Chlorhexidine Gluconate (Hibiclens For Decolonization -) 1 applic TP HS [facility] Last Admin: 12/21/19 21:41 Dose: 1 applic Documented by: Cholecalciferol (Vitamin D3 Oral Solution -) 1,000 unit GT DAILY [facility] Last Admin: 12/22/19 13:58 Dose: 1,000 units Documented by: Enoxaparin Sodium (Lovenox -) 80 mg SQ BID [facility] Last Admin: 12/22/19 09:44 Dose: 80 mg Documented by: Propofol (Diprivan -) 1,000,000 mcg in 100 mls @ 2.395 mls/hr IVPB TITR [facility]; Protocol Last Admin: 12/22/19 05:38 Dose: 50 mcg/kg/min, 23.95 mls/hr Documented by: Midazolam HCl 100 mg/ Sodium (Chloride) 100 mls @ 1 mls/hr IVPB TITR [facility]; Protocol Last Admin: 12/22/19 04:00 Dose: Not Given Documented by: Vecuronium [place] (Vecuronium [place]) 100 mg in 100 mls @ 4.79 mls/hr IVPB TITR [facility] Last Admin: 12/22/19 03:15 Dose: 1 mcg/kg/min, 4.79 mls/hr Documented by: Fentanyl (Sublimaze Ivpb) 500 mcg in 100 mls @ 15.966 mls/hr IVPB TITR [facility]; Protocol Last Titration: 12/22/19 04:49 Dose: 0.94 mcg/kg/hr, 15 mls/hr Documented by: Amino Acids (Clinimix -) 1,000 mls @ 84 mls/hr IV Q12H [facility] Cefepime HCl 1 gm/ Dextrose 100 mls @ 200 mls/hr IVPB BID [facility]; Protocol Insulin Aspart (Novolog Vial Sliding Scale -) 1 vial SQ ACHS [facility]; Protocol Last Admin: 12/22/19 12:00 Dose: 10 units Documented by: Insulin Detemir (Levemir Vial) 10 units SQ HS [facility] Last Admin: 12/21/19 21:49 Dose: 10 units Documented by: Methylprednisolone Sodium Succinate (Solu-Medrol -) 40 mg IVPUSH BID [facility] Last Admin: 12/22/19 09:44 Dose: 40 mg Documented by: Nystatin (Mycostatin Cream -) 1 applic TP BID [facility] Last Admin: 12/22/19 09:44 Dose: 1 applic Documented by: Pantoprazole Sodium (Protonix Iv) 40 mg IVPUSH DAILY [facility] Last Admin: 12/22/19 09:44 Dose: 40 mg Documented by: Zinc Sulfate (Orazinc -) 220 mg NGT BID [facility] Last Admin: 12/22/19 09:44 Dose: 220 mg Documented by: - Objective Vital Signs: Vital Signs Temperature 98.0 F 12/22/19 06:00 Pulse Rate 115 H 12/22/19 08:19 Respiratory Rate 35 H 12/22/19 12:41 Blood Pressure 126/63 12/22/19 06:00 O2 Sat by Pulse Oximetry (%) 98 12/22/19 12:41 Constitutional: Yes: Calm Eyes: Yes: Conjunctiva Clear Cardiovascular: Yes: S1, S2 Respiratory: Yes: Mechanically Ventilated Gastrointestinal: Yes: Soft Genitourinary: Yes: [place] Present Musculoskeletal: Yes: Muscle Weakness Edema: No Integumentary: Yes: WNL Neurological: Yes: Lethargy Labs: CBC, BMP 12/22/19 05:25 12/22/19 05:25 INR, PTT INR 0.92 (0.83-1.09) 12/05/19 06:15 Problem List - Problems (1) NELLIE (acute kidney injury) Code(s): N17.9 - ACUTE KIDNEY FAILURE, UNSPECIFIED (2) Acute respiratory failure Code(s): J96.00 - ACUTE RESPIRATORY FAILURE, UNSP W HYPOXIA OR HYPERCAPNIA Qualifiers: Respiratory failure complication: hypoxia Qualified Code(s): J96.01 - Acute respiratory failure with hypoxia (3) COVID-19 Code(s): U07.1 - COVID POSITIVE Assessment/Plan Current Medications Generic Name Dose Route Start Last Admin Trade Name Freq PRN Reason Stop Dose Admin Albuterol Sulfate 2 puff 12/15/19 04:44 Ventolin Hfa Inhaler - IH Q4H PRN SHORT OF BREATH/WHEEZING Amino Acids 30 ml 12/18/19 17:30 12/22/19 09:44 Prosource No Carb Liquid Pkt PO 30 ml BID@0800,1730 [facility] Administration Artificial Tears 1 drop 12/15/19 09:04 12/21/19 21:52 Artificial Tears OU 1 drop TID PRN Administration Dry eyes Ascorbic Acid 250 mg 12/15/19 22:00 12/22/19 09:44 Vitamin C Oral Solution - NGT 250 mg BID [facility] Administration Budesonide/Formoterol Fumarate 2 puff 12/22/19 22:00 Symbicort 160/4.5mcg - IH BID [facility] Chlorhexidine Gluconate 1 applic 12/15/19 22:00 12/21/19 21:41 Hibiclens For Decolonization - TP 1 applic HS [facility] Administration Cholecalciferol 1,000 unit 12/16/19 10:00 12/22/19 13:58 Vitamin D3 Oral Solution - GT 1,000 units DAILY [facility] Administration Enoxaparin Sodium 80 mg 12/15/19 10:00 12/22/19 09:44 Lovenox - SQ 80 mg BID [facility] Administration Propofol 1,000,000 mcg in 100 mls @ 2.395 mls/hr 12/15/19 03:45 12/22/19 05:38 Diprivan - IVPB 50 mcg/kg/min TITR [facility] 23.95 mls/hr Administration Protocol 5 MCG/KG/MIN Midazolam HCl 100 mg/ Sodium 100 mls @ 1 mls/hr 12/15/19 04:00 12/22/19 04:00 Chloride IVPB Not Given TITR [facility] Protocol 1 MG/HR Vecuronium [place] 100 mg in 100 mls @ 4.79 mls/hr 12/15/19 04:15 12/22/19 03:15 Vecuronium [place] IVPB 1 mcg/kg/min TITR [facility] 4.79 mls/hr Administration 1 MCG/KG/MIN Fentanyl 500 mcg in 100 mls @ 15.966 mls/hr 12/17/19 11:30 12/22/19 04:49 Sublimaze Ivpb IVPB 0.94 mcg/kg/hr TITR [facility] 15 mls/hr Titration Protocol 1 MCG/KG/HR Amino Acids 1,000 mls @ 84 mls/hr 12/22/19 13:45 Clinimix - IV Q12H [facility] Cefepime HCl 1 gm/ Dextrose 100 mls @ 200 mls/hr 12/22/19 22:00 IVPB BID [facility] Protocol Insulin Aspart 1 vial 12/15/19 07:00 12/22/19 12:00 Novolog Vial Sliding Scale - SQ 10 units ACHS [facility] Administration Protocol Insulin Detemir 10 units 12/21/19 22:00 12/21/19 21:49 Levemir Vial SQ 10 units HS [facility] Administration Methylprednisolone Sodium Succinate 40 mg 12/15/19 10:00 12/22/19 09:44 Solu-Medrol - IVPUSH 40 mg BID [facility] Administration Nystatin 1 applic 12/18/19 12:00 12/22/19 09:44 Mycostatin Cream - TP 1 applic BID [facility] Administration Pantoprazole Sodium 40 mg 12/16/19 10:00 12/22/19 09:44 Protonix Iv IVPUSH 40 mg DAILY [facility] Administration Zinc Sulfate 220 mg 12/15/19 22:00 12/22/19 09:44 Orazinc - NGT 220 mg BID [facility] Administration Impression 1. NELLIE 2. covid 3. resp failure requiring intubation 4. dm 5. htn 6. gastroparesis 7. sepsis 8. elevated vanco level Plan - renal function worsening - maintain map 65 - cont vent support - cont clinimix as she is not tolerating feeds - treat potassium medically - will evaluate for CHANNEL INST[employer]ER daily - follow repeat labs - s/p Remdesivir x 5 days - s/p Convalescent Plasma treatment - cont to monitor lytes - monitor urine output - discussed in detail with ICU team - cont ICU care
[2019-12-22] MEDS: SODIUM CHLORIDE 0.45% 1,000 ML IV SCH (19:22)
[2019-12-22] MEDS: AMINO ACIDS 4.25%/D5W 1,000 ML IV SCH ×2 (19:23→19:26)
[2019-12-22] MEDS ORDERED: NOREPINEPHRINE BITARTRATE 4 MG/4 ML ML IV ONE (19:35)
[2019-12-22 19:56] LABS: ALBUMIN 1.3 g/dl (3.4-5.0); BILIRUBIN,TOTAL 1.5 mg/dL (0.2-1); CALCIUM 8.1 mg/dL (8.5-10.1); CREATININE 2.7 mg/dL (0.55-1.3); POTASSIUM 5.4 mmol/L (3.5-5.1); TOT PROT 5.7 g/dl (6.4-8.2)
[2019-12-22] MEDS: NOREPINEPHRINE BITARTRATE 8,000 MCG/500 ML BAG IVPB SCH (19:57)
[2019-12-22 19:59] LABS: BLOOD UREA NITROGEN 106.3 mg/dL (7-18)
[2019-12-22] MEDS: BUDESONIDE/FORMETEROL FUMARATE 160/4.5 mcg INHALER IH SCH (21:24)
[2019-12-22] MEDS ORDERED: CEFEPIME HCL 1 GM VIAL (RESTRICTED TO ID) ONE (22:22)
[2019-12-22] MEDS ORDERED: DEXTROSE 5%-WATER 100 ML IVPB ONE (22:23)
[2019-12-22] MEDS: CEFEPIME 1 GM in DEXTROSE 5%-WATER 100 ML IVPB SCH (22:28)
[2019-12-22] MEDS: CHLORHEXIDINE GLUCONATE 4% CLEANSER FOR DECOLONIZATION TP SCH (22:29)
[2019-12-22] MEDS: INSULIN (LEVEMIR) 100 UNITS/ML UNITS SQ SCH (22:29)
[2019-12-23] MEDS: AMINO ACIDS 4.25%/D5W 1,000 ML IV SCH ×2 (03:06→18:30)
[2019-12-23 06:20] LABS: ARTERIAL BLD GAS O2 SATURATION 91.8 mmHg (95-98); ARTERIAL BLOOD GAS PO2 82.5 mmHg (80-100); ARTERIAL BLOOD GAS pH 7.105 (7.350-7.450)
[2019-12-23 06:23] LABS: ALLENS TEST POSITIVE
[2019-12-23 06:24] LABS: VENT MODE A/C; VENT RATE 35
[2019-12-23] MEDS: INSULIN SLIDING SCALE (NOVOLOG) 1 VIAL SQ SCH ×4 (06:42→22:21)
[2019-12-23] MEDS ORDERED: MIDAZOLAM IN 0.9 % SOD.CHLORID 1 MG/1 ML PLAST..BAG ONE ×2 (06:47→18:22)
[2019-12-23 07:40] LABS: BASO % 0.1 % (0-2.0); EOS % 0.1 % (0-4.5); HEMATOCRIT 26.3 % (32.4-45.2); HEMOGLOBIN 8.3 GM/dL (10.7-15.3); LYMPH % 3.2 % (8-40); MCH 25.9 pg (25.7-33.7); MCHC 31.6 g/dl (32.0-36.0); MEAN CELL VOLUME 82.1 fl (80-96); MEAN PLT VOLUME 8.9 fl (7.5-11.1); MONO % 4.1 % (3.8-10.2); NEUT % 92.5 % (42.8-82.8); PLATELET COUNT 246 K/MM3 (134-434); RBC 3.21 M/mm3 (3.60-5.2); RDW 15.1 % (11.6-15.6); WHITE BLOOD COUNT 22.9 K/mm3 (4.0-10.0)
[2019-12-23 08:48] LABS: ALBUMIN 1.3 g/dl (3.4-5.0); BILIRUBIN,TOTAL 0.4 mg/dL (0.2-1); CALCIUM 8.1 mg/dL (8.5-10.1); CREATININE 3.1 mg/dL (0.55-1.3); PHOSPHOROUS 8.9 mg/dL (2.5-4.9); POTASSIUM 5.6 mmol/L (3.5-5.1); TOT PROT 5.8 g/dl (6.4-8.2)
[2019-12-23] MEDS ORDERED: PT OWN MED DRAWER 7, Y5N ONE ×2 (08:49→18:13)
[2019-12-23] MEDS ORDERED: CEFEPIME HCL 1 GM VIAL (RESTRICTED TO ID) ONE ×2 (08:50→22:33)
[2019-12-23] MEDS ORDERED: DEXTROSE 5%-WATER 100 ML IVPB ONE ×2 (08:50→22:33)
[2019-12-23] MEDS ORDERED: SODIUM BICARBONATE 8.4% 50 MEQ/50 ML VIAL IV SCH (09:00)
[2019-12-23] MEDS: AMINO ACIDS/PROTEIN HYDROLYS 30 ML LIQUID.PKT PO SCH ×2 (09:04→17:40)
[2019-12-23 09:42] LABS: BLOOD UREA NITROGEN 110.6 mg/dL (7-18)
[2019-12-23] MEDS: PROPOFOL 1,000,000 MCG/100 ML VIAL IVPB SCH (09:56)
[2019-12-23] MEDS: MIDAZOLAM 100 MG in SODIUM CHLORIDE 100 ML IVPB SCH (10:04)
[2019-12-23] MEDS ORDERED: SODIUM CHLORIDE 250 ML IV PRN (10:21)
[2019-12-23] MEDS: CEFEPIME 1 GM in DEXTROSE 5%-WATER 100 ML IVPB SCH ×2 (10:28→23:04)
[2019-12-23] MEDS: ENOXAPARIN NA (PORCINE) 80 MG/0.8 ML DISP.SYRIN SQ SCH ×2 (10:28→22:55)
[2019-12-23] MEDS: SODIUM ZIRCONIUM CYCLOSILICATE (LOKELMA) 5 GM PACKET PO SCH (10:28)
[2019-12-23] MEDS: NYSTATIN 100,000 UNIT/GM TOPICAL CREAM 15 GM TUBE TP SCH ×2 (10:28→22:57)
[2019-12-23] MEDS: ZINC SULFATE 220 MG CAPSULE (FP) NGT SCH ×2 (10:28→22:14)
[2019-12-23] MEDS: methylPREDNISolone NA SUCC 40 MG/1 ML VIAL IVPUSH SCH ×2 (10:29→22:57)
[2019-12-23] MEDS: BUDESONIDE/FORMETEROL FUMARATE 160/4.5 mcg INHALER IH SCH ×2 (10:29→22:24)
[2019-12-23] MEDS: ASCORBIC ACID 500 MG/5 ML UNIT DOSE CUP NGT SCH ×2 (10:29→22:15)
[2019-12-23] MEDS: CHOLECALCIFEROL (VIT D SOLUTION) 400 UNIT/1 ML DROPS GT SCH (10:29)
[2019-12-23] MEDS: PANTOPRAZOLE SODIUM 40 MG VIAL IVPUSH SCH (10:29)
[2019-12-23 10:38] LABS: ERYTHROCYTE SEDIMENTATION RATE 124 mm/hr (0-20)
[2019-12-23 10:42] LABS: PLATELET ESTIMATE NORMAL
[2019-12-23] MEDS ORDERED: INSULIN REGULAR HUMAN 100 UNITS/ML *VIAL* (FOR IVP) IVPUSH ONE (11:09)
[2019-12-23] MEDS ORDERED: INSULIN REGULAR 100 UNITS in SODIUM CHLORIDE 99 ML IVPB SCH (11:15)
[2019-12-23] MEDS ORDERED: INSULIN REGULAR HUMAN 100 UNITS/ML *VIAL ONE (11:43)
--- NOTE | 2019-12-23 13:07 | PN ---
Teaching Attending Note Name of Resident: Vicente Gary ATTENDING PHYSICIAN STATEMENT I saw and evaluated the patient. I reviewed the resident's note and discussed the case with the resident. I agree with the resident's findings and plan as documented. SUBJECTIVE: Patient seen and examined in the ICU. Remains intubated and sedated. AC mode of vent, 100% FiO2. Saturation 87%. 5 mcq NE for hemodynamic support. PPlat : 39 Intake & Output 12/20/19 12/21/19 12/22/19 12/23/19 23:59 23:59 23:59 23:59 Intake Total 3748 4596 3132 Output Total 1750 2550 1400 Balance 1997 2045 1731 Last Vital Signs Temp Pulse Resp BP Pulse Ox 96.9 F L 107 H 35 H 112/55 L 84 L 12/23/19 06:00 12/23/19 06:00 12/23/19 08:50 12/23/19 06:00 12/23/19 08:50 Active Medications Albumin Human (Albumin Human 25%) 12.5 gm IVPB Q30M [facility] Stop: 12/23/19 16:01 Albuterol Sulfate (Ventolin Hfa Inhaler -) 2 puff IH Q4H PRN PRN Reason: SHORT OF BREATH/WHEEZING Amino Acids (Prosource No Carb Liquid Pkt) 30 ml PO BID@0800,1730 [facility] Last Admin: 12/23/19 09:04 Dose: 30 ml Documented by: Artificial Tears (Artificial Tears) 1 drop OU TID PRN PRN Reason: Dry eyes Last Admin: 12/21/19 21:52 Dose: 1 drop Documented by: Ascorbic Acid (Vitamin C Oral Solution -) 250 mg NGT BID [facility] Last Admin: 12/23/19 10:29 Dose: 250 mg Documented by: Budesonide/Formoterol Fumarate (Symbicort 160/4.5mcg -) 2 puff IH BID [facility] Last Admin: 12/23/19 10:29 Dose: Not Given Documented by: Chlorhexidine Gluconate (Hibiclens For Decolonization -) 1 applic TP HS [facility] Last Admin: 12/22/19 22:29 Dose: 1 applic Documented by: Cholecalciferol (Vitamin D3 Oral Solution -) 1,000 unit GT DAILY [facility] Last Admin: 12/23/19 10:29 Dose: 1,000 units Documented by: Enoxaparin Sodium (Lovenox -) 80 mg SQ BID [facility] Last Admin: 12/23/19 10:28 Dose: Not Given Documented by: Propofol (Diprivan -) 1,000,000 mcg in 100 mls @ 2.395 mls/hr IVPB TITR [facility]; Protocol Last Admin: 12/23/19 09:56 Dose: 50 mcg/kg/min, 23.95 mls/hr Documented by: Midazolam HCl 100 mg/ Sodium (Chloride) 100 mls @ 1 mls/hr IVPB TITR [facility]; Protocol Last Admin: 12/23/19 10:04 Dose: 10 mg/hr, 10 mls/hr Documented by: Vecuronium [place] (Vecuronium [place]) 100 mg in 100 mls @ 4.79 mls/hr IVPB TITR [facility] Last Admin: 12/22/19 03:15 Dose: 1 mcg/kg/min, 4.79 mls/hr Documented by: Fentanyl (Sublimaze Ivpb) 500 mcg in 100 mls @ 15.966 mls/hr IVPB TITR [facility]; Protocol Last Titration: 12/22/19 04:49 Dose: 0.94 mcg/kg/hr, 15 mls/hr Documented by: Cefepime HCl 1 gm/ Dextrose 100 mls @ 200 mls/hr IVPB BID [facility]; Protocol Last Admin: 12/23/19 10:28 Dose: 200 mls/hr Documented by: Norepinephrine Bitartrate (Levophed Bag) 8,000 mcg in 500 mls @ 18.75 mls/hr IVPB TITR [facility]; Protocol Last Titration: 12/22/19 20:30 Dose: 5 mcg/min, 18.75 mls/hr Documented by: Amino Acids (Clinimix -) 1,000 mls @ 50 mls/hr IV Q20H [facility] Sodium Chloride (Normal Saline -) 250 mls @ 3,000 mls/hr IV PRN PRN PRN Reason: Hypotension during Dialysis Stop: 12/24/19 10:21 Insulin Human Regular 100 (units/ Sodium Chloride) 100 mls @ 3 mls/hr IVPB TITR [facility]; Protocol Insulin Aspart (Novolog Vial Sliding Scale -) 1 vial SQ ACHS [facility]; Protocol Last Admin: 12/23/19 11:39 Dose: Not Given Documented by: Insulin Detemir (Levemir Vial) 15 units SQ HS [facility] Last Admin: 12/22/19 22:29 Dose: 15 units Documented by: Methylprednisolone Sodium Succinate (Solu-Medrol -) 40 mg IVPUSH BID [facility] Last Admin: 12/23/19 10:29 Dose: 40 mg Documented by: Nystatin (Mycostatin Cream -) 1 applic TP BID [facility] Last Admin: 12/23/19 10:28 Dose: 1 applic Documented by: Pantoprazole Sodium (Protonix Iv) 40 mg IVPUSH DAILY [facility] Last Admin: 12/23/19 10:29 Dose: 40 mg Documented by: Sodium Zirconium Cyclosilicate (Lokelma) 10 gm PO DAILY [facility] Last Admin: 12/23/19 10:28 Dose: 10 gm Documented by: Zinc Sulfate (Orazinc -) 220 mg NGT BID [facility] Last Admin: 12/23/19 10:28 Dose: 220 mg Documented by: GEN: intubated, sedated ENT: Sclera clear LUNGS: Vented, bilateral coarse rhonchi CV: S1S2, tachy RRR ABD: Soft, ND, NT+ bowel sounds, no guarding, no rebound EXT: WWP; no edema NEURO: Sedated Laboratory Results - last 24 hr 12/22/19 12/22/19 12/22/19 16:59 17:00 17:00 WBC RBC Hgb Hct MCV MCH MCHC RDW Plt Count MPV Absolute Neuts (auto) Neutrophils % Neutrophils % (Manual) Band Neutrophils % Lymphocytes % Lymphocytes % (Manual) Monocytes % Monocytes % (Manual) Eosinophils % Eosinophils % (Manual) Basophils % Basophils % (Manual) Myelocytes % (Man) Promyelocytes % (Man) Blast Cells % (Manual) Nucleated RBC % Metamyelocytes Platelet Estimate ESR D-Dimer Anticoagulation Therapy Puncture Site Patient Temperature ABG pH ABG pCO2 ABG pO2 ABG HCO3 ABG O2 Sat (Measured) ABG O2 Content ABG Base Excess [place] Test Patient On Oxygen O2 Delivery Device Oxygen Flow Rate Vent Mode Vent Rate Mechanical Rate PEEP Pressure Support Vent Sodium 133 L Potassium 5.4 H Chloride 103 Carbon Dioxide 16 L Anion Gap 14 BUN 106.3 H* Creatinine 2.7 H Est GFR (CKD-EPI)AfAm 23.22 Est GFR (CKD-EPI)NonAf 20.03 POC Glucometer 378 Random Glucose 423 H* Calcium 8.1 L Phosphorus Magnesium Total Bilirubin 1.5 H AST 16 ALT 20 Alkaline Phosphatase 174 H LD Total C-Reactive Protein Total Protein 5.7 L Albumin 1.3 L Triglycerides 541 H Cholesterol 252 H Total LDL Cholesterol 160 H HDL Cholesterol 22 L Random Vancomycin 23.4 12/22/19 12/22/19 12/23/19 19:51 22:48 06:00 WBC RBC Hgb Hct MCV MCH MCHC RDW Plt Count MPV Absolute Neuts (auto) Neutrophils % Neutrophils % (Manual) Band Neutrophils % Lymphocytes % Lymphocytes % (Manual) Monocytes % Monocytes % (Manual) Eosinophils % Eosinophils % (Manual) Basophils % Basophils % (Manual) Myelocytes % (Man) Promyelocytes % (Man) Blast Cells % (Manual) Nucleated RBC % Metamyelocytes Platelet Estimate ESR D-Dimer Anticoagulation Therapy Puncture Site Patient Temperature ABG pH ABG pCO2 ABG pO2 ABG HCO3 ABG O2 Sat (Measured) ABG O2 Content ABG Base Excess [place] Test Patient On Oxygen O2 Delivery Device Oxygen Flow Rate Vent Mode Vent Rate Mechanical Rate PEEP Pressure Support Vent Sodium Potassium Chloride Carbon Dioxide Anion Gap BUN Creatinine Est GFR (CKD-EPI)AfAm Est GFR (CKD-EPI)NonAf POC Glucometer 380 387 Random Glucose Calcium Phosphorus Magnesium Total Bilirubin AST ALT Alkaline Phosphatase LD Total C-Reactive Protein Total Protein Albumin Triglycerides Cholesterol Total LDL Cholesterol HDL Cholesterol Random Vancomycin 22.6 12/23/19 12/23/19 12/23/19 06:00 06:00 06:00 WBC 22.9 H RBC 3.21 L Hgb 8.3 L Hct 26.3 L MCV 82.1 MCH 25.9 MCHC 31.6 L RDW 15.1 Plt Count 246 D MPV 8.9 Absolute Neuts (auto) 21.2 H Neutrophils % 92.5 H Neutrophils % (Manual) 92.6 H Band Neutrophils % 0.0 Lymphocytes % 3.2 L D Lymphocytes % (Manual) 4.2 L Monocytes % 4.1 Monocytes % (Manual) 1 L Eosinophils % 0.1 Eosinophils % (Manual) 0.0 Basophils % 0.1 Basophils % (Manual) 0.0 Myelocytes % (Man) 2 D Promyelocytes % (Man) 0 Blast Cells % (Manual) 0 Nucleated RBC % 1 H Metamyelocytes 0 Platelet Estimate Normal ESR 124 H D-Dimer 1479 H Anticoagulation Therapy Puncture Site Patient Temperature ABG pH ABG pCO2 ABG pO2 ABG HCO3 ABG O2 Sat (Measured) ABG O2 Content ABG Base Excess [place] Test Patient On Oxygen O2 Delivery Device Oxygen Flow Rate Vent Mode Vent Rate Mechanical Rate PEEP Pressure Support Vent Sodium 130 L Potassium 5.6 H Chloride 100 Carbon Dioxide 14 L Anion Gap 16 BUN 110.6 H* Creatinine 3.1 H Est GFR (CKD-EPI)AfAm 19.65 Est GFR (CKD-EPI)NonAf 16.95 POC Glucometer Random Glucose 375 H Calcium 8.1 L Phosphorus 8.9 H Magnesium 3.0 H Total Bilirubin 0.4 AST 19 ALT 20 Alkaline Phosphatase 205 H LD Total 450 H C-Reactive Protein 9.8 H Total Protein 5.8 L Albumin 1.3 L Triglycerides Cholesterol Total LDL Cholesterol HDL Cholesterol Random Vancomycin 12/23/19 12/23/19 12/23/19 06:00 06:15 11:38 WBC RBC Hgb Hct MCV MCH MCHC RDW Plt Count MPV Absolute Neuts (auto) Neutrophils % Neutrophils % (Manual) Band Neutrophils % Lymphocytes % Lymphocytes % (Manual) Monocytes % Monocytes % (Manual) Eosinophils % Eosinophils % (Manual) Basophils % Basophils % (Manual) Myelocytes % (Man) Promyelocytes % (Man) Blast Cells % (Manual) Nucleated RBC % Metamyelocytes Platelet Estimate ESR D-Dimer Anticoagulation Therapy No Result Required. Puncture Site Left radial Patient Temperature No Result Required. ABG pH 7.105 L* ABG pCO2 48.80 H ABG pO2 82.5 ABG HCO3 15.0 L ABG O2 Sat (Measured) 91.8 L ABG O2 Content No Result Required. ABG Base Excess -14.0 L [place] Test Positive Patient On Oxygen Yes O2 Delivery Device Vent Oxygen Flow Rate 90% Vent Mode A/c Vent Rate 35 Mechanical Rate No Result Required. 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 [facility] was contacted. The patient is not a candidate for ECMO therapy due to Renal Failure/HD and being intubated greater than 7 days Conservative IVF LTVV; PPlat goal<30 Continue Steroids Sedation/Paralyze for vent synchrony Full AC Strict Isolation and usage of Full PPE S/P Remdesivir x 5 days S/P Convalescent Plasma treatment Will not give Actemra due to active infectious process Vit C; Vitamin D; Zinc Strict I & O Replete electrolytes Overall prognosis appears grave Dr Rivas Critical care time spent in reviewing chart, evaluating patient and formulating plan - 36 minutes.
--- NOTE | 2019-12-23 13:09 | PROC ---
Central Line Insertion Indication: Other (HD) Risks and Benefits Explained: Yes Consent on Chart: Yes Central Line: Dialysis Cath, Tri Lumen Anesthesia: 1% Lidocaine Sterile Technique: Yes Ultrasound Guided Assistance: Yes Position: Right Internal Jugular Post Insertion: Yes: Bilateral Breath Sounds, Bilateral Chest Expansion, Chest X-Ray Ordered Sterile Dressing Applied: Yes
[2019-12-23] MEDS: ALBUMIN HUMAN 25% 12.5 GM/50 ML VIAL IVPB SCH ×4 (14:30→16:00)
--- NOTE | 2019-12-23 14:41 | PN ---
Physical Exam: SUBJECTIVE: Patient seen and examined OBJECTIVE: Vital Signs Period Temp Pulse Resp BP Sys/Aguilar Pulse Ox Last 24 Hr 96.9 F-97.6 F 102-113 32-35 95-136/50-63 84-100 GENERAL: The patient is awake, alert, and fully oriented, in no acute distress. HEAD: Normal with no signs of trauma. EYES: PERRL, extraocular movements intact, sclera anicteric, conjunctiva clear. No ptosis. ENT: Ears normal, nares patent, oropharynx clear without exudates, moist mucous membranes. NECK: Trachea midline, full range of motion, supple. LUNGS: Breath sounds equal, clear to auscultation bilaterally, no wheezes, no crackles, no accessory muscle use. HEART: Regular rate and rhythm, S1, S2 without murmur, rub or gallop. ABDOMEN: Soft, nontender, nondistended, normoactive bowel sounds, no guarding, no rebound, no hepatosplenomegaly, no masses. EXTREMITIES: 2+ pulses, warm, well-perfused, no edema. NEUROLOGICAL: Cranial nerves II through XII grossly intact. Normal speech, gait not observed. PSYCH: Normal mood, normal affect. SKIN: Warm, dry, normal turgor, no rashes or lesions noted Laboratory Results - last 24 hr 12/22/19 12/22/19 12/22/19 16:59 17:00 17:00 WBC RBC Hgb Hct MCV MCH MCHC RDW Plt Count MPV Absolute Neuts (auto) Neutrophils % Neutrophils % (Manual) Band Neutrophils % Lymphocytes % Lymphocytes % (Manual) Monocytes % Monocytes % (Manual) Eosinophils % Eosinophils % (Manual) Basophils % Basophils % (Manual) Myelocytes % (Man) Promyelocytes % (Man) Blast Cells % (Manual) Nucleated RBC % Metamyelocytes Platelet Estimate ESR D-Dimer Anticoagulation Therapy Puncture Site Patient Temperature ABG pH ABG pCO2 ABG pO2 ABG HCO3 ABG O2 Sat (Measured) ABG O2 Content ABG Base Excess [place] Test Patient On Oxygen O2 Delivery Device Oxygen Flow Rate Vent Mode Vent Rate Mechanical Rate PEEP Pressure Support Vent Sodium 133 L Potassium 5.4 H Chloride 103 Carbon Dioxide 16 L Anion Gap 14 BUN 106.3 H* Creatinine 2.7 H Est GFR (CKD-EPI)AfAm 23.22 Est GFR (CKD-EPI)NonAf 20.03 POC Glucometer 378 Random Glucose 423 H* Calcium 8.1 L Phosphorus Magnesium Total Bilirubin 1.5 H AST 16 ALT 20 Alkaline Phosphatase 174 H LD Total C-Reactive Protein Total Protein 5.7 L Albumin 1.3 L Triglycerides 541 H Cholesterol 252 H Total LDL Cholesterol 160 H HDL Cholesterol 22 L Random Vancomycin 23.4 12/22/19 12/22/19 12/23/19 19:51 22:48 06:00 WBC RBC Hgb Hct MCV MCH MCHC RDW Plt Count MPV Absolute Neuts (auto) Neutrophils % Neutrophils % (Manual) Band Neutrophils % Lymphocytes % Lymphocytes % (Manual) Monocytes % Monocytes % (Manual) Eosinophils % Eosinophils % (Manual) Basophils % Basophils % (Manual) Myelocytes % (Man) Promyelocytes % (Man) Blast Cells % (Manual) Nucleated RBC % Metamyelocytes Platelet Estimate ESR D-Dimer Anticoagulation Therapy Puncture Site Patient Temperature ABG pH ABG pCO2 ABG pO2 ABG HCO3 ABG O2 Sat (Measured) ABG O2 Content ABG Base Excess [place] Test Patient On Oxygen O2 Delivery Device Oxygen Flow Rate Vent Mode Vent Rate Mechanical Rate PEEP Pressure Support Vent Sodium Potassium Chloride Carbon Dioxide Anion Gap BUN Creatinine Est GFR (CKD-EPI)AfAm Est GFR (CKD-EPI)NonAf POC Glucometer 380 387 Random Glucose Calcium Phosphorus Magnesium Total Bilirubin AST ALT Alkaline Phosphatase LD Total C-Reactive Protein Total Protein Albumin Triglycerides Cholesterol Total LDL Cholesterol HDL Cholesterol Random Vancomycin 22.6 12/23/19 12/23/19 12/23/19 06:00 06:00 06:00 WBC 22.9 H RBC 3.21 L Hgb 8.3 L Hct 26.3 L MCV 82.1 MCH 25.9 MCHC 31.6 L RDW 15.1 Plt Count 246 D MPV 8.9 Absolute Neuts (auto) 21.2 H Neutrophils % 92.5 H Neutrophils % (Manual) 92.6 H Band Neutrophils % 0.0 Lymphocytes % 3.2 L D Lymphocytes % (Manual) 4.2 L Monocytes % 4.1 Monocytes % (Manual) 1 L Eosinophils % 0.1 Eosinophils % (Manual) 0.0 Basophils % 0.1 Basophils % (Manual) 0.0 Myelocytes % (Man) 2 D Promyelocytes % (Man) 0 Blast Cells % (Manual) 0 Nucleated RBC % 1 H Metamyelocytes 0 Platelet Estimate Normal ESR 124 H D-Dimer 1479 H Anticoagulation Therapy Puncture Site Patient Temperature ABG pH ABG pCO2 ABG pO2 ABG HCO3 ABG O2 Sat (Measured) ABG O2 Content ABG Base Excess [place] Test Patient On Oxygen O2 Delivery Device Oxygen Flow Rate Vent Mode Vent Rate Mechanical Rate PEEP Pressure Support Vent Sodium 130 L Potassium 5.6 H Chloride 100 Carbon Dioxide 14 L Anion Gap 16 BUN 110.6 H* Creatinine 3.1 H Est GFR (CKD-EPI)AfAm 19.65 Est GFR (CKD-EPI)NonAf 16.95 POC Glucometer Random Glucose 375 H Calcium 8.1 L Phosphorus 8.9 H Magnesium 3.0 H Total Bilirubin 0.4 AST 19 ALT 20 Alkaline Phosphatase 205 H LD Total 450 H C-Reactive Protein 9.8 H Total Protein 5.8 L Albumin 1.3 L Triglycerides Cholesterol Total LDL Cholesterol HDL Cholesterol Random Vancomycin 12/23/19 12/23/19 12/23/19 06:00 06:15 11:38 WBC RBC Hgb Hct MCV MCH MCHC RDW Plt Count MPV Absolute Neuts (auto) Neutrophils % Neutrophils % (Manual) Band Neutrophils % Lymphocytes % Lymphocytes % (Manual) Monocytes % Monocytes % (Manual) Eosinophils % Eosinophils % (Manual) Basophils % Basophils % (Manual) Myelocytes % (Man) Promyelocytes % (Man) Blast Cells % (Manual) Nucleated RBC % Metamyelocytes Platelet Estimate ESR D-Dimer Anticoagulation Therapy No Result Required. Puncture Site Left radial Patient Temperature No Result Required. ABG pH 7.105 L* ABG pCO2 48.80 H ABG pO2 82.5 ABG HCO3 15.0 L ABG O2 Sat (Measured) 91.8 L ABG O2 Content No Result Required. ABG Base Excess -14.0 L [place] Test Positive Patient On Oxygen Yes O2 Delivery Device Vent Oxygen Flow Rate 90% Vent Mode A/c Vent Rate 35 Mechanical Rate No Result Required. PEEP 10.0 Pressure Support Vent 350 Sodium Potassium Chloride Carbon Dioxide Anion Gap BUN Creatinine Est GFR (CKD-EPI)AfAm Est GFR (CKD-EPI)NonAf POC Glucometer 314 396 Random Glucose Calcium Phosphorus Magnesium Total Bilirubin AST ALT Alkaline Phosphatase LD Total C-Reactive Protein Total Protein Albumin Triglycerides Cholesterol Total LDL Cholesterol HDL Cholesterol Random Vancomycin 12/23/19 12/23/19 13:06 14:01 WBC RBC Hgb Hct MCV MCH MCHC RDW Plt Count MPV Absolute Neuts (auto) Neutrophils % Neutrophils % (Manual) Band Neutrophils % Lymphocytes % Lymphocytes % (Manual) Monocytes % Monocytes % (Manual) Eosinophils % Eosinophils % (Manual) Basophils % Basophils % (Manual) Myelocytes % (Man) Promyelocytes % (Man) Blast Cells % (Manual) Nucleated RBC % Metamyelocytes Platelet Estimate ESR D-Dimer Anticoagulation Therapy Puncture Site Patient Temperature ABG pH ABG pCO2 ABG pO2 ABG HCO3 ABG O2 Sat (Measured) ABG O2 Content ABG Base Excess [place] Test Patient On Oxygen O2 Delivery Device Oxygen Flow Rate Vent Mode Vent Rate Mechanical Rate PEEP Pressure Support Vent Sodium Potassium Chloride Carbon Dioxide Anion Gap BUN Creatinine Est GFR (CKD-EPI)AfAm Est GFR (CKD-EPI)NonAf POC Glucometer 416 384 Random Glucose Calcium Phosphorus Magnesium Total Bilirubin AST ALT Alkaline Phosphatase LD Total C-Reactive Protein Total Protein Albumin Triglycerides Cholesterol Total LDL Cholesterol HDL Cholesterol Random Vancomycin Active Medications Generic Name Dose Route Start Last Admin Trade Name Freq PRN Reason Stop Dose Admin Albumin Human 12.5 gm 12/23/19 14:30 Albumin Human 25% IVPB 12/23/19 16:01 Q30M [facility]O Albuterol Sulfate 2 puff 12/15/19 04:44 Ventolin Hfa Inhaler - IH Q4H PRN SHORT OF BREATH/WHEEZING Amino Acids 30 ml 12/18/19 17:30 12/23/19 09:04 Prosource No Carb Liquid Pkt PO 30 ml BID@0800,1730 [facility] Administration Artificial Tears 1 drop 12/15/19 09:04 12/21/19 21:52 Artificial Tears OU 1 drop TID PRN Administration Dry eyes Ascorbic Acid 250 mg 12/15/19 22:00 12/23/19 10:29 Vitamin C Oral Solution - NGT 250 mg BID [facility]O Administration Budesonide/Formoterol Fumarate 2 puff 12/22/19 22:00 12/23/19 10:29 Symbicort 160/4.5mcg - IH Not Given BID [facility] Chlorhexidine Gluconate 1 applic 12/15/19 22:00 12/22/19 22:29 Hibiclens For Decolonization - TP 1 applic HS ROC[facility]O Administration Cholecalciferol 1,000 unit 12/16/19 10:00 12/23/19 10:29 Vitamin D3 Oral Solution - GT 1,000 units DAILY [facility] Administration Enoxaparin Sodium 80 mg 12/15/19 10:00 12/23/19 10:28 Lovenox - SQ Not Given BID ROC[facility] Propofol 1,000,000 mcg in 100 mls @ 2.395 mls/hr 12/15/19 03:45 12/23/19 09:56 Diprivan - IVPB 50 mcg/kg/min TITR [facility] 23.95 mls/hr Administration Protocol 5 MCG/KG/MIN Midazolam HCl 100 mg/ Sodium 100 mls @ 1 mls/hr 12/15/19 04:00 12/23/19 10:04 Chloride IVPB 10 mg/hr TITR ROC[facility] 10 mls/hr Administration Protocol 1 MG/HR Vecuronium Brady 100 mg in 100 mls @ 4.79 mls/hr 12/15/19 04:15 12/22/19 03:15 Vecuronium Brady IVPB 1 mcg/kg/min TITR ROC[facility] 4.79 mls/hr Administration 1 MCG/KG/MIN Fentanyl 500 mcg in 100 mls @ 15.966 mls/hr 12/17/19 11:30 12/22/19 04:49 Sublimaze Ivpb IVPB 0.94 mcg/kg/hr TITR ROC[facility] 15 mls/hr Titration Protocol 1 MCG/KG/HR Cefepime HCl 1 gm/ Dextrose 100 mls @ 200 mls/hr 12/22/19 22:00 12/23/19 10:28 IVPB 200 mls/hr BID [facility] Administration Protocol Norepinephrine Bitartrate 8,000 mcg in 500 mls @ 18.75 mls/hr 12/22/19 19:45 12/22/19 20:30 Levophed Bag IVPB 5 mcg/min TITR ROC[facility]O 18.75 mls/hr Titration Protocol 5 MCG/MIN Amino Acids 1,000 mls @ 50 mls/hr 12/23/19 08:51 Clinimix - IV Q20H ROC[facility]O Sodium Chloride 250 mls @ 3,000 mls/hr 12/23/19 10:21 Normal Saline - IV 12/24/19 10:21 PRN PRN Hypotension during Dialysis Insulin Human Regular 100 100 mls @ 3 mls/hr 12/23/19 11:15 units/ Sodium Chloride IVPB TITR ROC[facility] Protocol 3 UNITS/HR Insulin Aspart 1 vial 12/15/19 07:00 12/23/19 11:39 Novolog Vial Sliding Scale - SQ Not Given ACHS [facility] Protocol Insulin Detemir 15 units 12/22/19 21:27 12/22/19 22:29 Levemir Vial SQ 15 units HS [facility] Administration Methylprednisolone Sodium Succinate 40 mg 12/15/19 10:00 12/23/19 10:29 Solu-Medrol - IVPUSH 40 mg BID [facility]O Administration Nystatin 1 applic 12/18/19 12:00 12/23/19 10:28 Mycostatin Cream - TP 1 applic BID [facility]O Administration Pantoprazole Sodium 40 mg 12/16/19 10:00 12/23/19 10:29 Protonix Iv IVPUSH 40 mg DAILY [facility] Administration Sodium Zirconium Cyclosilicate 10 gm 12/23/19 09:15 12/23/19 10:28 Lokelma PO 10 gm DAILY [facility] Administration Zinc Sulfate 220 mg 12/15/19 22:00 12/23/19 10:28 Orazinc - NGT 220 mg BID ROC[facility]O Administration ASSESSMENT/PLAN: ATTENDING PHYSICIAN STATEMENT I saw and evaluated the patient. I reviewed the resident's note and discussed the case with the resident. I agree with the resident's findings and plan as documented. SUBJECTIVE: OBJECTIVE: ASSESSMENT AND PLAN:
[2019-12-23] MEDS ORDERED: SODIUM BICARBONATE 8.4% - 50 ML ONE (14:52)
[2019-12-23] MEDS: VECURONIUM BROMIDE 100 MG/100 ML BAG IVPB SCH (14:53)
[2019-12-23] MEDS: FENTANYL IVPB 500 MCG/100 ML BAG IVPB SCH (14:54)
--- NOTE | 2019-12-23 15:59 | PN ---
Progress Note, Physician History of Present Illness: Pt seen and examined at bedside. She remains in the ICU. She remains intubated. It is difficult to ventilate her. Her renal function is worsening. - Current Medication List Current Medications: Active Medications Albumin Human (Albumin Human 25%) 12.5 gm IVPB Q30M [facility] Stop: 12/23/19 16:01 Albuterol Sulfate (Ventolin Hfa Inhaler -) 2 puff IH Q4H PRN PRN Reason: SHORT OF BREATH/WHEEZING Amino Acids (Prosource No Carb Liquid Pkt) 30 ml PO BID@0800,1730 [facility] Last Admin: 12/23/19 09:04 Dose: 30 ml Documented by: Artificial Tears (Artificial Tears) 1 drop OU TID PRN PRN Reason: Dry eyes Last Admin: 12/21/19 21:52 Dose: 1 drop Documented by: Ascorbic Acid (Vitamin C Oral Solution -) 250 mg NGT BID [facility] Last Admin: 12/23/19 10:29 Dose: 250 mg Documented by: Budesonide/Formoterol Fumarate (Symbicort 160/4.5mcg -) 2 puff IH BID [facility] Last Admin: 12/23/19 10:29 Dose: Not Given Documented by: Chlorhexidine Gluconate (Hibiclens For Decolonization -) 1 applic TP HS [facility] Last Admin: 12/22/19 22:29 Dose: 1 applic Documented by: Cholecalciferol (Vitamin D3 Oral Solution -) 1,000 unit GT DAILY [facility] Last Admin: 12/23/19 10:29 Dose: 1,000 units Documented by: Enoxaparin Sodium (Lovenox -) 80 mg SQ BID [facility] Last Admin: 12/23/19 10:28 Dose: Not Given Documented by: Propofol (Diprivan -) 1,000,000 mcg in 100 mls @ 2.395 mls/hr IVPB TITR [facility]; Protocol Last Admin: 12/23/19 09:56 Dose: 50 mcg/kg/min, 23.95 mls/hr Documented by: Midazolam HCl 100 mg/ Sodium (Chloride) 100 mls @ 1 mls/hr IVPB TITR [facility]; Protocol Last Admin: 12/23/19 10:04 Dose: 10 mg/hr, 10 mls/hr Documented by: Vecuronium Mccarley (Vecuronium Mccarley) 100 mg in 100 mls @ 4.79 mls/hr IVPB TITR [facility] Last Admin: 12/23/19 14:53 Dose: 1.3 mcg/kg/min, 6.227 mls/hr Documented by: Fentanyl (Sublimaze Ivpb) 500 mcg in 100 mls @ 15.966 mls/hr IVPB TITR [facility]; Protocol Last Admin: 12/23/19 14:54 Dose: 0.94 mcg/kg/hr, 15 mls/hr Documented by: Cefepime HCl 1 gm/ Dextrose 100 mls @ 200 mls/hr IVPB BID [facility]; Protocol Last Admin: 12/23/19 10:28 Dose: 200 mls/hr Documented by: Norepinephrine Bitartrate (Levophed Bag) 8,000 mcg in 500 mls @ 18.75 mls/hr IVPB TITR [facility]; Protocol Last Titration: 12/22/19 20:30 Dose: 5 mcg/min, 18.75 mls/hr Documented by: Amino Acids (Clinimix -) 1,000 mls @ 50 mls/hr IV Q20H [facility] Sodium Chloride (Normal Saline -) 250 mls @ 3,000 mls/hr IV PRN PRN PRN Reason: Hypotension during Dialysis Stop: 12/24/19 10:21 Insulin Human Regular 100 (units/ Sodium Chloride) 100 mls @ 3 mls/hr IVPB TITR [facility]; Protocol Last Titration: 12/23/19 15:52 Dose: 4 units/hr, 4 mls/hr Documented by: Insulin Aspart (Novolog Vial Sliding Scale -) 1 vial SQ ACHS [facility]; Protocol Last Admin: 12/23/19 15:51 Dose: Not Given Documented by: Insulin Detemir (Levemir Vial) 15 units SQ HS [facility] Last Admin: 12/22/19 22:29 Dose: 15 units Documented by: Methylprednisolone Sodium Succinate (Solu-Medrol -) 40 mg IVPUSH BID [facility] Last Admin: 12/23/19 10:29 Dose: 40 mg Documented by: Nystatin (Mycostatin Cream -) 1 applic TP BID [facility] Last Admin: 12/23/19 10:28 Dose: 1 applic Documented by: Pantoprazole Sodium (Protonix Iv) 40 mg IVPUSH DAILY [facility] Last Admin: 12/23/19 10:29 Dose: 40 mg Documented by: Sodium Zirconium Cyclosilicate (Lokelma) 10 gm PO DAILY [facility] Last Admin: 12/23/19 10:28 Dose: 10 gm Documented by: Zinc Sulfate (Orazinc -) 220 mg NGT BID [facility] Last Admin: 12/23/19 10:28 Dose: 220 mg Documented by: - Objective Vital Signs: Vital Signs Temperature 96.9 F L 12/23/19 06:00 Pulse Rate 103 H 12/23/19 14:25 Respiratory Rate 20 12/23/19 14:25 Blood Pressure 154/73 12/23/19 14:25 O2 Sat by Pulse Oximetry (%) 84 L 12/23/19 13:30 Constitutional: Yes: Calm Eyes: Yes: Conjunctiva Clear HENT: Yes: Atraumatic Neck: Yes: Supple Cardiovascular: Yes: S1, S2 Respiratory: Yes: Mechanically Ventilated Gastrointestinal: Yes: Soft Genitourinary: Yes: [place] Present Musculoskeletal: Yes: Muscle Weakness Edema: Yes Edema: LUE: Trace, RUE: Trace, LLE: Trace, RLE: Trace Neurological: Yes: Lethargy Labs: CBC, BMP 12/23/19 06:00 12/23/19 06:00 INR, PTT INR 0.92 (0.83-1.09) 12/05/19 06:15 - ....Imaging Chest X-ray: Report Reviewed Problem List - Problems (1) NELLIE (acute kidney injury) Code(s): N17.9 - ACUTE KIDNEY FAILURE, UNSPECIFIED (2) Acute respiratory failure Code(s): J96.00 - ACUTE RESPIRATORY FAILURE, UNSP W HYPOXIA OR HYPERCAPNIA Qualifiers: Respiratory failure complication: hypoxia Qualified Code(s): J96.01 - Acute respiratory failure with hypoxia (3) COVID-19 Code(s): U07.1 - COVID POSITIVE Assessment/Plan Current Medications Generic Name Dose Route Start Last Admin Trade Name Freq PRN Reason Stop Dose Admin Albumin Human 12.5 gm 12/23/19 14:30 Albumin Human 25% IVPB 12/23/19 16:01 Q30M [facility] Albuterol Sulfate 2 puff 12/15/19 04:44 Ventolin Hfa Inhaler - IH Q4H PRN SHORT OF BREATH/WHEEZING Amino Acids 30 ml 12/18/19 17:30 12/23/19 09:04 Prosource No Carb Liquid Pkt PO 30 ml BID@0800,1730 [facility] Administration Artificial Tears 1 drop 12/15/19 09:04 12/21/19 21:52 Artificial Tears OU 1 drop TID PRN Administration Dry eyes Ascorbic Acid 250 mg 12/15/19 22:00 12/23/19 10:29 Vitamin C Oral Solution - NGT 250 mg BID [facility] Administration Budesonide/Formoterol Fumarate 2 puff 12/22/19 22:00 12/23/19 10:29 Symbicort 160/4.5mcg - IH Not Given BID [facility] Chlorhexidine Gluconate 1 applic 12/15/19 22:00 12/22/19 22:29 Hibiclens For Decolonization - TP 1 applic HS [facility] Administration Cholecalciferol 1,000 unit 12/16/19 10:00 12/23/19 10:29 Vitamin D3 Oral Solution - GT 1,000 units DAILY [facility] Administration Enoxaparin Sodium 80 mg 12/15/19 10:00 12/23/19 10:28 Lovenox - SQ Not Given BID [facility] Propofol 1,000,000 mcg in 100 mls @ 2.395 mls/hr 12/15/19 03:45 12/23/19 09:56 Diprivan - IVPB 50 mcg/kg/min TITR [facility] 23.95 mls/hr Administration Protocol 5 MCG/KG/MIN Midazolam HCl 100 mg/ Sodium 100 mls @ 1 mls/hr 12/15/19 04:00 12/23/19 10:04 Chloride IVPB 10 mg/hr TITR [facility]O 10 mls/hr Administration Protocol 1 MG/HR Vecuronium Mccarley 100 mg in 100 mls @ 4.79 mls/hr 12/15/19 04:15 12/23/19 14:53 Vecuronium Mccarley IVPB 1.3 mcg/kg/min TITR [facility] 6.227 mls/hr Administration 1 MCG/KG/MIN Fentanyl 500 mcg in 100 mls @ 15.966 mls/hr 12/17/19 11:30 12/23/19 14:54 Sublimaze Ivpb IVPB 0.94 mcg/kg/hr TITR [facility] 15 mls/hr Administration Protocol 1 MCG/KG/HR Cefepime HCl 1 gm/ Dextrose 100 mls @ 200 mls/hr 12/22/19 22:00 12/23/19 10:28 IVPB 200 mls/hr BID [facility] Administration Protocol Norepinephrine Bitartrate 8,000 mcg in 500 mls @ 18.75 mls/hr 12/22/19 19:45 12/22/19 20:30 Levophed Bag IVPB 5 mcg/min TITR [facility] 18.75 mls/hr Titration Protocol 5 MCG/MIN Amino Acids 1,000 mls @ 50 mls/hr 12/23/19 08:51 Clinimix - IV Q20H [facility] Sodium Chloride 250 mls @ 3,000 mls/hr 12/23/19 10:21 Normal Saline - IV 12/24/19 10:21 PRN PRN Hypotension during Dialysis Insulin Human Regular 100 100 mls @ 3 mls/hr 12/23/19 11:15 12/23/19 15:52 units/ Sodium Chloride IVPB 4 units/hr TITR [facility] 4 mls/hr Titration Protocol 3 UNITS/HR Insulin Aspart 1 vial 12/15/19 07:00 12/23/19 15:51 Novolog Vial Sliding Scale - SQ Not Given ACHS [facility] Protocol Insulin Detemir 15 units 12/22/19 21:27 12/22/19 22:29 Levemir Vial SQ 15 units HS [facility] Administration Methylprednisolone Sodium Succinate 40 mg 12/15/19 10:00 12/23/19 10:29 Solu-Medrol - IVPUSH 40 mg BID [facility] Administration Nystatin 1 applic 12/18/19 12:00 12/23/19 10:28 Mycostatin Cream - TP 1 applic BID [facility] Administration Pantoprazole Sodium 40 mg 12/16/19 10:00 12/23/19 10:29 Protonix Iv IVPUSH 40 mg DAILY [facility] Administration Sodium Zirconium Cyclosilicate 10 gm 12/23/19 09:15 12/23/19 10:28 Lokelma PO 10 gm DAILY [facility] Administration Zinc Sulfate 220 mg 12/15/19 22:00 12/23/19 10:28 Orazinc - NGT 220 mg BID [facility] Administration Impression 1. NELLIE 2. covid 3. resp failure requiring intubation 4. dm 5. htn 6. gastroparesis 7. sepsis 8. elevated vanco level 9. hyperkalemia Plan - renal function worsening - potassium elevated and pt acidotic - called and discussed with family - will start HD today - family provided consent - cent vent support - maintain map 65 - pt has worsening inflammatory markers - s/p Remdesivir x 5 days - s/p Convalescent Plasma treatment - cont to monitor lytes - monitor urine output - cont ICU care
[2019-12-23] MEDS ORDERED: PROPOFOL 1,000,000 MCG/100 ML VIAL ONE (18:22)
[2019-12-23 19:21] LABS: ARTERIAL BLD GAS O2 SATURATION 98.3 mmHg (95-98); ARTERIAL BLOOD GAS PO2 140.7 mmHg (80-100)
[2019-12-23 19:24] LABS: ALLENS TEST POSITIVE
[2019-12-23 19:25] LABS: VENT MODE A/C; VENT RATE 35
[2019-12-23] MEDS: CHLORHEXIDINE GLUCONATE 4% CLEANSER FOR DECOLONIZATION TP SCH (22:56)
[2019-12-24] MEDS ORDERED: MIDAZOLAM IN 0.9 % SOD.CHLORID 1 MG/1 ML PLAST..BAG ONE (02:28)
[2019-12-24] MEDS: INSULIN (LEVEMIR) 100 UNITS/ML UNITS SQ SCH ×2 (03:49→23:20)
[2019-12-24] MEDS: AMINO ACIDS 4.25%/D5W 1,000 ML IV SCH ×2 (06:34→09:33)
[2019-12-24] MEDS: INSULIN SLIDING SCALE (NOVOLOG) 1 VIAL SQ SCH ×5 (06:34→23:19)
[2019-12-24 07:11] LABS: BASO % 0.1 % (0-2.0); EOS % 0.1 % (0-4.5); HEMATOCRIT 25.1 % (32.4-45.2); HEMOGLOBIN 8.1 GM/dL (10.7-15.3); LYMPH % 3.7 % (8-40); MCHC 32.4 g/dl (32.0-36.0); MEAN CELL VOLUME 80.1 fl (80-96); MONO % 4.5 % (3.8-10.2); NEUT % 91.6 % (42.8-82.8); PLATELET COUNT 215 K/MM3 (134-434); RBC 3.13 M/mm3 (3.60-5.2); WHITE BLOOD COUNT 27.6 K/mm3 (4.0-10.0)
[2019-12-24 07:39] LABS: POTASSIUM 3.7 mmol/L (3.5-5.1)
[2019-12-24 08:09] LABS: ALBUMIN 1.2 g/dl (3.4-5.0); CALCIUM 7.4 mg/dL (8.5-10.1); CREATININE 2.4 mg/dL (0.55-1.3); MAGNESIUM 2.3 mg/dL (1.8-2.4); PHOSPHOROUS 6.1 mg/dL (2.5-4.9); TOT PROT 5.7 g/dl (6.4-8.2)
[2019-12-24 08:21] LABS: BILIRUBIN,TOTAL 0.3 mg/dL (0.2-1); BLOOD UREA NITROGEN 76.3 mg/dL (7-18)
[2019-12-24] MEDS ORDERED: KCL 10 MEQ IVPB 10 MEQ/100 ML INFUS.BAG IVPB SCH (08:30)
[2019-12-24 08:46] LABS: ANISOCYTOSIS 1+; MACROCYTOSIS 0; PLATELET ESTIMATE NORMAL
[2019-12-24] MEDS ORDERED: INSULIN (NOVOLOG) ASPART 100 UNITS/ML 10ML VIAL SQ ONE (09:16)
[2019-12-24] MEDS: PROPOFOL 1,000,000 MCG/100 ML VIAL IVPB SCH ×2 (09:33→13:07)
[2019-12-24] MEDS: FENTANYL IVPB 500 MCG/100 ML BAG IVPB SCH ×2 (09:35→16:33)
[2019-12-24 10:00] LABS: ERYTHROCYTE SEDIMENTATION RATE > 140 mm/hr (0-20)
[2019-12-24] MEDS: CHOLECALCIFEROL (VIT D SOLUTION) 400 UNIT/1 ML DROPS GT SCH (10:30)
[2019-12-24] MEDS ORDERED: PT OWN MED DRAWER 7, Y5N ONE ×2 (10:52→15:34)
[2019-12-24] MEDS ORDERED: CEFEPIME HCL 1 GM VIAL (RESTRICTED TO ID) ONE ×2 (10:53→21:07)
[2019-12-24] MEDS ORDERED: DEXTROSE 5%-WATER 100 ML IVPB ONE ×2 (10:53→21:07)
[2019-12-24] MEDS: methylPREDNISolone NA SUCC 40 MG/1 ML VIAL IVPUSH SCH ×2 (11:02→23:19)
[2019-12-24] MEDS: PANTOPRAZOLE SODIUM 40 MG VIAL IVPUSH SCH (11:03)
[2019-12-24] MEDS: SODIUM ZIRCONIUM CYCLOSILICATE (LOKELMA) 5 GM PACKET PO SCH (11:04)
[2019-12-24] MEDS: AMINO ACIDS/PROTEIN HYDROLYS 30 ML LIQUID.PKT PO SCH ×3 (11:04→18:17)
[2019-12-24] MEDS: ASCORBIC ACID 500 MG/5 ML UNIT DOSE CUP NGT SCH ×2 (11:06→23:19)
[2019-12-24] MEDS: ENOXAPARIN NA (PORCINE) 80 MG/0.8 ML DISP.SYRIN SQ SCH ×2 (11:06→23:15)
[2019-12-24] MEDS: ZINC SULFATE 220 MG CAPSULE (FP) NGT SCH ×2 (11:06→23:19)
[2019-12-24] MEDS: CEFEPIME 1 GM in DEXTROSE 5%-WATER 100 ML IVPB SCH ×2 (11:07→23:15)
[2019-12-24] MEDS: NYSTATIN 100,000 UNIT/GM TOPICAL CREAM 15 GM TUBE TP SCH ×2 (11:45→23:15)
[2019-12-24] MEDS: ARTIFICIAL TEARS (POLYVINYL ALCOHOL) OPTH DROPS OU PRN (11:46)
--- NOTE | 2019-12-24 12:18 | PN ---
Physical Exam: SUBJECTIVE: Patient seen and examined. Unproned today. O2 sats >90% on 75% FiO2. OBJECTIVE: Vital Signs Period Temp Pulse Resp BP Sys/Aguilar Pulse Ox Last 24 Hr 96.9 F-97.5 F 99-111 20-35 98-174/47-98 84-100 GENERAL: Supine lying in bed. Sedated. HEENT: ET tube in place. Face is edematous. LUNGS: B/l crackles noted HEART: Regular rate and rhythm, S1, S2 without murmur, rub or gallop. ABDOMEN: Soft, nontender, nondistended, normoactive bowel soundg EXTREMITIES: 2+ pulses, warm, well-perfused, no edema. NEUROLOGICAL: unable to assess SKIN: Warm, dry, normal turgor, no rashes or lesions noted Laboratory Results - last 24 hr Laboratory Last Values WBC 27.6 K/mm3 (4.0-10.0) H 12/24/19 06:00 RBC 3.13 M/mm3 (3.60-5.2) L 12/24/19 06:00 Hgb 8.1 GM/dL (10.7-15.3) L 12/24/19 06:00 Hct 25.1 % (32.4-45.2) L 12/24/19 06:00 MCV 80.1 fl (80-96) 12/24/19 06:00 MCH 26.0 pg (25.7-33.7) 12/24/19 06:00 MCHC 32.4 g/dl (32.0-36.0) 12/24/19 06:00 RDW 15.0 % (11.6-15.6) 12/24/19 06:00 Plt Count 215 K/MM3 (134-434) 12/24/19 06:00 MPV 9.0 fl (7.5-11.1) 12/24/19 06:00 Absolute Neuts (auto) 25.3 K/mm3 (1.5-8.0) H 12/24/19 06:00 Total Counted 100 12/15/19 02:03 Neutrophils % 91.6 % (42.8-82.8) H 12/24/19 06:00 Neutrophils % (Manual) 92.6 % (42.8-82.8) H 12/24/19 06:00 Band Neutrophils % 0.0 % 12/24/19 06:00 Lymphocytes % 3.7 % (8-40) L 12/24/19 06:00 Lymphocytes % (Manual) 3.2 % (8-40) L D 12/24/19 06:00 Monocytes % 4.5 % (3.8-10.2) 12/24/19 06:00 Monocytes % (Manual) 3 % (3.8-10.2) L D 12/24/19 06:00 Eosinophils % 0.1 % (0-4.5) 12/24/19 06:00 Eosinophils % (Manual) 0.0 % (0-4.5) 12/24/19 06:00 Basophils % 0.1 % (0-2.0) 12/24/19 06:00 Basophils % (Manual) 0.0 % (0-2.0) 12/24/19 06:00 Myelocytes % (Man) 1 % (0-2) D 12/24/19 06:00 Promyelocytes % (Man) 0 % (0-2) 12/24/19 06:00 Blast Cells % (Manual) 0 % (0-0) 12/24/19 06:00 Nucleated RBC % 0 % (0-0) 12/24/19 06:00 Metamyelocytes 0 % (0-2) 12/24/19 06:00 Hypochromia 0 12/24/19 06:00 Platelet Estimate Normal 12/24/19 06:00 Platelet Comment Present 12/20/19 06:00 Platelet Comment No clumping noted 12/15/19 02:03 Polychromasia 0 12/24/19 06:00 Poikilocytosis 0 12/24/19 06:00 Basophilic Stippling 1+ 12/21/19 06:00 Anisocytosis 1+ 12/24/19 06:00 Microcytosis 1+ 12/24/19 06:00 Macrocytosis 0 12/24/19 06:00 Tear Drop Cells 1+ 12/21/19 06:00 Len Cells 1+ 12/21/19 06:00 ESR > 140 mm/hr (0-20) H 12/24/19 06:00 PT with INR 10.80 SEC (9.7-13.0) 12/05/19 06:15 INR 0.92 (0.83-1.09) 12/05/19 06:15 PTT (Actin FS) 29.2 SECONDS (25.2-36.5) 12/05/19 06:15 D-Dimer 1479 ng/ml (0-500) H 12/23/19 06:00 Anticoagulation Therapy No Result Required. 12/24/19 11:55 Puncture Site Right radial 12/24/19 11:55 Patient Temperature No Result Required. 12/24/19 11:55 ABG pH 7.219 (7.350-7.450) L 12/24/19 11:55 ABG pCO2 48.20 mmHg (35-45) H 12/24/19 11:55 ABG pO2 87.7 mmHg (80-100) 12/24/19 11:55 ABG HCO3 19.2 mmol/L (22-27) L 12/24/19 11:55 ABG O2 Sat (Measured) 94.8 mmHg (95-98) L 12/24/19 11:55 ABG O2 Content No Result Required. 12/24/19 11:55 ABG Base Excess -8.1 mmol/L (-2-2) L 12/24/19 11:55 John Paul Test Positive 12/24/19 11:55 Patient On Oxygen Yes 12/24/19 11:55 O2 Delivery Device V 12/24/19 11:55 Oxygen Flow Rate 75 12/24/19 11:55 Vent Mode Ac 12/24/19 11:55 Vent Rate 35 12/24/19 11:55 Mechanical Rate No Result Required. 12/24/19 11:55 PEEP 10.0 cmH2O 12/24/19 11:55 Pressure Support Vent 350 12/24/19 11:55 Sodium 131 mmol/L (136-145) L 12/24/19 06:00 Potassium 3.7 mmol/L (3.5-5.1) 12/24/19 06:00 Chloride 94 mmol/L (98-107) L 12/24/19 06:00 Carbon Dioxide 19 mmol/L (21-32) L 12/24/19 06:00 Anion Gap 18 MMOL/L (8-16) H 12/24/19 06:00 BUN 76.3 mg/dL (7-18) H 12/24/19 06:00 Creatinine 2.4 mg/dL (0.55-1.3) H 12/24/19 06:00 Est GFR (CKD-EPI)AfAm 26.77 12/24/19 06:00 Est GFR (CKD-EPI)NonAf 23.10 12/24/19 06:00 POC Glucometer 271 UNITS (80-120) 12/24/19 11:35 Random Glucose 145 mg/dL (74-106) H 12/24/19 06:00 Hemoglobin A1c % < 3.5 % (4.2-6.3) L 12/05/19 12:01 Lactic Acid 0.9 mmol/L (0.4-2.0) 12/05/19 15:14 Calcium 7.4 mg/dL (8.5-10.1) L 12/24/19 06:00 Phosphorus 6.1 mg/dL (2.5-4.9) H 12/24/19 06:00 Magnesium 2.3 mg/dL (1.8-2.4) 12/24/19 06:00 Ferritin 249.3 ng/ml (8-388) 12/18/19 05:30 Total Bilirubin 0.3 mg/dL (0.2-1) 12/24/19 06:00 Direct Bilirubin 0.1 mg/dL (0.0-0.2) 12/16/19 05:30 AST 22 U/L (15-37) 12/24/19 06:00 ALT 20 U/L (13-61) 12/24/19 06:00 Alkaline Phosphatase 209 U/L (45-117) H 12/24/19 06:00 LD Total 569 U/L (84-246) H 12/24/19 06:00 Troponin I < 0.02 ng/ml (0.00-0.05) 12/05/19 06:15 C-Reactive Protein 10.1 MG/DL (0.00-0.3) H 12/24/19 06:00 B-Natriuretic Peptide 624.4 pg/ml (5-125) H 12/15/19 11:18 Total Protein 5.7 g/dl (6.4-8.2) L 12/24/19 06:00 Albumin 1.2 g/dl (3.4-5.0) L 12/24/19 06:00 Triglycerides 541 mg/dL (0-150) H 12/22/19 17:00 Cholesterol 252 mg/dL (50-200) H 12/22/19 17:00 Total LDL Cholesterol 160 mg/dL (5-100) H 12/22/19 17:00 HDL Cholesterol 22 mg/dL (40-60) L 12/22/19 17:00 Beta-Hydroxybutyrate 29.7 mg/dL (0.2-2.8) H 12/05/19 12:01 Beta HCG, Quant Cancelled 12/05/19 06:15 Serum , Qual Negative 12/05/19 08:00 Urine Color Yellow 12/20/19 06:00 Urine Appearance Cloudy 12/20/19 06:00 Urine pH 5.0 (5.0-8.0) 12/20/19 06:00 Ur Specific Pisek 1.014 (1.010-1.035) 12/20/19 06:00 Urine Protein 1+ (NEGATIVE) H 12/20/19 06:00 Urine Glucose (UA) Negative (NEGATIVE) 12/20/19 06:00 Urine Ketones Negative (NEGATIVE) 12/20/19 06:00 Urine Blood Negative (NEGATIVE) 12/20/19 06:00 Urine Nitrite Negative (NEGATIVE) 12/20/19 06:00 Urine Bilirubin Negative (NEGATIVE) 12/20/19 06:00 Urine Urobilinogen 0.2 mg/dL (0.2-1.0) 12/20/19 06:00 Ur Leukocyte Esterase Negative (NEGATIVE) 12/20/19 06:00 Urine WBC (Auto) 598 /uL (0-25.8) 12/05/19 05:49 Urine RBC (Auto) 13 /uL (0-23.9) 12/05/19 05:49 Urine Casts (Auto) 1 /uL (0-3.1) 12/20/19 06:00 U Epithel Cells (Auto) 14 /uL (0-25.1) 12/20/19 06:00 Urine Bacteria (Auto) 5 /uL (0-1359) 12/20/19 06:00 Ur Random Creatinine 26.0 mg/dL (30-150) L 12/20/19 06:00 Ur Random Sodium 53 MMOL/L (40-220) 12/20/19 06:00 Ur Random Potassium 11.0 MMOL/L (25-125) L 12/20/19 06:00 Ur Random Chloride 44 MMOL/L (110-250) L 12/20/19 06:00 Random Vancomycin 22.6 ug/ml (5-26) 12/23/19 06:00 Vancomycin Pre-Dose 37.3 ug/ml (5-10) H* 12/19/19 12:00 COVID-19 (BULMARO) Detected (Not Detected) H 12/05/19 06:15 Hep A IgM Ab Confirm Negative (Negative) 12/05/19 19:15 Hep Bs Antigen Negative (Negative) 12/05/19 19:15 Hep B Core IgM Ab Negative (Negative) 12/05/19 19:15 Hepatitis C Ab (EIA) <0.1 s/co ratio (0.0-0.9) 12/05/19 19:15 SARS-CoV-2 Ab Interp Non-reactive (NONREACTIVE) 12/05/19 11:05 Blood Type O POSITIVE 12/14/19 18:35 Antibody Screen Negative 12/14/19 18:35 Active Medications Generic Name Dose Route Start Last Admin Trade Name Freq PRN Reason Stop Dose Admin Albuterol Sulfate 2 puff 12/15/19 04:44 Ventolin Hfa Inhaler - IH Q4H PRN SHORT OF BREATH/WHEEZING Amino Acids 30 ml 12/18/19 17:30 12/24/19 11:04 Prosource No Carb Liquid Pkt PO 30 ml BID@0800,1730 ROCÍO Administration Artificial Tears 1 drop 12/15/19 09:04 12/24/19 11:46 Artificial Tears OU 1 drop TID PRN Administration Dry eyes Ascorbic Acid 250 mg 12/15/19 22:00 12/24/19 11:06 Vitamin C Oral Solution - NGT 250 mg BID ROCÍO Administration Chlorhexidine Gluconate 1 applic 12/15/19 22:00 12/23/19 22:56 Hibiclens For Decolonization - TP 1 applic HS ROCÍO Administration Cholecalciferol 1,000 unit 12/16/19 10:00 12/23/19 10:29 Vitamin D3 Oral Solution - GT 1,000 units DAILY ROCÍO Administration Enoxaparin Sodium 80 mg 12/15/19 10:00 12/24/19 11:06 Lovenox - SQ 80 mg BID ROCÍO Administration Propofol 1,000,000 mcg in 100 mls @ 2.395 mls/hr 12/15/19 03:45 12/24/19 09:33 Diprivan - IVPB 50 mcg/kg/min TITR ROCÍO 23.95 mls/hr Administration Protocol 5 MCG/KG/MIN Midazolam HCl 100 mg/ Sodium 100 mls @ 1 mls/hr 12/15/19 04:00 12/23/19 19:00 Chloride IVPB 10 mg/hr TITR ROCÍO 10 mls/hr Titration Protocol 1 MG/HR Vecuronium Jermyn 100 mg in 100 mls @ 4.79 mls/hr 12/15/19 04:15 12/23/19 19:00 Vecuronium Jermyn IVPB 1.3 mcg/kg/min TITR ROCÍO 6.227 mls/hr Titration 1 MCG/KG/MIN Fentanyl 500 mcg in 100 mls @ 15.966 mls/hr 12/17/19 11:30 12/24/19 09:35 Sublimaze Ivpb IVPB 0.94 mcg/kg/hr TITR ROCÍO 15.008 mls/hr Administration Protocol 1 MCG/KG/HR Cefepime HCl 1 gm/ Dextrose 100 mls @ 200 mls/hr 12/22/19 22:00 12/24/19 11:07 IVPB 200 mls/hr BID ROCÍO Administration Protocol Norepinephrine Bitartrate 8,000 mcg in 500 mls @ 18.75 mls/hr 12/22/19 19:45 12/24/19 04:00 Levophed Bag IVPB 7 mcg/min TITR ROCÍO 26.25 mls/hr Titration Protocol 5 MCG/MIN Amino Acids 1,000 mls @ 50 mls/hr 12/23/19 08:51 12/24/19 09:33 Clinimix - IV 50 mls/hr Q20H [facility] Administration Insulin Aspart 1 vial 12/24/19 09:30 12/24/19 11:38 Novolog Vial Sliding Scale - SQ 6 units Q4HPO [facility] Administration Protocol Insulin Detemir 15 units 12/22/19 21:27 12/24/19 03:49 Levemir Vial SQ Not Given HS [facility] Methylprednisolone Sodium Succinate 40 mg 12/15/19 10:00 12/24/19 11:02 Solu-Medrol - IVPUSH 40 mg BID ROCÍO Administration Nystatin 1 applic 12/18/19 12:00 12/24/19 11:45 Mycostatin Cream - TP 1 applic BID ROCÍO Administration Pantoprazole Sodium 40 mg 12/16/19 10:00 12/24/19 11:03 Protonix Iv IVPUSH 40 mg DAILY ROCÍO Administration Sodium Zirconium Cyclosilicate 10 gm 12/23/19 09:15 12/24/19 11:04 Lokelma PO 10 gm DAILY ROCÍO Administration Zinc Sulfate 220 mg 12/15/19 22:00 12/24/19 11:06 Orazinc - NGT 220 mg BID ROCÍO Administration ASSESSMENT/PLAN: 49 y.o. F PMH DM, HTN, gastroparesis presented 12/04 with shortness of breath, s/p intubation. Found to have COVID-19 pneumonitis. S/p remdesevir, convalescent plasma, rocephin/azithromycin abx/ now on Cefepime. #Neuro -Sedated on propofol 25, versed 10, fentanyl 15 -c/w vecuronium for paralysis #Cardio -Continue pressor support, maintain MAP >65 -h/o HTN, no home meds -not ECMO candidate d/t intubated >7days and now on HD #Pulmonary -Intubated, vent settings: AC mode, 350/35/75%/10. PPlat goal<30. -COVID-19 pneumonitis: s/p remdesevir, convalescent plasma -proned yesterday, unproned today @12PM. Will hold off further proning today as FiO2 requirements decreased while maintaining SaO2 >90% -continue abx, s/p rocephin/azithromycin abx/ now on Cefepime (day #7) -c/w albuterol, ipratropium bromide, methylprednisolone 40 BID, inhaled budesonide BID -therapeutic AC Lovenox 80 BID -CXR no change, bilateral infiltrates- no need for daily CXR -ABG today: hypercarbia improved slightly. pH 7.219 #GI -h/o gastroparesis -continue Reglan -PPI #Endo -h/o DM -ISS + BGMs q4h -insulin gtt dc'd -Levemir 10 qHS #Renal -s/p hemodialysis 12/22 tolerated well -monitor renal labs, improved today -Monitor I/O's, urine output, 300cc overnight -Renal Dr. Lino following #ID -c/w Vitamin C, D, Zinc -s/p 10 days cef/azithro -Now on cefepime, day #8 -ID following. Pt completed 5 days Remdesevir. Received c-plasma. Completed rocephin/azithromycin. Recommended c/w cefepime (day #8). -trend inflammatory markers -Blood & urine cx's 12/14 NGTD -Sputum cx 12/14: + Enterococcus faecalis and yeast-like organism. -cont isolation precautions, airborne+ droplet + contact #PPX -DVT: Lovenox 80 BID -GI: PPI 40 IV qD #FENLTD -no standing fluids -Monitor and replete electrolytes as needed -continue clinimix -ALYSE 12/20 day #4 -ETT 12/14 -[place] -R HILDA nielson 12/22 day #2 Dispo: Continue to monitor in the ICU. Visit type - Emergency Visit Emergency Visit: No - New Patient This patient is new to me today: Yes Date on this admission: 12/24/19 - Critical Care Critical Care patient: Yes Total Critical Care Time (in minutes): 45 Critical Care Statement: The care of this patient involved high complexity decision making to prevent further life threatening deterioration of the patient's condition and/or to evaluate & treat vital organ system(s) failure or risk of failure. ATTENDING PHYSICIAN STATEMENT I saw and evaluated the patient. I reviewed the resident's note and discussed the case with the resident. I agree with the resident's findings and plan as documented. SUBJECTIVE: OBJECTIVE: ASSESSMENT AND PLAN:
[2019-12-24 12:23] LABS: ARTERIAL BLD GAS O2 SATURATION 94.8 mmHg (95-98); ARTERIAL BLOOD GAS BASE EXCESS -8.1 mmol/L (-2-2); ARTERIAL BLOOD GAS PO2 87.7 mmHg (80-100); ARTERIAL BLOOD GAS pH 7.219 (7.350-7.450)
--- NOTE | 2019-12-24 12:24 | PN ---
Teaching Attending Note Name of Resident: Amanda Farias ATTENDING PHYSICIAN STATEMENT I saw and evaluated the patient. I reviewed the resident's note and discussed the case with the resident. I agree with the resident's findings and plan as documented. SUBJECTIVE: Patient seen and examined in the ICU. Remains intubated and sedated in prone position. AC mode of vent, 100% FiO2. Saturation 99%. 5 mcq NE for hemodynamic support. Intake & Output 12/21/19 12/22/19 12/23/19 12/24/19 23:59 23:59 23:59 23:59 Intake Total 4596 3132 1568.4 1767.4 Output Total 2550 1400 8878 50 Balance 2046 1732 -7309.6 1717.4 Last Vital Signs Temp Pulse Resp BP Pulse Ox 97.5 F L 105 H 35 H 122/66 97 12/24/19 06:00 12/24/19 10:00 12/24/19 10:00 12/24/19 10:00 12/24/19 10:00 Active Medications Albuterol Sulfate (Ventolin Hfa Inhaler -) 2 puff IH Q4H PRN PRN Reason: SHORT OF BREATH/WHEEZING Amino Acids (Prosource No Carb Liquid Pkt) 30 ml PO BID@0800,1730 [facility] Last Admin: 12/24/19 11:04 Dose: 30 ml Documented by: Artificial Tears (Artificial Tears) 1 drop OU TID PRN PRN Reason: Dry eyes Last Admin: 12/24/19 11:46 Dose: 1 drop Documented by: Ascorbic Acid (Vitamin C Oral Solution -) 250 mg NGT BID [facility] Last Admin: 12/24/19 11:06 Dose: 250 mg Documented by: Chlorhexidine Gluconate (Hibiclens For Decolonization -) 1 applic TP HS [facility] Last Admin: 12/23/19 22:56 Dose: 1 applic Documented by: Cholecalciferol (Vitamin D3 Oral Solution -) 1,000 unit GT DAILY [facility] Last Admin: 12/23/19 10:29 Dose: 1,000 units Documented by: Enoxaparin Sodium (Lovenox -) 80 mg SQ BID [facility] Last Admin: 12/24/19 11:06 Dose: 80 mg Documented by: Propofol (Diprivan -) 1,000,000 mcg in 100 mls @ 2.395 mls/hr IVPB TITR [facility]; Protocol Last Admin: 12/24/19 09:33 Dose: 50 mcg/kg/min, 23.95 mls/hr Documented by: Midazolam HCl 100 mg/ Sodium (Chloride) 100 mls @ 1 mls/hr IVPB TITR [facility]; Protocol Last Titration: 12/23/19 19:00 Dose: 10 mg/hr, 10 mls/hr Documented by: Vecuronium [place] (Vecuronium [place]) 100 mg in 100 mls @ 4.79 mls/hr IVPB TITR [facility] Last Titration: 12/23/19 19:00 Dose: 1.3 mcg/kg/min, 6.227 mls/hr Documented by: Fentanyl (Sublimaze Ivpb) 500 mcg in 100 mls @ 15.966 mls/hr IVPB TITR [facility]; Protocol Last Admin: 12/24/19 09:35 Dose: 0.94 mcg/kg/hr, 15.008 mls/hr Documented by: Cefepime HCl 1 gm/ Dextrose 100 mls @ 200 mls/hr IVPB BID [facility]; Protocol Last Admin: 12/24/19 11:07 Dose: 200 mls/hr Documented by: Norepinephrine Bitartrate (Levophed Bag) 8,000 mcg in 500 mls @ 18.75 mls/hr IVPB TITR [facility]; Protocol Last Titration: 12/24/19 04:00 Dose: 7 mcg/min, 26.25 mls/hr Documented by: Amino Acids (Clinimix -) 1,000 mls @ 50 mls/hr IV Q20H [facility] Last Admin: 12/24/19 09:33 Dose: 50 mls/hr Documented by: Insulin Aspart (Novolog Vial Sliding Scale -) 1 vial SQ Q4HPO [facility]; Protocol Last Admin: 12/24/19 11:38 Dose: 6 units Documented by: Insulin Detemir (Levemir Vial) 15 units SQ HS [facility] Last Admin: 12/24/19 03:49 Dose: Not Given Documented by: Methylprednisolone Sodium Succinate (Solu-Medrol -) 40 mg IVPUSH BID [facility] Last Admin: 12/24/19 11:02 Dose: 40 mg Documented by: Nystatin (Mycostatin Cream -) 1 applic TP BID [facility] Last Admin: 12/24/19 11:45 Dose: 1 applic Documented by: Pantoprazole Sodium (Protonix Iv) 40 mg IVPUSH DAILY [facility] Last Admin: 12/24/19 11:03 Dose: 40 mg Documented by: Sodium Zirconium Cyclosilicate (Lokelma) 10 gm PO DAILY [facility] Last Admin: 12/24/19 11:04 Dose: 10 gm Documented by: Zinc Sulfate (Orazinc -) 220 mg NGT BID [facility] Last Admin: 12/24/19 11:06 Dose: 220 mg Documented by: GEN: intubated, sedated, Prone position ENT: Sclera clear LUNGS: Vented, bilateral coarse rhonchi CV: S1S2, tachy RRR ABD: Soft, ND, NT+ bowel sounds, no guarding, no rebound EXT: WWP; no edema NEURO: Sedated Laboratory Results - last 24 hr 12/23/19 12/23/19 12/23/19 13:06 14:01 15:48 WBC RBC Hgb Hct MCV MCH MCHC RDW Plt Count MPV Absolute Neuts (auto) Neutrophils % Neutrophils % (Manual) Band Neutrophils % Lymphocytes % Lymphocytes % (Manual) Monocytes % Monocytes % (Manual) Eosinophils % Eosinophils % (Manual) Basophils % Basophils % (Manual) Myelocytes % (Man) Promyelocytes % (Man) Blast Cells % (Manual) Nucleated RBC % Metamyelocytes Hypochromia Platelet Estimate Polychromasia Poikilocytosis Anisocytosis Microcytosis Macrocytosis ESR Anticoagulation Therapy Puncture Site Patient Temperature ABG pH ABG pCO2 ABG pO2 ABG HCO3 ABG O2 Sat (Measured) ABG O2 Content ABG Base Excess [place] Test Patient On Oxygen O2 Delivery Device Oxygen Flow Rate Vent Mode Vent Rate Mechanical Rate PEEP Pressure Support Vent Sodium Potassium Chloride Carbon Dioxide Anion Gap BUN Creatinine Est GFR (CKD-EPI)AfAm Est GFR (CKD-EPI)NonAf POC Glucometer [phone] Random Glucose Calcium Phosphorus Magnesium Total Bilirubin AST ALT Alkaline Phosphatase LD Total C-Reactive Protein Total Protein Albumin 12/23/19 12/23/19 12/23/19 17:15 18:00 18:08 WBC RBC Hgb Hct MCV MCH MCHC RDW Plt Count MPV Absolute Neuts (auto) Neutrophils % Neutrophils % (Manual) Band Neutrophils % Lymphocytes % Lymphocytes % (Manual) Monocytes % Monocytes % (Manual) Eosinophils % Eosinophils % (Manual) Basophils % Basophils % (Manual) Myelocytes % (Man) Promyelocytes % (Man) Blast Cells % (Manual) Nucleated RBC % Metamyelocytes Hypochromia Platelet Estimate Polychromasia Poikilocytosis Anisocytosis Microcytosis Macrocytosis ESR Anticoagulation Therapy No Result Required. Puncture Site Left radial Patient Temperature No Result Required. ABG pH 7.220 L ABG pCO2 60.10 H ABG pO2 140.7 H ABG HCO3 24.0 ABG O2 Sat (Measured) 98.3 H ABG O2 Content No Result Required. ABG Base Excess -4.0 L [place] Test Positive Patient On Oxygen Yes O2 Delivery Device Mec/vent Oxygen Flow Rate 100 Vent Mode A/c Vent Rate 35 Mechanical Rate Mec/vent PEEP 10.0 Pressure Support Vent 350 Sodium Potassium Chloride Carbon Dioxide Anion Gap BUN Creatinine Est GFR (CKD-EPI)AfAm Est GFR (CKD-EPI)NonAf POC Glucometer 261 257 Random Glucose Calcium Phosphorus Magnesium Total Bilirubin AST ALT Alkaline Phosphatase LD Total C-Reactive Protein Total Protein Albumin 12/23/19 12/23/19 12/23/19 19:04 20:30 21:59 WBC RBC Hgb Hct MCV MCH MCHC RDW Plt Count MPV Absolute Neuts (auto) Neutrophils % Neutrophils % (Manual) Band Neutrophils % Lymphocytes % Lymphocytes % (Manual) Monocytes % Monocytes % (Manual) Eosinophils % Eosinophils % (Manual) Basophils % Basophils % (Manual) Myelocytes % (Man) Promyelocytes % (Man) Blast Cells % (Manual) Nucleated RBC % Metamyelocytes Hypochromia Platelet Estimate Polychromasia Poikilocytosis Anisocytosis Microcytosis Macrocytosis ESR Anticoagulation Therapy Puncture Site Patient Temperature ABG pH ABG pCO2 ABG pO2 ABG HCO3 ABG O2 Sat (Measured) ABG O2 Content ABG Base Excess [place] Test Patient On Oxygen O2 Delivery Device Oxygen Flow Rate Vent Mode Vent Rate Mechanical Rate PEEP Pressure Support Vent Sodium Potassium Chloride Carbon Dioxide Anion Gap BUN Creatinine Est GFR (CKD-EPI)AfAm Est GFR (CKD-EPI)NonAf POC Glucometer 268 262 221 Random Glucose Calcium Phosphorus Magnesium Total Bilirubin AST ALT Alkaline Phosphatase LD Total C-Reactive Protein Total Protein Albumin 12/23/19 12/24/19 12/24/19 23:19 00:44 01:56 WBC RBC Hgb Hct MCV MCH MCHC RDW Plt Count MPV Absolute Neuts (auto) Neutrophils % Neutrophils % (Manual) Band Neutrophils % Lymphocytes % Lymphocytes % (Manual) Monocytes % Monocytes % (Manual) Eosinophils % Eosinophils % (Manual) Basophils % Basophils % (Manual) Myelocytes % (Man) Promyelocytes % (Man) Blast Cells % (Manual) Nucleated RBC % Metamyelocytes Hypochromia Platelet Estimate Polychromasia Poikilocytosis Anisocytosis Microcytosis Macrocytosis ESR Anticoagulation Therapy Puncture Site Patient Temperature ABG pH ABG pCO2 ABG pO2 ABG HCO3 ABG O2 Sat (Measured) ABG O2 Content ABG Base Excess [place] Test Patient On Oxygen O2 Delivery Device Oxygen Flow Rate Vent Mode Vent Rate Mechanical Rate PEEP Pressure Support Vent Sodium Potassium Chloride Carbon Dioxide Anion Gap BUN Creatinine Est GFR (CKD-EPI)AfAm Est GFR (CKD-EPI)NonAf POC Glucometer [phone] Random Glucose Calcium Phosphorus Magnesium Total Bilirubin AST ALT Alkaline Phosphatase LD Total C-Reactive Protein Total Protein Albumin 12/24/19 12/24/19 12/24/19 03:12 04:45 06:00 WBC RBC Hgb Hct MCV MCH MCHC RDW Plt Count MPV Absolute Neuts (auto) Neutrophils % Neutrophils % (Manual) Band Neutrophils % Lymphocytes % Lymphocytes % (Manual) Monocytes % Monocytes % (Manual) Eosinophils % Eosinophils % (Manual) Basophils % Basophils % (Manual) Myelocytes % (Man) Promyelocytes % (Man) Blast Cells % (Manual) Nucleated RBC % Metamyelocytes Hypochromia Platelet Estimate Polychromasia Poikilocytosis Anisocytosis Microcytosis Macrocytosis ESR Anticoagulation Therapy Puncture Site Patient Temperature ABG pH ABG pCO2 ABG pO2 ABG HCO3 ABG O2 Sat (Measured) ABG O2 Content ABG Base Excess [place] Test Patient On Oxygen O2 Delivery Device Oxygen Flow Rate Vent Mode Vent Rate Mechanical Rate PEEP Pressure Support Vent Sodium 131 L Potassium 3.7 Chloride 94 L Carbon Dioxide 19 L Anion Gap 18 H BUN 76.3 H Creatinine 2.4 H Est GFR (CKD-EPI)AfAm 26.77 Est GFR (CKD-EPI)NonAf 23.10 POC Glucometer 176 163 Random Glucose 145 H Calcium 7.4 L Phosphorus 6.1 H Magnesium 2.3 Total Bilirubin 0.3 AST 22 ALT 20 Alkaline Phosphatase 209 H LD Total 569 H C-Reactive Protein 10.1 H Total Protein 5.7 L Albumin 1.2 L 12/24/19 12/24/19 12/24/19 06:00 06:09 09:07 WBC 27.6 H RBC 3.13 L Hgb 8.1 L Hct 25.1 L MCV 80.1 MCH 26.0 MCHC 32.4 RDW 15.0 Plt Count 215 MPV 9.0 Absolute Neuts (auto) 25.3 H Neutrophils % 91.6 H Neutrophils % (Manual) 92.6 H Band Neutrophils % 0.0 Lymphocytes % 3.7 L Lymphocytes % (Manual) 3.2 L D Monocytes % 4.5 Monocytes % (Manual) 3 L D Eosinophils % 0.1 Eosinophils % (Manual) 0.0 Basophils % 0.1 Basophils % (Manual) 0.0 Myelocytes % (Man) 1 D Promyelocytes % (Man) 0 Blast Cells % (Manual) 0 Nucleated RBC % 0 Metamyelocytes 0 Hypochromia 0 Platelet Estimate Normal Polychromasia 0 Poikilocytosis 0 Anisocytosis 1+ Microcytosis 1+ Macrocytosis 0 ESR > 140 H Anticoagulation Therapy Puncture Site Patient Temperature ABG pH ABG pCO2 ABG pO2 ABG HCO3 ABG O2 Sat (Measured) ABG O2 Content ABG Base Excess [place] Test Patient On Oxygen O2 Delivery Device Oxygen Flow Rate Vent Mode Vent Rate Mechanical Rate PEEP Pressure Support Vent Sodium Potassium Chloride Carbon Dioxide Anion Gap BUN Creatinine Est GFR (CKD-EPI)AfAm Est GFR (CKD-EPI)NonAf POC Glucometer 125 246 Random Glucose Calcium Phosphorus Magnesium Total Bilirubin AST ALT Alkaline Phosphatase LD Total C-Reactive Protein Total Protein Albumin 12/24/19 11:35 WBC RBC Hgb Hct MCV MCH MCHC RDW Plt Count MPV Absolute Neuts (auto) Neutrophils % Neutrophils % (Manual) Band Neutrophils % Lymphocytes % Lymphocytes % (Manual) Monocytes % Monocytes % (Manual) Eosinophils % Eosinophils % (Manual) Basophils % Basophils % (Manual) Myelocytes % (Man) Promyelocytes % (Man) Blast Cells % (Manual) Nucleated RBC % Metamyelocytes Hypochromia Platelet Estimate Polychromasia Poikilocytosis Anisocytosis Microcytosis Macrocytosis ESR Anticoagulation Therapy Puncture Site Patient Temperature ABG pH ABG pCO2 ABG pO2 ABG HCO3 ABG O2 Sat (Measured) ABG O2 Content ABG Base Excess [place] Test Patient On Oxygen O2 Delivery Device Oxygen Flow Rate Vent Mode Vent Rate Mechanical Rate PEEP Pressure Support Vent Sodium Potassium Chloride Carbon Dioxide Anion Gap BUN Creatinine Est GFR (CKD-EPI)AfAm Est GFR (CKD-EPI)NonAf POC Glucometer 271 Random Glucose Calcium Phosphorus Magnesium Total Bilirubin AST ALT Alkaline Phosphatase LD Total C-Reactive Protein Total Protein Albumin ASSESSMENT/PLAN: Acute Respiratory Failure due to ARDS due to COVID19 Pneumonitis Capillary Leak Syndrome DM Hyperglycemia HTN Gastroparesis Sepsis PE ruled out NELLIE Supine position : FiO2 was decreased to 75% with saturation 94% : Will hold on prone position today [facility] was contacted yesterday. The patient is not a candidate for ECMO therapy due to Renal Failure/HD and being intubated greater than 7 days Conservative IVF LTVV; PPlat goal<30 Continue Steroids Sedation/Paralyze for vent synchrony Full AC Strict Isolation and usage of Full PPE S/P Remdesivir x 5 days S/P Convalescent Plasma treatment Will not give Actemra due to active infectious process Vit C; Vitamin D; Zinc Strict I & O Dr Rivas Critical care time spent in reviewing chart, evaluating patient and formulating plan - 36 minutes.
[2019-12-24 12:25] LABS: ALLENS TEST POSITIVE
[2019-12-24 12:26] LABS: VENT MODE AC; VENT RATE 35
--- NOTE | 2019-12-24 12:51 | PN ---
Progress Note, Physician History of Present Illness: Pt seen and examined at bedside. She remains in the ICU. She tolerated HD yesterday. - Current Medication List Current Medications: Active Medications Albuterol Sulfate (Ventolin Hfa Inhaler -) 2 puff IH Q4H PRN PRN Reason: SHORT OF BREATH/WHEEZING Amino Acids (Prosource No Carb Liquid Pkt) 30 ml PO BID@0800,1730 [facility] Last Admin: 12/24/19 11:04 Dose: 30 ml Documented by: Artificial Tears (Artificial Tears) 1 drop OU TID PRN PRN Reason: Dry eyes Last Admin: 12/24/19 11:46 Dose: 1 drop Documented by: Ascorbic Acid (Vitamin C Oral Solution -) 250 mg NGT BID [facility] Last Admin: 12/24/19 11:06 Dose: 250 mg Documented by: Chlorhexidine Gluconate (Hibiclens For Decolonization -) 1 applic TP HS [facility] Last Admin: 12/23/19 22:56 Dose: 1 applic Documented by: Cholecalciferol (Vitamin D3 Oral Solution -) 1,000 unit GT DAILY [facility] Last Admin: 12/23/19 10:29 Dose: 1,000 units Documented by: Enoxaparin Sodium (Lovenox -) 80 mg SQ BID [facility] Last Admin: 12/24/19 11:06 Dose: 80 mg Documented by: Propofol (Diprivan -) 1,000,000 mcg in 100 mls @ 2.395 mls/hr IVPB TITR [facility]; Protocol Last Admin: 12/24/19 09:33 Dose: 50 mcg/kg/min, 23.95 mls/hr Documented by: Midazolam HCl 100 mg/ Sodium (Chloride) 100 mls @ 1 mls/hr IVPB TITR [facility]; Protocol Last Titration: 12/23/19 19:00 Dose: 10 mg/hr, 10 mls/hr Documented by: Vecuronium [place]comb (Vecuronium [place]) 100 mg in 100 mls @ 4.79 mls/hr IVPB TITR [facility] Last Titration: 12/23/19 19:00 Dose: 1.3 mcg/kg/min, 6.227 mls/hr Documented by: Fentanyl (Sublimaze Ivpb) 500 mcg in 100 mls @ 15.966 mls/hr IVPB TITR [facility]; Protocol Last Admin: 12/24/19 09:35 Dose: 0.94 mcg/kg/hr, 15.008 mls/hr Documented by: Cefepime HCl 1 gm/ Dextrose 100 mls @ 200 mls/hr IVPB BID [facility]; Protocol Last Admin: 12/24/19 11:07 Dose: 200 mls/hr Documented by: Norepinephrine Bitartrate (Levophed Bag) 8,000 mcg in 500 mls @ 18.75 mls/hr IVPB TITR [facility]; Protocol Last Titration: 12/24/19 04:00 Dose: 7 mcg/min, 26.25 mls/hr Documented by: Amino Acids (Clinimix -) 1,000 mls @ 50 mls/hr IV Q20H [facility] Last Admin: 12/24/19 09:33 Dose: 50 mls/hr Documented by: Insulin Aspart (Novolog Vial Sliding Scale -) 1 vial SQ Q4HPO [facility]; Protocol Last Admin: 12/24/19 11:38 Dose: 6 units Documented by: Insulin Detemir (Levemir Vial) 15 units SQ HS [facility] Last Admin: 12/24/19 03:49 Dose: Not Given Documented by: Methylprednisolone Sodium Succinate (Solu-Medrol -) 40 mg IVPUSH BID [facility] Last Admin: 12/24/19 11:02 Dose: 40 mg Documented by: Nystatin (Mycostatin Cream -) 1 applic TP BID [facility] Last Admin: 12/24/19 11:45 Dose: 1 applic Documented by: Pantoprazole Sodium (Protonix Iv) 40 mg IVPUSH DAILY [facility] Last Admin: 12/24/19 11:03 Dose: 40 mg Documented by: Sodium Zirconium Cyclosilicate (Lokelma) 10 gm PO DAILY [facility] Last Admin: 12/24/19 11:04 Dose: 10 gm Documented by: Zinc Sulfate (Orazinc -) 220 mg NGT BID [facility] Last Admin: 12/24/19 11:06 Dose: 220 mg Documented by: - Objective Vital Signs: Vital Signs Temperature 97.5 F L 12/24/19 06:00 Pulse Rate 105 H 12/24/19 10:00 Respiratory Rate 35 H 12/24/19 12:38 Blood Pressure 122/66 12/24/19 10:00 O2 Sat by Pulse Oximetry (%) 100 12/24/19 12:38 Constitutional: Yes: Calm Eyes: Yes: Conjunctiva Clear HENT: Yes: Atraumatic Neck: Yes: Supple Cardiovascular: Yes: S1, S2 Respiratory: Yes: Mechanically Ventilated Gastrointestinal: Yes: Soft Genitourinary: Yes: [place] Present Musculoskeletal: Yes: Muscle Weakness Edema: Yes Edema: LLE: Trace, RLE: Trace Integumentary: Yes: WNL Neurological: Yes: Lethargy Labs: CBC, BMP 12/24/19 06:00 12/24/19 06:00 INR, PTT INR 0.92 (0.83-1.09) 12/05/19 06:15 - ....Imaging Chest X-ray: Report Reviewed Problem List - Problems (1) NELLIE (acute kidney injury) Code(s): N17.9 - ACUTE KIDNEY FAILURE, UNSPECIFIED (2) Acute respiratory failure Code(s): J96.00 - ACUTE RESPIRATORY FAILURE, UNSP W HYPOXIA OR HYPERCAPNIA Qualifiers: Respiratory failure complication: hypoxia Qualified Code(s): J96.01 - Acute respiratory failure with hypoxia (3) COVID-19 Code(s): U07.1 - COVID POSITIVE Assessment/Plan Current Medications Generic Name Dose Route Start Last Admin Trade Name Freq PRN Reason Stop Dose Admin Albuterol Sulfate 2 puff 12/15/19 04:44 Ventolin Hfa Inhaler - IH Q4H PRN SHORT OF BREATH/WHEEZING Amino Acids 30 ml 12/18/19 17:30 12/24/19 11:04 Prosource No Carb Liquid Pkt PO 30 ml BID@0800,1730 [facility] Administration Artificial Tears 1 drop 12/15/19 09:04 12/24/19 11:46 Artificial Tears OU 1 drop TID PRN Administration Dry eyes Ascorbic Acid 250 mg 12/15/19 22:00 12/24/19 11:06 Vitamin C Oral Solution - NGT 250 mg BID [facility] Administration Chlorhexidine Gluconate 1 applic 12/15/19 22:00 12/23/19 22:56 Hibiclens For Decolonization - TP 1 applic HS [facility] Administration Cholecalciferol 1,000 unit 12/16/19 10:00 12/23/19 10:29 Vitamin D3 Oral Solution - GT 1,000 units DAILY [facility] Administration Enoxaparin Sodium 80 mg 12/15/19 10:00 12/24/19 11:06 Lovenox - SQ 80 mg BID [facility] Administration Propofol 1,000,000 mcg in 100 mls @ 2.395 mls/hr 12/15/19 03:45 12/24/19 09:33 Diprivan - IVPB 50 mcg/kg/min TITR [facility] 23.95 mls/hr Administration Protocol 5 MCG/KG/MIN Midazolam HCl 100 mg/ Sodium 100 mls @ 1 mls/hr 12/15/19 04:00 12/23/19 19:00 Chloride IVPB 10 mg/hr TITR [facility] 10 mls/hr Titration Protocol 1 MG/HR Vecuronium Newcomb 100 mg in 100 mls @ 4.79 mls/hr 12/15/19 04:15 12/23/19 19:00 Vecuronium [place]comb IVPB 1.3 mcg/kg/min TITR [facility] 6.227 mls/hr Titration 1 MCG/KG/MIN Fentanyl 500 mcg in 100 mls @ 15.966 mls/hr 12/17/19 11:30 12/24/19 09:35 Sublimaze Ivpb IVPB 0.94 mcg/kg/hr TITR [facility] 15.008 mls/hr Administration Protocol 1 MCG/KG/HR Cefepime HCl 1 gm/ Dextrose 100 mls @ 200 mls/hr 12/22/19 22:00 12/24/19 11:07 IVPB 200 mls/hr BID [facility] Administration Protocol Norepinephrine Bitartrate 8,000 mcg in 500 mls @ 18.75 mls/hr 12/22/19 19:45 12/24/19 04:00 Levophed Bag IVPB 7 mcg/min TITR [facility] 26.25 mls/hr Titration Protocol 5 MCG/MIN Amino Acids 1,000 mls @ 50 mls/hr 12/23/19 08:51 12/24/19 09:33 Clinimix - IV 50 mls/hr Q20H [facility] Administration Insulin Aspart 1 vial 12/24/19 09:30 12/24/19 11:38 Novolog Vial Sliding Scale - SQ 6 units Q4HPO [facility] Administration Protocol Insulin Detemir 15 units 12/22/19 21:27 12/24/19 03:49 Levemir Vial SQ Not Given HS [facility] Methylprednisolone Sodium Succinate 40 mg 12/15/19 10:00 12/24/19 11:02 Solu-Medrol - IVPUSH 40 mg BID [facility] Administration Nystatin 1 applic 12/18/19 12:00 12/24/19 11:45 Mycostatin Cream - TP 1 applic BID [facility] Administration Pantoprazole Sodium 40 mg 12/16/19 10:00 12/24/19 11:03 Protonix Iv IVPUSH 40 mg DAILY [facility] Administration Sodium Zirconium Cyclosilicate 10 gm 12/23/19 09:15 12/24/19 11:04 Lokelma PO 10 gm DAILY [facility] Administration Zinc Sulfate 220 mg 12/15/19 22:00 12/24/19 11:06 Orazinc - NGT 220 mg BID [facility] Administration Impression 1. NELLIE 2. covid 3. resp failure requiring intubation 4. dm 5. htn 6. gastroparesis 7. sepsis 8. elevated vanco level 9. hyperkalemia Plan - cont vent support - can d/c lokelma - repeat labs in am - will evaluate for HD again tomorrow - discussed with ICU team - potassium improved - maintain map 65 - s/p Remdesivir x 5 days - s/p Convalescent Plasma treatment - cont to monitor lytes - monitor urine output - cont ICU care
[2019-12-24] MEDS: MIDAZOLAM IN 0.9 % SOD.CHLORID 100 MG/100 ML PLAST..BAG IVPB SCH (13:05)
[2019-12-24] MEDS: NOREPINEPHRINE BITARTRATE 8,000 MCG/500 ML BAG IVPB SCH (16:35)
[2019-12-24] MEDS: VECURONIUM BROMIDE 100 MG/100 ML BAG IVPB SCH (18:19)
[2019-12-24] MEDS: MIDAZOLAM 100 MG in SODIUM CHLORIDE 100 ML IVPB SCH (19:19)
[2019-12-24] MEDS: INSULIN REGULAR 100 UNITS in SODIUM CHLORIDE 99 ML IVPB SCH (23:00)
[2019-12-24] MEDS: CHLORHEXIDINE GLUCONATE 4% CLEANSER FOR DECOLONIZATION TP SCH (23:15)
[2019-12-24] MEDS ORDERED: INSULIN REGULAR HUMAN 100 UNITS/ML *VIAL* (FOR IVP) IVPUSH ONE (23:22)
[2019-12-25] MEDS: AMINO ACIDS 4.25%/D5W 1,000 ML IV SCH (03:51)
[2019-12-25 07:30] LABS: BASO % 0.2 % (0-2.0); HEMATOCRIT 23.7 % (32.4-45.2); HEMOGLOBIN 7.9 GM/dL (10.7-15.3); LYMPH % 4.6 % (8-40); MCH 26.4 pg (25.7-33.7); MCHC 33.1 g/dl (32.0-36.0); MEAN CELL VOLUME 79.6 fl (80-96); MEAN PLT VOLUME 9.4 fl (7.5-11.1); MONO % 3.3 % (3.8-10.2); NEUT % 91.9 % (42.8-82.8); PLATELET COUNT 195 K/MM3 (134-434); RBC 2.98 M/mm3 (3.60-5.2); WHITE BLOOD COUNT 25.8 K/mm3 (4.0-10.0)
--- NOTE | 2019-12-25 08:13 | PN ---
Physical Exam: SUBJECTIVE: Patient seen and examined, intubated and sedated. Currently difficult to oxygenate. OBJECTIVE: Vital Signs Period Temp Pulse Resp BP Sys/Aguilar Pulse Ox Last 24 Hr 98.0 F 95-105 35-35 102-137/52-77 87-100 GENERAL: Intubated and sedated HEENT: ET tube in place. LUNGS: B/l crackles noted HEART: Regular rate and rhythm, S1, S2 without murmur, rub or gallop. ABDOMEN: Soft, nontender, nondistended, normoactive bowel sounds EXTREMITIES: 2+ pulses, warm, well-perfused. Hands are edematous b/l NEUROLOGICAL: unable to assess SKIN: Dry, normal turgor, no rashes or lesions noted ABG Results ABG pH 7.219 (7.350-7.450) L 12/24/19 11:55 ABG HCO3 19.2 mmol/L (22-27) L 12/24/19 11:55 ABG O2 Sat (Measured) 94.8 mmHg (95-98) L 12/24/19 11:55 ABG O2 Content No Result Required. 12/24/19 11:55 ABG Base Excess -8.1 mmol/L (-2-2) L 12/24/19 11:55 ABG Results ABG pH 6.994 (7.350-7.450) L* 12/25/19 12:25 ABG HCO3 13.6 mmol/L (22-27) L 12/25/19 12:25 ABG O2 Sat (Measured) 83.7 mmHg (95-98) L 12/25/19 12:25 ABG O2 Content No Result Required. 12/25/19 12:25 ABG Base Excess -17.1 mmol/L (-2-2) L 12/25/19 12:25 CBC, BMP 12/25/19 06:00 12/25/19 10:55 Active Medications Albuterol Sulfate (Ventolin Hfa Inhaler -) 2 puff IH Q4H PRN PRN Reason: SHORT OF BREATH/WHEEZING Amino Acids (Prosource No Carb Liquid Pkt) 30 ml PO BID@0800,1730 ROCÍO Last Admin: 12/25/19 08:25 Dose: 30 ml Documented by: Artificial Tears (Artificial Tears) 1 drop OU TID PRN PRN Reason: Dry eyes Last Admin: 12/24/19 11:46 Dose: 1 drop Documented by: Ascorbic Acid (Vitamin C Oral Solution -) 250 mg NGT BID [facility] Last Admin: 12/25/19 10:27 Dose: 250 mg Documented by: Chlorhexidine Gluconate (Hibiclens For Decolonization -) 1 applic TP HS [facility] Last Admin: 12/24/19 23:15 Dose: 1 applic Documented by: Cholecalciferol (Vitamin D3 Oral Solution -) 1,000 unit GT DAILY [facility] Last Admin: 12/25/19 10:28 Dose: 1,000 units Documented by: Enoxaparin Sodium (Lovenox -) 80 mg SQ BID [facility] Last Admin: 12/25/19 10:32 Dose: 80 mg Documented by: Fludrocortisone Acetate (Florinef -) 0.2 mg PO DAILY [facility] Hydrocortisone Sodium Succinate (Solu-Cortef -) 50 mg IVPUSH TID [facility] Last Admin: 12/25/19 14:52 Dose: 50 mg Documented by: Propofol (Diprivan -) 1,000,000 mcg in 100 mls @ 2.395 mls/hr IVPB TITR [facility]; Protocol Last Titration: 12/24/19 19:00 Dose: 50 mcg/kg/min, 23.95 mls/hr Documented by: Vecuronium [place] (Vecuronium [place]) 100 mg in 100 mls @ 4.79 mls/hr IVPB TITR [facility] Last Titration: 12/24/19 19:00 Dose: 1.3 mcg/kg/min, 6.227 mls/hr Documented by: Fentanyl (Sublimaze Ivpb) 500 mcg in 100 mls @ 15.966 mls/hr IVPB TITR [facility]; Protocol Last Titration: 12/24/19 19:00 Dose: 0.94 mcg/kg/hr, 15 mls/hr Documented by: Cefepime HCl 1 gm/ Dextrose 100 mls @ 200 mls/hr IVPB BID [facility]; Protocol Last Admin: 12/25/19 10:33 Dose: 200 mls/hr Documented by: Midazolam HCl (Midazolam 100mg/100ml-0.9%Nacl) 100 mg in 100 mls @ 1 mls/hr IVPB TITR [facility]; Protocol Last Titration: 12/24/19 19:00 Dose: 10 mg/hr, 10 mls/hr Documented by: Insulin Human Regular 100 (units/ Sodium Chloride) 100 mls @ 4 mls/hr IVPB TITR [facility]; Protocol Last Titration: 12/25/19 13:44 Dose: 13.5 units/hr, 13.5 mls/hr Documented by: Sodium Chloride (Normal Saline -) 250 mls @ 3,000 mls/hr IV PRN PRN PRN Reason: Hypotension during Dialysis Stop: 12/26/19 11:35 Vasopressin 40 units/ Sodium (Chloride) 100 mls @ 5 mls/hr IVPB ASDIR [facility]; Protocol Last Titration: 12/25/19 14:10 Dose: 2 units/hr, 5 mls/hr Documented by: Norepinephrine Bitartrate 16, (000 mcg/ Sodium Chloride) 500 mls @ 9.375 mls/hr IV TITR [facility]; Protocol Last Titration: 12/25/19 14:10 Dose: 16 mcg/min, 30 mls/hr Documented by: Nystatin (Mycostatin Cream -) 1 applic TP BID [facility] Last Admin: 12/24/19 23:15 Dose: 1 applic Documented by: Pantoprazole Sodium (Protonix Iv) 40 mg IVPUSH DAILY [facility] Last Admin: 12/25/19 10:35 Dose: 40 mg Documented by: Sodium Zirconium Cyclosilicate (Lokelma) 10 gm PO DAILY [facility] Last Admin: 12/25/19 10:29 Dose: 10 gm Documented by: Zinc Sulfate (Orazinc -) 220 mg NGT BID [facility] Last Admin: 12/25/19 10:29 Dose: 220 mg Documented by: ASSESSMENT/PLAN: 49 y.o. F PMH DM, HTN, gastroparesis presented 12/04 with shortness of breath, s/p intubation. Found to have COVID-19 pneumonitis. S/p remdesevir, convalescent plasma, rocephin/azithromycin abx/ now on Cefepime. NEURO -Sedated & Intubated on propofol 50, versed 10, fentanyl 75 -c/w vecuronium 1.3 for paralysis CARDIO -Continue pressor support, maintain MAP >65 -Levo 16 -Vaso 2 -h/o HTN, no home meds -not ECMO candidate d/t intubated >7days and now on HD PULM -Intubated, vent settings: AC mode, 350/30/85%/10. PPlat goal<30. -COVID-19 pneumonitis: s/p remdesevir, convalescent plasma -Currently unproned. -continue abx, s/p rocephin/azithromycin abx/ now on Cefepime (day #8) -c/w albuterol, ipratropium bromide, methylprednisolone 40 BID, inhaled budesonide BID -therapeutic AC Lovenox 80 BID -CXR no change, bilateral infiltrates- no need for daily CXR -ABG today:. pH 6.994 --> Bicarb given GASTRO -h/o gastroparesis -continue Reglan -PPI -Restart Trickle feeds (12/24) ENDOCRINE -h/o DM -ISS + BGMs q4h -insulin gtt @ 13.5 RENAL -s/p hemodialysis 12/24 -monitor renal labs -Monitor I/O's -Renal Dr. Lino following ID -Afebrile, WBC increasing, continue cefepime -c/w Vitamin C, D, Zinc -s/p 11 days cef/azithro -Now on cefepime, day #8 -ID following. Pt completed 5 days Remdesevir. Received c-plasma. Completed rocephin/azithromycin. Recommended c/w cefepime (day #8). -trend inflammatory markers -Blood & urine cx's 12/14 NGTD -Sputum cx 12/14: + Enterococcus faecalis and yeast-like organism. -cont isolation precautions, airborne+ droplet + contact PPX -DVT: Lovenox 80 BID -GI: PPI 40 IV qD FEN -no standing fluids -Monitor and replete electrolytes as needed -DC clinimix, start trickle feeds as tolerated -ALYSE 12/20 day #5 -ETT 12/14 -Milagros nielson 12/22 day #3 Dispo: Continue to monitor in the ICU. Visit type - Emergency Visit Emergency Visit: No - New Patient This patient is new to me today: No - Critical Care Critical Care patient: Yes Total Critical Care Time (in minutes): 36 Critical Care Statement: The care of this patient involved high complexity decision making to prevent further life threatening deterioration of the patient's condition and/or to evaluate & treat vital organ system(s) failure or risk of failure. - Discharge Referral Referred to [facility] Med [facility] No ATTENDING PHYSICIAN STATEMENT I saw and evaluated the patient. I reviewed the resident's note and discussed the case with the resident. I agree with the resident's findings and plan as documented. SUBJECTIVE: OBJECTIVE: ASSESSMENT AND PLAN:
[2019-12-25] MEDS: AMINO ACIDS/PROTEIN HYDROLYS 30 ML LIQUID.PKT PO SCH ×2 (08:25→17:45)
[2019-12-25 08:38] LABS: ALBUMIN 1.3 g/dl (3.4-5.0); BLOOD UREA NITROGEN 94.9 mg/dL (7-18); CALCIUM 7.3 mg/dL (8.5-10.1); MAGNESIUM 2.2 mg/dL (1.8-2.4); PHOSPHOROUS 7.1 mg/dL (2.5-4.9); POTASSIUM 4.1 mmol/L (3.5-5.1); TOT PROT 5.8 g/dl (6.4-8.2)
[2019-12-25 08:57] LABS: MACROCYTOSIS 0; PLATELET ESTIMATE NORMAL
[2019-12-25] MEDS ORDERED: CEFEPIME HCL 1 GM VIAL (RESTRICTED TO ID) ONE ×2 (10:24→21:03)
[2019-12-25] MEDS ORDERED: DEXTROSE 5%-WATER 100 ML IVPB ONE ×2 (10:24→21:03)
[2019-12-25] MEDS ORDERED: PT OWN MED DRAWER 7, Y5N ONE ×2 (10:25→21:03)
[2019-12-25 10:26] LABS: ROULEAU 1+
[2019-12-25 10:27] LABS: ANISOCYTOSIS 1+; TEAR DROP CELLS 1+
[2019-12-25] MEDS: ASCORBIC ACID 500 MG/5 ML UNIT DOSE CUP NGT SCH ×2 (10:27→21:17)
[2019-12-25] MEDS: CHOLECALCIFEROL (VIT D SOLUTION) 400 UNIT/1 ML DROPS GT SCH (10:28)
[2019-12-25] MEDS: ZINC SULFATE 220 MG CAPSULE (FP) NGT SCH ×2 (10:29→21:15)
[2019-12-25] MEDS: SODIUM ZIRCONIUM CYCLOSILICATE (LOKELMA) 5 GM PACKET PO SCH (10:29)
[2019-12-25] MEDS: ENOXAPARIN NA (PORCINE) 80 MG/0.8 ML DISP.SYRIN SQ SCH ×2 (10:32→21:16)
[2019-12-25] MEDS: CEFEPIME 1 GM in DEXTROSE 5%-WATER 100 ML IVPB SCH ×2 (10:33→21:16)
[2019-12-25] MEDS: PANTOPRAZOLE SODIUM 40 MG VIAL IVPUSH SCH (10:35)
[2019-12-25] MEDS: methylPREDNISolone NA SUCC 40 MG/1 ML VIAL IVPUSH SCH (10:37)
[2019-12-25] MEDS: NYSTATIN 100,000 UNIT/GM TOPICAL CREAM 15 GM TUBE TP SCH ×2 (11:15→21:15)
[2019-12-25] MEDS ORDERED: SODIUM CHLORIDE 250 ML IV PRN (11:35)
--- NOTE | 2019-12-25 11:35 | PN ---
Progress Note, Physician History of Present Illness: Pt seen and examined at bedside. She remain in the ICU intubated. She is difficult to oxygenate. - Current Medication List Current Medications: Active Medications Albuterol Sulfate (Ventolin Hfa Inhaler -) 2 puff IH Q4H PRN PRN Reason: SHORT OF BREATH/WHEEZING Amino Acids (Prosource No Carb Liquid Pkt) 30 ml PO BID@0800,1730 ROCÍO Last Admin: 12/25/19 08:25 Dose: 30 ml Documented by: Artificial Tears (Artificial Tears) 1 drop OU TID PRN PRN Reason: Dry eyes Last Admin: 12/24/19 11:46 Dose: 1 drop Documented by: Ascorbic Acid (Vitamin C Oral Solution -) 250 mg NGT BID [facility]O Last Admin: 12/25/19 10:27 Dose: 250 mg Documented by: Chlorhexidine Gluconate (Hibiclens For Decolonization -) 1 applic TP HS [facility]O Last Admin: 12/24/19 23:15 Dose: 1 applic Documented by: Cholecalciferol (Vitamin D3 Oral Solution -) 1,000 unit GT DAILY [facility] Last Admin: 12/25/19 10:28 Dose: 1,000 units Documented by: Enoxaparin Sodium (Lovenox -) 80 mg SQ BID [facility] Last Admin: 12/25/19 10:32 Dose: 80 mg Documented by: Propofol (Diprivan -) 1,000,000 mcg in 100 mls @ 2.395 mls/hr IVPB TITR [facility]; Protocol Last Titration: 12/24/19 19:00 Dose: 50 mcg/kg/min, 23.95 mls/hr Documented by: Vecuronium [place] (Vecuronium [place]) 100 mg in 100 mls @ 4.79 mls/hr IVPB TITR [facility]O Last Titration: 12/24/19 19:00 Dose: 1.3 mcg/kg/min, 6.227 mls/hr Documented by: Fentanyl (Sublimaze Ivpb) 500 mcg in 100 mls @ 15.966 mls/hr IVPB TITR [facility]; Pro tocol Last Titration: 12/24/19 19:00 Dose: 0.94 mcg/kg/hr, 15 mls/hr Documented by: Cefepime HCl 1 gm/ Dextrose 100 mls @ 200 mls/hr IVPB BID [facility]; Protocol Last Admin: 12/25/19 10:33 Dose: 200 mls/hr Documented by: Norepinephrine Bitartrate (Levophed Bag) 8,000 mcg in 500 mls @ 18.75 mls/hr IVPB TITR [facility]; Protocol Last Titration: 12/25/19 11:15 Dose: 10 mcg/min, 37.5 mls/hr Documented by: Midazolam HCl (Midazolam 100mg/100ml-0.9%Nacl) 100 mg in 100 mls @ 1 mls/hr IVPB TITR [facility]; Protocol Last Titration: 12/24/19 19:00 Dose: 10 mg/hr, 10 mls/hr Documented by: Insulin Human Regular 100 (units/ Sodium Chloride) 100 mls @ 4 mls/hr IVPB TITR [facility]; Protocol Last Titration: 12/25/19 09:59 Dose: 7 units/hr, 7 mls/hr Documented by: Methylprednisolone Sodium Succinate (Solu-Medrol -) 40 mg IVPUSH BID [facility] Last Admin: 12/25/19 10:37 Dose: 40 mg Documented by: Nystatin (Mycostatin Cream -) 1 applic TP BID [facility] Last Admin: 12/24/19 23:15 Dose: 1 applic Documented by: Pantoprazole Sodium (Protonix Iv) 40 mg IVPUSH DAILY [facility] Last Admin: 12/25/19 10:35 Dose: 40 mg Documented by: Sodium Zirconium Cyclosilicate (Lokelma) 10 gm PO DAILY [facility] Last Admin: 12/25/19 10:29 Dose: 10 gm Documented by: Zinc Sulfate (Orazinc -) 220 mg NGT BID [facility] Last Admin: 12/25/19 10:29 Dose: 220 mg Documented by: - Objective Vital Signs: Vital Signs Temperature 98.0 F 12/24/19 22:00 Pulse Rate 96 H 12/25/19 08:11 Respiratory Rate 35 H 12/25/19 08:18 Blood Pressure 108/52 L 12/25/19 08:00 O2 Sat by Pulse Oximetry (%) 93 L 12/25/19 08:18 Constitutional: Yes: Calm Eyes: Yes: Conjunctiva Clear HENT: Yes: Atraumatic Neck: Yes: Supple Cardiovascular: Yes: S1, S2 Respiratory: Yes: Mechanically Ventilated Gastrointestinal: Yes: Soft Genitourinary: Yes: [place] Present Musculoskeletal: Yes: Muscle Weakness Edema: Yes Edema: LUE: Trace, RUE: Trace, LLE: 1+, RLE: 1+ Neurological: Yes: Lethargy Labs: CBC, BMP 12/25/19 06:00 INR, PTT INR 0.92 (0.83-1.09) 12/05/19 06:15 - ....Imaging Chest X-ray: Report Reviewed Problem List - Problems (1) NELLIE (acute kidney injury) Code(s): N17.9 - ACUTE KIDNEY FAILURE, UNSPECIFIED (2) Acute respiratory failure Code(s): J96.00 - ACUTE RESPIRATORY FAILURE, UNSP W HYPOXIA OR HYPERCAPNIA Qualifiers: Respiratory failure complication: hypoxia Qualified Code(s): J96.01 - Acute respiratory failure with hypoxia (3) COVID-19 Code(s): U07.1 - COVID POSITIVE Assessment/Plan Current Medications Generic Name Dose Route Start Last Admin Trade Name Freq PRN Reason Stop Dose Admin Albuterol Sulfate 2 puff 12/15/19 04:44 Ventolin Hfa Inhaler - IH Q4H PRN SHORT OF BREATH/WHEEZING Amino Acids 30 ml 12/18/19 17:30 12/25/19 08:25 Prosource No Carb Liquid Pkt PO 30 ml BID@0800,1730 ROCÍO Administration Artificial Tears 1 drop 12/15/19 09:04 12/24/19 11:46 Artificial Tears OU 1 drop TID PRN Administration Dry eyes Ascorbic Acid 250 mg 12/15/19 22:00 12/25/19 10:27 Vitamin C Oral Solution - NGT 250 mg BID ROCÍO Administration Chlorhexidine Gluconate 1 applic 12/15/19 22:00 12/24/19 23:15 Hibiclens For Decolonization - TP 1 applic HS ROCÍO Administration Cholecalciferol 1,000 unit 12/16/19 10:00 12/25/19 10:28 Vitamin D3 Oral Solution - GT 1,000 units DAILY ROCÍO Administration Enoxaparin Sodium 80 mg 12/15/19 10:00 12/25/19 10:32 Lovenox - SQ 80 mg BID ROCÍO Administration Propofol 1,000,000 mcg in 100 mls @ 2.395 mls/hr 12/15/19 03:45 12/24/19 19:00 Diprivan - IVPB 50 mcg/kg/min TITR [facility] 23.95 mls/hr Titration Protocol 5 MCG/KG/MIN Vecuronium [place] 100 mg in 100 mls @ 4.79 mls/hr 12/15/19 04:15 12/24/19 19:00 Vecuronium [place] IVPB 1.3 mcg/kg/min TITR [facility]O 6.227 mls/hr Titration 1 MCG/KG/MIN Fentanyl 500 mcg in 100 mls @ 15.966 mls/hr 12/17/19 11:30 12/24/19 19:00 Sublimaze Ivpb IVPB 0.94 mcg/kg/hr TITR [facility] 15 mls/hr Titration Protocol 1 MCG/KG/HR Cefepime HCl 1 gm/ Dextrose 100 mls @ 200 mls/hr 12/22/19 22:00 12/25/19 10:33 IVPB 200 mls/hr BID ROCÍO Administration Protocol Norepinephrine Bitartrate 8,000 mcg in 500 mls @ 18.75 mls/hr 12/22/19 19:45 12/25/19 11:15 Levophed Bag IVPB 10 mcg/min TITR [facility] 37.5 mls/hr Titration Protocol 5 MCG/MIN Midazolam HCl 100 mg in 100 mls @ 1 mls/hr 12/24/19 13:00 12/24/19 19:00 Midazolam 100mg/100ml-0.9%Nacl IVPB 10 mg/hr TITR [facility] 10 mls/hr Titration Protocol 1 MG/HR Insulin Human Regular 100 100 mls @ 4 mls/hr 12/24/19 23:30 12/25/19 09:59 units/ Sodium Chloride IVPB 7 units/hr TITR [facility] 7 mls/hr Titration Protocol 4 UNITS/HR Methylprednisolone Sodium Succinate 40 mg 12/15/19 10:00 12/25/19 10:37 Solu-Medrol - IVPUSH 40 mg BID ROC[facility]O Administration Nystatin 1 applic 12/18/19 12:00 12/24/19 23:15 Mycostatin Cream - TP 1 applic BID ROC[facility]O Administration Pantoprazole Sodium 40 mg 12/16/19 10:00 12/25/19 10:35 Protonix Iv IVPUSH 40 mg DAILY [facility]O Administration Sodium Zirconium Cyclosilicate 10 gm 12/23/19 09:15 12/25/19 10:29 Lokelma PO 10 gm DAILY [facility]O Administration Zinc Sulfate 220 mg 12/15/19 22:00 08/17/20 10:29 Orazinc - NGT 220 mg BID ROCÍO Administration Impression 1. NELLIE 2. covid 3. resp failure requiring intubation 4. dm 5. htn 6. gastroparesis 7. sepsis 8. elevated vanco level 9. hyperkalemia Plan - will arrange for HD today - follow repeat labs - restart feed trial - d/c clinimix - cont vent support - pt is difficult to oxygenate - discussed with ICU team - maintain map 65 - s/p Remdesivir x 5 days - s/p Convalescent Plasma treatment - cont to monitor lytes - monitor urine output - cont ICU care
[2019-12-25] MEDS ORDERED: VASOPRESSIN 20 UNITS/ML VIAL IV ONE (11:54)
[2019-12-25] MEDS ORDERED: NOREPINEPHRINE BITARTRATE 4 MG/4 ML ML IV ONE (11:54)
[2019-12-25] MEDS ORDERED: NOREPINEPHRINE BITARTRATE 16,000 MCG in SODIUM CHLORIDE 484 ML IV SCH (12:00)
[2019-12-25 12:06] LABS: BLOOD UREA NITROGEN 99.6 mg/dL (7-18); CALCIUM 7.3 mg/dL (8.5-10.1); CREATININE 3.1 mg/dL (0.55-1.3); POTASSIUM 4.1 mmol/L (3.5-5.1)
[2019-12-25] MEDS: VASOPRESSIN 40 UNITS in SODIUM CHLORIDE 98 ML IVPB SCH (12:28)
[2019-12-25] MEDS ORDERED: HYDROCORTISONE SOD SUCCINATE 100 MG/2 ML VIAL IVPB SCH (12:45)
[2019-12-25] MEDS ORDERED: FLUDROCORTISONE ACETATE 0.1 MG TABLET (FP) PO SCH (12:45)
[2019-12-25 12:48] LABS: ARTERIAL BLD GAS O2 SATURATION 83.7 mmHg (95-98); ARTERIAL BLOOD GAS BASE EXCESS -17.1 mmol/L (-2-2); ARTERIAL BLOOD GAS PO2 71.2 mmHg (80-100)
[2019-12-25] MEDS ORDERED: FENTANYL NS IVPB 500 MCG/100 ML BAG IVPB ONE ×2 (12:49→19:01)
[2019-12-25 12:52] LABS: ALLENS TEST POSITIVE
--- NOTE | 2019-12-25 12:58 | PN ---
Teaching Attending Note Name of Resident: Micha Katz ATTENDING PHYSICIAN STATEMENT I saw and evaluated the patient. I reviewed the resident's note and discussed the case with the resident. I agree with the resident's findings and plan as documented. SUBJECTIVE: Patient seen and examined in the ICU. Remains intubated and sedated. Supine position. AC mode of vent, 75% FiO2. Saturation 94%. 10 mcq NE for hemodynamic support. Intake & Output 12/22/19 12/23/19 12/24/19 12/25/19 23:59 23:59 23:59 23:59 Intake Total 3132 1568.4 3419.4 1516 Output Total 1400 8878 75 25 Balance 1732 -7309.6 3344.4 1491 Last Vital Signs Temp Pulse Resp BP Pulse Ox 98.0 F 94 H 30 H 97/48 L 92 L 12/24/19 22:00 12/25/19 12:28 12/25/19 11:55 12/25/19 12:28 12/25/19 11:55 Active Medications Albumin Human (Albumin Human 25%) 12.5 gm IVPB Q30M [facility] Stop: 12/25/19 14:31 Albuterol Sulfate (Ventolin Hfa Inhaler -) 2 puff IH Q4H PRN PRN Reason: SHORT OF BREATH/WHEEZING Amino Acids (Prosource No Carb Liquid Pkt) 30 ml PO BID@0800,1730 [facility] Last Admin: 12/25/19 08:25 Dose: 30 ml Documented by: Artificial Tears (Artificial Tears) 1 drop OU TID PRN PRN Reason: Dry eyes Last Admin: 12/24/19 11:46 Dose: 1 drop Documented by: Ascorbic Acid (Vitamin C Oral Solution -) 250 mg NGT BID [facility] Last Admin: 12/25/19 10:27 Dose: 250 mg Documented by: Chlorhexidine Gluconate (Hibiclens For Decolonization -) 1 applic TP HS [facility] Last Admin: 12/24/19 23:15 Dose: 1 applic Documented by: Cholecalciferol (Vitamin D3 Oral Solution -) 1,000 unit GT DAILY [facility] Last Admin: 12/25/19 10:28 Dose: 1,000 units Documented by: Enoxaparin Sodium (Lovenox -) 80 mg SQ BID [facility] Last Admin: 12/25/19 10:32 Dose: 80 mg Documented by: Fludrocortisone Acetate (Florinef -) 0.2 mg PO DAILY [facility] Hydrocortisone Sodium Succinate (Solu-Cortef -) 50 mg IVPB Q8H [facility] Propofol (Diprivan -) 1,000,000 mcg in 100 mls @ 2.395 mls/hr IVPB TITR [facility]; Protocol Last Titration: 12/24/19 19:00 Dose: 50 mcg/kg/min, 23.95 mls/hr Documented by: Vecuronium [place] (Vecuronium [place]) 100 mg in 100 mls @ 4.79 mls/hr IVPB TITR [facility] Last Titration: 12/24/19 19:00 Dose: 1.3 mcg/kg/min, 6.227 mls/hr Documented by: Fentanyl (Sublimaze Ivpb) 500 mcg in 100 mls @ 15.966 mls/hr IVPB TITR [facility]; Protocol Last Titration: 12/24/19 19:00 Dose: 0.94 mcg/kg/hr, 15 mls/hr Documented by: Cefepime HCl 1 gm/ Dextrose 100 mls @ 200 mls/hr IVPB BID [facility]; Protocol Last Admin: 12/25/19 10:33 Dose: 200 mls/hr Documented by: Midazolam HCl (Midazolam 100mg/100ml-0.9%Nacl) 100 mg in 100 mls @ 1 mls/hr IVPB TITR [facility]; Protocol Last Titration: 12/24/19 19:00 Dose: 10 mg/hr, 10 mls/hr Documented by: Insulin Human Regular 100 (units/ Sodium Chloride) 100 mls @ 4 mls/hr IVPB TITR [facility]; Protocol Last Titration: 12/25/19 12:31 Dose: 11.5 units/hr, 11.5 mls/hr Documented by: Sodium Chloride (Normal Saline -) 250 mls @ 3,000 mls/hr IV PRN PRN PRN Reason: Hypotension during Dialysis Stop: 12/26/19 11:35 Vasopressin 40 units/ Sodium (Chloride) 100 mls @ 5 mls/hr IVPB ASDIR [facility]; Protocol Last Admin: 12/25/19 12:28 Dose: 2 units/hr, 5 mls/hr Documented by: Norepinephrine Bitartrate 16, (000 mcg/ Sodium Chloride) 500 mls @ 9.375 mls/hr IV TITR [facility]; Protocol Nystatin (Mycostatin Cream -) 1 applic TP BID [facility] Last Admin: 12/24/19 23:15 Dose: 1 applic Documented by: Pantoprazole Sodium (Protonix Iv) 40 mg IVPUSH DAILY [facility] Last Admin: 12/25/19 10:35 Dose: 40 mg Documented by: Sodium Zirconium Cyclosilicate (Lokelma) 10 gm PO DAILY [facility] Last Admin: 12/25/19 10:29 Dose: 10 gm Documented by: Zinc Sulfate (Orazinc -) 220 mg NGT BID [facility] Last Admin: 12/25/19 10:29 Dose: 220 mg Documented by: GEN: intubated, sedated ENT: Sclera clear LUNGS: Vented, bilateral coarse rhonchi CV: S1S2, tachy RRR ABD: Soft, ND, NT+ bowel sounds, no guarding, no rebound EXT: WWP; no edema NEURO: Sedated Laboratory Results - last 24 hr 12/24/19 12/24/19 12/24/19 15:48 18:11 22:51 WBC RBC Hgb Hct MCV MCH MCHC RDW Plt Count MPV Absolute Neuts (auto) Neutrophils % Neutrophils % (Manual) Band Neutrophils % Lymphocytes % Lymphocytes % (Manual) Monocytes % Monocytes % (Manual) Eosinophils % Eosinophils % (Manual) Basophils % Basophils % (Manual) Myelocytes % (Man) Promyelocytes % (Man) Blast Cells % (Manual) Nucleated RBC % Metamyelocytes Hypochromia Platelet Estimate Platelet Comment Polychromasia Poikilocytosis Anisocytosis Microcytosis Macrocytosis Tear Drop Cells Rouleaux Sodium Potassium Chloride Carbon Dioxide Anion Gap BUN Creatinine Est GFR (CKD-EPI)AfAm Est GFR (CKD-EPI)NonAf POC Glucometer [phone] Random Glucose Calcium Phosphorus Magnesium Total Bilirubin AST ALT Alkaline Phosphatase Total Protein Albumin 12/25/19 12/25/19 12/25/19 00:20 01:34 02:52 WBC RBC Hgb Hct MCV MCH MCHC RDW Plt Count MPV Absolute Neuts (auto) Neutrophils % Neutrophils % (Manual) Band Neutrophils % Lymphocytes % Lymphocytes % (Manual) Monocytes % Monocytes % (Manual) Eosinophils % Eosinophils % (Manual) Basophils % Basophils % (Manual) Myelocytes % (Man) Promyelocytes % (Man) Blast Cells % (Manual) Nucleated RBC % Metamyelocytes Hypochromia Platelet Estimate Platelet Comment Polychromasia Poikilocytosis Anisocytosis Microcytosis Macrocytosis Tear Drop Cells Rouleaux Sodium Potassium Chloride Carbon Dioxide Anion Gap BUN Creatinine Est GFR (CKD-EPI)AfAm Est GFR (CKD-EPI)NonAf POC Glucometer [phone] Random Glucose Calcium Phosphorus Magnesium Total Bilirubin AST ALT Alkaline Phosphatase Total Protein Albumin 12/25/19 12/25/19 12/25/19 04:10 06:00 06:00 WBC 25.8 H RBC 2.98 L Hgb 7.9 L Hct 23.7 L MCV 79.6 L MCH 26.4 MCHC 33.1 RDW 15.0 Plt Count 195 MPV 9.4 Absolute Neuts (auto) 23.7 H Neutrophils % 91.9 H Neutrophils % (Manual) 92.8 H Band Neutrophils % 1.0 Lymphocytes % 4.6 L D Lymphocytes % (Manual) 3.1 L Monocytes % 3.3 L Monocytes % (Manual) 3 L Eosinophils % 0.0 D Eosinophils % (Manual) 0.0 Basophils % 0.2 Basophils % (Manual) 0.0 Myelocytes % (Man) 0 D Promyelocytes % (Man) 0 Blast Cells % (Manual) 0 Nucleated RBC % 1 H Metamyelocytes 0 Hypochromia 1+ Platelet Estimate Normal Platelet Comment No clumping noted Polychromasia 0 Poikilocytosis 1+ Anisocytosis 1+ Microcytosis 1+ Macrocytosis 0 Tear Drop Cells 1+ Rouleaux 1+ Sodium 122 L Potassium 4.1 Chloride 87 L Carbon Dioxide 16 L Anion Gap 19 H BUN 94.9 H Creatinine 3.0 H Est GFR (CKD-EPI)AfAm 20.44 Est GFR (CKD-EPI)NonAf 17.64 POC Glucometer 271 Random Glucose 273 H Calcium 7.3 L Phosphorus 7.1 H Magnesium 2.2 Total Bilirubin 1.0 AST 20 ALT 19 Alkaline Phosphatase 202 H Total Protein 5.8 L Albumin 1.3 L 12/25/19 12/25/19 12/25/19 06:09 07:24 08:28 WBC RBC Hgb Hct MCV MCH MCHC RDW Plt Count MPV Absolute Neuts (auto) Neutrophils % Neutrophils % (Manual) Band Neutrophils % Lymphocytes % Lymphocytes % (Manual) Monocytes % Monocytes % (Manual) Eosinophils % Eosinophils % (Manual) Basophils % Basophils % (Manual) Myelocytes % (Man) Promyelocytes % (Man) Blast Cells % (Manual) Nucleated RBC % Metamyelocytes Hypochromia Platelet Estimate Platelet Comment Polychromasia Poikilocytosis Anisocytosis Microcytosis Macrocytosis Tear Drop Cells Rouleaux Sodium Potassium Chloride Carbon Dioxide Anion Gap BUN Creatinine Est GFR (CKD-EPI)AfAm Est GFR (CKD-EPI)NonAf POC Glucometer 327 232 245 Random Glucose Calcium Phosphorus Magnesium Total Bilirubin AST ALT Alkaline Phosphatase Total Protein Albumin 12/25/19 12/25/19 12/25/19 09:31 10:44 10:55 WBC RBC Hgb Hct MCV MCH MCHC RDW Plt Count MPV Absolute Neuts (auto) Neutrophils % Neutrophils % (Manual) Band Neutrophils % Lymphocytes % Lymphocytes % (Manual) Monocytes % Monocytes % (Manual) Eosinophils % Eosinophils % (Manual) Basophils % Basophils % (Manual) Myelocytes % (Man) Promyelocytes % (Man) Blast Cells % (Manual) Nucleated RBC % Metamyelocytes Hypochromia Platelet Estimate Platelet Comment Polychromasia Poikilocytosis Anisocytosis Microcytosis Macrocytosis Tear Drop Cells Rouleaux Sodium 120 L Potassium 4.1 Chloride 85 L Carbon Dioxide 17 L Anion Gap 19 H BUN 99.6 H Creatinine 3.1 H Est GFR (CKD-EPI)AfAm 19.65 Est GFR (CKD-EPI)NonAf 16.95 POC Glucometer 226 225 Random Glucose 259 H Calcium 7.3 L Phosphorus Magnesium Total Bilirubin AST ALT Alkaline Phosphatase Total Protein Albumin 12/25/19 12:26 WBC RBC Hgb Hct MCV MCH MCHC RDW Plt Count MPV Absolute Neuts (auto) Neutrophils % Neutrophils % (Manual) Band Neutrophils % Lymphocytes % Lymphocytes % (Manual) Monocytes % Monocytes % (Manual) Eosinophils % Eosinophils % (Manual) Basophils % Basophils % (Manual) Myelocytes % (Man) Promyelocytes % (Man) Blast Cells % (Manual) Nucleated RBC % Metamyelocytes Hypochromia Platelet Estimate Platelet Comment Polychromasia Poikilocytosis Anisocytosis Microcytosis Macrocytosis Tear Drop Cells Rouleaux Sodium Potassium Chloride Carbon Dioxide Anion Gap BUN Creatinine Est GFR (CKD-EPI)AfAm Est GFR (CKD-EPI)NonAf POC Glucometer 242 Random Glucose Calcium Phosphorus Magnesium Total Bilirubin AST ALT Alkaline Phosphatase Total Protein Albumin ASSESSMENT/PLAN: Acute Respiratory Failure due to ARDS due to COVID19 Pneumonitis Capillary Leak Syndrome DM Hyperglycemia HTN Gastroparesis Sepsis PE ruled out NELLIE Hyponatremia Maintain supine position : FiO2 was decreased to 75% with saturation 94% : Will hold on prone position today [facility] was contacted yesterday. The patient is not a candidate for ECMO therapy due to Renal Failure/HD and being intubated greater than 7 days Conservative IVF : Stop Clinimix Pressors to maintain MAP > 65 LTVV; PPlat goal<30 Continue Steroids Sedation/Paralyze for vent synchrony Full AC Strict Isolation and usage of Full PPE S/P Remdesivir x 5 days S/P Convalescent Plasma treatment Will not give Actemra due to active infectious process Vit C; Vitamin D; Zinc Strict I & O Overall prognosis appears poor. Despite young age, very little utility to perform CPR in this setting Dr Rivas Critical care time spent in reviewing chart, evaluating patient and formulating plan - 36 minutes.
[2019-12-25 13:01] LABS: ARTERIAL BLOOD GAS pH 6.994 (7.350-7.450)
[2019-12-25] MEDS ORDERED: SODIUM BICARBONATE 8.4% 50 MEQ/50 ML DISP.SYRIN IVPUSH ONE (13:02)
[2019-12-25] MEDS: ALBUMIN HUMAN 25% 12.5 GM/50 ML VIAL IVPB SCH ×4 (13:25→14:55)
[2019-12-25] MEDS ORDERED: HYDROCORTISONE SOD SUCCINATE 2 ML ONE (14:48)
[2019-12-25] MEDS: HYDROCORTISONE SOD SUCCINATE 100 MG/2 ML VIAL IVPUSH SCH ×2 (14:52→21:17)
[2019-12-25] MEDS: VECURONIUM BROMIDE 100 MG/100 ML BAG IVPB SCH (15:00)
--- NOTE | 2019-12-25 15:30 | PN ---
Progress Note, Physician History of Present Illness: REMAINS SEDATED ON VENTILATOR AFEBRILE WBC INCREASED RENAL FUNCTION WORSENING - Current Medication List Current Medications: Active Medications Albuterol Sulfate (Ventolin Hfa Inhaler -) 2 puff IH Q4H PRN PRN Reason: SHORT OF BREATH/WHEEZING Amino Acids (Prosource No Carb Liquid Pkt) 30 ml PO BID@0800,1730 [facility] Last Admin: 12/25/19 08:25 Dose: 30 ml Documented by: Artificial Tears (Artificial Tears) 1 drop OU TID PRN PRN Reason: Dry eyes Last Admin: 12/24/19 11:46 Dose: 1 drop Documented by: Ascorbic Acid (Vitamin C Oral Solution -) 250 mg NGT BID [facility] Last Admin: 12/25/19 10:27 Dose: 250 mg Documented by: Chlorhexidine Gluconate (Hibiclens For Decolonization -) 1 applic TP HS [facility] Last Admin: 12/24/19 23:15 Dose: 1 applic Documented by: Cholecalciferol (Vitamin D3 Oral Solution -) 1,000 unit GT DAILY [facility] Last Admin: 12/25/19 10:28 Dose: 1,000 units Documented by: Enoxaparin Sodium (Lovenox -) 80 mg SQ BID [facility] Last Admin: 12/25/19 10:32 Dose: 80 mg Documented by: Fludrocortisone Acetate (Florinef -) 0.2 mg PO DAILY [facility] Hydrocortisone Sodium Succinate (Solu-Cortef -) 50 mg IVPUSH TID [facility] Last Admin: 12/25/19 14:52 Dose: 50 mg Documented by: Propofol (Diprivan -) 1,000,000 mcg in 100 mls @ 2.395 mls/hr IVPB TITR [facility]; Protocol Last Titration: 12/24/19 19:00 Dose: 50 mcg/kg/min, 23.95 mls/hr Documented by: Vecuronium [place] (Vecuronium [place]) 100 mg in 100 mls @ 4.79 mls/hr IVPB TITR [facility] Last Titration: 12/24/19 19:00 Dose: 1.3 mcg/kg/min, 6.227 mls/hr Documented by: Fentanyl (Sublimaze Ivpb) 500 mcg in 100 mls @ 15.966 mls/hr IVPB TITR [facility]; Protocol Last Titration: 12/24/19 19:00 Dose: 0.94 mcg/kg/hr, 15 mls/hr Documented by: Cefepime HCl 1 gm/ Dextrose 100 mls @ 200 mls/hr IVPB BID [facility]; Protocol Last Admin: 12/25/19 10:33 Dose: 200 mls/hr Documented by: Midazolam HCl (Midazolam 100mg/100ml-0.9%Nacl) 100 mg in 100 mls @ 1 mls/hr IVPB TITR [facility]; Protocol Last Titration: 12/24/19 19:00 Dose: 10 mg/hr, 10 mls/hr Documented by: Insulin Human Regular 100 (units/ Sodium Chloride) 100 mls @ 4 mls/hr IVPB TITR [facility]; Protocol Last Titration: 12/25/19 13:44 Dose: 13.5 units/hr, 13.5 mls/hr Documented by: Sodium Chloride (Normal Saline -) 250 mls @ 3,000 mls/hr IV PRN PRN PRN Reason: Hypotension during Dialysis Stop: 12/26/19 11:35 Vasopressin 40 units/ Sodium (Chloride) 100 mls @ 5 mls/hr IVPB ASDIR [facility]; Protocol Last Titration: 12/25/19 14:10 Dose: 2 units/hr, 5 mls/hr Documented by: Norepinephrine Bitartrate 16, (000 mcg/ Sodium Chloride) 500 mls @ 9.375 mls/hr IV TITR [facility]; Protocol Last Titration: 12/25/19 14:10 Dose: 16 mcg/min, 30 mls/hr Documented by: Nystatin (Mycostatin Cream -) 1 applic TP BID [facility] Last Admin: 12/24/19 23:15 Dose: 1 applic Documented by: Pantoprazole Sodium (Protonix Iv) 40 mg IVPUSH DAILY [facility] Last Admin: 12/25/19 10:35 Dose: 40 mg Documented by: Sodium Zirconium Cyclosilicate (Lokelma) 10 gm PO DAILY [facility] Last Admin: 12/25/19 10:29 Dose: 10 gm Documented by: Zinc Sulfate (Orazinc -) 220 mg NGT BID [facility] Last Admin: 12/25/19 10:29 Dose: 220 mg Documented by: - Objective Vital Signs: Vital Signs Temperature 98.0 F 12/24/19 22:00 Pulse Rate 112 H 12/25/19 14:30 Respiratory Rate 30 H 12/25/19 14:30 Blood Pressure 140/69 12/25/19 14:30 O2 Sat by Pulse Oximetry (%) 87 L 12/25/19 14:30 Constitutional: Yes: No Distress, Obese Cardiovascular: Yes: Regular Rate and Rhythm, Tachycardia, S1, S2 Respiratory: Yes: Mechanically Ventilated Gastrointestinal: Yes: Normal Bowel Sounds, Soft, Abdomen, Obese. No: Tenderness Edema: Yes Labs: CBC, BMP 12/25/19 06:00 12/25/19 10:55 INR, PTT INR 0.92 (0.83-1.09) 12/05/19 06:15 Assessment/Plan COVID-19 PNEUMONITIS S/P RESP FAILURE AZOTEMIA CONTINUE EMPIRIC CEFEPIME ADJUST FOR AZOTEMIA OBTAIN RANDOM VANCO LEVEL RECEIVED CONVALESCENT PLASMA, REMDESIVIR VENTILATORY SUPPORT
[2019-12-25] MEDS: MIDAZOLAM IN 0.9 % SOD.CHLORID 100 MG/100 ML PLAST..BAG IVPB SCH (16:32)
[2019-12-25] MEDS: PROPOFOL 1,000,000 MCG/100 ML VIAL IVPB SCH ×2 (17:44→22:04)
[2019-12-25 18:28] LABS: ARTERIAL BLD GAS O2 SATURATION 87.6 mmHg (95-98); ARTERIAL BLOOD GAS BASE EXCESS -14.2 mmol/L (-2-2); ARTERIAL BLOOD GAS PO2 77.1 mmHg (80-100); ARTERIAL BLOOD GAS pH 7.026 (7.350-7.450)
[2019-12-25 18:29] LABS: VENT RATE 35
--- NOTE | 2019-12-25 18:30 | CONSULT ---
Consult Consult Specialty:: Endocrine Reason for Consultation:: diabetes mellitus type 2 - History of Present Illness Chief Complaint: intubated /sedated History of Present Illness: 49yfemale,pmh type 2 dm,htn,ckd,gastroparesis,admitted with respiratory di fficulty,weakness fatigue worsening respiratory failure requiring intubation,and sedation,she is on respiratory support intubated sedated. on iv steroid and mineralcorticoid support.blood sugars have been elevated secondary to stress and septic state - Past Medical History Cardio/Vascular: Yes: Hyperlipdemia ...LMP: 08/20/16 Endocrine: Yes: Diabetes Mellitus - Alcohol/Substance Use Hx Alcohol Use: No - Smoking History Smoking history: Never smoked Have you smoked in the past 12 months: No Aproximately how many cigarettes per day: 0 - Social History Usual Living Arrangement: With Spouse History of Recent Travel: No Home Medications - Allergies Allergies/Adverse Reactions: Allergies Allergy/AdvReac Type Severity Reaction Status Date / Time Penicillins Allergy Verified 12/05/19 05:18 - Home Medications Home Medications: Ambulatory Orders Insulin Glargine,Hum.rec.anlog [Lantus Solostar PEN (NF)] 50 units SQ DAILY 09/18/16 Ondansetron [Zofran Odt -] 4 mg SL TID #21 od.tablet 10/08/16 Amitriptyline HCl [Elavil -] 10 mg PO BID 12/05/19 Gabapentin [Neurontin -] 900 mg PO BID 12/05/19 Omeprazole 20 mg PO DAILY 12/05/19 metFORMIN HCL [Metformin HCl ER] 1,000 mg PO DAILY 12/05/19 Ergocalciferol (Vitamin D2) [Vitamin D2] 50,000 units PO WEEKLY 12/08/19 Family Medical History Family History: Unable to Obtain Review of Systems Unable to obtain ROS, reason: intubated sedated Physical Exam Vital Signs: Vital Signs Temperature 97.8 F 12/25/19 16:00 Pulse Rate 112 H 12/25/19 16:00 Respiratory Rate 30 H 12/25/19 16:05 Blood Pressure 138/71 12/25/19 16:00 O2 Sat by Pulse Oximetry (%) 93 L 12/25/19 16:05 Labs: CBC, BMP 12/25/19 06:00 12/25/19 10:55 Problem List - Problems (1) Controlled diabetes mellitus with hyperglycemia, with long-term current use of insulin Problems reviewed: Yes Code(s): E11.65 - TYPE 2 DIABETES MELLITUS WITH HYPERGLYCEMIA; Z79.4 - LATHE HAND (CURRENT) USE OF INSULIN (2) Controlled diabetes mellitus with hyperglycemia, with long-term current use of insulin Code(s): E11.65 - TYPE 2 DIABETES MELLITUS WITH HYPERGLYCEMIA; Z79.4 - LATHE HAND (CURRENT) USE OF INSULIN (3) NELLIE (acute kidney injury) Code(s): N17.9 - ACUTE KIDNEY FAILURE, UNSPECIFIED (4) Acute respiratory failure Code(s): J96.00 - ACUTE RESPIRATORY FAILURE, UNSP W HYPOXIA OR HYPERCAPNIA Qualifiers: Respiratory failure complication: hypoxia Qualified Code(s): J96.01 - Acute respiratory failure with hypoxia (5) COVID-19 Code(s): U07.1 - COVID POSITIVE (6) Hyperglycemia due to diabetes mellitus Code(s): E11.65 - TYPE 2 DIABETES MELLITUS WITH HYPERGLYCEMIA (7) Sepsis Code(s): A41.9 - SEPSIS, UNSPECIFIED ORGANISM Qualifiers: Sepsis type: sepsis due to unspecified organism Sepsis acute organ dysfunction status: with acute organ dysfunction Severe sepsis acute organ dysfunction type: acute respiratory failure Acute respiratory failure type: with hypoxia Severe sepsis shock status: without septic shock Qualified Code(s): A41.9 - Sepsis, unspecified organism; R65.20 - Severe sepsis without septic shock; J96.01 - Acute respiratory failure with hypoxia (8) Suspected COVID-19 virus infection Code(s): Z20.828 - CONTACT W AND EXPOSURE TO OTH VIRAL COMMUNICABLE DISEASES (9) Abdominal pain Code(s): R10.9 - UNSPECIFIED ABDOMINAL PAIN Qualifiers: Abdominal location: unspecified location Qualified Code(s): R10.9 - Unspecified abdominal pain (10) Chronic abdominal pain Code(s): R10.9 - UNSPECIFIED ABDOMINAL PAIN; G89.29 - OTHER CHRONIC PAIN Assessment/Plan Current Active Problems NELLIE (acute kidney injury) (Acute) Acute respiratory failure (Acute) COVID-19 (Acute) Hyperglycemia due to diabetes mellitus (Acute) Sepsis (Acute) Suspected COVID-19 virus infection (Acute) Abnormal Lab Results 12/25/19 12/25/19 12/25/19 06:00 06:00 10:55 WBC 25.8 H RBC 2.98 L Hgb 7.9 L Hct 23.7 L MCV 79.6 L Absolute Neuts (auto) 23.7 H Neutrophils % 91.9 H Neutrophils % (Manual) 92.8 H Lymphocytes % 4.6 L D Lymphocytes % (Manual) 3.1 L Monocytes % 3.3 L Monocytes % (Manual) 3 L Nucleated RBC % 1 H ABG pH ABG pCO2 ABG pO2 ABG HCO3 ABG O2 Sat (Measured) ABG Base Excess Sodium 122 L 120 L Chloride 87 L 85 L Carbon Dioxide 16 L 17 L Anion Gap 19 H 19 H BUN 94.9 H 99.6 H Creatinine 3.0 H 3.1 H Random Glucose 273 H 259 H Calcium 7.3 L 7.3 L Phosphorus 7.1 H Alkaline Phosphatase 202 H Total Protein 5.8 L Albumin 1.3 L 12/25/19 12/25/19 12:25 18:20 WBC RBC Hgb Hct MCV Absolute Neuts (auto) Neutrophils % Neutrophils % (Manual) Lymphocytes % Lymphocytes % (Manual) Monocytes % Monocytes % (Manual) Nucleated RBC % ABG pH 6.994 L* 7.026 L* ABG pCO2 57.10 H 67.00 H ABG pO2 71.2 L 77.1 L ABG HCO3 13.6 L 17.1 L ABG O2 Sat (Measured) 83.7 L 87.6 L ABG Base Excess -17.1 L -14.2 L Sodium Chloride Carbon Dioxide Anion Gap BUN Creatinine Random Glucose Calcium Phosphorus Alkaline Phosphatase Total Protein Albumin Laboratory Results - last 24 hr 12/24/19 12/25/19 12/25/19 22:51 00:20 01:34 WBC RBC Hgb Hct MCV MCH MCHC RDW Plt Count MPV Absolute Neuts (auto) Neutrophils % Neutrophils % (Manual) Band Neutrophils % Lymphocytes % Lymphocytes % (Manual) Monocytes % Monocytes % (Manual) Eosinophils % Eosinophils % (Manual) Basophils % Basophils % (Manual) Myelocytes % (Man) Promyelocytes % (Man) Blast Cells % (Manual) Nucleated RBC % Metamyelocytes Hypochromia Platelet Estimate Platelet Comment Polychromasia Poikilocytosis Anisocytosis Microcytosis Macrocytosis Tear Drop Cells Rouleaux Anticoagulation Therapy Puncture Site Patient Temperature ABG pH ABG pCO2 ABG pO2 ABG HCO3 ABG O2 Sat (Measured) ABG O2 Content ABG Base Excess [place] Test Patient On Oxygen O2 Delivery Device Oxygen Flow Rate Vent Mode Vent Rate Mechanical Rate PEEP Pressure Support Vent Sodium Potassium Chloride Carbon Dioxide Anion Gap BUN Creatinine Est GFR (CKD-EPI)AfAm Est GFR (CKD-EPI)NonAf POC Glucometer [phone] Random Glucose Calcium Phosphorus Magnesium Total Bilirubin AST ALT Alkaline Phosphatase Total Protein Albumin 12/25/19 12/25/19 12/25/19 02:52 04:10 06:00 WBC 25.8 H RBC 2.98 L Hgb 7.9 L Hct 23.7 L MCV 79.6 L MCH 26.4 MCHC 33.1 RDW 15.0 Plt Count 195 MPV 9.4 Absolute Neuts (auto) 23.7 H Neutrophils % 91.9 H Neutrophils % (Manual) 92.8 H Band Neutrophils % 1.0 Lymphocytes % 4.6 L D Lymphocytes % (Manual) 3.1 L Monocytes % 3.3 L Monocytes % (Manual) 3 L Eosinophils % 0.0 D Eosinophils % (Manual) 0.0 Basophils % 0.2 Basophils % (Manual) 0.0 Myelocytes % (Man) 0 D Promyelocytes % (Man) 0 Blast Cells % (Manual) 0 Nucleated RBC % 1 H Metamyelocytes 0 Hypochromia 1+ Platelet Estimate Normal Platelet Comment No clumping noted Polychromasia 0 Poikilocytosis 1+ Anisocytosis 1+ Microcytosis 1+ Macrocytosis 0 Tear Drop Cells 1+ Rouleaux 1+ Anticoagulation Therapy Puncture Site Patient Temperature ABG pH ABG pCO2 ABG pO2 ABG HCO3 ABG O2 Sat (Measured) ABG O2 Content ABG Base Excess [place] Test Patient On Oxygen O2 Delivery Device Oxygen Flow Rate Vent Mode Vent Rate Mechanical Rate PEEP Pressure Support Vent Sodium Potassium Chloride Carbon Dioxide Anion Gap BUN Creatinine Est GFR (CKD-EPI)AfAm Est GFR (CKD-EPI)NonAf POC Glucometer 314 271 Random Glucose Calcium Phosphorus Magnesium Total Bilirubin AST ALT Alkaline Phosphatase Total Protein Albumin 12/25/19 12/25/19 12/25/19 06:00 06:09 07:24 WBC RBC Hgb Hct MCV MCH MCHC RDW Plt Count MPV Absolute Neuts (auto) Neutrophils % Neutrophils % (Manual) Band Neutrophils % Lymphocytes % Lymphocytes % (Manual) Monocytes % Monocytes % (Manual) Eosinophils % Eosinophils % (Manual) Basophils % Basophils % (Manual) Myelocytes % (Man) Promyelocytes % (Man) Blast Cells % (Manual) Nucleated RBC % Metamyelocytes Hypochromia Platelet Estimate Platelet Comment Polychromasia Poikilocytosis Anisocytosis Microcytosis Macrocytosis Tear Drop Cells Rouleaux Anticoagulation Therapy Puncture Site Patient Temperature ABG pH ABG pCO2 ABG pO2 ABG HCO3 ABG O2 Sat (Measured) ABG O2 Content ABG Base Excess [place] Test Patient On Oxygen O2 Delivery Device Oxygen Flow Rate Vent Mode Vent Rate Mechanical Rate PEEP Pressure Support Vent Sodium 122 L Potassium 4.1 Chloride 87 L Carbon Dioxide 16 L Anion Gap 19 H BUN 94.9 H Creatinine 3.0 H Est GFR (CKD-EPI)AfAm 20.44 Est GFR (CKD-EPI)NonAf 17.64 POC Glucometer 327 232 Random Glucose 273 H Calcium 7.3 L Phosphorus 7.1 H Magnesium 2.2 Total Bilirubin 1.0 AST 20 ALT 19 Alkaline Phosphatase 202 H Total Protein 5.8 L Albumin 1.3 L 12/25/19 12/25/19 12/25/19 08:28 09:31 10:44 WBC RBC Hgb Hct MCV MCH MCHC RDW Plt Count MPV Absolute Neuts (auto) Neutrophils % Neutrophils % (Manual) Band Neutrophils % Lymphocytes % Lymphocytes % (Manual) Monocytes % Monocytes % (Manual) Eosinophils % Eosinophils % (Manual) Basophils % Basophils % (Manual) Myelocytes % (Man) Promyelocytes % (Man) Blast Cells % (Manual) Nucleated RBC % Metamyelocytes Hypochromia Platelet Estimate Platelet Comment Polychromasia Poikilocytosis Anisocytosis Microcytosis Macrocytosis Tear Drop Cells Rouleaux Anticoagulation Therapy Puncture Site Patient Temperature ABG pH ABG pCO2 ABG pO2 ABG HCO3 ABG O2 Sat (Measured) ABG O2 Content ABG Base Excess [place] Test Patient On Oxygen O2 Delivery Device Oxygen Flow Rate Vent Mode Vent Rate Mechanical Rate PEEP Pressure Support Vent Sodium Potassium Chloride Carbon Dioxide Anion Gap BUN Creatinine Est GFR (CKD-EPI)AfAm Est GFR (CKD-EPI)NonAf POC Glucometer [phone] Random Glucose Calcium Phosphorus Magnesium Total Bilirubin AST ALT Alkaline Phosphatase Total Protein Albumin 12/25/19 12/25/19 12/25/19 10:55 12:25 12:26 WBC RBC Hgb Hct MCV MCH MCHC RDW Plt Count MPV Absolute Neuts (auto) Neutrophils % Neutrophils % (Manual) Band Neutrophils % Lymphocytes % Lymphocytes % (Manual) Monocytes % Monocytes % (Manual) Eosinophils % Eosinophils % (Manual) Basophils % Basophils % (Manual) Myelocytes % (Man) Promyelocytes % (Man) Blast Cells % (Manual) Nucleated RBC % Metamyelocytes Hypochromia Platelet Estimate Platelet Comment Polychromasia Poikilocytosis Anisocytosis Microcytosis Macrocytosis Tear Drop Cells Rouleaux Anticoagulation Therapy No Result Required. Puncture Site Right radial Patient Temperature No Result Required. ABG pH 6.994 L* ABG pCO2 57.10 H ABG pO2 71.2 L ABG HCO3 13.6 L ABG O2 Sat (Measured) 83.7 L ABG O2 Content No Result Required. ABG Base Excess -17.1 L [place] Test Positive Patient On Oxygen Yes O2 Delivery Device No Result Required. Oxygen Flow Rate 75 Vent Mode No Result Required. Vent Rate No Result Required. Mechanical Rate No Result Required. PEEP No Result Required. Pressure Support Vent No Result Required. Sodium 120 L Potassium 4.1 Chloride 85 L Carbon Dioxide 17 L Anion Gap 19 H BUN 99.6 H Creatinine 3.1 H Est GFR (CKD-EPI)AfAm 19.65 Est GFR (CKD-EPI)NonAf 16.95 POC Glucometer 242 Random Glucose 259 H Calcium 7.3 L Phosphorus Magnesium Total Bilirubin AST ALT Alkaline Phosphatase Total Protein Albumin 12/25/19 12/25/19 12/25/19 13:31 14:32 15:29 WBC RBC Hgb Hct MCV MCH MCHC RDW Plt Count MPV Absolute Neuts (auto) Neutrophils % Neutrophils % (Manual) Band Neutrophils % Lymphocytes % Lymphocytes % (Manual) Monocytes % Monocytes % (Manual) Eosinophils % Eosinophils % (Manual) Basophils % Basophils % (Manual) Myelocytes % (Man) Promyelocytes % (Man) Blast Cells % (Manual) Nucleated RBC % Metamyelocytes Hypochromia Platelet Estimate Platelet Comment Polychromasia Poikilocytosis Anisocytosis Microcytosis Macrocytosis Tear Drop Cells Rouleaux Anticoagulation Therapy Puncture Site Patient Temperature ABG pH ABG pCO2 ABG pO2 ABG HCO3 ABG O2 Sat (Measured) ABG O2 Content ABG Base Excess [place] Test Patient On Oxygen O2 Delivery Device Oxygen Flow Rate Vent Mode Vent Rate Mechanical Rate PEEP Pressure Support Vent Sodium Potassium Chloride Carbon Dioxide Anion Gap BUN Creatinine Est GFR (CKD-EPI)AfAm Est GFR (CKD-EPI)NonAf POC Glucometer [phone] Random Glucose Calcium Phosphorus Magnesium Total Bilirubin AST ALT Alkaline Phosphatase Total Protein Albumin 12/25/19 12/25/19 12/25/19 16:28 17:41 18:20 WBC RBC Hgb Hct MCV MCH MCHC RDW Plt Count MPV Absolute Neuts (auto) Neutrophils % Neutrophils % (Manual) Band Neutrophils % Lymphocytes % Lymphocytes % (Manual) Monocytes % Monocytes % (Manual) Eosinophils % Eosinophils % (Manual) Basophils % Basophils % (Manual) Myelocytes % (Man) Promyelocytes % (Man) Blast Cells % (Manual) Nucleated RBC % Metamyelocytes Hypochromia Platelet Estimate Platelet Comment Polychromasia Poikilocytosis Anisocytosis Microcytosis Macrocytosis Tear Drop Cells Rouleaux Anticoagulation Therapy No Result Required. Puncture Site Right radial Patient Temperature No Result Required. ABG pH 7.026 L* ABG pCO2 67.00 H ABG pO2 77.1 L ABG HCO3 17.1 L ABG O2 Sat (Measured) 87.6 L ABG O2 Content No Result Required. ABG Base Excess -14.2 L [place] Test No Result Required. Patient On Oxygen Yes O2 Delivery Device No Result Required. Oxygen Flow Rate 85 Vent Mode No Result Required. Vent Rate 35 Mechanical Rate No Result Required. PEEP 10.0 Pressure Support Vent No Result Required. Sodium Potassium Chloride Carbon Dioxide Anion Gap BUN Creatinine Est GFR (CKD-EPI)AfAm Est GFR (CKD-EPI)NonAf POC Glucometer 161 139 Random Glucose Calcium Phosphorus Magnesium Total Bilirubin AST ALT Alkaline Phosphatase Total Protein Albumin 12/25/19 12/25/19 12/25/19 18:35 19:34 20:08 WBC RBC Hgb Hct MCV MCH MCHC RDW Plt Count MPV Absolute Neuts (auto) Neutrophils % Neutrophils % (Manual) Band Neutrophils % Lymphocytes % Lymphocytes % (Manual) Monocytes % Monocytes % (Manual) Eosinophils % Eosinophils % (Manual) Basophils % Basophils % (Manual) Myelocytes % (Man) Promyelocytes % (Man) Blast Cells % (Manual) Nucleated RBC % Metamyelocytes Hypochromia Platelet Estimate Platelet Comment Polychromasia Poikilocytosis Anisocytosis Microcytosis Macrocytosis Tear Drop Cells Rouleaux Anticoagulation Therapy Puncture Site Patient Temperature ABG pH ABG pCO2 ABG pO2 ABG HCO3 ABG O2 Sat (Measured) ABG O2 Content ABG Base Excess [place] Test Patient On Oxygen O2 Delivery Device Oxygen Flow Rate Vent Mode Vent Rate Mechanical Rate PEEP Pressure Support Vent Sodium Potassium Chloride Carbon Dioxide Anion Gap BUN Creatinine Est GFR (CKD-EPI)AfAm Est GFR (CKD-EPI)NonAf POC Glucometer 125 107 106 Random Glucose Calcium Phosphorus Magnesium Total Bilirubin AST ALT Alkaline Phosphatase Total Protein Albumin plan: insulin [id number] while on steroid once feeding restarted will need bgm titration ck clycomark bgm qid novolog scale insulin coverage will titrate for requirement as needed
[2019-12-25] MEDS: CHLORHEXIDINE GLUCONATE 4% CLEANSER FOR DECOLONIZATION TP SCH (21:16)
[2019-12-26] MEDS: INSULIN REGULAR 100 UNITS in SODIUM CHLORIDE 99 ML IVPB SCH (01:57)
[2019-12-26 02:04] VITALS: TEMP 98.6
[2019-12-26] MEDS: VASOPRESSIN 40 UNITS in SODIUM CHLORIDE 98 ML IVPB SCH (02:58)
[2019-12-26] MEDS ORDERED: FENTANYL NS IVPB 500 MCG/100 ML BAG IVPB ONE (02:59)
[2019-12-26] MEDS: FENTANYL IVPB 500 MCG/100 ML BAG IVPB SCH (05:11)
[2019-12-26] MEDS: VECURONIUM BROMIDE 100 MG/100 ML BAG IVPB SCH (05:11)
[2019-12-26] MEDS: HYDROCORTISONE SOD SUCCINATE 100 MG/2 ML VIAL IVPUSH SCH (05:11)
[2019-12-26] MEDS: PROPOFOL 1,000,000 MCG/100 ML VIAL IVPB SCH (05:11)
[2019-12-26] MEDS: MIDAZOLAM IN 0.9 % SOD.CHLORID 100 MG/100 ML PLAST..BAG IVPB SCH (05:12)
[2019-12-26 05:40] LABS: ARTERIAL BLOOD GAS PO2 75.5 mmHg (80-100)
[2019-12-26 05:41] LABS: ALLENS TEST POSITIVE; VENT MODE A/C; VENT RATE 30
[2019-12-26 05:45] LABS: ARTERIAL BLOOD GAS pH 7.087 (7.350-7.450)
[2019-12-26 06:33] VITALS: PULSE 96
[2019-12-26] MEDS ORDERED: EPINEPHrine/PF 1 MG/1 ML (1:1,000) AMPULE ONE (07:00)
[2019-12-26] MEDS ORDERED: AMIODARONE HCL 150 MG/3 ML VIAL ONE ×2 (07:10→07:21)
[2019-12-26 07:24] LABS: BASO % 0.6 % (0-2.0); EOS % 0.1 % (0-4.5); HEMATOCRIT 21.5 % (32.4-45.2); HEMOGLOBIN 7.3 GM/dL (10.7-15.3); LYMPH % 7.6 % (8-40); MCHC 33.8 g/dl (32.0-36.0); MEAN CELL VOLUME 79.9 fl (80-96); MEAN PLT VOLUME 9.4 fl (7.5-11.1); NEUT % 85.7 % (42.8-82.8); PLATELET COUNT 220 K/MM3 (134-434); RDW 15.1 % (11.6-15.6)
[2019-12-26 07:46] VITALS: BP 132/38
[2019-12-26 07:50] LABS: ALBUMIN 1.7 g/dl (3.4-5.0); BILIRUBIN,TOTAL 0.7 mg/dL (0.2-1); CALCIUM 7.4 mg/dL (8.5-10.1); CREATININE 3.2 mg/dL (0.55-1.3); MAGNESIUM 2.1 mg/dL (1.8-2.4); PHOSPHOROUS 7.6 mg/dL (2.5-4.9); POTASSIUM 3.9 mmol/L (3.5-5.1)
--- NOTE | 2019-12-26 07:55 | PN ---
Progress Note (short form) - Note Progress Note: Informed by nurse on 12/26/2019 about pt being in asystole. Code 99 called at 0652. Please see code sheet for details. Time of on [address] Vicente Gary.
[2019-12-26 07:57] LABS: WHITE BLOOD COUNT 30.2 K/mm3 (4.0-10.0)
--- NOTE | 2019-12-26 08:05 | DS ---
Physical Exam: SUBJECTIVE: Patient seen and examined. Pt is unresponsive. OBJECTIVE: Vital Signs Period Temp Pulse Resp BP Sys/Aguilar Pulse Ox Last 24 Hr 97.8 F-98.6 F 69-113 30-35 68-185/35-83 86-94 PHYSICAL EXAM GENERAL: Pt is unresponsive. HEENT: NCAT, ETT in place. No pupillary reflexes. LUNGS: No spontaneous breath sounds or chest rising. HEART: No spontaneous heart sounds. SKIN: cool, dry HOSPITAL COURSE: 49 yo Female with PMH DM, HTN, gastroparesis presented to ED with shortness of breath and is admitted to ICU for COVID pneumonitis. Pt was desaturating ~80% on NRB and tachypneic RR 40 and using accessory muscles. Pt was placed on HFOT, but further desaturated SpO2 ~70%. Pt was not able to sustain SpO2 greater than 88% and thus, decision made to intubate. Pt had rising WBC. Pt completed remdesevir regimen, received C-plasma, completed regimen of rocephin/azithromycin and was on Cefepime. Pt was also on full dose Lovenox. Pt remained intubated with optimized vent settings as per [employer] protocol to balance acidosis and high plateau pressures (30/350/85%/10, Pplat 35 with b/l breath sounds). Pt remained acidotic despite pushes of sodium bicarbonate. Pt was unable to receive sodium bicarbonate drip due to her fluid overload. Pt continued to having increasing inflammatory markers, indicating cytokine storm. Due to acidemia, uremia, and electrolyte abnormality, pt received HD with minimal improvement. On the morning of 12/26/2019, pt was being cleaned. Nurses reported to me that pt had 1 saturated diaper full of maroon colored blood w/ unclear etiology. Pt desaturated to ~50%, but was able to recover to SpO2 92% after turning up FiO2 to 100%. However, monitor showed asystole. Pt had no pulses. Code 99 called. Please see code sheet for details. Time of 726. Pt likely had hypoxic arrest due to multiple episodes of desaturation from slight movement. Date of Admission:12/05/19 Date of Discharge: 12/26/19 Minutes to complete discharge: 40 Discharge Summary Problems reviewed: Yes Reason For Visit: SUSP COVID 19 INFECT,ACUTE RESP FAILURE,SEPSIS Current Active Problems NELLIE (acute kidney injury) (Acute) Acute respiratory failure (Acute) COVID-19 (Acute) Controlled diabetes mellitus with hyperglycemia, with long-term current use of insulin (Acute) Controlled diabetes mellitus with hyperglycemia, with long-term current use of insulin (Acute) Hyperglycemia due to diabetes mellitus (Acute) Sepsis (Acute) Suspected COVID-19 virus infection (Acute) Condition: Guarded - Instructions Referrals: Sandi Tapia MD [Primary Care Provider] - - Home Medications Comprehensive Discharge Medication List: Ambulatory Orders Insulin Glargine,Hum.rec.anlog [Lantus Solostar PEN (NF)] 50 units SQ DAILY 09/18/16 Ondansetron [Zofran Odt -] 4 mg SL TID #21 od.tablet 10/08/16 Amitriptyline HCl [Elavil -] 10 mg PO BID 12/05/19 Gabapentin [Neurontin -] 900 mg PO BID 12/05/19 Omeprazole 20 mg PO DAILY 12/05/19 metFORMIN HCL [Metformin HCl ER] 1,000 mg PO DAILY 12/05/19 Ergocalciferol (Vitamin D2) [Vitamin D2] 50,000 units PO WEEKLY 12/08/19 This patient is new to me today: No Emergency Visit: Yes ED Registration Date: 12/05/19 Care time: The patient presented to the Emergency Department on the above date and was hospitalized for further evaluation of their emergent condition. Critical Care patient: Yes Total Critical Care Time (in minutes): 40 Critical Care Statement: The care of this patient involved high complexity decision making to prevent further life threatening deterioration of the patient's condition and/or to evaluate & treat vital organ system(s) failure or risk of failure. - Discharge Referral Referred to [facility] No ATTENDING PHYSICIAN STATEMENT I saw and evaluated the patient. I reviewed the resident's note and discussed the case with the resident. I agree with the resident's findings and plan as documented. SUBJECTIVE: OBJECTIVE: ASSESSMENT AND PLAN:
[2019-12-26 12:43] LABS: ANISOCYTOSIS 1+; MACROCYTOSIS 0; PLATELET ESTIMATE NORMAL; TEAR DROP CELLS 2+
== END 2019-12-26 07:27 | disposition expired | DRG 710 ==
LOC: JER 05:08 → JERBED 09:31 → JICU 13:21 → J8W 12-08 18:05 → J4W 12-09 13:28 → JICU 12-15 01:32
PROVIDERS: ADMIT Internal Medicine; ATTEND Internal Medicine Pulmonary Disease
PROC: 5A1955Z Respiratory Ventilation, Greater than 96 Consecutive Hours (ICD-10-PCS; principal; 2019-12-15)
PROC: 0BH17EZ Insertion of Endotracheal Airway into Trachea, Via Natural or Artificial Opening (ICD-10-PCS; 2019-12-15)
PROC: 0DH67UZ Insertion of Feeding Device into Stomach, Via Natural or Artificial Opening (ICD-10-PCS; 2019-12-15)
PROC: 3E0G76Z Introduction of Nutritional Substance into Upper GI, Via Natural or Artificial Opening (ICD-10-PCS; 2019-12-15)
PROC: 0T9B70Z Drainage of Bladder with Drainage Device, Via Natural or Artificial Opening (ICD-10-PCS; 2019-12-15)
PROC: 30233L1 Transfusion of Nonautologous Fresh Plasma into Peripheral Vein, Percutaneous Approach (ICD-10-PCS; 2019-12-15)
PROC: 05HN33Z Insertion of Infusion Device into Left Internal Jugular Vein, Percutaneous Approach (ICD-10-PCS; 2019-12-21)
PROC: B544ZZA Ultrasonography of Left Jugular Veins, Guidance (ICD-10-PCS; 2019-12-21)
PROC: 05HM33Z Insertion of Infusion Device into Right Internal Jugular Vein, Percutaneous Approach (ICD-10-PCS; 2019-12-23)
PROC: B543ZZA Ultrasonography of Right Jugular Veins, Guidance (ICD-10-PCS; 2019-12-23)
PROC: 5A1D70Z Performance of Urinary Filtration, Intermittent, Less than 6 Hours Per Day (ICD-10-PCS; 2019-12-23)
DX: A41.89 Other specified sepsis (principal); U07.1 COVID-19; E11.9 Type 2 diabetes mellitus without complications; N39.0 Urinary tract infection, site not specified; I78.8 Other diseases of capillaries; N17.9 Acute kidney failure, unspecified; J12.89 Other viral pneumonia; I11.0 Hypertensive heart disease with heart failure; J96.01 Acute respiratory failure with hypoxia; E87.70 Fluid overload, unspecified; E87.1 Hypo-osmolality and hyponatremia; E11.43 Type 2 diabetes mellitus with diabetic autonomic (poly)neuropathy; K31.84 Gastroparesis; E87.5 Hyperkalemia; Z79.4 Long term (current) use of insulin; E11.65 Type 2 diabetes mellitus with hyperglycemia; Z88.0 Allergy status to penicillin; I95.9 Hypotension, unspecified; I10 Essential (primary) hypertension; B96.20 Unspecified Escherichia coli [E. coli] as the cause of diseases classified elsewhere; D72.819 Decreased white blood cell count, unspecified; R74.0 Nonspecific elevation of levels of transaminase and lactic acid dehydrogenase [LDH]
CPT/HCPCS: 31500; 36415; 36430; 36600; 71045-TC-FY; 71275-TC; 74177-TC; 80048; 80053; 80061; 80074; 80076; 81003; 82010; 82436; 82565; 82728; 82803; 82962; 83036; 83605; 83615; 83721; 83735; 83880; 84100; 84133; 84300; 84484; 84703; 85025; 85027; 85379; 85610; 85651; 85730; 86140; 86769; 86850; 86900; 86901; 87040; 87070; 87086; 87186; 87205; 87899; 93005; 93010; 93970-TC; 94002; 99285-25; G0480; J0131; J1100; P9017; P9047; Q9967; U0003